=== PATIENT | female | born 1955 | race Caucasian/White ===

== ENCOUNTER 2023-03-18 08:19 | Outpatient (OUT) | payer MEDICARE, SELFPAY ==
--- NOTE | 2023-03-18 08:30 | MM_ITS ---
Patient: RIAZ HUMPHREY Exam Date: 03/18/2023 : 1955 Gender:F Ordering : DR Rubina Lombadri M.D. Admission #: [id number] Family : Non-Staff Physician Order #: [id number] CLICK HERE TO VIEW EXAM RADIOLOGY REPORT PROCEDURE: MM TOMOSYNTHESIS SCREENING BI COMPARISON: MG MAMM SCREEN 3D ALISHA CAD, 03/13/2022. MG MAMM SCREEN 3D ALISHA CAD, 03/02/2021. INDICATIONS: Screening mammogram Z12.31 Calculator Name NCI Breast Cancer Risk Assessment Tool 5 Year Breast Cancer Risk n/a% Lifetime Breast Cancer Risk n/a% Personal Breast Cancer Yes, Right intraductal breast cancer age 55 Personal Ovarian Cancer No Treatments Lumpectomy, Tamoxifen, Radiation Family Cancers None LOCATION: [facility] BREAST COMPOSITION: Heterogeneously dense,which may obscure small masses. FINDINGS: DIAGNOSTIC CATEGORY 2--BENIGN FINDING. NO CHANGE FROM COMPARISON. Bilateral linear scar markers. Scattered benign-appearing nodules are present. Scattered benign-appearing calcifications are present. Scattered benign-appearing lymph nodes are present. RIGHT BREAST: No significant suspicious finding. Micro clip marker upper inner quadrant, posterior breast. LEFT BREAST: No significant suspicious finding. Micro clip marker lower inner quadrant, posterior breast. RECOMMENDATIONS: ROUTINE MAMMOGRAM AND CLINICAL EVALUATION IN 12 MONTHS. PLEASE NOTE: A NORMAL MAMMOGRAM DOES NOT EXCLUDE THE POSSIBILITY OF BREAST CANCER. A CLINICALLY SUSPICIOUS PALPABLE LUMP SHOULD BE BIOPSIED. Dictated by: Julian Page MD on 03/18/2023 at 13:11 Approved by: Julian Page MD on 03/18/2023 at 13:13
== END 2023-03-18 08:20 | disposition home or self-care (01) ==
LOC: MAMMO 08:24
PROVIDERS: PCP Family Medicine
DX: Z12.31 Encounter for screening mammogram for malignant neoplasm of breast (principal)
CPT/HCPCS: 77063; 77067

== ENCOUNTER 2024-03-13 07:51 | Outpatient (OUT) | payer MEDICARE, SELFPAY ==
--- NOTE | 2024-03-13 | ECG_ITS ---
[facility] Test Date: 2024-03-13 Pat Name: Silvana Gómez Department: Room: - Gender: Female Project Eng: : 1955 Requested By: JAMIE RAMIREZ Order Number: [id number] Reading MD: NEAL ROTHMAN Measurements Intervals [place] Rate: 67 P: 51 DC: 130 QRS: 70 QRSD: 93 T: 53 QT: 398 QTc: 421 Interpretive Statements SINUS RHYTHM Compared to ECG 02/22/2020 02:06:32 No significant changes Electronically Signed On 03-15-2024 7:54:34 EDT by NEAL ROTHMAN
[2024-03-13 08:30] LABS: Basophils Percent Auto 0.7 % (0.2-2.0); Eosinophils Absolute Auto 0.5 10^3/uL (0.0-0.7); Eosinophils Percent Auto 8.9 % (0.9-7.0); Hematocrit 41.8 % (36.0-48.0); Hemoglobin 13.4 g/dL (12.0-16.0); Immature Granulocytes Abs Auto 0.01 10^3/uL (0.00-0.03); Immature Granulocytes Pct Auto 0.2 % (0.0-0.5); Lymphocytes Absolute Auto 1.4 10^3/uL (1.2-3.8); Lymphocytes Percent Auto 25.6 % (20.5-60.0); Mean Corpuscular HGB Conc 32.1 g/dL (29.9-35.2); Mean Corpuscular Hemoglobin 28.8 pg (26.7-34.0); Mean Corpuscular Volume 89.7 fL (81.0-99.0); Mean Platelet Volume 9.2 fL (9.5-13.5); Monocytes Absolute Auto 0.5 10^3/uL (0.3-0.8); Monocytes Percent Auto 8.5 % (1.7-12.0); Neutrophils Percent Auto 56.1 % (43.0-75.0); Platelet Count 235 10^3/uL (150-450); Red Blood Count 4.66 10^6/uL (4.20-5.40); Red Cell Distribution Width 13.6 % (11.0-15.0); White Blood Count 5.4 10^3/uL (4.0-11.0)
[2024-03-13 09:30] LABS: Free T4 0.82 ng/dL (0.76-1.46)
[2024-03-13 09:50] LABS: Alanine Aminotransferase 20 U/L (14-59); Albumin Globulin Ratio 1.1; Albumin Level 3.6 g/dL (3.4-5.0); Alkaline Phosphatase 66 U/L (46-116); Anion Gap 11.3; Aspartate Amino Transferase 12 U/L (15-37); BUN Creatinine Ratio 15.2; Bilirubin Total 0.3 mg/dL (0.2-1.0); Calcium 8.7 mg/dL (8.5-10.1); Carbon Dioxide 27.7 mmol/L (21.0-32.0); Chloride 106 mmol/L (98-107); Chol HDL Ratio 2.9; Cholesterol 200 mg/dL (<=200); Estimated GFR (African America >60 (>=60); Estimated GFR (Non-African Ame >60 (>=60); Globulin 3.4 g/dL; Glucose 105 mg/dL (74-106); HDL Cholesterol 68 mg/dL (40-60); Sodium 141 mmol/L (136-145); Thyroid Stimulating Hormone 3.626 uIU/mL (0.358-3.740); Triglycerides 129 mg/dL (<=150); VLDL CHOLESTEROL 25.8 mg/dL
[2024-03-15 12:07] LABS: PTH, Intact 64 pg/mL (15-65)
== END 2024-03-13 07:52 | disposition home or self-care (01) ==
LOC: LAB 07:51
PROVIDERS: PCP Family Medicine; Visit Provider Family Medicine
DX: R07.89 Other chest pain (principal); E03.9 Hypothyroidism, unspecified; E78.5 Hyperlipidemia, unspecified; E21.3 Hyperparathyroidism, unspecified
CPT/HCPCS: 36415; 80053; 80061; 83970; 84439; 84443; 85025; 93005

== ENCOUNTER 2024-05-04 08:52 | Outpatient (OUT) | payer MEDICARE, SELFPAY ==
--- NOTE | 2024-05-04 09:02 | XR_ITS ---
[address] [address] Patient Name: RIAZ HUMPHREY MRN: [id number] date: 1955 Sex: F Assigned Patient Location: [facility] Current Patient Location: Accession/Order Number: [id number] Exam Date: 05/04/2024 09:33 Report Date: 05/05/2024 06:40 At the request of: JAMIE RAMIREZ Procedure: XR DEXA axial skeleton EXAMINATION: XR DEXA axial skeleton HISTORY: Menopause Present Z78.0 COMPARISON: DEXA bone densitometry 06/23/2020 TECHNIQUE: Dual-energy X-ray absorptiometry (DXA) was performed. FINDINGS: SPINE ANALYSIS: Average bone mineral density is 1.087 g/cm2. T-score (standard deviation relative to young adult mean): -0.8 . -9.5% change since prior study. HIP ANALYSIS: Lowest bone mineral density is within the left femoral neck, 0.919 g/cm2. T-score (standard deviation relative to young adult mean): -0.9 . XR/XR DEXA axial skeleton IMPRESSION: World Health Organization Classification: Normal - Low Fracture Risk FRAX: Cannot calculate. Pharmacologic treatment recommendations * No uniform recommendation applies to all patients. Management plans must be individualized. * Consider initiating pharmacologic treatment in postmenopausal women and men >= 50 years of age who have the following: Primary fracture prevention: * T-score <= - 2.5 at the femoral neck, total hip, lumbar spine, 33% radius (some uncertainty with existing data) by DXA. * Low bone mass (osteopenia: T-score between - 1.0 and - 2.5) at the femoral neck or total hip by DXA with a 10-year hip fracture risk >= 3% or a 10-year major osteoporosis-related fracture risk >= 20% (i.e., clinical vertebral, hip, forearm, or proximal humerus) based on the [place]-adapted FRAXregistered model. Secondary fracture prevention: * Fracture of the hip or vertebra regardless of BMD [4, 5]. * Fracture of proximal humerus, pelvis, or distal forearm in persons with low bone mass (osteopenia: T-score between - 1.0 and - 2.5). The decision to treat should be individualized in persons with a fracture of the proximal humerus, pelvis, or distal forearm who do not have osteopenia or low BMD [12, 13]. Yesica MS, Sara SL, Stephany KL, Marizol EM, Myah KG, AJ, Alyson ES. The clinician's guide to prevention and treatment of osteoporosis. Osteoporos Int. 2021;33(10):5924-8772. doi: 10.1007/a77986-788-83820-x. Epub 2021Jan 18. Erratum in: Osteoporos Int. 2021Apr 19;: PMID: [id number]; PMCID: [id number]. Electronically authenticated by: OWEN AVENDANO Date: 05/05/2024 06:40
--- NOTE | 2024-05-04 09:02 | MM_ITS ---
Patient Name: RIAZ HUMPHREY MR#: [id number] : 1955 Exam Date: 05/04/2024 Ordering Doctor: DR Rubina Lombardi M.D. RADIOLOGY REPORT PROCEDURE: MM TOMOSYNTHESIS SCREENING BI COMPARISON: MM TOMOSYNTHESIS SCREENING BI, 03/18/2023. MG MAMM SCREEN 3D ALISHA CAD, 03/13/2022. INDICATIONS: Screening Calculator Name NCI Breast Cancer Risk Assessment Tool 5 Year Breast Cancer Risk n/a% Lifetime Breast Cancer Risk n/a% Personal Breast Cancer Yes, Right intraductal breast cancer age 55 Personal Ovarian Cancer No Treatments Lumpectomy, Tamoxifen, Radiation Family Cancers None LOCATION: [facility] BREAST COMPOSITION: The breasts are heterogeneously dense,which may obscure small masses. FINDINGS: DIAGNOSTIC CATEGORY 2--BENIGN FINDING. NO CHANGE FROM COMPARISON. Scattered benign-appearing nodules are present. Scattered benign-appearing calcifications are present. Scattered benign-appearing lymph nodes are present. Bilateral linear scar markers RIGHT BREAST: No significant suspicious finding. Micro clip marker upper inner quadrant, posterior breast, stable LEFT BREAST: No significant suspicious finding. RECOMMENDATIONS: ROUTINE MAMMOGRAM AND CLINICAL EVALUATION IN 12 MONTHS. PLEASE NOTE: A NORMAL MAMMOGRAM DOES NOT EXCLUDE THE POSSIBILITY OF BREAST CANCER. A CLINICALLY SUSPICIOUS PALPABLE LUMP SHOULD BE BIOPSIED. Dictated by: Julian Page MD on 05/04/2024 at 11:58 Approved by: Julian Page MD on 05/04/2024 at 12:00
--- OUTSIDE RECORDS SUMMARY | 2024-05-04 09:07 | XMS_ITS | CCD ---
Author Organization [facility] Care Team Providers Care Mandrel Cleaner Name Role Phone Rubina Ramirez MD Primary Care Provider DR RUBINA RAMIREZ Admitting Unavailable RAMIREZ, DR RUBINA Pena Attending Unavailable JAMES, DR RUBINA Pena Primary Care Unavailable JAMES, DR RUBINA Pena Consulting Unavailable HOWIE, CHANDLER Consulting Unavailable KAI CARPENTER Admitting Unavailable KAI CARPENTER Attending Unavailable JAMES, DR RUBINA Pena Primary Care Unavailable Linden, DR Jordan Consulting Unavailable FABIO KAI Consulting Unavailable JAMES, DR RUBINA Pnea Admitting Unavailable RAMIREZ, DR RUBINA Pena Attending Unavailable RAMIREZ, DR RUBINA Pena Primary Care Unavailable RAMIREZ, DR RUBINA Pena Consulting Unavailable ROHIT DUMONT JR Admitting Unavailable ROHIT DUMONT JR Attending Unavailable JAMES, DR RUBINA Pena Primary Care Unavailable Rubina Ramirez Unavailable Rubina Ramirez MD Primary Care Provider eLif Carias Unavailable SELF Referring Unavailable KAI CARPENTER Attending Unavailable RUBINA RAMIREZ Primary Care Unavailable SELF Referring Unavailable RUBINA RAMIREZ Primary Care Unavailable IZABELA PADILLA Attending Unavailable Allergies Allergy Classification Reported Allergen(s) Allergy Type Date of Onset Reaction(s) Facility (4 sources) Seasonal allergy; Translations: [SEASONAL ALLERGIES] Propensity to adverse reactions 0 [facility] (1 source) patient allergy list reviewed by nurse or physicia Propensity to adverse reactions 7 Comment:Done [facility] 401 Other (1 source) Allergies Reconciled Propensity to adverse reactions 1 Unknown [facility] Other Medications Current Medications Medication Drug Class(es) Dates Sig (Normalized) Sig (Original) ascorbic acid 226 mg / beta carotene 67760 unt / cuprous oxide 0.8 mg / dl-alpha tocopheryl acetate 200 unt / zinc oxide 34.8 mg oral capsule (3 sources) Vitamin C PreserVision ARE DS - as directed Orally Active Multi Complete - (3 sources) Multi Complete - as directed Orally Active omeprazole 10 mg delayed release oral capsule (5 sources) Proton Pump Inhibitor take 1 capsule by mouth once daily Omeprazole 10 MG 1 capsule 30 minutes before morning meal Orally Once a day Active OMEPRAZOLE MAGNE SIUM (PRILOSEC OTC ORAL) Take 1 tablet by mouth as needed. 0 Active Comment on above: Take 1 tablet by ruddy th as needed. rosuvastatin calcium 10 mg oral tablet (6 sources) HMG-CoA Reductase Inhibitor Start: 12-24-2019 take 1 tablet by mouth every twenty-four hours Crestor 10 MG 1 tablet Orally Once a day for 90 days Sep, Active Comment on above: Take 10 mg by mouth once daily. Completed/Discontinued Medications Medication Drug Class(es) Dates Sig (Normalized) Sig (Original) aspirin 81 mg delayed release oral tablet (1 source) Platelet Aggregation Inhibitor, Nonsteroidal Anti-inflammatory Drug End: 03-20-2022 aspirin, enteric coated (ADULT LOW DOSE ASPIRIN) 81 mg EC tablet Take 81 mg by mouth once daily. 0 03/20/2022 Discontinued (Discontinued by Patient) Comment on above: Take 81 mg by mouth once daily. cetirizine hydrochloride 10 mg chewable tablet (1 source) Histamine-1 Receptor Antagonist Start: 01-23-2023 cetirizine HCl (ZYRTEC) 10 mg chewable tablet Take 20 mg by mouth. 0 01/23/2023 Active Comment on above: Take 20 mg by mouth. cholecalciferol 0.025 mg oral capsule (2 sources) Vitamin D take 1 capsule by mouth once daily Cholecalciferol, Vitamin D3, 1,000 unit cap Take 1,000 Units by mouth once daily. 0 Active Comment on above: Take 1,000 Units by mouth once daily. [id number] 0.3 ml EPINEPHrine 1 mg/ml auto-injector (1 source) alpha-Adrenergic Agonist, beta-Adrenergic Agonist, Catecholamine Start: 01-23-2023 EPINEPHrine (EPIPEN 2-MORIS) 0.3 mg/0.3 mL auto-injector famotidine 20 mg oral tablet (1 source) Histamine-2 Receptor Antagonist Start: 04-18-2023 take 1 tablet by mouth every twelve hours famotidine (PEPCID) 20 mg tablet Take 1 tablet by mouth every 12 hours. 0 04/18/2023 Active Comment on above: Take 1 tablet by ruddy th every 12 hours. fluticasone propionate 0.05 mg/actuat metered dose nasal spray (2 sources) Corticosteroid take 1 spray(s) nasal route once daily fluticasone (FLONASE) 50 mcg/actuation nasal spray Use 1 [place] in each nostril once daily. 0 Active Comment on above: Use 1 [place] in each nostril once daily. hydrOXYzine hydrochloride 25 mg oral tablet (1 source) Antihistamine Start: 04-18-2023 take 1-2 tablets by mouth once daily at bedtime hydrOXYzine HCl (ATARAX) 25 mg tablet TAKE 1 - 2 TABLETS BY MOUTH EVERYDAY AT BEDTIME 0 04/18/2023 Active Comment on above: TAKE 1 - 2 TABLETS B Y MOUTH EVERYDAY AT BEDTIME KRILL OIL ORAL (1 source) End: 03-20-2022 KRILL OIL ORAL Take by mouth once daily. 0 03/20/2022 Discontinued (Discontinued by Patient) Comment on above: Take by mouth once d aily. levothyroxine sodium 0.075 mg oral tablet (6 sources) l-Thyroxine Start: 05-19-2018 take 1 tablet by mouth once daily SYNTHROID 75 mcg tablet Take 75 mcg by mouth once daily. 0 05/19/2018 Active Levothyroxine So dium 75 MCG TAKE 1 TABLET BY MOUTH EVERY DAY IN THE MORNING ON EMPTY STOMACH FOR 90 DAYS for 90 days Active Comment on above: Take 75 mcg by mouth once daily. montelukast 10 mg oral tablet (1 source) Leukotriene Receptor Antagonist Start: 023 take 1 tablet by mouth once montelukast (SINGULAIR) 10 mg tablet Take 1 tablet by mouth every afternoon. 0 04/18/2023 Active Comment on above: Take 1 tablet by ruddy th every afternoon. predniSONE 50 mg oral tablet (1 source) Start: 023 take 1 tablet by mouth once daily predniSONE (DELTASONE) 50 mg TAKE 1 TABLET BY MOUTH ONCE DAILY AT ONSET OF SWELLING OR HIVES 0 01/23/2023 Active Comment on above: TAKE 1 TABLET BY RUDDY TH ONCE DAILY AT ONSET OF SWELLING OR HIVES sulfamethoxazole 800 mg / trimethoprim 160 mg oral tablet (2 sources) Dihydrofolate Reductase Inhibitor Antibacterial, Sulfonamide Antimicrobial Start: 022 sulfamethoxazole-trim ethoprim (BACTRIM DS,SEPTRA DS) 800-160 mg per tablet triamcinolone acetonide 40 mg/ml injectable suspension (3 sources) Corticosteroid Start: 023 Kenalog-40 Dec, 60 mg VIT C/MAISHA AC/LUT/COPPER/ZNOX (PRESERVISION LUTEIN ORAL) (3 sources) VIT C/MAISHA AC/LUT/COPPER/ZNOX (PRESERVISION LUTEIN ORAL) Take by mouth. 0 Active Comment on above: Take by mouth. vitamin b12 1 mg oral tablet (2 sources) Vitamin B12 take 1 tablet by mouth once daily cyanocobalamin (VITAMIN B-12) 1,000 mcg tab Take 1,000 mcg by mouth once daily. 0 Active Comment on above: Take 1,000 mcg by mo [facility] once daily. Problems Active Problems Problem Classification Problem Date Documented Date Episodic/Chronic Allergic reactions (1 source) Urticaria, unspecified Episodic Cancer of breast (7 sources) Malignant neoplasm of lower-inner quadrant of female breast; Translations: [Malignant neoplasm of lower-inner quadrant of right female breast] Onset: 11-08-2009 Chronic Cardiac dysrhythmias (4 sources) Supraventricular tachycardia; Translations: [Supraventricular tachycardia] Onset: 04-26-2020 04-26-2020 Chronic Disorders of lipid metabolism (5 sources) Hyperlipidemia, unspecified; Translations: [Hyperlipidemia] Onset: 02-12-2019 Chronic Genitourinary symptoms and ill-defined conditions (5 sources) Dysuria; Translations: [Dysuria] Onset: 03-19-2022 Episodic Lymphadenitis (1 source) Lymphadenopathy; Translations: [Enlarged lymph nodes, unspecified] Episodic Menopausal disorders (1 source) Atrophic vaginitis; Translations: [Postmenopausal atrophic vaginitis] Onset: 07-25-2009 Chronic Nonspecific chest pain (1 source) Chest pain; Translations: [Chest pain, unspecified] Episodic Other endocrine disorders (1 source) Hyperparathyroidism; Translations: [Hyperparathyroidism, unspecified] Onset: 01-21-2017 Chronic Other injuries and conditions due to external causes (1 source) History of fall; Translations: [History of falling] Episodic Other non-traumatic joint disorders (1 source) Arthralgia of the ankle and/or foot; Translations: [Pain in right ankle and joints of right foot] Episodic Other screening for suspected conditions (not mental disorders or infectious disease) (6 sources) Patient encounter status; Translations: [Encounter for other screening for malignant neoplasm of breast] Onset: 03-13-2022 Episodic Other upper respiratory disease (3 sources) Seasonal allergic rhinitis; Translations: [Other seasonal allergic rhinitis] Chronic Other upper respiratory disease (1 source) Other seasonal allergic rhinitis Chronic Other upper respiratory disease (1 source) Allergic rhinitis; Translations: [Allergic rhinitis, unspecified] Chronic Residual codes; unclassified (1 source) Normal body mass index; Translations: [Body mass index (BMI) 22.0-22.9, adult] Episodic Thyroid disorders (2 sources) Hypothyroidism, unspecified; Translations: [Hypothyroidism] Onset: 05-29-2022 Chronic Past or Other Problems Problem Classification Problem Date Documented Da te Episodic/Chronic Cancer of breast (2 sources) Personal history of malignant neoplasm of breast; Translations: [Personal history of primary malignant neoplasm of breast] Onset: 03-24-2015 Episodic Mycoses (1 source) Onychomycosis due to dermatophyte ; Translations: [Dermatophytosis of nail] Onset: 09-07-2015 Episodic Other bone disease and musculoskeletal deformities (3 sources) Osteopenia; Translations: [Other specified disorders of bone density and structure, unspecified site] Onset: 06-25-2017 06-25-2017 Episodic Other non-traumatic joint disorders (1 source) Arthralgia of the lower leg; Translations: [Pain in right knee] Onset: 03-24-2015 Episodic Unclassified (1 source) Gynecological examination normal; Translations: [Routine gynecological examination] Onset: 04-02-2006 Results Test Name Value Interpretation Reference Range Facil shelly Stoddard 10-22-2023 SAADIA Telephone ([facility]) SILVANA HUMPHREY ([id number]) 1955 F Date Time Provider Department 10/22/23 STOMA THERAPY [facility] During your visit today, we recorded the following information about you: Portia Ghosh PCNA 10/22/2023 3:30 PM Signed Patient would like to speak to a stoma nurse, needs item#s to put in an order. Call back# [phone] Thank you, Portia Augie Coordinator II [facility] nursing Norah Morrow RN 10/22/2023 4:08 PM Signed Phone call was entered in error. Allergies As of Date: 10/22/2023 Noted Allergy Reaction SEASONAL ALLERGIES 10/18/2009 Date Reviewed: 05/21/2023 Reviewed by: Kai Carpenter MD - Fully Assessed Prescriptions as of 10/22/2023 - cetirizine HCl (ZYRTEC) 10 mg chewable tablet Take 20 mg by mouth. - EPINEPHrine (EPIPEN 2-MORIS) 0.3 mg/0.3 mL auto-injector - famotidine (PEPCID) 20 mg tablet Take 1 tablet by mouth every 12 hours. - hydrOXYzine HCl (ATARAX) 25 mg tablet TAKE 1 - 2 TABLETS BY MOUTH EVERYDAY AT BEDTIME - montelukast (SINGULAIR) 10 mg tablet Take 1 tablet by mouth every afternoon. - predniSONE (DELTASONE) 50 mg TAKE 1 TABLET BY MOUTH ONCE DAILY AT ONSET OF SWELLING OR HIVES - rosuvastatin (CRESTOR) 10 mg tablet Take 10 mg by mouth once daily. - SYNTHROID 75 mcg tablet Take 75 mcg by mouth once daily. - VIT C/MAISHA AC/LUT/COPPER/ZNOX (PRESERVISION LUTEIN ORAL) Take by mouth. Meds Comments as of 04/27/2013: Patient taking no meds Problem List As Of Date 10/22/2023 Noted Resolved Breast Cancer [C50.919] 11/08/2009 Malignant neoplasm of female breast (HCC) [C50.*11/27/2009 Osteopenia [M85.80] 06/25/2017 SVT (supraventricular tachycardia) (HCC) [I47.1*04/26/2020 Encounter Status:Closed by NORHA MORROW on 10/22/23 [facility] 05-22-2023 CNPN Telephone ([facility]) KAMSILVANA ([id number]) 1955 F Date Time Provider Department 05/22/23 KAI CARPENTER [facility] During your visit today, we recorded the following information about you: Jennifer Power 05/22/2023 9:07 AM Signed Patient states she should have a Mammogram ordered before her next appointment and you will typically order that for her. If in agreement, Can you please order Mammogram? Thanks! Kai Herzog MD 05/23/2023 8:42 AM Signed Order placed Jennifer Power 05/23/2023 10:55 AM Signed Faxed order to [facility]. Jennifer Power Allergies As of Date: 05/22/2023 Noted Allergy Reaction SEASONAL ALLERGIES 10/18/2009 Date Reviewed: 05/21/2023 Reviewed by: Kai Carpenter MD - Fully Assessed Reason for Visit: Orders [681] Primary Visit Diagnosis:Encounter for screening mammogram for malignant neoplasm of breast [Z12.31] Order(s):[facility] SCREENING W MARY LOU [[id number]] Order #: [id number] FUTURE Prescriptions as of 05/23/2023 - cetirizine HCl (ZYRTEC) 10 mg chewable tablet Take 20 mg by mouth. - EPINEPHrine (EPIPEN 2-MORIS) 0.3 mg/0.3 mL auto-injector - famotidine (PEPCID) 20 mg tablet Take 1 tablet by mouth every 12 hours. - hydrOXYzine HCl (ATARAX) 25 mg tablet TAKE 1 - 2 TABLETS BY MOUTH EVERYDAY AT BEDTIME - montelukast (SINGULAIR) 10 mg tablet Take 1 tablet by mouth every afternoon. - predniSONE (DELTASONE) 50 mg TAKE 1 TABLET BY MOUTH ONCE DAILY AT ONSET OF SWELLING OR HIVES - rosuvastatin (CRESTOR) 10 mg tablet Take 10 mg by mouth once daily. - SYNTHROID 75 mcg tablet Take 75 mcg by mouth once daily. - VIT C/MAISHA AC/LUT/COPPER/ZNOX (PRESERVISION LUTEIN ORAL) Take by mouth. Meds Comments as of 04/27/2013: Patient taking no meds Problem List As Of Date 05/22/2023 Noted Resolved Breast Cancer [C50.919] 11/08/2009 Malignant neoplasm of female breast (HCC) [C50.*11/27/2009 Osteopenia [M85.80] 06/25/2017 SVT (supraventricular tachycardia) (HCC) [I47.1]04/26/2020 Encounter Status:Closed by JENNIFER POWER on 05/23/23 Normal [facility] CBC W Auto Differential pane l (Bld)on 05-21-2023 Basophils (Bld) [#/Vol] 10*3/uL Normal <0.11 [facility] Comment on above: Order Comment: Speci men Type: BLOOD SPECIMEN Ordering Facility: [facility] Address: [address] [place] [address] Performed By: #### 5 7021-8 #### [facility] CLIA [id number] [address] [place] [address]229 Basophils/100 WBC (Bld) 0.1 % Normal [facility] Comment on above: Order Comment: Speci men Type: BLOOD SPECIMEN Ordering Facility: [facility] Address: [address] [place] [address] Performed By: #### 5 7021-8 #### [facility] CLIA [id number] [address] [place] [address] 79079 Differential cell count method Nom (Bld) Auto Normal [facility] Comment on above: Order Comment: Speci men Type: BLOOD SPECIMEN Ordering Facility: [facility] Address: [address] [place] [address] Performed By: #### 5 7021-8 #### [facility] CLIA [id number] [address] [place] [address] 52423 Eosinophils (Bld) [#/Vol] 0.40 10*3/uL Normal <0.46 [facility] Comment on above: Order Comment: Speci men Type: BLOOD SPECIMEN Ordering Facility: [facility] Address: [address] [address] Performed By: #### 5 7021-8 #### [facility] CLIA [id number] [address] [place] [address] 65565 Eosinophils/100 WBC (Bld) 5.7 % Normal [facility] Comment on above: Order Comment: Speci men Type: BLOOD SPECIMEN Ordering Facility: [facility] Address: [address] [address] Performed By: #### 5 7021-8 #### [facility] CLIA [id number] [address] [place] [address] 54952 Erythrocyte distribution width (RBC) [Ratio] 13.2 % Normal 11.5-15.0 [facility] Comment on above: Order Comment: Speci men Type: BLOOD SPECIMEN Ordering Facility: [facility] Address: [address] [address] Performed By: #### 5 7021-8 #### [facility] CLIA [id number] [address] [place] [address] 72807 Hematocrit (Bld) [Volume fraction] 41.9 % Normal 36.0-46.0 [facility] Comment on above: Order Comment: Speci men Type: BLOOD SPECIMEN Ordering Facility: [facility] Address: [address] [address] Performed By: #### 5 7021-8 #### [facility] CLIA [id number] [address] [place] [address] 61747 Hemoglobin (Bld) [Mass/Vol] 13.8 g/dL Normal 11.5-15.5 [facility] Comment on above: Order Comment: Speci men Type: BLOOD SPECIMEN Ordering Facility: [facility] Address: [address] [address] Performed By: #### 5 7021-8 #### [facility] CLIA [id number] [address] [place] [address] 25908 Immature granulocytes (Bld) [#/Vol] 10*3/uL Normal <0.10 [facility] Comment on above: Order Comment: Speci men Type: BLOOD SPECIMEN Ordering Facility: [facility] Address: [address] [address] Performed By: #### 5 7021-8 #### [facility] CLIA [id number] [address] [place] [address] 72326 Immature granulocytes/100 WBC (Bld) 0.3 % Normal [facility] Comment on above: Order Comment: Speci men Type: BLOOD SPECIMEN Ordering Facility: [facility] Address: [address] [place] [address] Performed By: #### 5 7021-8 #### [facility] CLIA [id number] [address] [place] [address] 95577 Lymphocytes (Bld) [#/Vol] 1.53 10*3/uL Normal 1.00-4.00 [facility] Comment on above: Order Comment: Speci men Type: BLOOD SPECIMEN Ordering Facility: [facility] Address: [address] [place] [address] Performed By: #### 5 7021-8 #### [facility] CLIA [id number] [address] [place] [address] 69526 Lymphocytes/100 WBC (Bld) 22.0 % Normal [facility] Comment on above: Order Comment: Speci men Type: BLOOD SPECIMEN Ordering Facility: [facility] Address: [address] [address] Performed By: #### 5 7021-8 #### [facility] CLIA [id number] [address] [place] [address] 14247 MCH (RBC) [Entitic mass] 29.2 pg Normal 26.0-34.0 [facility] Comment on above: Order Comment: Speci men Type: BLOOD SPECIMEN Ordering Facility: [facility] Address: [address] [address] Performed By: #### 5 7021-8 #### [facility] CLIA [id number] [address] [place] [address] 39566 MCHC (RBC) [Mass/Vol] 32.9 g/dL Normal 30.5-36.0 [facility] Comment on above: Order Comment: Speci men Type: BLOOD SPECIMEN Ordering Facility: [facility] Address: [address] [address] Performed By: #### 5 7021-8 #### [facility] CLIA [id number] [address] [place] [address] 67241 MCV (RBC) [Entitic vol] 88.6 fL Normal 80.0-100.0 [facility] Comment on above: Order Comment: Speci men Type: BLOOD SPECIMEN Ordering Facility: [facility] Address: [address] [address] Performed By: #### 5 7021-8 #### [facility] CLIA [id number] [address] [place] [address] 64373 Monocytes (Bld) [#/Vol] 0.52 10*3/uL Normal <0.87 [facility] Comment on above: Order Comment: Speci men Type: BLOOD SPECIMEN Ordering Facility: [facility] Address: [address] [address] Performed By: #### 5 7021-8 #### [facility] CLIA [id number] [address] [place] [address] 30199 Monocytes/100 WBC (Bld) 7.5 % Normal [facility] Comment on above: Order Comment: Speci men Type: BLOOD SPECIMEN Ordering Facility: [facility] Address: [address] [place] [address] Performed By: #### 5 7021-8 #### [facility] CLIA [id number] [address] [place] [address] 30525 Neutrophils (Bld) [#/Vol] 4.49 10*3/uL Normal 1.45-7.50 [facility] Comment on above: Order Comment: Speci men Type: BLOOD SPECIMEN Ordering Facility: [facility] Address: [address] [address] Performed By: #### 5 7021-8 #### [facility] CLIA [id number] [address] [place] [address] 25221 Neutrophils/100 WBC (Bld) 64.4 % Normal [facility] Comment on above: Order Comment: Speci men Type: BLOOD SPECIMEN Ordering Facility: [facility] Address: [address] [address] Performed By: #### 5 7021-8 #### [facility] CLIA [id number] [address] [place] [address] 51748 Nucleated RBC (Bld) [#/Vol] 10*3/uL Normal <0.01 [facility] Comment on above: Order Comment: Speci men Type: BLOOD SPECIMEN Ordering Facility: [facility] Address: [address] [address] Performed By: #### 5 7021-8 #### [facility] CLIA [id number] [address] [place] [address] 30583 Nucleated RBC/100 WBC (Bld) [Ratio] 0.0 /100 WBC Normal [facility] Comment on above: Order Comment: Speci men Type: BLOOD SPECIMEN Ordering Facility: [facility] Address: [address] [address] Performed By: #### 5 7021-8 #### [facility] CLIA [id number] [address] [place] [address] 27654 Platelet mean volume (Bld) [Entitic vol] 9.2 fL Normal 9.0-12.7 [facility] Comment on above: Order Comment: Speci men Type: BLOOD SPECIMEN Ordering Facility: [facility] Address: [address] [address] Performed By: #### 5 7021-8 #### [facility] CLIA [id number] [address] [place] [address] Platelets (Bld) [#/Vol] 198 10*3/uL Normal 150-400 [facility] Comment on above: Order Comment: Speci men Type: BLOOD SPECIMEN Ordering Facility: [facility] Address: [address] [place] [address] Performed By: #### 5 7021-8 #### [facility] CLIA [id number] [address] [place] [address] 56285 RBC (Bld) [#/Vol] 4.73 10*6/uL Normal 3.90-5.20 [facility] Comment on above: Order Comment: Speci men Type: BLOOD SPECIMEN Ordering Facility: [facility] Address: [address] [place] [address] Performed By: #### 5 7021-8 #### [facility] CLIA [id number] [address] [place] [address] 39350 WBC (Bld) [#/Vol] 6.97 10*3/uL Normal 3.70-11.00 [facility] Comment on above: Order Comment: Speci men Type: BLOOD SPECIMEN Ordering Facility: [facility] Address: [address] [place] [address] Performed By: #### 5 7021-8 #### [facility] CLIA [id number] [address] [place] [address] 38490 CNOVSPon 05-21-2023 CNOVSP Visit (SP) Office ([facility]) SILVANA HUMPHREY ([id number]) 1955 F Date Time Provider Department 05/21/23 3:00 PM KAI CARPENTER During your visit today, we recorded the following information about you: Temperature Pulse Respiration Blood pressure 97.6 degrees 74/minute 16/minute 134/70 Weight 63 kg Kai Carpenter MD 05/21/2023 3:38 PM Signed Patient: Silvana Humphrey Location: [facility] : 1955 Attending Physician: Dr.Kasra Carpenter Date: May 21, 2023 Note Type: Progress Note Chief Complaint: Breast cancer. HPI: Ms. Humphrey is a 68-year-old woman with a history of right breast cancer 07/2009 : abnormality seen on screening mammogram, biopsy recommended 08/2010 : completes biopsy, notes intraductal carcinoma- [facility] review notes invasive ductal carcinoma and DCIS 09/2009 : MRI breast completed and follow up with Dr. 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 Pineda and Dr. Ward : therapy held during evaluation 04/2013 : estradiol in post-menopausal range- started anastrazole 05/2014 : repeat estradiol level was 30, restarted tamoxifen 08/2014 : repeat testing notes post-menopausal levels of estradiol and starts aromasin 04/2018 : patient notes continued symptoms of dyspareunia, joint aches and worsening hot flashes, stops aromasin and declines further hormonal therapy 02/2021: Mammogram Dexa Scan 05/2021: Screening colonoscopy: negative Patient returns in follow up today. Previously followed by Dr. Lieberman. She feels well wxcept for Hives which she is seeing an electrician's helper and they feel that it may be an autoimmune disease Past Medical History: Breast cancer as above, benign breast lesions as above, and seasonal allergies. REVIEW OF SYSTEMS: CONSTITUTIONAL: Patient is currently in her baseline state health, no fevers chills or sweats, no current hot flashes CARDIOVASCULAR: No chest pain, dyspnea, palpitations, orthopnea, PND, ankle edema. PULM: No dyspnea, unexplained cough. Has not been wheezing recently GI: No dysphagia/odynophagia , problematic reflux, constipation, diarrhea, changes in stool habits, hematochezia, melena. Last colonoscopy 2009. :denies vaginal bleeding, denies pain with intercourse NEURO: Denies issues with neuropathy or focal muscle deficits MUSC-SKEL: Joint discomfort resolved INTEGUMENTARY: No bruising rash or jaundice END: No current hot flashes Breast: Denies changes on self breast examination Current Outpatient Medications Medication Sig Dispense Refill cetirizine HCl (ZYRTEC) 10 mg chewable tablet Take 20 mg by mouth. EPINEPHrine (EPIPEN 2-MORIS) 0.3 mg/0.3 mL auto-injector famotidine (PEPCID) 20 mg tablet Take 1 tablet by mouth every 12 hours. hydrOXYzine HCl (ATARAX) 25 mg tablet TAKE 1 - 2 TABLETS BY MOUTH EVERYDAY AT BEDTIME montelukast (SINGULAIR) 10 mg tablet Take 1 tablet by mouth every afternoon. predniSONE (DELTASONE) 50 mg TAKE 1 TABLET BY MOUTH ONCE DAILY AT ONSET OF SWELLING OR HIVES rosuvastatin (CRESTOR) 10 mg tablet Take 10 mg by mouth once daily. SYNTHROID 75 mcg tablet Take 75 mcg by mouth once daily. VIT C/MAISHA AC/LUT/COPPER/ZNOX (PRESERVISION LUTEIN ORAL) Take by mouth. sulfamethoxazole-trim ethoprim (BACTRIM DS,SEPTRA DS) 800-160 mg per tablet Cholecalciferol, Vitamin D3, 1,000 unit cap Take 1,000 Units by mouth once daily. fluticasone (FLONASE) 50 mcg/actuation nasal spray Use 1 [place] in each nostril once daily. cyanocobalamin (VITAMIN B-12) 1,000 mcg tab Take 1,000 mcg by mouth once daily. No current facility-administered medications for this visit. Allergies: No known drug allergies. Review Of Systems: BP 103/69 Pulse 76 Temp (Src) 98.2 (Oral) Resp 18 Ht 5' 5 (1.65m) Wt 137 lb 3.2 oz (62.2kg) SpO2 100% BMI 22.83 kg/(m2). PHYSICAL EXAMINATION General: Alert and oriented, no distress, pleasant and cooperative. Heart: Regular, normal S1 and S2, no murmurs, rubs, or gallops Lungs: Clear to auscultation bilaterally no crackles or wheezes Abdomen: NT, ND no organomegaly Extremities: Feet/ankles without edema, posterior tibial pulses full and symmetrical Breast: No palpable nodules or other worrisome findings in either breast Lymph: no cervical, supraclavicular or axillary adenopathy Skin: no sores or other lesions, no bruising Msk: no joint swelling or tender areas. Breast: no masses bilaterall and no axillary fulln (more content not included)... Normal [facility] Comprehensive metabolic 2000 panelon 05-21-2023 Albumin [Mass/Vol] 4.8 g/dL Normal 3.9-4.9 [facility] Comment on above: Order Comment: Speci men Type: BLOOD SPECIMEN Ordering Facility: [facility] Address: [address] [place] [address] Performed By: #### 2 4323-8 #### [facility] CLIA [id number] [address] [place] [address]142 ALP [Catalytic activity/Vol] 72 U/L Normal 34-123 [facility] Comment on above: Order Comment: Speci men Type: BLOOD SPECIMEN Ordering Facility: [facility] Address: [address] [place] [address] Performed By: #### 2 4323-8 #### [facility] CLIA [id number] [address] [place] [address] 65513 ALT [Catalytic activity/Vol] 13 U/L Normal 7-38 [facility] Comment on above: Order Comment: Speci men Type: BLOOD SPECIMEN Ordering Facility: [facility] Address: [address] [place] [address] Performed By: #### 2 4323-8 #### [facility] CLIA [id number] [address] [place] [address] 31266 Anion gap [Moles/Vol] 12 mmol/L Normal 9-18 [facility] Comment on above: Order Comment: Speci men Type: BLOOD SPECIMEN Ordering Facility: [facility] Address: [address] [address] Performed By: #### 2 4323-8 #### [facility] CLIA [id number] [address] [place] [address] 71384 AST [Catalytic activity/Vol] 16 U/L Normal 13-35 [facility] Comment on above: Order Comment: Speci men Type: BLOOD SPECIMEN Ordering Facility: [facility] Address: [address] [address] Performed By: #### 2 4323-8 #### [facility] CLIA [id number] [address] [place] [address] 29064 Bilirubin [Mass/Vol] 0.2 mg/dL Normal 0.2-1.3 [facility] Comment on above: Order Comment: Speci men Type: BLOOD SPECIMEN Ordering Facility: [facility] Address: [address] [address] Performed By: #### 2 4323-8 #### [facility] CLIA [id number] [address] [place] [address] 08324 Calcium [Mass/Vol] 9.6 mg/dL Normal 8.5-10.2 [facility] Comment on above: Order Comment: Speci men Type: BLOOD SPECIMEN Ordering Facility: [facility] Address: [address] [address] Performed By: #### 2 4323-8 #### [facility] CLIA [id number] [address] [place] [address] 14951 Chloride [Moles/Vol] 104 mmol/L Normal 97-105 [facility] Comment on above: Order Comment: Speci men Type: BLOOD SPECIMEN Ordering Facility: [facility] Address: [address] [address] Performed By: #### 2 4323-8 #### [facility] CLIA [id number] [address] [place] [address] 95960 CO2 [Moles/Vol] 24 mmol/L Normal 22-30 [facility] Comment on above: Order Comment: Speci men Type: BLOOD SPECIMEN Ordering Facility: [facility] Address: [address] [address] Performed By: #### 2 4323-8 #### [facility] CLIA [id number] [address] [place] [address] 39591 Creatinine [Mass/Vol] 0.92 mg/dL Normal 0.58-0.96 [facility] Comment on above: Order Comment: Speci men Type: BLOOD SPECIMEN Ordering Facility: [facility] Address: [address] [address] Performed By: #### 2 4323-8 #### [facility] CLIA [id number] [address] [place] [address] 69285 Creatinine and Glomerular filtration rate.predicted panel (S/P/Bld) 68 mL/min/1.73m??? Normal >=60 [facility] Comment on above: Order Comment: Speci men Type: BLOOD SPECIMEN Ordering Facility: [facility] Address: [address] [place] [address] Result Comment: Lupe mated Glomerular Filtration Rate (eGFR) is calculated using the 2020 CKD-EPI creatinine equation. This equation utilizes serum creatinine, sex, and age as parameters. The creatinine assay has traceable calibration to isotope dilution-mass spectrometry. Refer to KDIGO guidelines for clinical interpretation. In patients with unstable renal function, e.g. those with acute kidney injury, the eGFR may not accurately reflect actual GFR. Performed By: #### 2 4323-8 #### [facility] CLIA [id number] [address] [place] [address] 48242 Glucose [Mass/Vol] 110 mg/dL High 74-99 [facility] Comment on above: Order Comment: Speci anabel Type: BLOOD SPECIMEN Ordering Facility: [facility] Address: [address] [place] [address] Result Comment: The [place] Diabetes Association (ADA) provides guidance for cutoff values for fasting glucose and random glucose. The ADA defines fasting as no caloric intake for at least 8 hours. Fasting plasma glucose results between 100 to 125 mg/dL indicate increased risk for diabetes (prediabetes). Fasting plasma glucose results greater than or equal to 126 mg/dL meet the criteria for diagnosis of diabetes. In the absence of unequivocal hyperglycemia, results should be confirmed by repeat testing. In a patient with classic symptoms of hyperglycemia or hyperglycemic crisis, random plasma glucose results greater than or equal to 200 mg/dL meet the criteria for diagnosis of diabetes. Reference: Standards of Medical Care in Diabetes 2016, [place] [employer] Association. Diabetes Care. 2016.39(Suppl 1). Performed By: #### 2 4323-8 #### [facility] CLIA [id number] [address] [place] [address] Potassium [Moles/Vol] 3.7 mmol/L Normal 3.7-5.1 [facility] Comment on above: Order Comment: Speci anabel Type: BLOOD SPECIMEN Ordering Facility: [facility] Address: [address] [place] [address] Performed By: #### 2 4323-8 #### [facility] CLIA [id number] [address] [place] [address] 66297 Protein [Mass/Vol] 6.8 g/dL Normal 6.3-8.0 [facility] Comment on above: Order Comment: Sonia little Type: BLOOD SPECIMEN Ordering Facility: [facility] Address: [address] [place] [address] Performed By: #### 2 4323-8 #### [facility] CLIA [id number] [address] [place] [address] 34807 Sodium [Moles/Vol] 140 mmol/L Normal 136-144 [facility] Comment on above: Order Comment: Armandoi anabel Type: BLOOD SPECIMEN Ordering Facility: [facility] Address: [address] [address] Performed By: #### 2 4323-8 #### [facility] CLIA [id number] [address] [place] [address] Urea nitrogen [Mass/Vol] 16 mg/dL Normal 7-21 [facility] Comment on above: Order Comment: Speci men Type: BLOOD SPECIMEN Ordering Facility: [facility] Address: [address] [address] Performed By: #### 2 4323-8 #### [facility] CLIA [id number] [address] [place] [address] TSH SerPl-aCncon 05-21-2023 TSH Qn 2.560 m[IU]/L Normal 0.270-4.200 [facility] Comment on above: Order Comment: Speci men Type: BLOOD SPECIMEN Ordering Facility: [facility] Address: [address] [id number] Performed By: #### 3 016-3 #### [facility] CLIA [id number] [address] [facility] [id number] [place], [place] [id number] [facility] CNPNon 03-27-2023 CNPN Telephone (HEMTSA) SILVANA HUMPHREY ([id number]) 1955 F Date Time Provider Department 03/27/23 ROSELINE RED During your visit today, we recorded the following information about you: Roseline Red RN 03/27/2023 4:53 PM Signed Pt aware of negative mammogram results from [facility]. Roseline Red RN Allergies As of Date: 03/27/2023 Noted Allergy Reaction SEASONAL ALLERGIES 10/18/2009 Date Reviewed: 03/20/2022 Reviewed by: Kai Carpenter MD - Fully Assessed Reason for Visit: Results [95] Prescriptions as of 03/27/2023 - sulfamethoxazole-trim ethoprim (BACTRIM DS,SEPTRA DS) 800-160 mg per tablet - rosuvastatin (CRESTOR) 10 mg tablet Take 10 mg by mouth once daily. - SYNTHROID 75 mcg tablet Take 75 mcg by mouth once daily. - Cholecalciferol, Vitamin D3, 1,000 unit cap Take 1,000 Units by mouth once daily. - fluticasone (FLONASE) 50 mcg/actuation nasal spray Use 1 [place] in each nostril once daily. - OMEPRAZOLE MAGNESIUM (PRILOSEC OTC ORAL) Take 1 tablet by mouth as needed. - VIT C/MAISHA AC/LUT/COPPER/ZNOX (PRESERVISION LUTEIN ORAL) Take by mouth. - cyanocobalamin (VITAMIN B-12) 1,000 mcg tab Take 1,000 mcg by mouth once daily. Meds Comments as of 04/27/2013: Patient taking no meds Problem List As Of Date 03/27/2023 Noted Resolved Breast Cancer [C50.919] 11/08/2009 Malignant neoplasm of female breast (HCC) [C50.*11/27/2009 Osteopenia [M85.80] 06/25/2017 SVT (supraventricular tachycardia) (HCC) [I47.1]04/26/2020 Encounter Status:Closed by ROSELINE RED on 03/27/23 Normal [facility] XR ANKLE RT MIN 3 VIEWSon XR ANKLE RT MIN 3 VIEWS EXAM: XR ANKLE RT MIN 3 VIEWS 05/26/2022. FINDINGS: Frontal, oblique and lateral views for 3 views of the right ankle were obtained. HISTORY: Arthralgia of the ankle and/or foot. COMPARISON: None. IMPRESSION: 1. The osseous alignment is intact. No acute fracture or dislocation. 2. Plantar calcaneal enthesophyte is noted. 3. Joint spaces are relatively well-maintained. 4. There is no radiopaque foreign body. Electronically authenticated by: [facility] Date: 2022-05-27 17:00 Normal [facility] FREE T4on 05-26-2022 Free T4 [Mass/Vol] 0.91 ng/dL Normal 0.76-1.46 [facility] Comment on above: Performed By: #### F T4 #### [facility] [address] [place] [address] Dr. Magalys Byrnes LIPID PROFILEon 05-26-2022 CHOL-HDL RATIO NORM SEE BELOW Normal [facility] Comment on above: Result Comment: 3.3 - 4.4 LOW RISK 4.4 - 7.1 AVERAGE RISK 7.1 - 11.0 MODERATE RISK >11.0 HIGH RISK Performed By: #### L IPID, CMP, TSH #### [facility] [address] [address] [address] Magalys Byrnes Cholesterol [Mass/Vol] 219 mg/dL Critically high <=200 [facility] Comment on above: Performed By: #### L IPID, CMP, TSH #### [facility] [address] [address] [address] Magalys Byrnes Cholesterol in HDL [Mass/Vol] 71 mg/dL Critically high 40-60 [facility] Comment on above: Performed By: #### L IPID, CMP, TSH #### [facility] [address] [place] [address] Dr. Magalys Byrnes Cholesterol in LDL [Mass/Vol] 118.4 mg/dL Normal [facility] Comment on above: Performed By: #### L IPID, CMP, TSH #### [facility] [address] [place] [address] Dr. Magalys Byrnes Cholesterol.total/C holesterol in HDL [Mass ratio] 3.1 {ratio} Normal [facility] Comment on above: Performed By: #### L IPID, CMP, TSH #### [facility] [address] [place] [address] Dr. Magalys Byrnes HDL NORMAL > or = 60 mg/dl - LO W CARDIOVASCULAR RISK <40 mg/dl - HIGH CARDIOVASCULAR RISK Normal [facility] Comment on above: Performed By: #### L IPID, CMP, TSH #### [facility] [address] [place] [address] Dr. Magalys Byrnes LDL CALC NORMAL SEE BELOW Normal [facility] Comment on above: Result Comment: <100 mg/dl OPTIMAL 100 - 129 mg/dl NEAR OR ABOVE OPTIMAL 130 - 159 mg/dl BORDERLINE HIGH 160 - 189 mg/dl HIGH >190 mg/dl VERY HIGH Performed By: #### L IPID, CMP, TSH #### [facility] [address] [address] [address] Magalys Byrnes Triglyceride [Mass/Vol] 148 mg/dL Normal <=150 [facility] Comment on above: Performed By: #### L IPID, CMP, TSH #### [facility] [address] [address] [address] Magalys Byrnes VLDL CALC 29.6 mg/dL Normal [facility] Comment on above: Performed By: #### L IPID, CMP, TSH #### [facility] [address] [address] [address] Magalys Byrnes PROF 14(COMP METB)on 022 Albumin [Mass/Vol] 4.2 g/dL Normal 3.4-5.0 [facility] Comment on above: Performed By: #### L IPID, CMP, TSH #### [facility] [address] [place] [address] Dr. Magalys Byrnes Albumin/Globulin [Mass ratio] 1.3 {ratio} Normal [facility] Comment on above: Performed By: #### L IPID, CMP, TSH #### [facility] [address] [place] [address] Dr. Magalys Byrnes ALP [Catalytic activity/Vol] 72 U/L Normal 46-116 [facility] Comment on above: Performed By: #### L IPID, CMP, TSH #### [facility] [address] [place] [address] Dr. Magalys Byrnes ALT [Catalytic activity/Vol] 22 U/L Normal 14-59 [facility] Comment on above: Performed By: #### L IPID, CMP, TSH #### [facility] [address] [place] [address] Dr. Magalys Byrnes Anion gap [Moles/Vol] 10.7 mmol/L Normal [facility] Comment on above: Performed By: #### L IPID, CMP, TSH #### [facility] [address] [place] [address] Dr. Magalys Byrnes AST [Catalytic activity/Vol] 13 U/L Critically low 15-37 [facility] Comment on above: Performed By: #### L IPID, CMP, TSH #### [facility] [address] [address] [address] Magalys Byrnes Bilirubin [Mass/Vol] 0.4 mg/dL Normal 0.2-1.0 [facility] Comment on above: Performed By: #### L IPID, CMP, TSH #### [facility] [address] [address] [address] Magalys Byrnes Calcium [Mass/Vol] 9.2 mg/dL Normal 8.5-10.1 [facility] Comment on above: Performed By: #### L IPID, CMP, TSH #### [facility] [address] [address] [address] Magalys Byrnes Chloride [Moles/Vol] 105 mmol/L Normal 98-107 [facility] Comment on above: Performed By: #### L IPID, CMP, TSH #### [facility] [address] [place] [address] Dr. Magalys Byrnes CO2 [Moles/Vol] 30.2 mmol/L Normal 21.0-32.0 [facility] Comment on above: Performed By: #### L IPID, CMP, TSH #### [facility] [address] [place] [address] Dr. Magalys Byrnes Creatinine [Mass/Vol] 0.73 mg/dL Normal 0.55-1.02 [facility] Comment on above: Performed By: #### L IPID, CMP, TSH #### [facility] [address] [place] [address] Dr. Magalys Byrnes EGFR-AF HAITIAN >60 Normal >=60 [facility] Comment on above: Performed By: #### L IPID, CMP, TSH #### [facility] [address] [place] [address] Dr. Magalys Byrnes EGFR-NON AF HAITIAN >60 Normal >=60 [facility] Comment on above: Performed By: #### L IPID, CMP, TSH #### [facility] [address] [place] [address] Dr. Magalys Byrnes Globulin (S) [Mass/Vol] 3.3 g/dL Normal [facility] Comment on above: Performed By: #### L IPID, CMP, TSH #### [facility] [address] [place] [address] Dr. Magalys Byrnes Glucose [Mass/Vol] 103 mg/dL Normal 74-106 [facility] Comment on above: Performed By: #### L IPID, CMP, TSH #### [facility] [address] [place] [address] Dr. Magalys Byrnes Potassium [Moles/Vol] 3.9 mmol/L Normal 3.5-5.1 [facility] Comment on above: Performed By: #### L IPID, CMP, TSH #### [facility] [address] [place] [address] Dr. Magalys Byrnes Protein [Mass/Vol] 7.5 g/dL Normal 6.4-8.2 [facility] Comment on above: Performed By: #### L IPID, CMP, TSH #### [facility] [address] [place] [address] Dr. Magalys Byrnes Sodium [Moles/Vol] 142 mmol/L Normal 136-145 [facility] Comment on above: Performed By: #### L IPID, CMP, TSH #### [facility] [address] [place] [address] Dr. Magalys Byrnes Urea nitrogen [Mass/Vol] 12.0 mg/dL Normal 7.0-18.0 [facility] Comment on above: Performed By: #### L IPID, CMP, TSH #### [facility] [address] [place] [address] Dr. Magalys Byrnes Urea nitrogen/Creatinine [Mass ratio] 16.4 mg/mg Normal [facility] Comment on above: Performed By: #### L IPID, CMP, TSH #### [facility] [address] [place] [address] Dr. Magalys Byrnes TSHon 05-26-2022 TSH 1.007 uIU/mL Normal 0.358-3.740 [facility] Comment on above: Performed By: #### L IPID, CMP, TSH #### [facility] [address] [place] [address] Dr. Magalys Byrnes CULTURE URINEon 03-21-2022 CULTURE URINE Isolate 1 Escherichia coli >100,000 cfu/mL of ORGANISM 1 Escherichia coli ANTIBIOTIC M.I.C RX STATUS Ampicillin >=32 R F Ampicillin/Sulbactam 4 S F Piperacillin/Tazobact am <=4 S F Cefazolin <=4 S F Ceftazidime <=1 S F Ceftriaxone <=1 S F Ertapenem <=0.5 S F Imipenem <=0.25 S F Amikacin <=2 S F Gentamicin <=1 S F Tobramycin <=1 S F Ciprofloxacin <=0.25 S F Levofloxacin <=0.12 S F Nitrofurantoin <=16 S F Trimethoprim/Sulfamet hoxazole <=20 S F Normal [facility] Comment on above: Performed By: #### U RCX #### [facility] [address] [place] [address] Dr. Magalys Byrnes MG MAMM SCREEN 3D ALISHA CADon 03-13-2022 MG MAMM SCREEN 3D ALISHA CAD Patient: SILVANA HUMPHREY Exam Date: 03/13/2022 : 1955 Gender:F Ordering : KAI CARPENTER Admission #: [id number] Family : DR RUBINA RAMIREZ M.D. Order #: [id number] CLICK HERE TO VIEW EXAM RADIOLOGY REPORT PROCEDURE: MAMMOGRAM SCREENING 3D BILATERAL CAD COMPARISON: MG MAMM SCREEN ALISHA W CAD, 02/26/2020. MG MAMM SCREEN 3D ALISHA CAD, 03/02/2021. INDICATIONS: Screening mammography Calculator Name NCI Breast Cancer Risk Assessment Tool 5 Year Breast Cancer Risk n/a% Lifetime Breast Cancer Risk n/a% Personal Breast Cancer Yes, Right intraductal breast cancer age 55 Personal Ovarian Cancer No Treatments Lumpectomy, Tamoxifen, Radiation Family Cancers None LOCATION: [facility] BREAST COMPOSITION: Heterogeneously dense,which may obscure small masses. FINDINGS: DIAGNOSTIC CATEGORY 2--BENIGN FINDING. NO CHANGE FROM COMPARISON. Scattered benign-appearing nodules are present. Scattered benign-appearing calcifications are present. Scattered benign-appearing lymph nodes are present. RIGHT BREAST: No significant suspicious finding. Micro clip markers in the axillary tail. Linear scar marker LEFT BREAST: No significant suspicious finding. Linear scar markers RECOMMENDATIONS: ROUTINE MAMMOGRAM AND CLINICAL EVALUATION IN 12 MONTHS. PLEASE NOTE: A NORMAL MAMMOGRAM DOES NOT EXCLUDE THE POSSIBILITY OF BREAST CANCER. A CLINICALLY SUSPICIOUS PALPABLE LUMP SHOULD BE BIOPSIED. Dictated by: Rohit Page MD on 03/13/2022 at 13:40 Approved by: Rohit Page MD on 03/13/2022 at 13:44 Normal [facility] COVID-19 Antigenon 1 COVID-19 Antigen Healthcare Worker?: N Kaylah Reference Kaylah Reference Negative SARS-CoV+SARS-CoV-2 (COVID-19) Ag [Presence] in Respiratory specimen by Rapid immunoassay Negative for SARS Antigen by [facility] COVID19 Blank Space Kaylah Disclaimer Negative results, from patients with symptom Kaylah Disclaimer onset beyond five days, should be treated as Kaylah Disclaimer presumptive and confirmation with a molecular Kaylah Disclaimer assay, if necessary, for patient management, Kaylah Disclaimer may be performed. Negative results do not rule Kaylah Disclaimer out COVID-19 and should not be used as the sole Kaylah Disclaimer basis for treatment or patient management Kaylah Disclaimer decisions, including infection control decisions. Kaylah Disclaimer Negative results should be considered in the Kaylah Disclaimer context of a patient's recent exposures, history Kaylah Disclaimer and the presence of clinical signs and symptoms Kaylah Disclaimer consistent with COVID-19. COVID19 Blank Space Kaylah Disclaimer The Kaylah SARS Antigen [facility] does not differentiate Kaylah Disclaimer between SARS-CoV and SARS-CoV-2. COVID19 Blank Space Kaylah Disclaimer This test was developed and its performance Kaylah Disclaimer characteristic determined by [employer] and Kaylah Disclaimer validated at [facility]. This Kaylah Disclaimer test has not been FDA cleared or approved. This Kaylah Disclaimer test has been authorized by FDA under an Emergency Use Kaylah Disclaimer Authorization (EUA). This test has been validated Kaylah Disclaimer in accordance with the FDA's Guidance Document (Policy Kaylah Disclaimer for Diagnostics Testing in Laboratories Certified to Kaylah Disclaimer Perform High Complexity Testing under CLIA prior to Kaylah Disclaimer Emergency Use Authorization for Coronavirus Kaylah Disclaimer is during the Public Health Emergency) Kaylah Disclaimer issued on December 24, 2019. This test is only authorized Kaylah Disclaimer for the duration of time the declaration that Kaylah Disclaimer circumstances exist justifying the authorization of Kaylah Disclaimer the emergency use of in vitro diagnostic tests for Kaylah Disclaimer detection of SARS-CoV-2 virus and/or diagnosis of Kaylah Disclaimer COVID-19 infection under section 564(b)(1) of the [place] Disclaimer Act, 21 U.S.C. 360bbb-3(b)(1), unless the [place] Disclaimer authorization is terminated or revoked sooner. PERFORMED BY: [place] [address] PATHOLOGIST EXECUTIVE VICE PRESIDENT AND CHIEF OPERATING OFFICER TONO JONES M.D. Normal [facility] Comment on above: Performed By: #### C OVID-19 KAYLAH, SOFIANEG #### [facility] [address] [id number] [facility] [place] Ag Negativeon 05-26-20 21 [place] Ag Negative Negative Normal Negative [facility] Comment on above: Result Comment: This is a duplicate [place] SARS Antigen (GROVER) result to be used for statistical tracking purpose only. PERFORMED BY: [facility] [address] [place] [address] PATHOLOGIST EXECUTIVE VICE PRESIDENT AND CHIEF OPERATING OFFICER TONO JONES M.D. Performed By: #### C OVID-19 KAYLAH, SOFIANEG #### [facility] [address] Vital Signs Date Time Vital Sign Value Performing Clinician Facility 01-14-2023 10:30-0400 Body height 162.56 cm Rubina Ramirez Other [facility] Other 01-14-2023 10:30-0400 Body mass index (BMI) [Ratio] 23 kg/m2 Rubina Ramirez Other [facility] Other 01-14-2023 10:30-0400 Body weight 60.78 kg Rubina Ramirez Other [facility] Other 01-14-2023 10:30-0400 Diastolic blood pressure 68 mm[Hg] Rubina Ramirez Other [facility] Other 01-14-2023 10:30-0400 SaO2% (BldA) [Mass fraction] 98 % Rubina Ramirez Other [facility] Other 01-14-2023 10:30-0400 Systolic blood pressure 100 mm[Hg] Rubina Ramirez Other [facility] Other 03-20-2022 15:26-0400 Body height 165.1 cm Kai Carpenter MD Work Phone: [facility] 03-20-2022 15:26-0400 Body temperature 97.3 [degF] Kai Carpenter MD Work Phone: [facility] 03-20-2022 15:26-0400 Body weight 62.6 kg Kai Carpenter MD Work Phone: [facility] 03-20-2022 15:26-0400 Diastolic blood pressure 66 mm[Hg] Kai Carpenter MD Work Phone: [facility] 03-20-2022 15:26-0400 Heart rate 76 /min Kai Carpenter MD Work Phone: [facility] 03-20-2022 15:26-0400 Respiratory rate 16 /min Kai Carpetner MD Work Phone: [facility] 03-20-2022 15:26-0400 SaO2% (BldA) [Mass fraction] 98 % Kai Carpenter MD Work Phone: [facility] 03-20-2022 15:26-0400 Systolic blood pressure 117 mm[Hg] Kai Carpenter MD Work Phone: [facility] Encounters Encounter Date Encounter Type Care Provider Facility Start: 02-27-2024 End: 02-27-2024 ambulatory IZABELA PADILLA Not Available Start: 07-26-2023 End: 07-26-2023 ambulatory Leif Carias Other [facility] Other Start: 07-26-2023 Telephone encounter Leif Carias [facility] Start: 05-22-2023 Telephone encounter Kai avendano MD Work Phone: [facility] Comment on above: Orders Start: 05-21-2023 End: 05-21-2023 ambulatory SELF Facility:[facility] Start: 03-27-2023 Telephone encounter Roseline Valerio Hematology/Oncology Comment on above: Results Start: 01-18-2023 End: 01-18-2023 ambulatory Rubina Ramirez Other [facility] Other Start: 01-18-2023 Telephone encounter Rubina Ramirez [facility] Start: 01-14-2023 End: 01-14-2023 ambulatory Rubina Ramirez Other [facility] Other Start: 01-14-2023 Office outpatient vi sit 15 minutes Rubina Ramirez [facility] Start: 05-26-2022 End: 05-27-[address] RUBINA RAMIREZ Facility: Start: 05-25-2022 Gynecological examin ation normal Leif Carias Other [facility] Other Start: 03-20-2022 End: 03-20-2022 ambulatory Kai Carpenter MD Work Phone: Hematology/Oncology Comment on above: Malignant neoplasm o f lower-inner quadrant of right breast of female, estrogen receptor positive (HCC) (Primary Dx); Encounter for screening for malignant neoplasm of breast, unspecified screening modality Start: 03-20-2022 End: 03-20-2022 Patient encounter procedure Kai Carpenter MD Work Phone: [facility] Start: 03-19-2022 End: 03-19-[address] RUBINA RAMIREZ Facility:[facility] Start: 03-13-2022 End: 03-14-2022 ambulatory KAI CARPENTER Facility:[facility] Start: 05-31-2021 [facility] Procedures Date Procedure Procedure Detail Performing Clinician Start: 03-21-2021 Adult depression scr eening assessment Kai Carpenter MD Work Phone: Start: 01-21-2017 General examination of patient Leif Carias Other Start: 08-08-2009 Mammography Kai avendano MD Work Phone: Depression screening [place] Carias Other Plan of Treatment Date Care Activity Detail Author Start: 05-21-2026 DIABETES SCREEN DIABETES SCREEN [facility] Start: 03-22-2024 End: 06-21-2024 NORIS SCREENING W MARY LOU NORIS SCREENING W MARY [facility]OU Radiology Routine Encounter for screening mammogram for malignant neoplasm of breast Expected: 03/22/2024 (Approximate), Expires: 06/21/2024 [facility] Work Phone: Comment on above: Expected: 03/22/2024 (Approximate), Expires: 06/21/2024 Start: 05-24-2023 Influenza vaccination INFLUENZA (#1) [facility] Start: 03-23-2023 DIABETES SCREEN DIABETES SCREEN [facility] Start: 03-20-2023 End: 04-19-2023 NORIS SCREENING W MARY LOU NORIS SCREENING W MARY LOU Radiology Routine Encounter for screening for malignant neoplasm of breast, unspecified screening modality Expected: 03/20/2023, Expires: 04/19/2023 [facility] Work Phone: Comment on above: Expected: 03/20/2023 , Expires: 04/19/2023 Start: 09-23-2022 ADVANCE DIRECTIVE DISCUSSION ADVANCE DIRECTIVE DISCUSSION [facility] Start: 09-23-2022 DEPRESSION ASSESSMENT DEPRESSION ASS ESSMENT [facility] Start: 05-24-2022 Influenza vaccination INFLUENZ A (Season Ended) [facility] Start: 03-21-2022 Adult depression screening assessment DEPRESSION SCREENING [facility] Start: 09-23-2021 ADVANCE DIRECTIVE DISCUSSION ADVANCE DIRECTIVE DISCUSSION [facility] Start: 2019 BONE DENSITY BONE DENSITY [facility] Start: 2019 PNEUMOCOCCAL: 65+ (2 - PPSV23 if available, else PCV20) PNEUMOCOCCAL: 65+ (2 - PPSV23 if available, else PCV20) [facility] Start: 2019 PNEUMOCOCCAL: 65+ (2 - PPSV23 or PCV20) PNEUMOCOCCAL: 65+ (2 - PPSV23 or PCV20) [facility] Start: 11-02-2015 SHINGRIX VACCINE (2 of 3) SHINGRIX VACCINE (2 of 3) [facility] Start: 08-08-2010 Mammography MAMMOGRAM [facility] Start: 1999 COLOGUARD (FIT-DNA) COLOGUARD (FIT-D NA) [facility] Start: 1999 Colonoscopy COLONOSCOPY [facility] Start: 1999 COLORECTAL CANCER SCREENING COLORECTAL CANCER SCREENING [facility] Start: [address] COLONOGRAPHY [facility] Start: 1999 FECAL OCCULT BLOOD FECAL OCCULT BLOO D [facility] Start: 1999 LIPID SCREEN LIPID SCREEN [facility] Start: 1999 SIGMOIDOSCOPY SIGMOIDOSCOPY [facility] Start: 1973 Urine microalbumin profile DTAP,TDAP,TD (1 - Tdap) [facility] Start: 1972 HEPATITIS C SCREENING HEPATITIS C SC REENING [facility] Start: 1959 COVID-19 VACCINE (#1) COVID-19 VACCI NE (#1) [facility] Start: 1955 COVID-19 VACCINE (#1) COVID-19 VACCI NE (#1) [facility] Immunizations Immunization Date Immunization Notes Care Provider Rosaura scott 08-07-2018 influenza, injectabl e, quadrivalent, preservative free Kai Carpenter MD Work Phone: [facility] 09-07-2015 influenza virus vaccine, split virus (incl. purified surface antigen) Leif Carias Other [facility] Other 09-07-2015 influenza, seasonal, injectable, preservative free Kai Carpenter MD Work Phone: [facility] 09-07-2015 pneumococcal conjuga te vaccine, 13 valent Kai Carpenter MD Work Phone: [facility] 09-07-2015 zoster vaccine, live Kai vasquez MD Work Phone: [facility] Payers Date Payer Category Payer Medicare AETNA MEDICARE A ETNA MEDICARE PPO [id number] 2019-Present [phone] [address] [place] [address] PPO [id number] 2019 Medicare AETNA MEDICARE A ETNA MEDICARE PPO [id number] 2019-Present [phone] [address] [place] [address] PPO [id number] 1959 Medicare [id number] 1959 Medicare [id number] 1955 Unknown [id number] 1954 Unknown [id number] 1954 Unknown [id number] 1954 Unknown [id number] 1954 Unknown [id number] Social History Date Type Detail Facility Start: 04-27-2013 Tobacco smoking stat us GAIS Never smoked tobacco [facility] Start: 03-20-2022 Alcohol intake Current drinke r of alcohol (finding) [facility] Start: 03-20-2022 End: 05-21-2023 Alcohol intake [facility] Start: 1955 Sex Assigned At Not on file [facility] Start: 03-10-2022 End: 03-20-2022 Exposure to SARS-CoV-2 (event) Not sure [facility] Start: 03-20-2022 End: 05-21-2023 Sex Assigned At [facility] Start: 04-27-2013 Tobacco use and exposure Smoke less tobacco non-user [facility] Adult Depression Scr eening Assessment 0 [facility] Clinical Notes 03-20-2022 to 05-23-2023 Telephone Encounter - Jennifer Power - 05/23/2023 10:55 AM EDTTelephone Encounter - Kai Carpenter MD - 05/23/2023 8:42 AM EDTTelephone Encounter - Jennifer Power - 05/22/2023 9:07 AM EDT Note Date & Type Note Facility 05-23-2023 Miscellaneous Notes Faxed order to [facility]. Jennifer Power Order placed Patient states she should have a Mammogram ordered before her next appointment and you will typically order that for her. If in agreement, Can you please order Mammogram? Thanks! Jennifer Power documented in this encounter [facility] 05-21-2023 Note HNO ID: [id number] Author: Kai Carpenter MD Service: ? Author Type: Physician Type: Progress Notes Filed: 05/21/2023 3:38 PM Note Text: Patient: Silvana Humphrey Location: [facility] : 1955 Attending Physician: Dr.Kasra Carpenter Date: May 21, 2023 Note Type: Progress Note Chief Complaint: Breast cancer. HPI: Ms. Humphrey is a 68-year-old woman with a history of right breast cancer 07/2009 : abnormality seen on screening mammogram, biopsy recommended 08/2010 : completes biopsy, notes intraductal carcinoma- [facility] review notes invasive ductal carcinoma and DCIS 09/2009 : MRI breast completed and follow up with Dr. 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 Pineda and Dr. Ward : therapy held during evaluation 04/2013 : estradiol in post-menopausal range- started anastrazole 05/2014 : repeat estradiol level was 30, restarted tamoxifen 08/2014 : repeat testing notes post-menopausal levels of estradiol and starts aromasin 04/2018 : patient notes continued symptoms of dyspareunia, joint aches and worsening hot flashes, stops aromasin and declines further hormonal therapy 02/2021: Mammogram Dexa Scan 05/2021: Screening colonoscopy: negative Patient returns in follow up today. Previously followed by Dr. Lieberman. She feels well wxcept for Hives which she is seeing an electrician's helper and they feel that it may be an autoimmune disease Past Medical History: Breast cancer as above, benign breast lesions as above, and seasonal allergies. REVIEW OF SYSTEMS: CONSTITUTIONAL: Patient is currently in her baseline state health, no fevers chills or sweats, no current hot flashes CARDIOVASCULAR: No chest pain, dyspnea, palpitations, orthopnea, PND, ankle edema. PULM: No dyspnea, unexplained cough. Has not been wheezing recently GI: No dysphagia/odynophagia, problematic reflux, constipation, diarrhea, changes in stool habits, hematochezia, melena. Last colonoscopy 2009. :denies vaginal bleeding, denies pain with intercourse NEURO: Denies issues with neuropathy or focal muscle deficits MUSC-SKEL: Joint discomfort resolved INTEGUMENTARY: No bruising rash or jaundice END: No current hot flashes Breast: Denies changes on self breast examination Current Outpatient Medications Medication Sig Dispense Refill cetirizine HCl (ZYRTEC) 10 mg chewable tablet Take 20 mg by mouth. EPINEPHrine (EPIPEN 2-MORIS) 0.3 mg/0.3 mL auto-injector famotidine (PEPCID) 20 mg tablet Take 1 tablet by mouth every 12 hours. hydrOXYzine HCl (ATARAX) 25 mg tablet TAKE 1 - 2 TABLETS BY MOUTH EVERYDAY AT BEDTIME montelukast (SINGULAIR) 10 mg tablet Take 1 tablet by mouth every afternoon. predniSONE (DELTASONE) 50 mg TAKE 1 TABLET BY MOUTH ONCE DAILY AT ONSET OF SWELLING OR HIVES rosuvastatin (CRESTOR) 10 mg tablet Take 10 mg by mouth once daily. SYNTHROID 75 mcg tablet Take 75 mcg by mouth once daily. VIT C/MAISHA AC/LUT/COPPER/ZNOX (PRESERVISION LUTEIN ORAL) Take by mouth. sulfamethoxazole-trimethoprim (BACTRIM DS,SEPTRA DS) 800-160 mg per tablet Cholecalciferol, Vitamin D3, 1,000 unit cap Take 1,000 Units by mouth once daily. fluticasone (FLONASE) 50 mcg/actuation nasal spray Use 1 [place] in each nostril once daily. cyanocobalamin (VITAMIN B-12) 1,000 mcg tab Take 1,000 mcg by mouth once daily. No current facility-administered medications for this visit. Allergies: No known drug allergies. Review Of Systems: BP 103/69 Pulse 76 Temp (Src) 98.2 (Oral) Resp 18 Ht 5' 5 (1.65m) Wt 137 lb 3.2 oz (62.2kg) SpO2 100% BMI 22.83 kg/(m2). PHYSICAL EXAMINATION General: Alert and oriented, no distress, pleasant and cooperative. Heart: Regular, normal S1 and S2, no murmurs, rubs, or gallops Lungs: Clear to auscultation bilaterally no crackles or wheezes Abdomen: NT, ND no organomegaly Extremities: Feet/ankles without edema, posterior tibial pulses full and symmetrical Breast: No palpable nodules or other worrisome findings in either breast Lymph: no cervical, supraclavicular or axillary adenopathy Skin: no sores or other lesions, no bruising Msk: no joint swelling or tender areas. Breast: no masses bilaterall and no axillary fullness RADIOLOGY: 02/2023 Mammogram: 01/2017 DEXA PATHOLOGY [facility], [place]; [id number] (09/21/2009): Right breast, 4 o'clock, lumpectomy (1-7 and immunohistochemical stains with controls) - Invasive tubular carcinoma, Black-Damon grade I (see comment) (more content not included)... [facility] 03-27-2023 Miscellaneous Notes Pt aware of negative mammogram results from [facility]. Roseline Red RN documented in this encounter [facility] 01-18-2023 Evaluation note Encounter Date Diagnosis Assessment Notes Dec, Hives (ICD-10 - L50.9) [facility] Other 04-24-2023 Evaluation note* Encounter Date Diagnosis Assessment Notes Treatment Notes Treatment Clinical Notes Dec, Seasonal allergic rhinitis, unspecified trigger (ICD-10 - J30.2) Already taking Zyrtec and Benadryl. Suggested adding H2 chika. Patient agrees to Kenalog injection. Patient will call if problem continues for electrician's helper referral [facility] Other 06-28-2022 History of Present illness Narrative* Kai Carpenter MD - 03/20/2022 3:47 PM EDT Images from the original note were not included. Patient: Silvana Humphrey Location: [facility] : 1955 Attending Physician: Dr.Kasra Carpenter Date: 03/20/2022 Note Type: Progress Note Chief Complaint: Breast cancer. HPI: Ms. Humphrey is a 66-year-old woman with a history of right breast cancer 07/2009 : abnormality seen on screening mammogram, biopsy recommended 08/2010 : completes biopsy, notes intraductal carcinoma- [facility] review notes invasive ductal carcinomaand DCIS 09/2009 : MRI breast completed and follow up with Dr. 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 Pineda and Dr. Ward : therapy held during evaluation 04/2013 : estradiol in post-menopausal range- started anastrazole 05/2014 : repeat estradiol level was 30, restarted tamoxifen 08/2014 : repeat testing notes post-menopausal levels of estradiol and starts aromasin 04/2018 : patient notes continued symptoms of dyspareunia, joint aches and worsening hot flashes, stops aromasin and declines further hormonal therapy 02/2021: Mammogram Dexa Scan 05/2021: Screening colonoscopy: negative Patient returns in follow up today. Previously followed by Dr. Lieberman. Doing well, mammogram last week and on abx for UTI Past Medical History: Breast cancer as above, benign breast lesions as above, and seasonal allergies. REVIEW OF SYSTEMS: CONSTITUTIONAL: Patient is currently in her baseline state health, no fevers chills or sweats, no current hot flashes CARDIOVASCULAR: No chest pain, dyspnea, palpitations, orthopnea, PND, ankle edema. PULM: No dyspnea, unexplained cough. Has not been wheezing recently GI: No dysphagia/odynophagia, problematic reflux, constipation, diarrhea, changes in stool habits, hematochezia, melena. Last colonoscopy 2009. :denies vaginal bleeding, denies pain with intercourse NEURO: Denies issues with neuropathy or focal muscle deficits MUSC-SKEL: Joint discomfort resolved INTEGUMENTARY: No bruising rash or jaundice END: No current hot flashes Breast: Denies changes on self breast examination Current Outpatient Medications Medication Sig Dispense Refill sulfamethoxazole-trimethoprim (BACTRIM DS,SEPTRA DS) 800-160 mg per tablet rosuvastatin (CRESTOR) 10 mg tablet Take 10 mg by mouth once daily. SYNTHROID 75 mcg tablet Take 75 mcg by mouth once daily. Cholecalciferol, Vitamin D3, 1,000 unit cap Take 1,000 Units by mouth once daily. fluticasone (FLONASE) 50 mcg/actuation nasal spray Use 1 [place] in each nostril once daily. OMEPRAZOLE MAGNESIUM (PRILOSEC OTC ORAL) Take 1 tablet by mouth as needed. VIT C/MAISHA AC/LUT/COPPER/ZNOX (PRESERVISION LUTEIN ORAL) Take by mouth. cyanocobalamin (VITAMIN B-12) 1,000 mcg tab Take 1,000 mcg by mouth once daily. No current facility-administered medications for this visit. Allergies: No known drug allergies. Review Of Systems: BP 103/69 Pulse 76 Temp (Src) 98.2 (Oral) Resp 18 Ht 5' 5 (1.65m) Wt 137 lb 3.2 oz (62.2kg) SpO2 100% BMI 22.83 kg/(m^2). PHYSICAL EXAMINATION General: Alert and oriented, no distress, pleasant and cooperative. Heart: Regular, normal S1 and S2, no murmurs, rubs, or gallops Lungs: Clear to auscultation bilaterally no crackles or wheezes Abdomen: NT, ND no organomegaly Extremities: Feet/ankles without edema, posterior tibial pulses full and symmetrical Breast: No palpable nodules or other worrisome findings in either breast Lymph: no cervical, supraclavicular or axillary adenopathy Skin: no sores or other lesions, no bruising Msk: no joint swelling or tender areas. RADIOLOGY: 02/2021 Mammogram: 01/2017 DEXA PATHOLOGY [facility], [place]; [id number] (09/21/2009): Right breast, 4 o'clock, lumpectomy (1-7 and immunohistochemical stains with controls) - Invasive tubular carcinoma, Black-Damon grade I (see comment). - Ductal carcinoma in situ, intermediate grade, cribriform and micropapillary types with focal necrosis, microcalcifications, and involvement of lobules. - Microcalcifications also present within unremarkable breast lobules. EDK/sld 10/12/2009 Impression: This is a 66-year-old woman with a history of right breast cancer. Had stage 1 right breast cancer-ER/MO (+), HER2(-). Had 3 years of adjuvant tamoxifen, a year of arimidex interrupted by concern for return of pre-menopausal state, the completed almost four years of adjuvant aromasin concluding in06/2018. Given reported symptoms and overall duration of adjuvant treatment, patient deferred further adjuvant hormonal therapy after 04/2018 and QOL has dramatically improved. At that point patient was under Dr. Lieberman's care. Plan: History of right Breast Cancer-no clinical evidence of recurrence -continue observation -repeat mammogram February 2023, 2021 mammogram report -see back in 1 year. continue Vit D Kai Carpenter MD I spent a total of 25 minutes on the date of the service which included preparing to see the patient, [id number] patient care, completing clinical documentation, obtaining and/or reviewing separately obtained history, performing a medically appropriate examination, counseling and educating the pat ient/family/caregiver and ordering medications, tests, or procedures. CC: [facility] Diagnosis Malignant neoplasm of lower-inner quadrant of right breast of female, estrogen receptor positive (HCC)- Primary Encounter for screening for malignant neoplasm of breast, unspecified screening modality documented in this encounter [facility] note* Diagnosis Encounter for screening mammogram for malignant neoplasm of breast- Primary Other screening mammogram documented in this encounter [facility] noteNo [employer] Other History general Narrative - Reported* Type Description Date Surgical History Problem Title : No previous reji brennen, Problem Status : Active, Surgical History Problem Title : past surgical history reviewed, Problem Description : past surgical history reviewed, Problem Comment : reviewed - no changes required, Problem Status : Active, Surgical History Problem Title : surg ical procedures, hx of, Problem Description : surgical procedures, hx of, Problem Comment : Right Lumpectomy 2009 Parathyroidectomy 01/2015 Tonsillectomy , Problem Status : Active, Surgical History Problem Title : surg ical procedures, hx of, Problem Description : surgical procedures, hx of, Problem Comment : Right Lumpectomy 2009 Parathyroidectomy 01/2015, Problem Status : Active, Surgical History Problem Title : surg ical procedures, hx of, Problem Description : surgical procedures, hx of, Problem Comment : Right Lumpectomy 2008, Problem Status : Active, [facility] Other Reason for referral (narrative)* Diagnostic Procedure Only (Routine) - Pending Review Specialty Diagnoses / Procedures Referred By Shasha mclain Referred To Contact [facility] Diagnoses Encounter for screening for malignant neoplasm of breast, unspecified screening modality Procedures NORIS SCREENING W MARY LOU SCREENING DIGITAL BREAST TOMOSYNTHESIS BI SCREENING MAMMOGRAPHY BI 2-VIEW BREAST INC CAD Kai Carpenter MD [address] [place] [id number] [facility] [address] [place] [id number] Referral ID Status Reason Start Date Expiration Date Visits Requested Visits Authorized [id number] Pending Review Auto-Generat ed Referral 03/20/2023 04/19/2023 1 1 [facility] for referral (narrative)* Reason *FU 01/28 Last OV Diagnosis 1 Hives (L50.9) Referral Organization [facility] kaia Referring Provider First Name Rubina Referring Provider Last Name James Referring Provider Specialty Family [facility] Referred Organization [facility] Referred Provider Izabela Padilla Referred Address ,[place], [place],[address] Referred Provider Specialty Allergy/Immu nology Referral Priority Routine General Notes Dianelys Banda 08:33:21 AM >received today, attachments made, notes locked, referral faxed P2P [facility] Other Reason for referral (narrative)* Diagnostic Procedure Only (Routine) - Pending Review Specialty Diagnoses / Procedures Referred By Shasha t Referred To Contact [facility] Diagnoses Encounter for screening mammogram for malignant neoplasm of breast Procedures NORIS SCREENING W MARY LOU SCREENING DIGITAL BREAST TOMOSYNTHESIS BI SCREENING MAMMOGRAPHY BI 2-VIEW BREAST INC Kai Garrido MD [address] [place] [id number] [facility] [address] [place] [address] Referral ID Status Reason Start Date Expiration Date Visits Requested Visits Authorized [id number] Pending Review Auto-Generat ed Referral 03/22/2024 06/21/2024 1 1 [facility] Summary Purpose Family History No Family History Records FoundNo Family History Records FoundNo Family History Records FoundNo Family History Records Found Advance Directives No Advanced Directives Records FoundNo Advanced Directives Records FoundNo Advanced Directives Records FoundNo Advanced Directives Records Found Additional Source Comments INFORMATION SOURCE (unrecogn ized section and content) DATE CREATED AUTHOR 10/16/2021 [facility] DATE CREATED AUTHOR AUTHOR'S ORGANIZ ATION 05/29/2022 [facility] DATE CREATED AUTHOR AUTHOR'S ORGANIZ ATION 10/24/2023 [facility] DATE CREATED AUTHOR AUTHOR'S ORGANIZ ATION 02/28/2024 [facility] EPIC Source Comments (unrecognize d section and content) In the event this informatio n is protected by the Federal Confidentiality of Alcohol and Drug Abuse Patient Records regulations: The Federal rules restrict any use of the information to criminally investigate or prosecute any alcohol or drug abuse patient.[facility] the event this information is protected by the Federal Confidentiality of Alcohol and Drug Abuse Patient Records regulations: The Federal rules restrict any use of the information to criminally investigate or prosecute any alcohol or drug abuse patient.[facility] the event this information is protected by the Federal Confidentiality of Alcohol and Drug Abuse Patient Records regulations: The Federal rules restrict any use of the information to criminally investigate or prosecute any alcohol or drug abuse patient.[facility] Reason for Visit (unrecogniz ed section and content) Reason Comments Breast Cancer 1 year follow up Reason Comments Results Reason Comments Orders Care Teams (unrecognized sec tion and content) Mandrel Cleaner Relationship Specialty Start Date End Date Rubina Ramirez MD PCP - General Family Practice 02/03/18 Mandrel Cleaner Relationship Specialty Start Date End Date Rubina Ramirez MD PCP - General Family Medicine 02/03/18 Mandrel Cleaner Relationship Specialty Start Date End Date Rubina Ramirez MD PCP - General Family Medicine 02/03/18 FOR RECORDS PERTAINING TO PATIENTS WHO ARE OR HAVE BEEN ENROLLED IN A CHEMICAL DEPENDENCY/SUBSTANCEABUSE PROGRAM, SOME INFORMATION MAY BE OMITTED. This clinical summary was aggregated from multiple sources. Caution should be exercised in using it in the provision of clinical care. This summary normalizes information from multiple sources, and as a consequence, information in this document may materially change the coding, format and clinical context of patient data. In addition, data may be omitted in some cases. CLINICAL DECISIONS SHOULD BE BASED ON THE PRIMARY CLINICAL RECORDS. [facility], [facility]. provides no warranty or guarantee of the accuracy or completeness of information in this document.
== END 2024-05-04 08:53 | disposition home or self-care (01) ==
LOC: MAMMO 08:52
PROVIDERS: PCP Family Medicine; Visit Provider Family Medicine
DX: Z12.31 Encounter for screening mammogram for malignant neoplasm of breast (principal); Z78.0 Asymptomatic menopausal state; Z85.3 Personal history of malignant neoplasm of breast
CPT/HCPCS: 77063; 77067; 77080

== ENCOUNTER 2025-07-12 14:48 | Emergency (ER) | payer MEDICARE, SELFPAY ==
[2025-07-12 14:52] VITALS: BP 133/70; PULSE 75; TEMP 36.9; O2SAT 99; BMI 17.6
--- NOTE | 2025-07-12 15:27 | CT_ITS ---
The [address] [address] Patient Name: RIAZ HUMPHREY MRN: [facility]:[id number] date: 1955 Sex: F Assigned Patient Location: ED.MAIN Current Patient Location: ED.MAIN Accession/Order Number: [id number] Exam Date: 07/12/2025 15:22 Report Date: 07/12/2025 15:44 At the request of: BHARATHI ROSE Procedure: CT stroke head/brain wo con CT BRAIN WITHOUT CONTRAST - stroke alert: CLINICAL HISTORY: tremor COMPARISON: None TECHNIQUE: Contiguous axial unenhanced images were obtained through the brain. This CT exam was performed using one or more following dose reduction techniques: Automated exposure control, adjustment of the mA and/or kV according to patient size, or use of iterative reconstruction technique. FINDINGS: There is mild generalized atrophy. The ventricles are normal in size and position. There is minor white matter hypodensity which may be microvascular disease. There are no additional areas of abnormal attenuation. There is no hemorrhage, mass effect or extra-axial collections. There is some fluid within the visualized right maxillary sinus and potentially the left sphenoid. The remaining imaged paranasal sinuses and mastoid air cells are clear. Vertebral artery and carotid siphon plaque is visualized. CT/CT stroke head/brain wo con IMPRESSION: AGE-RELATED CHANGES. MILD SINUS DISEASE. NO DEFINITE ACUTE INTRACRANIAL ABNORMALITY. FOLLOW-UP IS RECOMMENDED, SYMPTOMS WARRANT.. Comment: Findings were discussed with Dr. Rose at 1543 hours Impression dictated by: Haley Medrano M.D. 07/12/2025 3:44 PM Dictation Location: [place] [address] Electronically authenticated by: [id number] Y Date: 07/12/2025 15:44
--- OUTSIDE RECORDS SUMMARY | 2025-07-12 15:34 | XMS_ITS | CCD ---
Author Organization [facility] Care Team Providers Care Bending Roll Operator Name Role Phone Jamie Ramirez MD Primary Care Provider DR JAMIE RAMIREZ Admitting Unavailable RAMIREZ, DR JAMIE Pena Attending Unavailable JAMES, DR JAMIE Pena Primary Care Unavailable JAMES, DR JAMIE Pena Consulting Unavailable HOWIE, CHANDLER Consulting Unavailable KARAMLOiQana, GIANA Admitting Unavailable FABIO GIANA Attending Unavailable JAMES, DR JAMIE Pena Primary Care Unavailable West, DR Jordan Consulting Unavailable KARABHILOU, GIANA Consulting Unavailable JAMES, DR JAMIE Pena Admitting Unavailable JAMES, DR JAMIE Pena Attending Unavailable JAMES, DR JAMIE Pena Primary Care Unavailable RAMIREZ, DR JAMIE Pena Consulting Unavailable ROHIT DUMONT JR Admitting Unavailable ROHIT DUMONT JR Attending Unavailable JAMES, DR JAMIE Pena Primary Care Unavailable Jamie Ramirez Unavailable Jamie Ramirez MD Primary Care Provider Leif Carias Unavailable Jamie Ramirez MD Primary Care Provider Jamie Ramirez MD Primary Care Provider [phone] IZABELA PADILLA Attending Unavailable IZABELA PADILLA Attending Unavailable Jamie Ramirez MD Primary Care Provider Madiha Valadez DOe Unavailable Marietta LOGAN, Scarlet Unavailable Marc REID, Lori Unavailable Unavailable Ben Medellin MD Unavailable [phone] Itzel Quiñonez Unavailable Unavailable JAMIE RAMIREZ Primary Care Unavailable KARUPPASAMY, KARUNAKARAVEL Attending Unava ilable KARHAWAPAFABIANA, KARUNAKARAVEL Admitting Unava ilable RAMIREZ, JAMIE E Primary Care Unavailable EARL CARDENAS Referring Unavailable RAMIREZ, JAMIE E Primary Care Unavailable EARL CARDENAS Referring Unavailable RAMIREZ, JAMIE E Primary Care Unavailable EARL CARDENAS Attending Unavailable RAMIREZ, JAMIE E Primary Care Unavailable SALUD FALCON Attending Unavailable KHORANA, BEN A Referring Unavailable RAMIREZ, JAMIE E Primary Care Unavailable KHORANA, BEN A Referring Unavailable RAMIREZ, JAMIE E Primary Care Unavailable BELGICA LANDRUM Attending Unavailable BELGICA LANDRUM Referring Unavailable RAMIREZ, JAMIE E Primary Care Unavailable KHORANA, BEN A Attending Unavailable RAMIREZ, JAMIE E Primary Care Unavailable KHORANA, BEN A Referring Unavailable RAMIREZ, JAMIE E Primary Care Unavailable NANCY HILLS Attending Unavailable EARL CARDENAS Referring Unavailable RAMIREZ, JAMIE E Primary Care Unavailable NANCY HILLS Referring Unavailable RAMIREZ, JAMIE E Primary Care Unavailable BELGICA LANDRUM Attending Unavailable DANIEL GRIJALVA Referring Unavailable RAMIREZ, JAMIE E Primary Care Unavailable EARL CARDENAS Referring Unavailable RAMIREZ, JAMIE E Primary Care Unavailable EARL CARDENAS Referring Unavailable RAMIREZ, JAMIE E Primary Care Unavailable SCARLET MCMANUS Attending Unavailable PHOENIX, DELMY Referring Unavailable RAMIREZ, JAMIE E Primary Care Unavailable EARL CARDENAS Admitting Unavailable EARL CARDENAS Attending Unavailable RAMIREZ, JAMIE E Primary Care Unavailable NAILA GEORGE Attending Unavailable SALUD FALCON Referring Unavailable RAMIREZ, JAMIE E Primary Care Unavailable KHORANA, BEN A Referring Unavailable RAMIREZ, JAMIE E Primary Care Unavailable DEMETRIUS GALLAGHER Attending Unavailable RAMIREZ, JAMIE E Primary Care Unavailable RAMIREZ, JAMIE E Primary Care Unavailable KHORANA, BEN A Referring Unavailable RAMIREZ, JAMIE E Primary Care Unavailable KHORANA, BEN A Referring Unavailable RAMIREZ, JAMIE E Primary Care Unavailable EARL CARDENAS Attending Unavailable PHOENIX, DELMY Referring Unavailable RAMIREZ, JAMIE E Primary Care Unavailable KHORANA, BEN A Attending Unavailable EARL CARDENAS Referring Unavailable RAMIREZ, JAMIE E Primary Care Unavailable THERESAJOE POSADAEL Referring Unavailable RAMIREZ, JAMIE E Primary Care Unavailable RAMIREZ, JAMIE E Primary Care Unavailable RAMIREZ, JAMIE E Primary Care Unavailable KHORANA, BEN A Referring Unavailable RAMIREZ, JAMEI E Primary Care Unavailable RAMIREZ, JAMIE E Primary Care Unavailable NANCY HILLS Attending Unavailable RAMIREZ, JAMIE E Primary Care Unavailable BELGICA LANDRUM Attending Unavailable BELGICA LANDRUM Referring Unavailable RAMIREZ, JAMIE E Primary Care Unavailable KHORANA, BEN A Referring Unavailable RAMIREZ, JAMIE E Primary Care Unavailable SALUD FALCON Attending Unavailable RAMIREZ, JAMIE E Primary Care Unavailable RAMIREZ, JAMIE E Primary Care Unavailable SALUD FALCON Attending Unavailable RAMIREZ, JAMIE E Primary Care Unavailable JOE CARDENASEL Referring Unavailable RAMIREZ, JMAIE E Primary Care Unavailable THERESA EARL Referring Unavailable RAMIREZ, JAMIE E Primary Care Unavailable BATOOL ADAME Attending Unavaila ble EARL CARDENAS Referring Unavailable RAMIREZ, JAMIE E Primary Care Unavailable EARL CARDENAS Attending Unavailable THERESA EARL Referring Unavailable RAMIREZ, JAMIE E Primary Care Unavailable KHORANA, BEN A Referring Unavailable RAMIREZ, JAMIE E Primary Care Unavailable RAMIREZ, JAMIE E Primary Care Unavailable BUNMICHAEL, NANCY Referring Unavailable RAMIREZ, JAMIE E Primary Care Unavailable Allergies Allergy Classification Reported Allergen(s) Allergy Type Date of Onset Reaction(s) Facility (20 sources) Seasonal allergy; Translations: [SEASONAL ALLERGIES] Propensity to adverse reactions 0 [facility] (1 source) patient allergy list reviewed by nurse or physicia Propensity to adverse reactions 7 Comment:Done [facility] Other (1 source) Allergies Reconciled Propensity to adverse reactions 1 Unknown [facility] Other Medications Current Medications Medication Drug Class(es) Dates Sig (Normalized) Sig (Original) amylase 71584 unt / lipase 46748 unt / protease 96552 unt oral tablet (20 sources) Start: 03-25-2025 take 1 tablet by mouth three times daily at mealtime efkjlj-luoejvmh-das lase (VIOKACE) 20,880-78,300- 78,300 unit tablet Take 1 tablet by mouth three times a day with meals. 540 tablet 04/05/2025 12:22 PM EDT 03/25/2025 Active ascorbic acid 226 mg / beta carotene 53347 unt / cuprous oxide 0.8 mg / dl-alpha tocopheryl acetate 200 unt / zinc oxide 34.8 mg oral capsule (3 sources) Vitamin C PreserVision ARE DS - as directed Orally Active bisacodyl 5 mg delayed release oral tablet (20 sources) Stimulant Laxative Start: 03-09-2025 End: 03-10-2025 Bisacodyl (DULCOLAX) 5 mg tab Use as directed for Miralax / Sports Drink Bowel Prep Kit 4 tablet 03/09/2025 03/10/2025 Active take 1 tablet by ruddy th once daily as needed for constipation bisacodyl EC (DULCOLAX, BISACODYL,) 5 mg EC tablet Take 5 mg by mouth once daily as needed for constipation. Active cetirizine hydrochloride 10 mg chewable tablet (20 sources) Histamine-1 Receptor Antagonist Start: 01-23-2023 cetirizine HCl (ZYRTEC) 10 mg chewable tablet Take 20 mg by mouth. 01/23/2023 Active Comment on above: Take 20 mg by mouth. 0.4 ml enoxaparin sodium 100 mg/ml prefilled syringe (9 sources) Low Molecular Weight Heparin Start: 03-25-2025 End: 04-24-2025 inject 0.4 mL by subcutaneous injection once daily in the evening enoxaparin (LOVENOX) 40 mg/0.4 mL Inject 0.4 mL subcutaneously once daily. 12 mL 03/25/2025 1:05 PM EDT 03/25/2025 04/24/2025 Active [id number] 0.3 ml EPINEPHrine 1 mg/ml auto-injector (5 sources) alpha-Adrenergic Agonist, beta-Adrenergic Agonist, Catecholamine Start: 01-23-2023 EpiPen 2-Moris 0.3 MG/0.3ML injection syringe as directed Injection outside of thigh prn for 1 year 01/23/2023 Active Start: 01-23-2023 End: 05-08-2024 EPINEPHrine (EPIPEN 2-MORIS) 0 .3 mg/0.3 mL auto-injector esomeprazole 20 mg delayed release oral capsule (3 sources) Proton Pump Inhibitor take 1 capsule by mouth before mealtime esomeprazole (NexIUM) [address] capsule Take 20 mg by mouth in the morning. Take before meals. Do not open capsule.. Active ferrous sulfate 325 mg oral tablet (11 sources) Start: End: take 1 tablet by mouth once daily ferrous sulfate 325 mg (65 mg iron) tablet Take 1 tablet by mouth once daily. With Vitamin C 30 tablet 03/09/2025 04/08/2025 Active glycerin 2000 mg rectal suppository (20 sources) Non-Standardized Chemical Allergen glycerin ADULT (FLEE T GLYCERIN, ADULT,) suppository 1 suppository by RECTAL route as needed for constipation. Active hydrOXYzine hydrochloride 25 mg oral tablet (5 sources) Antihistamine Start: 023 End: 024 take 1-2 tablets by mouth once daily at bedtime hydrOXYzine HCl (Atarax) 25 MG tablet Indications: Idiopathic urticaria TAKE 1 - 2 TABLETS BY MOUTH EVERYDAY AT BEDTIME 180 tablet 01/06/2024 Active Comment on above: TAKE 1 - 2 TABLETS B Y MOUTH EVERYDAY AT BEDTIME iv contrast (will be provided with radiology test) (5 sources) Start: 025 End: iv contrast (will be provided with radiology test) MRI Liver Inject, intravenously, once for 1 dose. No IV access, insert saline lock prior to the beginning of sedation, infusion, injection of imaging exam. Discontinue saline lock post exam. If Pt. has a central line or IVAD, may access for administration according to line specific nursing protocol. Once exam is complete flush line and de-access according to line specific nursing protocol in the MR contrast administration guidelines link. 1 each 02/26/2025 02/27/2025 Active Start: 02-25-2025 End: 02-26-2025 iv contrast (will be provide d with radiology test) CT Chest W -Inject, intravenously, once for 1 dose.No IV access, insert saline lock prior to the beginning of sedation, infusion, injection of imaging exam. Discontinue saline lock post exam. If Pt. has a central line or IVAD, may access for administration according to line specific nursing protocol. Once exam is complete flush line and de-access according to line specific nursing protocol in theCT contrast administration guidelines link. 1 each 02/25/2025 02/26/2025 Active Start: 02-25-2025 End: 02-26-2025 iv contrast (will be provide d with radiology test) CT ABD/PEL -Inject, intravenously, once for 1 dose.No IV access, insert saline lock prior to the beginning of sedation, infusion, injection of imaging exam. Discontinue saline lock post exam. If Pt. has a central line or IVAD, may access for administration according to line specific nursing protocol. Once exam is complete flush line and de-access according to line specific nursing protocol in the CT contrast administration guidelines link. 1 each 02/25/2025 02/26/2025 Active levothyroxine sodium 0.1 mg oral tablet (20 sources) l-Thyroxine Start: 06-01-2025 take 1 tablet by mouth once daily in the evening levothyroxine (SYNTHROID) 100 mcg tablet Take 1 tablet by mouth once daily. 30 tablet 06/01/2025 3:53 PM EDT 06/01/2025 Active Start: 05-19-2018 take 1 tablet by ruddy th once daily SYNTHROID 75 mcg tablet Take 75 mcg by mouth once daily. 05/19/2018 Active Levothyroxine So dium 75 MCG TAKE 1 TABLET BY MOUTH EVERY DAY IN THE MORNING ON EMPTY STOMACH FOR 90 DAYS for 90 days Active Comment on above: Take 75 mcg by mouth once daily. metoclopramide 10 mg oral tablet (20 sources) Dopamine-2 Receptor Antagonist Start: 04-09-20 take 1 tablet by mouth three times daily in the evening metoclopramide HCl (REGLAN) 10 mg tablet Take 1 tablet by mouth three times a day. 90 tablet 04/09/2025 2:21 PM EDT 04/09/2025 Active montelukast 10 mg oral tablet (5 sources) Leukotriene Receptor Antagonist Start: 04-18-20 End: 05-08-20 24 take 1 tablet by mouth once daily montelukast (Singulair) 10 MG tablet Indications: Idiopathic urticaria TAKE 1 TABLET BY MOUTH EVERY DAY FOR 90 DAYS 90 tablet 4 03/31/2024 Active Comment on above: Take 1 tablet by ruddy th every afternoon. Multi Complete - (3 sources) Multi Complete - as directed Orally Active nystatin 394910 unt/ml oral suspension (2 sources) Polyene Antifungal Start: 06-04-20 End: 06-14-20 25 take 5 mL by mouth four times daily nystatin (MYCOSTATIN) 100,000 unit/mL suspension Indications: Malignant neoplasm of rectum (HCC) , Thrush Take 5 mL by mouth four times daily for 10 days. Swish and retain for several minutes before swallowing. 200 mL 06/04/2025 06/14/2025 Active ondansetron 8 mg oral tablet (20 sources) Serotonin-3 Receptor Antagonist Start: 06-01-20 take 1 tablet by mouth every eight hours as needed for nausea ondansetron (ZOFRAN) 8 mg tablet Indications: Duodenal adenocarcinoma (HCC) Take 1 tablet by mouth every 8 hours as needed for nausea/vomiting. 30 tablet 06/01/2025 3:53 PM EDT 06/01/2025 Active Start: 04-09-2025 End: 05-10-2025 take 1 tablet by mouth every eight hours as needed for nausea ondansetron orally disintegrating (ZOFRAN ODT) 4 mg disintegrating tablet Indications: Duodenal adenocarcinoma (HCC) Place 1 tablet by mouth and let dissolve every 8 hours as needed for nausea/vomiting. 60 tablet 2 05/10/2025 Active Start: 03-05-2025 take 1 tablet by ruddy th every eight hours as needed for nausea and nausea ondansetron orally disintegrating (ZOFRAN ODT) 4 mg disintegrating tablet Indications: Nausea Take 1 tablet by mouth every 8 hours as needed for nausea/vomiting. 30 tablet 03/09/2025 1:36 PM EDT 03/05/2025 Suspended pantoprazole 40 mg delayed release oral tablet (20 sources) Proton Pump Inhibitor Start: 03-25-2025 End: 07-08-2025 take 1 tablet by mouth once daily pantoprazole DR (PROTONIX) 40 mg tablet Take 1 tablet by mouth once daily. 30 tablet 2 04/09/2025 07/08/2025 Active polyethylene glycol 3350 31008 mg powder for oral solution (16 sources) Osmotic Laxative Start: 03-09-2025 End: 03-10-2025 polyethylene glycol 3350 17 gram/dose powder Use as directed for Miralax / Sports Drink Bowel Prep Kit 238 g 03/09/2025 03/10/2025 Active Start: 03-05-2025 End: 04-04-2025 polyethylene glycol 3350 ([place] RALAX) 17 gram/dose powder Take 17 g by mouth once daily. Dissolve dose in 4 - 8 ounces of liquid and take as directed. 510 g 03/05/2025 04/04/2025 Active prochlorperazine 10 mg oral tablet (20 sources) Phenothiazine Start: 05-04-2025 take 1 tablet by mouth every six hours as needed prochlorperazine (COMPAZINE) 10 mg tablet Take 1 tablet by mouth every 6 hours as needed. 40 tablet 3 05/04/2025 4:20 PM EDT 05/04/2025 Active rosuvastatin calcium 10 mg oral tablet (20 sources) HMG-CoA Reductase Inhibitor Start: 12-24-2019 take 1 tablet by mouth once daily rosuvastatin (CRESTOR) 10 mg tablet Take 10 mg by mouth once daily. 12/24/2019 Active Comment on above: Take 10 mg by mouth once daily. sennosides, senior care 8.6 mg oral tablet (20 sources) Start: 03-05-2025 take 2 tablets by mouth once daily at bedtime Senna 8.6 mg tab Take 2 tablets by mouth daily at bedtime. 60 tablet 03/05/2025 Active sports drink (3 sources) Start: 03-09-2025 End: 03-10-2025 sports drink Use as directed for Miralax / Sports Drink Bowel Prep Kit 03/09/2025 03/10/2025 Active vitamin k1 5 mg oral tablet (3 sources) Warfarin Reversal Agent, Vitamin K Start: 03-09-2025 End: 03-14-2025 take 1 tablet by mouth once daily in the evening phytonadione, vitamin K1, (MEPHYTON) 5 mg tablet Take 1 tablet by mouth once daily for 5 days. Take for 5 days prior to surgery 5 tablet 03/09/2025 2:08 PM EDT 03/09/2025 03/14/2025 Active Completed/Discontinued Medications Medication Drug Class(es) Dates Sig (Normalized) Sig (Original) acetaminophen 325 mg oral tablet (1 source) Start: 03-15-2025 End: 03-15-2025 take 1 dose by mouth once, then take 4000 mg by mouth once daily 650 mg, ORAL, ONCE, 1 dose, On Sat03/15/25 at 1100, No more than 4000 mg of acetaminophen should be given per day (FROM ALL SOURCES) aspirin 81 mg delayed release oral tablet (1 source) Platelet Aggregation Inhibitor, Nonsteroidal Anti-inflammatory Drug End: 03-20-2022 aspirin, enteric coated (ADULT LOW DOSE ASPIRIN) 81 mg EC tablet Take 81 mg by mouth once daily. 0 03/20/2022 Discontinued (Discontinued by Patient) Comment on above: Take 81 mg by mouth once daily. atezolizumab 840 mg in NaCl 0.9% 124 mL (TECENTRIQ) (3 sources) Start: 06-01-2025 End: 06-01-2025 840 mg, INTRAVENOUS, Administer over 30 Minutes, ONCE, 1 dose, On Sat06/01/25 at 1230, EXP: Do Not Shake Start: 05-18-2025 End: 05-18-2025 840 mg, INTRAVENOUS, Adminis ter over 30 Minutes, ONCE, 1 dose, On Sat05/18/25 at 1130, EXP: Do Not Shake Start: 05-04-2025 End: 05-04-2025 840 mg, INTRAVENOUS, Adminis ter over 60 Minutes, ONCE, 1 dose, On Sat05/04/25 at 1200, EXP: Do Not Shake benoxinate hydrochloride 4 mg/ml / fluorescein sodium 3 mg/ml ophthalmic solution (5 sources) Diagnostic Dye Start: 06-07-2025 End: 06-07-2025 fluorescein-benoxinate 0.3-0.4 % 1 drop (FLURESS) Start: 06-07-2025 End: 06-07-2025 1 drop, BOTH EYES, DIRECT ED, Starting on Sat06/07/25 at 1000, Until Sat06/07/25 at 2159, Administer for applanation tonometry. In the event of a Fluress shortage, administer 1 drop of Ketty-Fluor into both eyes as directed for applanation tonometry., OPHT CLINIC MED ORDERS Start: 05-10-2025 End: 05-10-2025 fluorescein-benoxinate 0.3-0 .4 % 1 drop (FLURESS) Start: 05-10-2025 End: 05-10-2025 1 drop, BOTH EYES, DIRECT ED, Starting on Sat05/10/25 at 1030, Until Sat05/10/25 at 2229, Administer for applanation tonometry. In the event of a Fluress shortage, administer 1 drop of Taylors-Fluor into both eyes as directed for applanation tonometry., OPHT CLINIC MED ORDERS Start: 04-05-2025 End: 04-06-2025 fluorescein-benoxinate 0.3-0 .4 % 1 drop (FLURESS) 16 ml bevacizumab 25 mg/ml injection (6 sources) Vascular Endothelial Growth Factor Inhibitor Start: 06-07-2025 End: 06-07-2025 bevacizumab ophthalmic syringe 1.25 mg in 0.05 mL (AVASTIN) Start: 06-07-2025 End: 06-07-2025 1.25 mg, ONCE, 1 dose, Start ing on Sat06/07/25 at 1102, Until Sat06/07/25 at 1102 Start: 05-10-2025 End: 05-10-2025 bevacizumab ophthalmic syrin ge 1.25 mg in 0.05 mL (AVASTIN) Start: 05-10-2025 End: 05-10-2025 1.25 mg, ONCE, 1 dose, Start ing on Sat05/10/25 at 1103, Until Sat05/10/25 at 1103 Start: 04-05-2025 End: 04-05-2025 bevacizumab ophthalmic syrin ge 1.25 mg in 0.05 mL (AVASTIN) Start: 04-05-2025 End: 04-05-2025 1.25 mg, ONCE, 1 dose, Start ing on Sat04/05/25 at 1551, Until Sat04/05/25 at 1551 cholecalciferol 0.025 mg oral capsule (2 sources) Vitamin D take 1 capsule by mouth once daily Cholecalciferol, Vitamin D3, 1,000 unit cap Take 1,000 Units by mouth once daily. 0 Active Comment on above: Take 1,000 Units by mouth once daily. cholecalciferol, vitamin D3, (VITAMIN D3 ORAL) (20 sources) End: 06-01-20 cholecalciferol, vitamin D3, (VITAMIN D3 ORAL) Take by mouth. 06/01/2025 Discontinued cholecalciferol, vitamin D3, (VITAMIN D3 ORAL) Take by mouth. Suspended cholecalciferol, vitamin D3, (VITAMIN D3 ORAL) Take by mouth. Active 1 ml dexamethasone phosphate 4 mg/ml injection (3 sources) Corticosteroid Start: 06-01-2025 End: 06-01-2025 10 mg, INTRAVENOUS, ONCE, 1 dose, On Sat06/01/25 at 1200, Administer IV doses up to 10 mg over 5 minutes. Administer doses > 10 mg over 15 to 30 minutes. Start: 05-18-2025 End: 05-18-2025 10 mg, INTRAVENOUS, ONCE, 1 dose, On Sat05/18/25 at 1100, Administer IV doses up to 10 mg over 5 minutes. Administer doses > 10 mg over 15 to 30 minutes. Start: 05-04-2025 End: 05-04-2025 10 mg, INTRAVENOUS, ONCE, 1 dose, On Sat05/04/25 at 1130, Administer IV doses up to 10 mg over 5 minutes. Administer doses > 10 mg over 15 to 30 minutes. 2 ml famotidine 10 mg/ml injection (6 sources) Histamine-2 Receptor Antagonist Start: 03-15-2025 End: 03-15-2025 20 mg, INTRAVENOUS, ONCE, 1 dose, On Sat03/15/25 at 1100, REFRIGERATE Start: 04-01-2024 take 1 tablet by ruddy twice daily famotidine (Pepcid) 20 MG tablet Indications: Idiopathic urticaria TAKE 1 TABLET BY MOUTH TWICE A DAY FOR 90 DAYS 180 tablet 11 04/01/2024 Active Start: 04-18-2023 End: 05-08-2024 take 1 tablet by mouth every twelve hours famotidine (PEPCID) 20 mg tablet Take 1 tablet by mouth every 12 hours. 0 04/18/2023 05/08/2024 Discontinued Comment on above: Take 1 tablet by ruddy every 12 hours. fexofenadine hydrochloride 180 mg oral tablet (20 sources) Histamine-1 Receptor Antagonist Start: 03-10-2024 End: 05-19-2025 fexofenadine (ADEOLA) 180 mg tablet once daily. 03/10/2024 05/19/2025 Discontinued (Discontinued by Patient) fluorouracil 50 mg/ml injectable solution (3 sources) Nucleoside Metabolic Inhibitor Start: 06-01-2025 End: 06-01-2025 620 mg (400 mg/m2 1.55 m2 Treatment Plan BSA from Recorded weight), INTRAVENOUS, ONCE, 1 dose, On Sat06/01/25 at 1500, Push over 2-4 minutes start immediately after leucovorin infusion is complete. EXP: Hazardous Chemotherapy Drug: Use appropriate PPE. Start: 05-18-2025 End: 05-18-2025 620 mg (400 mg/m2 1.55 m2 Tr eatment Plan BSA from Recorded weight), INTRAVENOUS, ONCE, 1 dose, On Sat05/18/25 at 1400, Push over 2-4 minutes start immediately after leucovorin infusion is complete. EXP: Hazardous Chemotherapy Drug: Use appropriate PPE. Start: 05-04-2025 End: 05-04-2025 620 mg (400 mg/m2 1.55 m2 Tr eatment Plan BSA from Recorded weight), INTRAVENOUS, ONCE, 1 dose, On Sat05/04/25 at 1500, Push over 2-4 minutes start immediately after leucovorin infusion is complete. EXP: Hazardous Chemotherapy Drug: Use appropriate PPE. fluorouracil (ADRUCIL) 3,720 mg in NaCl 0.9% 102 mL in empty bag (3 sources) Start: 06-01-2025 End: 06-01-2025 3,720 mg (2,400 mg/m2 1.55 m 2 Treatment Plan BSA from Recorded weight), INTRAVENOUS, at 2.2 mL/hr, Administer over 46 Hours, ONCE, 1 dose, On Sat06/01/25 at 1500, EXP: Hazardous Chemotherapy Drug: Use appropriate PPE. Protect from Light. Start: 05-18-2025 End: 05-18-2025 3,720 mg (2,400 mg/m2 1.55 m 2 Treatment Plan BSA from Recorded weight), INTRAVENOUS, at 2.2 mL/hr, Administer over 46 Hours, ONCE, 1 dose, On Sat05/18/25 at 1400, EXP: Hazardous Chemotherapy Drug: Use appropriate PPE. Protect from Light. Start: 05-04-2025 End: 05-04-2025 3,720 mg (2,400 mg/m2 1.55 m 2 Treatment Plan BSA from Recorded weight), INTRAVENOUS, at 2.2 mL/hr, Administer over 46 Hours, ONCE, 1 dose, On Sat05/04/25 at 1500, EXP: Hazardous Chemotherapy Drug: Use appropriate PPE. Protect from Light. fluticasone propionate 0.05 mg/actuat metered dose nasal spray (2 sources) Corticosteroid take 1 spray(s) nasal route once daily fluticasone (FLONASE) 50 mcg/actuation nasal spray Use 1 Bacova in each nostril once daily. 0 Active Comment on above: Use 1 Bacova in each nostril once daily. iron dextran 25 mg in NaCl 0.9% 50 mL (1 source) Start: 03-15-20 End: 03-15-20 25 mg, INTRAVENOUS, at 100 mL/hr, Administer over 30 Minutes, ONCE, 1 dose, On Sat03/15/25 at 1130, The is the TEST dose of Iron Dextran. Run PRIOR to bolus dose. Approx Total Volume iron dextran 975 mg in NaCl 0.9% 250 mL (1 source) Start: 03-15-20 End: 03-15-20 975 mg, INTRAVENOUS, at 125 mL/hr, Administer over 2 Hours, ONCE, 1 dose, On Sat03/15/25 at 1330 KRILL OIL ORAL (1 source) End: 03-20-20 KRILL OIL ORAL Take by mouth once daily. 0 03/20/2022 Discontinued (Discontinued by Patient) Comment on above: Take by mouth once d aily. Leucovorin (3 sources) Folate Analog Start: 06-01-20 End: 06-01-20 620 mg (400 mg/m2 1.55 m2 Treatment Plan BSA from Recorded weight), INTRAVENOUS, Administer over 2.5 Hours, ONCE, 1 dose, On Sat06/01/25 at 1230, PROTECT FROM LIGHT ADMINISTER CONCURRENTLY WITH OXALIPLATIN. REFRIGERATE Start: 05-18-2025 End: 05-18-2025 620 mg (400 mg/m2 1.55 m2 Tr eatment Plan BSA from Recorded weight), INTRAVENOUS, Administer over 2.5 Hours, ONCE, 1 dose, On Sat05/18/25 at 1130, PROTECT FROM LIGHT ADMINISTER CONCURRENTLY WITH OXALIPLATIN. REFRIGERATE Start: 05-04-2025 End: 05-04-2025 620 mg (400 mg/m2 1.55 m2 Tr eatment Plan BSA from Recorded weight), INTRAVENOUS, Administer over 3 Hours, ONCE, 1 dose, On Sat05/04/25 at 1200, PROTECT FROM LIGHT EXP: ADMINISTER CONCURRENTLY WITH OXALIPLATIN. REFRIGERATE metroNIDAZOLE 500 mg oral tablet (8 sources) Nitroimidazole Antimicrobial Start: 03-09-2025 End: 03-09-2025 take 1 tablet by mouth in the evening metroNIDAZOLE (FLAGYL) 500 mg tablet Take 1 tablet by mouth at 7 pm and take 1 tablet by mouth at 9 pm the night before surgery. 2 tablet 03/09/2025 1:36 PM EDT 03/09/2025 Suspended neomycin sulfate 500 mg oral tablet (8 sources) Aminoglycoside Antibacterial Start: 03-09-2025 End: 03-09-2025 take 2 tablets by mouth in the evening neomycin 500 mg tablet Take 2 tablets by mouth at 7 pm and take 2 tablets by mouth at 9 pm the night before surgery. 4 tablet 03/09/2025 1:36 PM EDT 03/09/2025 Suspended omeprazole 20 mg delayed release oral capsule (20 sources) Proton Pump Inhibitor End: 06-01-2025 take 1 capsule by mouth once daily omeprazole (PRILOSEC) 20 mg capsule 1 capsule 1/2 to 1 hour before morning meal Orally Once a day 06/01/2025 Discontinued take 1 capsule by mo [facility] every twenty-four hours omeprazole (PRILOSEC) 10 mg capsule Take 10 mg by mouth every 24 hours. Suspended take 1 capsule by mouth once bhavya ly Omeprazole 10 MG 1 capsule 30 minutes before morning meal Orally Once a day Active OMEPRAZOLE MAGNE SIUM (PRILOSEC OTC ORAL) Take 1 tablet by mouth as needed. 0 Active Comment on above: Take 1 tablet by [facility] as needed. oxaliplatin (3 sources) [place] Start: 06-01-2025 End: 06-01-2025 131.75 mg (85 mg/m2 1.55 m2 Treatment Plan BSA from Recorded weight), INTRAVENOUS, Administer over 2 Hours, ONCE, 1 dose, On Sat06/01/25 at 1300, Administer concurrently with leucovorin. EXP: Hazardous Chemotherapy Drug: Use appropriate PPE. Antineoplastic Irritant with Vesicant Potential. Flush line with D5W before and after administration. Start: 05-18-2025 End: 05-18-2025 131.75 mg (85 mg/m2 1.55 m2 Treatment Plan BSA from Recorded weight), INTRAVENOUS, Administer over 2 Hours, ONCE, 1 dose, On Sat05/18/25 at 1200, Administer concurrently with leucovorin. EXP: Hazardous Chemotherapy Drug: Use appropriate PPE. Antineoplastic Irritant with Vesicant Potential. Flush line with D5W before and after administration. Start: 05-04-2025 End: 05-04-2025 131.75 mg (85 mg/m2 1.55 m2 Treatment Plan BSA from Recorded weight), INTRAVENOUS, Administer over 2 Hours, ONCE, 1 dose, On Sat05/04/25 at 1300, Administer concurrently with leucovorin. EXP: Hazardous Chemotherapy Drug: Use appropriate PPE. Antineoplastic Irritant with Vesicant Potential. Flush line with D5W before and after administration. 5 ml palonosetron 0.05 mg/ml injection (3 sources) Serotonin-3 Receptor Antagonist Start: 06-01-2025 End: 06-01-2025 0.25 mg, INTRAVENOUS, ONCE, 1 dose, On Sat06/01/25 at 1200, Flush IV line with NS prior to and following administration. Start: 05-18-2025 End: 05-18-2025 0.25 mg, INTRAVENOUS, ONCE, 1 dose, On Sat05/18/25 at 1100, Flush IV line with NS prior to and following administration. Start: 05-04-2025 End: 05-04-2025 0.25 mg, INTRAVENOUS, ONCE, 1 dose, On Sat05/04/25 at 1130, Flush IV line with NS prior to and following administration. phenylephrine hydrochloride 25 mg/ml ophthalmic solution (5 sources) alpha-1 Adrenergic Agonist Start: 06-07-2025 End: 06-07-2025 PHENYLephrine 2.5 % 1 drop (AK-DILATE, SHELDON-SYNEPHRINE) Start: 06-07-2025 End: 06-07-2025 1 drop, BOTH EYES, DIRECT ED, Starting on Sat06/07/25 at 1000, Until Sat06/07/25 at 2159, Administer for dilation PROTECT FROM LIGHT, OPHT CLINIC MED ORDERS Start: 05-10-2025 End: 05-10-2025 PHENYLephrine 2.5 % 1 drop ( AK-DILATE, SHELDON-SYNEPHRINE) Start: 05-10-2025 End: 05-10-2025 1 drop, BOTH EYES, DIRECT ED, Starting on Sat05/10/25 at 1030, Until Sat05/10/25 at 2229, Administer for dilation PROTECT FROM LIGHT, OPHT CLINIC MED ORDERS Start: 04-05-2025 End: 04-06-2025 PHENYLephrine 2.5 % 1 drop ( AK-DILATE, SHELDON-SYNEPHRINE) predniSONE 50 mg oral tablet (2 sources) Start: 01-23-2023 End: 05-08-2024 take 1 tablet by mouth once daily predniSONE (DELTASONE) 50 mg TAKE 1 TABLET BY MOUTH ONCE DAILY AT ONSET OF SWELLING OR HIVES 0 01/23/2023 05/08/2024 Discontinued Comment on above: TAKE 1 TABLET BY RUDDY TH ONCE DAILY AT ONSET OF SWELLING OR HIVES proparacaine hydrochloride 5 mg/ml ophthalmic solution (3 sources) Local Anesthetic Start: 06-07-2025 End: 06-07-2025 proparacaine 0.5 % 1 drop (ALCAINE) Start: 05-10-2025 End: 05-10-2025 proparacaine 0.5 % 1 drop (A LCAINE) Start: 04-05-2025 End: 04-06-2025 proparacaine 0.5 % 1 drop (A LCAINE) sulfamethoxazole 800 mg / trimethoprim 160 mg oral tablet (2 sources) Dihydrofolate Reductase Inhibitor Antibacterial, Sulfonamide Antimicrobial Start: 03-19-2022 sulfamethoxazole-trimethopri m (BACTRIM DS,SEPTRA DS) 800-160 mg per tablet triamcinolone acetonide 40 mg/ml injectable suspension (3 sources) Corticosteroid Start: 01-14-2023 Kenalog-40 Dec, 60 m g tropicamide 10 mg/ml ophthalmic solution (5 sources) Anticholinergic Start: 06-07-2025 End: 06-07-2025 tropicamide 1 % 1 drop (MYDRIACYL) Start: 06-07-2025 End: 06-07-2025 1 drop, BOTH EYES, DIRECT ED, Starting on Sat06/07/25 at 1000, Until Sat06/07/25 at 2159, Administer for dilation, OPHT CLINIC MED ORDERS Start: 05-10-2025 End: 05-10-2025 tropicamide 1 % 1 drop (MYDR IACYL) Start: 05-10-2025 End: 05-10-2025 1 drop, BOTH EYES, DIRECT ED, Starting on Sat05/10/25 at 1030, Until Sat05/10/25 at 2229, Administer for dilation, OPHT CLINIC MED ORDERS Start: 04-05-2025 End: 04-06-2025 tropicamide 1 % 1 drop (MYDR IACYL) VIT C/MAISHA AC/LUT/COPPER/ZNO X (PRESERVISION LUTEIN ORAL) (20 sources) End: 06-01-2025 VIT C/MAISHA AC/LUT/COPPER/ZNO X (PRESERVISION LUTEIN ORAL) Take by mouth. 06/01/2025 Discontinued VIT C/MAISHA AC/KATIE T/COPPER/ZNOX (PRESERVISION LUTEIN ORAL) Take by mouth. Suspended VIT C/MAISHA AC/KATIE T/COPPER/ZNOX (PRESERVISION LUTEIN ORAL) Take by mouth. Active VIT C/MAISHA AC/KATIE T/COPPER/ZNOX (PRESERVISION LUTEIN ORAL) Take by mouth. 0 Active Comment on above: Take by mouth. vitamin b12 1 mg oral tablet (2 sources) Vitamin B12 take 1 tablet by mouth once daily cyanocobalamin (VITAMIN B-12) 1,000 mcg tab Take 1,000 mcg by mouth once daily. 0 Active Comment on above: Take 1,000 mcg by [facility] once daily. 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 breast; Translations: [Malignant neoplasm of lower-inner quadrant of right female breast] Onset: 0 Chronic Cancer of other GI organs; peritoneum (20 sources) Malignant tumor of ampulla of Vater; Translations: [Malignant neoplasm of ampulla of Vater] Onset: 5 02-26-2025 Chronic Cancer of rectum and anus (1 source) Malignant tumor of rectum; Translations: [Malignant neoplasm of rectum] 06-04-2025 Chronic Cardiac dysrhythmias (20 sources) Supraventricular tachycardia; Translations: [Supraventricular tachycardia] Onset: 0 04-26-2020 Chronic Cataract (4 sources) Nuclear sclerosis; Translations: [Age-related nuclear cataract, bilateral] Onset: 5 04-05-2025 Chronic Deficiency and other anemia (20 sources) Iron deficiency anemia due to blood loss; Translations: [Iron deficiency anemia secondary to blood loss (chronic)] Onset: 5 03-09-2025 Chronic Deficiency and other anemia (20 sources) Anemia of chronic disease; Translations: [Anemia in other chronic diseases classified elsewhere] Onset: 5 03-20-2025 Chronic Deficiency and other anemia (1 source) Iron deficiency anemia secondary to blood loss (chronic); Translations: [Iron deficiency anemia due to chronic blood loss] Onset: 5 Chronic Disorders of lipid metabolism (20 sources) Hyperlipidemia, unspecified; Translations: [Hyperlipidemia] Onset: 9 Chronic Esophageal disorders (20 sources) Gastroesophageal reflux disease; Translations: [Gastro-esophageal reflux disease without esophagitis] Onset: 5 03-05-2025 Chronic Genitourinary symptoms and ill-defined conditions (5 sources) Dysuria; Translations: [Dysuria] Onset: 2 Episodic Lymphadenitis (1 source) Lymphadenopathy; Translations: [Enlarged lymph nodes, unspecified] Episodic Maintenance chemotherapy; radiotherapy (4 sources) Patient encounter status; Translations: [Encounter for antineoplastic chemotherapy] Onset: 5 06-01-2025 Chronic Malaise and fatigue (5 sources) Malaise and fatigue; Translations: [Other malaise] Onset: 5 05-18-2025 Episodic Menopausal disorders (1 source) Atrophic vaginitis; Translations: [Postmenopausal atrophic vaginitis] Onset: 9 Chronic Mycoses (2 sources) Onychomycosis due to dermatophyte ; Translations: [Dermatophytosis of nail] Onset: 5 06-04-2025 Episodic Nausea and vomiting (20 sources) Postoperative nausea and vomiting; Translations: [Nausea with vomiting, unspecified] Onset: 5 03-05-2025 Episodic Nonspecific chest pain (1 source) Chest pain; Translations: [Chest pain, unspecified] Episodic Nutritional deficiencies (20 sources) Deficiency of macronutrients; Translations: [Unspecified severe protein-calorie malnutrition] Onset: 5 03-19-2025 Chronic Other and unspecified benign neoplasm (1 source) Adenoma of ampulla of Vater; Translations: [Benign neoplasm of extrahepatic bile ducts] 03-18-2025 Episodic Other endocrine disorders (1 source) Hyperparathyroidism; Translations: [Hyperparathyroidism, unspecified] Onset: Chronic Other gastrointestinal disorders (3 sources) Finding of abdominopelvic segment of trunk; Translations: [Intra-abdominal and pelvic swelling, mass and lump, unspecified site] 02-26-2025 Episodic Other injuries and conditions due to external causes (1 source) History of fall; Translations: [History of falling] Episodic Other liver diseases (20 sources) Liver cyst; Translations: [Other specified diseases of liver] Onset: 5 03-05-2025 Chronic Other liver diseases (1 source) Other specified diseases of liver; Translations: [Liver cyst] Onset: 5 Chronic Other liver diseases (3 sources) Liver mass; Translations: [Hepatomegaly, not elsewhere classified] 02-26-2025 Episodic Other liver diseases (1 source) Enzyme level - finding; Translations: [Transaminitis] 05-19-2025 Episodic Other nervous system disorders (20 sources) Postoperative pain ; Translations: [Other acute postprocedural pain] Onset: 5 03-20-2025 Episodic Other non-traumatic joint disorders (1 source) Arthralgia of the ankle and/or foot; Translations: [Pain in right ankle and joints of right foot] Episodic Other nutritional; endocrine; and metabolic disorders (1 source) Abnormal weight loss; Translations: [Abnormal weight loss] 05-19-2025 Episodic Other nutritional; endocrine; and metabolic disorders (1 source) Abnormal weight loss; Translations: [Abnormal weight loss] Onset: 5 Episodic Other screening for suspected conditions (not mental disorders or infectious disease) (8 sources) Patient encounter status; Translations: [Encounter for other screening for malignant neoplasm of breast] Onset: 2 Episodic Other upper respiratory disease (3 sources) Seasonal allergic rhinitis; Translations: [Other seasonal allergic rhinitis] Chronic Other upper respiratory disease (1 source) Other seasonal allergic rhinitis Chronic Other upper respiratory disease (1 source) Allergic rhinitis; Translations: [Allergic rhinitis, unspecified] Chronic Residual codes; unclassified (1 source) Normal body mass index; Translations: [Body mass index (BMI) 22.0-22.9, adult] Episodic Residual codes; unclassified (1 source) At risk of malignancy; Translations: [Other specified personal risk factors, not elsewhere classified] 04-09-2025 Episodic Residual codes; unclassified (1 source) Other specified personal risk factors, not elsewhere classified; Translations: [Increased risk for hereditary cancer syndrome] Onset: 5 Episodic Residual codes; unclassified (1 source) Family history of malignant neoplasm, unspecified; Translations: [Increased risk for hereditary cancer syndrome] Onset: 5 Episodic Retinal detachments; defects; vascular occlusion; and retinopathy (10 sources) Degenerative disorder of macula ; Translations: [Unspecified macular degeneration] Onset: 5 03-24-2025 Chronic Thyroid disorders (20 sources) Hypothyroidism, unspecified; Translations: [Hypothyroidism] Onset: 2 03-05-2025 Chronic Unclassified (4 sources) Preprocedural examination done 02-26-2025 Unclassified (1 source) Pre-Op Exam Onset: 5 Past or Other Problems Problem Classification Problem Date Documented Da te Episodic/Chronic Cancer of breast (20 sources) Personal history of malignant neoplasm of breast; Translations: [Personal history of primary malignant neoplasm of breast] Onset: 03-24-2015 05-08-2024 Episodic Neoplasms of unspecified nature or uncertain behavior (20 sources) Neoplasm of ampulla of Vater; Translations: [Neoplasm of unspecified behavior of digestive system] Onset: 03-05-2025 03-05-2025 Episodic Other bone disease and musculoskeletal deformities (20 sources) Osteopenia; Translations: [Other specified disorders of bone density and structure, unspecified site] Onset: 06-25-2017 06-25-2017 Episodic Other gastrointestinal disorders (1 source) Intra-abdominal and pelvic swelling, mass and lump, unspecified site; Translations: [Intra-abdominal and pelvic swelling, mass and lump, unspecified site] Onset: 03-05-2025 Episodic Other liver diseases (1 source) Hepatomegaly, not elsewhere classified; Translations: [Liver mass] Onset: 03-07-2025 Episodic Other nervous system disorders (1 source) Other acute postprocedural pain; Translations: [Post-operative pain] Onset: 03-20-2025 Episodic Other non-traumatic joint disorders (1 source) Arthralgia of the lower leg; Translations: [Pain in right knee] Onset: 03-24-2015 Episodic Residual codes; unclassified (1 source) Other specified postprocedural states; Translations: [PONV (postoperative nausea and vomiting)] Onset: 03-05-2025 Episodic Unclassified (1 source) Gynecological examination normal; Translations: [Routine gynecological examination] Onset: 04-02-2006 Unclassified (6 sources) Finding of abdominopelvic segment of trunk 02-26-2025 Results Test Name Value Interpretation Reference Range Facility [facility] 07-05-2025 CNPN Normal [facility] CNOVSPon 06-30-2025 CNOVSP Normal [facility] CBC W Auto Differential pane l (Bld)on 06-29-2025 Basophils (Bld) [#/Vol] 10*3/uL Normal <0.11 [facility] Comment on above: Order Comment: Speci men Type: BLOOD SPECIMENOrdering Facility: [facility] Address: [address] [place] [address] Performed By: #### 5 7021-8 ####[facility] [id number] [place] [address] [place] Basophils/100 WBC (Bld) 0.0 % Normal [facility] Comment on above: Order Comment: Speci men Type: BLOOD SPECIMENOrdering Facility: [facility] Address: [address] [place] [address] Performed By: #### 5 7021-8 ####[facility] [id number] [place] [address] [place] Differential cell count method Nom (Bld) Auto Normal [facility] Comment on above: Order Comment: Speci men Type: BLOOD SPECIMENOrdering Facility: [facility] Address: [address] [place] [address] Performed By: #### 5 7021-8 ####[facility] [id number] [place] [address] [place] Eosinophils (Bld) [#/Vol] 0.04 10*3/uL Normal <0.46 [facility] Comment on above: Order Comment: Speci men Type: BLOOD SPECIMENOrdering Facility: [facility] Address: [address] [place] [address] Performed By: #### 5 7021-8 ####[facility] [id number] [place] [address] [place] Eosinophils/100 WBC (Bld) 0.6 % Normal [facility] Comment on above: Order Comment: Speci men Type: BLOOD SPECIMENOrdering Facility: [facility] Address: [address] [place] [address] Performed By: #### 5 7021-8 ####[facility] [id number] [place] [address] [place] Erythrocyte distribution width (RBC) [Ratio] 17.5 % High 11.5-15.0 [facility] Comment on above: Order Comment: Speci men Type: BLOOD SPECIMENOrdering Facility: [facility] Address: [address] [place] [address] Performed By: #### 5 7021-8 ####[facility] [id number] [place] [address] [place] Hematocrit (Bld) [Volume fraction] 36.6 % Normal 36.0-46.0 [facility] Comment on above: Order Comment: Speci men Type: BLOOD SPECIMENOrdering Facility: [facility] Address: [address] [place] [address] Performed By: #### 5 7021-8 ####[facility] [id number] [place] [address] [place] Hemoglobin (Bld) [Mass/Vol] 12.2 g/dL Normal 11.5-15.5 [facility] Comment on above: Order Comment: Speci men Type: BLOOD SPECIMENOrdering Facility: [facility] Address: [address] [place] [address] Performed By: #### 5 7021-8 ####[facility] [id number] [place] [address] [place] Immature granulocytes (Bld) [#/Vol] 0.12 10*3/uL High <0.10 [facility] Comment on above: Order Comment: Speci men Type: BLOOD SPECIMENOrdering Facility: [facility] Address: [address] [place] [address] Performed By: #### 5 7021-8 ####[facility] [id number] [place] [address] [place] Immature granulocytes/100 WBC (Bld) 1.8 % Normal [facility] Comment on above: Order Comment: Speci men Type: BLOOD SPECIMENOrdering Facility: [facility] Address: [address] [place] [address] Performed By: #### 5 7021-8 ####[facility] [id number] [place] [address] [place] Lymphocytes (Bld) [#/Vol] 0.85 10*3/uL Low 1.00-4.00 [facility] Comment on above: Order Comment: Speci men Type: BLOOD SPECIMENOrdering Facility: [facility] Address: [address] [place] [address] Performed By: #### 5 7021-8 ####[facility] [id number] [place] [address] [place] Lymphocytes/100 WBC (Bld) 12.8 % Normal [facility] Comment on above: Order Comment: Speci men Type: BLOOD SPECIMENOrdering Facility: [facility] Address: [address] [place] [address] Performed By: #### 5 7021-8 ####[facility] [id number] [place] [address] [place] MCH (RBC) [Entitic mass] 29.7 pg Normal 26.0-34.0 [facility] Comment on above: Order Comment: Speci men Type: BLOOD SPECIMENOrdering Facility: [facility] Address: [address] [place] [address] Performed By: #### 5 7021-8 ####[facility] [id number] [place] [address] [place] MCHC (RBC) [Mass/Vol] 33.3 g/dL Normal 30.5-36.0 [facility] Comment on above: Order Comment: Speci men Type: BLOOD SPECIMENOrdering Facility: [facility] Address: [address] [place] [address] Performed By: #### 5 7021-8 ####[facility] [id number] [place] [address] [place] MCV (RBC) [Entitic vol] 89.1 fL Normal 80.0-100.0 [facility] Comment on above: Order Comment: Speci men Type: BLOOD SPECIMENOrdering Facility: [facility] Address: [address] [place] [address] Performed By: #### 5 7021-8 ####[facility] [id number] [place] [address] [place] Monocytes (Bld) [#/Vol] 0.55 10*3/uL Normal <0.87 [facility] Comment on above: Order Comment: Speci men Type: BLOOD SPECIMENOrdering Facility: [facility] Address: [address] [place] [address] Performed By: #### 5 7021-8 ####[facility] [id number] [place] [address] [place] Monocytes/100 WBC (Bld) 8.3 % Normal [facility] Comment on above: Order Comment: Speci men Type: BLOOD SPECIMENOrdering Facility: [facility] Address: [address] [place] [address] Performed By: #### 5 7021-8 ####[facility] [id number] [place] [address] [place] Neutrophils (Bld) [#/Vol] 5.08 10*3/uL Normal 1.45-7.50 [facility] Comment on above: Order Comment: Speci men Type: BLOOD SPECIMENOrdering Facility: [facility] Address: [address] [place] [address] Performed By: #### 5 7021-8 ####[facility] [id number] [place] [address] [place] Neutrophils/100 WBC (Bld) 76.5 % Normal [facility] Comment on above: Order Comment: Speci men Type: BLOOD SPECIMENOrdering Facility: [facility] Address: [address] [place] [address] Performed By: #### 5 7021-8 ####[facility] [id number] [place] [address] [place] Nucleated RBC (Bld) [#/Vol] 10*3/uL Normal <0.01 [facility] Comment on above: Order Comment: Speci men Type: BLOOD SPECIMENOrdering Facility: [facility] Address: [address] [place] [address] Performed By: #### 5 7021-8 ####[facility] [id number] [place] [address] [place] Nucleated RBC/100 WBC (Bld) [Ratio] 0.0 /100 WBC Normal [facility] Comment on above: Order Comment: Speci men Type: BLOOD SPECIMENOrdering Facility: [facility] Address: [address] [place] [address] Performed By: #### 5 7021-8 ####[facility] [id number] [place] [address] [place] Platelet mean volume (Bld) [Entitic vol] 9.2 fL Normal 9.0-12.7 [facility] Comment on above: Order Comment: Speci men Type: BLOOD SPECIMENOrdering Facility: [facility] Address: [address] [place] [address] Performed By: #### 5 7021-8 ####[facility] [id number] [place] [address] [place] Platelets (Bld) [#/Vol] 149 10*3/uL Low 150-400 [facility] Comment on above: Order Comment: Speci men Type: BLOOD SPECIMENOrdering Facility: [facility] Address: [address] [place] [address] Performed By: #### 5 7021-8 ####[facility] [id number] [place] [address] [place] RBC (Bld) [#/Vol] 4.11 10*6/uL Normal 3.90-5.20 [facility] Comment on above: Order Comment: Speci men Type: BLOOD SPECIMENOrdering Facility: [facility] Address: [address] [place] [address] Performed By: #### 5 7021-8 ####[facility] [id number] [place] [address] [place] WBC (Bld) [#/Vol] 6.64 10*3/uL Normal 3.70-11.00 [facility] Comment on above: Order Comment: Speci men Type: BLOOD SPECIMENOrdering Facility: [facility] Address: [address] [place] [address] Performed By: #### 5 7021-8 ####[facility] [id number] [place] [address] [place] CEA SerPl-mCncon 06-29-2025 Carcinoembryonic Ag [Mass/Vol] 1.6 ng/mL Normal <=2.9 [facility] Comment on above: Order Comment: Speci men Type: BLOOD SPECIMENOrdering Facility: [facility] Address: [address] [place] [address] Result Comment: Carc inoembryonic antigen test is used as an aid in monitoring response to treatment or recurrence in patients with established colorectal, breast, lung, prostatic, pancreatic, and ovarian carcinomas. Clinical correlation is required.The Carcinoembryonic antigen test was performed using the NXT-IDel DXI paramagnetic particle chemiluminescent immunoassay method. Results obtained with different assay methods or kits cannot be used interchangeably. Performed By: #### 2 4108-3, 2039-02 ####[facility] [facility] [id number] [place] [address] [place] CNOVSPon 06-29-2025 CNOVSP Normal [facility] Cancer Ag19-9 SerPl-aCncon 1 Cancer Ag 19-9 Qn 73.0 [arb'U]/mL High <36.0 [facility] Comment on above: Order Comment: Speci men Type: BLOOD SPECIMENOrdering Facility: [facility] Address: [address] [place] [address] Result Comment: Canc er antigen 19-9 test is used as an aid in monitoring response to treatment or recurrence in patients with established pancreatic, hepatobiliary, or gastrointestinal malignancies. Clinical correlation is required.The CA 19-9 Antigen test was performed using the [employer] Unicel DXI paramagnetic particle chemiluminescent immunoassay method. Results obtained with different assay methods or kits cannot be used interchangeably. Performed By: #### 2 4108-3, 2039-02 ####[facility] [id number] [address] [address] [place] Comprehensive metabolic 2000 panelon 06-29-2025 Albumin [Mass/Vol] 4.2 g/dL Normal 3.9-4.9 [facility] Comment on above: Order Comment: Speci men Type: BLOOD SPECIMENOrdering Facility: [facility] Address: [address] [place] [address] Performed By: #### 2 4323-8, 43119-6 ####[facility] [id number] [place] [address] [place] ALP [Catalytic activity/Vol] 110 U/L Normal 34-123 [facility] Comment on above: Order Comment: Speci men Type: BLOOD SPECIMENOrdering Facility: [facility] Address: [address] [place] [address] Performed By: #### 2 4323-8, 99247-1 ####[facility] [id number] [place] [address] [place] ALT [Catalytic activity/Vol] 37 U/L Normal 7-38 [facility] Comment on above: Order Comment: Speci men Type: BLOOD SPECIMENOrdering Facility: [facility] Address: [address] [place] [address] Performed By: #### 2 4323-8, 99741-5 ####[facility] [id number] [place] [address] [place] Anion gap [Moles/Vol] 11 mmol/L Normal 8-15 [facility] Comment on above: Order Comment: Speci men Type: BLOOD SPECIMENOrdering Facility: [facility] Address: [address] [place] [address] Performed By: #### 2 4323-8, 34034-4 ####[facility] [id number] [place] [address] [place] AST [Catalytic activity/Vol] 44 U/L High 13-35 [facility] Comment on above: Order Comment: Speci men Type: BLOOD SPECIMENOrdering Facility: [facility] Address: [address] [place] [address] Performed By: #### 2 4323-8, 80792-7 ####[facility] [id number] [place] [address] [place] Bilirubin [Mass/Vol] 0.3 mg/dL Normal 0.2-1.3 [facility] Comment on above: Order Comment: Speci men Type: BLOOD SPECIMENOrdering Facility: [facility] Address: [address] [place] [address] Performed By: #### 2 4323-8, 49956-7 ####[facility] [place] [id number] [place] [address] [place] Calcium [Mass/Vol] 9.1 mg/dL Normal 8.5-10.2 [facility] Comment on above: Order Comment: Speci men Type: BLOOD SPECIMENOrdering Facility: [facility] Address: [address] [place] [address] Performed By: #### 2 4323-8, 56285-3 ####[facility] [place] [id number] [place] [address] [place] Chloride [Moles/Vol] 107 mmol/L Normal 98-107 [facility] Comment on above: Order Comment: Speci men Type: BLOOD SPECIMENOrdering Facility: [facility] Address: [address] [place] [address] Performed By: #### 2 4323-8, 61637-0 ####[facility] [id number] [place] [address] [place] CO2 [Moles/Vol] 24 mmol/L Normal 22-30 [facility] Comment on above: Order Comment: Speci men Type: BLOOD SPECIMENOrdering Facility: [facility] Address: [address] [place] [address] Performed By: #### 2 4323-8, 42311-9 ####[facility] [id number] [place] [address] [place] Creatinine [Mass/Vol] 0.50 mg/dL Low 0.58-0.96 [facility] Comment on above: Order Comment: Speci men Type: BLOOD SPECIMENOrdering Facility: [facility] Address: [address] [place] [address] Performed By: #### 2 4323-8, 10098-1 ####[facility] [id number] [place] [address] [place] eGFRcr SerPlBld CKD-EPI 2020 100 mL/min/1.73m??? Normal >=60 [facility] Comment on above: Order Comment: Speci men Type: BLOOD SPECIMENOrdering Facility: [facility] Address: [address] [place] [address] Result Comment: Lupe mated Glomerular Filtration Rate [...] reflect actual GFR. Performed By: #### 2 4323-8, 33705-7 ####[facility] [id number] [place] [address] [place] Glucose [Mass/Vol] 109 mg/dL High 74-99 [facility] Comment on above: Order Comment: Armandoi men Type: BLOOD SPECIMENOrdering Facility: [facility] Address: [address] [place] [address] Result Comment: The [place] [employer] (ADA) provides guidance for cutoff values for fasting glucose and random glucose. The ADA defines fasting as no caloric intake for at least 8 hours. Fasting plasma glucose results between 100 to 125 mg/dL indicate increased risk for diabetes (prediabetes).Fasting plasma glucose results greater than or equal to 126 mg/dL meet the criteria for diagnosis of diabetes. In the absence of unequivocal hyperglycemia, results should be confirmed by repeat testing. In a patient with classic symptoms of hyperglycemia or hyperglycemic crisis, random plasma glucose results greater than or equal to 200 mg/dL meet the criteria for diagnosis of diabetes.Reference: Standards of Medical Care in Diabetes 2016, [place] [employer]. Diabetes Care. 2016.39(Suppl 1). Performed By: #### 2 4323-8, 24861-9 ####[facility] [id number] [place] [address] [place] Potassium [Moles/Vol] 4.0 mmol/L Normal 3.7-5.1 [facility] Comment on above: Order Comment: Speci men Type: BLOOD SPECIMENOrdering Facility: [facility] Address: [address] [place] [address] Performed By: #### 2 4323-8, 59883-6 ####[facility] [id number] [place] [address] [place] Protein [Mass/Vol] 6.6 g/dL Normal 6.3-8.0 [facility] Comment on above: Order Comment: Speci men Type: BLOOD SPECIMENOrdering Facility: [facility] Address: [address] [place] [address] Performed By: #### 2 4323-8, 66112-3 ####[facility] [id number] [place] [address] [place] Sodium [Moles/Vol] 142 mmol/L Normal 136-144 [facility] Comment on above: Order Comment: Speci men Type: BLOOD SPECIMENOrdering Facility: [facility] Address: [address] [place] [address] Performed By: #### 2 4323-8, 11960-8 ####[facility] [id number] [place] [address] [place] Urea nitrogen [Mass/Vol] 9 mg/dL Normal 7-21 [facility] Comment on above: Order Comment: Speci men Type: BLOOD SPECIMENOrdering Facility: [facility] Address: [address] [place] [address] Performed By: #### 2 4323-8, 38983-7 ####[facility] [place] [id number] [place] [address] [place] Ferritin SerPl-mCncon 2024 Ferritin [Mass/Vol] 808.0 ng/mL High 14.7-205.1 [facility] Comment on above: Order Comment: Speci men Type: BLOOD SPECIMENOrdering Facility: [facility] Address: [address] [place] [address] Performed By: #### 2 276-4, 3016-3 ####[facility] [id number] [place] [address] [place] Iron and Iron binding capaci ty panelon 06-29-2025 Iron [Mass/Vol] 69 ug/dL Normal 41-186 [facility] Comment on above: Order Comment: Speci men Type: BLOOD SPECIMENOrdering Facility: [facility] Address: [address] [place] [address] Performed By: #### 2 4323-8, 05857-6 ####[facility] [id number] [place] [address] [place] Iron binding capacity [Mass/Vol] 253 ug/dL Normal 232-386 [facility] Comment on above: Order Comment: Speci men Type: BLOOD SPECIMENOrdering Facility: [facility] Address: [address] [place] [address] Performed By: #### 2 4323-8, 55941-5 ####[facility] [id number] [address] [place] Iron/TIBC [Molar ratio] 27.3 % Normal 15.0-57.0 [facility] Comment on above: Order Comment: Speci men Type: BLOOD SPECIMENOrdering Facility: [facility] Address: [address] [place] [address] Performed By: #### 2 4323-8, 54876-1 ####[facility] [id number] [place] [address] [place] TSH SerPl-aCncon 06-29-2025 TSH Qn 0.392 m[IU]/L Normal 0.270-4.20 0 [facility] Comment on above: Order Comment: Speci men Type: BLOOD SPECIMENOrdering Facility: [facility] Address: [address] [place] [address] Performed By: #### 2 276-4, 3016-3 ####[place] [id number] [place] [address] [place] CBC W Auto Differential pane l (Bld)on 06-15-2025 Basophils (Bld) [#/Vol] 10*3/uL Normal <0.11 [facility] Comment on above: Order Comment: Speci men Type: BLOOD SPECIMENOrdering Facility: [facility] Address: [address] [place] [address] Performed By: #### 5 7021-8 ####[facility] [id number] [place] [address] [place] Basophils/100 WBC (Bld) 0.4 % Normal [facility] Comment on above: Order Comment: Speci men Type: BLOOD SPECIMENOrdering Facility: [facility] Address: [address] [place] [address] Performed By: #### 5 7021-8 ####[facility] [id number] [place] [address] [place] Differential cell count method Nom (Bld) Auto Normal [facility] Comment on above: Order Comment: Speci men Type: BLOOD SPECIMENOrdering Facility: [facility] Address: [address] [place] [address] Performed By: #### 5 7021-8 ####[facility] [id number] [place] [address] [place] Eosinophils (Bld) [#/Vol] 0.06 10*3/uL Normal <0.46 [facility] Comment on above: Order Comment: Speci men Type: BLOOD SPECIMENOrdering Facility: [facility] Address: [address] [place] [address] Performed By: #### 5 7021-8 ####[facility] [id number] [place] [address] [place] Eosinophils/100 WBC (Bld) 2.1 % Normal [facility] Comment on above: Order Comment: Speci men Type: BLOOD SPECIMENOrdering Facility: [facility] Address: [address] [place] [address] Performed By: #### 5 7021-8 ####[facility] [id number] [place] [address] [place] Erythrocyte distribution width (RBC) [Ratio] 18.0 % High 11.5-15.0 [facility] Comment on above: Order Comment: Speci men Type: BLOOD SPECIMENOrdering Facility: [facility] Address: [address] [place] [address] Performed By: #### 5 7021-8 ####[facility] [place] [id number] [place] [address] [place] Hematocrit (Bld) [Volume fraction] 35.0 % Low 36.0-46.0 [facility] Comment on above: Order Comment: Speci men Type: BLOOD SPECIMENOrdering Facility: [facility] Address: [address] [place] [address] Performed By: #### 5 7021-8 ####[facility] [id number] [place] [address] [place] Hemoglobin (Bld) [Mass/Vol] 11.6 g/dL Normal 11.5-15.5 [facility] Comment on above: Order Comment: Speci men Type: BLOOD SPECIMENOrdering Facility: [facility] Address: [address] [place] [address] Performed By: #### 5 7021-8 ####[facility] [id number] [place] [address] [place] Immature granulocytes (Bld) [#/Vol] 10*3/uL Normal <0.10 [facility] Comment on above: Order Comment: Speci men Type: BLOOD SPECIMENOrdering Facility: [facility] Address: [address] [place] [address] Performed By: #### 5 7021-8 ####[facility] [id number] [place] [address] [place] Immature granulocytes/100 WBC (Bld) 0.4 % Normal [facility] Comment on above: Order Comment: Speci men Type: BLOOD SPECIMENOrdering Facility: [facility] Address: [address] [place] [address] Performed By: #### 5 7021-8 ####[facility] [id number] [place] [address] [place] Lymphocytes (Bld) [#/Vol] 0.75 10*3/uL Low 1.00-4.00 [facility] Comment on above: Order Comment: Speci men Type: BLOOD SPECIMENOrdering Facility: [facility] Address: [address] [place] [address] Performed By: #### 5 7021-8 ####[facility] [id number] [place] [address] [place] Lymphocytes/100 WBC (Bld) 26.4 % Normal [facility] Comment on above: Order Comment: Speci men Type: BLOOD SPECIMENOrdering Facility: [facility] Address: [address] [place] [address] Performed By: #### 5 7021-8 ####[facility] [id number] [place] [address] [place] MCH (RBC) [Entitic mass] 28.6 pg Normal 26.0-34.0 [facility] Comment on above: Order Comment: Speci men Type: BLOOD SPECIMENOrdering Facility: [facility] Address: [address] [place] [address] Performed By: #### 5 7021-8 ####[facility] [place] [id number] [place] [address] [place] MCHC (RBC) [Mass/Vol] 33.1 g/dL Normal 30.5-36.0 [facility] Comment on above: Order Comment: Speci men Type: BLOOD SPECIMENOrdering Facility: [facility] Address: [address] [place] [address] Performed By: #### 5 7021-8 ####[facility] [place] [id number] [place] [address] [place] MCV (RBC) [Entitic vol] 86.4 fL Normal 80.0-100.0 [facility] Comment on above: Order Comment: Speci men Type: BLOOD SPECIMENOrdering Facility: [facility] Address: [address] [place] [address] Performed By: #### 5 7021-8 ####[facility] [id number] [place] [address] [place] Monocytes (Bld) [#/Vol] 0.61 10*3/uL Normal <0.87 [facility] Comment on above: Order Comment: Speci men Type: BLOOD SPECIMENOrdering Facility: [facility] Address: [address] [place] [address] Performed By: #### 5 7021-8 ####[facility] [id number] [place] [address] [place] Monocytes/100 WBC (Bld) 21.5 % Normal [facility] Comment on above: Order Comment: Speci men Type: BLOOD SPECIMENOrdering Facility: [facility] Address: [address] [place] [address] Performed By: #### 5 7021-8 ####[facility] [id number] [place] [address] [place] Neutrophils (Bld) [#/Vol] 1.40 10*3/uL Low 1.45-7.50 [facility] Comment on above: Order Comment: Speci men Type: BLOOD SPECIMENOrdering Facility: [facility] Address: [address] [place] [address] Performed By: #### 5 7021-8 ####[facility] [place] [id number] [place] [address] [place] Neutrophils/100 WBC (Bld) 49.2 % Normal [facility] Comment on above: Order Comment: Speci men Type: BLOOD SPECIMENOrdering Facility: [facility] Address: [address] [place] [address] Performed By: #### 5 7021-8 ####[facility] [id number] [place] [address] [place] Nucleated RBC (Bld) [#/Vol] 10*3/uL Normal <0.01 [facility] Comment on above: Order Comment: Speci men Type: BLOOD SPECIMENOrdering Facility: [facility] Address: [address] [place] [address] Performed By: #### 5 7021-8 ####[facility] [id number] [place] [address] [place] Nucleated RBC/100 WBC (Bld) [Ratio] 0.0 /100 WBC Normal [facility] Comment on above: Order Comment: Speci men Type: BLOOD SPECIMENOrdering Facility: [facility] Address: [address] [place] [address] Performed By: #### 5 7021-8 ####[facility] [id number] [place] [address] [place] Platelet mean volume (Bld) [Entitic vol] 9.5 fL Normal 9.0-12.7 [facility] Comment on above: Order Comment: Speci men Type: BLOOD SPECIMENOrdering Facility: [facility] Address: [address] [place] [address] Performed By: #### 5 7021-8 ####[facility] [place] [id number] [place] [address] [place] Platelets (Bld) [#/Vol] 122 10*3/uL Low 150-400 [facility] Comment on above: Order Comment: Speci men Type: BLOOD SPECIMENOrdering Facility: [facility] Address: [address] [place] [address] Performed By: #### 5 7021-8 ####[facility] [place] [id number] [place] [address] [place] RBC (Bld) [#/Vol] 4.05 10*6/uL Normal 3.90-5.20 [facility] Comment on above: Order Comment: Speci men Type: BLOOD SPECIMENOrdering Facility: [facility] Address: [address] [place] [address] Performed By: #### 5 7021-8 ####[facility] [id number] [place] [address] [place] WBC (Bld) [#/Vol] 2.84 10*3/uL Low 3.70-11.00 [facility] Comment on above: Order Comment: Speci men Type: BLOOD SPECIMENOrdering Facility: [facility] Address: [address] [place] [address] Performed By: #### 5 7021-8 ####[facility] [place] [id number] [place] [address] [place] CEA SerPl-mCncon 06-15-2025 Carcinoembryonic Ag [Mass/Vol] 2.0 ng/mL Normal <=2.9 [facility] Comment on above: Order Comment: Speci men Type: BLOOD SPECIMENOrdering Facility: [facility] Address: [address] [place] [address] Result Comment: Carc inoembryonic antigen test is used as an aid in monitoring response to treatment or recurrence in patients with established colorectal, breast, lung, prostatic, pancreatic, and ovarian carcinomas. Clinical correlation is required.The Carcinoembryonic antigen test was performed using the [employer] DXI paramagnetic particle chemiluminescent immunoassay method. Results obtained with different assay methods or kits cannot be used interchangeably. Performed By: #### 2 039-6 ####[facility] [id number] [place] [address] [place] CNOVSPon 06-15-2025 CNOVSP Normal [facility] Comprehensive metabolic 2000 panelon 06-15-2025 Albumin [Mass/Vol] 4.0 g/dL Normal 3.9-4.9 [facility] Comment on above: Order Comment: Speci men Type: BLOOD SPECIMENOrdering Facility: [facility] Address: [address] [place] [address] Performed By: #### 2 4323-8 ####[facility] [id number] [place] [address] [place] ALP [Catalytic activity/Vol] 100 U/L Normal 34-123 [facility] Comment on above: Order Comment: Speci men Type: BLOOD SPECIMENOrdering Facility: [facility] Address: [address] [place] [address] Performed By: #### 2 4323-8 ####[facility] [id number] [place] [id number] [place] ALT [Catalytic activity/Vol] 26 U/L Normal 7-38 [facility] Comment on above: Order Comment: Speci men Type: BLOOD SPECIMENOrdering Facility: [facility] Address: [address] [place] [address] Performed By: #### 2 4323-8 ####[facility] [id number] [place] [address] [place] Anion gap [Moles/Vol] 13 mmol/L Normal 8-15 [facility] Comment on above: Order Comment: Speci men Type: BLOOD SPECIMENOrdering Facility: [facility] Address: [address] [place] [address] Performed By: #### 2 4323-8 ####[facility] [id number] [place] [address] [place] AST [Catalytic activity/Vol] 27 U/L Normal 13-35 [facility] Comment on above: Order Comment: Speci men Type: BLOOD SPECIMENOrdering Facility: [facility] Address: [address] [place] [address] Performed By: #### 2 4323-8 ####[facility] [id number] [place] [address] [place] Bilirubin [Mass/Vol] 0.4 mg/dL Normal 0.2-1.3 [facility] Comment on above: Order Comment: Speci men Type: BLOOD SPECIMENOrdering Facility: [facility] Address: [address] [place], [place] [address] Performed By: #### 2 4323-8 ####[facility] [id number] [place] [address] [place] Calcium [Mass/Vol] 9.1 mg/dL Normal 8.5-10.2 [facility] Comment on above: Order Comment: Speci men Type: BLOOD SPECIMENOrdering Facility: [facility] Address: [address] [place] [address] Performed By: #### 2 4323-8 ####[facility] [id number] [place] [address] [place] Chloride [Moles/Vol] 104 mmol/L Normal 98-107 [facility] Comment on above: Order Comment: Speci men Type: BLOOD SPECIMENOrdering Facility: [facility] Address: [address] [place] [address] Performed By: #### 2 4323-8 ####[facility] [id number] [place] [address] [place] CO2 [Moles/Vol] 23 mmol/L Normal 22-30 [facility] Comment on above: Order Comment: Speci men Type: BLOOD SPECIMENOrdering Facility: [facility] Address: [address] [place] [address] Performed By: #### 2 4323-8 ####[facility] [id number] [place] [address] [place] Creatinine [Mass/Vol] 0.53 mg/dL Low 0.58-0.96 [facility] Comment on above: Order Comment: Speci men Type: BLOOD SPECIMENOrdering Facility: [facility] Address: [address] [place] [address] Performed By: #### 2 4323-8 ####[facility] [id number] [place] [address] [place] eGFRcr SerPlBld CKD-EPI 2020 99 mL/min/1.73m??? Normal >=60 [facility] Comment on above: Order Comment: Speci men Type: BLOOD SPECIMENOrdering Facility: [facility] Address: [address] [place] [address] Result Comment: Lupe mated Glomerular Filtration Rate [...] actual GFR. Performed By: #### 2 4323-8 ####[facility] [id number] [place] [address] [place] Glucose [Mass/Vol] 107 mg/dL High 74-99 [facility] Comment on above: Order Comment: Sonia little Type: BLOOD SPECIMENOrdering Facility: [facility] Address: [address] [place] [address] Result Comment: The [place] Diabetes Association (ADA) provides guidance for cutoff values for fasting glucose and random glucose. The ADA defines fasting as no caloric intake for at least 8 hours. Fasting plasma glucose results between 100 to 125 mg/dL indicate increased risk for diabetes (prediabetes).Fasting plasma glucose results greater than or equal to 126 mg/dL meet the criteria for diagnosis of diabetes. In the absence of unequivocal hyperglycemia, results should be confirmed by repeat testing. In a patient with classic symptoms of hyperglycemia or hyperglycemic crisis, random plasma glucose results greater than or equal to 200 mg/dL meet the criteria for diagnosis of diabetes.Reference: Standards of Medical Care in Diabetes 2016, [place] [employer]. Diabetes Care. 2016.39(Suppl 1). Performed By: #### 2 4323-8 ####[facility] [id number] [place] [address] [place] Potassium [Moles/Vol] 3.2 mmol/L Low 3.7-5.1 [facility] Comment on above: Order Comment: Sonia little Type: BLOOD SPECIMENOrdering Facility: [facility] Address: [address] [id number] Performed By: #### 2 4323-8 ####[facility] [id number] [place] [address] [place] Protein [Mass/Vol] 6.3 g/dL Normal 6.3-8.0 [facility] Comment on above: Order Comment: Speci men Type: BLOOD SPECIMENOrdering Facility: [facility] Address: [address] [place] [address] Performed By: #### 2 4323-8 ####[facility] [id number] [place] [address] [place] Sodium [Moles/Vol] 140 mmol/L Normal 136-144 [facility] Comment on above: Order Comment: Speci men Type: BLOOD SPECIMENOrdering Facility: [facility] Address: [address] [place] [address] Performed By: #### 2 4323-8 ####[facility] [id number] [place] [address] [place] Urea nitrogen [Mass/Vol] 6 mg/dL Low 7-21 [facility] Comment on above: Order Comment: Speci men Type: BLOOD SPECIMENOrdering Facility: [facility] Address: [address] [place] [address] Performed By: #### 2 4323-8 ####[facility] [id number] [place] [address] [place] TSH SerPl-aCncon 06-15-2025 TSH Qn 10.300 m[IU]/L High 0.270-4.20 0 [facility] Comment on above: Order Comment: Speci men Type: BLOOD SPECIMENOrdering Facility: [facility] Address: [address] [place] [address] Performed By: #### 3 016-3 ####[facility] [id number] [place] [address] [place] AVASTIN (BEVACIZUMAB) 1.25MG INTRAVITREAL INJECTION OS (LEFT EYE)on 06-07-2025 [facility] OCT MACULA CIRRUS OU (BOTH E YES)on 06-07-2025 [facility] Radiology Study observation (narrative) [facility] CNPNon 06-04-2025 CNPN Normal [facility] CBC W Auto Differential pane l (Bld)on 06-01-2025 Basophils (Bld) [#/Vol] [facility] Basophils/100 WBC (Bld) 0.4 % [facility] Differential cell count method Nom (Bld) Auto [facility] Eosinophils (Bld) [#/Vol] 0.07 10*3/uL [facility] Eosinophils/100 WBC (Bld) 2.6 % [facility] Erythrocyte distribution width (RBC) [Ratio] 17.9 % High 11.5 - 15.0 % [facility] Hematocrit (Bld) [Volume fraction] 35.8 % Low 36.0 - 46.0 % [facility] Hemoglobin (Bld) [Mass/Vol] 11.7 g/dL 11.5 - 15.5 g/dL [facility] Immature granulocytes (Bld) [#/Vol] [facility] Immature granulocytes/100 WBC (Bld) 0.4 % [facility] Interpretation and review of laboratory results Abnormal [facility] Lymphocytes (Bld) [#/Vol] 0.83 10*3/uL Low [facility] Lymphocytes/100 WBC (Bld) 31.2 % [facility] MCH (RBC) [Entitic mass] 27.9 pg 26.0 - 34.0 pg [facility] MCHC (RBC) [Mass/Vol] 32.7 g/dL 30.5 - 36.0 g/dL [facility] MCV (RBC) [Entitic vol] 85.2 fL 80.0 - 100.0 fL [facility] Monocytes (Bld) [#/Vol] 0.35 10*3/uL [facility] Monocytes/100 WBC (Bld) 13.2 % [facility] Neutrophils (Bld) [#/Vol] 1.39 10*3/uL Low [facility] Neutrophils/100 WBC (Bld) 52.2 % [facility] Nucleated RBC (Bld) [#/Vol] [facility] Nucleated RBC/100 WBC (Bld) [Ratio] 0.0 % /100 WBC [facility] Platelet mean volume (Bld) [Entitic vol] 8.9 fL Low 9.0 - 12.7 fL [facility] Platelets (Bld) [#/Vol] 139 10*3/uL Low [facility] RBC (Bld) [#/Vol] 4.20 10*6/uL 3.90 - 5.20 m/uL [facility] WBC (Bld) [#/Vol] 2.66 10*3/uL Low [facility] Basophils (Bld) [#/Vol] 10*3/uL Normal <0.11 [facility] Comment on above: Order Comment: Speci men Type: BLOOD SPECIMENOrdering Facility: [facility] Address: [address] [place] [address] Performed By: #### 5 7021-8 ####[facility] [id number] [place] [address] [place] Basophils/100 WBC (Bld) 0.4 % Normal [facility] Comment on above: Order Comment: Speci men Type: BLOOD SPECIMENOrdering Facility: [facility] Address: [address] [place] [address] Performed By: #### 5 7021-8 ####[facility] [place] [id number] [place] [address] [place] Differential cell count method Nom (Bld) Auto Normal [facility] Comment on above: Order Comment: Speci men Type: BLOOD SPECIMENOrdering Facility: [facility] Address: [address] [place] [address] Performed By: #### 5 7021-8 ####[facility] [place] [id number] [place] [address] [place] Eosinophils (Bld) [#/Vol] 0.07 10*3/uL Normal <0.46 [facility] Comment on above: Order Comment: Speci men Type: BLOOD SPECIMENOrdering Facility: [facility] Address: [address] [place] [address] Performed By: #### 5 7021-8 ####[facility] [id number] [place] [address] [place] Eosinophils/100 WBC (Bld) 2.6 % Normal [facility] Comment on above: Order Comment: Speci men Type: BLOOD SPECIMENOrdering Facility: [facility] Address: [address] [place] [address] Performed By: #### 5 7021-8 ####[facility] [id number] [place] [address] [place] Erythrocyte distribution width (RBC) [Ratio] 17.9 % High 11.5-15.0 [facility] Comment on above: Order Comment: Speci men Type: BLOOD SPECIMENOrdering Facility: [facility] Address: [address] [place] [address] Performed By: #### 5 7021-8 ####[facility] [place] [id number] [place] [address] [place] Hematocrit (Bld) [Volume fraction] 35.8 % Low 36.0-46.0 [facility] Comment on above: Order Comment: Speci men Type: BLOOD SPECIMENOrdering Facility: [facility] Address: [address] [place] [address] Performed By: #### 5 7021-8 ####[facility] [place] [id number] [place] [address] [place] Hemoglobin (Bld) [Mass/Vol] 11.7 g/dL Normal 11.5-15.5 [facility] Comment on above: Order Comment: Speci men Type: BLOOD SPECIMENOrdering Facility: [facility] Address: [address] [place] [address] Performed By: #### 5 7021-8 ####[facility] [place] [id number] [place] [address] [place] Immature granulocytes (Bld) [#/Vol] 10*3/uL Normal <0.10 [facility] Comment on above: Order Comment: Speci men Type: BLOOD SPECIMENOrdering Facility: [facility] Address: [address] [place] [address] Performed By: #### 5 7021-8 ####[facility] [id number] [place] [address] [place] Immature granulocytes/100 WBC (Bld) 0.4 % Normal [facility] Comment on above: Order Comment: Speci men Type: BLOOD SPECIMENOrdering Facility: [facility] Address: [address] [place] [address] Performed By: #### 5 7021-8 ####[facility] [id number] [place] [address] [place] Lymphocytes (Bld) [#/Vol] 0.83 10*3/uL Low 1.00-4.00 [facility] Comment on above: Order Comment: Speci men Type: BLOOD SPECIMENOrdering Facility: [facility] Address: [address] [place] [address] Performed By: #### 5 7021-8 ####[facility] [id number] [place] [address] [place] Lymphocytes/100 WBC (Bld) 31.2 % Normal [facility] Comment on above: Order Comment: Speci men Type: BLOOD SPECIMENOrdering Facility: [facility] Address: [address] [place] [address] Performed By: #### 5 7021-8 ####[facility] [place] [id number] [place] [address] [place] MCH (RBC) [Entitic mass] 27.9 pg Normal 26.0-34.0 [facility] Comment on above: Order Comment: Speci men Type: BLOOD SPECIMENOrdering Facility: [facility] Address: [address] [place] [address] Performed By: #### 5 7021-8 ####[facility] [id number] [place] [address] [place] MCHC (RBC) [Mass/Vol] 32.7 g/dL Normal 30.5-36.0 [facility] Comment on above: Order Comment: Speci men Type: BLOOD SPECIMENOrdering Facility: [facility] Address: [address] [place] [address] Performed By: #### 5 7021-8 ####[facility] [id number] [place] [address] [place] MCV (RBC) [Entitic vol] 85.2 fL Normal 80.0-100.0 [facility] Comment on above: Order Comment: Speci men Type: BLOOD SPECIMENOrdering Facility: [facility] Address: [address] [place] [address] Performed By: #### 5 7021-8 ####[facility] [place] [id number] [place] [address] [place] Monocytes (Bld) [#/Vol] 0.35 10*3/uL Normal <0.87 [facility] Comment on above: Order Comment: Speci men Type: BLOOD SPECIMENOrdering Facility: [facility] Address: [address] [place] [address] Performed By: #### 5 7021-8 ####[facility] [place] [id number] [place] [address] [place] Monocytes/100 WBC (Bld) 13.2 % Normal [facility] Comment on above: Order Comment: Speci men Type: BLOOD SPECIMENOrdering Facility: [facility] Address: [address] [place] [address] Performed By: #### 5 7021-8 ####[facility] [id number] [place] [address] [place] Neutrophils (Bld) [#/Vol] 1.39 10*3/uL Low 1.45-7.50 [facility] Comment on above: Order Comment: Speci men Type: BLOOD SPECIMENOrdering Facility: [facility] Address: [address] [place] [address] Performed By: #### 5 7021-8 ####[facility] [id number] [place] [address] [place] Neutrophils/100 WBC (Bld) 52.2 % Normal [facility] Comment on above: Order Comment: Speci men Type: BLOOD SPECIMENOrdering Facility: [facility] Address: [address] [place] [address] Performed By: #### 5 7021-8 ####[facility] [id number] [place] [address] [place] Nucleated RBC (Bld) [#/Vol] 10*3/uL Normal <0.01 [facility] Comment on above: Order Comment: Speci men Type: BLOOD SPECIMENOrdering Facility: [facility] Address: [address] [place] [address] Performed By: #### 5 7021-8 ####[facility] [place] [id number] [place] [address] [place] Nucleated RBC/100 WBC (Bld) [Ratio] 0.0 /100 WBC Normal [facility] Comment on above: Order Comment: Speci men Type: BLOOD SPECIMENOrdering Facility: [facility] Address: [address] [place] [address] Performed By: #### 5 7021-8 ####[facility] [id number] [place] [address] [place] Platelet mean volume (Bld) [Entitic vol] 8.9 fL Low 9.0-12.7 [facility] Comment on above: Order Comment: Speci men Type: BLOOD SPECIMENOrdering Facility: [facility] Address: [address] [place] [address] Performed By: #### 5 7021-8 ####[facility] [id number] [address] [id number] [address] [place] Platelets (Bld) [#/Vol] 139 10*3/uL Low 150-400 [facility] Comment on above: Order Comment: Speci men Type: BLOOD SPECIMENOrdering Facility: [facility] Address: [address] [place] [address] Performed By: #### 5 7021-8 ####[facility] [id number] [place] [address] [place] RBC (Bld) [#/Vol] 4.20 10*6/uL Normal 3.90-5.20 [facility] Comment on above: Order Comment: Speci men Type: BLOOD SPECIMENOrdering Facility: [facility] Address: [address] [place] [address] Performed By: #### 5 7021-8 ####[facility] [id number] [place] [address] [place] WBC (Bld) [#/Vol] 2.66 10*3/uL Low 3.70-11.00 [facility] Comment on above: Order Comment: Speci men Type: BLOOD SPECIMENOrdering Facility: [facility] Address: [address] [place] [address] Performed By: #### 5 7021-8 ####[facility] [id number] [place] [address] [place] CEA SerPl-mCncon 06-01-2025 Carcinoembryonic Ag [Mass/Vol] 2.2 ng/mL Normal <=2.9 [facility] Comment on above: Order Comment: Speci men Type: BLOOD SPECIMENOrdering Facility: [facility] Address: [address] [place] [address] Result Comment: Carc inoembryonic antigen test is used as an aid in monitoring response to treatment or recurrence in patients with established colorectal, breast, lung, prostatic, pancreatic, and ovarian carcinomas. Clinical correlation is required.The Carcinoembryonic antigen test was performed using the APSX Unicel DXI paramagnetic particle chemiluminescent immunoassay method. Results obtained with different assay methods or kits cannot be used interchangeably. Performed By: #### 2 4108-3, 2039-02 ####[facility] [id number] [address] [place] CNOVSPon 06-01-2025 CNOVSP Normal [facility] Cancer Ag19-9 SerPl-aCncon 0 06-01-2025 Cancer Ag 19-9 Qn 75.0 [arb'U]/mL High <36.0 [facility] Comment on above: Order Comment: Speci men Type: BLOOD SPECIMENOrdering Facility: [facility] Address: [address] [place] [address] Result Comment: [facility] er antigen 19-9 test is used as an aid in monitoring response to treatment or recurrence in patients with established pancreatic, hepatobiliary, or gastrointestinal malignancies. Clinical correlation is required.The CA 19-9 Antigen test was performed using the APSX Unicel DXI paramagnetic particle chemiluminescent immunoassay method. Results obtained with different assay methods or kits cannot be used interchangeably. Performed By: #### 2 4108-3, 2039-02 ####[facility] [id number] [address] [place] Comprehensive metabolic 2000 panelon 06-01-2025 Albumin [Mass/Vol] 4.1 g/dL 3.9 - 4.9 g/dL [facility] ALP [Catalytic activity/Vol] 108 U/L 34 - 123 U/L [facility] ALT [Catalytic activity/Vol] 43 U/L High 7 - 38 U/L [facility] Anion gap [Moles/Vol] 12 mmol/L 8 - 15 mmol/L [facility] AST [Catalytic activity/Vol] 54 U/L High 13 - 35 U/L [facility] Bilirubin [Mass/Vol] 0.4 mg/dL 0.2 - 1 .3 mg/dL [facility] Calcium [Mass/Vol] 9.1 mg/dL 8.5 - 10. 2 mg/dL [facility] Chloride [Moles/Vol] 105 mmol/L 98 - 10 7 mmol/L [facility] CO2 [Moles/Vol] 24 mmol/L 22 - 30 mmol/L [facility] Creatinine [Mass/Vol] 0.54 mg/dL Low 0.58 - 0.96 mg/dL [facility] GFR/1.73 sq M.predicted among non-blacks MDRD (S/P/Bld) [Vol rate/Area] 99 mL/min/{1.73_m2} - PINF [facility] Comment on above: Estimated Glomerular Filtration Rate (eGFR) is calculated using the 2020 CKD-EPI creatinine equation. This equation utilizes serum creatinine, sex, and age as parameters. The creatinine assay has traceable calibration to isotope dilution-mass spectrometry. Refer to KDIGO guidelines for clinical interpretation. In patients with unstable renal function, e.g. those with acute kidney injury, the eGFR may not accurately reflect actual GFR. Glucose [Mass/Vol] 135 mg/dL High 74 - 99 mg/dL [facility] Comment on above: The [place] [employer] (ADA) provides guidance for cutoff values [...] Standards of Medical Care in Diabetes 2016, [place] [employer]. Diabetes Care. 2016.39(Suppl 1). Interpretation and review of laboratory results Abnormal [facility] Potassium [Moles/Vol] 4.0 mmol/L 3.7 - 5.1 mmol/L [facility] Protein [Mass/Vol] 6.4 g/dL 6.3 - 8.0 g/dL [facility] Sodium [Moles/Vol] 141 mmol/L 136 - 144 mmol/L [facility] Urea nitrogen [Mass/Vol] 6 mg/dL Low 7 - 21 mg/dL [facility] Albumin [Mass/Vol] 4.1 g/dL Normal 3.9-4.9 [facility] Comment on above: Order Comment: Speci men Type: BLOOD SPECIMENOrdering Facility: [facility] Address: [address] [place] [address] Performed By: #### 2 4323-8, 51528-2 ####[facility] [id number] [place] [address] [place] ALP [Catalytic activity/Vol] 108 U/L Normal 34-123 [facility] Comment on above: Order Comment: Speci men Type: BLOOD SPECIMENOrdering Facility: [facility] Address: [address] [place] [address] Performed By: #### 2 4323-8, 56938-9 ####[facility] [id number] [place] [address] [place] ALT [Catalytic activity/Vol] 43 U/L High 7-38 [facility] Comment on above: Order Comment: Speci men Type: BLOOD SPECIMENOrdering Facility: [facility] Address: [address] [place] [address] Performed By: #### 2 4323-8, 00745-8 ####[facility] [id number] [place] [address] [place] Anion gap [Moles/Vol] 12 mmol/L Normal 8-15 [facility] Comment on above: Order Comment: Speci men Type: BLOOD SPECIMENOrdering Facility: [facility] Address: [address] [place] [address] Performed By: #### 2 4323-8, 20332-3 ####[facility] [id number] [place] [address] [place] AST [Catalytic activity/Vol] 54 U/L High 13-35 [facility] Comment on above: Order Comment: Speci men Type: BLOOD SPECIMENOrdering Facility: [facility] Address: [address] [place] [address] Performed By: #### 2 4323-8, 83832-5 ####[facility] [id number] [place] [address] [place] Bilirubin [Mass/Vol] 0.4 mg/dL Normal 0.2-1.3 [facility] Comment on above: Order Comment: Speci men Type: BLOOD SPECIMENOrdering Facility: [facility] Address: [address] [place] [address] Performed By: #### 2 4323-8, 32552-7 ####[facility] [place] [id number] [place] [address] [place] Calcium [Mass/Vol] 9.1 mg/dL Normal 8.5-10.2 [facility] Comment on above: Order Comment: Speci men Type: BLOOD SPECIMENOrdering Facility: [facility] Address: [address] [place] [address] Performed By: #### 2 4323-8, 04530-5 ####[facility] [place] [id number] [place] [address] [place] Chloride [Moles/Vol] 105 mmol/L Normal 98-107 [facility] Comment on above: Order Comment: Speci men Type: BLOOD SPECIMENOrdering Facility: [facility] Address: [address] [place] [address] Performed By: #### 2 4323-8, 99002-6 ####[facility] [id number] [place] [address] [place] CO2 [Moles/Vol] 24 mmol/L Normal 22-30 [facility] Comment on above: Order Comment: Speci men Type: BLOOD SPECIMENOrdering Facility: [facility] Address: [address] [place] [address] Performed By: #### 2 4323-8, 73185-2 ####[facility] [id number] [place] [address] [place] Creatinine [Mass/Vol] 0.54 mg/dL Low 0.58-0.96 [facility] Comment on above: Order Comment: Sonia little Type: BLOOD SPECIMENOrdering Facility: [facility] Address: [address] [place] [address] Performed By: #### 2 4323-8, 79078-6 ####[facility] [id number] [place] [address] [place] eGFRcr SerPlBld CKD-EPI 202 99 mL/min/1.73m??? Normal >=60 [facility] Comment on above: Order Comment: Sonia little Type: BLOOD SPECIMENOrdering Facility: [facility] Address: [address] [place] [address] Result Comment: Lupe mated Glomerular Filtration Rate [...] reflect actual GFR. Performed By: #### 2 4323-8, 79573-9 ####[facility] [id number] [place] [address] [place] Glucose [Mass/Vol] 135 mg/dL High 74-99 [facility] Comment on above: Order Comment: Sonia little Type: BLOOD SPECIMENOrdering Facility: [facility] Address: [address] [place] [address] Result Comment: The [place] [employer] (ADA) provides guidance for cutoff values for fasting glucose and random glucose. The ADA defines fasting as no caloric intake for at least 8 hours. Fasting plasma glucose results between 100 to 125 mg/dL indicate increased risk for diabetes (prediabetes).Fasting plasma glucose results greater than or equal to 126 mg/dL meet the criteria for diagnosis of diabetes. In the absence of unequivocal hyperglycemia, results should be confirmed by repeat testing. In a patient with classic symptoms of hyperglycemia or hyperglycemic crisis, random plasma glucose results greater than or equal to 200 mg/dL meet the criteria for diagnosis of diabetes.Reference: Standards of Medical Care in Diabetes 2016, [place] [employer]. Diabetes Care. 2016.39(Suppl 1). Performed By: #### 2 4323-8, 65818-7 ####[facility] [id number] [place] [address] [place] Potassium [Moles/Vol] 4.0 mmol/L Normal 3.7-5.1 [facility] Comment on above: Order Comment: Speci men Type: BLOOD SPECIMENOrdering Facility: [facility] Address: [address] [place] [address] Performed By: #### 2 4323-8, 78893-7 ####[facility] [id number] [place] [address] [place] Protein [Mass/Vol] 6.4 g/dL Normal 6.3-8.0 [facility] Comment on above: Order Comment: Speci men Type: BLOOD SPECIMENOrdering Facility: [facility] Address: [address] [place] [address] Performed By: #### 2 4323-8, 28184-5 ####[facility] [id number] [place] [address] [place] Sodium [Moles/Vol] 141 mmol/L Normal 136-144 [facility] Comment on above: Order Comment: Speci men Type: BLOOD SPECIMENOrdering Facility: [facility] Address: [address] [place] [address] Performed By: #### 2 4323-8, 91181-1 ####[facility] [id number] [place] [address] [place] Urea nitrogen [Mass/Vol] 6 mg/dL Low 7-21 [facility] Comment on above: Order Comment: Speci men Type: BLOOD SPECIMENOrdering Facility: [facility] Address: [address] [place] [address] Performed By: #### 2 4323-8, 44200-8 ####[facility] [id number] [place] [address] [place] FERRITINon 06-01-2025 Ferritin [Mass/Vol] 726.0 ng/mL High 14.7 - 205.1 ng/mL [facility] Ferritin SerPl-mCncon 2024 Ferritin [Mass/Vol] 726.0 ng/mL High 14.7-205.1 [facility] Comment on above: Order Comment: Speci men Type: BLOOD SPECIMENOrdering Facility: [facility] Address: [address] [place] [address] Performed By: #### 2 276-4, 3016-3 ####[facility] [id number] [place] [address] [place] Iron and Iron binding capaci ty panelon 06-01-2025 Interpretation and review of laboratory results Normal [facility] Iron [Mass/Vol] 77 ug/dL 41 - 186 ug/dL [facility] Iron binding capacity [Mass/Vol] 263 ug/dL 232 - 386 ug/dL [facility] Iron/TIBC [Molar ratio] 29.3 % 15.0 - 57.0 % [facility] Iron [Mass/Vol] 77 ug/dL Normal 41-186 [facility] Comment on above: Order Comment: Speci men Type: BLOOD SPECIMENOrdering Facility: [facility] Address: [address] [place] [address] Performed By: #### 2 4323-8, 41326-8 ####[facility] [id number] [place] [address] [place] Iron binding capacity [Mass/Vol] 263 ug/dL Normal 232-386 [facility] Comment on above: Order Comment: Speci men Type: BLOOD SPECIMENOrdering Facility: [facility] Address: [address] [place] [address] Performed By: #### 2 4323-8, 61945-5 ####[facility] [id number] [place] [address] [place] Iron/TIBC [Molar ratio] 29.3 % Normal 15.0-57.0 [facility] Comment on above: Order Comment: Speci men Type: BLOOD SPECIMENOrdering Facility: [facility] Address: [address] [place] [address] Performed By: #### 2 4323-8, 97606-4 ####[facility] [id number] [place] [address] [place] No Panel Informationon 06-01 Interpretation and review of laboratory results Abnormal [facility] THYROID STIMULATING HORMONEo n 06-01-2025 TSH Qn 14.400 m[IU]/L High [facility] TSH SerPl-aCncon 06-01-2025 TSH Qn 14.400 m[IU]/L High 0.270-4.20 0 [facility] Comment on above: Order Comment: Speci men Type: BLOOD SPECIMENOrdering Facility: [facility] Address: [address] [place] [address] Performed By: #### 2 276-4, 3016-3 ####[facility] [id number] [place] [address] [place] CNPNon 05-26-2025 CNPN Normal [facility] CNPNon 05-25-2025 CNPN Normal [facility] CBC W Auto Differential pane l (Bld)on 05-18-2025 Basophils (Bld) [#/Vol] [facility] Basophils/100 WBC (Bld) 0.5 % [facility] Differential cell count method Nom (Bld) Auto [facility] Eosinophils (Bld) [#/Vol] 0.10 10*3/uL [facility] Eosinophils/100 WBC (Bld) 2.6 % [facility] Erythrocyte distribution width (RBC) [Ratio] 17.5 % High 11.5 - 15.0 % [facility] Hematocrit (Bld) [Volume fraction] 36.5 % 36.0 - 46.0 % [facility] Hemoglobin (Bld) [Mass/Vol] 12.5 g/dL 11.5 - 15.5 g/dL [facility] Immature granulocytes (Bld) [#/Vol] 0.06 10*3/uL [facility] Immature granulocytes/100 WBC (Bld) 1.5 % [facility] Interpretation and review of laboratory results Abnormal [facility] Lymphocytes (Bld) [#/Vol] 0.81 10*3/uL Low [facility] Lymphocytes/100 WBC (Bld) 20.8 % [facility] MCH (RBC) [Entitic mass] 28.2 pg 26.0 - 34.0 pg [facility] MCHC (RBC) [Mass/Vol] 34.2 g/dL 30.5 - 36.0 g/dL [facility] MCV (RBC) [Entitic vol] 82.2 fL 80.0 - 100.0 fL [facility] Monocytes (Bld) [#/Vol] 0.49 10*3/uL [facility] Monocytes/100 WBC (Bld) 12.6 % [facility] Neutrophils (Bld) [#/Vol] 2.41 10*3/uL [facility] Neutrophils/100 WBC (Bld) 62.0 % [facility] Nucleated RBC (Bld) [#/Vol] [facility] Nucleated RBC/100 WBC (Bld) [Ratio] 0.0 % /100 WBC [facility] Platelet mean volume (Bld) [Entitic vol] 9.2 fL 9.0 - 12.7 fL [facility] Platelets (Bld) [#/Vol] 155 10*3/uL [facility] RBC (Bld) [#/Vol] 4.44 10*6/uL 3.90 - 5.20 m/uL [facility] WBC (Bld) [#/Vol] 3.89 10*3/uL [facility] Basophils (Bld) [#/Vol] 10*3/uL Normal <0.11 [facility] Comment on above: Order Comment: Speci men Type: BLOOD SPECIMENOrdering Facility: [facility] Address: [address] [place] [address] Performed By: #### 5 7021-8 ####[facility] [id number] [place] [address] [place] Basophils/100 WBC (Bld) 0.5 % Normal [facility] Comment on above: Order Comment: Speci men Type: BLOOD SPECIMENOrdering Facility: [facility] Address: [address] [place] [address] Performed By: #### 5 7021-8 ####[facility] [id number] [place] [address] [place] Differential cell count method Nom (Bld) Auto Normal [facility] Comment on above: Order Comment: Speci men Type: BLOOD SPECIMENOrdering Facility: [facility] Address: [address] [place] [address] Performed By: #### 5 7021-8 ####[facility] [id number] [place] [address] [place] Eosinophils (Bld) [#/Vol] 0.10 10*3/uL Normal <0.46 [facility] Comment on above: Order Comment: Speci men Type: BLOOD SPECIMENOrdering Facility: [facility] Address: [address] [place] [address] Performed By: #### 5 7021-8 ####[facility] [id number] [place] [address] [place] Eosinophils/100 WBC (Bld) 2.6 % Normal [facility] Comment on above: Order Comment: Speci men Type: BLOOD SPECIMENOrdering Facility: [facility] Address: [address] [place] [address] Performed By: #### 5 7021-8 ####[facility] [id number] [place] [address] [place] Erythrocyte distribution width (RBC) [Ratio] 17.5 % High 11.5-15.0 [facility] Comment on above: Order Comment: Speci men Type: BLOOD SPECIMENOrdering Facility: [facility] Address: [address] [place] [address] Performed By: #### 5 7021-8 ####[facility] [id number] [place] [address] [place] Hematocrit (Bld) [Volume fraction] 36.5 % Normal 36.0-46.0 [facility] Comment on above: Order Comment: Speci men Type: BLOOD SPECIMENOrdering Facility: [facility] Address: [address] [place] [address] Performed By: #### 5 7021-8 ####[facility] [id number] [place] [address] [place] Hemoglobin (Bld) [Mass/Vol] 12.5 g/dL Normal 11.5-15.5 [facility] Comment on above: Order Comment: Speci men Type: BLOOD SPECIMENOrdering Facility: [facility] Address: [address] [place] [address] Performed By: #### 5 7021-8 ####[facility] [id number] [place] [address] [place] Immature granulocytes (Bld) [#/Vol] 0.06 10*3/uL Normal <0.10 [facility] Comment on above: Order Comment: Speci men Type: BLOOD SPECIMENOrdering Facility: [facility] Address: [address] [place] [address] Performed By: #### 5 7021-8 ####[facility] [id number] [place] [address] [place] Immature granulocytes/100 WBC (Bld) 1.5 % Normal [facility] Comment on above: Order Comment: Speci men Type: BLOOD SPECIMENOrdering Facility: [facility] Address: [address] [place] [address] Performed By: #### 5 7021-8 ####[facility] [id number] [place] [address] [place] Lymphocytes (Bld) [#/Vol] 0.81 10*3/uL Low 1.00-4.00 [facility] Comment on above: Order Comment: Speci men Type: BLOOD SPECIMENOrdering Facility: [facility] Address: [address] [place] [address] Performed By: #### 5 7021-8 ####[facility] [id number] [place] [address] [place] Lymphocytes/100 WBC (Bld) 20.8 % Normal [facility] Comment on above: Order Comment: Speci men Type: BLOOD SPECIMENOrdering Facility: [facility] Address: [address] [place] [address] Performed By: #### 5 7021-8 ####[facility] [id number] [place] [address] [place] MCH (RBC) [Entitic mass] 28.2 pg Normal 26.0-34.0 [facility] Comment on above: Order Comment: Speci men Type: BLOOD SPECIMENOrdering Facility: [facility] Address: [address] [place] [address] Performed By: #### 5 7021-8 ####[facility] [id number] [address] [place] MCHC (RBC) [Mass/Vol] 34.2 g/dL Normal 30.5-36.0 [facility] Comment on above: Order Comment: Speci men Type: BLOOD SPECIMENOrdering Facility: [facility] Address: [address] [place] [address] Performed By: #### 5 7021-8 ####[facility] [id number] [place] [address] [place] MCV (RBC) [Entitic vol] 82.2 fL Normal 80.0-100.0 [facility] Comment on above: Order Comment: Speci men Type: BLOOD SPECIMENOrdering Facility: [facility] Address: [address] [place] [address] Performed By: #### 5 7021-8 ####[facility] [id number] [place] [address] [place] Monocytes (Bld) [#/Vol] 0.49 10*3/uL Normal <0.87 [facility] Comment on above: Order Comment: Speci men Type: BLOOD SPECIMENOrdering Facility: [facility] Address: [address] [place] [address] Performed By: #### 5 7021-8 ####[facility] [id number] [place] [address] [place] Monocytes/100 WBC (Bld) 12.6 % Normal [facility] Comment on above: Order Comment: Speci men Type: BLOOD SPECIMENOrdering Facility: [facility] Address: [address] [place] [address] Performed By: #### 5 7021-8 ####[facility] [id number] [place] [address] [place] Neutrophils (Bld) [#/Vol] 2.41 10*3/uL Normal 1.45-7.50 [facility] Comment on above: Order Comment: Speci men Type: BLOOD SPECIMENOrdering Facility: [facility] Address: [address] [place] [address] Performed By: #### 5 7021-8 ####[facility] [id number] [place] [address] [place] Neutrophils/100 WBC (Bld) 62.0 % Normal [facility] Comment on above: Order Comment: Speci men Type: BLOOD SPECIMENOrdering Facility: [facility] Address: [address] [place] [address] Performed By: #### 5 7021-8 ####[facility] [id number] [place] [address] [place] Nucleated RBC (Bld) [#/Vol] 10*3/uL Normal <0.01 [facility] Comment on above: Order Comment: Speci men Type: BLOOD SPECIMENOrdering Facility: [facility] Address: [address] [place] [address] Performed By: #### 5 7021-8 ####[facility] [id number] [place] [address] [place] Nucleated RBC/100 WBC (Bld) [Ratio] 0.0 /100 WBC Normal [facility] Comment on above: Order Comment: Speci men Type: BLOOD SPECIMENOrdering Facility: [facility] Address: [address] [place] [address] Performed By: #### 5 7021-8 ####[facility] [id number] [place] [address] [place] Platelet mean volume (Bld) [Entitic vol] 9.2 fL Normal 9.0-12.7 [facility] Comment on above: Order Comment: Speci men Type: BLOOD SPECIMENOrdering Facility: [facility] Address: [address] [place] [address] Performed By: #### 5 7021-8 ####[facility] [place] [place] [id number] [place] [address] [place] Platelets (Bld) [#/Vol] 155 10*3/uL Normal 150-400 [facility] Comment on above: Order Comment: Speci men Type: BLOOD SPECIMENOrdering Facility: [facility] Address: [address] [place] [address] Performed By: #### 5 7021-8 ####[facility] [id number] [place] [address] [place] RBC (Bld) [#/Vol] 4.44 10*6/uL Normal 3.90-5.20 [facility] Comment on above: Order Comment: Speci men Type: BLOOD SPECIMENOrdering Facility: [facility] Address: [address] [place] [address] Performed By: #### 5 7021-8 ####[facility] [id number] [place] [address] [place] WBC (Bld) [#/Vol] 3.89 10*3/uL Normal 3.70-11.00 [facility] Comment on above: Order Comment: Speci men Type: BLOOD SPECIMENOrdering Facility: [facility] Address: [address] [place] [address] Performed By: #### 5 7021-8 ####[facility] [id number] [place] [address] [place] CEA SerPl-mCncon 05-18-2025 Carcinoembryonic Ag [Mass/Vol] 2.1 ng/mL Normal <=2.9 [facility] Comment on above: Order Comment: Speci men Type: BLOOD SPECIMENOrdering Facility: [facility] Address: [address] [place] [address] Result Comment: Carc inoembryonic antigen test is used as an aid in monitoring response to treatment or recurrence in patients with established colorectal, breast, lung, prostatic, pancreatic, and ovarian carcinomas. Clinical correlation is required.The Carcinoembryonic antigen test was performed using the Radha Shawn [employer] DXI paramagnetic particle chemiluminescent immunoassay method. Results obtained with different assay methods or kits cannot be used interchangeably. Performed By: #### 2 039-6, 53170-8 ####[facility] [id number] [place] [address] [place] CNOVSPon 05-18-2025 CNOVSP Normal [facility] Cancer Ag19-9 SerPl-aCncon 0 05-18-2025 Cancer Ag 19-9 Qn 23.0 [arb'U]/mL Normal <36.0 [facility] Comment on above: Order Comment: Speci men Type: BLOOD SPECIMENOrdering Facility: [facility] Address: [address] [place] [address] Result Comment: [facility] er antigen 19-9 test is used as an aid in monitoring response to treatment or recurrence in patients with established pancreatic, hepatobiliary, or gastrointestinal malignancies. Clinical correlation is required.The CA 19-9 Antigen test was performed using the Radha [place] [employer] DXI paramagnetic particle chemiluminescent immunoassay method. Results obtained with different assay methods or kits cannot be used interchangeably. Performed By: #### 2 039-6, 35470-8 ####[facility] LABCLIA [id number] [place] [address] [place] Comprehensive metabolic 2000 panelon 05-18-2025 Albumin [Mass/Vol] 4.1 g/dL 3.9 - 4.9 g/dL [facility] ALP [Catalytic activity/Vol] 109 U/L 34 - 123 U/L [facility] ALT [Catalytic activity/Vol] 45 U/L High 7 - 38 U/L [facility] Anion gap [Moles/Vol] 12 mmol/L 8 - 15 mmol/L [facility] AST [Catalytic activity/Vol] 55 U/L High 13 - 35 U/L [facility] Bilirubin [Mass/Vol] 0.3 mg/dL 0.2 - 1 .3 mg/dL [facility] Calcium [Mass/Vol] 9.3 mg/dL 8.5 - 10. 2 mg/dL [facility] Chloride [Moles/Vol] 104 mmol/L 98 - 10 7 mmol/L [facility] CO2 [Moles/Vol] 24 mmol/L 22 - 30 mmol/L [facility] Creatinine [Mass/Vol] 0.48 mg/dL Low 0.58 - 0.96 mg/dL [facility] GFR/1.73 sq M.predicted among non-blacks MDRD (S/P/Bld) [Vol rate/Area] 101 mL/min/{1.73_m2} - PINF [facility] Comment on above: Estimated Glomerular Filtration Rate (eGFR) is calculated using the 2020 CKD-EPI creatinine equation. This equation utilizes serum creatinine, sex, and age as parameters. The creatinine assay has traceable calibration to isotope dilution-mass spectrometry. Refer to KDIGO guidelines for clinical interpretation. In patients with unstable renal function, e.g. those with acute kidney injury, the eGFR may not accurately reflect actual GFR. Glucose [Mass/Vol] 101 mg/dL High 74 - 99 mg/dL [facility] Comment on above: The [place] [employer] (ADA) provides guidance for cutoff values [...] Standards of Medical Care in Diabetes 2016, [place] [employer]. Diabetes Care. 2016.39(Suppl 1). Interpretation and review of laboratory results Abnormal [facility] Potassium [Moles/Vol] 3.5 mmol/L Low 3.7 - 5.1 mmol/L [facility] Protein [Mass/Vol] 6.5 g/dL 6.3 - 8.0 g/dL [facility] Sodium [Moles/Vol] 140 mmol/L 136 - 144 mmol/L [facility] Urea nitrogen [Mass/Vol] 6 mg/dL Low 7 - 21 mg/dL [facility] Albumin [Mass/Vol] 4.1 g/dL Normal 3.9-4.9 [facility] Comment on above: Order Comment: Speci men Type: BLOOD SPECIMENOrdering Facility: [facility] Address: [address] [place] [address] Performed By: #### 2 4323-8 ####[facility] [id number] [place] [address] [place] ALP [Catalytic activity/Vol] 109 U/L Normal 34-123 [facility] Comment on above: Order Comment: Speci men Type: BLOOD SPECIMENOrdering Facility: [facility] Address: [address] [place] [address] Performed By: #### 2 4323-8 ####[facility] [id number] [place] [address] [place] ALT [Catalytic activity/Vol] 45 U/L High 7-38 [facility] Comment on above: Order Comment: Speci men Type: BLOOD SPECIMENOrdering Facility: [facility] Address: [address] [place] [address] Performed By: #### 2 4323-8 ####[facility] [id number] [place] [address] [place] Anion gap [Moles/Vol] 12 mmol/L Normal 8-15 [facility] Comment on above: Order Comment: Speci men Type: BLOOD SPECIMENOrdering Facility: [facility] Address: [address] [place] [address] Performed By: #### 2 4323-8 ####[facility] [id number] [place] [address] [place] AST [Catalytic activity/Vol] 55 U/L High 13-35 [facility] Comment on above: Order Comment: Speci men Type: BLOOD SPECIMENOrdering Facility: [facility] Address: [address] [place] [address] Performed By: #### 2 4323-8 ####[facility] [id number] [place] [address] [place] Bilirubin [Mass/Vol] 0.3 mg/dL Normal 0.2-1.3 [facility] Comment on above: Order Comment: Speci men Type: BLOOD SPECIMENOrdering Facility: [facility] Address: [address] [place] [address] Performed By: #### 2 4323-8 ####[facility] [id number] [place] [address] [place] Calcium [Mass/Vol] 9.3 mg/dL Normal 8.5-10.2 [facility] Comment on above: Order Comment: Speci men Type: BLOOD SPECIMENOrdering Facility: [facility] Address: [address] [place] [address] Performed By: #### 2 4323-8 ####[facility] [id number] [place] [address] [place] Chloride [Moles/Vol] 104 mmol/L Normal 98-107 [facility] Comment on above: Order Comment: Speci men Type: BLOOD SPECIMENOrdering Facility: [facility] Address: [address] [place] [address] Performed By: #### 2 4323-8 ####[facility] [id number] [place] [address] [place] CO2 [Moles/Vol] 24 mmol/L Normal 22-30 [facility] Comment on above: Order Comment: Speci men Type: BLOOD SPECIMENOrdering Facility: [facility] Address: [address] [place] [address] Performed By: #### 2 4323-8 ####[facility] [id number] [place] [address] [place] Creatinine [Mass/Vol] 0.48 mg/dL Low 0.58-0.96 [facility] Comment on above: Order Comment: Speci men Type: BLOOD SPECIMENOrdering Facility: [facility] Address: [address] [place] [address] Performed By: #### 2 4323-8 ####[facility] [id number] [place] [address] [place] eGFRcr SerPlBld CKD-EPI 2020 101 mL/min/1.73m??? Normal >=60 [facility] Comment on above: Order Comment: Speci men Type: BLOOD SPECIMENOrdering Facility: [facility] Address: [address] [place] [address] Result Comment: Lupe mated Glomerular Filtration Rate [...] actual GFR. Performed By: #### 2 4323-8 ####[facility] [id number] [place] [address] [place] Glucose [Mass/Vol] 101 mg/dL High 74-99 [facility] Comment on above: Order Comment: Sonia little Type: BLOOD SPECIMENOrdering Facility: [facility] Address: [address] [place] [address] Result Comment: The [place] Diabetes Association (ADA) provides guidance for cutoff values for fasting glucose and random glucose. The ADA defines fasting as no caloric intake for at least 8 hours. Fasting plasma glucose results between 100 to 125 mg/dL indicate increased risk for diabetes (prediabetes).Fasting plasma glucose results greater than or equal to 126 mg/dL meet the criteria for diagnosis of diabetes. In the absence of unequivocal hyperglycemia, results should be confirmed by repeat testing. In a patient with classic symptoms of hyperglycemia or hyperglycemic crisis, random plasma glucose results greater than or equal to 200 mg/dL meet the criteria for diagnosis of diabetes.Reference: Standards of Medical Care in Diabetes 2016, [place] [employer]. Diabetes Care. 2016.39(Suppl 1). Performed By: #### 2 4323-8 ####[facility] [id number] [place] [address] [place] Potassium [Moles/Vol] 3.5 mmol/L Low 3.7-5.1 [facility] Comment on above: Order Comment: Sonia little Type: BLOOD SPECIMENOrdering Facility: [facility] Address: [address] [place] [id number] Performed By: #### 2 4323-8 ####[facility] [id number] [place] [address] [place] Protein [Mass/Vol] 6.5 g/dL Normal 6.3-8.0 [facility] Comment on above: Order Comment: Speci men Type: BLOOD SPECIMENOrdering Facility: [facility] Address: [address] [place] [address] Performed By: #### 2 4323-8 ####[facility] [id number] [place] [address] [place] Sodium [Moles/Vol] 140 mmol/L Normal 136-144 [facility] Comment on above: Order Comment: Speci men Type: BLOOD SPECIMENOrdering Facility: [facility] Address: [address] [place] [address] Performed By: #### 2 4323-8 ####[facility] [id number] [place] [address] [place] Urea nitrogen [Mass/Vol] 6 mg/dL Low 7-21 [facility] Comment on above: Order Comment: Speci men Type: BLOOD SPECIMENOrdering Facility: [facility] Address: [address] [place] [address] Performed By: #### 2 4323-8 ####[facility] [id number] [place] [address] [place] Laboratory - Chemistry and C hemistry - challengeon 05-18-2025 TSH Qn 3.160 m[IU]/L [facility] TSH Qnon 05-18-2025 Interpretation and review of laboratory results Normal [facility] TSH SerPl-aCncon 05-18-2025 TSH Qn 3.160 m[IU]/L Normal 0.270-4.20 0 [facility] Comment on above: Order Comment: Speci men Type: BLOOD SPECIMENOrdering Facility: [facility] Address: [address] [place] [address] Performed By: #### 3 016-3 ####[facility] [id number] [place] [address] [place] AVASTIN (BEVACIZUMAB) 1.25MG INTRAVITREAL INJECTION OS (LEFT EYE)on 05-10-2025 [facility] OCT MACULA CIRRUS OU (BOTH E YES)on 05-10-2025 [facility] Radiology Study observation (narrative) [facility] CNOVSPon 05-07-2025 CNOVSP Normal [facility] CBC W Auto Differential pane l (Bld)on 05-04-2025 Basophils (Bld) [#/Vol] [facility] Basophils/100 WBC (Bld) 0.3 % [facility] Differential cell count method Nom (Bld) Auto [facility] Eosinophils (Bld) [#/Vol] 0.15 10*3/uL [facility] Eosinophils/100 WBC (Bld) 2.6 % [facility] Erythrocyte distribution width (RBC) [Ratio] 17.9 % High 11.5 - 15.0 % [facility] Hematocrit (Bld) [Volume fraction] 40.1 % 36.0 - 46.0 % [facility] Hemoglobin (Bld) [Mass/Vol] 12.9 g/dL 11.5 - 15.5 g/dL [facility] Immature granulocytes (Bld) [#/Vol] [facility] Immature granulocytes/100 WBC (Bld) 0.3 % [facility] Interpretation and review of laboratory results Abnormal [facility] Lymphocytes (Bld) [#/Vol] 0.99 10*3/uL Low [facility] Lymphocytes/100 WBC (Bld) 17.1 % [facility] MCH (RBC) [Entitic mass] 27.8 pg 26.0 - 34.0 pg [facility] MCHC (RBC) [Mass/Vol] 32.2 g/dL 30.5 - 36.0 g/dL [facility] MCV (RBC) [Entitic vol] 86.4 fL 80.0 - 100.0 fL [facility] Monocytes (Bld) [#/Vol] 0.43 10*3/uL [facility] Monocytes/100 WBC (Bld) 7.4 % [facility] Neutrophils (Bld) [#/Vol] 4.17 10*3/uL [facility] Neutrophils/100 WBC (Bld) 72.3 % [facility] Nucleated RBC (Bld) [#/Vol] [facility] Nucleated RBC/100 WBC (Bld) [Ratio] 0.0 % /100 WBC [facility] Platelet mean volume (Bld) [Entitic vol] 9.8 fL 9.0 - 12.7 fL [facility] Platelets (Bld) [#/Vol] 161 10*3/uL [facility] RBC (Bld) [#/Vol] 4.64 10*6/uL 3.90 - 5.20 m/uL [facility] WBC (Bld) [#/Vol] 5.78 10*3/uL [facility] Basophils (Bld) [#/Vol] 10*3/uL Normal <0.11 [facility] Comment on above: Order Comment: Speci men Type: BLOOD SPECIMENOrdering Facility: [facility] Address: [address] [place] [address] Performed By: #### 5 7021-8 ####[facility] [id number] [place] [address] [place] Basophils/100 WBC (Bld) 0.3 % Normal [facility] Comment on above: Order Comment: Speci men Type: BLOOD SPECIMENOrdering Facility: [facility] Address: [address] [place] [address] Performed By: #### 5 7021-8 ####[facility] [id number] [place] [address] [place] Differential cell count method Nom (Bld) Auto Normal [facility] Comment on above: Order Comment: Speci men Type: BLOOD SPECIMENOrdering Facility: [facility] Address: [address] [place] [address] Performed By: #### 5 7021-8 ####[facility] [id number] [place] [address] [place] Eosinophils (Bld) [#/Vol] 0.15 10*3/uL Normal <0.46 [facility] Comment on above: Order Comment: Speci men Type: BLOOD SPECIMENOrdering Facility: [facility] Address: [address] [place] [address] Performed By: #### 5 7021-8 ####[facility] [id number] [place] [address] [place] Eosinophils/100 WBC (Bld) 2.6 % Normal [facility] Comment on above: Order Comment: Speci men Type: BLOOD SPECIMENOrdering Facility: [facility] Address: [address] [place] [address] Performed By: #### 5 7021-8 ####[facility] [id number] [place] [address] [place] Erythrocyte distribution width (RBC) [Ratio] 17.9 % High 11.5-15.0 [facility] Comment on above: Order Comment: Speci men Type: BLOOD SPECIMENOrdering Facility: [facility] Address: [address] [place] [address] Performed By: #### 5 7021-8 ####[facility] [id number] [place] [address] [place] Hematocrit (Bld) [Volume fraction] 40.1 % Normal 36.0-46.0 [facility] Comment on above: Order Comment: Speci men Type: BLOOD SPECIMENOrdering Facility: [facility] Address: [address] [place] [address] Performed By: #### 5 7021-8 ####[facility] [id number] [place] [address] [place] Hemoglobin (Bld) [Mass/Vol] 12.9 g/dL Normal 11.5-15.5 [facility] Comment on above: Order Comment: Speci men Type: BLOOD SPECIMENOrdering Facility: [facility] Address: [address] [place] [address] Performed By: #### 5 7021-8 ####[facility] [id number] [place] [address] [place] Immature granulocytes (Bld) [#/Vol] 10*3/uL Normal <0.10 [facility] Comment on above: Order Comment: Speci men Type: BLOOD SPECIMENOrdering Facility: [facility] Address: [address] [place] [address] Performed By: #### 5 7021-8 ####[facility] [id number] [place] [address] [place] Immature granulocytes/100 WBC (Bld) 0.3 % Normal [facility] Comment on above: Order Comment: Speci men Type: BLOOD SPECIMENOrdering Facility: [facility] Address: [address] [place] [address] Performed By: #### 5 7021-8 ####[facility] [id number] [place] [address] [place] Lymphocytes (Bld) [#/Vol] 0.99 10*3/uL Low 1.00-4.00 [facility] Comment on above: Order Comment: Speci men Type: BLOOD SPECIMENOrdering Facility: [facility] Address: [address] [place] [address] Performed By: #### 5 7021-8 ####[facility] [id number] [place] [address] [place] Lymphocytes/100 WBC (Bld) 17.1 % Normal [facility] Comment on above: Order Comment: Speci men Type: BLOOD SPECIMENOrdering Facility: [facility] Address: [address] [place] [address] Performed By: #### 5 7021-8 ####[facility] [id number] [place] [address] [place] MCH (RBC) [Entitic mass] 27.8 pg Normal 26.0-34.0 [facility] Comment on above: Order Comment: Speci men Type: BLOOD SPECIMENOrdering Facility: [facility] Address: [address] [place] [address] Performed By: #### 5 7021-8 ####[facility] [id number] [place] [address] [place] MCHC (RBC) [Mass/Vol] 32.2 g/dL Normal 30.5-36.0 [facility] Comment on above: Order Comment: Speci men Type: BLOOD SPECIMENOrdering Facility: [facility] Address: [address] [place] [address] Performed By: #### 5 7021-8 ####[facility] [id number] [place] [address] [place] MCV (RBC) [Entitic vol] 86.4 fL Normal 80.0-100.0 [facility] Comment on above: Order Comment: Speci men Type: BLOOD SPECIMENOrdering Facility: [facility] Address: [address] [place] [address] Performed By: #### 5 7021-8 ####[facility] [id number] [place] [address] [place] Monocytes (Bld) [#/Vol] 0.43 10*3/uL Normal <0.87 [facility] Comment on above: Order Comment: Speci men Type: BLOOD SPECIMENOrdering Facility: [facility] Address: [address] [place] [address] Performed By: #### 5 7021-8 ####[facility] [id number] [place] [address] [place] Monocytes/100 WBC (Bld) 7.4 % Normal [facility] Comment on above: Order Comment: Speci men Type: BLOOD SPECIMENOrdering Facility: [facility] Address: [address] [place] [address] Performed By: #### 5 7021-8 ####[facility] [id number] [place] [address] [place] Neutrophils (Bld) [#/Vol] 4.17 10*3/uL Normal 1.45-7.50 [facility] Comment on above: Order Comment: Speci men Type: BLOOD SPECIMENOrdering Facility: [facility] Address: [address] [place] [address] Performed By: #### 5 7021-8 ####[facility] [id number] [place] [address] [place] Neutrophils/100 WBC (Bld) 72.3 % Normal [facility] Comment on above: Order Comment: Speci men Type: BLOOD SPECIMENOrdering Facility: [facility] Address: [address] [place] [address] Performed By: #### 5 7021-8 ####[facility] [id number] [place] [address] [place] Nucleated RBC (Bld) [#/Vol] 10*3/uL Normal <0.01 [facility] Comment on above: Order Comment: Speci men Type: BLOOD SPECIMENOrdering Facility: [facility] Address: [address] [place] [address] Performed By: #### 5 7021-8 ####[facility] [id number] [place] [address] [place] Nucleated RBC/100 WBC (Bld) [Ratio] 0.0 /100 WBC Normal [facility] Comment on above: Order Comment: Speci men Type: BLOOD SPECIMENOrdering Facility: [facility] Address: [address] [place] [address] Performed By: #### 5 7021-8 ####[facility] [id number] [place] [address] [place] Platelet mean volume (Bld) [Entitic vol] 9.8 fL Normal 9.0-12.7 [facility] Comment on above: Order Comment: Speci men Type: BLOOD SPECIMENOrdering Facility: [facility] Address: [address] [place] [address] Performed By: #### 5 7021-8 ####[facility] [id number] [place] [address] [place] Platelets (Bld) [#/Vol] 161 10*3/uL Normal 150-400 [facility] Comment on above: Order Comment: Speci men Type: BLOOD SPECIMENOrdering Facility: [facility] Address: [address] [place] [address] Performed By: #### 5 7021-8 ####[facility] [id number] [place] [address] [place] RBC (Bld) [#/Vol] 4.64 10*6/uL Normal 3.90-5.20 [facility] Comment on above: Order Comment: Speci men Type: BLOOD SPECIMENOrdering Facility: [facility] Address: [address] [place] [address] Performed By: #### 5 7021-8 ####[facility] [id number] [place] [address] [place] WBC (Bld) [#/Vol] 5.78 10*3/uL Normal 3.70-11.00 [facility] Comment on above: Order Comment: Speci men Type: BLOOD SPECIMENOrdering Facility: [facility] Address: [address] [place] [address] Performed By: #### 5 7021-8 ####[facility] [id number] [place] [address] [place] CEA SerPl-mCncon 05-04-2025 Carcinoembryonic Ag [Mass/Vol] 0.9 ng/mL Normal <=2.9 [facility] Comment on above: Order Comment: Speci men Type: BLOOD SPECIMENOrdering Facility: [facility] Address: [address] [place] [address] Result Comment: Carc inoembryonic antigen test is used as an aid in monitoring response to treatment or recurrence in patients with established colorectal, breast, lung, prostatic, pancreatic, and ovarian carcinomas. Clinical correlation is required.The Carcinoembryonic antigen test was performed using the [employer] [place] [employer] DXI paramagnetic particle chemiluminescent immunoassay method. Results obtained with different assay methods or kits cannot be used interchangeably. Performed By: #### 2 4108-3, 2039-02 ####[facility] [id number] [address] OF [facility] CNCNPATEDon 05-04-2025 CNCNPATED Normal [facility] CNOVSPon 05-04-2025 CNOVSP Normal [facility] Cancer Ag19-9 SerPl-aCncon 0 05-04-2025 Cancer Ag 19-9 Qn 29.0 [arb'U]/mL Normal <36.0 [facility] Comment on above: Order Comment: Speci men Type: BLOOD SPECIMENOrdering Facility: [facility] Address: [address] [place] [address] Result Comment: [facility] er antigen 19-9 test is used as an aid in monitoring response to treatment or recurrence in patients with established pancreatic, hepatobiliary, or gastrointestinal malignancies. Clinical correlation is required.The CA 19-9 Antigen test was performed using the [employer] [place] [employer] DXI paramagnetic particle chemiluminescent immunoassay method. Results obtained with different assay methods or kits cannot be used interchangeably. Performed By: #### 2 4108-3, 2039-02 ####[facility] [id number] [address] [place] Comprehensive metabolic 2000 panelon 05-04-2025 Albumin [Mass/Vol] 4.4 g/dL 3.9 - 4.9 g/dL [facility] ALP [Catalytic activity/Vol] 129 U/L High 34 - 123 U/L [facility] ALT [Catalytic activity/Vol] 77 U/L High 7 - 38 U/L [facility] Anion gap [Moles/Vol] 11 mmol/L 8 - 15 mmol/L [facility] AST [Catalytic activity/Vol] 62 U/L High 13 - 35 U/L [facility] Bilirubin [Mass/Vol] 0.2 mg/dL 0.2 - 1 .3 mg/dL [facility] Calcium [Mass/Vol] 9.1 mg/dL 8.5 - 10. 2 mg/dL [facility] Chloride [Moles/Vol] 107 mmol/L 98 - 10 7 mmol/L [facility] CO2 [Moles/Vol] 23 mmol/L 22 - 30 mmol/L [facility] Creatinine [Mass/Vol] 0.51 mg/dL Low 0.58 - 0.96 mg/dL [facility] GFR/1.73 sq M.predicted among non-blacks MDRD (S/P/Bld) [Vol rate/Area] 100 mL/min/{1.73_m2} - PINF [facility] Comment on above: Estimated Glomerular Filtration Rate (eGFR) is calculated using the 2020 CKD-EPI creatinine equation. This equation utilizes serum creatinine, sex, and age as parameters. The creatinine assay has traceable calibration to isotope dilution-mass spectrometry. Refer to KDIGO guidelines for clinical interpretation. In patients with unstable renal function, e.g. those with acute kidney injury, the eGFR may not accurately reflect actual GFR. Glucose [Mass/Vol] 109 mg/dL High 74 - 99 mg/dL [facility] Comment on above: The [place] [employer] (ADA) provides guidance for cutoff values [...] Standards of Medical Care in Diabetes 2016, [place] [employer]. Diabetes Care. 2016.39(Suppl 1). Interpretation and review of laboratory results Abnormal [facility] Potassium [Moles/Vol] 4.0 mmol/L 3.7 - 5.1 mmol/L [facility] Protein [Mass/Vol] 6.7 g/dL 6.3 - 8.0 g/dL [facility] Sodium [Moles/Vol] 141 mmol/L 136 - 144 mmol/L [facility] Urea nitrogen [Mass/Vol] 9 mg/dL 7 - 21 mg/dL [facility] Albumin [Mass/Vol] 4.4 g/dL Normal 3.9-4.9 [facility] Comment on above: Order Comment: Speci men Type: BLOOD SPECIMENOrdering Facility: [facility] Address: [address] [place] [address] Performed By: #### 2 4323-8 ####[facility] [id number] [place] [address] [place] ALP [Catalytic activity/Vol] 129 U/L High 34-123 [facility] Comment on above: Order Comment: Speci men Type: BLOOD SPECIMENOrdering Facility: [facility] Address: [address] [place] [address] Performed By: #### 2 4323-8 ####[facility] [id number] [place] [address] [place] ALT [Catalytic activity/Vol] 77 U/L High 7-38 [facility] Comment on above: Order Comment: Speci men Type: BLOOD SPECIMENOrdering Facility: [facility] Address: [address] [place] [address] Performed By: #### 2 4323-8 ####[facility] [id number] [place] [address] [place] Anion gap [Moles/Vol] 11 mmol/L Normal 8-15 [facility] Comment on above: Order Comment: Speci men Type: BLOOD SPECIMENOrdering Facility: [facility] Address: [address] [place] [address] Performed By: #### 2 4323-8 ####[facility] [id number] [place] [address] [place] AST [Catalytic activity/Vol] 62 U/L High 13-35 [facility] Comment on above: Order Comment: Speci men Type: BLOOD SPECIMENOrdering Facility: [facility] Address: [address] [place] [address] Performed By: #### 2 4323-8 ####[facility] [id number] [place] [address] [place] Bilirubin [Mass/Vol] 0.2 mg/dL Normal 0.2-1.3 [facility] Comment on above: Order Comment: Speci men Type: BLOOD SPECIMENOrdering Facility: [facility] Address: [address] [place] [address] Performed By: #### 2 4323-8 ####[facility] [id number] [place] [address] [place] Calcium [Mass/Vol] 9.1 mg/dL Normal 8.5-10.2 [facility] Comment on above: Order Comment: Speci men Type: BLOOD SPECIMENOrdering Facility: [facility] Address: [address] [place] [address] Performed By: #### 2 4323-8 ####[facility] [id number] [place] [address] [place] Chloride [Moles/Vol] 107 mmol/L Normal 98-107 [facility] Comment on above: Order Comment: Speci men Type: BLOOD SPECIMENOrdering Facility: [facility] Address: [address] [place] [address] Performed By: #### 2 4323-8 ####[facility] [id number] [place] [address] [place] CO2 [Moles/Vol] 23 mmol/L Normal 22-30 [facility] Comment on above: Order Comment: Speci men Type: BLOOD SPECIMENOrdering Facility: [facility] Address: [address] [place] [address] Performed By: #### 2 4323-8 ####[facility] [id number] [place] [address] [place] Creatinine [Mass/Vol] 0.51 mg/dL Low 0.58-0.96 [facility] Comment on above: Order Comment: Sonia little Type: BLOOD SPECIMENOrdering Facility: [facility] Address: [address] [place] [address] Performed By: #### 2 4323-8 ####[facility] [id number] [place] [address] [place] eGFRcr SerPlBld CKD-EPI 2020 100 mL/min/1.73m??? Normal >=60 [facility] Comment on above: Order Comment: Sonia little Type: BLOOD SPECIMENOrdering Facility: [facility] Address: [address] [place] [address] Result Comment: Lupe mated Glomerular Filtration Rate [...] actual GFR. Performed By: #### 2 4323-8 ####[facility] [id number] [place] [address] [place] Glucose [Mass/Vol] 109 mg/dL High 74-99 [facility] Comment on above: Order Comment: Sonia little Type: BLOOD SPECIMENOrdering Facility: [facility] Address: [address] [place] [address] Result Comment: The [place] [employer] (ADA) provides guidance for cutoff values for fasting glucose and random glucose. The ADA defines fasting as no caloric intake for at least 8 hours. Fasting plasma glucose results between 100 to 125 mg/dL indicate increased risk for diabetes (prediabetes).Fasting plasma glucose results greater than or equal to 126 mg/dL meet the criteria for diagnosis of diabetes. In the absence of unequivocal hyperglycemia, results should be confirmed by repeat testing. In a patient with classic symptoms of hyperglycemia or hyperglycemic crisis, random plasma glucose results greater than or equal to 200 mg/dL meet the criteria for diagnosis of diabetes.Reference: Standards of Medical Care in Diabetes 2016, [place] [employer]. Diabetes Care. 2016.39(Suppl 1). Performed By: #### 2 4323-8 ####[facility] [id number] [place] [address] [place] Potassium [Moles/Vol] 4.0 mmol/L Normal 3.7-5.1 [facility] Comment on above: Order Comment: Speci men Type: BLOOD SPECIMENOrdering Facility: [facility] Address: [address] [place] [address] Performed By: #### 2 4323-8 ####[facility] [id number] [place] [address] [place] Protein [Mass/Vol] 6.7 g/dL Normal 6.3-8.0 [facility] Comment on above: Order Comment: Speci men Type: BLOOD SPECIMENOrdering Facility: [facility] Address: [address] [place] [address] Performed By: #### 2 4323-8 ####[facility] [id number] [place] [address] [place] Sodium [Moles/Vol] 141 mmol/L Normal 136-144 [facility] Comment on above: Order Comment: Speci men Type: BLOOD SPECIMENOrdering Facility: [facility] Address: [address] [place] [address] Performed By: #### 2 4323-8 ####[facility] [id number] [place] [address] [place] Urea nitrogen [Mass/Vol] 9 mg/dL Normal 7-21 [facility] Comment on above: Order Comment: Speci men Type: BLOOD SPECIMENOrdering Facility: [facility] Address: [address] [place] [address] Performed By: #### 2 4323-8 ####[facility] [id number] [address] [address] [place] [facility] C[facility] Normal [facility] HISTORY PHYSICALon HISTORY PHYSICAL HNO ID: [id number] Author: SHAHANA FUCHS MD Service: Radiology Author Type: Physician Type: H&P Filed: 04/16/2025 13:22 Note Text: UPDATED PROCEDURAL SEDATION HISTORY AND PHYSICAL EXAMINATION SERVICE DATE: 04/16/2025 SERVICE TIME: 1:22 PM PHYSICAL EXAM MUST BE COMPLETED ON ADMISSION PROCEDURE: Port-a-cath placement Procedure Indications: Access for chemotherapy The History and Physical (completed in the past 30 days) has been reviewed and the patient has been examined. The contents accurately reflect the patient's condition with the following additions or revisions since the HANDP was completed. ASA Class: ASA Class: Patient with mild systemic disease Examination indicates no changes. AIRWAY: Mouth opening greater than 3 fingerbreadths: Yes Neck Full Range of Motion: Yes LUNGS: Lungs clear to auscultation CARDIAC: Regular rhythm,Regular rate Provisional Diagnosis/Treatment Plan: Port-a-cath placement Sedation Goal: Moderate This HANDP can be found in the Electronic Medical Record dated 04/09/2025. 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 s/p surgery. Now, needs port-a-cath for systemic chemotherapy. H/o remote right breast cancer; completed treatment for that. CONSENT: Risks, benefits, treatment options, potential complications and personnel to be involved were discussed (including the risks of radiation exposure, contrast and anesthesia administration, and any equipment needed for the procedure to ensure best possible outcome) with the patient and all questions were answered and consent was obtained prior to procedure. MEDICATION RECONCILIATION: The patient's medications and allergies were reviewed in the electronic medical record and reconciled to the proposed procedure/treatment. VAZQUEZ-PROCEDURE DISCUSSION: The appropriate elements of the pre-procedure discussion, safety check list and sign-out were performed. TIME OUT: A time out was performed immediately prior to procedure start with the nursing, and interventional team, correctly identifying the name, date of , procedure, anatomy (including marking of site and side if applicable), patient position, procedure consent form, relevant diagnostic and radiology test results, antibiotic administration if applicable, safety precautions, and procedure-specific equipment needs. Start of procedure: 1358 End of procedure: 1420 Patient position: Supine Anesthesia: After establishing pulse oximetry, BP and EKG monitoring by the Radiology nurse, moderate sedation with Versed and Fentanyl was administered. Intra-service time (monitoring for moderate sedation): 37 minutes Patient monitoring: I personally supervised and directed an independent trained observer who assisted in monitoring the patient?s level of consciousness and physiological status throughout the procedure. Local anesthesia: 2 % lidocaine ANTIBIOTICS: Ancef Antibiotic infusion start time: 1314 CONTRAST DOSE: None IMAGE GUIDANCE: Fluoroscopic and sonographic guidance was used. Ultrasound demonstrated patency of the target vein without filling defects. Access was obtained under direct sonographic visualization. A sonographic image of the vessel was obtained and placed into the permanent archive for documentation. FLUOROSCOPIC RADIATION SUMMARY: Plane A, Air Kerma: 1.1 mGy Dose Area Product (DAP): Fluoro Time: 0:24 min:sec Radiation dose exceed 5 Gy: No If radiation dose exceeded 5 Gy, was counseling and instructional brochure provided: N/A TECHNIQUE: The patient was prepped and draped using all elements of maximal sterile barrier technique (cap, mask, sterile gown, sterile gloves, a large sterile sheet, hand hygiene and cutaneous antisepsis), sterile ultrasound gel and sterile ultrasound probe covers. Sponge counts were made. After local anesthesia, access was obtained into the vein using a 21 G needle micropuncture set. Needle was exchanged over guide wire for a peel away sheath. Small incision and pocket was made for the reservoir. Hemostasis was obtained using gauze. The catheter was tunneled to the venous access site from the pocket. The catheter was trimmed to appropriate length and placed through the peel away sheath under fluoroscopic guidance. The catheter was connected to the reservoir. The reservoir was placed into the pocket and secured with absorbable sutures. The port was accessed and demonstrated good blood draw and flush. The port was flushed with saline without heparin. The pocket incision was closed with interrupted absorbable sutures and absorbable subcuticular suture. Tissue adhesive was used to close the skin and dressing was applied. Sponge count was verified and all sponge were accounted. The [facility] Central Line Insertion checklist, attached to the Central Line-Associated Bloodstream Infection Prevention Policy, was utilized during this procedure. RESULT: Ultrasound demonstrated patency of the chosen vein. Tip of the catheter terminated in the distal superior vena cava-right atrial junction. ACCESS: Right internal jugular vein INDWELLING DEVICE: 8F POWER INJECTABLE VACCESS PORT The patient tolerated the procedure well. There were no significant complications and no other complications during the procedure. CONCLUSION: The patient was comfortable and was transferred to the recovery room in stable condition. Estimated Blood Loss: Minimal Number and Type of Removed Specimens: None ATTENDING RADIOLOGIST: Shahana Fuchs M.D. MIGRATION SPECIALIST: None The procedure was performed by the: attending radiologist, without an environmental assistant. The attending radiologist performed the following procedural activities: Entire procedure IMPRESSION: SUCCESSFUL PLACEMENT OF PORTED ANILA (more content not included)... 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 s/p surgery. Now, needs port-a-cath for systemic chemotherapy. H/o remote right breast cancer; completed treatment for that. CONSENT: Risks, benefits, treatment options, potential complications and personnel to be involved were discussed (including the risks of radiation exposure, contrast and anesthesia administration, and any equipment needed for the procedure to ensure best possible outcome) with the patient and all questions were answered and consent was obtained prior to procedure. MEDICATION RECONCILIATION: The patient's medications and allergies were reviewed in the electronic medical record and reconciled to the proposed procedure/treatment. VAZQUEZ-PROCEDURE DISCUSSION: The appropriate elements of the pre-procedure discussion, safety check list and sign-out were performed. TIME OUT: A time out was performed immediately prior to procedure start with the nursing, and interventional team, correctly identifying the name, date of , procedure, anatomy (including marking of site and side if applicable), patient position, procedure consent form, relevant diagnostic and radiology test results, antibiotic administration if applicable, safety precautions, and procedure-specific equipment needs. Start of procedure: 1358 End of procedure: 1420 Patient position: Supine Anesthesia: After establishing pulse oximetry, BP and EKG monitoring by the Radiology nurse, moderate sedation with Versed and Fentanyl was administered. Intra-service time (monitoring for moderate sedation): 37 minutes Patient monitoring: I personally supervised and directed an independent trained observer who assisted in monitoring the patient?s level of consciousness and physiological status throughout the procedure. Local anesthesia: 2 % lidocaine ANTIBIOTICS: Ancef Antibiotic infusion start time: 1314 CONTRAST DOSE: None IMAGE GUIDANCE: Fluoroscopic and sonographic guidance was used. Ultrasound demonstrated patency of the target vein without filling defects. Access was obtained under direct sonographic visualization. A sonographic image of the vessel was obtained and placed into the permanent archive for documentation. FLUOROSCOPIC RADIATION SUMMARY: Plane A, Air Kerma: 1.1 mGy Dose Area Product (DAP): Fluoro Time: 0:24 min:sec Radiation dose exceed 5 Gy: No If radiation dose exceeded 5 Gy, was counseling and instructional brochure provided: N/A TECHNIQUE: The patient was prepped and draped using all elements of maximal sterile barrier technique (cap, mask, sterile gown, sterile gloves, a large sterile sheet, hand hygiene and cutaneous antisepsis), sterile ultrasound gel and sterile ultrasound probe covers. Sponge counts were made. After local anesthesia, access was obtained into the vein using a 21 G needle micropuncture set. Needle was exchanged over guide wire for a peel away sheath. Small incision and pocket was made for the reservoir. Hemostasis was obtained using gauze. The catheter was tunneled to the venous access site from the pocket. The catheter was trimmed to appropriate length and placed through the peel away sheath under fluoroscopic guidance. The catheter was connected to the reservoir. The reservoir was placed into the pocket and secured with absorbable sutures. The port was accessed and demonstrated good blood draw and flush. The port was flushed with saline without heparin. The pocket incision was closed with interrupted absorbable sutures and absorbable subcuticular suture. Tissue adhesive was used to close the skin and dressing was applied. Sponge count was verified and all sponge were accounted. The [facility] Central Line Insertion checklist, attached to the Central Line-Associated Bloodstream Infection Prevention Policy, was utilized during this procedure. RESULT: Ultrasound demonstrated patency of the chosen vein. Tip of the catheter terminated in the distal superior vena cava-right atrial junction. ACCESS: Right internal jugular vein INDWELLING DEVICE: 8F POWER INJECTABLE VACCESS PORT The patient tolerated the procedure well. There were no significant complications and no other complications during the procedure. CONCLUSION: The patient was comfortable and was transferred to the recovery room in stable condition. Estimated Blood Loss: Minimal Number and Type of Removed Specimens: None ATTENDING RADIOLOGIST: Shahana Fuchs M.D. MIGRATION SPECIALIST: None The procedure was performed by the: attending radiologist, without an environmental assistant. The attending radiologist performed the following procedural activities: Entire procedure IMPRESSION: SUCCESSFUL PLACEMENT OF PORTED CATHET (more content not included)... 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 s/p surgery. Now, needs port-a-cath for systemic chemotherapy. H/o remote right breast cancer; completed treatment for that. CONSENT: Risks, benefits, treatment options, potential complications and personnel to be involved were discussed (including the risks of radiation exposure, contrast and anesthesia administration, and any equipment needed for the procedure to ensure best possible outcome) with the patient and all questions were answered and consent was obtained prior to procedure. MEDICATION RECONCILIATION: The patient's medications and allergies were reviewed in the electronic medical record and reconciled to the proposed procedure/treatment. VAZQUEZ-PROCEDURE DISCUSSION: The appropriate elements of the pre-procedure discussion, safety check list and sign-out were performed. TIME OUT: A time out was performed immediately prior to procedure start with the nursing, and interventional team, correctly identifying the name, date of , procedure, anatomy (including marking of site and side if applicable), patient position, procedure consent form, relevant diagnostic and radiology test results, antibiotic administration if applicable, safety precautions, and procedure-specific equipment needs. Start of procedure: 1358 End of procedure: 1420 Patient position: Supine Anesthesia: After establishing pulse oximetry, BP and EKG monitoring by the Radiology nurse, moderate sedation with Versed and Fentanyl was administered. Intra-service time (monitoring for moderate sedation): 37 minutes Patient monitoring: I personally supervised and directed an independent trained observer who assisted in monitoring the patient?s level of consciousness and physiological status throughout the procedure. Local anesthesia: 2 % lidocaine ANTIBIOTICS: Ancef Antibiotic infusion start time: 1314 CONTRAST DOSE: None IMAGE GUIDANCE: Fluoroscopic and sonographic guidance was used. Ultrasound demonstrated patency of the target vein without filling defects. Access was obtained under direct sonographic visualization. A sonographic image of the vessel was obtained and placed into the permanent archive for documentation. FLUOROSCOPIC RADIATION SUMMARY: Plane A, Air Kerma: 1.1 mGy Dose Area Product (DAP): Fluoro Time: 0:24 min:sec Radiation dose exceed 5 Gy: No If radiation dose exceeded 5 Gy, was counseling and instructional brochure provided: N/A TECHNIQUE: The patient was prepped and draped using all elements of maximal sterile barrier technique (cap, mask, sterile gown, sterile gloves, a large sterile sheet, hand hygiene and cutaneous antisepsis), sterile ultrasound gel and sterile ultrasound probe covers. Sponge counts were made. After local anesthesia, access was obtained into the vein using a 21 G needle micropuncture set. Needle was exchanged over guide wire for a peel away sheath. Small incision and pocket was made for the reservoir. Hemostasis was obtained using gauze. The catheter was tunneled to the venous access site from the pocket. The catheter was trimmed to appropriate length and placed through the peel away sheath under fluoroscopic guidance. The catheter was connected to the reservoir. The reservoir was placed into the pocket and secured with absorbable sutures. The port was accessed and demonstrated good blood draw and flush. The port was flushed with saline without heparin. The pocket incision was closed with interrupted absorbable sutures and absorbable subcuticular suture. Tissue adhesive was used to close the skin and dressing was applied. Sponge count was verified and all sponge were accounted. The [facility] Central Line Insertion checklist, attached to the Central Line-Associated Bloodstream Infection Prevention Policy, was utilized during this procedure. RESULT: Ultrasound demonstrated patency of the chosen vein. Tip of the catheter terminated in the distal superior vena cava-right atrial junction. ACCESS: Right internal jugular vein INDWELLING DEVICE: 8F POWER INJECTABLE VACCESS PORT The patient tolerated the procedure well. There were no significant complications and no other complications during the procedure. CONCLUSION: The patient was comfortable and was transferred to the recovery room in stable condition. Estimated Blood Loss: Minimal Number and Type of Removed Specimens: None ATTENDING RADIOLOGIST: Shahana Fuchs M.D. MIGRATION SPECIALIST: None The procedure was performed by the: attending radiologist, without an environmental assistant. The attending radiologist performed the following procedural activities: Entire procedure IMPRESSION: SUCCESSFUL PLACEMENT OF PORTED C (more content not included)... [facility] NURSING PROGon 04-16-2025 NURSING PROG HNO ID: [id number] Author: LOUIE ERAZO RN Service: Nursing Author Type: Registered Nurse Type: Nursing Progress Note Filed: 04/19/2025 11:12 Note Text: Attempted post procedure phone call. Left VM for patient to return call to [phone] with any questions/concerns. [facility] NURSING PROG HNO ID: [id number] Author: RENETTA ASHTON RN Service: Nursing Author Type: Registered Nurse Type: Nursing Progress Note Filed: 04/16/2025 12:15 Note Text: PATIENT EDUCATION TOPIC: PROCEDURE / SURGERY: Procedure/Surgery: mediport PATIENT NAME: Silvana Gómez PATIENT LOCATION: AV Rad Proc/AV Rad Proc READINESS TO LEARN COGNITIVE ABILITY: Alert and oriented MOTIVATION TO LEARN: Eager Interested FAMILY SUPPORT: High - Very involved in pt care INSTRUCTION PROVIDED TO: Patient PATIENT LEARNS BEST BY: Individual Instruction Written Instruction - Hand-outs Verbal Instruction FACTORS AFFECTING LEARNING: None PHYSICAL LIMITATIONS AFFECTING LEARNING: None LEARNING RESPONSE DIAGNOSIS: ADULT: Chemotherapy PATIENT/FAMILY RESPONSE: Verbalizes understanding of: POST-PROCEDURE INSTRUCTIONS-Correct actions to take to reduce post procedure complications PRE-PROCEDURE INSTRUCTIONS-Correct action to take to follow pre-procedure instructions METHOD OF INSTRUCTION: Individual instruction Written instruction/Handouts Verbal instruction FOLLOW-UP PLAN: Patient instructed to call with any further issues Follow-up with Primary Care INSTRUCTIONAL AIDS USED: NA SUPPLEMENTAL MATERIAL PROVIDED TO PATIENT: Post port placement instructions given to patient REFERRAL (RECOMMENDATION): None Electronically Signed [facility]: [facility] Auto Differential pane l (Bld)on 04-09-2025 Basophils (Bld) [#/Vol] 0.03 10*3/uL Normal <0.11 [facility] Comment on above: Order Comment: Speci men Type: BLOOD SPECIMENOrdering Facility: [facility] Address: [address] [place] [address] Performed By: #### 5 7021-8 ####[facility] [id number] [place] [address] [place] Basophils/100 WBC (Bld) 0.6 % Normal [facility] Comment on above: Order Comment: Speci men Type: BLOOD SPECIMENOrdering Facility: [facility] Address: [address] [place] [address] Performed By: #### 5 7021-8 ####[facility] [id number] [place] [address] [place] Differential cell count method Nom (Bld) Auto Normal [facility] Comment on above: Order Comment: Speci men Type: BLOOD SPECIMENOrdering Facility: [facility] Address: [address] [place] [address] Performed By: #### 5 7021-8 ####[facility] [id number] [place] [address] [place] Eosinophils (Bld) [#/Vol] 0.17 10*3/uL Normal <0.46 [facility] Comment on above: Order Comment: Speci men Type: BLOOD SPECIMENOrdering Facility: [facility] Address: [address] [place] [address] Performed By: #### 5 7021-8 ####[facility] [id number] [place] [address] [place] Eosinophils/100 WBC (Bld) 3.2 % Normal [facility] Comment on above: Order Comment: Speci men Type: BLOOD SPECIMENOrdering Facility: [facility] Address: [address] [place] [address] Performed By: #### 5 7021-8 ####[facility] [id number] [place] [address] [place] Erythrocyte distribution width (RBC) [Ratio] 20.0 % High 11.5-15.0 [facility] Comment on above: Order Comment: Speci men Type: BLOOD SPECIMENOrdering Facility: [facility] Address: [address] [place] [address] Performed By: #### 5 7021-8 ####[facility] [id number] [place] [address] [place] Hematocrit (Bld) [Volume fraction] 38.3 % Normal 36.0-46.0 [facility] Comment on above: Order Comment: Speci men Type: BLOOD SPECIMENOrdering Facility: [facility] Address: [address] [place] [address] Performed By: #### 5 7021-8 ####[facility] [id number] [place] [address] [place] Hemoglobin (Bld) [Mass/Vol] 11.9 g/dL Normal 11.5-15.5 [facility] Comment on above: Order Comment: Speci men Type: BLOOD SPECIMENOrdering Facility: [facility] Address: [address] [place] [address] Performed By: #### 5 7021-8 ####[facility] [id number] [place] [address] [place] Immature granulocytes (Bld) [#/Vol] 10*3/uL Normal <0.10 [facility] Comment on above: Order Comment: Speci men Type: BLOOD SPECIMENOrdering Facility: [facility] Address: [address] [place] [address] Performed By: #### 5 7021-8 ####[facility] [id number] [place] [address] [place] Immature granulocytes/100 WBC (Bld) 0.4 % Normal [facility] Comment on above: Order Comment: Speci men Type: BLOOD SPECIMENOrdering Facility: [facility] Address: [address] [place] [address] Performed By: #### 5 7021-8 ####[facility] [id number] [place] [address] [place] Lymphocytes (Bld) [#/Vol] 0.98 10*3/uL Low 1.00-4.00 [facility] Comment on above: Order Comment: Speci men Type: BLOOD SPECIMENOrdering Facility: [facility] Address: [address] [place] [address] Performed By: #### 5 7021-8 ####[facility] [id number] [place] [address] [place] [facility] [place] [facility] Lymphocytes/100 WBC (Bld) 18.5 % Normal [facility] Comment on above: Order Comment: Speci men Type: BLOOD SPECIMENOrdering Facility: [facility] Address: [address] [place] [address] Performed By: #### 5 7021-8 ####[facility] [id number] [place] [address] [place] MCH (RBC) [Entitic mass] 27.0 pg Normal 26.0-34.0 [facility] Comment on above: Order Comment: Speci men Type: BLOOD SPECIMENOrdering Facility: [facility] Address: [address] [place] [address] Performed By: #### 5 7021-8 ####[facility] [id number] [place] [address] [place] MCHC (RBC) [Mass/Vol] 31.1 g/dL Normal 30.5-36.0 [facility] Comment on above: Order Comment: Speci men Type: BLOOD SPECIMENOrdering Facility: [facility] Address: [address] [place] [address] Performed By: #### 5 7021-8 ####[facility] [id number] [place] [address] [place] MCV (RBC) [Entitic vol] 86.8 fL Normal 80.0-100.0 [facility] Comment on above: Order Comment: Speci men Type: BLOOD SPECIMENOrdering Facility: [facility] Address: [address] [place] [address] Performed By: #### 5 7021-8 ####[facility] [id number] [place] [address] [place] Monocytes (Bld) [#/Vol] 0.38 10*3/uL Normal <0.87 [facility] Comment on above: Order Comment: Speci men Type: BLOOD SPECIMENOrdering Facility: [facility] Address: [address] [place] [address] Performed By: #### 5 7021-8 ####[facility] [id number] [place] [address] [place] Monocytes/100 WBC (Bld) 7.2 % Normal [facility] Comment on above: Order Comment: Speci men Type: BLOOD SPECIMENOrdering Facility: [facility] Address: [address] [place] [address] Performed By: #### 5 7021-8 ####[facility] [id number] [place] [address] [place] Neutrophils (Bld) [#/Vol] 3.73 10*3/uL Normal 1.45-7.50 [facility] Comment on above: Order Comment: Speci men Type: BLOOD SPECIMENOrdering Facility: [facility] Address: [address] [place] [address] Performed By: #### 5 7021-8 ####[facility] [id number] [place] [address] [place] Neutrophils/100 WBC (Bld) 70.1 % Normal [facility] Comment on above: Order Comment: Speci men Type: BLOOD SPECIMENOrdering Facility: [facility] Address: [address] [place] [address] Performed By: #### 5 7021-8 ####[facility] [id number] [place] [address] [place] Nucleated RBC (Bld) [#/Vol] 10*3/uL Normal <0.01 [facility] Comment on above: Order Comment: Speci men Type: BLOOD SPECIMENOrdering Facility: [facility] Address: [address] [place] [address] Performed By: #### 5 7021-8 ####[facility] [id number] [place] [address] [place] Nucleated RBC/100 WBC (Bld) [Ratio] 0.0 /100 WBC Normal [facility] Comment on above: Order Comment: Speci men Type: BLOOD SPECIMENOrdering Facility: [facility] Address: [address] [place] [address] Performed By: #### 5 7021-8 ####[facility] [id number] [place] [address] [place] Platelet mean volume (Bld) [Entitic vol] 9.8 fL Normal 9.0-12.7 [facility] Comment on above: Order Comment: Speci men Type: BLOOD SPECIMENOrdering Facility: [facility] Address: [address] [place] [address] Performed By: #### 5 7021-8 ####[facility] [id number] [place] [address] [place] Platelets (Bld) [#/Vol] 236 10*3/uL Normal 150-400 [facility] Comment on above: Order Comment: Speci men Type: BLOOD SPECIMENOrdering Facility: [facility] Address: [address] [place] [address] Performed By: #### 5 7021-8 ####[facility] [id number] [place] [address] [place] RBC (Bld) [#/Vol] 4.41 10*6/uL Normal 3.90-5.20 [facility] Comment on above: Order Comment: Speci men Type: BLOOD SPECIMENOrdering Facility: [facility] Address: [address] [place] [address] Performed By: #### 5 7021-8 ####[facility] [id number] [place] [address] [place] WBC (Bld) [#/Vol] 5.31 10*3/uL Normal 3.70-11.00 [facility] Comment on above: Order Comment: Speci men Type: BLOOD SPECIMENOrdering Facility: [facility] Address: [address] [place] [address] Performed By: #### 5 7021-8 ####[facility] [id number] [place] [address] [place] CEA SerPl-ncon 04-09-2025 Carcinoembryonic Ag [Mass/Vol] 1.0 ng/mL Normal <=2.9 [facility] Comment on above: Order Comment: Speci men Type: BLOOD SPECIMENOrdering Facility: [facility] Address: [address] [place] [address] Result Comment: Carc inoembryonic antigen test is used as an aid in monitoring response to treatment or recurrence in patients with established colorectal, breast, lung, prostatic, pancreatic, and ovarian carcinomas. Clinical correlation is required.The Carcinoembryonic antigen test was performed using the [employer] Unicel DXI paramagnetic particle chemiluminescent immunoassay method. Results obtained with different assay methods or kits cannot be used interchangeably. Performed By: #### 2 039-6, 82070-1 ####[facility] [id number] [place] [address] [place] CNCNPATEDon 04-09-2025 CNCNPATED Normal [facility] CNOVon 04-09-2025 CNOV Normal [facility] CNOVSPon 04-09-2025 CNOVSP Normal [facility] CNPNon 04-09-2025 CNPN Telephone (AVXRPR) SILVANA GÓMEZ ([id number]) 1955 F Date Time Provider Department 04/09/25 JACQUE PONCE During your visit today, we recorded the following information about you: Jacque Ponce, JEANETTE 04/09/2025 1:56 PM Signed RADIOLOGY PROCEDURE INSTRUCTIONS: You are scheduled for a Mediport insertion, on Wednesday April 16, 2025 You are to arrive at 1200 pm and check in at [facility]: Radiology Outpatient Desk [id number]. You can expect to be here for 3-5 hours. Address: [place] [address] Diet: Do not eat any solid food after midnight the night before your procedure. You may drink clear liquids until 1000 am the day of your procedure, which means black coffee, apple juice, tea, jello, Gatorade, or water only. If applicable, hold tube feed starting at 4 am the day of your procedure. Medications: Please take prescribed medications such as heart, blood pressure, anti-seizure, and chronic pain medications with a sip of clear liquids. Bring your current medication list. Radiology recommends these medication restrictions: If you are taking any medication that is a blood thinner, hypoglycemic, weight loss agent, etc., Call [phone] you may need to hold this medication prior to procedure. Not stopping the medication correctly may result in your procedure being canceled. If ok with your prescribing provider: Hold Lovenox (Enoxaparin) for 1 dose(s) prior to this procedure. If you are diabetic please contact your physician regarding diet restrictions and managing insulin/diabetes medications pre-procedure: Stop oral hypoglycemic the day of this procedure Hold short acting insulin the day of procedure Long acting insulin, take ? dose If on mixed insulin - if BG> than 200 take half the dose If BG less < 200- don't take If you are currently taking injectable or oral medication for diabetes or weight loss: Please call [phone] Allergies: Allergies reviewed: Yes Do you have a contrast dye allergy? No. Labs: Lab work needs to be drawn? No. Prep Person/Transportation: How will you be arriving for your procedure? Private car. If you will be arriving via ambulance or public transportation, please call to discuss. You will need a responsible adult to accompany you to and from the procedure. We will verify your ride home upon arrival. Minors/visitors requiring supervision cannot accompany you unless there is another responsible adult with them. Child and/or dependent care arrangements need to be made. ___ If you need to cancel or reschedule your procedure, please call our fishing gear mechanic: Natalia Diana and Cara [phone]; 8am - 4pm M-F If you have any additional questions please call: [facility] nurses desk at [phone] 8am - 4pm M-F. Allergies As of Date: 04/09/2025 Noted Allergy Reaction SEASONAL ALLERGIES 10/18/2009 Date Reviewed: 04/09/2025 Reviewed by: Scarlet Mcmanus RD - Fully Assessed Prescriptions as of 04/09/2025 - metoclopramide HCl (REGLAN) 10 mg tablet Take 1 tablet by mouth three times a day. - ondansetron orally disintegrating (ZOFRAN ODT) [address] 1 tablet by mouth and let dissolve every 8 hours as needed for nausea/vomiting. - pantoprazole DR (PROTONIX) 40 mg tablet Take 1 tablet by mouth once daily. - pmaxlb-yfmbuppn-zedycnd (VIOKACE) 20,880-78,300- 78,300 unit tablet Take 1 tablet by mouth three times a day with meals. - enoxaparin (LOVENOX) 40 mg/0.4 mL Inject 0.4 mL subcutaneously once daily. - pantoprazole DR (PROTONIX) 40 mg tablet Take 1 tablet by mouth once daily. - cholecalciferol, vitamin D3, (VITAMIN D3 ORAL) Take by mouth. - Senna 8.6 mg tab Take 2 tablets by mouth daily at bedtime. - fexofenadine (ADEOLA) 180 mg tablet once daily. - cetirizine HCl (ZYRTEC) 10 mg chewable tablet Take 20 mg by mouth. - rosuvastatin (CRESTOR) 10 mg tablet Take 10 mg by mouth once daily. - SYNTHROID 75 mcg tablet Take 75 mcg by mouth once daily. - VIT C/MAISHA AC/LUT/COPPER/ZNOX (PRESERVISION LUTEIN ORAL) Take by mouth. Meds Comments as of 04/27/2013: Patient taking no meds Problem List As Of Date 04/09/2025 Noted Resolved Breast Cancer [C50.919] 11/08/2009 Malignant neoplasm of female breast (HCC) [C50.*11/27/2009 Osteopenia [M85.80] 06/25/2017 SVT (supraventricular tachycardia) (HCC) [I47.1*04/26/2020 Hyperlipidemia [E78.5] 02/12/2019 Liver cyst [K76.89] 03/05/2025 Hypothyroidism [E03.9] 05/29/2022 Personal history of malignant neoplasm of breas*03/24/2015 GERD (gastroesophageal reflux disease) [K21.9] 03/05/2025 PONV (postoperative nausea and vomiting) [R11.2*03/05/2025 Iron deficiency anemia due to chronic blood los*03/09/2025 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 Normal [facility] Cancer Ag19-9 SerPl-aCncon 0 04-09-2025 Cancer Ag 19-9 Qn 34.0 [arb'U]/mL Normal <36.0 [facility] Comment on above: Order Comment: Speci anabel Type: BLOOD SPECIMENOrdering Facility: [facility] Address: [address] [place] [address] Result Comment: [facility] er antigen 19-9 test is used as an aid in monitoring response to treatment or recurrence in patients with established pancreatic, hepatobiliary, or gastrointestinal malignancies. Clinical correlation is required.The CA 19-9 Antigen test was performed using the [employer]ha [employer] DXI paramagnetic particle chemiluminescent immunoassay method. Results obtained with different assay methods or kits cannot be used interchangeably. Performed By: #### 2 039-6, 03783-1 ####[facility] [id number] [place] [address] [place] Comprehensive metabolic 2000 panelon 04-09-2025 Albumin [Mass/Vol] 4.2 g/dL 3.9 - 4.9 g/dL [facility] ALP [Catalytic activity/Vol] 151 U/L High 34 - 123 U/L [facility] ALT [Catalytic activity/Vol] 15 U/L 7 - 38 U/L [facility] Anion gap [Moles/Vol] 13 mmol/L 8 - 15 mmol/L [facility] AST [Catalytic activity/Vol] 19 U/L 13 - 35 U/L [facility] Bilirubin [Mass/Vol] 0.2 mg/dL 0.2 - 1 .3 mg/dL [facility] Calcium [Mass/Vol] 9.3 mg/dL 8.5 - 10. 2 mg/dL [facility] Chloride [Moles/Vol] 103 mmol/L 98 - 10 7 mmol/L [facility] CO2 [Moles/Vol] 24 mmol/L 22 - 30 mmol/L [facility] Creatinine [Mass/Vol] 0.55 mg/dL Low 0.58 - 0.96 mg/dL [facility] GFR/1.73 sq M.predicted among non-blacks MDRD (S/P/Bld) [Vol rate/Area] 99 mL/min/{1.73_m2} - PINF [facility] Comment on above: Estimated Glomerular Filtration Rate (eGFR) is calculated using the 2020 CKD-EPI creatinine equation. This equation utilizes serum creatinine, sex, and age as parameters. The creatinine assay has traceable calibration to isotope dilution-mass spectrometry. Refer to KDIGO guidelines for clinical interpretation. In patients with unstable renal function, e.g. those with acute kidney injury, the eGFR may not accurately reflect actual GFR. Glucose [Mass/Vol] 135 mg/dL High 74 - 99 mg/dL [facility] Comment on above: The [place] Diab[employer] s Association (ADA) provides guidance for cutoff values [...] Standards of Medical Care in Diabetes 2016, [place] [employer]. Diabetes Care. 2016.39(Suppl 1). Interpretation and review of laboratory results Abnormal [facility] Potassium [Moles/Vol] 3.7 mmol/L 3.7 - 5.1 mmol/L [facility] Protein [Mass/Vol] 6.9 g/dL 6.3 - 8.0 g/dL [facility] Sodium [Moles/Vol] 140 mmol/L 136 - 144 mmol/L [facility] Urea nitrogen [Mass/Vol] 10 mg/dL 7 - 21 mg/dL [facility] Albumin [Mass/Vol] 4.2 g/dL Normal 3.9-4.9 [facility] Comment on above: Order Comment: Sonia little Type: BLOOD SPECIMENOrdering Facility: [facility] Address: [address] [place] [address] Performed By: #### 2 4323-8, 00571-3 ####[facility] [id number] [place] [address] [place] ALP [Catalytic activity/Vol] 151 U/L High 34-123 [facility] Comment on above: Order Comment: Sonia little Type: BLOOD SPECIMENOrdering Facility: [facility] Address: [address] [place] [address] Performed By: #### 2 4323-8, 45460-8 ####[facility] [id number] [place] [address] [place] ALT [Catalytic activity/Vol] 15 U/L Normal 7-38 [facility] Comment on above: Order Comment: Speci men Type: BLOOD SPECIMENOrdering Facility: [facility] Address: [address] [place] [address] Performed By: #### 2 4323-8, 44033-7 ####[facility] [id number] [place] [address] [place] Anion gap [Moles/Vol] 13 mmol/L Normal 8-15 [facility] Comment on above: Order Comment: Speci men Type: BLOOD SPECIMENOrdering Facility: [facility] Address: [address] [place] [address] Performed By: #### 2 4323-8, 73027-0 ####[facility] [id number] [place] [address] [place] AST [Catalytic activity/Vol] 19 U/L Normal 13-35 [facility] Comment on above: Order Comment: Speci men Type: BLOOD SPECIMENOrdering Facility: [facility] Address: [address] [place] [address] Performed By: #### 2 4323-8, 40008-1 ####[facility] [id number] [place] [address] [place] Bilirubin [Mass/Vol] 0.2 mg/dL Normal 0.2-1.3 [facility] Comment on above: Order Comment: Speci men Type: BLOOD SPECIMENOrdering Facility: [facility] Address: [address] [place] [address] Performed By: #### 2 4323-8, 90612-1 ####[facility] [id number] [address] [address] [id number] [address] [place] Calcium [Mass/Vol] 9.3 mg/dL Normal 8.5-10.2 [facility] Comment on above: Order Comment: Speci men Type: BLOOD SPECIMENOrdering Facility: [facility] Address: [address] [place] [address] Performed By: #### 2 4323-8, 96818-3 ####[facility] [id number] [place] [address] [place] Chloride [Moles/Vol] 103 mmol/L Normal 98-107 [facility] Comment on above: Order Comment: Speci men Type: BLOOD SPECIMENOrdering Facility: [facility] Address: [address] [place] [address] Performed By: #### 2 4323-8, 09746-1 ####[facility] [id number] [place] [address] [place] CO2 [Moles/Vol] 24 mmol/L Normal 22-30 [facility] Comment on above: Order Comment: Speci men Type: BLOOD SPECIMENOrdering Facility: [facility] Address: [address] [place] [address] Performed By: #### 2 4323-8, 66786-1 ####[facility] [id number] [place] [address] [place] Creatinine [Mass/Vol] 0.55 mg/dL Low 0.58-0.96 [facility] Comment on above: Order Comment: Speci men Type: BLOOD SPECIMENOrdering Facility: [facility] Address: [address] [place] [address] Performed By: #### 2 4323-8, 56000-5 ####[facility] [id number] [place] [address] [place] eGFRcr SerPlBld CKD-EPI 2020 99 mL/min/1.73m??? Normal >=60 [facility] Comment on above: Order Comment: Speci men Type: BLOOD SPECIMENOrdering Facility: [facility] Address: [address] [place] [address] Result Comment: Lupe mated Glomerular Filtration Rate [...] reflect actual GFR. Performed By: #### 2 4323-8, 80396-9 ####[facility] [id number] [place] [address] [place] Glucose [Mass/Vol] 135 mg/dL High 74-99 [facility] Comment on above: Order Comment: Sonia little Type: BLOOD SPECIMENOrdering Facility: [facility] Address: [address] [place] [address] Result Comment: The [place] Diabetes Association (ADA) provides guidance for cutoff values for fasting glucose and random glucose. The ADA defines fasting as no caloric intake for at least 8 hours. Fasting plasma glucose results between 100 to 125 mg/dL indicate increased risk for diabetes (prediabetes).Fasting plasma glucose results greater than or equal to 126 mg/dL meet the criteria for diagnosis of diabetes. In the absence of unequivocal hyperglycemia, results should be confirmed by repeat testing. In a patient with classic symptoms of hyperglycemia or hyperglycemic crisis, random plasma glucose results greater than or equal to 200 mg/dL meet the criteria for diagnosis of diabetes.Reference: Standards of Medical Care in Diabetes 2016, [place] [employer]. Diabetes Care. 2016.39(Suppl 1). Performed By: #### 2 4323-8, 85632-2 ####[facility] [id number] [place] [address] [place] Potassium [Moles/Vol] 3.7 mmol/L Normal 3.7-5.1 [facility] Comment on above: Order Comment: Sonia little Type: BLOOD SPECIMENOrdering Facility: [facility] Address: [address] [place] [address] Performed By: #### 2 4323-8, 45054-2 ####[facility] [id number] [place] [address] [place] Protein [Mass/Vol] 6.9 g/dL Normal 6.3-8.0 [facility] Comment on above: Order Comment: Speci men Type: BLOOD SPECIMENOrdering Facility: [facility] Address: [address] [place] [address] Performed By: #### 2 4323-8, 71127-0 ####[facility] [id number] [place] [address] [place] Sodium [Moles/Vol] 140 mmol/L Normal 136-144 [facility] Comment on above: Order Comment: Speci men Type: BLOOD SPECIMENOrdering Facility: [facility] Address: [address] [place] [address] Performed By: #### 2 4323-8, 85254-9 ####[facility] [id number] [place] [address] [place] Urea nitrogen [Mass/Vol] 10 mg/dL Normal 7-21 [facility] Comment on above: Order Comment: Speci men Type: BLOOD SPECIMENOrdering Facility: [facility] Address: [address] [place] [address] Performed By: #### 2 4323-8, 74775-2 ####[facility] [id number] [place] [address] [place] DPYD/UGT1A1 GENOTYPING PANEL on 04-09-2025 DPYD/UGT1A1 GENOTYPING PANEL RESULT Normal [facility] Comment on above: Order Comment: Speci men Type: BLOOD SPECIMENOrdering Facility: [facility] Address: [address] [place] [address] Result Comment: [facility] RotaryView (PGx) DPYD and UGT1A1 GenotypingLaboratory Accession Number: [id number] Genotype: *1/*1DPYD Activity Score: 2DPYD Predicted Phenotype: DPYD Normal HhdqnfavdcqUHG4C1 Genotype: *1/*5NYB7X7 Predicted Phenotype: UGT1A1 Normal MetabolizerInterpretation:Two normal function alleles were observed in the DPYD gene (seevariant details below) resulting in an activity score of 2. Thisactivity score is associated with a DPYD normal metabolizer phenotype.DPYD normal metabolizers are not expected to require (based onpharmacogenomic results alone) selective adjustment of the dose ofmedications metabolized by DPD. Please consult a clinical pharmacistfor more information regarding drug therapy. Questions regardingmolecular testing details should be directed .Two normal function UGT1A1 alleles or one normal function alleleand one increased function UGT1A1 allele or two increased function UTG1A1 alleles were observed in this sample (see variant detailsbelow). This is associated with a UGT1A1 normal metabolizer phenotype.UGT1A1 normal metabolizers are not expected to require (based onpharmacogenomic results alone) selective adjustment of the dose ofmedications metabolized by UGT. Please consult a clinical pharmacistfor more information regarding drug therapy. Questions regardingmolecular testing details should be directed .The DPYD gene encodes dihydropyrimidine dehydrogenase (DPD). Thisenzyme is involved in the metabolism of fluoropyrimidines. The THL4N1lxdz encodes UDP-glucuronosyltransferase (UGT). UGT is involved in themetabolism of certain medications including ones used in oncology. Forclinical correlation, drug-specific guidelines are available toprovide phenotype assignment and therapeutic recommendations based onphenotype. Patients who carry genetic variants associated with alteredmetabolism may be at risk for an adverse or poor response to drugsthat are predominantly metabolized by the associated enzyme (DPD orUGT). For patients with altered DPD and/or UGT activity, alternativepharmacological agents or dosing adjustments may be needed formedications metabolized by this enzyme to avoid an unexpected oradverse response.Please note that this DPYD genotyping test includes variants that maynot have been assayed in a previous test performed elsewhere. If thereis discordance of phenotype results between laboratories, it is likelya function of the different variants assayed in each test. Themethodology section of the report (see below) lists the variantsinterrogated by this test.DPYD Additional Information:In addition to increased risk of 5-fluorouracil toxicity, variants inthe DPYD gene may be associated with DPD deficiency, an autosomalrecessive inborn error of metabolism (OMIM: 593601). DPD deficiencyexhibits a wide range of phenotypic variability, from no symptoms to travis rare severe neurological disorder with onset in infancy orchildhood (prevalence unknown). For the vast majority of affectedindividuals, the first and only symptom is sensitivity to5-fluorouracil and capecitabine. It is possible that individuals withDPD deficiency may be identified by the presence of two no-function DPYD variants (activity score = 0). However, this test is designed asa pharmacogenomic test and is not intended as a diagnostic or carriertest for DPD deficiency. A formal genetics consultation is recommendedfor those with concerns regarding DPD deficiency.Limitations:DNA studies do not provide a definitive genetic or pharmacogenomicrisk in all individuals. This test is designed to detect a specificset of variants (see list below) in the DPYD gene (OMIM 134492) pnlGLT6H2 gene (OMIM 048223). This test does not detect all sequencevariants in either gene. Uncommon variants or single nucleotidepolymorphisms may affect binding of primers and probes and may resultin false negative, false positive, or indeterminate results. Theabsence of abnormal variants as analyzed in this test is interpretedas the presence of *1/*1 (wild type/normal) genotype. The phenotypeprovided in the interpretation may be impacted by undetected geneticand/or non-genetic factors such as drug-drug interactions.Methodology:Purified genomic DNA was subjected to polymerase chain reaction-basedamplification. The DPYD (NM_000110.3) and UGT1A1 (NM_000463.3) geneswere interrogated for known, clinically relevant variants. Primerextension products were analyzed using matrix-assisted laserdesorption/ionization massspectrometry, and specific genotypesassigned were then translated to the appropriate star (*) allele (DPYDand UGT1A1) and activity score (DPYD), see lists below. The referencegenome used is GRCh38/hg38.UGT1A1 star alleles: *1, *6, *27, *28, *36, *37, *80, *80+*28,*80+*36, and *80+*37. These alleles are detected using the presence orabsence of the following variants, RefSNP ID: [id number], [id number] (TA repeats), and [id number].DPYD star alleles and targeted variants:RefSNP ID Legacy Total Allele Highest Allele Name Frequency Frequency General Population (Population)No variantdetected *[id number] *2A 0.6% 2.4% (Eur F)[id number] *8 0.01% 0.03% (S )[id number] *10 n/[id number] *12 0.0008% 0.003% (S )hc51608041 *13 0.03% 0.06% (Eur F)[id number] Y186C 0.2% 2.15% ()[id number] c.2846A>T 0.3% 0.5% (Eur NF)mf22225972 HapB3 1.4% 2.1 % (Eur NF)[id number] HapB3(c.1236G>A) 1.4% 2.1% (Eur NF)Population frequencies are from gnomAD and may be different inspecific ethnic groups. The allele frequency shown is the total allelefrequency in all populations. The highest allele frequency for asingle population is also noted (Eur F = South [place], Eur NF = non-South Korean, S = South ). Note: [id number] (HapB3)and [id number] (c.1236G>A) are in linkage disequilibrium thus aretypically seen together.References:1) Clinical Pharmacogenetics Implementation Consortium (CPIC):www.CPICpgx.org2) Pharmacogene Variation Consortium (PharmVar): www.PharmVar.org3) Genome Aggregation Database V2.1.1 (gnomAD), accessed September2021, https://gnomad.broadinstitute.org4) Deepak M, Dontrell REESE, Shailesh JM, et al. PharmacogenomicsKnowledge for Personalized Medicine Clinical Pharmacology andTherapeutics (2012) 92(4): 414-417.5) Noah U, Rishi BARBOZA, Jerome SM, et al. Clinical PharmacogeneticsImplementation Consortium (CPIC) Guideline for DihydropyrimidineDehydrogenase Genotype and Fluoropyrimidine Dosin Update. ClinPharmacol Ther. 2018;103(2):210-216.6) [employer], [employer] Library of Medicine 2020. Dihydropyrimidinedehydrogenase deficiency, accessed 11 April 2021,https://medlineplus.gov/genetics/condition/dihydropyrimidine -dehydrogenase-deficiency/#resources7) Henry N, Carl GONZALEZ, Debra RODM, jocelin Davis ABP. Purine andPyrimidine Metabolism: Pyrimidine Metabolism: DihydropyrimidineDehydrogenase. Bharathi and Nahid's Principles and Practice of MedicalGenetics and Genomics: Metabolic Disorders, Seventh Edition. Edited byDanielle Davis al, Elsevier. 2020. Sections 6.3.4 - 6.3.4.4https://wij-uusoxfuzfpx-seh.ccmain.[facility].org/#!/content/ book/3-s2.0-P8709615438268618047?scrollTo=%39ue03997884) Paloma RS, Chaparrita MH, Claire CE, et al. Clinical PharmacogeneticsImplementation Consortium (CPIC) Guideline for UGT1A1 and AtazanavirPrescribing. Clinical Pharmacology and Therapeutics (2016) Apr;99(4):363-9.9) Lauryn Smith. Overview of Glibert's syndrome. Drug TherBull. 2019 Oct 57(2):27-30.10) [facility] 2020, Gilbert Syndrome, accessed 11 April 2021,https://[email or web address] [email or web address]-syndromeDisclaimer:This test was developed and its performance characteristics determinedby [facility]'s Pathology and Laboratory Medicine Department. Ithas not been cleared or approved by the FDA. [facility] is regulated under CLIAas certified to perform high-complexity testing. This test is used forclinical purposes. It should not be regarded as investigational or forresearch.Test performed at [facility], [address] [place] [address], [id number]. CLIA Number: [id number] performed by Leia Chino, PhD, [facility] Performed By: #### D UPNL1 ####[facility] [id number] [place] [address] [place] Ferritin SerPl-mCncon 2024 Ferritin [Mass/Vol] 1193.0 ng/mL High 14.7-205.1 [facility] Comment on above: Order Comment: Speci men Type: BLOOD SPECIMENOrdering Facility: [facility] Address: [address] [place] [address] Performed By: #### 2 276-4 ####[facility] [id number] [place] [address] [place] Iron and Iron binding capaci ty panelon 04-09-2025 Iron [Mass/Vol] 61 ug/dL Normal 41-186 [facility] Comment on above: Order Comment: Speci men Type: BLOOD SPECIMENOrdering Facility: [facility] Address: [address] [place] [address] Performed By: #### 2 4323-8, 49329-0 ####[facility] [id number] [place] [address] [place] Iron binding capacity [Mass/Vol] 267 ug/dL Normal 232-386 [facility] Comment on above: Order Comment: Speci men Type: BLOOD SPECIMENOrdering Facility: [facility] Address: [address] [place] [address] Performed By: #### 2 4323-8, 69051-4 ####[facility] [id number] [place] [address] [place] Iron/TIBC [Molar ratio] 22.8 % Normal 15.0-57.0 [facility] Comment on above: Order Comment: Speci men Type: BLOOD SPECIMENOrdering Facility: [facility] Address: [address] [place] [address] Performed By: #### 2 4323-8, 04044-6 ####[facility] [id number] [place] [address] [place] AVASTIN (BEVACIZUMAB) 1.25MG INTRAVITREAL INJECTION OS (LEFT EYE)on 04-05-2025 [facility] OCT ANGIOGRAPHY OU (BOTH EYE S)on 04-05-2025 [facility] Radiology Study observation (narrative) [facility] OCT MACULA CIRRUS OU (BOTH E YES)on 04-05-2025 [facility] Radiology Study observation (narrative) [facility] CNPNon 03-29-2025 CNPN Normal [facility] Basic metabolic 2000 panelon 03-25-2025 Anion gap [Moles/Vol] 10 mmol/L Normal 8-15 [facility] Comment on above: Order Comment: Speci men Type: BLOOD SPECIMENOrdering Facility: [facility] Address: [address] [place] [address] Performed By: #### 2 432-2, , 2776-09 ####[facility] [id number] [place] [address] [place] Calcium [Mass/Vol] 8.4 mg/dL Low 8.5-10.2 [facility] Comment on above: Order Comment: Speci men Type: BLOOD SPECIMENOrdering Facility: [facility] Address: [address] [place] [address] Performed By: #### 2 4321-2, , 2776-09 ####[facility] [id number] [place] [id number] [place] Chloride [Moles/Vol] 104 mmol/L Normal 98-107 [facility] Comment on above: Order Comment: Speci men Type: BLOOD SPECIMENOrdering Facility: [facility] Address: [address] [place] [address] Performed By: #### 2 4321-2, , 2776- ####[facility] [id number] [place] [address] [place] CO2 [Moles/Vol] 24 mmol/L Normal 22-30 [facility] Comment on above: Order Comment: Speci men Type: BLOOD SPECIMENOrdering Facility: [facility] Address: [address] [place] [address] Performed By: #### 2 4321-2, , 2776-09 ####[facility] LABCLIA [id number] [place] [address] [place] Creatinine [Mass/Vol] 0.59 mg/dL Normal 0.58-0.96 [facility] Comment on above: Order Comment: Speci men Type: BLOOD SPECIMENOrdering Facility: [facility] Address: [address] [place] [address] Performed By: #### 2 4321-2, , 2776-09 ####[facility] [id number] [place] [address] [place] Creatinine and Glomerular filtration rate.predicted panel (S/P/Bld) 97 mL/min/1.73m??? Normal >=60 [facility] Comment on above: Order Comment: Speci men Type: BLOOD SPECIMENOrdering Facility: [facility] Address: [address] [place] [address] Result Comment: Lupe mated Glomerular Filtration Rate [...] reflect actual GFR. Performed By: #### 2 4321-2, , 2776-09 ####[facility] LABCL[facility] [id number] [place] [address] [place] Glucose [Mass/Vol] 104 mg/dL High 74-99 [facility] Comment on above: Order Comment: Speci men Type: BLOOD SPECIMENOrdering Facility: [facility] Address: [address] [place], [place] [address] Result Comment: The [place] Diabetes Association (ADA) provides guidance for cutoff values for fasting glucose and random glucose. The ADA defines fasting as no caloric intake for at least 8 hours. Fasting plasma glucose results between 100 to 125 mg/dL indicate increased risk for diabetes (prediabetes).Fasting plasma glucose results greater than or equal to 126 mg/dL meet the criteria for diagnosis of diabetes. In the absence of unequivocal hyperglycemia, results should be confirmed by repeat testing. In a patient with classic symptoms of hyperglycemia or hyperglycemic crisis, random plasma glucose results greater than or equal to 200 mg/dL meet the criteria for diagnosis of diabetes.Reference: Standards of Medical Care in Diabetes 2016, [place] [employer] Association. Diabetes Care. 2016.39(Suppl 1). Performed By: #### 2 4321-2, , 2776-09 ####[facility] LABCLIA [id number] [place] [id number] [place] Potassium [Moles/Vol] 3.9 mmol/L Normal 3.7-5.1 [facility] Comment on above: Order Comment: Speci men Type: BLOOD SPECIMENOrdering Facility: [facility] Address: [address] [place] [address] Performed By: #### 2 4321-2, , 2776-09 ####[facility] LABCLIA [id number] [address] [address] [place] Sodium [Moles/Vol] 138 mmol/L Normal 136-144 [facility] Comment on above: Order Comment: Speci men Type: BLOOD SPECIMENOrdering Facility: [facility] Address: [address] [place] [address] Performed By: #### 2 4321-2, , 2776-09 ####[facility] LABCLIA [id number] [address] [address] [place] Urea nitrogen [Mass/Vol] 4 mg/dL Low 7-21 [facility] Comment on above: Order Comment: Speci men Type: BLOOD SPECIMENOrdering Facility: [facility] Address: [address] [place] [address] Performed By: #### 2 4321-2, 32985-0, 2777-1 ####[facility] LABCLIA [id number] [facility] [address] [place] [address] [place] CASE MANAGEMon 03-25-2025 CASE MANAGEM Normal [facility] CBC panel Auto (Bld)on 03-25 Erythrocyte distribution width (RBC) [Ratio] 19.4 % High 11.5-15.0 [facility] Comment on above: Order Comment: Speci men Type: BLOOD SPECIMENOrdering Facility: [facility] Address: [address] [place] [address] Performed By: #### 5 8410-2 ####[facility] LABCLIA [id number] [address], [place] [address] [place] Hematocrit (Bld) [Volume fraction] 35.9 % Low 36.0-46.0 [facility] Comment on above: Order Comment: Speci men Type: BLOOD SPECIMENOrdering Facility: [facility] Address: [address] [place] [address] Performed By: #### 5 8410-2 ####[facility] LABCLIA [id number] [facility] [address], [facility] [place] Hemoglobin (Bld) [Mass/Vol] 10.9 g/dL Low 11.5-15.5 [facility] Comment on above: Order Comment: Speci men Type: BLOOD SPECIMENOrdering Facility: [facility] Address: [address] [place] [address] Performed By: #### 5 8410-2 ####[facility] LABCLIA [id number] [facility] [address] [place] [address] [place] MCH (RBC) [Entitic mass] 26.3 pg Normal 26.0-34.0 [facility] Comment on above: Order Comment: Speci men Type: BLOOD SPECIMENOrdering Facility: [facility] Address: [address] [place] [address] Performed By: #### 5 8410-2 ####[facility] [id number] [place] [address] [place] MCHC (RBC) [Mass/Vol] 30.4 g/dL Low 30.5-36.0 [facility] Comment on above: Order Comment: Speci men Type: BLOOD SPECIMENOrdering Facility: [facility] Address: [address] [place] [address] Performed By: #### 5 8410-2 ####[facility] [id number] [place] [address] [place] MCV (RBC) [Entitic vol] 86.7 fL Normal 80.0-100.0 [facility] Comment on above: Order Comment: Speci men Type: BLOOD SPECIMENOrdering Facility: [facility] Address: [address] [place] [address] Performed By: #### 5 8410-2 ####[facility] [id number] [place] [address] [place] Nucleated RBC (Bld) [#/Vol] 10*3/uL Normal <0.01 [facility] Comment on above: Order Comment: Speci men Type: BLOOD SPECIMENOrdering Facility: [facility] Address: [address] [place] [address] Performed By: #### 5 8410-2 ####[facility] [id number] [place] [address] [place] Platelet mean volume (Bld) [Entitic vol] 9.2 fL Normal 9.0-12.7 [facility] Comment on above: Order Comment: Speci men Type: BLOOD SPECIMENOrdering Facility: [facility] Address: [address] [place] [address] Performed By: #### 5 8410-2 ####[facility] [id number] [address] [address] [place] Platelets (Bld) [#/Vol] 451 10*3/uL High 150-400 [facility] Comment on above: Order Comment: Speci men Type: BLOOD SPECIMENOrdering Facility: [facility] Address: [address] [place] [address] Performed By: #### 5 8410-2 ####[facility] [id number] [place] [address] [place] RBC (Bld) [#/Vol] 4.14 10*6/uL Normal 3.90-5.20 [facility] Comment on above: Order Comment: Speci men Type: BLOOD SPECIMENOrdering Facility: [facility] Address: [address] [place] [address] Performed By: #### 5 8410-2 ####[facility] [id number] [place] [address] [place] WBC (Bld) [#/Vol] 6.36 10*3/uL Normal 3.70-11.00 [facility] Comment on above: Order Comment: Speci men Type: BLOOD SPECIMENOrdering Facility: [facility] Address: [address] [place] [address] Performed By: #### 5 8410-2 ####[facility] [id number] [place] [address] [place] CNDSon 03-25-2025 CNDS Normal [facility] Magnesium SerPl-mCncon 03-25 Magnesium [Mass/Vol] 2.2 mg/dL Normal 1.7-2.3 [facility] Comment on above: Order Comment: Speci men Type: BLOOD SPECIMENOrdering Facility: [facility] Address: [address] [place] [address] Performed By: #### 2 4321-2, 95233-2, 2776- ####[facility] LABCLIA [id number] [address] [address] [place] Phosphate SerPl-mCncon 03-25 Phosphate [Mass/Vol] 3.3 mg/dL Normal 2.7-4.8 [facility] Comment on above: Order Comment: Speci men Type: BLOOD SPECIMENOrdering Facility: [facility] Address: [address] [place] [address] Performed By: #### 2 4321-2, 65265-1, 277- ####[facility] [id number] [place] [address] [place] Basic metabolic 2000 panelon 03-24-2025 Anion gap [Moles/Vol] 11 mmol/L Normal 8-15 [facility] Comment on above: Order Comment: Speci men Type: BLOOD SPECIMENOrdering Facility: [facility] Address: [address] [place] [address] Performed By: #### 1 9123-9, 40737-7, 2777- ####[facility] [id number] [place] [address] [place] Calcium [Mass/Vol] 8.7 mg/dL Normal 8.5-10.2 [facility] Comment on above: Order Comment: Speci men Type: BLOOD SPECIMENOrdering Facility: [facility] Address: [address] [place] [address] Performed By: #### 1 9123-9, 18520-9, 2777- ####[facility] [id number] [place] [id number] [place] Chloride [Moles/Vol] 105 mmol/L Normal 98-107 [facility] Comment on above: Order Comment: Speci men Type: BLOOD SPECIMENOrdering Facility: [facility] Address: [address] [place] [address] Performed By: #### 1 9123-9, 30535-6, 2776-09 ####[facility] [id number] [place] [address] [place] CO2 [Moles/Vol] 22 mmol/L Normal 22-30 [facility] Comment on above: Order Comment: Speci men Type: BLOOD SPECIMENOrdering Facility: [facility] Address: [address] [place] [address] Performed By: #### 1 9123-9, 60135-1, 2776-09 ####[facility] LABIA [id number] [place] [address] [place] Creatinine [Mass/Vol] 0.55 mg/dL Low 0.58-0.96 [facility] Comment on above: Order Comment: Speci men Type: BLOOD SPECIMENOrdering Facility: [facility] Address: [address] [place] [address] Performed By: #### 1 91239, 26415-2, 2776-09 ####[facility] LABIA [id number] [place] [address] [place] Creatinine and Glomerular filtration rate.predicted panel (S/P/Bld) 99 mL/min/1.73m??? Normal >=60 [facility] Comment on above: Order Comment: Speci men Type: BLOOD SPECIMENOrdering Facility: [facility] Address: [address] [place] [address] Result Comment: Lupe mated Glomerular Filtration Rate [...] accurately reflect actual GFR. Performed By: #### 1 9123-9, 48930-3, 2776- ####[facility] LABIA [id number] [place] [id number] [place] Glucose [Mass/Vol] 100 mg/dL High 74-99 [facility] Comment on above: Order Comment: Speci men Type: BLOOD SPECIMENOrdering Facility: [facility] Address: [address] [place] [address] Result Comment: The [place] [employer] (ADA) provides guidance for cutoff values for fasting glucose and random glucose. The ADA defines fasting as no caloric intake for at least 8 hours. Fasting plasma glucose results between 100 to 125 mg/dL indicate increased risk for diabetes (prediabetes).Fasting plasma glucose results greater than or equal to 126 mg/dL meet the criteria for diagnosis of diabetes. In the absence of unequivocal hyperglycemia, results should be confirmed by repeat testing. In a patient with classic symptoms of hyperglycemia or hyperglycemic crisis, random plasma glucose results greater than or equal to 200 mg/dL meet the criteria for diagnosis of diabetes.Reference: Standards of Medical Care in Diabetes 2016, [employer]. Diabetes Care. 2016.39(Suppl 1). Performed By: #### 1 9123-9, 70895-3, 277- ####[facility] LABCLIA [id number] [place] [address] [place] Potassium [Moles/Vol] 3.9 mmol/L Normal 3.7-5.1 [facility] Comment on above: Order Comment: Speci men Type: BLOOD SPECIMENOrdering Facility: [facility] Address: [address] [place] [address] Performed By: #### 1 9123-9, 72689-3, 277- ####[facility] LABCLIA [id number] [place] [id number] [place] Sodium [Moles/Vol] 138 mmol/L Normal 136-144 [facility] Comment on above: Order Comment: Speci men Type: BLOOD SPECIMENOrdering Facility: [facility] Address: [address] [place] [address] Performed By: #### 1 9123-9, 50606-3, 277- ####[facility] LABCLIA [id number] [place] [id number] [place] Urea nitrogen [Mass/Vol] 3 mg/dL Low 7-21 [facility] Comment on above: Order Comment: Speci men Type: BLOOD SPECIMENOrdering Facility: [facility] Address: [address] [place] [address] Performed By: #### 1 9123-9, 09253-8, 2777-1 ####[facility] LABIA [id number] [place] [id number] [place] CASE MANAGEMon 03-24-2025 CASE MANAGEM Normal [facility] CBC panel Auto (Bld)on 03-24 Erythrocyte distribution width (RBC) [Ratio] 19.2 % High 11.5-15.0 [facility] Comment on above: Order Comment: Speci men Type: BLOOD SPECIMENOrdering Facility: [facility] Address: [address] [place] [address] Performed By: #### 5 8410-2 ####[facility] LABIA [id number] [place] [address] [place] Hematocrit (Bld) [Volume fraction] 38.2 % Normal 36.0-46.0 [facility] Comment on above: Order Comment: Speci men Type: BLOOD SPECIMENOrdering Facility: [facility] Address: [address] [place] [address] Performed By: #### 5 8410-2 ####[facility] LABIA [id number] [place] [id number] [place] Hemoglobin (Bld) [Mass/Vol] 11.3 g/dL Low 11.5-15.5 [facility] Comment on above: Order Comment: Speci men Type: BLOOD SPECIMENOrdering Facility: [facility] Address: [address] [place] [address] Performed By: #### 5 8410-2 ####[facility] LABCLIA [id number] [address] [place] MCH (RBC) [Entitic mass] 26.0 pg Normal 26.0-34.0 [facility] Comment on above: Order Comment: Speci men Type: BLOOD SPECIMENOrdering Facility: [facility] Address: [address] [place] [address] Performed By: #### 5 8410-2 ####[facility] LABIA [id number] [place] [address] [place] MCHC (RBC) [Mass/Vol] 29.6 g/dL Low 30.5-36.0 [facility] Comment on above: Order Comment: Speci men Type: BLOOD SPECIMENOrdering Facility: [facility] Address: [address] [place] [address] Performed By: #### 5 8410-2 ####[facility] LABIA [id number] [place] [address] [place] MCV (RBC) [Entitic vol] 87.8 fL Normal 80.0-100.0 [facility] Comment on above: Order Comment: Speci men Type: BLOOD SPECIMENOrdering Facility: [facility] Address: [address] [place] [address] Performed By: #### 5 8410-2 ####[facility] LABIA [id number] [place] [address] [place] Nucleated RBC (Bld) [#/Vol] 10*3/uL Normal <0.01 [facility] Comment on above: Order Comment: Speci men Type: BLOOD SPECIMENOrdering Facility: [facility] Address: [address] [place] [address] Performed By: #### 5 8410-2 ####[facility] LABCLIA [id number] [place] [address] [place] Platelet mean volume (Bld) [Entitic vol] 8.9 fL Low 9.0-12.7 [facility] Comment on above: Order Comment: Speci men Type: BLOOD SPECIMENOrdering Facility: [facility] Address: [address] [place] [address] Performed By: #### 5 8410-2 ####[facility] LABCLIA [id number] [place] [id number] [place] Platelets (Bld) [#/Vol] 463 10*3/uL High 150-400 [facility] Comment on above: Order Comment: Speci men Type: BLOOD SPECIMENOrdering Facility: [facility] Address: [address] [place] [address] Performed By: #### 5 8410-2 ####[facility] LABIA [id number] [place] [address] [place] RBC (Bld) [#/Vol] 4.35 10*6/uL Normal 3.90-5.20 [facility] Comment on above: Order Comment: Speci men Type: BLOOD SPECIMENOrdering Facility: [facility] Address: [address] [place] [address] Performed By: #### 5 8410-2 ####[facility] LABIA [id number] [place] [address] [place] WBC (Bld) [#/Vol] 7.13 10*3/uL Normal 3.70-11.00 [facility] Comment on above: Order Comment: Speci men Type: BLOOD SPECIMENOrdering Facility: [facility] Address: [address] [place] [address] Performed By: #### 5 8410-2 ####[facility] LABIA [id number] [place] [id number] [place] Magnesium SerPl-mCncon 03-24 Magnesium [Mass/Vol] 2.1 mg/dL Normal 1.7-2.3 [facility] Comment on above: Order Comment: Speci men Type: BLOOD SPECIMENOrdering Facility: [facility] Address: [address] [place], [place] [address] Performed By: #### 1 9123-9, 43769-0, 2776- ####[facility] LABCLIA [id number] [facility] [address] [place] [address] [place] NUTRITIONon 03-24-2025 NUTRITION Normal [facility] PT EDon 03-24-2025 PT ED Normal [facility] Phosphate SerPl-mCncon 03-24 Phosphate [Mass/Vol] 3.5 mg/dL Normal 2.7-4.8 [facility] Comment on above: Order Comment: Speci men Type: BLOOD SPECIMENOrdering Facility: [facility] Address: [address] [place] [address] Performed By: #### 1 9123-9, 89301-7, 2776- ####[facility] LABCLIA [id number] [facility] [address] [place] [address] [place] Basic metabolic 2000 panelon 03-23-2025 Anion gap [Moles/Vol] 11 mmol/L Normal 8-15 [facility] Comment on above: Order Comment: Speci men Type: BLOOD SPECIMENOrdering Facility: [facility] Address: [address] [place], [place] [address] Performed By: #### 2 4321-2, , 2776-09 ####[facility] LABCLIA [id number] [facility] [address] [place] [address] [place] Calcium [Mass/Vol] 8.5 mg/dL Normal 8.5-10.2 [facility] Comment on above: Order Comment: Speci men Type: BLOOD SPECIMENOrdering Facility: [facility] Address: [address] [place] [address] Performed By: #### 2 4321-2, 62948-6, 2776- ####[facility] LABCLIA [id number] [facility] [address] [place] [address] [place] Chloride [Moles/Vol] 103 mmol/L Normal 98-107 [facility] Comment on above: Order Comment: Speci men Type: BLOOD SPECIMENOrdering Facility: [facility] Address: [address] [place] [address] Performed By: #### 2 4321-2, , 2776-09 ####[facility] LABCLIA [id number] [place] [address] [place] CO2 [Moles/Vol] 23 mmol/L Normal 22-30 [facility] Comment on above: Order Comment: Speci men Type: BLOOD SPECIMENOrdering Facility: [facility] Address: [address] [place] [address] Performed By: #### 2 4321-2, , 2776-09 ####[facility] LABCLIA [id number] [place] [address] [place] Creatinine [Mass/Vol] 0.53 mg/dL Low 0.58-0.96 [facility] Comment on above: Order Comment: Speci men Type: BLOOD SPECIMENOrdering Facility: [facility] Address: [address] [place] [address] Performed By: #### 2 4321-2, , 2776-09 ####[facility] LABIA [id number] [place] [address] [place] Creatinine and Glomerular filtration rate.predicted panel (S/P/Bld) 100 mL/min/1.73m??? Normal >=60 [facility] Comment on above: Order Comment: Speci men Type: BLOOD SPECIMENOrdering Facility: [facility] Address: [address] [place] [address] Result Comment: Lupe mated Glomerular Filtration Rate [...] reflect actual GFR. Performed By: #### 2 4321-2, , 2776-09 ####[facility] LABCLIA [id number] [facility] [address] [address] [place] Glucose [Mass/Vol] 111 mg/dL High 74-99 [facility] Comment on above: Order Comment: Speci men Type: BLOOD SPECIMENOrdering Facility: [facility] Address: [address] [place] [address] Result Comment: The [place] [employer] (ADA) provides guidance for cutoff values for fasting glucose and random glucose. The ADA defines fasting as no caloric intake for at least 8 hours. Fasting plasma glucose results between 100 to 125 mg/dL indicate increased risk for diabetes (prediabetes).Fasting plasma glucose results greater than or equal to 126 mg/dL meet the criteria for diagnosis of diabetes. In the absence of unequivocal hyperglycemia, results should be confirmed by repeat testing. In a patient with classic symptoms of hyperglycemia or hyperglycemic crisis, random plasma glucose results greater than or equal to 200 mg/dL meet the criteria for diagnosis of diabetes.Reference: Standards of Medical Care in Diabetes 2016, [place] [employer]. Diabetes Care. 2016.39(Suppl 1). Performed By: #### 2 4321-2, , 2776-09 ####[facility] LABCLIA [id number] [facility] [address] [address] [place] Potassium [Moles/Vol] 3.7 mmol/L Normal 3.7-5.1 [facility] Comment on above: Order Comment: Speci men Type: BLOOD SPECIMENOrdering Facility: [facility] Address: [address] [place] [address] Performed By: #### 2 432-2, , 2776-09 ####[facility] LABIA [id number] [facility] [id number] [place] [address] [place] Sodium [Moles/Vol] 137 mmol/L Normal 136-144 [facility] Comment on above: Order Comment: Speci men Type: BLOOD SPECIMENOrdering Facility: [facility] Address: [address] [place] [address] Performed By: #### 2 4321-2, 63379-1, 27771 ####[facility] LABCLIA [id number] [place] [address] [place] Urea nitrogen [Mass/Vol] 3 mg/dL Low 7-21 [facility] Comment on above: Order Comment: Speci men Type: BLOOD SPECIMENOrdering Facility: [facility] Address: [address] [place] [address] Performed By: #### 2 4321-2, , 27703-23 ####[facility] LABIA [id number] [place] [address] [place] C diff Tox gens Stl Ql DIANA+p robeon 03-23-2025 C. difficile toxin genes DIANA+probe Ql (Stl) Negative Normal Negative for C. difficile toxin by PCR [facility] Comment on above: Order Comment: Speci men Type: STOOL SPECIMENOrdering Facility: [facility] Address: [address] [place] [address] Performed By: #### 5 4067-4 ####[facility] LABIA [id number] [place] [address] [place] CBC panel Auto (Bld)on 03-23 Erythrocyte distribution width (RBC) [Ratio] 19.0 % High 11.5-15.0 [facility] Comment on above: Order Comment: Speci men Type: BLOOD SPECIMENOrdering Facility: [facility] Address: [address] [place] [address] Performed By: #### 5 8410-2 ####[facility] LABIA [id number] [place] [address] [place] Hematocrit (Bld) [Volume fraction] 40.4 % Normal 36.0-46.0 [facility] Comment on above: Order Comment: Speci men Type: BLOOD SPECIMENOrdering Facility: [facility] Address: [address] [place] [address] Performed By: #### 5 8410-2 ####[facility] [id number] [place] [address] [place] Hemoglobin (Bld) [Mass/Vol] 11.8 g/dL Normal 11.5-15.5 [facility] Comment on above: Order Comment: Speci men Type: BLOOD SPECIMENOrdering Facility: [facility] Address: [address] [place] [address] Performed By: #### 5 8410-2 ####[facility] [id number] [place] [address] [place] MCH (RBC) [Entitic mass] 25.9 pg Low 26.0-34.0 [facility] Comment on above: Order Comment: Speci men Type: BLOOD SPECIMENOrdering Facility: [facility] Address: [address] [place] [address] Performed By: #### 5 8410-2 ####[facility] [id number] [place] [address] [place] MCHC (RBC) [Mass/Vol] 29.2 g/dL Low 30.5-36.0 [facility] Comment on above: Order Comment: Speci men Type: BLOOD SPECIMENOrdering Facility: [facility] Address: [address] [place] [address] Performed By: #### 5 8410-2 ####[facility] [id number] [place] [address] [place] MCV (RBC) [Entitic vol] 88.6 fL Normal 80.0-100.0 [facility] Comment on above: Order Comment: Speci men Type: BLOOD SPECIMENOrdering Facility: [facility] Address: [address] [place] [address] Performed By: #### 5 8410-2 ####[facility] LABCLIA [id number] [address] [place] [address] [place] Nucleated RBC (Bld) [#/Vol] 10*3/uL Normal <0.01 [facility] Comment on above: Order Comment: Speci men Type: BLOOD SPECIMENOrdering Facility: [facility] Address: [address] [place] [address] Performed By: #### 5 8410-2 ####[facility] LABIA [id number] [address], [place] [address] [place] Platelet mean volume (Bld) [Entitic vol] 9.3 fL Normal 9.0-12.7 [facility] Comment on above: Order Comment: Speci men Type: BLOOD SPECIMENOrdering Facility: [facility] Address: [address] [place] [address] Performed By: #### 5 8410-2 ####[facility] LABIA [id number] [place] [address] [place] Platelets (Bld) [#/Vol] 571 10*3/uL High 150-400 [facility] Comment on above: Order Comment: Speci men Type: BLOOD SPECIMENOrdering Facility: [facility] Address: [address] [place] [address] Performed By: #### 5 8410-2 ####[facility] LABIA [id number] [address], [place] [address] [place] RBC (Bld) [#/Vol] 4.56 10*6/uL Normal 3.90-5.20 [facility] Comment on above: Order Comment: Speci men Type: BLOOD SPECIMENOrdering Facility: [facility] Address: [address] [place] [address] Performed By: #### 5 8410-2 ####[facility] LABIA [id number] [address], [facility] [place] WBC (Bld) [#/Vol] 10.69 10*3/uL Normal 3.70-11.00 [facility] Comment on above: Order Comment: Speci men Type: BLOOD SPECIMENOrdering Facility: [facility] Address: [address] [place] [address] Performed By: #### 5 8410-2 ####[facility] LABCLIA [id number] [place] [address] [place] Magnesium [facility] Magnesium [Mass/Vol] 2.1 mg/dL Normal 1.7-2.3 [facility] Comment on above: Order Comment: Speci men Type: BLOOD SPECIMENOrdering Facility: [facility] Address: [address] [place] [address] Performed By: #### 2 4321-2, , 2777- ####[facility] LABCLIA [id number] [place] [address] [place] Phosphate SerPl-mCncon 03-23 Phosphate [Mass/Vol] 3.0 mg/dL Normal 2.7-4.8 [facility] Comment on above: Order Comment: Speci men Type: BLOOD SPECIMENOrdering Facility: [facility] Address: [address] [place] [address] Performed By: #### 2 4321-2, , 277- ####[facility] LABCLIA [id number] [place] [id number] [place] Basic metabolic 2000 panelon 03-22-2025 Anion gap [Moles/Vol] 9 mmol/L Normal 8-15 [facility] Comment on above: Order Comment: Speci men Type: BLOOD SPECIMENOrdering Facility: [facility] Address: [address] [place] [address] Performed By: #### 2 4321-2, 16650-0, 2777- ####[facility] LABCLIA [id number] [address] [place] [address] [place] Calcium [Mass/Vol] 8.6 mg/dL Normal 8.5-10.2 [facility] Comment on above: Order Comment: Speci men Type: BLOOD SPECIMENOrdering Facility: [facility] Address: [address] [place], [place] [address] Performed By: #### 2 4321-2, , 2776-09 ####[facility] LABCLIA [id number] [address] [place] [address] [place] Chloride [Moles/Vol] 106 mmol/L Normal 98-107 [facility] Comment on above: Order Comment: Speci men Type: BLOOD SPECIMENOrdering Facility: [facility] Address: [address] [place] [address] Performed By: #### 2 4321-2, , 2776-09 ####[facility] LABCLIA [id number] [address], [facility]95 [place] CO2 [Moles/Vol] 23 mmol/L Normal 22-30 [facility] Comment on above: Order Comment: Speci men Type: BLOOD SPECIMENOrdering Facility: [facility] Address: [address] [place], [place] [address] Performed By: #### 2 432-2, , 2776-09 ####[facility] LABCLIA [id number] [address] [place] [address] [place] Creatinine [Mass/Vol] 0.48 mg/dL Low 0.58-0.96 [facility] Comment on above: Order Comment: Speci men Type: BLOOD SPECIMENOrdering Facility: [facility] Address: [address] [place], [place] [address] Performed By: #### 2 4321-2, , 2776-09 ####[facility] LABCLIA [id number] [address] [place] [address] [place] Creatinine and Glomerular filtration rate.predicted panel (S/P/Bld) 102 mL/min/1.73m??? Normal >=60 [facility] Comment on above: Order Comment: Sonia little Type: BLOOD SPECIMENOrdering Facility: [facility] Address: [address] [place] [address] Result Comment: Lupe mated Glomerular Filtration Rate [...] reflect actual GFR. Performed By: #### 2 4321-2, , 2776-09 ####[facility] LABCLIA [id number] [place] [id number] [place] Glucose [Mass/Vol] 132 mg/dL High 74-99 [facility] Comment on above: Order Comment: Sonia little Type: BLOOD SPECIMENOrdering Facility: [facility] Address: [address] [place] [address] Result Comment: The [place] [employer] (ADA) provides guidance for cutoff values for fasting glucose and random glucose. The ADA defines fasting as no caloric intake for at least 8 hours. Fasting plasma glucose results between 100 to 125 mg/dL indicate increased risk for diabetes (prediabetes).Fasting plasma glucose results greater than or equal to 126 mg/dL meet the criteria for diagnosis of diabetes. In the absence of unequivocal hyperglycemia, results should be confirmed by repeat testing. In a patient with classic symptoms of hyperglycemia or hyperglycemic crisis, random plasma glucose results greater than or equal to 200 mg/dL meet the criteria for diagnosis of diabetes.Reference: Standards of Medical Care in Diabetes 2016, [place] [employer]. Diabetes Care. 2016.39(Suppl 1). Performed By: #### 2 4321-2, , 2776-09 ####[facility] LABIA [id number] [address] [address] [place] Potassium [Moles/Vol] 3.9 mmol/L Normal 3.7-5.1 [facility] Comment on above: Order Comment: Speci men Type: BLOOD SPECIMENOrdering Facility: [facility] Address: [address] [place] [address] Performed By: #### 2 4321-2, , 2776-09 ####[facility] LABCLIA [id number] [place] [address] [place] Sodium [Moles/Vol] 138 mmol/L Normal 136-144 [facility] Comment on above: Order Comment: Speci men Type: BLOOD SPECIMENOrdering Facility: [facility] Address: [address] [place] [address] Performed By: #### 2 4321-2, , 2776-09 ####[facility] LABCLIA [id number] [place] [address] [place] Urea nitrogen [Mass/Vol] 3 mg/dL Low 7-21 [facility] Comment on above: Order Comment: Speci men Type: BLOOD SPECIMENOrdering Facility: [facility] Address: [address] [place] [address] Performed By: #### 2 4321-2, , 2776-09 ####[facility] LABCLIA [id number] [place] [id number] [place] CASE MGT INIT ASSESon 2024 CASE MGT INIT ASSES Normal [facility] CBC panel Auto (Bld)on 03-22 Erythrocyte distribution width (RBC) [Ratio] 18.6 % High 11.5-15.0 [facility] Comment on above: Order Comment: Speci men Type: BLOOD SPECIMENOrdering Facility: [facility] Address: [address] [place] [address] Performed By: #### 5 8410-2 ####[facility] LABCLIA [id number] [place] [id number] [place] Hematocrit (Bld) [Volume fraction] 36.0 % Normal 36.0-46.0 [facility] Comment on above: Order Comment: Speci men Type: BLOOD SPECIMENOrdering Facility: [facility] Address: [address] [place] [address] Performed By: #### 5 8410-2 ####[facility] LABCLIA [id number] [place] [address] [place] Hemoglobin (Bld) [Mass/Vol] 11.1 g/dL Low 11.5-15.5 [facility] Comment on above: Order Comment: Speci men Type: BLOOD SPECIMENOrdering Facility: [facility] Address: [address] [place] [address] Performed By: #### 5 8410-2 ####[facility] LABIA [id number] [place] [address] [place] MCH (RBC) [Entitic mass] 26.2 pg Normal 26.0-34.0 [facility] Comment on above: Order Comment: Speci men Type: BLOOD SPECIMENOrdering Facility: [facility] Address: [address] [place] [address] Performed By: #### 5 8410-2 ####[facility] LABIA [id number] [place] [address] [place] MCHC (RBC) [Mass/Vol] 30.8 g/dL Normal 30.5-36.0 [facility] Comment on above: Order Comment: Speci men Type: BLOOD SPECIMENOrdering Facility: [facility] Address: [address] [place] [address] Performed By: #### 5 8410-2 ####[facility] LABIA [id number] [place] [address] [place] MCV (RBC) [Entitic vol] 84.9 fL Normal 80.0-100.0 [facility] Comment on above: Order Comment: Speci men Type: BLOOD SPECIMENOrdering Facility: [facility] Address: [address] [place] [address] Performed By: #### 5 8410-2 ####[facility] LABIA [id number] [place] [address] [place] Nucleated RBC (Bld) [#/Vol] 10*3/uL Normal <0.01 [facility] Comment on above: Order Comment: Speci men Type: BLOOD SPECIMENOrdering Facility: [facility] Address: [address] [place] [address] Performed By: #### 5 8410-2 ####[facility] LABIA [id number] [address], [place] [address] [place] Platelet mean volume (Bld) [Entitic vol] 9.2 fL Normal 9.0-12.7 [facility] Comment on above: Order Comment: Speci men Type: BLOOD SPECIMENOrdering Facility: [facility] Address: [address] [place] [address] Performed By: #### 5 8410-2 ####[facility] LABIA [id number] [place] [address] [place] Platelets (Bld) [#/Vol] 464 10*3/uL High 150-400 [facility] Comment on above: Order Comment: Speci men Type: BLOOD SPECIMENOrdering Facility: [facility] Address: [address] [place] [address] Performed By: #### 5 8410-2 ####[facility] LABIA [id number] [place] [id number] [place] RBC (Bld) [#/Vol] 4.24 10*6/uL Normal 3.90-5.20 [facility] Comment on above: Order Comment: Speci men Type: BLOOD SPECIMENOrdering Facility: [facility] Address: [address] [place] [address] Performed By: #### 5 8410-2 ####[facility] LABCLIA [id number] [place] [address] [place] WBC (Bld) [#/Vol] 9.54 10*3/uL Normal 3.70-11.00 [facility] Comment on above: Order Comment: Speci men Type: BLOOD SPECIMENOrdering Facility: [facility] Address: [address] [place] [address] Performed By: #### 5 8410-2 ####[facility] LABIA [id number] [place] [address] [place] Magnesium SerPl-mCncon 03-22 Magnesium [Mass/Vol] 2.2 mg/dL Normal 1.7-2.3 [facility] Comment on above: Order Comment: Speci men Type: BLOOD SPECIMENOrdering Facility: [facility] Address: [address] [place] [address] Performed By: #### 2 4321-2, 32054-9, 2777-1 ####[facility] [id number] [place] [address] [place] Phosphate SerPl-mCncon 03-22 Phosphate [Mass/Vol] 2.8 mg/dL Normal 2.7-4.8 [facility] Comment on above: Order Comment: Speci men Type: BLOOD SPECIMENOrdering Facility: [facility] Address: [address] [place] [address] Performed By: #### 2 4321-2, 63262-0, 2777-1 ####[facility] LABWH[facility] [id number] [place] [id number] [place] Amylase (Body fld) [Catalyti c activity/Vol]on 03-21-2025 Fluid Nom (Body fld) Abdomen Normal [facility] Comment on above: Order Comment: Speci men Type: FLUID SPECIMENOrdering Facility: [facility] Address: [address] [place] [address] Result Comment: left radha Performed By: #### 1 795-4 ####[facility] LABCLIA [id number] [place] [address] [place] Fluid Nom (Body fld) Abdomen Normal [facility] Comment on above: Order Comment: Speci men Type: FLUID SPECIMENOrdering Facility: [facility] Address: [address] [place] [address] Result Comment: left radha Performed By: #### 1 795-4 ####[facility] LABCLIA [id number] [address] [facility] 5 Amylase (Body fld) [Catalytic activity/Vol] 157 U/L Normal See Comment [facility] Comment on above: Order Comment: Speci men Type: FLUID SPECIMENOrdering Facility: [facility] Address: [address] [place] [address] Result Comment: PLEU RAL FLUIDS:Amylase measurement in pleural fluid is considered a useful test for detecting amylase-rich pleural effusions, which may be caused by exudative conditions associated with pancreatitis, esophageal rupture, malignancy, pneumonia, and liver cirrhosis. A ratio of pleural fluid amylase to a concurrent serum amylase >1 is defined asan amylase-rich pleural effusion.PERITONEAL FLUIDS AND DRAINAGE FLUIDS:Pancreatic damage causes extravasation of amylase from the exocrine cells into the peritoneal space. In cases of pancreatitis, fluid amylase should be at least several-fold times higher in fluid of pancreatic origin compared to concurrent serum amylase values.PANCREATIC CYST FLUID:Pancreatic cyst fluid amylase may aid in characterizing tumors and should be interpreted along with other clinical and laboratory information.References:1. Rachana RAMIREZ, Sanjay Manzano. Body fluid analysis: clinical utility and applicability of published studies to guide interpretation of todays laboratory testing in serous fluids. Crit Rev Clin Lab Sci, 2013;50(4-5):107-124.2. CLSI. Analysis of Body Fluids in Clinical Chemistry; Approved Guideline. CLSI document C49-A. ABIGAIL Zhu: Clinical Laboratory Standards [place]; 2007.3. Jerman CHURCHILL, Adalgisa Roberts. Use of cyst fluid CEA, CA19-9, and amylase for evaluation of pancreatic lesions. Clinical Biochemistry. 2009;42:8961-4894. Performed By: #### 1 795-4 ####[facility] LABCLIA [id number] [place] [address] [place] Amylase (Body fld) [Catalytic activity/Vol] 413 U/L Normal See Comment [facility] Comment on above: Order Comment: Speci men Type: FLUID SPECIMENOrdering Facility: [facility] Address: [address] [place] [address] Result Comment: PLEU RAL FLUIDS:Amylase measurement in pleural fluid is considered a useful test for detecting amylase-rich pleural effusions, which may be caused by exudative conditions associated with pancreatitis, esophageal rupture, malignancy, pneumonia, and liver cirrhosis. A ratio of pleural fluid amylase to a concurrent serum amylase >1 is defined asan amylase-rich pleural effusion.PERITONEAL FLUIDS AND DRAINAGE FLUIDS:Pancreatic damage causes extravasation of amylase from the exocrine cells into the peritoneal space. In cases of pancreatitis, fluid amylase should be at least several-fold times higher in fluid of pancreatic origin compared to concurrent serum amylase values.PANCREATIC CYST FLUID:Pancreatic cyst fluid amylase may aid in characterizing tumors and should be interpreted along with other clinical and laboratory information.References:1. Rachana RAMIREZ, Sanjay Manzano. Body fluid analysis: clinical utility and applicability of published studies to guide interpretation of todays laboratory testing in serous fluids. Crit Rev Clin Lab Sci, 2013;50(4-5):107-124.2. CLSI. Analysis of Body Fluids in Clinical Chemistry; Approved Guideline. CLSI document C49-A. ABIGAIL Zhu: Clinical Laboratory Standards [place]; 2007.3. Jerman CHURCHILL, Adalgisa Roberts. Use of cyst fluid CEA, CA19-9, and amylase for evaluation of pancreatic lesions. Clinical Biochemistry. 2009;42:3085-5977. Performed By: #### 1 795-4 ####[facility] LABCLIA [id number] [place] [id number] [place] CBC panel Auto (Bld)on 03-21 Erythrocyte distribution width (RBC) [Ratio] 17.9 % High 11.5-15.0 [facility] Comment on above: Order Comment: Speci men Type: BLOOD SPECIMENOrdering Facility: [facility] Address: [address] [place] [address] Performed By: #### 5 8410-2 ####[facility] LABIA [id number] [place] [address] [place] Hematocrit (Bld) [Volume fraction] 31.9 % Low 36.0-46.0 [facility] Comment on above: Order Comment: Speci men Type: BLOOD SPECIMENOrdering Facility: [facility] Address: [address] [place] [address] Performed By: #### 5 8410-2 ####[facility] LABIA [id number] [place] [address] [place] Hemoglobin (Bld) [Mass/Vol] 9.7 g/dL Low 11.5-15.5 [facility] Comment on above: Order Comment: Speci men Type: BLOOD SPECIMENOrdering Facility: [facility] Address: [address] [place] [address] Performed By: #### 5 8410-2 ####[facility] LABIA [id number] [place] [address] [place] MCH (RBC) [Entitic mass] 25.6 pg Low 26.0-34.0 [facility] Comment on above: Order Comment: Speci men Type: BLOOD SPECIMENOrdering Facility: [facility] Address: [address] [place] [address] Performed By: #### 5 8410-2 ####[facility] LABIA [id number] [place] [address] [place] MCHC (RBC) [Mass/Vol] 30.4 g/dL Low 30.5-36.0 [facility] Comment on above: Order Comment: Speci men Type: BLOOD SPECIMENOrdering Facility: [facility] Address: [address] [place] [address] Performed By: #### 5 8410-2 ####[facility] LABCLIA [id number] [place] [address] [place] MCV (RBC) [Entitic vol] 84.2 fL Normal 80.0-100.0 [facility] Comment on above: Order Comment: Speci men Type: BLOOD SPECIMENOrdering Facility: [facility] Address: [address] [place] [address] Performed By: #### 5 8410-2 ####[facility] LABIA [id number] [place] [address] [place] Nucleated RBC (Bld) [#/Vol] 10*3/uL Normal <0.01 [facility] Comment on above: Order Comment: Speci men Type: BLOOD SPECIMENOrdering Facility: [facility] Address: [address] [place] [address] Performed By: #### 5 8410-2 ####[facility] LABIA [id number] [place] [address] [place] Platelet mean volume (Bld) [Entitic vol] 9.5 fL Normal 9.0-12.7 [facility] Comment on above: Order Comment: Speci men Type: BLOOD SPECIMENOrdering Facility: [facility] Address: [address] [place] [address] Performed By: #### 5 8410-2 ####[facility] LABCLIA [id number] [place] [id number] [place] Platelets (Bld) [#/Vol] 389 10*3/uL Normal 150-400 [facility] Comment on above: Order Comment: Speci men Type: BLOOD SPECIMENOrdering Facility: [facility] Address: [address] [place] [address] Performed By: #### 5 8410-2 ####[facility] LABCLIA [id number] [address] [address] [place] RBC (Bld) [#/Vol] 3.79 10*6/uL Low 3.90-5.20 [facility] Comment on above: Order Comment: Speci men Type: BLOOD SPECIMENOrdering Facility: [facility] Address: [address] [place] [address] Performed By: #### 5 8410-2 ####[facility] LABCLIA [id number] [place] [address] [place] WBC (Bld) [#/Vol] 9.45 10*3/uL Normal 3.70-11.00 [facility] Comment on above: Order Comment: Speci men Type: BLOOD SPECIMENOrdering Facility: [facility] Address: [address] [place] [address] Performed By: #### 5 8410-2 ####[facility] [id number] [place] [address] [place] Comprehensive metabolic 2000 panelon 03-21-2025 Albumin [Mass/Vol] 2.6 g/dL Low 3.9-4.9 [facility] Comment on above: Order Comment: Speci men Type: BLOOD SPECIMENOrdering Facility: [facility] Address: [address] [place] [address] Performed By: #### 2 4323-8, , 7- ####[facility] LABIA [id number] [place] [address] [place] ALP [Catalytic activity/Vol] 381 U/L High 34-123 [facility] Comment on above: Order Comment: Speci men Type: BLOOD SPECIMENOrdering Facility: [facility] Address: [address] [place] [address] Performed By: #### 2 4323-8, 98223-6, 2777-1 ####[facility] LABCLIA [id number] [place] [id number] [place] ALT [Catalytic activity/Vol] 39 U/L High 7-38 [facility] Comment on above: Order Comment: Speci men Type: BLOOD SPECIMENOrdering Facility: [facility] Address: [address] [place] [address] Performed By: #### 2 4323-8, 12057-9, 2776-09 ####[facility] LABCLIA [id number] [place] [address] [place] Anion gap [Moles/Vol] 9 mmol/L Normal 8-15 [facility] Comment on above: Order Comment: Speci men Type: BLOOD SPECIMENOrdering Facility: [facility] Address: [address] [place] [address] Performed By: #### 2 4323-8, , 2776-09 ####[facility] LABCLIA [id number] [place] [address] [place] AST [Catalytic activity/Vol] 20 U/L Normal 13-35 [facility] Comment on above: Order Comment: Speci men Type: BLOOD SPECIMENOrdering Facility: [facility] Address: [address] [place] [address] Performed By: #### 2 4323-8, , 2776-09 ####[facility] LABCLIA [id number] [place] [id number] [place] Bilirubin [Mass/Vol] 0.2 mg/dL Normal 0.2-1.3 [facility] Comment on above: Order Comment: Speci men Type: BLOOD SPECIMENOrdering Facility: [facility] Address: [address] [place] [address] Performed By: #### 2 4323-8, , 2776- ####[facility] LABCLIA [id number] [place] [id number] [place] Calcium [Mass/Vol] 7.9 mg/dL Low 8.5-10.2 [facility] Comment on above: Order Comment: Speci men Type: BLOOD SPECIMENOrdering Facility: [facility] Address: [address] [place], [place] [address] Performed By: #### 2 4323-8, , 2776-09 ####[facility] LABCLIA [id number] [address] [address] [place] Chloride [Moles/Vol] 107 mmol/L Normal 98-107 [facility] Comment on above: Order Comment: Speci men Type: BLOOD SPECIMENOrdering Facility: [facility] Address: [address] [place], [place] [address] Performed By: #### 2 4323-8, , 2776-09 ####[facility] LABCLIA [id number] [place] [id number] [place] CO2 [Moles/Vol] 23 mmol/L Normal 22-30 [facility] Comment on above: Order Comment: Speci men Type: BLOOD SPECIMENOrdering Facility: [facility] Address: [address] [place] [address] Performed By: #### 2 4323-8, , 2776-09 ####[facility] LABCLIA [id number] [address] [address] [place] Creatinine [Mass/Vol] 0.45 mg/dL Low 0.58-0.96 [facility] Comment on above: Order Comment: Speci men Type: BLOOD SPECIMENOrdering Facility: [facility] Address: [address] [place] [address] Performed By: #### 2 4323-8, , 2776-09 ####[facility] LABCLIA [id number] [facility] [address] [address] [place] Creatinine and Glomerular filtration rate.predicted panel (S/P/Bld) 104 mL/min/1.73m??? Normal >=60 [facility] Comment on above: Order Comment: Sonia little Type: BLOOD SPECIMENOrdering Facility: [facility] Address: [address] [place] [address] Result Comment: Lupe mated Glomerular Filtration Rate [...] reflect actual GFR. Performed By: #### 2 4323-8, 20703-5, 2776-09 ####[facility] LABIA [id number] [place] [address] [place] Glucose [Mass/Vol] 136 mg/dL High 74-99 [facility] Comment on above: Order Comment: Sonia little Type: BLOOD SPECIMENOrdering Facility: [facility] Address: [address] [place] [address] Result Comment: The [place] [employer] (ADA) provides guidance for cutoff values for fasting glucose and random glucose. The ADA defines fasting as no caloric intake for at least 8 hours. Fasting plasma glucose results between 100 to 125 mg/dL indicate increased risk for diabetes (prediabetes).Fasting plasma glucose results greater than or equal to 126 mg/dL meet the criteria for diagnosis of diabetes. In the absence of unequivocal hyperglycemia, results should be confirmed by repeat testing. In a patient with classic symptoms of hyperglycemia or hyperglycemic crisis, random plasma glucose results greater than or equal to 200 mg/dL meet the criteria for diagnosis of diabetes.Reference: Standards of Medical Care in Diabetes 2016, [place] [employer]. Diabetes Care. 2016.39(Suppl 1). Performed By: #### 2 4323-8, 46926-8, 2776-09 ####[facility] LABIA [id number] [place] [id number] [place] Potassium [Moles/Vol] 3.7 mmol/L Normal 3.7-5.1 [facility] Comment on above: Order Comment: Speci men Type: BLOOD SPECIMENOrdering Facility: [facility] Address: [address] [place], [place] [address] Performed By: #### 2 4323-8, , 2776-09 ####[facility] LABCLIA [id number] [address] [address] [place] Protein [Mass/Vol] 5.0 g/dL Low 6.3-8.0 [facility] Comment on above: Order Comment: Speci men Type: BLOOD SPECIMENOrdering Facility: [facility] Address: [address] [place] [address] Performed By: #### 2 4323-8, , 2776-09 ####[facility] LABCLIA [id number] [place] [id number] [place] Sodium [Moles/Vol] 139 mmol/L Normal 136-144 [facility] Comment on above: Order Comment: Speci men Type: BLOOD SPECIMENOrdering Facility: [facility] Address: [address] [place], [place] [address] Performed By: #### 2 4323-8, , 2776-09 ####[facility] LABIA [id number] [place] [address] [place] Urea nitrogen [Mass/Vol] 5 mg/dL Low 7-21 [facility] Comment on above: Order Comment: Speci men Type: BLOOD SPECIMENOrdering Facility: [facility] Address: [address] [place], [place] [address] Performed By: #### 2 4323-8, , 2776-09 ####[facility] LABIA [id number] [address] [address] [place] Magnesium SerPl-mCncon 03-21 Magnesium [Mass/Vol] 2.3 mg/dL Normal 1.7-2.3 [facility] Comment on above: Order Comment: Speci men Type: BLOOD SPECIMENOrdering Facility: [facility] Address: [address] [place] [address] Performed By: #### 2 4323-8, 61040-6, 2777-1 ####[facility] LABCLIA [id number] [place] [id number] [place] Phosphate SerPl-mCncon 03-21 Phosphate [Mass/Vol] 2.7 mg/dL Normal 2.7-4.8 [facility] Comment on above: Order Comment: Speci men Type: BLOOD SPECIMENOrdering Facility: [facility] Address: [address] [place] [address] Performed By: #### 2 4323-8, 30718-4, 2777-1 ####[facility] LABIA [id number] [place] [address] [place] Amylase (Body fld) [Catalyti c activity/Vol]on 03-20-2025 Fluid Nom (Body fld) Abdomen Normal [facility] Comment on above: Order Comment: Speci men Type: FLUID SPECIMENOrdering Facility: [facility] Address: [address] [place] [address] Result Comment: steve mclain radha Performed By: #### 1 795-4 ####[facility] LABIA [id number] [address] [place] Result Comment: left radha Fluid Nom (Body fld) Abdomen Normal [facility] Comment on above: Order Comment: Speci men Type: FLUID SPECIMENOrdering Facility: [facility] Address: [address] [place] [address] Result Comment: left RADHA drain Performed By: #### 1 795-4 ####[facility] LABIA [id number] [place] [address] [place] Amylase Fld-cCncon Amylase (Body fld) [Catalytic activity/Vol] 58 U/L Normal See Comment [facility] Comment on above: Order Comment: Sonia little Type: FLUID SPECIMENOrdering Facility: [facility] Address: [address] [place] [address] Result Comment: PLEU RAL FLUIDS:Amylase measurement in pleural fluid is considered a useful test for detecting amylase-rich pleural effusions, which may be caused by exudative conditions associated with pancreatitis, esophageal rupture, malignancy, pneumonia, and liver cirrhosis. A ratio of pleural fluid amylase to a concurrent serum amylase >1 is defined asan amylase-rich pleural effusion.PERITONEAL FLUIDS AND DRAINAGE FLUIDS:Pancreatic damage causes extravasation of amylase from the exocrine cells into the peritoneal space. In cases of pancreatitis, fluid amylase should be at least several-fold times higher in fluid of pancreatic origin compared to concurrent serum amylase values.PANCREATIC CYST FLUID:Pancreatic cyst fluid amylase may aid in characterizing tumors and should be interpreted along with other clinical and laboratory information.References:1. Rachana RAMIREZ, Sanjay Manzano. Body fluid analysis: clinical utility and applicability of published studies to guide interpretation of todays laboratory testing in serous fluids. Crit Rev Clin Lab Sci, 2013;50(4-5):107-124.2. CLSI. Analysis of Body Fluids in Clinical Chemistry; Approved Guideline. CLSI document C49-A. Marko PA: Clinical Laboratory Standards [place]; 2007.3. Jerman YOOH, Fartun ROD, Adalgisa DJ. Use of cyst fluid CEA, CA19-9, and amylase for evaluation of pancreatic lesions. Clinical Biochemistry. 2009;42:0561-6945. Performed By: #### 1 795-4 ####[facility] LABCLIA [id number] [place] [address] [place] Amylase (Body fld) [Catalytic activity/Vol] 809 U/L Normal See Comment [facility] Comment on above: Order Comment: Sonia little Type: FLUID SPECIMENOrdering Facility: [facility] Address: [address] [place] [address] Result Comment: PLEU RAL FLUIDS:Amylase measurement in pleural fluid is considered a useful test for detecting amylase-rich pleural effusions, which may be caused by exudative conditions associated with pancreatitis, esophageal rupture, malignancy, pneumonia, and liver cirrhosis. A ratio of pleural fluid amylase to a concurrent serum amylase >1 is defined asan amylase-rich pleural effusion.PERITONEAL FLUIDS AND DRAINAGE FLUIDS:Pancreatic damage causes extravasation of amylase from the exocrine cells into the peritoneal space. In cases of pancreatitis, fluid amylase should be at least several-fold times higher in fluid of pancreatic origin compared to concurrent serum amylase values.PANCREATIC CYST FLUID:Pancreatic cyst fluid amylase may aid in characterizing tumors and should be interpreted along with other clinical and laboratory information.References:1. Rachana RAMIREZ, Sanjay Manzano. Body fluid analysis: clinical utility and applicability of published studies to guide interpretation of todays laboratory testing in serous fluids. Crit Rev Clin Lab Sci, 2013;50(4-5):107-124.2. CLSI. Analysis of Body Fluids in Clinical Chemistry; Approved Guideline. CLSI document C49-A. ABIGAIL Zhu: Clinical Laboratory Standards [place]; 2007.3. Jerman CHURCHILL, Fartun RC, Adalgisa DJ. Use of cyst fluid CEA, CA19-9, and amylase for evaluation of pancreatic lesions. Clinical Biochemistry. 2009;42:1855-2965. Performed By: #### 1 795-4 ####[facility] LABCLIA [id number] [place] [address] [place] Amylase (Body fld) [Catalytic activity/Vol] 3056 U/L Normal See Comment [facility] Comment on above: Order Comment: Speci men Type: FLUID SPECIMENOrdering Facility: [facility] Address: [address] [place] [address] Result Comment: PLEU RAL FLUIDS:Amylase measurement in pleural fluid is considered a useful test for detecting amylase-rich pleural effusions, which may be caused by exudative conditions associated with pancreatitis, esophageal rupture, malignancy, pneumonia, and liver cirrhosis. A ratio of pleural fluid amylase to a concurrent serum amylase >1 is defined asan amylase-rich pleural effusion.PERITONEAL FLUIDS AND DRAINAGE FLUIDS:Pancreatic damage causes extravasation of amylase from the exocrine cells into the peritoneal space. In cases of pancreatitis, fluid amylase should be at least several-fold times higher in fluid of pancreatic origin compared to concurrent serum amylase values.PANCREATIC CYST FLUID:Pancreatic cyst fluid amylase may aid in characterizing tumors and should be interpreted along with other clinical and laboratory information.References:1. Rachana RAMIREZ, Sanjay Manzano. Body fluid analysis: clinical utility and applicability of published studies to guide interpretation of todays laboratory testing in serous fluids. Crit Rev Clin Lab Sci, 2013;50(4-5):107-124.2. CLSI. Analysis of Body Fluids in Clinical Chemistry; Approved Guideline. CLSI document C49-A. ABIGAIL Zhu: Clinical Laboratory Standards [place]; 2006.3. Jerman YOOH, Fartun ROD, Adalgisa DJ. Use of cyst fluid CEA, CA19-9, and amylase for evaluation of pancreatic lesions. Clinical Biochemistry. 2009;42:2843-7524. Performed By: #### 1 795-4 ####[facility] LABCLIA [id number] [place] [address] [place] CBC panel Auto (Bld)on 03-20 Erythrocyte distribution width (RBC) [Ratio] 17.7 % High 11.5-15.0 [facility] Comment on above: Order Comment: Speci men Type: BLOOD SPECIMENOrdering Facility: [facility] Address: [address] [place] [address] Performed By: #### 5 8410-2 ####[facility] LABIA [id number] [place] [address] [place] Hematocrit (Bld) [Volume fraction] 34.1 % Low 36.0-46.0 [facility] Comment on above: Order Comment: Speci men Type: BLOOD SPECIMENOrdering Facility: [facility] Address: [address] [place] [address] Performed By: #### 5 8410-2 ####[facility] LABIA [id number] [place] [address] [place] Hemoglobin (Bld) [Mass/Vol] 10.3 g/dL Low 11.5-15.5 [facility] Comment on above: Order Comment: Speci men Type: BLOOD SPECIMENOrdering Facility: [facility] Address: [address] [place] [address] Performed By: #### 5 8410-2 ####[facility] LABIA [id number] [place] [address] [place] MCH (RBC) [Entitic mass] 25.9 pg Low 26.0-34.0 [facility] Comment on above: Order Comment: Speci men Type: BLOOD SPECIMENOrdering Facility: [facility] Address: [address] [place] [address] Performed By: #### 5 8410-2 ####[facility] LABIA [id number] [place] [address] [place] MCHC (RBC) [Mass/Vol] 30.2 g/dL Low 30.5-36.0 [facility] Comment on above: Order Comment: Speci men Type: BLOOD SPECIMENOrdering Facility: [facility] Address: [address] [place] [address] Performed By: #### 5 8410-2 ####[facility] LABIA [id number] [place] [address] [place] MCV (RBC) [Entitic vol] 85.7 fL Normal 80.0-100.0 [facility] Comment on above: Order Comment: Speci men Type: BLOOD SPECIMENOrdering Facility: [facility] Address: [address] [place] [address] Performed By: #### 5 8410-2 ####[facility] LABIA [id number] [place] [address] [place] Nucleated RBC (Bld) [#/Vol] 10*3/uL Normal <0.01 [facility] Comment on above: Order Comment: Speci men Type: BLOOD SPECIMENOrdering Facility: [facility] Address: [address] [place] [address] Performed By: #### 5 8410-2 ####[facility] LABIA [id number] [place] [address] [place] Platelet mean volume (Bld) [Entitic vol] 9.8 fL Normal 9.0-12.7 [facility] Comment on above: Order Comment: Speci men Type: BLOOD SPECIMENOrdering Facility: [facility] Address: [address] [place] [address] Performed By: #### 5 8410-2 ####[facility] LABCLIA [id number] [place] [address] [place] Platelets (Bld) [#/Vol] 404 10*3/uL High 150-400 [facility] Comment on above: Order Comment: Speci men Type: BLOOD SPECIMENOrdering Facility: [facility] Address: [address] [place] [address] Performed By: #### 5 8410-2 ####[facility] LABCLIA [id number] [place] [address] [place] RBC (Bld) [#/Vol] 3.98 10*6/uL Normal 3.90-5.20 [facility] Comment on above: Order Comment: Speci men Type: BLOOD SPECIMENOrdering Facility: [facility] Address: [address] [place] [address] Performed By: #### 5 8410-2 ####[facility] LABIA [id number] [place] [address] [place] WBC (Bld) [#/Vol] 12.46 10*3/uL High 3.70-11.00 [facility] Comment on above: Order Comment: Speci men Type: BLOOD SPECIMENOrdering Facility: [facility] Address: [address] [place] [address] Performed By: #### 5 8410-2 ####[facility] LABCLIA [id number] [place] [id number] [place] Comprehensive metabolic 2000 panelon 03-20-2025 Albumin [Mass/Vol] 2.6 g/dL Low 3.9-4.9 [facility] Comment on above: Order Comment: Speci men Type: BLOOD SPECIMENOrdering Facility: [facility] Address: [address] [place] [address] Performed By: #### 2 4323-8, , 2776-09 ####[facility] LABCLIA [id number] [place] [id number] [place] ALP [Catalytic activity/Vol] 352 U/L High 34-123 [facility] Comment on above: Order Comment: Speci men Type: BLOOD SPECIMENOrdering Facility: [facility] Address: [address] [place] [address] Performed By: #### 2 4323-8, , 2776-09 ####[facility] LABCLIA [id number] [place] [address] [place] ALT [Catalytic activity/Vol] 49 U/L High 7-38 [facility] Comment on above: Order Comment: Speci men Type: BLOOD SPECIMENOrdering Facility: [facility] Address: [address] [place] [address] Performed By: #### 2 4323-8, , 2776-09 ####[facility] LABCLIA [id number] [place] [id number] [place] Anion gap [Moles/Vol] 11 mmol/L Normal 8-15 [facility] Comment on above: Order Comment: Speci men Type: BLOOD SPECIMENOrdering Facility: [facility] Address: [address] [place] [address] Performed By: #### 2 4323-8, , 2776-09 ####[facility] LABCLIA [id number] [place] [id number] [place] AST [Catalytic activity/Vol] 25 U/L Normal 13-35 [facility] Comment on above: Order Comment: Speci men Type: BLOOD SPECIMENOrdering Facility: [facility] Address: [address] [place], [place] [address] Performed By: #### 2 4323-8, , 2776-09 ####[facility] LABCLIA [id number] [address] [address] [place] Bilirubin [Mass/Vol] 0.4 mg/dL Normal 0.2-1.3 [facility] Comment on above: Order Comment: Speci men Type: BLOOD SPECIMENOrdering Facility: [facility] Address: [address] [place], [place] [address] Performed By: #### 2 4323-8, , 2776-09 ####[facility] LABCLIA [id number] [place] [id number] [place] Calcium [Mass/Vol] 7.9 mg/dL Low 8.5-10.2 [facility] Comment on above: Order Comment: Speci men Type: BLOOD SPECIMENOrdering Facility: [facility] Address: [address] [place], [place] [address] Performed By: #### 2 4323-8, , 2776-09 ####[facility] LABCLIA [id number] [place] [id number] [place] Chloride [Moles/Vol] 105 mmol/L Normal 98-107 [facility] Comment on above: Order Comment: Speci men Type: BLOOD SPECIMENOrdering Facility: [facility] Address: [address] [place] [address] Performed By: #### 2 4323-8, , 2776-09 ####[facility] LABIA [id number] [address] [address] [place] CO2 [Moles/Vol] 22 mmol/L Normal 22-30 [facility] Comment on above: Order Comment: Speci men Type: BLOOD SPECIMENOrdering Facility: [facility] Address: [address] [place] [address] Performed By: #### 2 4323-8, 39296-2, 2776-09 ####[facility] LABIA [id number] [place] [id number] [place] Creatinine [Mass/Vol] 0.50 mg/dL Low 0.58-0.96 [facility] Comment on above: Order Comment: Speci men Type: BLOOD SPECIMENOrdering Facility: [facility] Address: [address] [place] [address] Performed By: #### 2 4323-8, , 2776-09 ####[facility] [id number] [place] [address] [place] Creatinine and Glomerular filtration rate.predicted panel (S/P/Bld) 101 mL/min/1.73m??? Normal >=60 [facility] Comment on above: Order Comment: Sonia little Type: BLOOD SPECIMENOrdering Facility: [facility] Address: [address] [place] [address] Result Comment: Lupe mated Glomerular Filtration Rate [...] reflect actual GFR. Performed By: #### 2 4323-8, , 2776-09 ####[facility] LABIA [id number] [address] [address] [place] Glucose [Mass/Vol] 117 mg/dL High 74-99 [facility] Comment on above: Order Comment: Armandoi men Type: BLOOD SPECIMENOrdering Facility: [facility] Address: [address] [place] [address] Result Comment: The [place] [employer] (ADA) provides guidance for cutoff values for fasting glucose and random glucose. The ADA defines fasting as no caloric intake for at least 8 hours. Fasting plasma glucose results between 100 to 125 mg/dL indicate increased risk for diabetes (prediabetes).Fasting plasma glucose results greater than or equal to 126 mg/dL meet the criteria for diagnosis of diabetes. In the absence of unequivocal hyperglycemia, results should be confirmed by repeat testing. In a patient with classic symptoms of hyperglycemia or hyperglycemic crisis, random plasma glucose results greater than or equal to 200 mg/dL meet the criteria for diagnosis of diabetes.Reference: Standards of Medical Care in Diabetes 2016, [place] [employer]. Diabetes Care. 2016.39(Suppl 1). Performed By: #### 2 4323-8, , 2776-09 ####[facility] LABIA [id number] [place] [address] [place] Potassium [Moles/Vol] 3.5 mmol/L Low 3.7-5.1 [facility] Comment on above: Order Comment: Speci men Type: BLOOD SPECIMENOrdering Facility: [facility] Address: [address] [place] [address] Performed By: #### 2 432-8, , 2776-09 ####[facility] LABIA [id number] [place] [address] [place] Protein [Mass/Vol] 4.9 g/dL Low 6.3-8.0 [facility] Comment on above: Order Comment: Speci men Type: BLOOD SPECIMENOrdering Facility: [facility] Address: [address] [place] [address] Performed By: #### 2 432-8, , 2776-09 ####[facility] LABIA [id number] [place] [id number] [place] Sodium [Moles/Vol] 138 mmol/L Normal 136-144 [facility] Comment on above: Order Comment: Speci men Type: BLOOD SPECIMENOrdering Facility: [facility] Address: [address] [place] [address] Performed By: #### 2 432-8, , 2776-09 ####[facility] LABCLIA [id number] [address] [address] [place] Urea nitrogen [Mass/Vol] 6 mg/dL Low 7-21 [facility] Comment on above: Order Comment: Speci men Type: BLOOD SPECIMENOrdering Facility: [facility] Address: [address] [place] [address] Performed By: #### 2 4323-8, 14851-5, 2776- ####[facility] LABCLIA [id number] [address] [address] [place] Magnesium SerPl-ncon 03-20 Magnesium [Mass/Vol] 2.1 mg/dL Normal 1.7-2.3 [facility] Comment on above: Order Comment: Speci men Type: BLOOD SPECIMENOrdering Facility: [facility] Address: [address] [place] [address] Performed By: #### 2 4323-8, , 2776-09 ####[facility] LABIA [id number] [place] [id number] [place] NURSING PROGon 03-20-2025 NURSING PROG Normal [facility] Phosphate SerPl-mCncon 03-20 Phosphate [Mass/Vol] 2.3 mg/dL Low 2.7-4.8 [facility] Comment on above: Order Comment: Speci men Type: BLOOD SPECIMENOrdering Facility: [facility] Address: [address] [place], [place] [address] Performed By: #### 2 4323-8, 21084-4, 27703-23 ####[facility] LABIA [id number] [place] [id number] [place] Amylase (Body fld) [Catalyti c activity/Vol]on 03-19-2025 Fluid Nom (Body fld) Abdomen Normal [facility] Comment on above: Order Comment: Speci men Type: FLUID SPECIMENOrdering Facility: [facility] Address: [address] [place] [address] Result Comment: righ t side drain Performed By: #### 1 795-4 ####[facility] LABCLIA [id number] [address] Fluid Nom (Body fld) Abdomen Normal [facility] Comment on above: Order Comment: Speci men Type: FLUID SPECIMENOrdering Facility: [facility] Address: [address] [place] [address] Result Comment: Righ t Performed By: #### 1 795-4 ####[facility] LABCLIA [id number] [address] Result Comment: [facility] Amylase (Body fld) [Catalytic activity/Vol] 253 U/L Normal See Comment [facility] Comment on above: Order Comment: Speci men Type: FLUID SPECIMENOrdering Facility: [facility] Address: [address] [place] [address] Result Comment: PLEU RAL FLUIDS:Amylase measurement in pleural fluid is considered a useful test for detecting amylase-rich pleural effusions, which may be caused by exudative conditions associated with pancreatitis, esophageal rupture, malignancy, pneumonia, and liver cirrhosis. A ratio of pleural fluid amylase to a concurrent serum amylase >1 is defined asan amylase-rich pleural effusion.PERITONEAL FLUIDS AND DRAINAGE FLUIDS:Pancreatic damage causes extravasation of amylase from the exocrine cells into the peritoneal space. In cases of pancreatitis, fluid amylase should be at least several-fold times higher in fluid of pancreatic origin compared to concurrent serum amylase values.PANCREATIC CYST FLUID:Pancreatic cyst fluid amylase may aid in characterizing tumors and should be interpreted along with other clinical and laboratory information.References:1. Rachana RAMIREZ, Sanjay Manzano. Body fluid analysis: clinical utility and applicability of published studies to guide interpretation of todays laboratory testing in serous fluids. Crit Rev Clin Lab Sci, 2013;50(4-5):107-124.2. CLSI. Analysis of Body Fluids in Clinical Chemistry; Approved Guideline. CLSI document C49-A. ABIGAIL Zhu: Clinical Laboratory Standards [place]; 2007.3. Fartnu Mata OKane DJ. Use of cyst fluid CEA, CA19-9, and amylase for evaluation of pancreatic lesions. Clinical Biochemistry. 2009;42:6120-1727. Performed By: #### 1 795-4 ####[facility] LABCLIA [id number] [place] [address] [place] Amylase (Body fld) [Catalytic activity/Vol] 397 U/L Normal See Comment [facility] Comment on above: Order Comment: Speci men Type: FLUID SPECIMENOrdering Facility: [facility] Address: [address] [place] [address] Result Comment: PLEU RAL FLUIDS:Amylase measurement in pleural fluid is considered a useful test for detecting amylase-rich pleural effusions, which may be caused by exudative conditions associated with pancreatitis, esophageal rupture, malignancy, pneumonia, and liver cirrhosis. A ratio of pleural fluid amylase to a concurrent serum amylase >1 is defined asan amylase-rich pleural effusion.PERITONEAL FLUIDS AND DRAINAGE FLUIDS:Pancreatic damage causes extravasation of amylase from the exocrine cells into the peritoneal space. In cases of pancreatitis, fluid amylase should be at least several-fold times higher in fluid of pancreatic origin compared to concurrent serum amylase values.PANCREATIC CYST FLUID:Pancreatic cyst fluid amylase may aid in characterizing tumors and should be interpreted along with other clinical and laboratory information.References:1. Rachana RAMIREZ, Sanjay Manzano. Body fluid analysis: clinical utility and applicability of published studies to guide interpretation of todays laboratory testing in serous fluids. Crit Rev Clin Lab Sci, 2013;50(4-5):107-124.2. CLSI. Analysis of Body Fluids in Clinical Chemistry; Approved Guideline. CLSI document C49-A. ABIGAIL Zhu: Clinical Laboratory Standards [place]; 2007.3. Fartun Mata OKane DJ. Use of cyst fluid CEA, CA19-9, and amylase for evaluation of pancreatic lesions. Clinical Biochemistry. 2009;42:0510-2622. Performed By: #### 1 795-4 ####[facility] LABCLIA [id number] [place] [address] [place] Amylase (Body fld) [Catalytic activity/Vol] 1638 U/L Normal See Comment [facility] Comment on above: Order Comment: Speci men Type: FLUID SPECIMENOrdering Facility: [facility] Address: [address] [place] [address] Result Comment: PLEU RAL FLUIDS:Amylase measurement in pleural fluid is considered a useful test for detecting amylase-rich pleural effusions, which may be caused by exudative conditions associated with pancreatitis, esophageal rupture, malignancy, pneumonia, and liver cirrhosis. A ratio of pleural fluid amylase to a concurrent serum amylase >1 is defined asan amylase-rich pleural effusion.PERITONEAL FLUIDS AND DRAINAGE FLUIDS:Pancreatic damage causes extravasation of amylase from the exocrine cells into the peritoneal space. In cases of pancreatitis, fluid amylase should be at least several-fold times higher in fluid of pancreatic origin compared to concurrent serum amylase values.PANCREATIC CYST FLUID:Pancreatic cyst fluid amylase may aid in characterizing tumors and should be interpreted along with other clinical and laboratory information.References:1. Rachana RAMIREZ, Sanjay Manzano. Body fluid analysis: clinical utility and applicability of published studies to guide interpretation of todays laboratory testing in serous fluids. Crit Rev Clin Lab Sci, 2013;50(4-5):107-124.2. CLSI. Analysis of Body Fluids in Clinical Chemistry; Approved Guideline. CLSI document C49-A. ABIGAIL Zhu: Clinical Laboratory Standards [place]; 2007.3. Jerman YOOH, Fartun RC, Adalgisa DJ. Use of cyst fluid CEA, CA19-9, and amylase for evaluation of pancreatic lesions. Clinical Biochemistry. 2009;42:3898-7079. Performed By: #### 1 795-4 ####[facility] LABCLIA [id number] [place] [address] [place] CBC panel Auto (Bld)on 03-19 Erythrocyte distribution width (RBC) [Ratio] 16.9 % High 11.5-15.0 [facility] Comment on above: Order Comment: Speci men Type: BLOOD SPECIMENOrdering Facility: [facility] Address: [address] [place] [address] Performed By: #### 5 8410-2 ####[facility] LABIA [id number] [place] [address] [place] Hematocrit (Bld) [Volume fraction] 29.0 % Low 36.0-46.0 [facility] Comment on above: Order Comment: Speci men Type: BLOOD SPECIMENOrdering Facility: [facility] Address: [address] [place] [address] Performed By: #### 5 8410-2 ####[facility] LABIA [id number] [place] [address] [place] Hemoglobin (Bld) [Mass/Vol] 9.0 g/dL Low 11.5-15.5 [facility] Comment on above: Order Comment: Speci men Type: BLOOD SPECIMENOrdering Facility: [facility] Address: [address] [place] [address] Performed By: #### 5 8410-2 ####[facility] LABIA [id number] [place] [address] [place] MCH (RBC) [Entitic mass] 25.7 pg Low 26.0-34.0 [facility] Comment on above: Order Comment: Speci men Type: BLOOD SPECIMENOrdering Facility: [facility] Address: [address] [place] [address] Performed By: #### 5 8410-2 ####[facility] LABIA [id number] [place] [address] [place] MCHC (RBC) [Mass/Vol] 31.0 g/dL Normal 30.5-36.0 [facility] Comment on above: Order Comment: Speci men Type: BLOOD SPECIMENOrdering Facility: [facility] Address: [address] [place] [address] Performed By: #### 5 8410-2 ####[facility] LABIA [id number] [place] [id number] [place] MCV (RBC) [Entitic vol] 82.9 fL Normal 80.0-100.0 [facility] Comment on above: Order Comment: Speci men Type: BLOOD SPECIMENOrdering Facility: [facility] Address: [address] [place] [address] Performed By: #### 5 8410-2 ####[facility] LABCLIA [id number] [place] [address] [place] Nucleated RBC (Bld) [#/Vol] 10*3/uL Normal <0.01 [facility] Comment on above: Order Comment: Speci men Type: BLOOD SPECIMENOrdering Facility: [facility] Address: [address] [place] [address] Performed By: #### 5 8410-2 ####[facility] LABIA [id number] [place] [address] [place] [place] Platelet mean volume (Bld) [Entitic vol] 9.7 fL Normal 9.0-12.7 [facility] Comment on above: Order Comment: Speci men Type: BLOOD SPECIMENOrdering Facility: [facility] Address: [address] [place] [address] Performed By: #### 5 8410-2 ####[facility] LABIA [id number] [place] [address] [place] Platelets (Bld) [#/Vol] 357 10*3/uL Normal 150-400 [facility] Comment on above: Order Comment: Speci men Type: BLOOD SPECIMENOrdering Facility: [facility] Address: [address] [place] [address] Performed By: #### 5 8410-2 ####[facility] LABCLIA [id number] [place] [address] [place] RBC (Bld) [#/Vol] 3.50 10*6/uL Low 3.90-5.20 [facility] Comment on above: Order Comment: Speci men Type: BLOOD SPECIMENOrdering Facility: [facility] Address: [address] [place], [place] [address] Performed By: #### 5 8410-2 ####[facility] LABCLIA [id number] [address] [address] [place] WBC (Bld) [#/Vol] 15.28 10*3/uL High 3.70-11.00 [facility] Comment on above: Order Comment: Speci men Type: BLOOD SPECIMENOrdering Facility: [facility] Address: [address] [place] [address] Performed By: #### 5 8410-2 ####[facility] LABCLIA [id number] [address] [address] [place] Comprehensive metabolic 2000 panelon 03-19-2025 Albumin [Mass/Vol] 2.4 g/dL Low 3.9-4.9 [facility] Comment on above: Order Comment: Speci men Type: BLOOD SPECIMENOrdering Facility: [facility] Address: [address] [place], [place] [address] Performed By: #### 2 4323-8, 60826-5, 2777-1 ####[facility] LABCLIA [id number] [place] [address] [place] ALP [Catalytic activity/Vol] 343 U/L High 34-123 [facility] Comment on above: Order Comment: Speci men Type: BLOOD SPECIMENOrdering Facility: [facility] Address: [address] [place], [place] [address] Performed By: #### 2 4323-8, 26006-5, 2777-1 ####[facility] LABCLIA [id number] [address] [address] [place] ALT [Catalytic activity/Vol] 68 U/L High 7-38 [facility] Comment on above: Order Comment: Speci men Type: BLOOD SPECIMENOrdering Facility: [facility] Address: [address] [place] [address] Performed By: #### 2 4323-8, 72186-8, 2776-09 ####[facility] LABCLIA [id number] [place] [address] [place] Anion gap [Moles/Vol] 13 mmol/L Normal 8-15 [facility] Comment on above: Order Comment: Speci men Type: BLOOD SPECIMENOrdering Facility: [facility] Address: [address] [place] [address] Performed By: #### 2 4323-8, , 2776-09 ####[facility] LABIA [id number] [place] [address] [place] AST [Catalytic activity/Vol] 42 U/L High 13-35 [facility] Comment on above: Order Comment: Speci men Type: BLOOD SPECIMENOrdering Facility: [facility] Address: [address] [place], [place] [address] Performed By: #### 2 4323-8, , 2776-09 ####[facility] LABIA [id number] [place] [address] [place] Bilirubin [Mass/Vol] 0.5 mg/dL Normal 0.2-1.3 [facility] Comment on above: Order Comment: Speci men Type: BLOOD SPECIMENOrdering Facility: [facility] Address: [address] [place], [place] [address] Performed By: #### 2 4323-8, , 2776-09 ####[facility] LABIA [id number] [place] [address] [place] Calcium [Mass/Vol] 8.0 mg/dL Low 8.5-10.2 [facility] Comment on above: Order Comment: Speci men Type: BLOOD SPECIMENOrdering Facility: [facility] Address: [address] [place], [place] [address] Performed By: #### 2 4323-8, , 2776-09 ####[facility] LABCLIA [id number] [address] [address] [place] Chloride [Moles/Vol] 102 mmol/L Normal 98-107 [facility] Comment on above: Order Comment: Speci men Type: BLOOD SPECIMENOrdering Facility: [facility] Address: [address] [place] [address] Performed By: #### 2 4323-8, , 2776-09 ####[facility] LABIA [id number] [place] [address] [place] CO2 [Moles/Vol] 21 mmol/L Low 22-30 [facility] Comment on above: Order Comment: Speci men Type: BLOOD SPECIMENOrdering Facility: [facility] Address: [address] [place] [address] Performed By: #### 2 4323-8, , 2776-09 ####[facility] LABIA [id number] [place] [address] [place] Creatinine [Mass/Vol] 0.44 mg/dL Low 0.58-0.96 [facility] Comment on above: Order Comment: Speci men Type: BLOOD SPECIMENOrdering Facility: [facility] Address: [address] [place] [address] Performed By: #### 2 4323-8, , 2776-09 ####[facility] LABIA [id number] [address] [address] [place] Creatinine and Glomerular filtration rate.predicted panel (S/P/Bld) 104 mL/min/1.73m??? Normal >=60 [facility] Comment on above: Order Comment: Speci men Type: BLOOD SPECIMENOrdering Facility: [facility] Address: [address] [place] [address] Result Comment: Lupe mated Glomerular Filtration Rate [...] reflect actual GFR. Performed By: #### 2 4323-8, , 2776-09 ####[facility] LABCLIA [id number] [address] [address] [place] Glucose [Mass/Vol] 118 mg/dL High 74-99 [facility] Comment on above: Order Comment: Speci men Type: BLOOD SPECIMENOrdering Facility: [facility] Address: [address] [place] [address] Result Comment: The [place] [employer] (ADA) provides guidance for cutoff values for fasting glucose and random glucose. The ADA defines fasting as no caloric intake for at least 8 hours. Fasting plasma glucose results between 100 to 125 mg/dL indicate increased risk for diabetes (prediabetes).Fasting plasma glucose results greater than or equal to 126 mg/dL meet the criteria for diagnosis of diabetes. In the absence of unequivocal hyperglycemia, results should be confirmed by repeat testing. In a patient with classic symptoms of hyperglycemia or hyperglycemic crisis, random plasma glucose results greater than or equal to 200 mg/dL meet the criteria for diagnosis of diabetes.Reference: Standards of Medical Care in Diabetes 2016, [place] [employer]. Diabetes Care. 2016.39(Suppl 1). Performed By: #### 2 4323-8, , 2776-09 ####[facility] LABIA [id number] [address] [address] [place] Potassium [Moles/Vol] 3.3 mmol/L Low 3.7-5.1 [facility] Comment on above: Order Comment: Sonia little Type: BLOOD SPECIMENOrdering Facility: [facility] Address: [address] [place] [address] Performed By: #### 2 4323-8, , 2776-09 ####[facility] LABCLIA [id number] [address] [address] [place] Protein [Mass/Vol] 4.8 g/dL Low 6.3-8.0 [facility] Comment on above: Order Comment: Speci men Type: BLOOD SPECIMENOrdering Facility: [facility] Address: [address] [place] [address] Performed By: #### 2 4323-8, 18228-3, 277-1 ####[facility] LABCLIA [id number] [place] [address] [place] Sodium [Moles/Vol] 136 mmol/L Normal 136-144 [facility] Comment on above: Order Comment: Speci men Type: BLOOD SPECIMENOrdering Facility: [facility] Address: [address] [place] [address] Performed By: #### 2 4323-8, , 277- ####[facility] LABCLIA [id number] [place] [address] [place] Urea nitrogen [Mass/Vol] 5 mg/dL Low 7-21 [facility] Comment on above: Order Comment: Speci men Type: BLOOD SPECIMENOrdering Facility: [facility] Address: [address] [place] [address] Performed By: #### 2 4323-8, 34229-6, 2776- ####[facility] LABCLIA [id number] [place] [address] [place] Magnesium SerPl-mCncon 03-19 Magnesium [Mass/Vol] 1.8 mg/dL Normal 1.7-2.3 [facility] Comment on above: Order Comment: Speci men Type: BLOOD SPECIMENOrdering Facility: [facility] Address: [address] [place] [address] Performed By: #### 2 4323-8, 59815-2, 2777-1 ####[facility] LABCLIA [id number] [place] [address] [place] NUTRITIONon 03-19-2025 NUTRITION Normal [facility] Phosphate SerPl-mCncon 03-19 Phosphate [Mass/Vol] 2.1 mg/dL Low 2.7-4.8 [facility] Comment on above: Order Comment: Speci men Type: BLOOD SPECIMENOrdering Facility: [facility] Address: [address] [place] [address] Performed By: #### 2 4323-8, 58783-7, 2777-1 ####[facility] LABCLIA [id number] [place] [address] [place] Amylase (Body fld) [Catalyti c activity/Vol]on 03-18-2025 Fluid Nom (Body fld) Abdomen Normal [facility] Comment on above: Order Comment: Speci men Type: FLUID SPECIMENOrdering Facility: [facility] Address: [address] [place] [address] Result Comment: Steve mclain RADHA Drain Performed By: #### 1 795-4 ####[facility] LABCLIA [id number] [place] [address] [place] Amylase Fld-cCncon Amylase (Body fld) [Catalytic activity/Vol] 622 U/L Normal See Comment [facility] Comment on above: Order Comment: Speci men Type: FLUID SPECIMENOrdering Facility: [facility] Address: [address] [place] [address] Result Comment: PLEU RAL FLUIDS:Amylase measurement in pleural fluid is considered a useful test for detecting amylase-rich pleural effusions, which may be caused by exudative conditions associated with pancreatitis, esophageal rupture, malignancy, pneumonia, and liver cirrhosis. A ratio of pleural fluid amylase to a concurrent serum amylase >1 is defined asan amylase-rich pleural effusion.PERITONEAL FLUIDS AND DRAINAGE FLUIDS:Pancreatic damage causes extravasation of amylase from the exocrine cells into the peritoneal space. In cases of pancreatitis, fluid amylase should be at least several-fold times higher in fluid of pancreatic origin compared to concurrent serum amylase values.PANCREATIC CYST FLUID:Pancreatic cyst fluid amylase may aid in characterizing tumors and should be interpreted along with other clinical and laboratory information.References:1. Rachana RAMIREZ, Sanjay Manzano. Body fluid analysis: clinical utility and applicability of published studies to guide interpretation of todays laboratory testing in serous fluids. Crit Rev Clin Lab Sci, 2013;50(4-5):107-124.2. CLSI. Analysis of Body Fluids in Clinical Chemistry; Approved Guideline. CLSI document C49-A. ABIGAIL Zhu: Clinical Laboratory Standards [place]; 2007.3. Jerman CHURCHILL, Fartun ROD, Adalgisa DJ. Use of cyst fluid CEA, CA19-9, and amylase for evaluation of pancreatic lesions. Clinical Biochemistry. 2009;42:2738-0764. Performed By: #### 1 795-4 ####[facility] LABCLIA [id number] [place] [address] [place] OUTSIDE SURG PATH SLIDE REVI EWon 03-18-2025 AP DISCLAIMER Normal [facility] Comment on above: Order Comment: Speci men Type: FORMALIN-FIXED PARAFFIN-EMBEDDED TISSUE SPECIMENOrdering Facility: AP Outside Review Address: , , Result Comment: Sav Medley Test (LDT) Disclaimer:Performance characteristics of immunohistochemical, immunofluorescent, and chromogenic in-situ hybridization tests have been determined by the performing laboratory within [facility]ology and Laboratory Medicine Department ([facility], [facility], [facility], [facility], [facility], [facility], or [facility]) in a manner consistent with CLIA requirements. One or more of these tests may not have been cleared or approved by the FDA. [facility] is regulated under CLIA as qualified to perform high-complexity testing. These tests are used for clinical purposes. These should not be regarded as investigational or for research. Positive and negative controls stain appropriately. Performed By: #### L [id number] ####[facility] LABCLIA [id number] [place] [id number] [place] CASE REPORT Normal [facility] Comment on above: Order Comment: Speci men Type: FORMALIN-FIXED PARAFFIN-EMBEDDED TISSUE SPECIMENOrdering Facility: AP Outside Review Address: , , Result Comment: [facility] Pathology Report Case: [id number] Provider: Earl Cardenas MD Collected: 03/18/2025 03:17 PMOrdering Location: [facility] Received: 03/18/2025 03:15 PM [facility] LaboratoryPathologist: Maddison Barrios MD, PhDSpecimen: Slide(s), 1 SLIDE [id number] Performed By: #### L [id number] ####[facility] LABCLIA [id number] [id number] [place] [address] FINAL DIAGNOSIS Normal [facility] Comment on above: Order Comment: Speci men Type: FORMALIN-FIXED PARAFFIN-EMBEDDED TISSUE SPECIMENOrdering Facility: AP Outside Review Address: , , Result Comment: Joce wilkes ([facility]), [place], [place] ([id number], 03/01/2025)Duodenum, second portion, mass, biopsy (1):- Adenocarcinoma. at 1758 EDT Performed By: #### L [id number] ####[facility] LABCLIA [id number] [address] FINAL PERFORMING LAB Normal [facility] Comment on above: Order Comment: Speci men Type: FORMALIN-FIXED PARAFFIN-EMBEDDED TISSUE SPECIMENOrdering Facility: AP Outside Review Address: , , Result Comment: Diag nostic interpretation performed at: [facility], [address] [place] [address] CLIA# [id number] Director: Anish Blackwell MD Performed By: #### L [id number] ####[facility] LABCLIA [id number] [address] [address] [facility] [place] REFERRAL FOR ADDITIONAL BIOM ARKER AND MOLECULAR TESTINGon 03-18-2025 REFERRAL FOR ADDITIONAL BIOMARKER AND MOLECULAR TESTING Normal [facility] Comment on above: Order Comment: Speci men Type: TISSUE SPECIMENOrdering Facility: [facility] Address: [address] [place] [address] Result Comment: Requ est has been received for evaluation and the results will be issued separately. Performed By: #### A PMOL ####[facility] LABCLIA [id number] [place] [address] [place] ANES POSTPROC EVALon 025 ANES POSTPROC EVAL Normal [facility] ANES PRE-OPon 03-17-2025 ANES PRE-OP Normal [facility] ARTERIAL BLOOD GASES WITH IO NIZED MAGNESIUMon 03-17-2025 Base deficit (BldA) [Moles/Vol] -2 mmol/L Normal -2-0 [facility] Comment on above: Order Comment: Speci men Type: ARTERIAL BLOOD SPECIMENOrdering Facility: [facility] Address: [address] [place] [address] Performed By: #### A LLMG ####[facility] LABIA [id number] [place] [address] [place] Calcium.ionized (Bld) [Mass/Vol] 1.14 mmol/L Normal 1.08-1.30 [facility] Comment on above: Order Comment: Speci men Type: ARTERIAL BLOOD SPECIMENOrdering Facility: [facility] Address: [address] [place] [address] Performed By: #### A LLMG ####[facility] LABIA [id number] [place] [address] [place] Calcium.ionized adjusted to pH 7.4 (BldA) [Moles/Vol] 1.16 mmol/L Normal 1.08-1.30 [facility] Comment on above: Order Comment: Speci men Type: ARTERIAL BLOOD SPECIMENOrdering Facility: [facility] Address: [address] [place] [address] Performed By: #### A LLMG ####[facility] LABIA [id number] [place] [address] [place] Carboxyhemoglobin (BldA) [Mass fraction] 2.3 % High 0.0-2.0 [facility] Comment on above: Order Comment: Speci men Type: ARTERIAL BLOOD SPECIMENOrdering Facility: [facility] Address: [address] [place] [address] Result Comment: Carb oxyhemoglobin Reference Range for Smokers: 2.0-8.0% Performed By: #### A LLMG ####[facility] LABCLIA [id number] [place] [address] [place] CO2 (Bld) [Partial pressure] 34 mm Hg Low 36-46 [facility] Comment on above: Order Comment: Speci men Type: ARTERIAL BLOOD SPECIMENOrdering Facility: [facility] Address: [address] [place] [address] Performed By: #### A LLMG ####[facility] LABCLIA [id number] [address] [place] CO2 adjusted to patient's actual temperature (Bld) [Partial pressure] 34 mmHg Low 36-46 [facility] Comment on above: Order Comment: Speci men Type: ARTERIAL BLOOD SPECIMENOrdering Facility: [facility] Address: [address] [place] [address] Performed By: #### A LLMG ####[facility] LABCLIA [id number] [place] [address] [place] Glucose [Mass/Vol] 183 mg/dL High 60-105 [facility] Comment on above: Order Comment: Speci men Type: ARTERIAL BLOOD SPECIMENOrdering Facility: [facility] Address: [address] [place] [address] Performed By: #### A LLMG ####[facility] LABCLIA [id number] [place] [id number] [place] HCO3 (Bld) [Moles/Vol] 22 mmol/L Normal 22-26 [facility] Comment on above: Order Comment: Speci men Type: ARTERIAL BLOOD SPECIMENOrdering Facility: [facility] Address: [address] [place] [address] Performed By: #### A LLMG ####[facility] LABIA [id number] [place] [address] [place] Hematocrit (Bld) [Volume fraction] 25.9 % Low 36.0-46.0 [facility] Comment on above: Order Comment: Speci men Type: ARTERIAL BLOOD SPECIMENOrdering Facility: [facility] Address: [address] [place] [address] Performed By: #### A LLMG ####[facility] LABIA [id number] [place] [address] [place] Hemoglobin (Bld) [Mass/Vol] 8.3 g/dL Low 11.5-15.5 [facility] Comment on above: Order Comment: Speci men Type: ARTERIAL BLOOD SPECIMENOrdering Facility: [facility] Address: [address] [place] [address] Performed By: #### A LLMG ####[facility] LABIA [id number] [place] [address] [place] Lactate [Moles/Vol] 1.1 mmol/L Normal 0.5-2.2 [facility] Comment on above: Order Comment: Speci men Type: ARTERIAL BLOOD SPECIMENOrdering Facility: [facility] Address: [address] [place] [address] Performed By: #### A LLMG ####[facility] LABIA [id number] [place] [address] [place] Magnesium [Moles/Vol] 0.82 mmol/L High 0.45-0.60 [facility] Comment on above: Order Comment: Speci men Type: ARTERIAL BLOOD SPECIMENOrdering Facility: [facility] Address: [address] [place] [address] Performed By: #### A LLMG ####[facility] LABCLIA [id number] [address] [address] [place] Methemoglobin (Bld) [Mass fraction] 1.4 % Normal 0.0-1.5 [facility] Comment on above: Order Comment: Speci men Type: ARTERIAL BLOOD SPECIMENOrdering Facility: [facility] Address: [address] [place] [address] Performed By: #### A LLMG ####[facility] LABCLIA [id number] [address] [address] [place] Oxygen (Bld) [Partial pressure] 196 mm Hg High 85-95 [facility] Comment on above: Order Comment: Speci men Type: ARTERIAL BLOOD SPECIMENOrdering Facility: [facility] Address: [address] [place] [address] Performed By: #### A LLMG ####[facility] LABCLIA [id number] [place] [id number] [place] Oxygen adjusted to patient's actual temperature (Bld) [Partial pressure] 196 mmHg High 85-95 [facility] Comment on above: Order Comment: Speci men Type: ARTERIAL BLOOD SPECIMENOrdering Facility: [facility] Address: [address] [place] [address] Performed By: #### A LLMG ####[facility] LABCLIA [id number] [place] [id number] [place] Oxyhemoglobin (BldA) [Mass fraction] 96 % Normal 95-98 [facility] Comment on above: Order Comment: Speci men Type: ARTERIAL BLOOD SPECIMENOrdering Facility: [facility] Address: [address] [place] [address] Performed By: #### A LLMG ####[facility] LABCLIA [id number] [address] [address] [place] pH (Bld) 7.42 [pH] Normal 7.35-7.45 [facility] Comment on above: Order Comment: Speci men Type: ARTERIAL BLOOD SPECIMENOrdering Facility: [facility] Address: [address] [place] [address] Performed By: #### A LLMG ####[facility] LABCLIA [id number] [address] [address] [place] pH adjusted to patient's actual temperature (Bld) 7.42 Normal 7.35-7.45 [facility] Comment on above: Order Comment: Speci men Type: ARTERIAL BLOOD SPECIMENOrdering Facility: [facility] Address: [address] [place] [address] Performed By: #### A LLMG ####[facility] LABCLIA [id number] [place] [id number] [place] Potassium [Moles/Vol] 3.6 mmol/L Normal 3.5-5.0 [facility] Comment on above: Order Comment: Speci men Type: ARTERIAL BLOOD SPECIMENOrdering Facility: [facility] Address: [address] [place], [place] [address] Performed By: #### A LLMG ####[facility] LABCLIA [id number] [place] [id number] [place] Sodium [Moles/Vol] 140 mmol/L Normal 136-144 [facility] Comment on above: Order Comment: Speci men Type: ARTERIAL BLOOD SPECIMENOrdering Facility: [facility] Address: [address] [place], [place] [address] Performed By: #### A LLMG ####[facility] LABCLIA [id number] [address] [address] [place] Base deficit (BldA) [Moles/Vol] -2 mmol/L Normal -2-0 [facility] Comment on above: Order Comment: Speci men Type: ARTERIAL BLOOD SPECIMENOrdering Facility: [facility] Address: [address] [place], [place] [address] Performed By: #### A LLMG ####[facility] LABCLIA [id number] [place] [address] [place] Calcium.ionized (Bld) [Mass/Vol] 1.05 mmol/L Low 1.08-1.30 [facility] Comment on above: Order Comment: Speci men Type: ARTERIAL BLOOD SPECIMENOrdering Facility: [facility] Address: [address] [place] [address] Performed By: #### A LLMG ####[facility] LABIA [id number] [place] [address] [place] Calcium.ionized adjusted to pH 7.4 (BldA) [Moles/Vol] 1.06 mmol/L Low 1.08-1.30 [facility] Comment on above: Order Comment: Speci men Type: ARTERIAL BLOOD SPECIMENOrdering Facility: [facility] Address: [address] [place] [address] Performed By: #### A LLMG ####[facility] [id number] [place] [address] [place] Carboxyhemoglobin (BldA) [Mass fraction] 2.1 % High 0.0-2.0 [facility] Comment on above: Order Comment: Speci men Type: ARTERIAL BLOOD SPECIMENOrdering Facility: [facility] Address: [address] [place] [address] Result Comment: Carb oxyhemoglobin Reference Range for Smokers: 2.0-8.0% Performed By: #### A LLMG ####[facility] LABIA [id number] [place] [address] [place] CO2 (Bld) [Partial pressure] 34 mm Hg Low 36-46 [facility] Comment on above: Order Comment: Speci men Type: ARTERIAL BLOOD SPECIMENOrdering Facility: [facility] Address: [address] [place] [address] Performed By: #### A LLMG ####[facility] LABIA [id number] [place] [address] [place] CO2 adjusted to patient's actual temperature (Bld) [Partial pressure] 34 mmHg Low 36-46 [facility] Comment on above: Order Comment: Speci men Type: ARTERIAL BLOOD SPECIMENOrdering Facility: [facility] Address: [address] [place] [address] Performed By: #### A LLMG ####[facility] LABCLIA [id number] [place] [address] [place] Glucose [Mass/Vol] 187 mg/dL High 60-105 [facility] Comment on above: Order Comment: Speci men Type: ARTERIAL BLOOD SPECIMENOrdering Facility: [facility] Address: [address] [place] [address] Performed By: #### A LLMG ####[facility] LABCLIA [id number] [place] [address] [place] HCO3 (Bld) [Moles/Vol] 22 mmol/L Normal 22-26 [facility] Comment on above: Order Comment: Speci men Type: ARTERIAL BLOOD SPECIMENOrdering Facility: [facility] Address: [address] [place] [address] Performed By: #### A LLMG ####[facility] LABCLIA [id number] [place] [id number] [place] Hematocrit (Bld) [Volume fraction] 26.1 % Low 36.0-46.0 [facility] Comment on above: Order Comment: Speci men Type: ARTERIAL BLOOD SPECIMENOrdering Facility: [facility] Address: [address] [place] [address] Performed By: #### A LLMG ####[facility] LABCLIA [id number] [place] [id number] [place] Hemoglobin (Bld) [Mass/Vol] 8.4 g/dL Low 11.5-15.5 [facility] Comment on above: Order Comment: Speci men Type: ARTERIAL BLOOD SPECIMENOrdering Facility: [facility] Address: [address] [place] [address] Performed By: #### A LLMG ####[facility] LABIA [id number] [place] [address] [place] Lactate [Moles/Vol] 1.2 mmol/L Normal 0.5-2.2 [facility] Comment on above: Order Comment: Speci men Type: ARTERIAL BLOOD SPECIMENOrdering Facility: [facility] Address: [address] [place] [address] Performed By: #### A LLMG ####[facility] LABIA [id number] [place] [address] [place] Magnesium [Moles/Vol] 0.85 mmol/L High 0.45-0.60 [facility] Comment on above: Order Comment: Speci men Type: ARTERIAL BLOOD SPECIMENOrdering Facility: [facility] Address: [address] [place] [address] Performed By: #### A LLMG ####[facility] LABIA [id number] [place] [address] [place] Methemoglobin (Bld) [Mass fraction] 1.2 % Normal 0.0-1.5 [facility] Comment on above: Order Comment: Speci men Type: ARTERIAL BLOOD SPECIMENOrdering Facility: [facility] Address: [address] [place] [address] Performed By: #### A LLMG ####[facility] LABIA [id number] [place] [id number] [place] Oxygen (Bld) [Partial pressure] 195 mm Hg High 85-95 [facility] Comment on above: Order Comment: Speci men Type: ARTERIAL BLOOD SPECIMENOrdering Facility: [facility] Address: [address] [place] [address] Performed By: #### A LLMG ####[facility] LABCLIA [id number] [address] [place] [address] [place] Oxygen adjusted to patient's actual temperature (Bld) [Partial pressure] 195 mmHg High 85-95 [facility] Comment on above: Order Comment: Speci men Type: ARTERIAL BLOOD SPECIMENOrdering Facility: [facility] Address: [address] [place] [address] Performed By: #### A LLMG ####[facility] LABCLIA [id number] [place] [id number] [place] Oxyhemoglobin (BldA) [Mass fraction] 97 % Normal 95-98 [facility] Comment on above: Order Comment: Speci men Type: ARTERIAL BLOOD SPECIMENOrdering Facility: [facility] Address: [address] [place] [address] Performed By: #### A LLMG ####[facility] LABCLIA [id number] [place] [id number] [place] pH (Bld) 7.42 [pH] Normal 7.35-7.45 [facility] Comment on above: Order Comment: Speci men Type: ARTERIAL BLOOD SPECIMENOrdering Facility: [facility] Address: [address] [place] [address] Performed By: #### A LLMG ####[facility] LABCLIA [id number] [place] [id number] [place] pH adjusted to patient's actual temperature (Bld) 7.42 Normal 7.35-7.45 [facility] Comment on above: Order Comment: Speci men Type: ARTERIAL BLOOD SPECIMENOrdering Facility: [facility] Address: [address] [place] [address] Performed By: #### A LLMG ####[facility] LABCLIA [id number] [address] [address] [place] Potassium [Moles/Vol] 3.6 mmol/L Normal 3.5-5.0 [facility] Comment on above: Order Comment: Speci men Type: ARTERIAL BLOOD SPECIMENOrdering Facility: [facility] Address: [address] [place] [address] Performed By: #### A LLMG ####[facility] LABIA [id number] [place] [address] [place] Sodium [Moles/Vol] 138 mmol/L Normal 136-144 [facility] Comment on above: Order Comment: Speci men Type: ARTERIAL BLOOD SPECIMENOrdering Facility: [facility] Address: [address] [place] [address] Performed By: #### A LLMG ####[facility] LABIA [id number] [place] [address] [place] Base deficit (BldA) [Moles/Vol] -2 mmol/L Normal -2-0 [facility] Comment on above: Order Comment: Speci men Type: ARTERIAL BLOOD SPECIMENOrdering Facility: [facility] Address: [address] [place] [address] Performed By: #### A LLMG ####[facility] LABIA [id number] [place] [address] [place] Calcium.ionized (Bld) [Mass/Vol] 1.08 mmol/L Normal 1.08-1.30 [facility] Comment on above: Order Comment: Speci men Type: ARTERIAL BLOOD SPECIMENOrdering Facility: [facility] Address: [address] [place] [address] Performed By: #### A LLMG ####[facility] LABIA [id number] [place] [address] [place] Calcium.ionized adjusted to pH 7.4 (BldA) [Moles/Vol] 1.08 mmol/L Normal 1.08-1.30 [facility] Comment on above: Order Comment: Speci men Type: ARTERIAL BLOOD SPECIMENOrdering Facility: [facility] Address: [address] [place] [address] Performed By: #### A LLMG ####[facility] LABCLIA [id number] [place] [address] [place] Carboxyhemoglobin (BldA) [Mass fraction] 1.9 % Normal 0.0-2.0 [facility] Comment on above: Order Comment: Speci men Type: ARTERIAL BLOOD SPECIMENOrdering Facility: [facility] Address: [address] [place] [address] Result Comment: Carb oxyhemoglobin Reference Range for Smokers: 2.0-8.0% Performed By: #### A LLMG ####[facility] LABCLIA [id number] [place] [address] [place] CO2 (Bld) [Partial pressure] 36 mm Hg Normal 36-46 [facility] Comment on above: Order Comment: Speci men Type: ARTERIAL BLOOD SPECIMENOrdering Facility: [facility] Address: [address] [place] [address] Performed By: #### A LLMG ####[facility] LABCLIA [id number] [place] [address] [place] CO2 adjusted to patient's actual temperature (Bld) [Partial pressure] 36 mmHg Normal 36-46 [facility] Comment on above: Order Comment: Speci men Type: ARTERIAL BLOOD SPECIMENOrdering Facility: [facility] Address: [address] [place] [address] Performed By: #### A LLMG ####[facility] LABCLIA [id number] [place] [address] [place] Glucose [Mass/Vol] 178 mg/dL High 60-105 [facility] Comment on above: Order Comment: Speci men Type: ARTERIAL BLOOD SPECIMENOrdering Facility: [facility] Address: [address] [place] [address] Performed By: #### A LLMG ####[facility] LABCLIA [id number] [place] [address] [place] HCO3 (Bld) [Moles/Vol] 22 mmol/L Normal 22-26 [facility] Comment on above: Order Comment: Speci men Type: ARTERIAL BLOOD SPECIMENOrdering Facility: [facility] Address: [address] [place] [address] Performed By: #### A LLMG ####[facility] LABCLIA [id number] [place] [address] [place] Hematocrit (Bld) [Volume fraction] 27.1 % Low 36.0-46.0 [facility] Comment on above: Order Comment: Speci men Type: ARTERIAL BLOOD SPECIMENOrdering Facility: [facility] Address: [address] [place] [address] Performed By: #### A LLMG ####[facility] LABIA [id number] [place] [address] [place] Hemoglobin (Bld) [Mass/Vol] 8.7 g/dL Low 11.5-15.5 [facility] Comment on above: Order Comment: Speci men Type: ARTERIAL BLOOD SPECIMENOrdering Facility: [facility] Address: [address] [place] [address] Performed By: #### A LLMG ####[facility] LABIA [id number] [place] [address] [place] Lactate [Moles/Vol] 1.0 mmol/L Normal 0.5-2.2 [facility] Comment on above: Order Comment: Speci men Type: ARTERIAL BLOOD SPECIMENOrdering Facility: [facility] Address: [address] [place] [address] Performed By: #### A LLMG ####[facility] LABIA [id number] [place] [address] [place] Magnesium [Moles/Vol] 0.85 mmol/L High 0.45-0.60 [facility] Comment on above: Order Comment: Speci men Type: ARTERIAL BLOOD SPECIMENOrdering Facility: [facility] Address: [address] [place] [address] Performed By: #### A LLMG ####[facility] LABCLIA [id number] [address] [address] [place] Methemoglobin (Bld) [Mass fraction] 1.1 % Normal 0.0-1.5 [facility] Comment on above: Order Comment: Speci men Type: ARTERIAL BLOOD SPECIMENOrdering Facility: [facility] Address: [address] [place] [address] Performed By: #### A LLMG ####[facility] LABCLIA [id number] [address] [place] [address] [place] Oxygen (Bld) [Partial pressure] 191 mm Hg High 85-95 [facility] Comment on above: Order Comment: Speci men Type: ARTERIAL BLOOD SPECIMENOrdering Facility: [facility] Address: [address] [place] [address] Performed By: #### A LLMG ####[facility] LABCLIA [id number] [address] [place] [address] [place] Oxygen adjusted to patient's actual temperature (Bld) [Partial pressure] 191 mmHg High 85-95 [facility] Comment on above: Order Comment: Speci men Type: ARTERIAL BLOOD SPECIMENOrdering Facility: [facility] Address: [address] [place] [address] Performed By: #### A LLMG ####[facility] LABCLIA [id number] [address] [address] [place] Oxyhemoglobin (BldA) [Mass fraction] 97 % Normal 95-98 [facility] Comment on above: Order Comment: Speci men Type: ARTERIAL BLOOD SPECIMENOrdering Facility: [facility] Address: [address] [place], [place] [address] Performed By: #### A LLMG ####[facility] LABCLIA [id number] [address] [address] [place] pH (Bld) 7.40 [pH] Normal 7.35-7.45 [facility] Comment on above: Order Comment: Speci men Type: ARTERIAL BLOOD SPECIMENOrdering Facility: [facility] Address: [address] [place] [address] Performed By: #### A LLMG ####[facility] LABIA [id number] [place] [address] [place] pH adjusted to patient's actual temperature (Bld) 7.40 Normal 7.35-7.45 [facility] Comment on above: Order Comment: Speci men Type: ARTERIAL BLOOD SPECIMENOrdering Facility: [facility] Address: [address] [place] [address] Performed By: #### A LLMG ####[facility] LABIA [id number] [place] [address] [place] Potassium [Moles/Vol] 3.7 mmol/L Normal 3.5-5.0 [facility] Comment on above: Order Comment: Speci men Type: ARTERIAL BLOOD SPECIMENOrdering Facility: [facility] Address: [address] [place] [address] Performed By: #### A LLMG ####[facility] LABIA [id number] [place] [address] [place] Sodium [Moles/Vol] 138 mmol/L Normal 136-144 [facility] Comment on above: Order Comment: Speci men Type: ARTERIAL BLOOD SPECIMENOrdering Facility: [facility] Address: [address] [place] [address] Performed By: #### A LLMG ####[facility] LABIA [id number] [place] [id number] [place] Base deficit (BldA) [Moles/Vol] -3 mmol/L Low -2-0 [facility] Comment on above: Order Comment: Speci men Type: ARTERIAL BLOOD SPECIMENOrdering Facility: [facility] Address: [address] [place], [place] [address] Performed By: #### A LLMG ####[facility] [id number] [place] [address] [place] Calcium.ionized (Bld) [Mass/Vol] 1.13 mmol/L Normal 1.08-1.30 [facility] Comment on above: Order Comment: Speci men Type: ARTERIAL BLOOD SPECIMENOrdering Facility: [facility] Address: [address] [place] [address] Performed By: #### A LLMG ####[facility] [id number] [place] [address] [place] Calcium.ionized adjusted to pH 7.4 (BldA) [Moles/Vol] 1.13 mmol/L Normal 1.08-1.30 [facility] Comment on above: Order Comment: Speci men Type: ARTERIAL BLOOD SPECIMENOrdering Facility: [facility] Address: [address] [place] [address] Performed By: #### A LLMG ####[facility] [id number] [place] [address] [place] Carboxyhemoglobin (BldA) [Mass fraction] 1.7 % Normal 0.0-2.0 [facility] Comment on above: Order Comment: Speci men Type: ARTERIAL BLOOD SPECIMENOrdering Facility: [facility] Address: [address] [place] [address] Result Comment: Carb oxyhemoglobin Reference Range for Smokers: 2.0-8.0% Performed By: #### A LLMG ####[facility] [id number] [place] [address] [place] CO2 (Bld) [Partial pressure] 35 mm Hg Low 36-46 [facility] Comment on above: Order Comment: Speci men Type: ARTERIAL BLOOD SPECIMENOrdering Facility: [facility] Address: [address] [place] [address] Performed By: #### A LLMG ####[facility] LABCLIA [id number] [address] [address] [place] CO2 adjusted to patient's actual temperature (Bld) [Partial pressure] 35 mmHg Low 36-46 [facility] Comment on above: Order Comment: Speci men Type: ARTERIAL BLOOD SPECIMENOrdering Facility: [facility] Address: [address] [place] [address] Performed By: #### A LLMG ####[facility] LABCLIA [id number] [place] [id number] [place] Glucose [Mass/Vol] 161 mg/dL High 60-105 [facility] Comment on above: Order Comment: Speci men Type: ARTERIAL BLOOD SPECIMENOrdering Facility: [facility] Address: [address] [place] [address] Performed By: #### A LLMG ####[facility] LABCLIA [id number] [place] [id number] [place] HCO3 (Bld) [Moles/Vol] 21 mmol/L Low 22-26 [facility] Comment on above: Order Comment: Speci men Type: ARTERIAL BLOOD SPECIMENOrdering Facility: [facility] Address: [address] [place] [address] Performed By: #### A LLMG ####[facility] LABCLIA [id number] [place] [id number] [place] Hematocrit (Bld) [Volume fraction] 27.2 % Low 36.0-46.0 [facility] Comment on above: Order Comment: Speci men Type: ARTERIAL BLOOD SPECIMENOrdering Facility: [facility] Address: [address] [place] [address] Performed By: #### A LLMG ####[facility] LABCLIA [id number] [place] [id number] [place] Hemoglobin (Bld) [Mass/Vol] 8.8 g/dL Low 11.5-15.5 [facility] Comment on above: Order Comment: Speci men Type: ARTERIAL BLOOD SPECIMENOrdering Facility: [facility] Address: [address] [place] [address] Performed By: #### A LLMG ####[facility] LABIA [id number] [place] [id number] [place] Lactate [Moles/Vol] 0.9 mmol/L Normal 0.5-2.2 [facility] Comment on above: Order Comment: Speci men Type: ARTERIAL BLOOD SPECIMENOrdering Facility: [facility] Address: [address] [place] [address] Performed By: #### A LLMG ####[facility] LABIA [id number] [place] [address] [place] Magnesium [Moles/Vol] 0.76 mmol/L High 0.45-0.60 [facility] Comment on above: Order Comment: Speci men Type: ARTERIAL BLOOD SPECIMENOrdering Facility: [facility] Address: [address] [place] [address] Performed By: #### A LLMG ####[facility] LABIA [id number] [place] [address] [place] Methemoglobin (Bld) [Mass fraction] 1.5 % Normal 0.0-1.5 [facility] Comment on above: Order Comment: Speci men Type: ARTERIAL BLOOD SPECIMENOrdering Facility: [facility] Address: [address] [place] [address] Performed By: #### A LLMG ####[facility] LABIA [id number] [place] [id number] [place] Oxygen (Bld) [Partial pressure] 202 mm Hg High 85-95 [facility] Comment on above: Order Comment: Speci men Type: ARTERIAL BLOOD SPECIMENOrdering Facility: [facility] Address: [address] [place] [address] Performed By: #### A LLMG ####[facility] LABCLIA [id number] [address] [address] [place] Oxygen adjusted to patient's actual temperature (Bld) [Partial pressure] 202 mmHg High 85-95 [facility] Comment on above: Order Comment: Speci men Type: ARTERIAL BLOOD SPECIMENOrdering Facility: [facility] Address: [address] [place] [address] Performed By: #### A LLMG ####[facility] LABCLIA [id number] [place] [id number] [place] Oxyhemoglobin (BldA) [Mass fraction] 97 % Normal 95-98 [facility] Comment on above: Order Comment: Speci men Type: ARTERIAL BLOOD SPECIMENOrdering Facility: [facility] Address: [address] [place] [address] Performed By: #### A LLMG ####[facility] LABIA [id number] [place] [id number] [place] pH (Bld) 7.40 [pH] Normal 7.35-7.45 [facility] Comment on above: Order Comment: Speci men Type: ARTERIAL BLOOD SPECIMENOrdering Facility: [facility] Address: [address] [place] [address] Performed By: #### A LLMG ####[facility] LABIA [id number] [place] [id number] [place] pH adjusted to patient's actual temperature (Bld) 7.40 Normal 7.35-7.45 [facility] Comment on above: Order Comment: Speci men Type: ARTERIAL BLOOD SPECIMENOrdering Facility: [facility] Address: [address] [place] [address] Performed By: #### A LLMG ####[facility] LABIA [id number] [address] [address] [place] Potassium [Moles/Vol] 3.9 mmol/L Normal 3.5-5.0 [facility] Comment on above: Order Comment: Speci men Type: ARTERIAL BLOOD SPECIMENOrdering Facility: [facility] Address: [address] [place] [address] Performed By: #### A LLMG ####[facility] LABIA [id number] [place] [address] [place] Sodium [Moles/Vol] 139 mmol/L Normal 136-144 [facility] Comment on above: Order Comment: Speci men Type: ARTERIAL BLOOD SPECIMENOrdering Facility: [facility] Address: [address] [place] [address] Performed By: #### A LLMG ####[facility] [id number] [place] [address] [place] Base deficit (BldA) [Moles/Vol] -1 mmol/L Normal -2-0 [facility] Comment on above: Order Comment: Speci men Type: ARTERIAL BLOOD SPECIMENOrdering Facility: [facility] Address: [address] [place] [address] Performed By: #### A LLMG ####[facility] [id number] [place] [address] [place] Calcium.ionized (Bld) [Mass/Vol] 1.13 mmol/L Normal 1.08-1.30 [facility] Comment on above: Order Comment: Speci men Type: ARTERIAL BLOOD SPECIMENOrdering Facility: [facility] Address: [address] [place] [address] Performed By: #### A LLMG ####[facility] [id number] [place] [address] [place] Calcium.ionized adjusted to pH 7.4 (BldA) [Moles/Vol] 1.13 mmol/L Normal 1.08-1.30 [facility] Comment on above: Order Comment: Speci men Type: ARTERIAL BLOOD SPECIMENOrdering Facility: [facility] Address: [address] [place] [address] Performed By: #### A LLMG ####[facility] LABCLIA [id number] [place] [address] [place] Carboxyhemoglobin (BldA) [Mass fraction] 2.0 % Normal 0.0-2.0 [facility] Comment on above: Order Comment: Speci men Type: ARTERIAL BLOOD SPECIMENOrdering Facility: [facility] Address: [address] [place] [address] Result Comment: Carb oxyhemoglobin Reference Range for Smokers: 2.0-8.0% Performed By: #### A LLMG ####[facility] LABCLIA [id number] [place] [address] [place] CO2 (Bld) [Partial pressure] 37 mm Hg Normal 36-46 [facility] Comment on above: Order Comment: Speci men Type: ARTERIAL BLOOD SPECIMENOrdering Facility: [facility] Address: [address] [place] [address] Performed By: #### A LLMG ####[facility] LABCLIA [id number] [place] [address] [place] CO2 adjusted to patient's actual temperature (Bld) [Partial pressure] 37 mmHg Normal 36-46 [facility] Comment on above: Order Comment: Speci men Type: ARTERIAL BLOOD SPECIMENOrdering Facility: [facility] Address: [address] [place] [address] Performed By: #### A LLMG ####[facility] LABCLIA [id number] [place] [id number] [place] Glucose [Mass/Vol] 116 mg/dL High 60-105 [facility] Comment on above: Order Comment: Speci men Type: ARTERIAL BLOOD SPECIMENOrdering Facility: [facility] Address: [address] [place] [address] Performed By: #### A LLMG ####[facility] LABCLIA [id number] [place] [id number] [place] HCO3 (Bld) [Moles/Vol] 23 mmol/L Normal 22-26 [facility] Comment on above: Order Comment: Speci men Type: ARTERIAL BLOOD SPECIMENOrdering Facility: [facility] Address: [address] [place] [address] Performed By: #### A LLMG ####[facility] LABCLIA [id number] [place] [address] [place] Hematocrit (Bld) [Volume fraction] 20.4 % Low 36.0-46.0 [facility] Comment on above: Order Comment: Speci men Type: ARTERIAL BLOOD SPECIMENOrdering Facility: [facility] Address: [address] [place] [address] Performed By: #### A LLMG ####[facility] LABCLIA [id number] [place] [address] [place] Hemoglobin (Bld) [Mass/Vol] 6.5 g/dL Low 11.5-15.5 [facility] Comment on above: Order Comment: Speci men Type: ARTERIAL BLOOD SPECIMENOrdering Facility: [facility] Address: [address] [place] [address] Performed By: #### A LLMG ####[facility] LABCLIA [id number] [place] [address] [place] Lactate [Moles/Vol] 0.9 mmol/L Normal 0.5-2.2 [facility] Comment on above: Order Comment: Speci men Type: ARTERIAL BLOOD SPECIMENOrdering Facility: [facility] Address: [address] [place] [address] Performed By: #### A LLMG ####[facility] LABCLIA [id number] [place] [id number] [place] Magnesium [Moles/Vol] 0.77 mmol/L High 0.45-0.60 [facility] Comment on above: Order Comment: Speci men Type: ARTERIAL BLOOD SPECIMENOrdering Facility: [facility] Address: [address] [place] [address] Performed By: #### A LLMG ####[facility] LABCLIA [id number] [address] [address] [place] Methemoglobin (Bld) [Mass fraction] 1.8 % High 0.0-1.5 [facility] Comment on above: Order Comment: Speci men Type: ARTERIAL BLOOD SPECIMENOrdering Facility: [facility] Address: [address] [place] [id number] Performed By: #### A LLMG ####[facility] LABCLIA [id number] [address] [address] [place] Oxygen (Bld) [Partial pressure] 207 mm Hg High 85-95 [facility] Comment on above: Order Comment: Speci men Type: ARTERIAL BLOOD SPECIMENOrdering Facility: [facility] Address: [address] [place] [address] Performed By: #### A LLMG ####[facility] LABCLIA [id number] [place] [id number] [place] Oxygen adjusted to patient's actual temperature (Bld) [Partial pressure] 207 mmHg High 85-95 [facility] Comment on above: Order Comment: Speci men Type: ARTERIAL BLOOD SPECIMENOrdering Facility: [facility] Address: [address] [place] [id number] Performed By: #### A LLMG ####[facility] LABCLIA [id number] [address] [place] [address] [place] Oxyhemoglobin (BldA) [Mass fraction] 96 % Normal 95-98 [facility] Comment on above: Order Comment: Speci men Type: ARTERIAL BLOOD SPECIMENOrdering Facility: [facility] Address: [address] [place] [phone] Performed By: #### A LLMG ####[facility] LABCLIA [id number] [place] [id number] [place] pH (Bld) 7.41 [pH] Normal 7.35-7.45 [facility] Comment on above: Order Comment: Speci men Type: ARTERIAL BLOOD SPECIMENOrdering Facility: [facility] Address: [address] [place] [address] Performed By: #### A LLMG ####[facility] LABIA [id number] [place] [address] [place] pH adjusted to patient's actual temperature (Bld) 7.41 Normal 7.35-7.45 [facility] Comment on above: Order Comment: Speci men Type: ARTERIAL BLOOD SPECIMENOrdering Facility: [facility] Address: [address] [place] [address] Performed By: #### A LLMG ####[facility] LABIA [id number] [place] [address] [place] Potassium [Moles/Vol] 3.3 mmol/L Low 3.5-5.0 [facility] Comment on above: Order Comment: Speci men Type: ARTERIAL BLOOD SPECIMENOrdering Facility: [facility] Address: [address] [place] [address] Performed By: #### A LLMG ####[facility] LABIA [id number] [place] [address] [place] Sodium [Moles/Vol] 140 mmol/L Normal 136-144 [facility] Comment on above: Order Comment: Speci men Type: ARTERIAL BLOOD SPECIMENOrdering Facility: [facility] Address: [address] [place] [address] Performed By: #### A LLMG ####[facility] LABIA [id number] [place] [id number] [place] Amylase (Body fld) [Catalyti c activity/Vol]on 03-17-2025 Fluid Nom (Body fld) Drainage (Specify s ite in comment) Normal [facility] Comment on above: Order Comment: Speci men Type: FLUID SPECIMENOrdering Facility: [facility] Address: [address] [place] [address] Result Comment: STEVE Mclain Performed By: #### 1 795-4 ####[facility] LABCLIA [id number] [address] [place] Result Comment: LEFT Amylase Fld-cCncon 5 Amylase (Body fld) [Catalytic activity/Vol] 572 U/L Normal See Comment [facility] Comment on above: Order Comment: Speci men Type: FLUID SPECIMENOrdering Facility: [facility] Address: [address] [place] [address] Result Comment: PLEU RAL FLUIDS:Amylase measurement in pleural fluid is considered a useful test for detecting amylase-rich pleural effusions, which may be caused by exudative conditions associated with pancreatitis, esophageal rupture, malignancy, pneumonia, and liver cirrhosis. A ratio of pleural fluid amylase to a concurrent serum amylase >1 is defined asan amylase-rich pleural effusion.PERITONEAL FLUIDS AND DRAINAGE FLUIDS:Pancreatic damage causes extravasation of amylase from the exocrine cells into the peritoneal space. In cases of pancreatitis, fluid amylase should be at least several-fold times higher in fluid of pancreatic origin compared to concurrent serum amylase values.PANCREATIC CYST FLUID:Pancreatic cyst fluid amylase may aid in characterizing tumors and should be interpreted along with other clinical and laboratory information.References:1. Rachana RAMIREZ, Sanjay Manzano. Body fluid analysis: clinical utility and applicability of published studies to guide interpretation of todays laboratory testing in serous fluids. Crit Rev Clin Lab Sci, 2013;50(4-5):107-124.2. CLSI. Analysis of Body Fluids in Clinical Chemistry; Approved Guideline. CLSI document C49-A. MarkoABIGAIL: Clinical Laboratory Standards [place]; 2007.3. Jerman CHURCHILL, Fartun ROD, Adalgisa HUA. Use of cyst fluid CEA, CA19-9, and amylase for evaluation of pancreatic lesions. Clinical Biochemistry. 2009;42:2447-5632. Performed By: #### 1 795-4 ####[facility] LABCLIA [id number] [place] [address] [place] Amylase (Body fld) [Catalytic activity/Vol] 4626 U/L Normal See Comment [facility] Comment on above: Order Comment: Speci men Type: FLUID SPECIMENOrdering Facility: [facility] Address: [address] [place] [address] Result Comment: PLEU RAL FLUIDS:Amylase measurement in pleural fluid is considered a useful test for detecting amylase-rich pleural effusions, which may be caused by exudative conditions associated with pancreatitis, esophageal rupture, malignancy, pneumonia, and liver cirrhosis. A ratio of pleural fluid amylase to a concurrent serum amylase >1 is defined asan amylase-rich pleural effusion.PERITONEAL FLUIDS AND DRAINAGE FLUIDS:Pancreatic damage causes extravasation of amylase from the exocrine cells into the peritoneal space. In cases of pancreatitis, fluid amylase should be at least several-fold times higher in fluid of pancreatic origin compared to concurrent serum amylase values.PANCREATIC CYST FLUID:Pancreatic cyst fluid amylase may aid in characterizing tumors and should be interpreted along with other clinical and laboratory information.References:1. Rachana RAMIREZ, Sanjay Manzano. Body fluid analysis: clinical utility and applicability of published studies to guide interpretation of todays laboratory testing in serous fluids. Crit Rev Clin Lab Sci, 2013;50(4-5):107-124.2. CLSI. Analysis of Body Fluids in Clinical Chemistry; Approved Guideline. CLSI document C49-A. ABIGAIL Zhu: Clinical Laboratory Standards [place]; 2007.3. Jerman CLH, Fartun RC, Adalgisa DJ. Use of cyst fluid CEA, CA19-9, and amylase for evaluation of pancreatic lesions. Clinical Biochemistry. 2009;42:8671-1765. Performed By: #### 1 795-4 ####[facility] LABCLIA [id number] [place] [address] [place] Amylase SerPl-cCncon 03-17- 025 Amylase [Catalytic activity/Vol] 651 U/L High 30-104 [facility] Comment on above: Order Comment: Speci men Type: BLOOD SPECIMENOrdering Facility: [facility] Address: [address] [place] [address] Performed By: #### 2 4321-2, 1797-8, 72570-5, 2776-1 ####[facility] LABCLIA [id number] [facility] [id number] [address] [place] BRIEF OP NOTon 03-17-2025 BRIEF OP NOT Normal [facility] Bacteria Spec Anaerobe Culto n 03-17-2025 Bacteria identified Anaer cx Nom (Unsp spec) Negative Normal [facility] Comment on above: Performed By: #### 6 35-3, 19761-8, 6462-6 ####[facility] LABCLIA [id number] [facility] [id number] [address] [place] Bacteria Wnd Culton 03-17-20 Bacteria identified Cx Nom (Wound) Abnormal [facility] Comment on above: Performed By: #### 6 35-3, 76495-9, 6462-6 ####[facility] LABCLIA [id number] [facility] [address] [place] [address] [place] Basic metabolic 2000 panelon 03-17-2025 Anion gap [Moles/Vol] 11 mmol/L Normal 8-15 [facility] Comment on above: Order Comment: Speci men Type: BLOOD SPECIMENOrdering Facility: [facility] Address: [address] [place] [address] Performed By: #### 2 4321-2, 8, , 2776- ####[facility] LABCLIA [id number] [facility] [address] [place] [address] [place] Calcium [Mass/Vol] 8.4 mg/dL Low 8.5-10.2 [facility] Comment on above: Order Comment: Speci men Type: BLOOD SPECIMENOrdering Facility: [facility] Address: [address] [place] [address] Performed By: #### 2 4321-2, 1797-8, 97743-8, 2776-1 ####[facility] LABCLIA [id number] [place] [id number] [place] Chloride [Moles/Vol] 105 mmol/L Normal 98-107 [facility] Comment on above: Order Comment: Speci men Type: BLOOD SPECIMENOrdering Facility: [facility] Address: [address] [place] [address] Performed By: #### 2 4321-2, 1797-8, 86184-7, 7-1 ####[facility] LABIA [id number] [place] [id number] [place] CO2 [Moles/Vol] 24 mmol/L Normal 22-30 [facility] Comment on above: Order Comment: Speci men Type: BLOOD SPECIMENOrdering Facility: [facility] Address: [address] [place] [address] Performed By: #### 2 4321-2, 8, 87906-4, 2776-1 ####[facility] LABIA [id number] [place] [address] [place] Creatinine [Mass/Vol] 0.55 mg/dL Low 0.58-0.96 [facility] Comment on above: Order Comment: Speci men Type: BLOOD SPECIMENOrdering Facility: [facility] Address: [address] [place] [address] Performed By: #### 2 4321-2, 8, , 2777-1 ####[facility] LABIA [id number] [place] [id number] [place] Creatinine and Glomerular filtration rate.predicted panel (S/P/Bld) 99 mL/min/1.73m??? Normal >=60 [facility] Comment on above: Order Comment: Speci men Type: BLOOD SPECIMENOrdering Facility: [facility] Address: [address] [place] [address] Result Comment: Lupe mated Glomerular Filtration Rate [...] reflect actual GFR. Performed By: #### 2 4321-2, 1798-04, , 2776-09 ####[facility] LABCLIA [id number] [address] [address] [place] Glucose [Mass/Vol] 161 mg/dL High 74-99 [facility] Comment on above: Order Comment: Sonia little Type: BLOOD SPECIMENOrdering Facility: [facility] Address: [address] [place] [address] Result Comment: The [place] [employer] (ADA) provides guidance for cutoff values for fasting glucose and random glucose. The ADA defines fasting as no caloric intake for at least 8 hours. Fasting plasma glucose results between 100 to 125 mg/dL indicate increased risk for diabetes (prediabetes).Fasting plasma glucose results greater than or equal to 126 mg/dL meet the criteria for diagnosis of diabetes. In the absence of unequivocal hyperglycemia, results should be confirmed by repeat testing. In a patient with classic symptoms of hyperglycemia or hyperglycemic crisis, random plasma glucose results greater than or equal to 200 mg/dL meet the criteria for diagnosis of diabetes.Reference: Standards of Medical Care in Diabetes 2016, [place] [employer]. Diabetes Care. 2016.39(Suppl 1). Performed By: #### 2 4321-2, 1798-04, , 2776-09 ####[facility] LABCLIA [id number] [address] [address] [place] Potassium [Moles/Vol] 3.8 mmol/L Normal 3.7-5.1 [facility] Comment on above: Order Comment: Sonia little Type: BLOOD SPECIMENOrdering Facility: [facility] Address: [address] [place] [address] Performed By: #### 2 4321-2, 1798-04, , 2776-09 ####[facility] LABCLIA [id number] [place] [id number] [place] Sodium [Moles/Vol] 140 mmol/L Normal 136-144 [facility] Comment on above: Order Comment: Speci men Type: BLOOD SPECIMENOrdering Facility: [facility] Address: [address] [place] [address] Performed By: #### 2 4321-2, 1797-8, 78474-1, 2777-1 ####[facility] LABIA [id number] [place] [address] [place] Urea nitrogen [Mass/Vol] 5 mg/dL Low 7-21 [facility] Comment on above: Order Comment: Speci men Type: BLOOD SPECIMENOrdering Facility: [facility] Address: [address] [place] [address] Performed By: #### 2 4321-2, 1797-8, 62387-5, 2777-1 ####[facility] LABIA [id number] [place] [address] [place] CBC W Auto Differential pane l (Bld)on 03-17-2025 Basophils (Bld) [#/Vol] 0.03 10*3/uL Normal <0.11 [facility] Comment on above: Order Comment: Speci men Type: BLOOD SPECIMENOrdering Facility: [facility] Address: [address] [place] [address] Performed By: #### 5 7021-8 ####[facility] LABIA [id number] [place] [address] [place] Basophils/100 WBC (Bld) 0.2 % Normal [facility] Comment on above: Order Comment: Speci men Type: BLOOD SPECIMENOrdering Facility: [facility] Address: [address] [place] [address] Performed By: #### 5 7021-8 ####[facility] LABIA [id number] [place] [id number] [place] Differential cell count method Nom (Bld) Auto Normal [facility] Comment on above: Order Comment: Speci men Type: BLOOD SPECIMENOrdering Facility: [facility] Address: [address] [place] [address] Performed By: #### 5 7021-8 ####[facility] LABCLIA [id number] [place] [address] [place] Eosinophils (Bld) [#/Vol] 10*3/uL Normal <0.46 [facility] Comment on above: Order Comment: Speci men Type: BLOOD SPECIMENOrdering Facility: [facility] Address: [address] [place] [address] Performed By: #### 5 7021-8 ####[facility] LABCLIA [id number] [place] [address] [place] Eosinophils/100 WBC (Bld) 0.0 % Normal [facility] Comment on above: Order Comment: Speci men Type: BLOOD SPECIMENOrdering Facility: [facility] Address: [address] [place] [address] Performed By: #### 5 7021-8 ####[facility] LABCLIA [id number] [place] [address] [place] Erythrocyte distribution width (RBC) [Ratio] 15.5 % High 11.5-15.0 [facility] Comment on above: Order Comment: Speci men Type: BLOOD SPECIMENOrdering Facility: [facility] Address: [address] [place] [address] Performed By: #### 5 7021-8 ####[facility] LABCLIA [id number] [place] [address] [place] Hematocrit (Bld) [Volume fraction] 29.8 % Low 36.0-46.0 [facility] Comment on above: Order Comment: Speci men Type: BLOOD SPECIMENOrdering Facility: [facility] Address: [address] [place] [address] Performed By: #### 5 7021-8 ####[facility] LABCLIA [id number] [place] [address] [place] Hemoglobin (Bld) [Mass/Vol] 9.4 g/dL Low 11.5-15.5 [facility] Comment on above: Order Comment: Speci men Type: BLOOD SPECIMENOrdering Facility: [facility] Address: [address] [place] [address] Performed By: #### 5 7021-8 ####[facility] LABCLIA [id number] [place] [address] [place] Immature granulocytes (Bld) [#/Vol] 0.07 10*3/uL Normal <0.10 [facility] Comment on above: Order Comment: Speci men Type: BLOOD SPECIMENOrdering Facility: [facility] Address: [address] [place] [address] Performed By: #### 5 7021-8 ####[facility] LABIA [id number] [place] [address] [place] Immature granulocytes/100 WBC (Bld) 0.5 % Normal [facility] Comment on above: Order Comment: Speci men Type: BLOOD SPECIMENOrdering Facility: [facility] Address: [address] [place] [address] Performed By: #### 5 7021-8 ####[facility] LABCLIA [id number] [place] [address] [place] Lymphocytes (Bld) [#/Vol] 0.62 10*3/uL Low 1.00-4.00 [facility] Comment on above: Order Comment: Speci men Type: BLOOD SPECIMENOrdering Facility: [facility] Address: [address] [place] [address] Performed By: #### 5 7021-8 ####[facility] LABCLIA [id number] [place] [address] [place] Lymphocytes/100 WBC (Bld) 4.5 % Normal [facility] Comment on above: Order Comment: Speci men Type: BLOOD SPECIMENOrdering Facility: [facility] Address: [address] [place] [address] Performed By: #### 5 7021-8 ####[facility] LABIA [id number] [place] [address] [place] MCH (RBC) [Entitic mass] 25.5 pg Low 26.0-34.0 [facility] Comment on above: Order Comment: Speci men Type: BLOOD SPECIMENOrdering Facility: [facility] Address: [address] [place] [address] Performed By: #### 5 7021-8 ####[facility] LABIA [id number] [place] [address] [place] MCHC (RBC) [Mass/Vol] 31.5 g/dL Normal 30.5-36.0 [facility] Comment on above: Order Comment: Speci men Type: BLOOD SPECIMENOrdering Facility: [facility] Address: [address] [place] [address] Performed By: #### 5 7021-8 ####[facility] LABIA [id number] [place] [address] [place] MCV (RBC) [Entitic vol] 81.0 fL Normal 80.0-100.0 [facility] Comment on above: Order Comment: Speci men Type: BLOOD SPECIMENOrdering Facility: [facility] Address: [address] [place] [address] Performed By: #### 5 7021-8 ####[facility] LABIA [id number] [place] [address] [place] Monocytes (Bld) [#/Vol] 0.92 10*3/uL High <0.87 [facility] Comment on above: Order Comment: Speci men Type: BLOOD SPECIMENOrdering Facility: [facility] Address: [address] [place] [address] Performed By: #### 5 7021-8 ####[facility] LABCLIA [id number] [address], [place] [address] [place] Monocytes/100 WBC (Bld) 6.6 % Normal [facility] Comment on above: Order Comment: Speci men Type: BLOOD SPECIMENOrdering Facility: [facility] Address: [address] [place] [address] Performed By: #### 5 7021-8 ####[facility] LABCLIA [id number] [place] [address] [place] Neutrophils (Bld) [#/Vol] 12.27 10*3/uL High 1.45-7.50 [facility] Comment on above: Order Comment: Speci men Type: BLOOD SPECIMENOrdering Facility: [facility] Address: [address] [place] [address] Performed By: #### 5 7021-8 ####[facility] LABIA [id number] [address], [place] [address] [place] Neutrophils/100 WBC (Bld) 88.2 % Normal [facility] Comment on above: Order Comment: Speci men Type: BLOOD SPECIMENOrdering Facility: [facility] Address: [address] [place] [address] Performed By: #### 5 7021-8 ####[facility] LABCLIA [id number] [place] [id number] [place] Nucleated RBC (Bld) [#/Vol] 10*3/uL Normal <0.01 [facility] Comment on above: Order Comment: Speci men Type: BLOOD SPECIMENOrdering Facility: [facility] Address: [address] [place] [address] Performed By: #### 5 7021-8 ####[facility] LABCLIA [id number] [place] [id number] [place] Nucleated RBC/100 WBC (Bld) [Ratio] 0.0 /100 WBC Normal [facility] Comment on above: Order Comment: Speci men Type: BLOOD SPECIMENOrdering Facility: [facility] Address: [address] [place] [address] Performed By: #### 5 7021-8 ####[facility] LABCLIA [id number] [place] [address] [place] Platelet mean volume (Bld) [Entitic vol] 9.7 fL Normal 9.0-12.7 [facility] Comment on above: Order Comment: Speci men Type: BLOOD SPECIMENOrdering Facility: [facility] Address: [address] [place] [address] Performed By: #### 5 7021-8 ####[facility] LABCLIA [id number] [place] [address] [place] Platelets (Bld) [#/Vol] 337 10*3/uL Normal 150-400 [facility] Comment on above: Order Comment: Speci men Type: BLOOD SPECIMENOrdering Facility: [facility] Address: [address] [place] [address] Performed By: #### 5 7021-8 ####[facility] LABIA [id number] [place] [address] [place] RBC (Bld) [#/Vol] 3.68 10*6/uL Low 3.90-5.20 [facility] Comment on above: Order Comment: Speci men Type: BLOOD SPECIMENOrdering Facility: [facility] Address: [address] [place] [address] Performed By: #### 5 7021-8 ####[facility] LABCLIA [id number] [place] [id number] [place] WBC (Bld) [#/Vol] 13.91 10*3/uL High 3.70-11.00 [facility] Comment on above: Order Comment: Speci men Type: BLOOD SPECIMENOrdering Facility: [facility] Address: [address] [place] [address] Performed By: #### 5 7021-8 ####[facility] LABCLIA [id number] [place] [id number] [place] MISMATCH REPAIR PROTEINS BY IHCon 03-17-2025 AP BIOMARKER DISCLAIMER Normal [facility] Comment on above: Order Comment: Speci men Type: TISSUE SPECIMENOrdering Facility: [facility] Address: [address] [place] [address] Result Comment: Sav anthony Developed Test (LDT) Disclaimer:Performance characteristics of immunohistochemical, immunofluorescent, and chromogenic in-situ hybridization tests have been determined by the performing laboratory within [facility] Pathology and Laboratory Medicine Department ([facility], [facility], [facility], [facility], [facility], [facility], or [facility]) in a manner consistent with CLIA requirements. One or more of these tests may not have been cleared or approved by the FDA. RT-PLM is regulated under CLIA as qualified to perform high-complexity testing. These tests are used for clinical purposes. These should not be regarded as investigational or for research. Positive and negative controls stain appropriately. Performed By: #### L [id number] ####[facility] LABCLIA [id number] [place] [address] [place] AP BLOCK ID [id number] Normal [facility] Comment on above: Order Comment: Speci men Type: TISSUE SPECIMENOrdering Facility: [facility] Address: [address] [place] [address] Performed By: #### L [id number] ####[facility] LABCLIA [id number] [place] [id number] [place] BIOMARKER INTERPRETATION COMMENT AND REFERENCE RANGE Normal [facility] Comment on above: Order Comment: Speci men Type: TISSUE SPECIMENOrdering Facility: [facility] Address: [address] [place] [address] Result Comment: Immu nohistochemical stains for mismatch repair proteins were performed and show loss of expression of MLH1 and PMS2 in carcinoma nuclei with retained expression of MSH2 and MSH6. Controls were appropriately positive for each immunohistochemical stain. Loss of protein expression for any of the mismatch repair genes helps to identify the causative gene for the MSI-H phenotype and makes further mutation testing more efficient if indicated following genetic counseling. Immunohistochemical results are not definitive evidence of germline versus a tumor-acquired alteration with many tumors previously considered to be highly suggestive of Portillo syndrome based on molecular and/or immunohistochemical analyses, arise due to tumor-acquired mutations rather than germline mutations.In a phase 2 study of patients with metastatic carcinoma, Nelda et al ([facility] 2015;372:6179-73) reported that clinical benefit of pembrolizumab, an anti-programmed 1 (PD-1) immune checkpoint inhibitor, was predicted by the tumor's mismatch repair status; mismatch repair deficient (dMMR) tumors are more responsive to PD-1 blockade than mismatch repair proficient tumors.Pembrolizumab is FDA-approved for the treatment of adult and pediatric patients with unresectable or metastatic solid tumors that display microsatellite instability-high (MSI-H) by PCR assay or dMMR by immunohistochemistry (IHC). The FDA does not distinguish between PCR and IHC-based assays, as these are considered equivalent and complimentary tests.As clinically indicated, and in the appropriate setting of genetic counseling with informed patient consent, further genetic testing may be helpful. For more information or questions about this result, please call the [facility] at [phone]. Performed By: #### L [id number] ####[facility] LABCLIA [id number] [place] [address] [place] BIOMARKER METHOD Normal [facility] Comment on above: Order Comment: Speci men Type: TISSUE SPECIMENOrdering Facility: [facility] Address: [address] [place] [address] Performed By: #### L [id number] ####[facility] LABCLIA [id number] [place] [id number] [place] [facility] CASE NUMBER MMR [id number] Normal [facility] Comment on above: Order Comment: Speci men Type: TISSUE SPECIMENOrdering Facility: [facility] Address: [address] [place] [address] Performed By: #### L [id number] ####[facility] LABCLIA [id number] [address] [address] [place] FINAL PERFORMING LAB Normal [facility] Comment on above: Order Comment: Speci men Type: TISSUE SPECIMENOrdering Facility: [facility] Address: [address] [place] [address] Result Comment: Diag nostic interpretation performed at: [facility], [address] [place] [address] CLIA# [id number] Director: Anish Blackwell MDElectronically signed out by: Keo Muñiz MD Performed By: #### L [id number] ####[facility] LABCLIA [id number] [place] [id number] [place] FIXATIVE Formalin, 10% Neutral Buffered Normal [facility] Comment on above: Order Comment: Speci men Type: TISSUE SPECIMENOrdering Facility: [facility] Address: [address] [place] [address] Performed By: #### L [id number] ####[facility] LABCLIA [id number] [place] [id number] [place] MLH1 IMMUNOHISTOCHEMICAL RESULTS Loss of Nuclear Expression Abnormal [facility] Comment on above: Order Comment: Speci men Type: TISSUE SPECIMENOrdering Facility: [facility] Address: [address] [place] [address] Performed By: #### L [id number] ####[facility] LABCLIA [id number] [place] [id number] [place] MLH1 PROMOTER METHYLATION ASSAY Yes, Reported Separately Normal [facility] Comment on above: Order Comment: Speci men Type: TISSUE SPECIMENOrdering Facility: [facility] Address: [address] [place] [address] Performed By: #### L [id number] ####[facility] LABCLIA [id number] [place] [address] [place] MMR INTERPRETATION Deficient Mismatch R epair (dMMR) Abnormal [facility] Comment on above: Order Comment: Speci men Type: TISSUE SPECIMENOrdering Facility: [facility] Address: [address] [place] [address] Performed By: #### L [id number] ####[facility] LABCLIA [id number] [place] [address] [place] MSH2 IMMUNOHISTOCHEMICAL RESULTS Normal/Intact Nuclear Expression Normal [facility] Comment on above: Order Comment: Speci men Type: TISSUE SPECIMENOrdering Facility: [facility] Address: [address] [place], [place] [address] Performed By: #### L [id number] ####[facility] LABCLIA [id number] [place] [address] [place] MSH6 IMMUNOHISTOCHEMICAL RESULTS Normal/Intact Nuclear Expression Normal [facility] Comment on above: Order Comment: Speci men Type: TISSUE SPECIMENOrdering Facility: [facility] Address: [address] [place] [address] Performed By: #### L [id number] ####[facility] LABCLIA [id number] [place] [address] [place] PMS2 IMMUNOHISTOCHEMICAL RESULTS Loss of Nuclear Expression Abnormal [facility] Comment on above: Order Comment: Speci men Type: TISSUE SPECIMENOrdering Facility: [facility] Address: [address] [place], [place] [address] Performed By: #### L [id number] ####[facility] LABCLIA [id number] [place] [id number] [place] TUMOR TYPE MMR Other (See Comment) Normal [facility] Comment on above: Order Comment: Speci men Type: TISSUE SPECIMENOrdering Facility: [facility] Address: [address] [place] [address] Result Comment: 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 Performed By: #### L [id number] ####[facility] LABCLIA [id number] [place] [address] [place] MLH1 PROMOTER HYPERMETHYLATI ONon 03-17-2025 MLH1 PROMOTER HYPERMETHYLATION Normal [facility] Comment on above: Order Comment: Speci men Type: TISSUE SPECIMENOrdering Facility: [facility] Address: [address] [place] [address] Result Comment: MLH1 Promoter HypermethylationLaboratory Accession Number: [id number] #: [id number] #: J13% Tumor: 40MLH1 Promoter Hypermethylation: PresentTissue Analyzed:PancreaticoduodenectomyReference Range:Methylation Absent means that MLH1 promoter region methylation isobserved to be less than or equal to 9%.Methylation Present means that MLH1 promoter region methylation isobserved to be greater than or equal to 10%.Interpretation:Presence of MLH1 hypermethylation suggests a sporadic, rather thanhereditary, etiology of colorectal and endometrial tumors that havehigh microsatellite instability (MSI-H) and/or loss of MLH1 proteinexpression. Patients with this tumor phenotype have a low likelihoodof a germline mutation in a DNA mismatch repair gene. However, a smallpercentage of Portillo syndrome patients may also have MLH1 promoterhypermethylation, and as such, the presence of hypermethylation of theMLH1 promoter cannot definitively rule out Portillo syndrome.Portillo syndrome is a hereditary cancer predisposition caused bygermline mutations in one of the DNA mismatch repair genes. High-frequency microsatellite instability (MSI-H) occurs in most [place] endometrial adenocarcinomas arising from Portillo syndrome. However,most colorectal and endometrial cancers with MSI-H and loss of AQS7qbsupic expression can be attributed to somatic promoterhypermethylation of the MLH1 gene and subsequent suppression of IVU1fyatllc production rather than Portillo syndrome. Testing for methylationof the MLH1 promoter in tumor tissue helps differentiate sporadic fromhereditary tumors and guide further evaluation.Methodology:Formalin-fixed, paraffin-embedded tumor tissue was microdissected toenrich for tumor cells. Genomic DNA was purified and treated withsodium bisulfite to convert unmethylated cytosine residues to uracil.PCR amplification of a targeted region of the MLH1 promoter wasperformed and methylation of four CpG sites in the region encompassing-209bp to -181bp from the business operations consultant start site was analyzed bypyrosequencing of the amplicons (Meijob Q48 AutoprepInstrument).References:1) Trinh , et al. Utility of MLH1 methylation analysis in theclinical evaluation of Portillo Syndrome in women with endometrialcancer. Curr Pharm Kyle. 2014;20(11):1655-63.2) Farhat Simpson, et al. Methylation of CpG in a small region of the hBDI6canigmiy invariably correlates with the absence of gene expression.Cancer Res. 199 January 21;59(9):2029-33.3) Natalia Redd, et al. MLH1 promoter hypermethylation in the analyticalalgorithm of Portillo syndrome: a cost-effectiveness study. Eur J HumGenet. 2012 Mar;20(7):762-8.4) Carlos DEVI, et al. Incidence and functional consequences of lHGA4zhbybewp hypermethylation in colorectal carcinoma. Proc Natl Acad SciU S A. 1998 Mar 01;95(12):6870-5.5) Remigio Garcia, et al. Tumour MLH1 promoter region methylation testing isan effective prescreen for Portillo Syndrome (HNPCC). J Med Vicky. 2014Dec;51(12):789-96.6) Emerald Rome, et al. Methylation analysis of MLH1 improves theselection of patients for genetic testing in Portillo syndrome. J MolecDiagn. 2010 Mar;12(4495-504.Disclaimer:This test was developed and its performance characteristics determinedby [facility]'s Pathology and Laboratory Medicine Department. Ithas not been cleared or approved by the FDA. [facility] is regulated under CLIAas certified to perform high-complexity testing. This test is used forclinical purposes. It should not be regarded as investigational or forresearch.Test performed at [facility], [address] [place] [address], [place]. CLIA Number: [id number] performed by Johana Iyer MD, PhD Performed By: #### M [facility] ####[facility] [id number] [place] [address] [place] Magnesium SerPl-mCncon 03-17 Magnesium [Mass/Vol] 1.8 mg/dL Normal 1.7-2.3 [facility] Comment on above: Order Comment: Speci men Type: BLOOD SPECIMENOrdering Facility: [facility] Address: [address] [place] [address] Performed By: #### 2 4321-2, 1798-8, 77368-7, 2777-1 ####[facility] LABCLIA [id number] [place] [address] [place] Microorganism Spec Culton Microorganism identified Cx Nom (Unsp spec) CULTURE, FUNGAL: No Fungus isolated after 28 days FUNGAL SMEAR: No fungus seen Normal [facility] Comment on above: Performed By: #### 6 35-3, 14424-1, 6462-6 ####[facility] LABCLIA [id number] [place] [address] [place] OPERATIVE NOon 03-17-2025 OPERATIVE NO Normal [facility] Pathology biopsy report Tyron (Tiss)on 03-17-2025 AP DISCLAIMER Normal [facility] Comment on above: Order Comment: Speci men Type: TISSUE SPECIMENOrdering Facility: [facility] Address: [address] [place] [address] Result Comment: Sav anthony Developed Test (LDT) Disclaimer:Performance characteristics of immunohistochemical, immunofluorescent, and chromogenic in-situ hybridization tests have been determined by the performing laboratory within [facility]'s Dominic Yousuf [facility] Pathology and Laboratory Medicine Department ([facility], [facility], [facility], [facility], [facility], [facility], or [facility]) in a manner consistent with CLIA requirements. One or more of these tests may not have been cleared or approved by the FDA. RT-PLM is regulated under CLIA as qualified to perform high-complexity testing. These tests are used for clinical purposes. These should not be regarded as investigational or for research. Positive and negative controls stain appropriately. Performed By: #### 6 6121-5 ####[facility] LABCLIA [id number] [address] [place] [address] [place] BLOCK FOR ADDITIONAL BIOMARKERS/MOLECULAR STUDIES J8 Normal [facility] Comment on above: Order Comment: Speci men Type: TISSUE SPECIMENOrdering Facility: [facility] Address: [address] [place] [address] Performed By: #### 6 6121-5 ####[facility] LABIA [id number] [address] [place] [address] [place] CASE REPORT Normal [facility] Comment on above: Order Comment: Speci men Type: TISSUE SPECIMENOrdering Facility: [facility] Address: [address] [place] [address] Result Comment: [facility] Pathology Report Case: [id number] Provider: Earl Cardenas MD Collected: 03/17/2025 09:14 AMOrdering Location: Admitting Received: 03/17/2025 09:38 AMPathologist: Hardeep Bone MDIntraop: Raj Villegas MDSpecimens: A) - Adipose Tissue B) - Liver, Biopsy, liver bx #1 C) - Liver, Biopsy, #2 D) - Appendix, Appendectomy E) - Lymph Node (Specify Site in Comments), hepatic artery lymph node F) - Gallbladder G) - Omentum, Resection H) - Bile Duct, Biopsy, bile duct margin I) - Pancreas, Biopsy, pancreatic neck margin biopsy J) - Pancreaticoduodenectomy (Whipple Procedure), portal vein margin - blue, uncinate - yellow Performed By: #### 6 6121-5 ####[facility] LABIA [id number] [address] [place] [address] [place] CLINICAL HISTORY Normal [facility] Comment on above: Order Comment: Speci men Type: TISSUE SPECIMENOrdering Facility: [facility] Address: [address] [place] [address] Result Comment: Pre- op diagnosis:Preoperative examination [Z01.818]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 Immunohistochemic al stains for MMR proteins have been ordered and will be resulted separately. Normal [facility] Comment on above: Order Comment: Speci men Type: TISSUE SPECIMENOrdering Facility: [facility] Address: [address] [place] [address] Performed By: #### 6 6121-5 ####[facility] LABIA [id number] [address] STATES OF [facility] FINAL DIAGNOSIS Normal [facility] Comment on above: Order Comment: Speci men Type: TISSUE SPECIMENOrdering Facility: [facility] Address: [address] [place] [address] Result Comment: A. Adipose tissue , excision:- Fibroadipose tissue with no significant histopathologic findings, negative for tumor.B. Liver, biopsy #1:- Benign hyalinized/calcified nodule.C. Liver, biopsy #2:- Bile duct hamartoma.D. Appendix, appendectomy:- Appendix with no significant histopathologic findings.E. Hepatic artery lymph node, excision:- One lymph node, negative for tumor (0/1).F. Gallbladder, cholecystectomy:- Chronic cholecystitis.G. Omentum, resection:- Fibroadipose tissue with no significant histopathologic findings, negative for tumor.H. Bile duct margin, excision:- Portion of bile duct, negative for dysplasia and tumor.I. Pancreatic neck margin, excision:- Portion of pancreas with no significant histopathologic findings, negative for dysplasia and tumor.J. 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 at 1224 EDT Performed By: #### 6 6121-5 ####[facility] LABCLIA [id number] [address] OF [facility] FINAL PERFORMING LAB Normal [facility] Comment on above: Order Comment: Speci men Type: TISSUE SPECIMENOrdering Facility: [facility] Address: [address] [place] [address] Result Comment: Diag nostic interpretation performed at: [facility], [address] [place] [address] CLIA# [id number] Director: Anish Blackwell MD Performed By: #### 6 6121-5 ####[facility] LABCLIA [id number] [address] GROSS DESCRIPTION Normal [facility] Comment on above: Order Comment: Speci men Type: TISSUE SPECIMENOrdering Facility: [facility] Address: [address] [place] [address] Result Comment: A. A dipose TissueReceived in formalin labeled adipose tissue is a 15.0 x 4.2 x 1.0 cm segment of lobulated adipose tissue, focally surfaced by jay-pink, smooth membranous tissue. Sectioning reveals lobulated, unremarkable cut surfaces. No potential lymph nodes are identified. A membership sales representative section is submitted in cassette A1.Gross examination performed at [place], [place] [address]JXM 03/17/25 1:05 PMB. Liver, BiopsyReceived fresh for intraoperative consultation labeled liver biopsy #1 is 1 fragment of jay-brown tissue measuring 0.6 x 0.6 x 0.3 cm, which is completely submitted for frozen as FS B1.Gross examination performed at [address] [place] [id number] 03/17/25 10:19 AMC. Liver, BiopsyReceived fresh for intraoperative consultation labeled liver biopsy #2 is 1 fragment of jay-brown tissue measuring 0.3 x 0.2 x 0.2 cm which is completely submitted for frozen as FS C1.Gross examination performed at [address] [id number] 03/17/25 10:19 AMD. Appendix, AppendectomyReceived in formalin labeled appendix, appendectomy is a 6.5 cm in length, 0.6 cm in diameter appendix with a 5.9 x 1.7 x 0.4 cm segment of attached mesoappendix. The serosa is jay-pink, smooth, and intact. The proximal margin is inked black. Sectioning reveals a minimally dilated lumen containing fecal material. The mucosa is jay-pink and unremarkable. The wall thickness measures up to 0.1 cm. Fountain Operator sections, including the proximal margin, mesoappendiceal margin, cross-sections, and entire bisected distal tip, are submitted in cassette D1.Gross examination performed at [address] [id number] 03/17/25 1:09 PME. Lymph Node (Specify Site in Comments)Received fresh for intraoperative consultation labeled hepatic artery lymph node is 1 fragment of jay-red tissue measuring 2.5 x 1.5 x 0.5 cm, which is bisected and completely submitted for frozen is as FSE1 and FSE2.Gross examination performed at [address] [id number] 03/17/25 10:50 AMF. GallbladderReceived in formalin labeled gallbladder is a 10.2 x 4.3 x 2.0 cm gallbladder with a patent cystic duct. A cystic duct lymph node is not identified. The serosa is jay-pink, smooth, and intact. Opening reveals green, viscous bile and no calculi. The cystic duct does not contain calculi. The mucosa is jay-pink and velvety without polyps or lesions. Sectioning reveals an average wall thickness of 0.2 cm. Fountain Operator sections, including the cystic duct margin, are submitted in cassette F1.G. Omentum, ResectionReceived in formalin labeled omentum, resection is a 23.4 x 9.5 x 0.9 cm segment of omentum. Sectioning reveals lobulated, unremarkable cut surfaces. No nodules or omental caking are grossly identified. Fountain Operator sections are submitted in cassette G1. Gross examination performed at [address] [id number] 03/17/25 1:16 PMH. Bile Duct, BiopsyReceived fresh for intraoperative consultation labeled bile duct margin is 1 fragment of jay-red tissue measuring 1 x 0.6 x 0.3 cm, which is completely submitted for frozen as FS H1.Gross examination performed at [address] [id number] 03/17/25 12:02 PMI. Pancreas, BiopsyReceived fresh for intraoperative fixation labeled) cardiac neck margin biopsy is 1 fragment of jay soft tissue measuring 1.2 x 0.6 x 0.3 cm, which is completely submitted for frozen as FS I1.Gross examination performed at [address] [address]KOD 03/17/25 12:02 PMJ. Pancreaticoduodenectomy (Whipple Procedure)Received in formalin, labeled ???pancreaticoduodenectomy??? is a Whipple specimen consisting of a segment of pylorus (3.2 cm in length by 6.5 cm in internal circumference), a segment of duodenum (18.5 cm in length by 5.0-8.2 cm range in circumference), a 3.5 cm in length common bile duct without attached gallbladder, and a 4.6 x 3.4 x 1.8 cm segment of proximal pancreas and peripancreatic fat. Per the requisition, blue ink merino the vascular groove surface and yellow ink merino the uncinate margin. No portal vein is present.The pancreatic neck margin is inked orange, the outer surface of the bile duct is inked green, and the remaining outer surface of the pancreas is inked black. The main pancreatic duct measures 0.3 cm in diameter at the margin and is probe patent. The main pancreatic duct appears to be inserting into the minor duodenal papilla. The common bile duct measures 0.5 cm in diameter at the margin and is probe patent. No stents are present. There is no accessory duct identified. A photograph is taken.The specimen is bivalved to reveal a 10.2 x 8.0 x 2.2 cm irregularly shaped, duodenal mass at the ampulla. A gross photograph is taken. The lesion is well-defined, jay-pink and soft with heaped up borders. The mass grossly extends through the muscularis with possible extension into the peripancreatic fat and posterior pancreas. The lesion does not appear to involve the main pancreatic duct grossly, and appears to stenose the most distal common bile duct. The lesion is located 3.4 cm of the false pancreatic neck margin 7.4 cm of the false common bile duct margin, 1.5 cm of the posterior retroperitoneal surface, 2.1 cm of the uncinate margin, 3.4 cm of the vascular groove surface, and 0.9 cm of the anterior pancreatic surface.The remaining pancreatic parenchyma is jay, firm, and normally lobulated with no additional lesions identified. The portions of stomach and duodenum are unremarkable. A complete lymph node dissection is performed. There are five lymph node candidates within the gastric adipose tissue, ranging from 0.2-0.4 cm in greatest dimension. Within the peripancreatic soft tissue are fourteen lymph node candidates, ranging from 0.3-2.5 cm in greatest dimension.Fountain Operator sections are submitted as follows:J1-J2: Uncinate margin, perpendicularJ3: Vascular groove surface, perpendicularJ4: Proximal gastric margin, perpendicularJ5: Distal duodenal margin, perpendicularJ6: Mass at major duodenal papilla with common bile ductJ7: Mass at minor duodenal papilla with main pancreatic ductJ8-J9: Duodenal mass extending into the muscularis with possible extension into the posterior ayqydodbK07: Mass to anterior free ypxyfrwH67: Mass to posterior retroperitoneal free hyizliqI80: Full cross-section of duodenal dbxgA13-G91: Mass to uninvolved ttciyiokY98: Five intact gastric lymph node elzvcjcutmC89: Six intact pancreatic lymph node vhylmmpzsrP54: Three intact pancreatic lymph node qzsljspmulA39-F42: One pancreatic lymph node candidate serially sectioned in each jpmldykbQ05-W43: Largest pancreatic lymph node candidate serially gyqeawgazO61: One pancreatic lymph node candidate, qdviwvikZ69: One pancreatic lymph node candidate, bisectedHMZ 03/18/25 4:42 PMGross examination performed at [facility], [facility] [id number] Performed By: #### 6 6121-5 ####[facility] LABIA [id number] [place] [address] [place] INTRAOPERATIVE DIAGNOSIS Normal [facility] Comment on above: Order Comment: Speci men Type: TISSUE SPECIMENOrdering Facility: [facility] Address: [address] [place] [address] Result Comment: B. L iver, BiopsyFSB 1-benign calcified nodule (Dr. Villegas).Intraoperative diagnosis performed at [facility], [facility] [place] [address] CLIA# [id number]. Liver, BiopsyFSC1-bile duct hamartoma (Dr. Villegas and Dr. Bone).Intraoperative diagnosis performed at [facility], [facility] [address] CLIA# [id number]. Lymph Node (Specify Site in Comments)FSE1 and FSE2-lymph node, negative for tumor (Dr. Melvin).Intraoperative diagnosis performed at [facility], [facility] [place] [address] CLIA# [id number]. Bile Duct, BiopsyFSH 1-negative for tumor (Dr. Melvin).Intraoperative diagnosis performed at [facility], [address] [place] [address] CLIA# [id number]. Pancreas, BiopsyFSI1-negative for tumor (Dr. Melvin).Intraoperative diagnosis performed at [facility], [facility] [place] [address] CLIA# [id number] Performed By: #### 6 6121-5 ####[facility] LABIA [id number] [address] [place] SYNOPTIC REPORT SMALL INTESTINE Normal [facility] Comment on above: Order Comment: Speci men Type: TISSUE SPECIMENOrdering Facility: [facility] Address: [address] [place] [address] Result Comment: SMAL L INTESTINE: RESECTION - All Ilkqrsmff3mr Edition - Protocol posted: 03/22/2021PECIMEN Procedure: Pancreaticoduodenectomy (Whipple resection)TUMOR Tumor Site: Duodenum 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 (20%) Histologic Grade: G3, poorly differentiated Tumor Size: Greatest Dimension (Centimeters): 10.2 cm Tumor Extent: Directly invades other organ(s) or structure(s) : Pancreas Macroscopic Tumor Perforation: Not identified Lymphovascular Invasion: PresentMARGINS Margin Status for Invasive Carcinoma: All margins negative for invasive carcinoma Closest Margin(s) to Invasive Carcinoma: Uncinate (retroperitoneal / superior mesenteric artery) Distance from Invasive Carcinoma to Closest Margin: 2.1 cm Margin Status for Dysplasia: All margins negative for carcinoma in situ (high-grade dysplasia) / adenomaREGIONAL LYMPH NODES Regional Lymph Node Status: : Tumor present in regional lymph node(s) Number of Lymph Nodes with Tumor: 1 Number of Lymph Nodes Examined: 22PATHOLOGIC STAGE CLASSIFICATION (pTNM, AJCC 8th Edition) Reporting of pT, pN, and (when applicable) pM categories is based on information available to the pathologist at the time the report is issued. As per the AJCC (Chapter 1, 8th Ed.) it is the managing physician???s responsibility to establish the final pathologic stage based upon all pertinent information, including but potentially not limited to this pathology report. pT Category: pT4 pN Category: [id number] FINDINGS Additional Findings: Adenoma(s) Performed By: #### 6 6121-5 ####[facility] [id number] [place] [address] [place] Phosphate SerPl-mCncon 03-17 Phosphate [Mass/Vol] 3.8 mg/dL Normal 2.7-4.8 [facility] Comment on above: Order Comment: Speci men Type: BLOOD SPECIMENOrdering Facility: [facility] Address: [address] [place] [address] Performed By: #### 2 4321-2, 1798-8, 19989-3, 2777-1 ####[facility] LABCLIA [id number] [place] [address] [place] CBC W Ordered Manual Differe ntial panel (Bld)on 03-09-2025 Basophils (Bld) [#/Vol] 0.03 10*3/uL NINF [facility] Basophils/100 WBC (Bld) 0.4 % [facility] Differential cell count method Nom (Bld) Auto [facility] Eosinophils (Bld) [#/Vol] 0.21 10*3/uL [facility] Eosinophils/100 WBC (Bld) 2.7 % [facility] Erythrocyte distribution width (RBC) [Ratio] 15.5 % High 11.5 - 15.0 % [facility] Hematocrit (Bld) [Volume fraction] 26.4 % Low 36.0 - 46.0 % [facility] Hemoglobin (Bld) [Mass/Vol] 8.1 g/dL Low 11.5 - 15.5 g/dL [facility] Immature granulocytes (Bld) [#/Vol] 0.03 10*3/uL [facility] Immature granulocytes/100 WBC (Bld) 0.4 % [facility] Interpretation and review of laboratory results Abnormal [facility] Lymphocytes (Bld) [#/Vol] 1.08 10*3/uL [facility] Lymphocytes/100 WBC (Bld) 13.7 % [facility] MCH (RBC) [Entitic mass] 24.3 pg Low 26.0 - 34.0 pg [facility] MCHC (RBC) [Mass/Vol] 30.7 g/dL 30.5 - 36.0 g/dL [facility] MCV (RBC) [Entitic vol] 79.3 fL Low 80.0 - 100.0 fL [facility] Monocytes (Bld) [#/Vol] 0.76 10*3/uL [facility] Monocytes/100 WBC (Bld) 9.6 % [facility] Neutrophils (Bld) [#/Vol] 5.78 10*3/uL [facility] Neutrophils/100 WBC (Bld) 73.2 % [facility] Nucleated RBC (Bld) [#/Vol] [facility] Nucleated RBC/100 WBC (Bld) [Ratio] 0 % /100 WBC [facility] Platelet mean volume (Bld) [Entitic vol] 9.7 fL 9.0 - 12.7 fL [facility] Platelets (Bld) [#/Vol] 318 10*3/uL [facility] RBC (Bld) [#/Vol] 3.33 10*6/uL Low 3.90 - 5.20 m/uL [facility] WBC (Bld) [#/Vol] 7.89 10*3/uL [facility] This is an appended report. These results have been appended to a previously verified report. [facility] Basophils (Bld) [#/Vol] 0.03 10*3/uL Normal <0.11 [facility] Comment on above: Order Comment: Speci men Type: BLOOD SPECIMENOrdering Facility: [facility] Address: [address] [place] [address] Performed By: #### 1 4196-0, 86219-9, STFREV ####[facility] [id number] [place] [address] [place] Basophils/100 WBC (Bld) 0.4 % Normal [facility] Comment on above: Order Comment: Speci men Type: BLOOD SPECIMENOrdering Facility: [facility] Address: [address] [place] [address] Performed By: #### 1 4196-0, 13720-7, STFREV ####[facility] [id number] [place] [address] [place] Differential cell count method Nom (Bld) Auto Normal [facility] Comment on above: Order Comment: Speci men Type: BLOOD SPECIMENOrdering Facility: [facility] Address: [address] [place] [address] Performed By: #### 1 4196-0, 93572-3, STFREV ####[facility] [id number] [place] [address] [place] Eosinophils (Bld) [#/Vol] 0.21 10*3/uL Normal <0.46 [facility] Comment on above: Order Comment: Speci men Type: BLOOD SPECIMENOrdering Facility: [facility] Address: [address] [place] [address] Performed By: #### 1 4196-0, 40268-6, STFREV ####[facility] [id number] [place] [address] [place] Eosinophils/100 WBC (Bld) 2.7 % Normal [facility] Comment on above: Order Comment: Speci men Type: BLOOD SPECIMENOrdering Facility: [facility] Address: [address] [place] [address] Performed By: #### 1 4196-0, 81048-5, STFREV ####[facility] [id number] [place] [address] [place] Erythrocyte distribution width (RBC) [Ratio] 15.5 % High 11.5-15.0 [facility] Comment on above: Order Comment: Speci men Type: BLOOD SPECIMENOrdering Facility: [facility] Address: [address] [place] [address] Performed By: #### 1 4196-0, 68689-9, STFREV ####[facility] [id number] [place] [address] [place] Hematocrit (Bld) [Volume fraction] 26.4 % Low 36.0-46.0 [facility] Comment on above: Order Comment: Speci men Type: BLOOD SPECIMENOrdering Facility: [facility] Address: [address] [place] [address] Performed By: #### 1 4196-0, 99869-6, STFREV ####[facility] [id number] [place] [address] [place] Hemoglobin (Bld) [Mass/Vol] 8.1 g/dL Low 11.5-15.5 [facility] Comment on above: Order Comment: Speci men Type: BLOOD SPECIMENOrdering Facility: [facility] Address: [address] [place] [address] Performed By: #### 1 4196-0, 98450-1, STFREV ####[facility] [id number] [place] [address] [place] Immature granulocytes (Bld) [#/Vol] 0.03 10*3/uL Normal <0.10 [facility] Comment on above: Order Comment: Speci men Type: BLOOD SPECIMENOrdering Facility: [facility] Address: [address] [place] [address] Performed By: #### 1 4196-0, 36479-0, STFREV ####[facility] [id number] [place] [address] [place] Immature granulocytes/100 WBC (Bld) 0.4 % Normal [facility] Comment on above: Order Comment: Speci men Type: BLOOD SPECIMENOrdering Facility: [facility] Address: [address] [place] [address] Performed By: #### 1 4196-0, 55455-4, STFREV ####[facility] [id number] [place] [address] [place] Lymphocytes (Bld) [#/Vol] 1.08 10*3/uL Normal 1.00-4.00 [facility] Comment on above: Order Comment: Speci men Type: BLOOD SPECIMENOrdering Facility: [facility] Address: [address] [place] [address] Performed By: #### 1 4196-0, 69292-2, STFREV ####[facility] [id number] [place] [address] [place] Lymphocytes/100 WBC (Bld) 13.7 % Normal [facility] Comment on above: Order Comment: Speci men Type: BLOOD SPECIMENOrdering Facility: [facility] Address: [address] [place] [address] Performed By: #### 1 4196-0, 53180-7, STFREV ####[facility] [id number] [place] [id number] MCH (RBC) [Entitic mass] 24.3 pg Low 26.0-34.0 [facility] Comment on above: Order Comment: Speci men Type: BLOOD SPECIMENOrdering Facility: [facility] Address: [address] [place] [address] Performed By: #### 1 4196-0, 50993-9, STFREV ####[facility] [id number] [place] [address] [place] MCHC (RBC) [Mass/Vol] 30.7 g/dL Normal 30.5-36.0 [facility] Comment on above: Order Comment: Speci men Type: BLOOD SPECIMENOrdering Facility: [facility] Address: [address] [place] [address] Performed By: #### 1 4196-0, 92493-1, STFREV ####[facility] [id number] [place] [address] [place] MCV (RBC) [Entitic vol] 79.3 fL Low 80.0-100.0 [facility] Comment on above: Order Comment: Speci men Type: BLOOD SPECIMENOrdering Facility: [facility] Address: [address] [place] [address] Performed By: #### 1 4196-0, 07221-4, STFREV ####[facility] [id number] [place] [address] [place] Monocytes (Bld) [#/Vol] 0.76 10*3/uL Normal <0.87 [facility] Comment on above: Order Comment: Speci men Type: BLOOD SPECIMENOrdering Facility: [facility] Address: [address] [place] [address] Performed By: #### 1 4196-0, 19674-3, STFREV ####[facility] [id number] [address] [id number] [address] [place] Monocytes/100 WBC (Bld) 9.6 % Normal [facility] Comment on above: Order Comment: Speci men Type: BLOOD SPECIMENOrdering Facility: [facility] Address: [address] [place] [address] Performed By: #### 1 4196-0, 92796-6, STFREV ####[facility] [id number] [place] [address] [place] Neutrophils (Bld) [#/Vol] 5.78 10*3/uL Normal 1.45-7.50 [facility] Comment on above: Order Comment: Speci men Type: BLOOD SPECIMENOrdering Facility: [facility] Address: [address] [place] [address] Performed By: #### 1 4196-0, 01423-4, STFREV ####[facility] [id number] [place] [address] [place] Neutrophils/100 WBC (Bld) 73.2 % Normal [facility] Comment on above: Order Comment: Speci men Type: BLOOD SPECIMENOrdering Facility: [facility] Address: [address] [place] [address] Performed By: #### 1 4196-0, 16490-8, STFREV ####[facility] [id number] [place] [address] [place] Nucleated RBC (Bld) [#/Vol] 10*3/uL Normal <0.01 [facility] Comment on above: Order Comment: Speci men Type: BLOOD SPECIMENOrdering Facility: [facility] Address: [address] [place] [address] Performed By: #### 1 4196-0, 15089-6, STFREV ####[facility] [id number] [place] [address] [place] Nucleated RBC/100 WBC (Bld) [Ratio] 0.0 /100 WBC Normal [facility] Comment on above: Order Comment: Speci men Type: BLOOD SPECIMENOrdering Facility: [facility] Address: [address] [place] [address] Performed By: #### 1 4196-0, 25948-3, STFREV ####[facility] [id number] [place] [address] [place] Platelet mean volume (Bld) [Entitic vol] 9.7 fL Normal 9.0-12.7 [facility] Comment on above: Order Comment: Speci men Type: BLOOD SPECIMENOrdering Facility: [facility] Address: [address] [place] [address] Performed By: #### 1 4196-0, 58971-5, STFREV ####[facility] [id number] [place] [address] [place] Platelets (Bld) [#/Vol] 318 10*3/uL Normal 150-400 [facility] Comment on above: Order Comment: Speci men Type: BLOOD SPECIMENOrdering Facility: [facility] Address: [address] [place] [address] Performed By: #### 1 4196-0, 60574-6, STFREV ####[facility] [id number] [place] [address] [place] RBC (Bld) [#/Vol] 3.33 10*6/uL Low 3.90-5.20 [facility] Comment on above: Order Comment: Speci men Type: BLOOD SPECIMENOrdering Facility: [facility] Address: [address] [place] [address] Performed By: #### 1 4196-0, 27148-2, STFREV ####[facility] [id number] [place] [address] [place] WBC (Bld) [#/Vol] 7.89 10*3/uL Normal 3.70-11.00 [facility] Comment on above: Order Comment: Speci men Type: BLOOD SPECIMENOrdering Facility: [facility] Address: [address] [place] [address] Performed By: #### 1 4196-0, 63200-3, TAMIKO ####[facility] [id number] [place] [address] [place] CNOVon 03-09-2025 CNOV Normal [facility] CNOVSPon 03-09-2025 CNOVSP Normal [facility] Cobalamin (Vitamin B12) [Mas s/Vol]on 03-09-2025 Interpretation and review of laboratory results Abnormal [facility] FOLATE, SERUMon 03-09-2025 Folate [Mass/Vol] 16.5 ng/mL 4.7 - PINF ng/mL [facility] Folate SerPl-ncon 03-09-20 Folate [Mass/Vol] 16.5 ng/mL Normal >4.7 [facility] Comment on above: Order Comment: Speci men Type: BLOOD SPECIMENOrdering Facility: [facility] Address: [address] [place] [address] Performed By: #### 4 542-7, 2132-05, 2284-04 ####[facility] LABCLIA [id number] [place] [address] [place] Folate [Mass/Vol]on 03-09-20 Interpretation and review of laboratory results Normal [facility] HAPTOGLOBINon 03-09-2025 Haptoglobin [Mass/Vol] 263 mg/dL High 31 - 238 mg/dL [facility] Haptoglob SerPl-mCncon 03-09 Haptoglobin [Mass/Vol] 263 mg/dL High 31-238 [facility] Comment on above: Order Comment: Speci men Type: BLOOD SPECIMENOrdering Facility: [facility] Address: [address] [place] [address] Performed By: #### 4 542-7, 21319, 8 ####[facility] LABCLIA [id number] [place] [address] [place] Haptoglobin [Mass/Vol]on Interpretation and review of laboratory results Abnormal [facility] LACTATE DEHYDROGENASEon 02-21 LDH [Catalytic activity/Vol] 219 U/L High 135 - 214 U/L [facility] LDH SerPl-cCncon 03-09-2025 LDH [Catalytic activity/Vol] 219 U/L High 135-214 [facility] Comment on above: Order Comment: Speci men Type: BLOOD SPECIMENOrdering Facility: [facility] Address: [address] [place] [address] Performed By: #### 2 532-0 ####[facility] [id number] [place] [address] [place] LDH [Catalytic activity/Vol] on 03-09-2025 Interpretation and review of laboratory results Abnormal [facility] No Panel Informationon 03-09 [facility] PATHOLOGIST INTERPRETATION C BC/DIFFon 03-09-2025 V Belt Inspector review Tyron (Unsp spec) [Interp] No review performed. Normal [facility] Comment on above: Order Comment: Speci men Type: BLOOD SPECIMENOrdering Facility: [facility] Address: [address] [place] [address] Performed By: #### 1 4196-0, 55680-1, STFREV ####[facility] [id number] [place] [address] [place] STAFF REVIEW, CBCDIF Normal [facility] Comment on above: Order Comment: Speci men Type: BLOOD SPECIMENOrdering Facility: [facility] Address: [address] [place] [address] Performed By: #### 1 4196-0, 48549-2, STFREV ####[facility] [id number] [place] [address] [place] RETICULOCYTE COUNTon 025 Reticulocytes (Bld) [#/Vol] 0.071 10*3/uL [facility] Retics #on 03-09-2025 Reticulocytes (Bld) [#/Vol] 0.15316 10*3/uL Normal 0.018-0.10 0 [facility] Comment on above: Order Comment: Speci men Type: BLOOD SPECIMENOrdering Facility: [facility] Address: [address] [place] [address] Performed By: #### 1 4196-0, 14479-2, TAMIKO ####[facility] [id number] [place] [address] [place] Reticulocytes (Bld) [#/Vol]o n 03-09-2025 Interpretation and review of laboratory results Abnormal [facility] Reticulocytes/100 RBC (Bld) 2.1 % High 0.4 - 2.0 % [facility] Reticulocytes/100 RBC (Bld) 2.1 % High 0.4-2.0 [facility] Comment on above: Order Comment: Speci men Type: BLOOD SPECIMENOrdering Facility: [facility] Address: [address] [place] [address] Performed By: #### 1 4196-0, 82021-9, TAMIKO ####[facility] [id number] [place] [address] [place] VITAMIN B12on 03-09-2025 Cobalamin (Vitamin B12) [Mass/Vol] 1494 pg/mL High 232 - 1245 pg/mL [facility] Vit B12 SerPl-mCncon 025 Cobalamin (Vitamin B12) [Mass/Vol] 1494 pg/mL High 232-1245 [facility] Comment on above: Order Comment: Speci men Type: BLOOD SPECIMENOrdering Facility: [facility] Address: [address] [place] [address] Performed By: #### 4 542-7, 2132-9, 2284-8 ####[facility] [id number] [place] [address] [place] CASE MANAGEMon 03-07-2025 CASE MANAGEM Normal [facility] MRI LIVER WO/W IVCONon 03-07 MRI LIVER WO/W IVCON Normal [facility] CBC W Auto Differential pane l (Bld)on 03-05-2025 Basophils (Bld) [#/Vol] 0.04 10*3/uL Normal <0.11 [facility] Comment on above: Order Comment: Speci men Type: BLOOD SPECIMENOrdering Facility: [facility] Address: [address] [place] [address] Performed By: #### 5 7021-8 ####[facility] LABCLIA [id number] [place] [address] [place] Basophils/100 WBC (Bld) 0.6 % Normal [facility] Comment on above: Order Comment: Speci men Type: BLOOD SPECIMENOrdering Facility: [facility] Address: [address] [place] [address] Performed By: #### 5 7021-8 ####[facility] LABCLIA [id number] [place] [address] [place] Differential cell count method Nom (Bld) Auto Normal [facility] Comment on above: Order Comment: Speci men Type: BLOOD SPECIMENOrdering Facility: [facility] Address: [address] [place] [address] Performed By: #### 5 7021-8 ####[facility] LABCLIA [id number] [place] [address] [place] Eosinophils (Bld) [#/Vol] 0.39 10*3/uL Normal <0.46 [facility] Comment on above: Order Comment: Speci men Type: BLOOD SPECIMENOrdering Facility: [facility] Address: [address] [place] [address] Performed By: #### 5 7021-8 ####[facility] LABCLIA [id number] [address] [place] [address] [place] Eosinophils/100 WBC (Bld) 5.6 % Normal [facility] Comment on above: Order Comment: Speci men Type: BLOOD SPECIMENOrdering Facility: [facility] Address: [address] [place] [address] Performed By: #### 5 7021-8 ####[facility] LABCLIA [id number] [address], [place] [address] [place] Erythrocyte distribution width (RBC) [Ratio] 15.6 % High 11.5-15.0 [facility] Comment on above: Order Comment: Speci men Type: BLOOD SPECIMENOrdering Facility: [facility] Address: [address] [place] [address] Performed By: #### 5 7021-8 ####[facility] LABCLIA [id number] [address], [place] [address] [place] Hematocrit (Bld) [Volume fraction] 26.9 % Low 36.0-46.0 [facility] Comment on above: Order Comment: Speci men Type: BLOOD SPECIMENOrdering Facility: [facility] Address: [address] [place] [address] Performed By: #### 5 7021-8 ####[facility] LABCLIA [id number] [address], [facility]95 [place] Hemoglobin (Bld) [Mass/Vol] 8.1 g/dL Low 11.5-15.5 [facility] Comment on above: Order Comment: Speci men Type: BLOOD SPECIMENOrdering Facility: [facility] Address: [address] [place] [address] Performed By: #### 5 7021-8 ####[facility] LABCLIA [id number] [address], [facility]95 [place] Immature granulocytes (Bld) [#/Vol] 10*3/uL Normal <0.10 [facility] Comment on above: Order Comment: Speci men Type: BLOOD SPECIMENOrdering Facility: [facility] Address: [address] [place] [address] Performed By: #### 5 7021-8 ####[facility] LABCLIA [id number] [place] [address] [place] Immature granulocytes/100 WBC (Bld) 0.3 % Normal [facility] Comment on above: Order Comment: Speci men Type: BLOOD SPECIMENOrdering Facility: [facility] Address: [address] [place] [address] Performed By: #### 5 7021-8 ####[facility] LABCLIA [id number] [place] [address] [place] Lymphocytes (Bld) [#/Vol] 1.28 10*3/uL Normal 1.00-4.00 [facility] Comment on above: Order Comment: Speci men Type: BLOOD SPECIMENOrdering Facility: [facility] Address: [address] [place] [address] Performed By: #### 5 7021-8 ####[facility] LABCLIA [id number] [place] [address] [place] Lymphocytes/100 WBC (Bld) 18.5 % Normal [facility] Comment on above: Order Comment: Speci men Type: BLOOD SPECIMENOrdering Facility: [facility] Address: [address] [place] [address] Performed By: #### 5 7021-8 ####[facility] LABCLIA [id number] [place] [id number] [place] MCH (RBC) [Entitic mass] 24.7 pg Low 26.0-34.0 [facility] Comment on above: Order Comment: Speci men Type: BLOOD SPECIMENOrdering Facility: [facility] Address: [address] [place] [address] Performed By: #### 5 7021-8 ####[facility] LABCLIA [id number] [place] [address] [place] MCHC (RBC) [Mass/Vol] 30.1 g/dL Low 30.5-36.0 [facility] Comment on above: Order Comment: Speci men Type: BLOOD SPECIMENOrdering Facility: [facility] Address: [address] [place] [address] Performed By: #### 5 7021-8 ####[facility] LABIA [id number] [place] [address] [place] MCV (RBC) [Entitic vol] 82.0 fL Normal 80.0-100.0 [facility] Comment on above: Order Comment: Speci men Type: BLOOD SPECIMENOrdering Facility: [facility] Address: [address] [place] [address] Performed By: #### 5 7021-8 ####[facility] LABIA [id number] [place] [address] [place] Monocytes (Bld) [#/Vol] 0.60 10*3/uL Normal <0.87 [facility] Comment on above: Order Comment: Speci men Type: BLOOD SPECIMENOrdering Facility: [facility] Address: [address] [place] [address] Performed By: #### 5 7021-8 ####[facility] LABIA [id number] [place] [address] [place] Monocytes/100 WBC (Bld) 8.7 % Normal [facility] Comment on above: Order Comment: Speci men Type: BLOOD SPECIMENOrdering Facility: [facility] Address: [address] [place] [address] Performed By: #### 5 7021-8 ####[facility] LABCLIA [id number] [place] [address] [place] Neutrophils (Bld) [#/Vol] 4.59 10*3/uL Normal 1.45-7.50 [facility] Comment on above: Order Comment: Speci men Type: BLOOD SPECIMENOrdering Facility: [facility] Address: [address] [place] [address] Performed By: #### 5 7021-8 ####[facility] LABCLIA [id number] [place] [address] [place] Neutrophils/100 WBC (Bld) 66.3 % Normal [facility] Comment on above: Order Comment: Speci men Type: BLOOD SPECIMENOrdering Facility: [facility] Address: [address] [place] [address] Performed By: #### 5 7021-8 ####[facility] LABCLIA [id number] [place] [address] [place] Nucleated RBC (Bld) [#/Vol] 10*3/uL Normal <0.01 [facility] Comment on above: Order Comment: Speci men Type: BLOOD SPECIMENOrdering Facility: [facility] Address: [address] [place] [address] Performed By: #### 5 7021-8 ####[facility] LABCLIA [id number] [place] [address] [place] Nucleated RBC/100 WBC (Bld) [Ratio] 0.0 /100 WBC Normal [facility] Comment on above: Order Comment: Speci men Type: BLOOD SPECIMENOrdering Facility: [facility] Address: [address] [place] [address] Performed By: #### 5 7021-8 ####[facility] LABCLIA [id number] [place] [id number] [place] Platelet mean volume (Bld) [Entitic vol] 10.2 fL Normal 9.0-12.7 [facility] Comment on above: Order Comment: Speci men Type: BLOOD SPECIMENOrdering Facility: [facility] Address: [address] [place] [address] Performed By: #### 5 7021-8 ####[facility] LABCLIA [id number] [place] [address] [place] Platelets (Bld) [#/Vol] 346 10*3/uL Normal 150-400 [facility] Comment on above: Order Comment: Speci men Type: BLOOD SPECIMENOrdering Facility: [facility] Address: [address] [place] [address] Performed By: #### 5 7021-8 ####[facility] [id number] [place] [address] [place] RBC (Bld) [#/Vol] 3.28 10*6/uL Low 3.90-5.20 [facility] Comment on above: Order Comment: Speci men Type: BLOOD SPECIMENOrdering Facility: [facility] Address: [address] [place] [address] Performed By: #### 5 7021-8 ####[facility] [id number] [place] [address] [place] WBC (Bld) [#/Vol] 6.92 10*3/uL Normal 3.70-11.00 [facility] Comment on above: Order Comment: Speci men Type: BLOOD SPECIMENOrdering Facility: [facility] Address: [address] [place] [address] Performed By: #### 5 7021-8 ####[facility] [id number] [place] [address] [place] CEA SerPl-ncon 03-05-2025 Carcinoembryonic Ag [Mass/Vol] 1.5 ng/mL Normal <=2.9 [facility] Comment on above: Order Comment: Speci men Type: BLOOD SPECIMENOrdering Facility: [facility] Address: [address] [place] [address] Result Comment: Carc inoembryonic antigen test is used as an aid in monitoring response to treatment or recurrence in patients with established colorectal, breast, lung, prostatic, pancreatic, and ovarian carcinomas. Clinical correlation is required.The Carcinoembryonic antigen test was performed using the [employer] [place] [employer] DXI paramagnetic particle chemiluminescent immunoassay method. Results obtained with different assay methods or kits cannot be used interchangeably. Performed By: #### 2 4108-3, 2039-02 ####[facility] LABCLIA [id number] [place] [address] [place] CNOVon 03-05-2025 CNOV Normal [facility] CREATININE, BLOOD (POC)on Creatinine [Mass/Vol] 0.6 mg/dL Abnormal 0.7 - 1.4 mg/dL [facility] eGFR (POCT) mL/min/1.7 3 m2 [facility] Interpretation and review of laboratory results Abnormal [facility] Location:Radiology [facility], [address] [place] [address], [facility] Adults (18+): eGFR is calculated using the 2020 CKD-EPI Creatinine Equation. Pediatric patients (<18): eGFR should be clinically calculated using the 2020 Ramirez Equation. The National [employer] provides online calculators. [facility] POINT OF CARE [facility] CRP SerPl-mCncon 03-05-2025 CRP [Mass/Vol] 2.4 mg/dL High <0.9 [facility] Comment on above: Order Comment: Speci men Type: BLOOD SPECIMENOrdering Facility: [facility] Address: [address] [place] [address] Performed By: #### 5 0190-8, 2276-4, 30599-5, 1988-01 ####[facility] LABCLIA [id number] [place] [id number] [place] CT ABD/PEL W IVCONon 03-05- 025 CT ABD/PEL W IVCON Normal [facility] CT Abdomen and Pelvis W cont rast Chandni 03-05-2025 Radiology Study observation (narrative) [facility] IMPRESSION: No interval change from 02/19/2025. Stable 4 cm segment of D2/D3 duodenum with circumferential wall thickening suspicious for primary neoplasm. No upstream bowel obstruction. Stable biliary dilation. Hazy soft tissue stranding along hepatic hilum and surrounding the common hepatic artery/celiac. Stable enlarged, likely metastatic and centrally necrotic peripancreatic lymph node. Indeterminate above fluid attenuation hepatic lesions can be further characterized on upcoming liver MR (scheduled for 03/07/2025). Regulatory Affairs Director: DEMETRIUS Transcribe Date/Time: Mar 05 2025 11:37A Dictated by : SUPA AGUSTIN MD This examination was interpreted and the report reviewed and electronically signed by: SUPA AGUSTIN MD on Mar 05 2025 11:59AM [facility] DIVISION OF RADIOLOGY * * *Final Report* * * DATE OF EXAM: Mar 05 2025 11:34AM [facility] 0530 - CT ABD/PEL W IVCON / PROCEDURE REASON: Intra-abdominal and pelvic swelling, mass and lump, unspecified site * * * * Physician Interpretation * * * * EXAMINATION: CT ABDOMEN AND PELVIS WITH IV CONTRAST CLINICAL HISTORY: Duodenal thickening identified on CT scan in January at outside hospital suspicious for neoplasm. Endoscopy has not yet been performed. TECHNIQUE: CT of the abdomen and pelvis was performed using standard technique, scanning from just above the dome of the diaphragm to the symphysis pubis. MQ: CTAP_3 Contrast: IV: 100 ml of Omnipaque 350 CT Radiation dose: Integrated Dose-length product (DLP) for this visit = 285 mGy*cm. CT Dose Reduction Employed: mAs-kVp adjusted based on patient size-age COMPARISON: None. RESULT: Liver: -5-10 fluid attenuation lesions compatible with hepatic cysts, unchanged. Largest in the inferior right lobe measures 8.3 cm. -A few above water attenuation lesions are indeterminant but stable from recent prior, for example 0.9 cm hepatic dome (2:11), 1.6 cm left lateral segment (2:28), 1.1 cm left lateral segment (2:21) left lateral segment 2:25) and ill-defined segment V (2:52). -Subcentimeter low-attenuation lesions are too small to characterize. Biliary: -Moderate intrahepatic biliary duct dilation unchanged -Common bile duct measures 1.1 cm at the hilum with mild tapering towards the ampulla, unchanged. - Gallbladder is unremarkable. Spleen: No mass. No splenomegaly. Pancreas: Main pancreatic duct is top normal caliber measuring 3 mm and can be traced to the ampulla no intrapancreatic mass. Adrenals: No mass. Kidneys: No mass, calculus or hydronephrosis. GI tract: - Similar appearance of the duodenum again with 4 cm segment of circumferential wall thickening extending from D2 to proximal D 3 (3:36). No upstream dilation. -Small bowel loops otherwise normal caliber with no wall thickening. -Normal caliber colon with stool the level of the cecum. -Normal appendix. Lymph nodes: Stable peripherally enhancing centrally low-attenuation peripancreatic lesion approximately 1.5 x 1.0 cm, likely a centrally necrotic lymph node (2:70). Mesentery/Peritoneum / Retroperitoneum: -Hazy soft tissue stranding surrounds the celiac axis and common hepatic artery with extension along the hepatic hilum (2:40). -No ascites Vasculature: - Abdominal aorta and iliac arteries: Atherosclerotic calcifications without aneurysm. - Celiac and SMA: Coarse calcification at the origin of the celiac with narrowing. Origin of the SMA is unremarkable. - Portal venous system (SMV, splenic vein, portal vein and branches): Patent. - Hepatic veins: Patent. Pelvis: Uterus and adnexa unremarkable. Bladder is unremarkable. No pelvic ascites. Bones/Soft Tissues: No significant finding. Lower thorax: A chest CT performed will be reported separately. Localizer images: Unremarkable. DIVISION OF RADIOLOGY Provider, [facility] - 03/05/2025 * * *Final Report* * * DATE OF EXAM: Mar 05 2025 11:34AM [facility] 0530 - CT ABD/PEL W IVCON / PROCEDURE REASON: Intra-abdominal and pelvic swelling, mass and lump, unspecified site * * * * Physician Interpretation * * * * EXAMINATION: CT ABDOMEN AND PELVIS WITH IV CONTRAST CLINICAL HISTORY: Duodenal thickening identified on CT scan in January at outside hospital suspicious for neoplasm. Endoscopy has not yet been performed. TECHNIQUE: CT of the abdomen and pelvis was performed using standard technique, scanning from just above the dome of the diaphragm to the symphysis pubis. MQ: CTAP_3 Contrast: IV: 100 ml of Omnipaque 350 CT Radiation dose: Integrated Dose-length product (DLP) for this visit = 285 mGy*cm. CT Dose Reduction Employed: mAs-kVp adjusted based on patient size-age COMPARISON: None. RESULT: Liver: -5-10 fluid attenuation lesions compatible with hepatic cysts, unchanged. Largest in the inferior right lobe measures 8.3 cm. -A few above water attenuation lesions are indeterminant but stable from recent prior, for example 0.9 cm hepatic dome (2:11), 1.6 cm left lateral segment (2:28), 1.1 cm left lateral segment (2:21) left lateral segment 2:25) and ill-defined segment V (2:52). -Subcentimeter low-attenuation lesions are too small to characterize. Biliary: -Moderate intrahepatic biliary duct dilation unchanged -Common bile duct measures 1.1 cm at the hilum with mild tapering towards the ampulla, unchanged. - Gallbladder is unremarkable. Spleen: No mass. No splenomegaly. Pancreas: Main pancreatic duct is top normal caliber measuring 3 mm and can be traced to the ampulla no intrapancreatic mass. Adrenals: No mass. Kidneys: No mass, calculus or hydronephrosis. GI tract: - Similar appearance of the duodenum again with 4 cm segment of circumferential wall thickening extending from D2 to proximal D 3 (3:36). No upstream dilation. -Small bowel loops otherwise normal caliber with no wall thickening. -Normal caliber colon with stool the level of the cecum. -Normal appendix. Lymph nodes: Stable peripherally enhancing centrally low-attenuation peripancreatic lesion approximately 1.5 x 1.0 cm, likely a centrally necrotic lymph node (2:70). Mesentery/Peritoneum / Retroperitoneum: -Hazy soft tissue stranding surrounds the celiac axis and common hepatic artery with extension along the hepatic hilum (2:40). -No ascites Vasculature: - Abdominal aorta and iliac arteries: Atherosclerotic calcifications without aneurysm. - Celiac and SMA: Coarse calcification at the origin of the celiac with narrowing. Origin of the SMA is unremarkable. - Portal venous system (SMV, splenic vein, portal vein and branches): Patent. - Hepatic veins: Patent. Pelvis: Uterus and adnexa unremarkable. Bladder is unremarkable. No pelvic ascites. Bones/Soft Tissues: No significant finding. Lower thorax: A chest CT performed will be reported separately. Localizer images: Unremarkable. IMPRESSION IMPRESSION: No interval change from 02/19/2025. Stable 4 cm segment of D2/D3 duodenum with circumferential wall thickening suspicious for primary neoplasm. No upstream bowel obstruction. Stable biliary dilation. Hazy soft tissue stranding along hepatic hilum and surrounding the common hepatic artery/celiac. Stable enlarged, likely metastatic and centrally necrotic peripancreatic lymph node. Indeterminate above fluid attenuation hepatic lesions can be further characterized on upcoming liver MR (scheduled for 03/07/2025). Regulatory Affairs Director: [facility] Transcribe Date/Time: Mar 05 2025 11:37A Dictated by : SUPA AGUSTIN MD This examination was interpreted and the report reviewed and electronically signed by: SUPA AGUSTIN MD on Mar 05 2025 11:59AM EST [facility] CT CHEST W IVCONon CT CHEST W IVCON Normal [facility] [facility] CT Chest W contrast Chandni IMPRESSION: No suspicious lung nodules. No thoracic lymph node enlargement. 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 MQ: CTCW_6 Contrast: 100 mL Omnipaque [address] Radiation dose: Integrated Dose-length product (DLP) for this visit = 285 mGy*cm CT Dose Reduction Employed: mAs-kVp adjusted based on patient size-age Comparison: No prior chest CT available. RESULT: Limitations: None. Lines, tubes, and devices: None. Lung parenchyma and airways: Patent central airways. Scattered calcified granulomas. Upper subpleural tiny nodular opacities, likely postinflammatory scarring. Few nonspecific micronodules (e.g., SHAMIR image 90). No suspicious nodules. Pleural space: No pleural effusion or nodular thickening. Lower neck, lymph nodes, and mediastinum: No thoracic lymph nodes enlargement Heart, pericardium, and thoracic vessels: Mild left atrial enlargement. Mild coronary calcification. No central PE. No pericardial effusion. Bones and soft tissues: No destructive bone lesion. Upper abdomen: Reported separately. Localizer images: No additional findings. 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 MQ: CTCW_6 Contrast: 100 mL Omnipaque [address] Radiation dose: Integrated Dose-length product (DLP) for this visit = 285 mGy*cm CT Dose Reduction Employed: mAs-kVp adjusted based on patient size-age Comparison: No prior chest CT available. RESULT: Limitations: None. Lines, tubes, and devices: None. Lung parenchyma and airways: Patent central airways. Scattered calcified granulomas. Upper subpleural tiny nodular opacities, likely postinflammatory scarring. Few nonspecific micronodules (e.g., SHAMIR image 90). No suspicious nodules. Pleural space: No pleural effusion or nodular thickening. Lower neck, lymph nodes, and mediastinum: No thoracic lymph nodes enlargement Heart, pericardium, and thoracic vessels: Mild left atrial enlargement. Mild coronary calcification. No central PE. No pericardial effusion. Bones and soft tissues: No destructive bone lesion. Upper abdomen: Reported separately. Localizer images: No additional findings. IMPRESSION IMPRESSION: No suspicious lung nodules. No thoracic lymph node enlargement. Regulatory Affairs Director: PSCB Transcribe Date/Time: Mar 05 2025 2:00P Dictated by : JASON NEGRON MD This examination was interpreted and the report reviewed and electronically signed by: JASON NEGRON MD on Mar 05 2025 2:44PM EST [facility] Radiology Study observation (narrative) [facility] CT Chest W contrast IVOrdere d By: Ccf Provider on 03-05-2025 [facility] Cancer Ag19-9 SerPl-aCncon 0 6-13-2025 Cancer Ag 19-9 Qn 68.0 [arb'U]/mL High <36.0 [facility] Comment on above: Order Comment: Speci men Type: BLOOD SPECIMENOrdering Facility: [facility] Address: [address] [place] [address] Result Comment: [facility] er antigen 19-9 test is used as an aid in monitoring response to treatment or recurrence in patients with established pancreatic, hepatobiliary, or gastrointestinal malignancies. Clinical correlation is required.The CA 19-9 Antigen test was performed using the NXT-IDel DXI paramagnetic particle chemiluminescent immunoassay method. Results obtained with different assay methods or kits cannot be used interchangeably. Performed By: #### 2 4108-3, 9-6 ####[facility] LABCLIA [id number] [place] [address] [place] Comprehensive metabolic 2000 panelon 03-05-2025 Albumin [Mass/Vol] 3.9 g/dL Normal 3.9-4.9 [facility] Comment on above: Order Comment: Speci men Type: BLOOD SPECIMENOrdering Facility: [facility] Address: [address] [place] [address] Performed By: #### 2 4323-8 ####[facility] LABCLIA [id number] [place] [address] [place] ALP [Catalytic activity/Vol] 1365 U/L High 34-123 [facility] Comment on above: Order Comment: Speci men Type: BLOOD SPECIMENOrdering Facility: [facility] Address: [address] [place] [address] Performed By: #### 2 4323-8 ####[facility] LABCLIA [id number] [place] [address] [place] ALT [Catalytic activity/Vol] 172 U/L High 7-38 [facility] Comment on above: Order Comment: Speci men Type: BLOOD SPECIMENOrdering Facility: [facility] Address: [address] [place] [address] Performed By: #### 2 4323-8 ####[facility] LABCLIA [id number] [address] [place] [address] [place] Anion gap [Moles/Vol] 13 mmol/L Normal 8-15 [facility] Comment on above: Order Comment: Speci men Type: BLOOD SPECIMENOrdering Facility: [facility] Address: [address] [place] [address] Performed By: #### 2 4323-8 ####[facility] LABCLIA [id number] [place] [id number] [place] AST [Catalytic activity/Vol] 168 U/L High 13-35 [facility] Comment on above: Order Comment: Speci men Type: BLOOD SPECIMENOrdering Facility: [facility] Address: [address] [place] [address] Performed By: #### 2 4323-8 ####[facility] LABCLIA [id number] [place] [address] [place] Bilirubin [Mass/Vol] 0.5 mg/dL Normal 0.2-1.3 [facility] Comment on above: Order Comment: Speci men Type: BLOOD SPECIMENOrdering Facility: [facility] Address: [address] [place] [address] Performed By: #### 2 4323-8 ####[facility] LABCLIA [id number] [place] [address] [place] Calcium [Mass/Vol] 9.7 mg/dL Normal 8.5-10.2 [facility] Comment on above: Order Comment: Speci men Type: BLOOD SPECIMENOrdering Facility: [facility] Address: [address] [place] [address] Performed By: #### 2 4323-8 ####[facility] LABCLIA [id number] [address] [address] [place] Chloride [Moles/Vol] 108 mmol/L High 98-107 [facility] Comment on above: Order Comment: Speci men Type: BLOOD SPECIMENOrdering Facility: [facility] Address: [address] [place] [address] Performed By: #### 2 4323-8 ####[facility] LABCLIA [id number] [place] [address] [place] CO2 [Moles/Vol] 22 mmol/L Normal 22-30 [facility] Comment on above: Order Comment: Speci men Type: BLOOD SPECIMENOrdering Facility: [facility] Address: [address] [place] [address] Performed By: #### 2 4323-8 ####[facility] LABIA [id number] [address] STATES OF [facility] Creatinine [Mass/Vol] 0.60 mg/dL Normal 0.58-0.96 [facility] Comment on above: Order Comment: Speci men Type: BLOOD SPECIMENOrdering Facility: [facility] Address: [address] [place] [address] Performed By: #### 2 4323-8 ####[facility] LABIA [id number] [address] Creatinine and Glomerular filtration rate.predicted panel (S/P/Bld) 97 mL/min/1.73m??? Normal >=60 [facility] Comment on above: Order Comment: Speci men Type: BLOOD SPECIMENOrdering Facility: [facility] Address: [address] [place] [address] Result Comment: Lpue mated Glomerular Filtration Rate (eGFR) is calculated [...] actual GFR. Performed By: #### 2 4323-8 ####[facility] LABCLIA [id number] [place] [address] [place] Glucose [Mass/Vol] 132 mg/dL High 74-99 [facility] Comment on above: Order Comment: Speci men Type: BLOOD SPECIMENOrdering Facility: [facility] Address: [address] [place] [address] Result Comment: The [place] Diabetes Association (ADA) provides guidance for cutoff values for fasting glucose and random glucose. The ADA defines fasting as no caloric intake for at least 8 hours. Fasting plasma glucose results between 100 to 125 mg/dL indicate increased risk for diabetes (prediabetes).Fasting plasma glucose results greater than or equal to 126 mg/dL meet the criteria for diagnosis of diabetes. In the absence of unequivocal hyperglycemia, results should be confirmed by repeat testing. In a patient with classic symptoms of hyperglycemia or hyperglycemic crisis, random plasma glucose results greater than or equal to 200 mg/dL meet the criteria for diagnosis of diabetes.Reference: Standards of Medical Care in Diabetes 2016, [place] Diabetes Association. Diabetes Care. 2016.39(Suppl 1). Performed By: #### 2 4323-8 ####[facility] LABCLIA [id number] [place] [address] [place] Potassium [Moles/Vol] 4.3 mmol/L Normal 3.7-5.1 [facility] Comment on above: Order Comment: Speci men Type: BLOOD SPECIMENOrdering Facility: [facility] Address: [address] [place] [address] Performed By: #### 2 4323-8 ####[facility] LABCLIA [id number] [place] [address] [place] Protein [Mass/Vol] 6.9 g/dL Normal 6.3-8.0 [facility] Comment on above: Order Comment: Speci men Type: BLOOD SPECIMENOrdering Facility: [facility] Address: [address] [place], [place] [address] Performed By: #### 2 4323-8 ####[facility] LABCLIA [id number] [place] [address] [place] Sodium [Moles/Vol] 143 mmol/L Normal 136-144 [facility] Comment on above: Order Comment: Speci men Type: BLOOD SPECIMENOrdering Facility: [facility] Address: [address] [place] [address] Performed By: #### 2 4323-8 ####[facility] LABCLIA [id number] [place] [address] [place] Urea nitrogen [Mass/Vol] 9 mg/dL Normal 7-21 [facility] Comment on above: Order Comment: Speci men Type: BLOOD SPECIMENOrdering Facility: [facility] Address: [address] [place] [address] Performed By: #### 2 4323-8 ####[facility] LABIA [id number] [place] [address] [place] Creatinine + eGFR Pnl SerPlB ldon 03-05-2025 Creatinine and Glomerular filtration rate.predicted panel (S/P/Bld) 98 mL/min/1.73m??? Normal >=60 [facility] Comment on above: Order Comment: Speci men Type: BLOOD SPECIMENOrdering Facility: [facility] Address: [address] [place] [address] Result Comment: Lupe mated Glomerular Filtration Rate [...] accurately reflect actual GFR. Performed By: #### 5 0190-8, 2276-4, 80371-4, 1988-01 ####[facility] LABCLIA [id number] [place] [address] [place] Creatinine and Glomerular fi ltration rate.predicted panel (S/P/Bld)on 03-05-2025 Creatinine [Mass/Vol] 0.56 mg/dL Low 0.58-0.96 [facility] Comment on above: Order Comment: Speci men Type: BLOOD SPECIMENOrdering Facility: [facility] Address: [facility] [place] [address] Performed By: #### 5 0190-8, 2276-4, 69774-5, 1989 ####[facility] LABCLIA [id number] [address] DPYD/UGT1A1 GENOTYPING PANEL on 03-05-2025 DPYD/UGT1A1 GENOTYPING PANEL RESULT Normal [facility] Comment on above: Order Comment: Speci men Type: BLOOD SPECIMENOrdering Facility: [facility] Address: [place] [address] Result Comment: [employer] (PGx) DPYD and UGT1A1 GenotypingLaboratory Accession Number: [id number] Genotype: *1/*1DPYD Activity Score: 2DPYD Predicted Phenotype: DPYD Normal YunifannkkjQAF4G3 Genotype: *1/*5HFH1I9 Predicted Phenotype: UGT1A1 Normal MetabolizerInterpretation:Two normal function alleles were observed in the DPYD gene (seevariant details below) resulting in an activity score of 2. Thisactivity score is associated with a DPYD normal metabolizer phenotype.DPYD normal metabolizers are not expected to require (based onpharmacogenomic results alone) selective adjustment of the dose ofmedications metabolized by DPD. Please consult a clinical pharmacistfor more information regarding drug therapy. Questions regardingmolecular testing details should be directed .Two normal function UGT1A1 alleles or one normal function alleleand one increased function UGT1A1 allele or two increased function UTG1A1 alleles were observed in this sample (see variant detailsbelow). This is associated with a UGT1A1 normal metabolizer phenotype.UGT1A1 normal metabolizers are not expected to require (based onpharmacogenomic results alone) selective adjustment of the dose ofmedications metabolized by UGT. Please consult a clinical pharmacistfor more information regarding drug therapy. Questions regardingmolecular testing details should be directed .The DPYD gene encodes dihydropyrimidine dehydrogenase (DPD). Thisenzyme is involved in the metabolism of fluoropyrimidines. The AWU9M7avvu encodes UDP-glucuronosyltransferase (UGT). UGT is involved in themetabolism of certain medications including ones used in oncology. Forclinical correlation, drug-specific guidelines are available toprovide phenotype assignment and therapeutic recommendations based onphenotype. Patients who carry genetic variants associated with alteredmetabolism may be at risk for an adverse or poor response to drugsthat are predominantly metabolized by the associated enzyme (DPD orUGT). For patients with altered DPD and/or UGT activity, alternativepharmacological agents or dosing adjustments may be needed formedications metabolized by this enzyme to avoid an unexpected oradverse response.Please note that this DPYD genotyping test includes variants that maynot have been assayed in a previous test performed elsewhere. If thereis discordance of phenotype results between laboratories, it is likelya function of the different variants assayed in each test. Themethodology section of the report (see below) lists the variantsinterrogated by this test.DPYD Additional Information:In addition to increased risk of 5-fluorouracil toxicity, variants inthe DPYD gene may be associated with DPD deficiency, an autosomalrecessive inborn error of metabolism (OMIM: 243180). DPD deficiencyexhibits a wide range of phenotypic variability, from no symptoms to travis rare severe neurological disorder with onset in infancy orchildhood (prevalence unknown). For the vast majority of affectedindividuals, the first and only symptom is sensitivity to5-fluorouracil and capecitabine. It is possible that individuals withDPD deficiency may be identified by the presence of two no-function DPYD variants (activity score = 0). However, this test is designed asa pharmacogenomic test and is not intended as a diagnostic or carriertest for DPD deficiency. A formal genetics consultation is recommendedfor those with concerns regarding DPD deficiency.Limitations:DNA studies do not provide a definitive genetic or pharmacogenomicrisk in all individuals. This test is designed to detect a specificset of variants (see list below) in the DPYD gene (OMIM 609852) lefWTA4H3 gene (OMIM 625898). This test does not detect all sequencevariants in either gene. Uncommon variants or single nucleotidepolymorphisms may affect binding of primers and probes and may resultin false negative, false positive, or indeterminate results. Theabsence of abnormal variants as analyzed in this test is interpretedas the presence of *1/*1 (wild type/normal) genotype. The phenotypeprovided in the interpretation may be impacted by undetected geneticand/or non-genetic factors such as drug-drug interactions.Methodology:Purified genomic DNA was subjected to polymerase chain reaction-basedamplification. The DPYD (NM_000110.3) and UGT1A1 (NM_000463.3) geneswere interrogated for known, clinically relevant variants. Primerextension products were analyzed using matrix-assisted laserdesorption/ionization massspectrometry, and specific genotypesassigned were then translated to the appropriate star (*) allele (DPYDand UGT1A1) and activity score (DPYD), see lists below. The referencegenome used is GRCh38/hg38.UGT1A1 star alleles: *1, *6, *27, *28, *36, *37, *80, *80+*28,*80+*36, and *80+*37. These alleles are detected using the presence orabsence of the following variants, RefSNP ID: [id number], [id number] (TA repeats), and [id number].DPYD star alleles and targeted variants:RefSNP ID Legacy Total Allele Highest Allele Name Frequency Frequency General Population (Population)No variantdetected *[id number] *2A 0.6% 2.4% (Eur F)[id number] *8 0.01% 0.03% (S )[id number] *10 n/[id number] *12 0.0008% 0.003% (S )[id number] *13 0.03% 0.06% (Eur F)[id number] Y186C 0.2% 2.15% ()[id number] c.2846A>T 0.3% 0.5% (Eur NF)[id number] HapB3 1.4% 2.1 % (Eur NF)[id number] HapB3(c.1236G>A) 1.4% 2.1% (Eur NF)Population frequencies are from Signicast[employer] and may be different inspecific ethnic groups. The allele frequency shown is the total allelefrequency in all populations. The highest allele frequency for asingle population is also noted (Eur F = South [place], Eur NF = non-South Korean, S = South ). Note: [id number] (HapB3)and [id number] (c.1236G>A) are in linkage disequilibrium thus aretypically seen together.References:1) Clinical Pharmacogenetics Implementation Consortium (CPIC):www.CPICpgx.org2) Pharmacogene Variation Consortium (PharmVar): www.PharmVar.org3) Genome Aggregation Database V2.1.1 (gnomAD), accessed September2021, https://gnomad.ScreenHitstitLeonardo [employer].org4) Deepak M, Dontrell EM, Cash JM, et al. PharmacogenomicsKnowledge for Personalized Medicine Clinical Pharmacology andTherapeutics (2012) 92(4): 414-417.5) Noah U, Rishi LM, Jerome SM, et al. Clinical PharmacogeneticsImplementation Consortium (CPIC) Guideline for DihydropyrimidineDehydrogenase Genotype and Fluoropyrimidine Dosin Update. ClinPharmacol Ther. 2018;103(2):210-216.6) Medlineplus, [employer] Library of Medicine 2020. Dihydropyrimidinedehydrogenase deficiency, accessed 11 April 2021,https://medlineplus.gov/genetics/condition/dihydropyrimidine -dehydrogenase-deficiency/#resources7) Henry N, Carl GONZALEZ, Debra RODM, jocelin Davis ABP. Purine andPyrimidine Metabolism: Pyrimidine Metabolism: DihydropyrimidineDehydrogenase. Chidi's Principles and Practice of MedicalGenetics and Genomics: Metabolic Disorders, Seventh Edition. Edited byDanielle Davis al, Elsevier. 2020. Sections 6.3.4 - 6.3.4.4https://jkj-osdvkqgrcba-pjd.ccmain.californianet.org/#!/content/ book/3-s2.0-J1565131742363060529?scrollTo=%18je93165190) Paloma RS, Chaparrita MH, Claire CE, et al. Clinical PharmacogeneticsImplementation Consortium (CPIC) Guideline for UGT1A1 and AtazanavirPrescribing. Clinical Pharmacology and Therapeutics (2016) Apr;99(4):363-9.9) Lauryn Smith. Overview of Glibert's syndrome. Drug TherBull. 2019 Oct 57(2):27-30.10) [facility] 2020, Gilbert Syndrome, accessed 11 April 2021,[email or web address]/[email or web address]-kbpxbjv s-syndromeDisclaimer:This test was developed and its performance characteristics determinedby [facility]'s Pathology and Laboratory Medicine Department. Ithas not been cleared or approved by the FDA. [facility] is regulated under CLIAas certified to perform high-complexity testing. This test is used forclinical purposes. It should not be regarded as investigational or forresearch.Test performed at [facility], [address] [place] [address]. CLIA Number: [id number] performed by Ruben Osman, PhD, FACMG Performed By: #### D UPNL1 ####[facility] LIMSCLIA [id number] [place] [address] [place] ECG COMPLETEon 03-05-2025 ECG COMPLETE Normal [facility] Ferritin SerPl-mCncon 2024 Ferritin [Mass/Vol] 17.8 ng/mL Normal 14.7-205.1 [facility] Comment on above: Order Comment: Speci men Type: BLOOD SPECIMENOrdering Facility: [facility] Address: [address] [place] [address] Performed By: #### 5 0190-8, 2276-4, 89252-6, 1987- ####[facility] LABCLIA [id number] [place] [id number] [place] HISTORY PHYSICALon HISTORY PHYSICAL Normal [facility] HbA1c (Bld)on 03-05-2025 Average glucose Estimated from glycated hemoglobin (Bld) [Mass/Vol] 103 mg/dL Normal [facility] Comment on above: Order Comment: Speci men Type: BLOOD SPECIMENOrdering Facility: [facility] Address: [address] [place] [id number] Result Comment: eAG: (Estimated average glucose) is a calculated value from HgbA1c and is membership sales representative of the average blood glucose level in the last 2-3 month period. Performed By: #### 5 5454-3 ####[facility] LABIA [id number] [address] [address] [place] HbA1c (Bld) [Mass fraction] 5.2 % Normal 4.3-5.6 [facility] Comment on above: Order Comment: Speci men Type: BLOOD SPECIMENOrdering Facility: [facility] Address: [address] [place] [address] Result Comment: Amer [place] Diabetes Association guidelines indicate that patients with HgbA1c in the range 5.7-6.4% are at increased risk for development of diabetes, and intervention by lifestyle modification may be beneficial. HgbA1c greater or equal to 6.5% is considered diagnostic of diabetes. Performed By: #### 5 5454-3 ####[facility] LABIA [id number] [address] [address] [place] Iron and Iron binding capaci ty panelon 03-05-2025 Iron [Mass/Vol] 17 ug/dL Low 41-186 [facility] Comment on above: Order Comment: Speci men Type: BLOOD SPECIMENOrdering Facility: [facility] Address: [address] [place] [address] Performed By: #### 5 0190-8, 2276-4, 86188-4, 1988-01 ####[facility] LABIA [id number] [address] [address] [place] Iron binding capacity [Mass/Vol] 423 ug/dL High 232-386 [facility] Comment on above: Order Comment: Speci men Type: BLOOD SPECIMENOrdering Facility: [facility] Address: [address] [place] [address] Performed By: #### 5 0190-8, 2276-4, 13360-0, 1988-01 ####[facility] LABCLIA [id number] [place] [address] [place] Iron/TIBC [Molar ratio] 4.0 % Low 15.0-57.0 [facility] Comment on above: Order Comment: Speci men Type: BLOOD SPECIMENOrdering Facility: [facility] Address: [address] [place] [address] Performed By: #### 5 0190-8, 2276-4, 22506-9, 1987- ####[facility] LABCLIA [id number] [place] [address] [place] PT panel Coag (PPP)on 2024 INR Coag (PPP) [Relative time] 1.0 {INR} Normal 0.9-1.3 [facility] Comment on above: Order Comment: Speci men Type: BLOOD SPECIMENOrdering Facility: [facility] Address: [address] [place] [address] Result Comment: Wendie min K Antagonist (VKA) Therapeutic Range: INR 2 to 3 (Target INR of 2.5)Note: For patients treated with VKA drugs, such as warfarin, the [place] [employer] 2012 Guideline recommends a therapeutic INR range of 2 to 3 (target INR of 2.5). This recommendation includes high-risk patients with antiphospholipid syndrome with previous arterial or venous thromboembolism, current-generation mechanical or bioprosthetic aortic heart valve replacement.Note: Patients with mechanical aortic valve replacement and additional risk factors for thromboembolic events (atrial fibrillation, previous thromboembolism, LV dysfunction, hypercoagulable conditions) or an older generation mechanical AVR (i.e., ball in-Cage) or any mechanical MVR should have a INR therapeutic range of 2.5 to 3.5 (target INR of 3).Marbin GH, et al. Chest 2012, 141:7S-47SNishimura RA, et al. [facility] 2017, 70: 252-289 Performed By: #### 3 4528-0 ####[facility] LABCLIA [id number] [place] [id number] [place] PT Coag (PPP) [Time] 10.9 s Normal 9.7-13.0 [facility] Comment on above: Order Comment: Speci men Type: BLOOD SPECIMENOrdering Facility: [facility] Address: [address] [place] [address] Performed By: #### 3 4528-0 ####[facility] LABCLIA [id number] [address] [place] Prealb SerPl-mCncon 03-05-20 25 Prealbumin [Mass/Vol] 13 mg/dL Low 17-36 [facility] Comment on above: Order Comment: Speci men Type: BLOOD SPECIMENOrdering Facility: [facility] Address: [address] [place] [address] Performed By: #### 1 4338-8 ####[facility] LABCLIA [id number] [address] [place] TYPE AND SCREEN,30 DAYon ABO B Normal [facility] Comment on above: Order Comment: Speci men Type: BLOOD SPECIMENOrdering Facility: [facility] Address: [address] [place] [address] Performed By: #### T SCR30 ####[facility] B[facility] BANKCLIA [id number] [place] [address] [place] Rh Nom (Bld) Positive Normal [facility] Comment on above: Order Comment: Speci men Type: BLOOD SPECIMENOrdering Facility: [facility] Address: [address] [place] [address] Performed By: #### T SCR30 ####[facility] BLOOD [employer]ANKCLIA [id number] [place] [address] [place]-CT LIVER (ABD c and s) - OVERREADon 02-26-2025 IMPRESSION: Periampullary masslike thickening involving the D2/D3 duodenum, highly concerning for malignancy. Mild biliary duct dilation and mild pancreatic duct dilation in the setting of divisum morphology. Necrotic lymph node adjacent to the periampullary mass, likely metastatic. Four hepatic lesions are not definitely characterized by CT technique, and could represent metastases or benign etiology (such as typical/atypical hemangiomas). Comparison outside imaging (if available) would be of benefit to assess stability and/or a contrast-enhanced liver MRI can be obtained for further characterization. Regulatory Affairs Director: DEMETRIUS Transcribe Date/Time: Feb 26 2025 12:54P Dictated by : ROHIT HUMPHREYS MD This examination was interpreted and the report reviewed and electronically signed by: ROHIT HUMPHREYS MD on Feb 26 2025 1:43PM [facility] DIVISION OF RADIOLOGY * * *Final Report* * * DATE OF EXAM: Feb 19 2025 12:00AM OUT 0002 - CT OUTSIDE CD DICOM IMPORT -NBNR / PROCEDURE REASON: Tumor Board Discussion * * * * Physician Interpretation * * * * EXAMINATION: OUTSIDE IMAGING INTERPRETATION Indication for the Request / Reason for Overread: Tumor Board Discussion Service Requesting Consult: Hepatobiliary Surgery Any specific Issue(s) to be discussed: Tumor Board discussion. Images Reviewed: CT without and with contrast of the Abdomen performed on 02/19/2025 12:00 AM Overread Date: 02/26/2025 12:54 PM CLINICAL HISTORY: Duodenal mass. COMPARISON: None. RESULT: Liver: Normal morphology. Four hepatic lesions with indeterminate imaging features: * 1.3 x 1.2 cm right hepatic dome/segment VII hypoattenuating lesion with peripheral irregular enhancement and perilesional arterial phase hyperenhancement (4:13, 5:14). * 1.8 x 1.1 cm segment II/III hypoattenuating lesion with progressive internal enhancement on dynamic postcontrast imaging (4:40, 6:40). * 1.2 x 1.0 cm segment V hypoattenuating lesion with progressive internal enhancement on dynamic postcontrast imaging (4:62, 6:62) * 1.3 x 1.1 cm segment Fuentes hypoattenuating lesion with peripheral nodular enhancement that progressively increases on dynamic postcontrast imaging (4:30, 6:30) Multiple bilobar hepatic cysts, the largest up to 8.8 cm in segment V/ (4:61). Additional subcentimeter low-attenuation lesions too small to definitively characterize, although favored to represent additional cysts. Biliary: Mild intrahepatic and extrahepatic biliary duct dilation. The CBD measures up to 1.3 cm (4:60) with some mild tapering towards the ampulla. Gallbladder is unremarkable. Spleen: No mass. No splenomegaly. Pancreas: Pancreatic divisum with prominent main pancreatic duct up to 0.5 cm in caliber (4:70). No mass. Adrenals: No mass. Kidneys: No mass, calculus or hydronephrosis. GI tract: Irregular masslike thickening involving the periampullary duodenal second/third segments (603:40, 4:84). The mass abuts the anterior aspect of the right kidney midpole without visualized invasion. No bowel dilation. Lymph nodes: 1.9 x 1.1 cm necrotic lymph node interposed between the periampullary mass and pancreatic uncinate process (4:84, 603:36). Mesentery/Peritoneum: No ascites or mass. Retroperitoneum: No mass. Vasculature: - Abdominal aorta: Mild atherosclerotic calcifications without aneurysm. - Celiac and SMA: Patent without stenosis. - Portal venous system (SMV, splenic vein, portal vein and branches): - Hepatic veins: Patent. Bones/Soft Tissues: No suspicious osseous lesion. Lower thorax: Right lower lung calcified granuloma. No acute finding. Localizer images: No additional findings. DIVISION OF RADIOLOGY Provider, [facility] - 02/26/2025 * * *Final Report* * * DATE OF EXAM: Feb 19 2025 12:00AM OUT 0002 - CT OUTSIDE CD DICOM IMPORT -NBNR / PROCEDURE REASON: Tumor Board Discussion * * * * Physician Interpretation * * * * EXAMINATION: OUTSIDE IMAGING INTERPRETATION Indication for the Request / Reason for Overread: Tumor Board Discussion Service Requesting Consult: Hepatobiliary Surgery Any specific Issue(s) to be discussed: Tumor Board discussion. Images Reviewed: CT without and with contrast of the Abdomen performed on 02/19/2025 12:00 AM Overread Date: 02/26/2025 12:54 PM CLINICAL HISTORY: Duodenal mass. COMPARISON: None. RESULT: Liver: Normal morphology. Four hepatic lesions with indeterminate imaging features: * 1.3 x 1.2 cm right hepatic dome/segment VII hypoattenuating lesion with peripheral irregular enhancement and perilesional arterial phase hyperenhancement (4:13, 5:14). * 1.8 x 1.1 cm segment II/III hypoattenuating lesion with progressive internal enhancement on dynamic postcontrast imaging (4:40, 6:40). * 1.2 x 1.0 cm segment V hypoattenuating lesion with progressive internal enhancement on dynamic postcontrast imaging (4:62, 6:62) * 1.3 x 1.1 cm segment Fuentes hypoattenuating lesion with peripheral nodular enhancement that progressively increases on dynamic postcontrast imaging (4:30, 6:30) Multiple bilobar hepatic cysts, the largest up to 8.8 cm in segment V/ (4:61). Additional subcentimeter low-attenuation lesions too small to definitively characterize, although favored to represent additional cysts. Biliary: Mild intrahepatic and extrahepatic biliary duct dilation. The CBD measures up to 1.3 cm (4:60) with some mild tapering towards the ampulla. Gallbladder is unremarkable. Spleen: No mass. No splenomegaly. Pancreas: Pancreatic divisum with prominent main pancreatic duct up to 0.5 cm in caliber (4:70). No mass. Adrenals: No mass. Kidneys: No mass, calculus or hydronephrosis. GI tract: Irregular masslike thickening involving the periampullary duodenal second/third segments (603:40, 4:84). The mass abuts the anterior aspect of the right kidney midpole without visualized invasion. No bowel dilation. Lymph nodes: 1.9 x 1.1 cm necrotic lymph node interposed between the periampullary mass and pancreatic uncinate process (4:84, 603:36). Mesentery/Peritoneum: No ascites or mass. Retroperitoneum: No mass. Vasculature: - Abdominal aorta: Mild atherosclerotic calcifications without aneurysm. - Celiac and SMA: Patent without stenosis. - Portal venous system (SMV, splenic vein, portal vein and branches): - Hepatic veins: Patent. Bones/Soft Tissues: No suspicious osseous lesion. Lower thorax: Right lower lung calcified granuloma. No acute finding. Localizer images: No additional findings. IMPRESSION IMPRESSION: Periampullary masslike thickening involving the D2/D3 duodenum, highly concerning for malignancy. Mild biliary duct dilation and mild pancreatic duct dilation in the setting of divisum morphology. Necrotic lymph node adjacent to the periampullary mass, likely metastatic. Four hepatic lesions are not definitely characterized by CT technique, and could represent metastases or benign etiology (such as typical/atypical hemangiomas). Comparison outside imaging (if available) would be of benefit to assess stability and/or a contrast-enhanced liver MRI can be obtained for further characterization. Regulatory Affairs Director: DEMETRIUS Transcribe Date/Time: Feb 26 2025 12:54P Dictated by : ROHIT HUMPHREYS MD This examination was interpreted and the report reviewed and electronically signed by: ROHIT HUMPHREYS MD on Feb 26 2025 1:43PM EST [facility] CT-CT LIVER (ABD c and s) - OVERREADOrdered By: [facility] Provider on 02-26-2025 [facility] CT-CT LIVER (ABD c and s) - OVERREADon 02-25-2025 Radiology Study observation (narrative) [facility] 02-24-2025 [facility] Normal [facility] XR ANKLE RT MIN 3 VIEWSon XR [...] no radiopaque foreign body. Electronically authenticated by: CHANDLER HOWIE Date: 2022-05-27 17:00 Normal [facility] FREE T4on 05-26-2022 Free T4 [Mass/Vol] 0.91 ng/dL Normal 0.76-1.46 [facility] Comment on above: Performed By: #### F T4 #### [facility] [address] [place] [address] Dr. Magalys Byrnes LIPID PROFILEon 05-26-2022 CHOL-HDL RATIO NORM SEE BELOW Normal [facility] Comment on above: Result Comment: 3.3 - 4.4 LOW RISK 4.4 - 7.1 AVERAGE RISK 7.1 - 11.0 MODERATE RISK >11.0 HIGH RISK Performed By: #### L IPID, CMP, TSH #### [facility] [address] [address] [address] Magalys Byrnes Cholesterol [Mass/Vol] 219 mg/dL Critically high <=200 [facility] Comment on above: Performed By: #### L IPID, CMP, TSH #### [facility] [address] [address] [address] Magalys Byrnes Cholesterol in HDL [Mass/Vol] 71 mg/dL Critically high 40-60 [facility] Comment on above: Performed By: #### L IPID, CMP, TSH #### [facility] [address] [address] [address] Magalys Byrnes Cholesterol in LDL [Mass/Vol] 118.4 mg/dL Normal [facility] Comment on above: Performed By: #### L IPID, CMP, TSH #### [facility] [address] [address] [address] Magalys Byrnes Cholesterol.total/Ch olesterol in HDL [Mass ratio] 3.1 {ratio} Normal [facility] Comment on above: Performed By: #### L IPID, CMP, TSH #### [facility] [address] [address] [address] Magalys Byrnes HDL NORMAL > or = 60 mg/dl - LO W CARDIOVASCULAR RISK <40 mg/dl - HIGH CARDIOVASCULAR RISK Normal [facility] Comment on above: Performed By: #### L IPID, CMP, TSH #### [facility] [address] [address] [address] Magalys Byrnes LDL CALC NORMAL SEE BELOW Normal [facility] Comment on above: Result Comment: <100 mg/dl OPTIMAL 100 - 129 mg/dl NEAR OR ABOVE OPTIMAL 130 - 159 mg/dl BORDERLINE HIGH 160 - 189 mg/dl HIGH >190 mg/dl VERY HIGH Performed By: #### L IPID, CMP, TSH #### [facility] [address] [address] [address] Magalys Byrnes Triglyceride [Mass/Vol] 148 mg/dL Normal <=150 [facility] Comment on above: Performed By: #### L IPID, CMP, TSH #### [facility] [address] [address] [address] Magalys Byrnes VLDL CALC 29.6 mg/dL Normal [facility] Comment on above: Performed By: #### L IPID, CMP, TSH #### [facility] [address] [address] [address] Magalys Byrnes PROF 14(COMP METB)on 022 Albumin [Mass/Vol] 4.2 g/dL Normal 3.4-5.0 [facility] Comment on above: Performed By: #### L IPID, CMP, TSH #### [facility] [address] [address] [address] Magalys Byrnes Albumin/Globulin [Mass ratio] 1.3 {ratio} Normal [facility] Comment on above: Performed By: #### L IPID, CMP, TSH #### [facility] [address] [place] [address] Dr. Magalys Byrnes ALP [Catalytic activity/Vol] 72 U/L Normal 46-116 [facility] Comment on above: Performed By: #### L IPID, CMP, TSH #### [facility] [address] [address] [address] Magalys Byrnes ALT [Catalytic activity/Vol] 22 U/L Normal 14-59 [facility] Comment on above: Performed By: #### L IPID, CMP, TSH #### [facility] [address] [address] [address] Magalys Byrnes Anion gap [Moles/Vol] 10.7 mmol/L Normal [facility] Comment on above: Performed By: #### L IPID, CMP, TSH #### [facility] [address] [address] [address] Magalys Byrnes AST [Catalytic activity/Vol] 13 U/L Critically low 15-37 [facility] Comment on above: Performed By: #### L IPID, CMP, TSH #### [facility] [address] [address] [address] Magalys Byrnes Bilirubin [Mass/Vol] 0.4 mg/dL Normal 0.2-1.0 [facility] Comment on above: Performed By: #### L IPID, CMP, TSH #### [facility] [address] [address] [address] Magalys Byrnes Calcium [Mass/Vol] 9.2 mg/dL Normal 8.5-10.1 [facility] Comment on above: Performed By: #### L IPID, CMP, TSH #### [facility] [address] [address] [address] Magalys Byrnes Chloride [Moles/Vol] 105 mmol/L Normal 98-107 [facility] Comment on above: Performed By: #### L IPID, CMP, TSH #### [facility] [address] [address] [address] Magalys Byrnes CO2 [Moles/Vol] 30.2 mmol/L Normal 21.0-32.0 [facility] Comment on above: Performed By: #### L IPID, CMP, TSH #### [facility] [address] [place] [address] Dr. Magalys Byrnes Creatinine [Mass/Vol] 0.73 mg/dL Normal 0.55-1.02 [facility] Comment on above: Performed By: #### L IPID, CMP, TSH #### [facility] [address] [place] [address] Dr. Magalys Byrnes EGFR-AF TAIWANESE >60 Normal >=60 [facility] Comment on above: Performed By: #### L IPID, CMP, TSH #### [facility] [address] [place] [address] Dr. Magalys Byrnes EGFR-NON AF TAIWANESE >60 Normal >=60 [facility] Comment on above: Performed By: #### L IPID, CMP, TSH #### [facility] [address] [address] [address] Magalys Byrnes Globulin (S) [Mass/Vol] 3.3 g/dL Normal [facility] Comment on above: Performed By: #### L IPID, CMP, TSH #### [facility] [address] [place] [address] Dr. Magalys Byrnes Glucose [Mass/Vol] 103 mg/dL Normal 74-106 [facility] Comment on above: Performed By: #### L IPID CMP, TSH #### [facility] [address] [place] [address] Dr. Magalys Byrnes Potassium [Moles/Vol] 3.9 mmol/L Normal 3.5-5.1 [facility] Comment on above: Performed By: #### L IPID CMP, TSH #### [facility] [address] [place] [address] Dr. Magalys Byrnes Protein [Mass/Vol] 7.5 g/dL Normal 6.4-8.2 [facility] Comment on above: Performed By: #### L IPID CMP, TSH #### [facility] [address] [place] [address] Dr. Magalys Byrnes Sodium [Moles/Vol] 142 mmol/L Normal 136-145 [facility] Comment on above: Performed By: #### L IPID CMP, TSH #### [facility] [address] [place] [address] Dr. Magalys Byrnes Urea nitrogen [Mass/Vol] 12.0 mg/dL Normal 7.0-18.0 [facility] Comment on above: Performed By: #### L IPID CMP, TSH #### [facility] [address] [place] [address] Dr. Magalys Byrnes Urea nitrogen/Creatinine [Mass ratio] 16.4 mg/mg Normal [facility] Comment on above: Performed By: #### L IPID, CMP, TSH #### [facility] [address] [place] [address] Dr. Magalys Byrnes TSHon 05-26-2022 TSH 1.007 uIU/mL Normal 0.358-3.74 0 [facility] Comment on above: Performed By: #### L IPID, CMP, TSH #### [facility] [address] [place] [address] Dr. Magalys Byrnes CULTURE URINEon 03-21-2022 CULTURE URINE Isolate 1 Escherichia coli >100,000 cfu/mL of ORGANISM 1 Escherichia coli ANTIBIOTIC M.I.C RX STATUS Ampicillin >=32 R F Ampicillin/Sulbactam 4 S F Piperacillin/Tazobactam <=4 S F Cefazolin <=4 S F Ceftazidime <=1 S F Ceftriaxone <=1 S F Ertapenem <=0.5 S F Imipenem <=0.25 S F Amikacin <=2 S F Gentamicin <=1 S F Tobramycin <=1 S F Ciprofloxacin <=0.25 S F Levofloxacin <=0.12 S F Nitrofurantoin <=16 S F Trimethoprim/Sulfamethoxazole <=20 S F Normal [facility] Comment on above: Performed By: #### U RCX #### [facility] [address] [place] [address] Dr. Magalys Byrnes MG MAMM SCREEN 3D ALISHA CADon 03-13-2022 MG MAMM SCREEN 3D ALISHA CAD Patient: SILVANA GÓMEZ Exam Date: 03/13/2022 : 1955 Gender:F Ordering : GIANA CARPENTER Admission #: [id number] Family : DR JAMIE RAMIREZ M.D. Order #: [id number] CLICK HERE TO VIEW EXAM RADIOLOGY REPORT PROCEDURE: MAMMOGRAM SCREENING 3D BILATERAL CAD COMPARISON: MG MAMM SCREEN ALISHA W CAD, 02/26/2020. MG MAMM SCREEN 3D ALSIHA CAD, 03/02/2021. INDICATIONS: Screening mammography Calculator Name NCI Breast Cancer Risk Assessment Tool 5 Year Breast Cancer Risk n/a% Lifetime Breast Cancer Risk n/a% Personal Breast Cancer Yes, Right intraductal breast cancer age 55 Personal Ovarian Cancer No Treatments Lumpectomy, Tamoxifen, Radiation Family Cancers None LOCATION: [facility] BREAST COMPOSITION: Heterogeneously dense,which may obscure small [...] Page MD on 03/13/2022 at 13:44 Normal [facility] COVID-19 Antigenon 1 COVID-19 Antigen Healthcare Worker?: [...] its performance Kaylah Disclaimer characteristic determined by [employer] and Kaylah Disclaimer validated at [facility]. This Kaylah Disclaimer test has not been [...] Emergency Use Authorization for Coronavirus Kaylah Disclaimer iseas during the Public Health Emergency) Kaylah Disclaimer [...] is terminated or revoked sooner. PERFORMED BY: [place] [id number] PATHOLOGIST [employer]ER [employer] MACHINE SET UP OPERATOR TONO JONES M.D. Normal [facility] Comment on above: Performed By: #### C OVID-19 KAYLAH, SOFIANEG #### [address] [address] [facility] Kaylah Ag Negativeon 05-26-20 21 Kaylah Ag Negative Negative Normal Negative [facility] Comment on above: Result Comment: This is a duplicate Kaylah SARS Antigen (GROVER) result to be used for statistical tracking purpose only. PERFORMED BY: [place] [id number] PATHOLOGIST P[employer]ER GOODS MACHINE SET UP OPERATOR TONO JONES M.D. Performed By: #### C OVID-19 KAYLAH, SOFIANEG #### [address] [address] [facility] Vital Signs Date Time Vital Sign Value Performing Clinician Facility 06-03-2025 13:50-0400 Body temperature 98.4 [degF] Chair Ubaldo Work Phone: [facility] 06-03-2025 13:50-0400 Diastolic blood pressure 69 mm[Hg] Chair Ubaldo Work Phone: [facility] 06-03-2025 13:50-0400 Heart rate 72 /min Chair Ubaldo Work Phone: [facility] 06-03-2025 13:50-0400 Respiratory rate 16 /min Chair Ubaldo Work Phone: [facility] 06-03-2025 13:50-0400 SaO2% (BldA) [Mass fraction] 99 % Chair Ubaldo Work Phone: [facility] 06-03-2025 13:50-0400 Systolic blood pressure 106 mm[Hg] Chair Ubaldo Work Phone: [facility] 06-01-2025 11:26-0400 Body mass index (BMI) [Ratio] 18.76 kg/m2 Chair 3 Work Phone: [facility] 06-01-2025 11:26-0400 Body weight 50.2 kg Chair 3 Work Phone: [facility] 06-01-2025 11:24-0400 Body temperature 97.7 [degF] Chair 3 Work Phone: [facility] 06-01-2025 11:24-0400 Diastolic blood pressure 69 mm[Hg] Chair 3 Work Phone: [facility] 06-01-2025 11:24-0400 Heart rate 63 /min Chair 3 Work Phone: [facility] 06-01-2025 11:24-0400 Respiratory rate 18 /min Chair 3 Work Phone: [facility] 06-01-2025 11:24-0400 SaO2% (BldA) [Mass fraction] 100 % Chair 3 Work Phone: [facility] 06-01-2025 11:24-0400 Systolic blood pressure 118 mm[Hg] Chair 3 Work Phone: [facility] 05-20-2025 13:21-0400 Body temperature 97.9 [degF] Chair 3 Work Phone: [facility] 05-20-2025 13:21-0400 Diastolic blood pressure 65 mm[Hg] Chair 3 Work Phone: [facility] 05-20-2025 13:21-0400 Heart rate 67 /min Chair 3 Work Phone: [facility] 05-20-2025 13:21-0400 Respiratory rate 18 /min Chair 3 Work Phone: [facility] 05-20-2025 13:21-0400 SaO2% (BldA) [Mass fraction] 100 % Chair 3 Work Phone: [facility] 05-20-2025 13:21-0400 Systolic blood pressure 118 mm[Hg] Chair 3 Work Phone: [facility] 05-18-2025 09:40-0400 Body mass index (BMI) [Ratio] 18.83 kg/m2 Demetrius Pinkava PA-C Work Phone: [facility] 05-18-2025 09:40-0400 Body temperature 97.7 [degF] Demetrius Pinkava PA-C Work Phone: [facility] 05-18-2025 09:40-0400 Body weight 50.4 kg Demetrius Pinkava PA-C Work Phone: [facility] 05-18-2025 09:40-0400 Diastolic blood pressure 64 mm[Hg] Demetrius Pinkava PA-C Work Phone: [facility] 05-18-2025 09:40-0400 Heart rate 62 /min Demetrius Pinkava PA-C Work Phone: [facility] 05-18-2025 09:40-0400 Respiratory rate 16 /min Demetrius Pinkava PA-C Work Phone: [facility] 05-18-2025 09:40-0400 SaO2% (BldA) [Mass fraction] 100 % Demetrius Danielava PA-C Work Phone: [facility] 05-18-2025 09:40-0400 Systolic blood pressure 97 mm[Hg] Demetrius Sanchezava PA-C Work Phone: [facility] 05-07-2025 12:00-0400 Body mass index (BMI) [Ratio] 19.47 kg/m2 Nancy Crowell DYE REEL OPERATOR HELPER.DRAMA CRITIC Work Phone: [facility] 05-07-2025 12:00-0400 Body temperature 97.2 [degF] Nancy Crowell DYE REEL OPERATOR HELPER.DRAMA CRITIC Work Phone: [facility] 05-07-2025 12:00-0400 Body weight 52.1 kg Nancy Hills DYE REEL OPERATOR HELPER.DRAMA CRITIC Work Phone: [facility] 05-07-2025 12:00-0400 Diastolic blood pressure 60 mm[Hg] Nancy Crowell DYE REEL OPERATOR HELPER.DRAMA CRITIC Work Phone: [facility] 05-07-2025 12:00-0400 Heart rate 72 /min Nancy Crowell DYE REEL OPERATOR HELPER.DRAMA CRITIC Work Phone: [facility] 05-07-2025 12:00-0400 Respiratory rate 20 /min Nancy Crowell DYE REEL OPERATOR HELPER.DRAMA CRITIC Work Phone: [facility] 05-07-2025 12:00-0400 SaO2% (BldA) [Mass fraction] 98 % Nancy Crowell DYE REEL OPERATOR HELPER.DRAMA CRITIC Work Phone: [facility] 05-07-2025 12:00-0400 Systolic blood pressure 110 mm[Hg] Nancy Crowell DYE REEL OPERATOR HELPER.DRAMA CRITIC Work Phone: [facility] 05-06-2025 15:00-0400 Body temperature 97.9 [degF] Chair 3 Work Phone: [facility] 05-06-2025 15:00-0400 Diastolic blood pressure 57 mm[Hg] Chair 3 Work Phone: [facility] 05-06-2025 15:00-0400 Heart rate 69 /min Chair 3 Work Phone: [facility] 05-06-2025 15:00-0400 Respiratory rate 18 /min Chair 3 Work Phone: [facility] 05-06-2025 15:00-0400 SaO2% (BldA) [Mass fraction] 100 % Chair 3 Work Phone: [facility] 05-06-2025 15:00-0400 Systolic blood pressure 105 mm[Hg] Chair 3 Work Phone: [facility] 05-04-2025 11:26-0400 Body height 163.6 cm Chair 3 Work Phone: [facility] 05-04-2025 11:26-0400 Body mass index (BMI) [Ratio] 19.65 kg/m2 Chair 3 Work Phone: [facility] [facility] 05-04-2025 11:26-0400 Body weight 52.6 kg Chair 3 Work Phone: [facility] 05-04-2025 09:56-0400 Body mass index (BMI) [Ratio] 19.21 kg/m2 Ben Medellin MD Work Phone: [facility] 05-04-2025 09:56-0400 Body temperature 97.5 [degF] Ben Medellin MD Work Phone: [facility] 05-04-2025 09:56-0400 Body weight 52.3 kg Ben Medellin MD Work Phone: [facility] 05-04-2025 09:56-0400 Diastolic blood pressure 61 mm[Hg] Ben Medellin MD Work Phone: [facility] 05-04-2025 09:56-0400 Heart rate 70 /min Ben Medellin MD Work Phone: [facility] 05-04-2025 09:56-0400 Respiratory rate 16 /min Ben Medellin MD Work Phone: [facility] 05-04-2025 09:56-0400 SaO2% (BldA) [Mass fraction] 100 % Ben Medellin MD Work Phone: [facility] 05-04-2025 09:56-0400 Systolic blood pressure 103 mm[Hg] Ben Medellin MD Work Phone: [facility] 04-09-2025 08:52-0400 Body height 165 cm Earl Cardenas MD Work Phone: [facility] 04-09-2025 08:52-0400 Body mass index (BMI) [Ratio] 19.36 kg/m2 Earl Cardenas MD Work Phone: [facility] 04-09-2025 08:52-0400 Body temperature 97.5 [degF] Earl Cardenas MD Work Phone: [facility] 04-09-2025 08:52-0400 Body weight 52.7 kg Earl Cardenas MD Work Phone: [facility] 04-09-2025 08:52-0400 Diastolic blood pressure 62 mm[Hg] Earl Cardenas MD Work Phone: [facility] 04-09-2025 08:52-0400 Heart rate 76 /min Earl Cardenas MD Work Phone: [facility] 04-09-2025 08:52-0400 Respiratory rate 16 /min Earl Cardenas MD Work Phone: [facility] 04-09-2025 08:52-0400 SaO2% (BldA) [Mass fraction] 99 % Earl Cardenas MD Work Phone: [facility] 04-09-2025 08:52-0400 Systolic blood pressure 111 mm[Hg] Earl Cardenas MD Work Phone: [facility] 03-17-2025 13:20-0400 SaO2% (BldA) [Mass fraction] 100 % JAMIE RAMIREZ [facility] Comment on above: Order Comment: Specimen Type: ARTERIAL B LOOD SPECIMENOrdering Facility: [facility] Address: [address] [place] [address] Performed By: #### A LLMG ####[facility] LABCLIA [id number] [place] [id number] [facility] 03-17-2025 12:08-0400 SaO2% (BldA) [Mass fraction] 100 % JAMIE RAMIREZ [facility] Comment on above: Order Comment: Specimen Type: ARTERIAL B LOOD SPECIMENOrdering Facility: [facility] Address: [address] [place] [address] Performed By: #### A LLMG ####[facility] LABIA [id number] [place] [id number] [place] 03-17-2025 10:59-0400 SaO2% (BldA) [Mass fraction] 100 % JAMIE RAMIREZ [facility] Comment on above: Order Comment: Specimen Type: ARTERIAL B LOOD SPECIMENOrdering Facility: [facility] Address: [address] [place] [address] Performed By: #### A LLMG ####[facility] LABIA [id number] [place] [id number] [facility] [place] 03-17-2025 09:54-0400 SaO2% (BldA) [Mass fraction] 100 % JAMIE RAMIREZ [facility] Comment on above: Order Comment: Specimen Type: ARTERIAL B LOOD SPECIMENOrdering Facility: [facility] Address: [address] [place], [place] [address] Performed By: #### A LLMG ####[facility] LABIA [id number] [place] [id number] [place] 03-17-2025 08:42-0400 SaO2% (BldA) [Mass fraction] 100 % JAMIE RAMIREZ [facility] Comment on above: Order Comment: Specimen Type: ARTERIAL B LOOD SPECIMENOrdering Facility: [facility] Address: [facility] [place] [address] Performed By: #### A LLMG ####[facility] LABCLIA [id number] [place] [address] [place] 03-15-2025 10:49-0400 Body temperature 98.8 [degF] Chair 4 Work Phone: [facility] 03-15-2025 10:49-0400 Diastolic blood pressure 67 mm[Hg] Chair 4 Work Phone: [facility] 03-15-2025 10:49-0400 Heart rate 97 /min Chair 4 Work Phone: [facility] 03-15-2025 10:49-0400 Respiratory rate 18 /min Chair 4 Work Phone: [facility] 03-15-2025 10:49-0400 SaO2% (BldA) [Mass fraction] 98 % Chair 4 Work Phone: [facility] 03-15-2025 10:49-0400 Systolic blood pressure 125 mm[Hg] Chair 4 Work Phone: [facility] 03-09-2025 08:49-0400 Body mass index (BMI) [Ratio] 20.87 kg/m2 Earl Cardenas MD Work Phone: [facility] 03-09-2025 08:49-0400 Body temperature 97.9 [degF] Earl Cardenas MD Work Phone: [facility] 03-09-2025 08:49-0400 Body weight 56.9 kg Earl Cardenas MD Work Phone: [facility] 03-09-2025 08:49-0400 Diastolic blood pressure 67 mm[Hg] Earl Cardenas MD Work Phone: [facility] 03-09-2025 08:49-0400 Heart rate 88 /min Earl Cardenas MD Work Phone: [facility] 03-09-2025 08:49-0400 Respiratory rate 16 /min Earl Cardenas MD Work Phone: [facility] 03-09-2025 08:49-0400 SaO2% (BldA) [Mass fraction] 100 % Earl Cardenas MD Work Phone: [facility] 03-09-2025 08:49-0400 Systolic blood pressure 115 mm[Hg] Earl Cardenas MD Work Phone: [facility] 03-05-2025 15:01-0400 Body height 165.1 cm Earl Cardenas MD Work Phone: [facility] 03-05-2025 15:01-0400 Body mass index (BMI) [Ratio] 21.3 kg/m2 Earl Cardenas MD Work Phone: [facility] 03-05-2025 15:01-0400 Body temperature 97.5 [degF] Earl Cardenas MD Work Phone: [facility] 03-05-2025 15:01-0400 Body weight 58.06 kg Earl Cardenas MD Work Phone: [facility] 03-05-2025 15:01-0400 Diastolic blood pressure 56 mm[Hg] Earl Cardenas MD Work Phone: [facility] 03-05-2025 15:01-0400 Heart rate 72 /min Earl Cardenas MD Work Phone: [facility] 03-05-2025 15:01-0400 Systolic blood pressure 114 mm[Hg] Earl Cardenas MD Work Phone: [facility] 03-05-2025 13:33-0400 Body height 165.1 cm Pac 2 Work Phone: [facility] 03-05-2025 13:33-0400 Body mass index (BMI) [Ratio] 21.39 kg/m2 Pac 2 Work Phone: [facility] 03-05-2025 13:33-0400 Body temperature 97.5 [degF] Pacc 2 Work Phone: [facility] 03-05-2025 13:33-0400 Body weight 58.3 kg Pacc 2 Work Phone: [facility] 03-05-2025 13:33-0400 Diastolic blood pressure 56 mm[Hg] Pacc 2 Work Phone: [facility] 03-05-2025 13:33-0400 Heart rate 72 /min Pacc 2 Work Phone: [facility] 03-05-2025 13:33-0400 SaO2% (BldA) [Mass fraction] 100 % Pacc 2 Work Phone: [facility] 03-05-2025 13:33-0400 Systolic blood pressure 114 mm[Hg] Pacc 2 Work Phone: [facility] 07-08-2024 09:51-0400 Body mass index (BMI) [Ratio] 22.96 kg/m2 Izabela Padilla MD Work Phone: [facility] 07-08-2024 09:51-0400 Body weight 62.6 kg Izabela Padilla MD Work Phone: [facility] 05-08-2024 11:09-0400 Body height 165.1 cm Giana Carpenter MD Work Phone: [facility] 05-08-2024 11:09-0400 Body mass index (BMI) [Ratio] 22.78 kg/m2 Giana Carpenter MD Work Phone: [facility] 05-08-2024 11:09-0400 Body temperature 97.11 [degF] Giana Carpenter MD Work Phone: [facility] 05-08-2024 11:09-0400 Body weight 62.1 kg Giana Carpenter MD Work Phone: [facility] 05-08-2024 11:09-0400 Diastolic blood pressure 79 mm[Hg] Giana Carpenter MD Work Phone: [facility] 05-08-2024 11:09-0400 Heart rate 66 /min Giana Carpenter MD Work Phone: [facility] 05-08-2024 11:09-0400 Respiratory rate 16 /min Giana Carpenter MD Work Phone: [facility] 05-08-2024 11:09-0400 SaO2% (BldA) [Mass fraction] 100 % Giana Carpenter MD Work Phone: [facility] 05-08-2024 11:09-0400 Systolic blood pressure 133 mm[Hg] Giana Mendoza Work Phone: [facility] 01-14-2023 10:30-0400 Body height 162.56 cm Jamie Ramirez Other [facility] Other 01-14-2023 10:30-0400 Body mass index (BMI) [Ratio] 23 kg/m2 Jamie Ramirez Other [facility] Other 01-14-2023 10:30-0400 Body weight 60.78 kg Jamie Ramirez Other [facility] Other 01-14-2023 10:30-0400 Diastolic blood pressure 68 mm[Hg] Jamie Ramirez Other [employer] Other 01-14-2023 10:30-0400 SaO2% (BldA) [Mass fraction] 98 % Jamie Ramirez Other [facility] Other 01-14-2023 10:30-0400 Systolic blood pressure 100 mm[Hg] Jamie Ramirez Other [employer] Other 03-20-2022 15:26-0400 Body height 165.1 cm Giana Carpenter MD Work Phone: [facility] 03-20-2022 15:26-0400 Body temperature 97.3 [degF] Giana Carpenter MD Work Phone: [facility] 03-20-2022 15:26-0400 Body weight 62.6 kg Giana Carpenter MD Work Phone: [facility] 03-20-2022 15:26-0400 Diastolic blood pressure 66 mm[Hg] Giana Carpenter MD Work Phone: [facility] 03-20-2022 15:26-0400 Heart rate 76 /min Ginaa Carpenter MD Work Phone: [facility] 03-20-2022 15:26-0400 Respiratory rate 16 /min Giana Carpenter MD Work Phone: [facility] 03-20-2022 15:26-0400 SaO2% (BldA) [Mass fraction] 98 % Giana Carpenter MD Work Phone: [facility] 03-20-2022 15:26-0400 Systolic blood pressure 117 mm[Hg] Giana Mendoza Work Phone: [facility] Encounters Encounter Date Encounter Type Care Provider Facility Start: 07-01-2025 End: 07-01-2025 ambulatory BEN A KHORANA Facility:[facility] Start: 06-30-2025 End: 06-30-2025 ambulatory NAILA GEORGE Facility:[facility] Start: 06-29-2025 End: 06-29-2025 ambulatory BEN A KHORANA Facility:[facility] Start: 06-29-2025 End: 06-29-2025 ambulatory JAMIE RAMIREZ Facility:[facility] Start: 06-15-2025 End: 06-15-2025 ambulatory JAMIE RAMIREZ Facility:[facility] Start: 06-07-2025 End: 06-07-2025 Patient encounter procedure Belgica Landrum MD Work Phone: Ophthalmology Comment on above: CNVM (choroidal neov ascular membrane), left (Primary Dx); Central serous chorioretinopathy, left eye; Nuclear sclerosis of both eyes Start: 06-07-2025 End: 06-07-2025 ambulatory BELGICA LANDRUM Facility:[facility] Start: 06-04-2025 End: 06-04-2025 Telephone encounter Ben Medellin MD Work Phone: Hematology/Oncology Comment on above: Care Coordination; S ymptom Management Start: 06-03-2025 End: 06-03-2025 ambulatory Chair 20 Ubaldo Work Phone: Hematology/Oncology Comment on above: 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) Start: 06-01-2025 End: 06-04-2025 Follow-up encounter Nancy Hills APRN.CNP Work Phone: Hematology/Oncology Start: 06-01-2025 End: 06-01-2025 ambulatory Salud Falcon PA-C Work Phone: Hematology/Oncology Comment on above: 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); Duodenal adenocarcinoma (HCC) Start: 06-01-2025 End: 06-01-2025 Patient encounter procedure Salud Falcon PA-C Work Phone: Hematology/Oncology Start: 06-01-2025 End: 06-02-2025 ambulatory Chair 13 [facility] 3 Work Phone: Hematology/Oncology Comment on above: Encounter for antine oplastic chemotherapy (Primary Dx); Malignant neoplasm of duodenum (HCC) Start: 06-01-2025 End: 06-01-2025 ambulatory [facility] [place] [facility] Work Phone: Hematology/Oncology Comment on above: Duodenal cancer (HCC ); Iron deficiency anemia due to chronic blood loss; Duodenal adenocarcinoma (HCC); Malaise and fatigue Start: 05-26-2025 End: 05-26-2025 Telephone encounter Ben Medellin MD Work Phone: Hematology/Oncology Comment on above: 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 Specialist - O ther (Symptom update) Start: 05-25-2025 End: 05-25-2025 Telephone encounter Ben Medellin MD Work Phone: Hematology/Oncology Comment on above: Diarrhea Start: 05-20-2025 End: 05-21-2025 ambulatory Chair 9 [facility] [place] 3 Work Phone: Hematology/Oncology Comment on above: 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) Start: 05-20-2025 End: 05-21-2025 ambulatory JAMIE RAMIREZ Facility:[facility] Start: 05-18-2025 End: 05-19-2025 ambulatory Chair 10 [place] 3 Work Phone: Hematology/Oncology Comment on above: 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); Duodenal cancer (HCC); Duodenal adenocarcinoma (HCC); Malaise and fatigue Start: 05-18-2025 End: 05-18-2025 Patient encounter procedure Demetrius Gallagher PA-C Work Phone: Hematology/Oncology Start: 05-18-2025 End: 05-18-2025 ambulatory [facility] [place] [facility] Work Phone: Hematology/Oncology Comment on above: Duodenal cancer (HCC ); Duodenal adenocarcinoma (HCC) Duodenal adenocarcin onur (HCC) (Primary Dx); Malaise and fatigue; Abnormal weight loss; Transaminitis Start: 05-10-2025 End: 05-10-2025 Patient encounter procedure Belgica Landrum MD Work Phone: Ophthalmology Comment on above: CNVM (choroidal neov ascular membrane), left (Primary Dx); Central serous chorioretinopathy, left eye; Nuclear sclerosis of both eyes Chemotherapy Follow- up (C1D1) Start: 05-10-2025 End: 05-10-2025 ambulatory BELGICA LANDRUM Facility:[facility] Start: 05-07-2025 End: 05-07-2025 Patient encounter procedure Nancy Hills APRN.DRAMA CRITIC Work Phone: Hematology/Oncology Start: 05-07-2025 End: 05-07-2025 ambulatory Nancy Hills APRN.DRAMA CRITIC Work Phone: Hematology/Oncology Comment on above: Iron deficiency anem ia due to chronic blood loss (Primary Dx) Start: 05-06-2025 End: 05-07-2025 ambulatory Chair 8 [place] 3 Work Phone: Hematology/Oncology Comment on above: 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) Start: 05-04-2025 End: 05-07-2025 Chart abstracting Jaswinder Siegel Work Phone: Hematology/Oncology Comment on above: Research (CASE [id number]) Start: 05-04-2025 End: 05-04-2025 ambulatory Chair 6 [place] 3 Work Phone: Hematology/Oncology Comment on above: 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) Start: 05-04-2025 End: 05-04-2025 Patient encounter procedure Ben Medellin MD Work Phone: Hematology/Oncology Start: 05-04-2025 End: 05-05-2025 ambulatory Ben Medellin MD Work Phone: Hematology/Oncology Comment on above: Duodenal cancer (HCC ) (Primary Dx); Nausea; Abnormal LFTs First Time Treatment Education (Folfox/Atezo) Duodenal cancer (HCC ) Start: 05-04-2025 End: 05-04-2025 ambulatory JAMIE RAMIREZ Facility:[facility] Start: 05-03-2025 End: 05-03-2025 Telephone encounter Lori Tran RN Hematology/Oncology Comment on above: Care Coordination (P re treatment call) Start: 04-16-2025 End: 04-16-2025 ambulatory JAMIE RAMIREZ Facility:[facility] Start: 04-15-2025 End: 04-15-2025 E-mail encounter from caregiver Earl Cardenas MD Work Phone: General Surgery Start: 04-15-2025 End: 04-15-2025 Follow-up encounter Earl Cardenas MD Work Phone: General Surgery Comment on above: 3 month follow up Start: 04-12-2025 End: 04-12-2025 Orders Only Michelle Jain [facility] Hematology/Oncology Comment on above: 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) Start: 04-09-2025 End: 04-09-2025 E-mail encounter from caregiver [facility] Provider Nutrition Therapy Start: 04-09-2025 End: 04-09-2025 Telephone encounter Jacque Ponce RN [facility] Radiol ogy Procedure Start: 04-09-2025 End: 04-09-2025 ambulatory BEN MEDELLIN Facility:[facility] Start: 04-09-2025 End: 04-09-2025 ambulatory Ben Medellin MD Work Phone: Hematology/Oncology Comment on above: Duodenal cancer (HCC ) (Primary Dx); Increased risk for hereditary cancer syndrome Start: 04-09-2025 End: 04-09-2025 Patient encounter procedure Ben Medellin MD Work Phone: Hematology/Oncology Start: 04-09-2025 End: 04-09-2025 Nutrition therapy Scarlet Mcmanus RD Work Phone: Nutrition Therapy Comment on above: Nutrition Assessment Nutrition Summary Start: 04-09-2025 End: 04-09-[address] Work Phone: Nutrition Therapy Start: 04-09-2025 End: 04-09-2025 Postop follow up visit related to original px Earl Cardenas MD Work Phone: General Surgery Comment on above: Duodenal adenocarcin onur (HCC) (Primary Dx) Start: 04-09-2025 End: 04-09-2025 ambulatory EARL CARDENAS Facility:[facility] Start: 04-05-2025 End: 04-05-2025 Patient encounter procedure Belgica Landrum MD Work Phone: Ophthalmology Comment on above: Central serous chori oretinopathy, left eye (Primary Dx); CNVM (choroidal neovascular membrane), left; Nuclear sclerosis of both eyes Start: 04-05-2025 End: 04-05-2025 ambulatory BELGICA LANDRUM Facility:[facility] Start: 03-29-2025 End: 04-02-2025 Telephone encounter Earl Cardenas MD Work Phone: General Surgery Comment on above: Medication Problem Start: 03-24-2025 End: 03-24-2025 Orders Only Daniel Grijalva PA-C Work Phone: General Surgery Comment on above: Macular degeneration , unspecified laterality, unspecified type (Primary Dx) Start: 03-23-2025 End: 03-23-2025 Orders Only Earl Cardenas MD Work Phone: General Surgery Comment on above: Duodenal adenocarcin onur (HCC) (Primary Dx) Start: 03-18-2025 End: 03-18-2025 Orders Only Earl Cardenas MD Work Phone: General Surgery Comment on above: Ampullary adenoma (P rimary Dx); Primary adenocarcinoma of ampulla of Vater (HCC) Start: 03-17-2025 Encounter for other preprocedural examination EARL CARDENAS [facility] Start: 03-17-2025 End: 03-25-2025 Evaluation and management of inpatient EARL CARDENAS Facility:[facility] Start: 03-15-2025 End: 03-16-2025 ambulatory Chair 7 [place] [address] Work Phone: Hematology/Oncology Comment on above: Iron deficiency anem ia due to chronic blood loss (Primary Dx) Start: 03-09-2025 End: 03-09-2025 Admission to same day surgery center Earl Cardenas MD Work Phone: General Surgery Comment on above: bowel prep instructi ons for March 16 Start: 03-09-2025 End: 03-09-2025 E-mail encounter from caregiver Earl Cardenas MD Work Phone: General Surgery Start: 03-09-2025 End: 03-09-2025 Follow-up encounter Nancy Hills APRN.CNP Work Phone: Hematology/Oncology Start: 03-09-2025 End: 03-09-2025 ambulatory NANCY HILLS Facility:[facility] Start: 03-09-2025 End: 03-09-2025 ambulatory Nancy Mirker DYE REEL OPERATOR HELPER.DRAMA CRITIC Work Phone: Hematology/Oncology Comment on above: Iron deficiency anem ia due to chronic blood loss Start: 03-09-2025 End: 03-09-2025 Patient encounter procedure Nancy Mirmichael RAMOS.DRAMA CRITIC Work Phone: Hematology/Oncology Start: 03-09-2025 End: 03-09-2025 Office outpatient visit 40 minutes Earl Cardenas MD Work Phone: General Surgery Comment on above: Neoplasm of ampulla of Vater (Primary Dx); Iron deficiency anemia due to chronic blood loss; Duodenal adenocarcinoma (HCC) Start: 03-07-2025 ambulatory EARL CARDENAS Facility:[facility] Start: 03-07-2025 End: 03-07-2025 Subsequent hospital visit by physician Mri 6 [facility] Main Q (I-Stat/1.5t/3t) Work Phone: MRI Q Comment on above: Liver mass [R16.0] Start: 03-05-2025 End: 03-05-2025 ambulatory EARL CARDENAS Facility:[facility] Start: 03-05-2025 End: 03-05-2025 Patient encounter procedure Batool Velarde PhD Work Phone: General Surgery Comment on above: Neoplasm of ampulla of Vater (Primary Dx) Start: 03-05-2025 End: 03-10-2025 Office outpatient new 45 minutes Earl Cardenas MD Work Phone: General Surgery Comment on above: Nausea (Primary Dx); Duodenal adenocarcinoma (HCC); Iron deficiency anemia due to chronic blood loss Start: 03-05-2025 End: 03-05-2025 ambulatory EARL CARDENAS Facility:[facility] Start: 03-05-2025 End: 03-05-2025 Admission to establishment [facility] 2 Work Phone: Pre Anesthesia Start: 03-05-2025 End: 03-05-2025 Anesthesia consultation [facility] 2 Work Phone: Pre Anesthesia Comment on above: Personal history of malignant neoplasm of breast; Hypothyroidism, unspecified type; Hyperlipidemia, unspecified hyperlipidemia type; Liver cyst; Gastroesophageal reflux disease, unspecified whether esophagitis present; PONV (postoperative nausea and vomiting) Start: 03-05-2025 End: 03-05-2025 ambulatory JAMIE RAMIREZ Facility:[facility] Start: 03-05-2025 End: 03-05-2025 ambulatory EARL CARDENAS Facility:[facility] Start: 03-05-2025 ambulatory EARL CARDENAS Facility:[facility] Start: 03-05-2025 End: 03-05-2025 Subsequent hospital visit by physician Ct Prep Qb Radiology Comment on above: 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 Cardenas; 03/17/2025 DX.RONNA/ GLORIA/THERESA Start: 02-26-2025 End: 02-26-2025 ambulatory Rhonda Guajardo RN Work Phone: General Surgery Start: 02-26-2025 End: 02-26-2025 Preprocedural examination done Rhonda Guajardo RN Work Phone: [facility] Work Phone: Start: 02-25-2025 End: 02-26-2025 Telephone encounter Earl Cardenas MD Work Phone: General Surgery Comment on above: Patient Update (Conc yasmin for duodenal malignancy) Start: 02-24-2025 End: 02-25-2025 Telephone encounter Earl Cardenas MD Work Phone: General Surgery Comment on above: Patient Question; Ap pointment Start: 07-08-2024 End: 07-08-2024 Cirilo Padilla MD Work Phone: [facility] Start: 07-08-2024 End: 07-08-2024 Cirilo Padilla MD Work Phone: [facility] Start: 07-08-2024 End: 07-08-2024 ambulatory IZABELA PADILLA Not Available Start: 07-08-2024 End: 07-08-2024 Office outpatient visit 15 minutes Izabela Padilla MD Work Phone: [facility] Comment on above: Chronic idiopathic u rticaria (Primary Dx) Start: 05-08-2024 End: 05-08-2024 ambulatory Giana Carpenter MD Work Phone: Hematology/Oncology Comment on above: History of breast ca ncer (Primary Dx) Start: 05-08-2024 End: 05-08-2024 Patient encounter procedure Giana Carpenter MD Work Phone: Hematology/Oncology Start: 02-27-2024 End: 02-27-2024 ambulatory IZABELA PADILLA Not Available Start: 07-26-2023 End: 07-26-2023 ambulatory Leif Carias Other [facility] Other Start: 07-26-2023 Telephone encounter Leif Carias [facility] Start: 05-22-2023 Telephone encounter Giana avendano MD Work Phone: Cancer Appts Comment on above: Orders Start: 03-27-2023 Telephone encounter Roseline Valerio Hematology/Oncology Comment on above: Results Start: 01-18-2023 End: 01-18-2023 ambulatory Jamie Ramirez Other [facility] Other Start: 01-18-2023 Telephone encounter Jamie Ramirez [facility] Start: 01-14-2023 End: 01-14-2023 ambulatory Jamie Ramirez Other [facility] Other Start: 01-14-2023 Office outpatient vi sit 15 minutes Jamie Ramirez [facility] Start: 05-26-2022 End: 05-27-[address] JAMIE RAMIREZ Facility: Start: 05-25-2022 Gynecological examin ation normal Leif Carias Other 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, estrogen receptor positive (HCC) (Primary Dx); Encounter for screening for malignant neoplasm of breast, unspecified screening modality Start: 03-20-2022 End: 03-20-2022 Patient encounter procedure Giana Carpenter MD Work Phone: [facility] Start: 03-19-2022 End: 03-19-[address] JAMIE RAMIREZ Facility:H1 Start: 03-13-2022 End: 03-14-2022 ambulatory GIANA CARPENTER Facility:H1 Start: 05-31-2021 ambulatory ROHIT DUMONT JR [facility] ty:H1 Procedures Date Procedure Procedure Detail Performing Clinician Start: 06-07-2025 Intravitreal njx pharmacologic agt spx Belgica Landrum MD Work Phone: Start: 06-07-2025 Computerized ophthal elie imaging retina Belgica Landrum MD Work Phone: Start: 06-01-2025 Blood count complete auto&auto difrntl wbc Nikolai Giles MD Work Phone: Start: 05-18-2025 Assay of thyroid sti mulating hormone tsh Demetrius Gallagher PA-C Work Phone: Start: 05-18-2025 Blood count complete auto&auto difrntl wbc Nikolai Giles MD Work Phone: Start: 05-10-2025 Intravitreal njx pharmacologic agt spx Belgica Landrum MD Work Phone: Start: 05-10-2025 Computerized ophthal elie imaging retina Belgica Landrum MD Work Phone: Start: 05-04-2025 Blood count complete auto&auto difrntl wbc Nikolai Giles MD Work Phone: Start: 04-05-2025 Intravitreal njx pharmacologic agt spx Belgica Landrum MD Work Phone: Start: 04-05-2025 OCT ANGIOGRAPHY OU ( BOTH EYES) Belgica Landrum MD Work Phone: Start: 04-05-2025 Computerized ophthal elie imaging retina Belgica Landrum MD Work Phone: Start: 03-05-2025 Antibody screen JAMIE JAMES Comment on above: Order Comment: Speci men Type: BLOOD SPECIMENOrdering Facility: [facility] Address: [address] [place] [address] Performed By: #### T [id number] ####CC MAIN BLOOD BANKCLIA [id number] [address] STATES OF [facility] Start: 03-05-2025 Ct abdomen & pelvis w/contrast material Earl Cardenas MD Work Phone: Start: 03-05-2025 Ct thorax w/contrast material Earl Cardenas MD Work Phone: Start: 03-05-2025 Creatinine [Mass/vol ume] in Serum or Plasma [facility] Provider Start: 02-19-2025 CT OUTSIDE CD DICOM IMPORT Earl Cardenas MD Work Phone: Start: 03-21-2021 Adult depression scr eening assessment Giana Carpenter MD Work Phone: Start: 02-23-2020 Mammography Izabela carreon MD Work Phone: Start: 01-21-2017 General examination of patient Leif Carias Other Start: 08-08-2009 Mammography Giana avendano MD Work Phone: Depression screening [place] Carias Other Plan of Treatment Date Care Activity Detail Author Start: 2029 RSV Vaccine (1 - 1-dose 75+ series) RSV Vaccine (1 - 1-dose 75+ series) [facility] Start: 06-01-2028 Diabetes Screening Diabetes Screening [facility] Start: 05-18-2028 Diabetes Screening Diabetes Screening [facility] Start: 05-04-2028 Diabetes Screening Diabetes Screening [facility] Start: 04-09-2028 Diabetes Screening Diabetes Screening [facility] Start: 03-25-2028 Diabetes Screening Diabetes Screening [facility] Start: 03-24-2028 Diabetes Screening Diabetes Screening [facility] Start: 03-23-2028 Diabetes Screening Diabetes Screening [facility] Start: 03-17-2028 Diabetes Screening Diabetes Screening [facility] Start: 03-05-2028 Diabetes Screening Diabetes Screening [facility] Start: 05-08-2027 Diabetes Screening Diabetes Screening [facility] Start: 06-22-2026 End: 11-29-2026 OCT MACULA CIRRUS OU (BOTH EYES) OCT MACULA CIRRUS OU (BOTH EYES) [facility] Imaging Routine Central serous chorioretinopathy, left eye CNVM (choroidal neovascular membrane), left Expected: 06/22/2026, Expires: 11/29/2026 [facility] Work Phone: Comment on above: Expected: 06/22/2026, Expires: Start: 05-21-2026 DIABETES SCREEN DIABETES SCREEN [facility] Start: 07-01-2025 End: 07-01-2025 ambulatory Hematology/Oncology Comment on above: PUMP D/C PUMP DC Start: 06-29-2025 End: 06-29-2025 ambulatory 06/29/2025 2:15 PM [facility] Hematology/Oncology [address] [place] [address] C49.4 Hematology/Oncology Comment on above: C49.4 Start: 06-29-2025 End: 06-29-2025 ambulatory Hematology/Oncology Comment on above: [place] LABS C49.4 FLFX C+ ATEZOLIZUMAB Start: 06-17-2025 End: 06-17-2025 ambulatory Hematology/Oncology Comment on above: PUMP D/C PUMP DC Start: 06-15-2025 End: 06-15-2025 ambulatory Hematology/Oncology Comment on above: C49.4 FLFX C+ ATEZOLIZUMAB Start: 06-15-2025 End: 06-15-2025 ambulatory Hematology/Oncology Comment on above: TX LABS C49.4 Start: 06-07-2025 End: 06-07-2025 Patient encounter procedure 06/07/2025 10:00 AM EDT Office Visit [facility] Ophthalmology [address] [address] Belgica Landrum MD [address] Mail Code [address] [place] [address] [facility] [address] [address] *4-6 W, DFE/OCT, AVASTIN OS Ophthalmology Comment on above: *4-6 W, DFE/OCT, AVASTIN OS Start: 06-03-2025 End: 06-03-2025 ambulatory Hematology/Oncology Comment on above: PUMP DC Start: 06-01-2025 End: 06-01-2025 ambulatory 06/01/2025 12:30 PM EDT Visit (SP) Office Hematology/Oncology [address] [place] [address] Salud Falcon PA-C [address] [place] [address] [C17.0] Hematology/Oncology Comment on above: [C17.0] Start: 06-01-2025 End: 06-01-2025 ambulatory 06/01/2025 11:15 AM EDT Infusion Center Hematology/Oncology [address] [place] [address] FLFX C+ ATEZOLIZUMAB Hematology/Oncology Comment on above: FLFX C+ ATEZOLIZUMAB Start: 06-01-2025 End: 06-01-2025 ambulatory Hematology/Oncology Comment on above: DRAW LABS [C17.0] Start: 05-24-2025 Influenza vaccination [facility] Start: 05-20-2025 End: 05-20-2025 ambulatory 05/20/2025 3:15 PM EDT Infusion Center Hematology/Oncology [address] [place] [address] PUMP DC Hematology/Oncology Comment on above: PUMP DC Start: 05-18-2025 End: 05-18-2025 ambulatory 05/18/2025 10:45 AM EDT Infusion Center Hematology/Oncology [address] [place] [address] FLFX C+ ATEZOLIZUMAB Hematology/Oncology Comment on above: FLFX C+ ATEZOLIZUMAB Start: 05-18-2025 End: 05-18-2025 ambulatory Hematology/Oncology Comment on above: DRAW LABS [C17.0] Start: 05-10-2025 End: 05-10-2025 Patient encounter procedure 05/10/2025 10:15 AM EDT Office Visit [facility] Ophthalmology [address] [address] Belgica Landrum MD [address] Mail Code [address] [address] [facility] [address] [address] *4-6 W, DFE/OCT, AVASTIN OS Ophthalmology Comment on above: *4-6 W, DFE/OCT, AVASTIN OS Start: 05-07-2025 End: 05-07-2025 Follow-up encounter Hematology/Oncology Comment on above: Follow up per wq Start: 05-06-2025 End: 05-06-2025 ambulatory 05/06/2025 3:15 PM EDT Infusion Center Hematology/Oncology [address] [place] [address] PUMP DC Hematology/Oncology Comment on above: PUMP DC Start: 05-04-2025 End: 05-04-2025 ambulatory 05/04/2025 11:45 AM EDT Infusion Center Hematology/Oncology [address] [place] [address] FLFX C+ ATEZOLIZUMAB Hematology/Oncology Comment on above: FLFX C+ ATEZOLIZUMAB Start: 05-04-2025 End: 05-04-2025 ambulatory Hematology/Oncology Comment on above: DRAW LABS [C17.0] Start: 04-27-2025 End: 07-27-2025 CBC W Auto Differential panel - Blood COMPLETE BLOOD COUNT AND DIFFERENTIAL Lab Routine Iron deficiency anemia due to chronic blood loss Expected: 04/27/2025, Expires: 07/27/2025 [facility] Work Phone: Comment on above: Expected: 04/27/2025, Expires: Start: 04-27-2025 End: 07-27-2025 Ferritin [Mass/volume] in Serum or Plasma FERRITIN Lab Routine Iron deficiency anemia due to chronic blood loss Expected: 04/27/2025, Expires: 07/27/2025 [facility] Comment on above: Expected: 04/27/2025, Expires: Start: 04-27-2025 End: 07-27-2025 Iron and Iron binding capacity panel - Serum or Plasma IRON AND TIBC Lab Routine Iron deficiency anemia due to chronic blood loss Expected: 04/27/2025, Expires: 07/27/2025 [facility] Comment on above: Expected: 04/27/2025, Expires: Start: 04-16-2025 End: 04-16-2025 Admission to same day surgery center 04/16/2025 1:00 PM EDT - 04/16/2025 2:30 PM EDT Surgery [facility] Procedure [id number] [place] [address] Shahana Fuchs MD [address] [place] [address] INSERTION PORT VENOUS ACCESS ADULT [facility] Procedure Comment on above: INSERTION PORT VENOUS ACCESS ADULT Start: 04-16-2025 End: 04-16-2025 Insj tunneled ctr vad w/subq port age 4 yr/> INSERTION PORT VENOUS ACCESS ADULT Duodenal cancer (HCC) 04/16/2025 1:00 PM EDT AV IR Start: 04-16-2025 Subsequent hospital visit by physician 04/16/2025 1:00 PM EDT Hospital Encounter [facility] Procedure [id number] [place] [address] Shahana Fuchs MD [address] [place] [address] Duodenal cancer (HCC) [C17.0] [facility] Procedure Comment on above: Duodenal cancer (HCC) [C17.0] Start: 04-09-2025 End: 07-09-2025 DPYD/UGT1A1 GENOTYPING PANEL [facility] Comment on above: Expected: 04/09/2025, Expires: Start: 04-09-2025 End: 07-09-2025 NVTA INVITAE HEREDITARY DIAGNOSTIC CANCER PANEL [facility] Work Phone: Comment on above: Expected: 04/09/2025, Expires: Start: 04-09-2025 End: 04-09-2025 ambulatory 04/09/2025 11:20 AM EDT Visit (SP) Office Hematology/Oncology [address] [place] [id number] [place] [address] [place] [address] duodenal cancer Hematology/Oncology Comment on above: duodenal cancer Start: 04-09-2025 End: 04-09-2025 Patient encounter procedure General Surgery Comment on above: hospital discharge follow up DR CARDENAS REFERRAL* * Start: 04-05-2025 End: 04-05-2025 Patient encounter procedure 04/05/2025 12:45 PM EDT Office Visit [facility] Ophthalmology [address] [address] Belgica Landrum MD [address] [facility] Mail [address] [place] [address] [facility] [address] [address] *NEW, AMD EVAL, DFE/OCT Ophthalmology Comment on above: *NEW, AMD EVAL, DFE/OCT Start: 03-17-2025 End: 03-17-2025 Admission to same day surgery center 03/17/2025 8:30 AM EDT - 03/17/2025 3:15 PM EDT Surgery Admitting [address] [place] [address] Earl Cardenas MD 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) Intra-abdominal and pelvic swelling, mass and lump, unspecified site 03/17/2025 8:30 AM EDT [facility] Start: 03-17-2025 Subsequent hospital visit by physician Admitting Comment on above: Preoperative examination [Z01.818], Daly gnant neoplasm of ampulla of Vater (HCC) [C24.1], 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) Intra-abdominal and pelvic swelling, mass and lump, unspecified site Expected: 02/26/2025 (Approximate), Expires: 05/28/2025 [facility] Comment on above: Expected: 02/26/2025 (Approximate), Expi res: 05/28/2025 Start: 02-26-2025 End: 05-28-2025 Comprehensive metabolic 2000 panel - Serum or Plasma COMPREHENSIVE METABOLIC PANEL Lab Routine Preoperative examination 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) Intra-abdominal and pelvic swelling, mass and lump, unspecified site Expected: 02/26/2025 (Approximate), Expires: 05/28/2025 [facility] Comment on above: Expected: 02/26/2025 (Approximate), Expi res: 05/28/2025 Start: 02-26-2025 End: 05-28-2025 CONFIRM BLOOD TYPE CONFIRM BLOOD TYPE Blood Bank Routine Preoperative examination 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) Intra-abdominal and pelvic swelling, mass and lump, unspecified site Expected: 02/26/2025, Expires: 05/28/2025 [facility] Comment on above: Expected: 02/26/2025, Expires: Start: 02-26-2025 End: 05-28-2025 TYPE AND SCREEN,30 DAY TYPE AND SCREEN,30 DAY Blood Bank Routine Preoperative examination 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) Intra-abdominal and pelvic swelling, mass and lump, unspecified site Expected: 02/26/2025, Expires: 05/28/2025 [facility] Comment on above: Expected: 02/26/2025, Expires: Start: 02-25-2025 End: 05-27-2025 C reactive protein [Mass/volume] in Serum or Plasma C-REACTIVE PROTEIN Lab Routine 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) Intra-abdominal and pelvic swelling, mass and lump, unspecified site 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) Expected: 02/25/2025, Expires: 05/27/2025 [facility] Comment on above: Expected: 02/25/2025, Expires: Start: 02-25-2025 End: 05-27-2025 Cancer Ag 19-9 [Units/volume] in Serum or Plasma CA 19-9 Lab Routine 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) Intra-abdominal and pelvic swelling, mass and lump, unspecified site 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) Expected: 02/25/2025, Expires: 05/27/2025 [facility] Comment on above: Expected: 02/25/2025, Expires: Start: 02-25-2025 End: 05-27-2025 Carcinoembryonic Ag [Mass/volume] in Serum or Plasma CARCINOEMBRYONIC ANTIGEN Lab Routine 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) Intra-abdominal and pelvic swelling, mass and lump, unspecified site 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) Expected: 02/25/2025, Expires: 05/27/2025 [facility] Comment on above: Expected: 02/25/2025, Expires: Start: 02-25-2025 End: 05-27-2025 CBC W Auto Differential panel - Blood COMPLETE BLOOD COUNT AND DIFFERENTIAL Lab Routine 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) Intra-abdominal and pelvic swelling, mass and lump, unspecified site 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) Expected: 02/25/2025, Expires: 05/27/2025 [facility] Comment on above: Expected: 02/25/2025, Expires: Start: 02-25-2025 End: 05-27-2025 Comprehensive metabolic 2000 panel - Serum or Plasma COMPREHENSIVE METABOLIC PANEL Lab Routine 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) Intra-abdominal and pelvic swelling, mass and lump, unspecified site 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) Expected: 02/25/2025, Expires: 05/27/2025 [facility] Comment on above: Expected: 02/25/2025, Expires: Start: 02-25-2025 End: 05-27-2025 CONFIRM BLOOD TYPE CONFIRM BLOOD TYPE Blood Bank Routine 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) Intra-abdominal and pelvic swelling, mass and lump, unspecified site 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) Expected: 02/25/2025, Expires: 05/27/2025 [facility] Comment on above: Expected: 02/25/2025, Expires: Start: 02-25-2025 End: 05-27-2025 Creatinine and Glomerular filtration rate.predicted panel - Serum, Plasma or Blood CREATININE BLD Lab Routine 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) Intra-abdominal and pelvic swelling, mass and lump, unspecified site 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) Expected: 02/25/2025, Expires: 05/27/2025 [facility] Comment on above: Expected: 02/25/2025, Expires: Start: 02-25-2025 End: 05-27-2025 DPYD/UGT1A1 GENOTYPING PANEL DPYD/UGT1A1 GENOTYPING PANEL Lab Routine 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) Intra-abdominal and pelvic swelling, mass and lump, unspecified site 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) Expected: 02/25/2025, Expires: 05/27/2025 [facility] Comment on above: Expected: 02/25/2025, Expires: Start: 02-25-2025 End: 05-27-2025 Ferritin [Mass/volume] in Serum or Plasma FERRITIN Lab Routine 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) Intra-abdominal and pelvic swelling, mass and lump, unspecified site 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) Expected: 02/25/2025, Expires: 05/27/2025 [facility] Comment on above: Expected: 02/25/2025, Expires: Start: 02-25-2025 End: 05-27-2025 Hemoglobin A1c in Blood HEMOGLOBIN A1C Lab Routine 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) Intra-abdominal and pelvic swelling, mass and lump, unspecified site 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) Expected: 02/25/2025, Expires: 05/27/2025 [facility] Comment on above: Expected: 02/25/2025, Expires: Start: 02-25-2025 End: 05-27-2025 Iron and Iron binding capacity panel - Serum or Plasma IRON AND TIBC Lab Routine 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) Intra-abdominal and pelvic swelling, mass and lump, unspecified site 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) Expected: 02/25/2025, Expires: 05/27/2025 [facility] Comment on above: Expected: 02/25/2025, Expires: Start: 02-25-2025 End: 05-27-2025 Prealbumin [Mass/volume] in Serum or Plasma PREALBUMIN Lab Routine 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) Intra-abdominal and pelvic swelling, mass and lump, unspecified site 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) Expected: 02/25/2025, Expires: 05/27/2025 [facility] Comment on above: Expected: 02/25/2025, Expires: Start: 02-25-2025 End: 05-27-2025 PT panel - Platelet poor plasma by Coagulation assay PROTHROMBIN TIME Lab Routine 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) Expected: 02/25/2025, Expires: 05/27/2025 [facility] Comment on above: Expected: 02/25/2025, Expires: Start: 02-25-2025 End: 05-27-2025 TYPE AND SCREEN,30 DAY TYPE AND SCREEN,30 DAY Blood Bank Routine 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) Intra-abdominal and pelvic swelling, mass and lump, unspecified site 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) Expected: 02/25/2025, Expires: 05/27/2025 [facility] Comment on above: Expected: 02/25/2025, Expires: Start: 02-18-2025 Covid-19 Vaccine () Covid-19 Vaccine () [facility] Start: 09-23-2024 Advance Directive Discussion Advance Directive Discussion [facility] Start: 09-23-2024 Medicare Advantage Annual Wellness Visit Medicare Advantage Annual Wellness Visit [facility] Start: 05-24-2024 Covid-19 Vaccine () Covid-19 Vaccine () [facility] Start: 05-24-2024 Influenza vaccination Influenza Vaccine (#1) [facility] Start: 03-22-2024 End: 06-21-2024 NORIS SCREENING W MARY LOU NORIS SCREENING W MARY LOU Radiology Routine Encounter for screening mammogram for malignant neoplasm of breast Expected: 03/22/2024 (Approximate), Expires: 06/21/2024 [facility] Work Phone: Comment on above: Expected: 03/22/2024 (Approximate), Expi res: 06/21/2024 Start: 12-11-2023 Covid-19 Vaccine () Covid-19 Vaccine () [facility] Start: 09-23-2023 Advance Directive Discussion Advance Directive Discussion [facility] Start: 05-24-2023 Influenza vaccination INFLUENZA (#1) [facility] Start: 07-01-2023 DIABETES SCREEN DIABETES SCREEN [facility] Start: 03-20-2023 End: 04-19-2023 NORIS SCREENING W MARY LOU NORIS SCREENING W MARY LOU Radiology Routine Encounter for screening for malignant neoplasm of breast, unspecified screening modality Expected: 03/20/2023, Expires: 04/19/2023 [facility] Work Phone: Comment on above: Expected: 03/20/2023, Expires: 3 Start: 09-23-2022 ADVANCE DIRECTIVE DISCUSSION ADVANCE DIRECTIVE DISCUSSION [facility] Start: 09-23-2022 DEPRESSION ASSESSMENT DEPRESSION ASSESSMENT [facility] Start: 05-24-2022 Influenza vaccination INFLUENZA (Season Ended) [facility] Start: 03-21-2022 Adult depression screening assessment DEPRESSION SCREENING [facility] Start: 10-24-2021 Pneumococcal Vaccine: 50+ (3 of 3 - PCV20 or PCV21) Pneumococcal Vaccine: 50+ (3 of 3 - PCV20 or PCV21) [facility] Start: 10-24-2021 Pneumococcal Vaccine: 50+ (3 of 3 - PPSV23, PCV20 or PCV21) Pneumococcal Vaccine: 50+ (3 of 3 - PPSV23, PCV20 or PCV21) [facility] Start: 09-23-2021 ADVANCE DIRECTIVE DISCUSSION ADVANCE DIRECTIVE DISCUSSION [facility] Start: 02-22-2021 Screening for malignant neoplasm of breast [facility] Start: 09-07-2020 Pneumococcal Vaccine: 65+ Years (3 of 3 - PPSV23 or PCV20) Pneumococcal Vaccine: 65+ Years (3 of 3 - PPSV23 or PCV20) [facility] Start: 2019 BONE DENSITY BONE DENSITY [facility] Start: 2019 Pneumococcal Vaccine: 65+ (2 of 2 - PPSV23 or PCV20) Pneumococcal Vaccine: 65+ (2 of 2 - PPSV23 or PCV20) [facility] Start: 2019 PNEUMOCOCCAL: 65+ (2 - PPSV23 if available, else PCV20) PNEUMOCOCCAL: 65+ (2 - PPSV23 if available, else PCV20) [facility] Start: 2019 PNEUMOCOCCAL: 65+ (2 - PPSV23 or PCV20) PNEUMOCOCCAL: 65+ (2 - PPSV23 or PCV20) [facility] Start: 2019 Screening for osteoporosis Bone Density Screening [facility] Start: 09-07-2016 Pneumococcal Vaccine: 50+ (2 of 2 - PPSV23) Pneumococcal Vaccine: 50+ (2 of 2 - PPSV23) [facility] Start: 11-02-2015 Shingrix Vaccine (1 of 2) Shingrix Vaccine (1 of 2) [facility] Start: 11-02-2015 SHINGRIX VACCINE (2 of 3) SHINGRIX VACCINE (2 of 3) [facility] Start: 2014 RSV Vaccine (1 - 1-dose 60+ series) RSV Vaccine (1 - 1-dose 60+ series) [facility] Start: 2014 RSV Vaccine (1 - Risk 60-74 years 1-dose series) RSV Vaccine (1 - Risk 60-74 years 1-dose series) [facility] Start: 08-08-2010 Mammography MAMMOGRAM [facility] Start: 1999 COLOGUARD (FIT-DNA) COLOGUARD (FIT-DNA) [facility] Start: 1999 Colonoscopy COLONOSCOPY [facility] Start: 1999 COLORECTAL CANCER SCREENING COLORECTAL CANCER SCREENING [facility] Start: [address] COLONOGRAPHY [facility] Start: 1999 FECAL OCCULT BLOOD FECAL OCCULT BLOOD [facility] Start: 1999 Lipid panel Lipid Screening [facility] Start: 1999 LIPID SCREEN LIPID SCREEN [facility] Start: 1999 Screening for malignant neoplasm of colon [facility] Start: 1999 SIGMOIDOSCOPY SIGMOIDOSCOPY [facility] Start: 1973 Urine microalbumin profile [facility] Start: 1972 Annual PCP Team Chronic Disease Visit Annual PCP Team Chronic Disease Visit [facility] Start: 1972 Anxiety Screening Anxiety Screening [facility] Start: 1972 Depression Screening Depression Screening [facility] Start: 1972 HEPATITIS C SCREENING HEPATITIS C SCREENING [facility] Start: 1972 Hepatitis C screening Hepatitis C Screening [facility] Start: 1965 Screening for malignant neoplasm of cervix Cervical Cancer Screening [facility] Start: 1959 COVID-19 VACCINE (#1) COVID-19 VACCINE (#1) [facility] Start: 1954 COVID-19 VACCINE (#1) COVID-19 VACCINE (#1) [facility] Start: 1954 Screening for malignant neoplasm of colon [facility] End: 04-09-2026 Cancer Ag 19-9 [Units/volume] in Serum or Plasma CA 19-9 Lab Routine Duodenal cancer (HCC) Every other week for 12 Occurrences starting 04/09/2025 until 04/09/2026 [facility] Comment on above: Every other week for 12 Occurrences star maria antonia 04/09/2025 until 04/09/2026 Cancer Ag 19-9 [Units/volume] in Serum or Plasma CA 19-9 Lab Routine Duodenal cancer (HCC) 04/09/2025 2:18 PM EDT [facility] Cancer Ag 19-9 [Units/volume] in Serum or Plasma CA 19-9 Lab Routine Duodenal cancer (HCC) 05/04/2025 9:40 AM EDT [facility] Cancer Ag 19-9 [Units/volume] in Serum or Plasma CA 19-9 Lab Routine Duodenal cancer (HCC) 05/18/2025 9:22 AM EDT [facility] Cancer Ag 19-9 [Units/volume] in Serum or Plasma CA 19-9 Lab Routine Duodenal cancer (HCC) 06/01/2025 10:50 AM T [facility] End: 04-09-2026 Carcinoembryonic Ag [Mass/volume] in Serum or Plasma CARCINOEMBRYONIC ANTIGEN Lab Routine Duodenal cancer (HCC) Every other week for 12 Occurrences starting 04/09/2025 until 04/09/2026 [facility] Comment on above: Every other week for 12 Occurrences star maria antonia 04/09/2025 until 04/09/2026 Carcinoembryonic Ag [Mass/volume] in Serum or Plasma CARCINOEMBRYONIC ANTIGEN Lab Routine Duodenal cancer (HCC) 04/09/2025 2:18 PM EDT [facility] Carcinoembryonic Ag [Mass/volume] in Serum or Plasma CARCINOEMBRYONIC ANTIGEN Lab Routine Duodenal cancer (HCC) 05/04/2025 9:[address] [facility] Work Phone: Carcinoembryonic Ag [Mass/volume] in Serum or Plasma CARCINOEMBRYONIC ANTIGEN Lab Routine Duodenal cancer (HCC) 05/18/2025 9:[address] [facility] Work Phone: Carcinoembryonic Ag [Mass/volume] in Serum or Plasma CARCINOEMBRYONIC ANTIGEN Lab Routine Duodenal cancer (HCC) 06/01/2025 10:50 AM EDT [facility] Work Phone: End: 04-09-2026 CBC W Auto Differential panel - Blood COMPLETE BLOOD COUNT AND DIFFERENTIAL Lab Routine Duodenal cancer (HCC) Every other week for 24 Occurrences starting 04/09/2025 until 04/09/2026 [facility] Comment on above: Every other week for 24 Occurrences star maria antonia 04/09/2025 until 04/09/2026 End: 05-19-2026 CBC W Auto Differential panel - Blood COMPLETE BLOOD COUNT AND DIFFERENTIAL Lab Routine Duodenal adenocarcinoma (HCC) Every other week for 3 Occurrences starting 05/19/2025 until 05/19/2026 [facility] Work Phone: Comment on above: Every other week for 3 Occurrences start ing 05/19/2025 until 05/19/2026 End: 04-09-2026 Comprehensive metabolic 2000 panel - Serum or Plasma COMPREHENSIVE METABOLIC PANEL Lab Routine Duodenal cancer (HCC) Every other week for 24 Occurrences starting 04/09/2025 until 04/09/2026, 1 completed [facility] Comment on above: Every other week for 24 Occurrences meagan em 04/09/2025 until 04/09/2026, 1 completed End: 05-19-2026 Comprehensive metabolic 2000 panel - Serum or Plasma COMPREHENSIVE METABOLIC PANEL Lab Routine Duodenal adenocarcinoma (HCC) Every other week for 3 Occurrences starting 05/19/2025 until 05/19/2026 [facility] Comment on above: Every other week for 3 Occurrences start ing 05/19/2025 until 05/19/2026 End: 03-27-2026 CT Abdomen and Pelvis W contrast IV CT ABD/PEL W IVCON Radiology Routine Intra-abdominal and pelvic swelling, mass and lump, unspecified site 1 Occurrences starting 02/25/2025 until 03/27/2026 [facility] Comment on above: 1 Occurrences starting 02/25/2025 until 03/27/2026 End: 03-27-2026 CT Chest W contrast IV CT CHEST W IVCON Radiology Routine 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) 1 Occurrences starting 02/25/2025 until 03/27/2026 [facility] Work Phone: Comment on above: 1 Occurrences starting 02/25/2025 until 03/27/2026 End: 02-26-2026 ECG COMPLETE ECG COMPLETE ECG Routine Preoperative examination 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) Intra-abdominal and pelvic swelling, mass and lump, unspecified site 1 Occurrences starting 02/26/2025 until 02/26/2026 [facility] Comment on above: 1 Occurrences starting 02/26/2025 until 02/26/2026 End: 05-07-2026 Ferritin [Mass/volume] in Serum or Plasma FERRITIN Lab Routine Iron deficiency anemia due to chronic blood loss Every 6 weeks for 2 Occurrences starting 05/07/2025 until 05/07/2026 [facility] Comment on above: Every 6 weeks for 2 Occurrences starting 05/07/2025 until 05/07/2026 End: 05-07-2026 Iron and Iron binding capacity panel - Serum or Plasma IRON AND TIBC Lab Routine Iron deficiency anemia due to chronic blood loss Every 6 weeks for 2 Occurrences starting 05/07/2025 until 05/07/2026 [facility] Work Phone: Comment on above: Every 6 weeks for 2 Occurrences starting 05/07/2025 until 05/07/2026 Laps abd prtm&omentu m dx w/wo spec br/wa spx LAPAROSCOPY DIAGNOSTIC Preoperative examination 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) Intra-abdominal and pelvic swelling, mass and lump, unspecified site [facility] End: 03-28-2026 MR Liver WO and W contrast IV MRI LIVER WO/W IVCON Radiology Routine Liver mass 1 Occurrences starting 02/26/2025 until 03/28/2026 [facility] Comment on above: 1 Occurrences starting 02/26/2025 until 03/28/2026 MR Liver WO and W contrast IV MRI LIVER WO/W IVCON Radiology Routine Liver mass 03/07/2025 11:33 AM EDT [facility] Work Phone: End: 09-27-2026 OCT MACULA CIRRUS OU (BOTH EYES) OCT MACULA CIRRUS OU (BOTH EYES) OPHT Imaging Routine Central serous chorioretinopathy, left eye CNVM (choroidal neovascular membrane), left Nuclear sclerosis of both eyes 1 Occurrences starting 04/05/2025 until 09/27/2026 [facility] Work Phone: Comment on above: 1 Occurrences starting 04/05/2025 until 09/27/2026 End: 11-01-2026 OCT MACULA CIRRUS OU (BOTH EYES) OCT MACULA CIRRUS OU (BOTH EYES) OPHT Imaging Routine Central serous chorioretinopathy, left eye CNVM (choroidal neovascular membrane), left Nuclear sclerosis of both eyes 1 Occurrences starting 05/10/2025 until 11/01/2026 [facility] Work Phone: Comment on above: 1 Occurrences starting 05/10/2025 until 11/01/2026 Pncrtect prox stot w/pancreatojejunostomy WHIPPLE PROCEDURE, WITH PANCREATOJEJUNOST Preoperative examination 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) Intra-abdominal and pelvic swelling, mass and lump, unspecified site [facility] REFER FOR ADMIT INTERVIEW REFER FOR ADMIT INTERVIEW Procedures Routine Preoperative examination 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) Intra-abdominal and pelvic swelling, mass and lump, unspecified site Ordered: 02/26/2025 [facility] Work Phone: Comment on above: Ordered: 02/26/2025 REFERRAL FOR ADDITIO NAL BIOMARKER AND MOLECULAR TESTING REFERRAL FOR ADDITIONAL BIOMARKER AND MOLECULAR TESTING Lab Routine Primary adenocarcinoma of ampulla of Vater (HCC) 03/18/2025 8:30 PM EDT [facility] Work Phone: Stroke after atrial fibrillation 5 year risk [#] Robert 2002 IR PORTOCATH PLACEMENT Radiology Routine Duodenal cancer (HCC) Ordered: 04/09/2025 [facility] Comment on above: Ordered: 04/09/2025 End: 05-19-2026 Thyrotropin [Units/volume] in Serum or Plasma THYROID STIMULATING HORMONE Lab Routine Duodenal adenocarcinoma (HCC) Malaise and fatigue Every other week for 3 Occurrences starting 05/19/2025 until 05/19/2026 [facility] Comment on above: Every other week for 3 Occurrences start ing 05/19/2025 until 05/19/2026 [facility] Immunizations Immunization Date Immunization Notes Care Provider Rosaura scott 08-21-2024 influenza virus vaccine, unspecified formulation Belgica Landrum MD Work Phone: [facility] 08-12-2023 influenza (aIIV4) vaccine, age 65+ yr, quadrivalent, PF (FLUAD QUAD) Giana Carpenter MD Work Phone: [facility] 08-12-2023 influenza virus vaccine, unspecified formulation Giana Carpenter MD Work Phone: [facility] 10-26-2020 COVID-19 original vaccine, full dose, monovalent (MODERNA) Giana Carpenter MD Work Phone: [facility] 09-28-2020 COVID-19 original vaccine, full dose, monovalent (MODERNA) Giana Carpenter MD Work Phone: [facility] 08-07-2018 influenza, injectabl e, quadrivalent, preservative free Giana Carpenter MD Work Phone: [facility] 09-07-2015 influenza virus vaccine, split virus (incl. purified surface antigen) Leif Carias Other [employer] Other 09-07-2015 influenza virus vaccine, unspecified formulation Giana Carpenter MD Work Phone: [facility] 09-07-2015 influenza, seasonal, injectable, preservative free Giana Carpenter MD Work Phone: [facility] 09-07-2015 pneumococcal conjuga te vaccine, 13 valent Giana Carpenter MD Work Phone: [facility] 09-07-2015 zoster vaccine, live Giana vasquez MD Work Phone: [facility] Payers Date Payer Category Payer Medicaid AETNA MEDICARE A DVANTAGE [id number] 2019 Medicare AETNA MEDICARE A ETNA MEDICARE PPO [id number] 2019-Present [phone] [address] [place] [address] PPO [id number] 2019 Medicare [id number] 2019 Medicare (Managed Care) [id number] 1959 Medicare [id number] 1959 Medicare [id number] 1954 Unknown [id number] 1954 Unknown [id number] 1954 Unknown [id number] 1954 Unknown [id number] 1954 Unknown [id number] 1954 Unknown [id number] Social History Date Type Detail Facility Start: 04-27-2013 End: 03-05-2025 Tobacco smoking status NHIS Never smoked tobacco [facility] Start: 03-20-2022 End: 06-07-2025 Alcohol intake Current drinker of alcohol (finding) [facility] Start: 03-20-2022 End: 03-05-2025 Alcohol intake [facility] Start: 1955 Sex Assigned At Not on file C [facility] Start: 03-10-2022 End: 03-20-2022 Exposure to SARS-CoV-2 (event) Not sure [facility] Start: 03-20-2022 End: 03-05-2025 Sex Assigned At [facility] Start: 04-27-2013 End: 03-05-2025 Tobacco use and exposure Smokeless tobacco non-user [facility] Start: 08-24-2012 Adult Depression Screening Assessment 0 [facility] Start: 03-14-2023 Alcohol Comment Caffeine intake: non e [employer] Has the [employer], or water Schmoo[employer] threatened to shut off services in your home in past 12Mo No [facility] (I/We) worried wheth er (my/our) food would run out before (I/we) got money to buy more. Never true [facility] NEGATED: Highlighted rowStart: NINF History of tobacco use Passive smoker [facility] Medical Equipment Procedure Code Equipment Code Equipment Origin al Text Equipment Identifier Dates Power Injectable Vaccess Ct Plastic 8f Chronoflex Catheter With Kit - [id number] Start: 04-16-2025 Functional Status Date Assessment Result Facility 03-25-2025 Are you deaf, or do you have serious difficulty hearing No 03/25/2025 10:18 AM EDT Jovana Briones RN No [facility] 03-25-2025 Are you blind, or do you have serious difficulty seeing, even when wearing glasses No 03/25/2025 10:18 AM EDJovana Neal RN No [facility] 03-25-2025 Do you have serious difficulty walking or climbing stairs No 03/25/2025 10:18 AM EDT Jovana Briones RN No [facility] 03-25-2025 Do you have difficul ty dressing or bathing No 03/25/2025 10:18 AM KENT Jovana Briones RN No [facility] 03-25-2025 Because of a physica l, mental, or emotional condition, do you have difficulty doing errands alone such as visiting a physician's office or shopping No 03/25/2025 10:18 AM EDT Jovana Briones RN No [facility] 01-11-2015 Are you deaf, or do you have serious difficulty hearing No 01/11/2015 1:18 PM Amber Schmidt LPN No [facility] 01-11-2015 Are you blind, or do you have serious difficulty seeing, even when wearing glasses No 01/11/2015 1:18 PM Amber Schmidt LPN No [facility] 01-11-2015 Do you have serious difficulty walking or climbing stairs No 01/11/2015 1:18 PM KENT Amber Pleitez LPN No [facility] 01-11-2015 Do you have difficul ty dressing or bathing No 01/11/2015 1:18 PM Amber Schmidt LPN No [facility] 01-11-2015 Because of a physica l, mental, or emotional condition, do you have difficulty doing errands alone such as visiting a physician's office or shopping No 01/11/2015 1:18 PM Amber Schmidt LPN No [facility] Mental Status Date Assessment Result Facility 03-25-2025 Because of a physica l, mental, or emotional condition, do you have serious difficulty concentrating, remembering, or making decisions No 03/25/2025 10:18 AM Jovana Rowan RN No [facility] 01-11-2015 Because of a physica l, mental, or emotional condition, do you have serious difficulty concentrating, remembering, or making decisions No 01/11/2015 1:18 PM Amber Schmidt LPN No [facility] Clinical Notes 03-20-2022 to 06-30-2025 Belgica Landrum MD - 06/07/2025 11:03 AM Belgica Vega MD - 06/07/2025 11:02 AM EDTPatient InstructionsTaItzel velasquez LISW - 06/04/2025 5:02 PM EDTPatient Instructions Note Date & Type Note Facility 06-30-2025 Note [facility] 06-30-2025 Note [facility] 06-29-2025 Note [facility] 06-29-2025 Note [facility] 06-15-2025 Note [facility] 06-15-2025 Note [facility] 06-07-2025 Note [facility] 06-07-2025 History of Present illness Narrative Assessment/Plan: Last dilated 06/07/2025 69 year old female presents for evaluation of wavy lines in the left eye. She lives in [place] and travel to [facility] every 4 weeks with her for appointments. She had a Whipple procedure at the end of January 2025. Subjectively her metamorphopsia has resolved. She needs records sent to to [place] [facility] if she is to continue injections past the end of May. 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 - Signs and symptoms of endophthalmitis reviewed with pt. - Patient wishes to proceed with Avastin # Family history of AMD Mother with wet AMD Brother with history of eye injection, diagnosis unknown # Duodenal cancer # sp Whipple procedure 03/17/2025 No chemotherapy treatments Follow-up 6 to 7 weeks in [place] I have confirmed and edited as necessary the relevant ophthalmic history, ROS, and the neuro exam findings as obtained by others. I have discussed the case and the management of this patient's care with the Resident/Fellow, if applicable. I also have reviewed and agree with the assessment and plan as stated above and agree with all of its relevant components. Belgica Landrum MD 69 year old female presents for evaluation of wavy lines in the left eye. She lives in [place] and travel to [facility] every 4 weeks with her for appointments. She had a Whipple procedure at the end of January 2025. Subjectively her metamorphopsia remains resolved. She needs records sent to to [place] [facility] if she is to continue injections past the end of May (returns to [facility] end of 06/2025). 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 - Signs and symptoms of endophthalmitis reviewed with pt. 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 I have discussed the case and the management of this patient's care with the Resident/Fellow, if applicable. I also have reviewed and agree with the assessment and plan as stated above and agree with all of its relevant components. Belgica Landrum MD documented in this encounter [facility] 06-07-2025 Note [facility] 06-07-2025 Note Date of Procedure 06/07/2025. OCT Macula Interpretation Right Eye Normal foveal contour. Findings include Negative for Intraretinal fluid. Left Eye Normal foveal contour. Findings include Negative for Intraretinal fluid. Interval Change Right Eye Stable. Left Eye Stable. [facility] 06-07-2025 Note Date of Procedure 06/07/2025 [place] Protocol Safety Checklist A moment of CARE was completed Sign In Sign in communication not applicable due to emergent procedure. Personnel directly involved with the procedure wore the appropriate PEE. Special Equipment: N/A. Patient/surrogate stated/verified patient name, date of , relevant allergies, intended procedure. Provider Confirms: Relevant labs, photos, and/or imaging studies have been reviewed. Intended patient and procedure match the source document(s) (e.g. consent, associated studies [imaging, pathology]). Consent obtained and matches the intended procedure. Correct side/site marked and visible. Medications required for procedure verified. Fire risk assessed and interventions discussed: N/A. Correct implant(s) confirmed including size and side: N/A. Sign Out All specimens are correctly labeled and sent: N/A. All instruments, equipment, possible retained foreign bodies accounted for. Post-procedure POC communicated to patient or surrogate. Post-procedure POC communicated to patient's multidisciplinary team: N/A. Anesthesia 2-4 drops Tetracaine 0.5%, Topical 4% Lidocaine on cotton swabs. Prep 5% Betadine. Injection Administration Medication: 1.25 mg bevacizumab ophthalmic 1.25 mg/0.05 mL Route: INTRAVITREAL, Site: Left Balance Wasted Residual medication less than 1 unit was discarded. Anterior Chamber Paracentesis No. Post Injection Evaluation Patient has at least hand motion vision. Post Procedure Medications None. Home Going Prescription None. [facility] 06-07-2025 Instructions Nanda Laguna RN - 06/07/2025 10:06 AM EDT Post Injection Patient Information You had eye injection(s) today. These are your after injection instructions. Today: Preservative free artificial tears 1 drop every hour while awake as needed Tomorrow: Preservative free artificial tears 1 drop every 2 hours while awake as needed Care instructions after eye injections: Do not rub or touch your eye other than dabbing lightly with a tissue An [id number]-[id number] pain reliever (i.e. Tylenol) can be used for mild soreness Use artificial tears/lubricating drops once an hour as needed for comfort (chill the tears in the refrigerator for more comfort). If you are using the tears more than 4 times a day they need to be the preservative free kind Warm or cool compresses are okay It is okay to shower and wash your face. No swimming pools or saunas for 24 hours COMMON symptoms after successful eye injections: Mild to moderate pain or irritation beginning the day of the injection. This should begin to improve the following day. Eyelash in the eye or vick/gritty sensation Tearing Mild floaters or bubbles in your vision - usually resolves after 1-2 days Bloody tears for 1-2 days after treatment Eye Redness Also known as subconjunctival hemorrhage This bruise can cover the entire white part of the eye and may last a few weeks CONCERNING symptoms after eye injections: Severe, constant pain Worsening pain after the first day Decreased vision Severe, constant floaters Curtain or veil in your vision New eye redness that was not there after the injection and covers the whole eye Please call the office immediately for any of the above listed concerning symptoms or with any other questions. If it is after hours please call [phone] which will give instructions on how to reach the eye doctor employee relations director documented in this encounter [facility] 06-04-2025 Note [facility] 06-04-2025 History of Present illness Narrative SOCIAL WORK FOLLOW UP NOTE: CANCER CENTER Date of service: June 01, 2025 Silvana Gómez is being seen for a follow up social work visit. Today's visit includes: spouse and patient TOPICS ADDRESSED: I met with Silvana and her during her treatment. Both are coping well. Today we discussed that we were able to have her pump removed in [place], [place]. She and her are most pleased as it is only twenty minutes from their home. They deny any other social work needs. They anticipate returning to [place] at some point then returning to [place] in the spring, 2025. PLAN: To continue to assess emotional well being and assist with concrete needs. F/U APPOINTMENT: 2 weeks Assigned SW listed in Care Team tab: Yes SHAYNA Caceres-S Pager #[phone] documented in this encounter [facility] 06-04-2025 Telephone encounter Note Care Coordination Triage Note [facility] Situation: Patient reports Mouth pain/Mucositis Background: Pt with dx of duodenal cancer, currently on treatment with Folfox/Atezo with last treatment on 06/01/25 Assessment: Returned call to pt. She states that yesterday she noticed white coating on her tongue and this happened after last cycle as well. She has been doing salt rinses (doesn't have baking soda at home currently) as well as using an OTC product (cannot remember the name). Denies any sores elsewhere, not interfering with her ability to eat/drink. Would benefit from Nystatin to treat presumed thrush, will request care team send in RX to pt's [facility] on file. Recommendations: Per RNCC, patient directed to: Manage at home. Instructions provided. Lori Tran RN [facility] 06-04-2025 Miscellaneous Notes Care Coordination Triage Note [facility] [place] Situation: Patient reports Mouth pain/Mucositis Background: Pt with dx of duodenal cancer, currently on treatment with Folfox/Atezo with last treatment on 06/01/25 Assessment: Returned call to pt. She states that yesterday she noticed white coating on her tongue and this happened after last cycle as well. She has been doing salt rinses (doesn't have baking soda at home currently) as well as using an OTC product (cannot remember the name). Denies any sores elsewhere, not interfering with her ability to eat/drink. Would benefit from Nystatin to treat presumed thrush, will request care team send in RX to pt's [facility] on file. Recommendations: Per RNCC, patient directed to: Manage at home. Instructions provided. Lori Tran RN Silvana Gómez is calling Ben Medellin MD today regarding 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 Specialist - Other (symptoms) Patient called to inform that her tongue is white and it has been getting worse over the past couple of days. Would like a call back to discuss next steps. Patient has been identified by name and birthdate. Requesting response back: [phone] (home) [phone] (cell) Claudine Brooks June 04, 2025 documented in this encounter [facility] 06-04-2025 Telephone encounter Note Silvana Gómez is calling Ben Medellin MD today regarding 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 Specialist - Other (symptoms) Patient called to inform that her tongue is white and it has been getting worse over the past couple of days. Would like a call back to discuss next steps. Patient has been identified by name and birthdate. Requesting response back: [phone] (home) [phone] (cell) Claudine Brooks June 04, 2025 [facility] 06-01-2025 History of Present illness Narrative Images from the original note were not included. ATTENDING PHYSICIAN: Dr. Ben Medellin DATE OF SERVICE: 06/01/2025 DIAGNOSIS: [id number] duodenal adenocarcinoma BIOMARKERS: Mismatch Repair: Deficient, loss of MLH1 and PMS2 MSI: High DPYD Normal UGT Normal PRIOR TREATMENT: 03/17/25: Exploratory laparotomy with an appendectomy, excisional biopsy of 2 liver masses, as well as an open classic pancreatic duodenectomy with pancreatico jejunostomy hepaticojejunostomy and gastrojejunostomy. HISTORY OF PRESENT ILLNESS: 70-year-old female patient with a past medical history of GERD, hyperlipidemia, hypothyroidism, SVT, breast ductal carcinoma status post lumpectomy with reexcision for margins followed by radiation (completed tamoxifen 9 years ago) She had unexplained fevers in September and increasing epigastric fullness with right upper quadrant and back pressure. Right upper quadrant ultrasound at that point showed liver cysts, biliary sludge and CBD dilation. Given atypical symptoms, she had a CT of her abdomen hat showed a duodenal mass with intrahepatic ductal dilation and common bile duct dilation with irregular circumferential ampullary thickening. She had an EGD on 03/01/2025 that showed a mass in D2 extending for 3 cm semicircumferential 30 more than 50% of the lumen. She saw Dr. Cardeans on 03/[address] abdomen showing a stable 4 cm D2/D3 duodenal mass with circumferential wall thickening, stable biliary dilation, hazy soft tissue stranding along the hepatic hilum surrounding common hepatic hepatic artery and celiac. Stable enlarged likely metastatic and centrally necrotic peripancreatic lymph nodes with indeterminate hepatic lesions. CT chest with no metastatic disease. MRI of the liver on 03/07/2025 showed an irregular masslike thickening 5 cm involving the duodenum with peripancreatic regional lymphadenopathy. Hepatic lesions turned out to be simple cystic masses. She had an exploratory laparotomy with an appendectomy, excisional biopsy of 2 liver masses, as well as an open classic pancreatic duodenectomy with pancreatico jejunostomy hepaticojejunostomy and gastrojejunostomy. Liver biopsies came back as benign calcified nodules, and bile duct hamartomas. 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 Negative margins. Grade 3. pT4 N1 disease. 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 CURRENT THERAPY: May 04, 2025 - present -- Adjuvant FOLFOX/atezolizumab INTERVAL HISTORY: Patient returns for cycle 3 of FOLFOX/Atezo. She admits anorexia. She had more nausea and took Zofran 4 mg as needed. Admits fatigue. She anticipates travelling back to [place] in June. REVIEW OF SYSTEMS: Review of at least 10 systems is negative or per HPI PHYSICAL EXAM: ECOG 1 LMP 09/23/2012 GENERAL: Elderly female in no acute distress, ambulatory. Accompanied by her . EYES: Non-icteric; no lid-lag or proptosis. HENT: Normocephalic. Atraumatic. NECK: Trachea midline. RESPIRATORY: Normal respiratory effort. EXTREMITIES: Without edema. SKIN: Warm and dry. Without erythema, rash, callus, or blister. No pallor or jaundice. MSK: Normal gait. PSYCH: Conversational with normal affect. Alert and oriented to person, place and time. LABS: Latest Ref Rng & Units 06/01/2025 CBC WBC 3.70 - 11.00 k/uL 2.66 RBC 3.90 - 5.20 m/uL 4.20 Hemoglobin 11.5 - 15.5 g/dL 11.7 Hematocrit 36.0 - 46.0 % 35.8 MCV 80.0 - 100.0 fL 85.2 MCH 26.0 - 34.0 pg 27.9 MCHC 30.5 - 36.0 g/dL 32.7 RDW-CV 11.5 - 15.0 % 17.9 Platelet Count 150 - 400 k/uL 139 MPV 9.0 - 12.7 fL 8.9 Baso% % 0.4 Abs Neut (ANC) 1.45 - 7.50 k/uL 1.39 Abs Lymph 1.00 - 4.00 k/uL 0.83 Abs [place] <0.87 k/uL 0.35 Abs Eosin <0.46 k/uL 0.07 Abs Baso <0.11 k/uL <0.03 NRBC /100 WBC 0.0 Latest Ref Rng & Units 06/01/2025 CMP Sodium 136 - 144 mmol/L 141 Potassium 3.7 - 5.1 mmol/L 4.0 Chloride 98 - 107 mmol/L 105 CO2 22 - 30 mmol/L 24 Glucose 74 - 99 mg/dL 135 BUN 7 - 21 mg/dL 6 Creatinine 0.58 - 0.96 mg/dL 0.54 EGFR >=60 mL/min/1.73m 99 Protein, Total 6.3 - 8.0 g/dL 6.4 Albumin 3.9 - 4.9 g/dL 4.1 Calcium 8.5 - 10.2 mg/dL 9.1 Bilirubin, Total 0.2 - 1.3 mg/dL 0.4 AST 13 - 35 U/L 54 ALT 7 - 38 U/L 43 Alkaline Phosphatase 34 - 123 U/L 108 IMPRESSION: Ms. 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 We discussed adjuvant chemotherapy with 6 months of FOLFOX to decrease risk of recurrence in high risk stage III disease. We also discussed the recent findings from the ATOMIC trial for MSI-H colon cancer where addition of Atezolizumab to FOLFOX had a 3 year DFS of 86.4% vs 76.6% in the chemotherapy alone arm. We discussed that given the rarity of duodenal cancer as compared to colon cancer, the results from colon cancer trials are usually extrapolated to small bowel cancers. Initiated adjuvant FOLFOX/atezolizumab on 05/04/25. PLAN: 1. GI ONCOLOGY: - Mrs. Gómez returns for Cycle 3 of FOLFOX/atezolizumab. - Patient had manageable toxicity overall. Primary concern is appetite/weight loss. Increased Zofran to 8 mg. - CBC is adequate for therapy. - CMP is notable for improvement in ALT/AST. - TSH is 14.4 Will increase levothyroxine from 75 mcg to 100 mcg. - No dose-limiting toxicities. - Proceed with C3as planned, without changes. - Return in two weeks. - She plans to shift her care to [place] (Dr. Walker) in June. - Mrs. Gómez will call with any problems or concerns. All documentation from previous visit of Demetrius Gallagher 05/18/25 was copied and pasted, documentation has been reviewed and edited as necessary for today's visit. Salud Falcon PA-C documented in this encounter [facility] 06-01-2025 Note [facility] 05-26-2025 Telephone encounter Note Returned call and spoke to pt. Care Coordination Triage Note [facility] [place] Situation: Patient reports Other update in condition Background: Cancr of the duodenum. Last tretment on 05/18 of Atezolizumab, 5 fU, and Oxailpltin per Dr Medellin. Assessment: Pt called with update following yesterdays conversation regarding diarrhea. She reported she slept through the night and has had only 3 episodes of diarrhea today and continues to take the Imodium as needed. Overall,feeling much better. She hs not increased the Zofran,continues to take 4 mg with relief. tated concern with feeling the flutter from the SVT diagnosis. No changes in medication, will continue to monitor. Recommendations: Per nursing judgement, patient directed to: Manage at home. Instructions provided. Alem Rodriguez RN May 26, 2025 4:00 PM [facility] Work Phone: 05-26-2025 Miscellaneous Notes Returned call and spoke to pt. Care Coordination Triage Note [facility] Situation: Patient reports Other update in condition Background: Cancr of the duodenum. Last tretment on 05/18 of Atezolizumab, 5 fU, and Oxailpltin per Dr Medellin. Assessment: Pt called with update following yesterdays conversation regarding diarrhea. She reported she slept through the night and has had only 3 episodes of diarrhea today and continues to take the Imodium as needed. Overall,feeling much better. She hs not increased the Zofran,continues to take 4 mg with relief. tated concern with feeling the flutter from the SVT diagnosis. No changes in medication, will continue to monitor. Recommendations: Per nursing judgement, patient directed to: Manage at home. Instructions provided. Alem Rodriguez RN May 26, 2025 4:00 PM Silvana Gómez is calling Ben Medellin MD today regarding 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 Specialist - Other (Symptom update) Patient called to update Alem on how she is feeling today. States she feels better than yesterday, she still has diarrhea but it is more controlled. States she has SVT and it is beginning to bother her - thinks it may be related to treatment. Would like a call back. Patient has been identified by name and birthdate. Requesting response back: [phone] (home) [phone] (cell) Claudine Brooks May 26, 2025 documented in this encounter [facility] 05-26-2025 Telephone encounter Note Silvana Gómez is calling Ben Medellin MD today regarding 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 Specialist - Other (Symptom update) Patient called to update Alem on how she is feeling today. States she feels better than yesterday, she still has diarrhea but it is more controlled. States she has SVT and it is beginning to bother her - thinks it may be related to treatment. Would like a call back. Patient has been identified by name and birthdate. Requesting response back: [phone] (home) [phone] (cell) Claudine Brooks May 26, 2025 [facility] 05-25-2025 Telephone encounter Note Care Coordination Triage Note [facility] [place] Situation: Patient reports Bowel symptoms, diarrhea Background: Neoplasm of duodenum. Last treatment on 05/18 with 5FU and Oxaliplatin per Dr Medellin. Assessment: Returned call and spoke to pt. Pt reported having diarrhea for 3 days, yesterday started taking Imodium, took 5. Up every other hour during the night with more diarrhea. Nausea is constant. Eating small amounts of food, not much of an appetite. Discussed Imodium usage, up to 8 per day as needed for diarrhea. Took 2 Imodium at 7:30 this morning, no diarrhea episodes since. Ate breakfast. May take 8 mg Zofran every 8 hours, checking with pharmacy regarding the Reglan. Discussed diet, enc foods known to bind stool together. Discussed taking the Zofran every 8 hours or the Compazine every 6 hours. Pt stated she has bot noticed a change in the nausea with the Reglan. Recommendations: Per nursing judgement, patient directed to: Manage at home. Instructions provided. Verbal understanding received. Alem Rodriguez RN May 25, 2025 10:34 AM [facility] Work Phone: 05-25-2025 Miscellaneous Notes Care Coordination Triage Note [facility] [place] Situation: Patient reports Bowel symptoms, diarrhea Background: Neoplasm of duodenum. Last treatment on 05/18 with 5FU and Oxaliplatin per Dr Medellin. Assessment: Returned call and spoke to pt. Pt reported having diarrhea for 3 days, yesterday started taking Imodium, took 5. Up every other hour during the night with more diarrhea. Nausea is constant. Eating small amounts of food, not much of an appetite. Discussed Imodium usage, up to 8 per day as needed for diarrhea. Took 2 Imodium at 7:30 this morning, no diarrhea episodes since. Ate breakfast. May take 8 mg Zofran every 8 hours, checking with pharmacy regarding the Reglan. Discussed diet, enc foods known to bind stool together. Discussed taking the Zofran every 8 hours or the Compazine every 6 hours. Pt stated she has bot noticed a change in the nausea with the Reglan. Recommendations: Per nursing judgement, patient directed to: Manage at home. Instructions provided. Verbal understanding received. Alem Rodriguez RN May 25, 2025 10:34 AM Silvana Gómez('s) is calling Ben Medellin MD today regarding Diarrhea Patient has been identified by name and birthdate. Patient called stated she has had diarrhea for several days would like a call back. Requesting response back: [phone] (home) [phone] (cell) Iza Ford May 25, 2025 documented in this encounter [facility] 05-25-2025 Telephone encounter Note Silvana Gómez('s) is calling Ben Medellin MD today regarding Diarrhea Patient has been identified by name and birthdate. Patient called stated she has had diarrhea for several days would like a call back. Requesting response back: [phone] (home) [phone] (cell) Iza Ford May 25, 2025 [facility] 05-21-2025 Note [facility] 05-21-2025 History of Present illness Narrative SOCIAL WORK FOLLOW UP NOTE: CANCER CENTER Date of service: May 20, 2025 Silvana Gómez is being seen for a follow up social work visit. Today's visit includes: patient and spouse TOPICS ADDRESSED: I met with Bravo and her during her treatment. She is coping well and remains well supported. We discussed her concerns with regard to weight loss-she has not met with an out-patient cableman. I strongly encouraged that meeting. We also discussed that it would be a great benefit if she oculd get her pump disconnected at [place]. We agreed that I would staff message Dr. Medellin and Lori Tran, RN, BSN. PLAN: To continue to assess emotional well being and assist with concrete needs. F/U APPOINTMENT: 2 weeks Assigned SW listed in Care Team tab: Yes SHAYNA Caceres-S Pager #[phone] documented in this encounter [facility] 05-18-2025 Note [facility] 05-18-2025 History of Present illness Narrative ATTENDING PHYSICIAN: Dr. Ben Medellin DATE OF SERVICE: May 18, 2025 DIAGNOSIS: [id number] duodenal adenocarcinoma BIOMARKERS: Mismatch Repair: Deficient, loss of MLH1 and PMS2 MSI: High DPYD Normal UGT Normal PRIOR TREATMENT: 03/17/25: Exploratory laparotomy with an appendectomy, excisional biopsy of 2 liver masses, as well as an open classic pancreatic duodenectomy with pancreatico jejunostomy hepaticojejunostomy and gastrojejunostomy. HISTORY OF PRESENT ILLNESS: 70-year-old female patient with a past medical history of GERD, hyperlipidemia, hypothyroidism, SVT, breast ductal carcinoma status post lumpectomy with reexcision for margins followed by radiation (completed tamoxifen 9 years ago) She had unexplained fevers in September and increasing epigastric fullness with right upper quadrant and back pressure. Right upper quadrant ultrasound at that point showed liver cysts, biliary sludge and CBD dilation. Given atypical symptoms, she had a CT of her abdomen hat showed a duodenal mass with intrahepatic ductal dilation and common bile duct dilation with irregular circumferential ampullary thickening. She had an EGD on 03/01/2025 that showed a mass in D2 extending for 3 cm semicircumferential 30 more than 50% of the lumen. She saw Dr. Cardenas on 03/[address] abdomen showing a stable 4 cm D2/D3 duodenal mass with circumferential wall thickening, stable biliary dilation, hazy soft tissue stranding along the hepatic hilum surrounding common hepatic hepatic artery and celiac. Stable enlarged likely metastatic and centrally necrotic peripancreatic lymph nodes with indeterminate hepatic lesions. CT chest with no metastatic disease. MRI of the liver on 03/07/2025 showed an irregular masslike thickening 5 cm involving the duodenum with peripancreatic regional lymphadenopathy. Hepatic lesions turned out to be simple cystic masses. She had an exploratory laparotomy with an appendectomy, excisional biopsy of 2 liver masses, as well as an open classic pancreatic duodenectomy with pancreatico jejunostomy hepaticojejunostomy and gastrojejunostomy. Liver biopsies came back as benign calcified nodules, and bile duct hamartomas. 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 Negative margins. Grade 3. pT4 N1 disease. 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 CURRENT THERAPY: May 04, 2025 - present -- Adjuvant FOLFOX/atezolizumab INTERVAL HISTORY: Mrs. Gómez returns in anticipation of Cycle 2 of adjuvant FOLFOX/atezo. She comments that she received word from her insurance regarding her atezolizumab approval. Energy level: Some fatigue with treatment, but trying to stay active. Had a good day yesterday and comments that she walked two miles. Appetite: Decreased. PO intake fairly good. Drinking nutritional supplements. Weight is down three pounds. Reports some missed doses of Viokace, intermittent fatty stools. Nausea/vomiting: Persistent issues with mild nausea throughout cycle. Maintains on metoclopramide since surgery. Typically uses ondansetron daily (and prochlorperazine on the days after treatment where she can't dose ondansetron). Mucositis: None BMs: Had about three days of diarrhea following therapy, which was controlled with prn loperamide. Had a random episode of diarrhea this morning. Pain: None Denies fevers, chills, SOB, chest pain, cough, rash, and swelling. Neuropathy: Cold sensitivity lasted about one week with eating/drinking. Didn't really notice in the hands/feet. Denies non cold-related neuropathy. REVIEW OF SYSTEMS: Review of at least 10 systems is negative or per HPI PHYSICAL EXAM: ECOG 1 BP 97/64 Pulse 62 Temp 36.5 C (97.7 F) (Temporal) Resp 16 Wt 50.4 kg (111 lb 1.8 oz) LMP 09/23/2012 SpO2 100% BMI 18.83 kg/m GENERAL: Elderly female in no acute distress, ambulatory. Accompanied by her . EYES: Non-icteric; no lid-lag or proptosis. HENT: Normocephalic. Atraumatic. NECK: Trachea midline. RESPIRATORY: Normal respiratory effort. EXTREMITIES: Without edema. SKIN: Warm and dry. Without erythema, rash, callus, or blister. No pallor or jaundice. MSK: Normal gait. PSYCH: Conversational with normal affect. Alert and oriented to person, place and time. LABS: Hemoglobin (g/dL) Date Value 05/18/2025 12.5 01/11/2015 14.9 Hematocrit (%) Date Value 05/18/2025 36.5 01/11/2015 43.7 WBC (k/uL) Date Value 05/18/2025 3.89 01/11/2015 5.30 Platelet Count (k/uL) Date Value 05/18/2025 155 01/11/2015 229 Latest Ref Rng 05/18/2025 WBC 3.70 - 11.00 k/uL 3.89 RBC 3.90 - 5.20 m/uL 4.44 Hemoglobin 11.5 - 15.5 g/dL 12.5 Hematocrit 36.0 - 46.0 % 36.5 MCV 80.0 - 100.0 fL 82.2 MCH 26.0 - 34.0 pg 28.2 MCHC 30.5 - 36.0 g/dL 34.2 RDW-CV 11.5 - 15.0 % 17.5 (H) Platelet Count 150 - 400 k/uL 155 MPV 9.0 - 12.7 fL 9.2 Neut% % 62.0 Abs Neut (ANC) 1.45 - 7.50 k/uL 2.41 Lymph% % 20.8 Abs Lymph 1.00 - 4.00 k/uL 0.81 (L) [place]% % 12.6 Abs [place] <0.87 k/uL 0.49 Eosin% % 2.6 Abs Eosin <0.46 k/uL 0.10 Baso% % 0.5 Abs Baso <0.11 k/uL <0.03 Immature Gran % % 1.5 IMMATURE GRANS (ABS) <0.10 k/uL 0.06 NRBC /100 WBC 0.0 Absolute nRBC <0.01 k/uL <0.01 DTYPE Auto Protein, Total 6.3 - 8.0 g/dL 6.5 Albumin 3.9 - 4.9 g/dL 4.1 Calcium 8.5 - 10.2 mg/dL 9.3 Bilirubin, Total 0.2 - 1.3 mg/dL 0.3 Alkaline Phosphatase 34 - 123 U/L 109 AST 13 - 35 U/L 55 (H) ALT 7 - 38 U/L 45 (H) Glucose 74 - 99 mg/dL 101 (H) BUN 7 - 21 mg/dL 6 (L) Creatinine 0.58 - 0.96 mg/dL 0.48 (L) Sodium 136 - 144 mmol/L 140 Potassium 3.7 - 5.1 mmol/L 3.5 (L) Chloride 98 - 107 mmol/L 104 CO2 22 - 30 mmol/L 24 Anion Gap 8 - 15 mmol/L 12 eGFR >=60 mL/min/1.73m 101 IMPRESSION: Ms. 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 We discussed adjuvant chemotherapy with 6 months of FOLFOX to decrease risk of recurrence in high risk stage III disease. We also discussed the recent findings from the ATOMIC trial for MSI-H colon cancer where addition of Atezolizumab to FOLFOX had a 3 year DFS of 86.4% vs 76.6% in the chemotherapy alone arm. We discussed that given the rarity of duodenal cancer as compared to colon cancer, the results from colon cancer trials are usually extrapolated to small bowel cancers. Initiated adjuvant FOLFOX/atezolizumab on 05/04/25. PLAN: 1. GI ONCOLOGY: - Mrs. Gómez returns for Cycle 2 of FOLFOX/atezolizumab. - Patient had manageable toxicity overall. Primary concern is appetite/weight loss. Could consider olanzapine for appetite/nausea, however would need to shift away from her current metoclopramide and prochlorperazine to do so. Am hesitant to make change to her antiemetic regimen right now, but would more strongly consider if the weight loss continues. Reviewed diet/caloric intake. Also discussed her Viokase dosing, including the rationale for strict dosing, especially in the setting of weight loss. She'll focus on caloric intake and Viokase dosing. Possible olanzapine in future if weight loss continues. - CBC is adequate for therapy. - CMP is notable for improvement in ALT/AST. Has marginal hypokalemia that can be replaced via diet; dietary sources reviewed. - TSH had not been drawn. Was drawn in the treatment area and is wnl. - No dose-limiting toxicities. - Proceed with C2 as planned, without changes. - Return in two weeks. - Smartset placed for May/Jun. She plans to shift her care to [facility] (Dr. Walker) in June. Will check with Dr. Medellin if this process has been started and help coordinate, if not. - Mrs. Gómez will call with any problems or concerns. I spent a total of 40 minutes on the date of the service which included preparing to see the patient, [id number] patient care, completing clinical documentation, obtaining and/or reviewing separately obtained history, counseling and educating the patient/family/caregiver, ordering medications, tests, or procedures, communicating results to the patient/family/caregiver, and care coordination (not separately reported). Elements of this note, including HPI, ROS, Physical Exam, Assessment and Plan were copied and pasted from 05/04/[address] Medellin. Updates have been made where noted and reflect current exam and medical decision making from May 18, 2025 Demetrius Gallagher PA-C Additional intake questions: Has the patient had fever, nausea, vomiting, diarrhea, constipation, fatigue for > 1 week? Yes, fatigue, nausea, and Provider Notified Does the patient have a decreased appetite? Yes Does patient want to see a Caregivers Non Medical? No (yes to any of above refer patient to schedulers for dietitian appointment) ) Does patient have any new or increased numbness or tingling of extremities? No Is patient interested in fertility information? No Does patient need any prescription refills? No Does patient have an advanced directive in place? Yes, copies are in [employer] documented in this encounter [facility] 05-18-2025 Note [facility] 05-10-2025 Telephone encounter Note CYCLE 1/DAY 1 POST TREATMENT CALL Today's date: May 10, 2025 Treatment Regimen: [CUSTOM] AMB MODIFIED FOLFOX 6 + ATEZOLIZUMAB - ATEZOLIZUMAB 840 OXALIPLATIN 85 5FU 400 IVP D1 5FU 2400 CADD OVER 46 HRS - Q14D C1D1 Date: 05/04/2025 Called patient to follow-up on symptom management. Spoke with patient SYMPTOM ASSESSMENT Neuro: Cold sensitivity -has decreased over the past few days. CV/Resp: None GI/: Nausea -managing with current regimen- requesting refill of Zofran be sent to [facility] on file. Integument: None Activity: Patient reported decreased energy level Pain: No=0 (pain 0 on a scale of 0-10). Fever: No Chills: No Any new referrals needed? No Reinforced CURRENT treatment education based on current and anticipated symptoms. Discussed port/line care and patient verbalizes understanding: Yes Patient instructed to contact office or after hours Hematology/Oncology fellow for: temperature >= 100.4; questions or concerns. Patient verbalized understanding of when to seek medical attention and after hours number protocol. Germaine Godinez RN [facility] 05-10-2025 Miscellaneous Notes CYCLE 1/DAY 1 POST TREATMENT CALL Today's date: May 10, 2025 Treatment Regimen: [CUSTOM] AMB MODIFIED FOLFOX 6 + ATEZOLIZUMAB - ATEZOLIZUMAB 840 OXALIPLATIN 85 5FU 400 IVP D1 5FU 2400 CADD OVER 46 HRS - Q14D C1D1 Date: 05/04/2025 Called patient to follow-up on symptom management. Spoke with patient SYMPTOM ASSESSMENT Neuro: Cold sensitivity -has decreased over the past few days. CV/Resp: None GI/: Nausea -managing with current regimen- requesting refill of [facility]fr[facility] to [facility]. Integument: None Activity: Patient reported decreased energy level Pain: No=0 (pain 0 on a scale of 0-10). Fever: No Chills: No Any new referrals needed? No Reinforced CURRENT treatment education based on current and anticipated symptoms. Discussed port/line care and patient verbalizes understanding: Yes Patient instructed to contact office or after hours Hematology/Oncology fellow for: temperature >= 100.4; questions or concerns. Patient verbalized understanding of when to seek medical attention and after hours number protocol. Germaine Godinez RN documented in this encounter [facility] 05-10-2025 Note Date of Procedure 05/10/2025 [place] Protocol Safety Checklist A moment of CARE was completed Sign In Sign in communication not applicable due to emergent procedure. Personnel directly involved with the procedure wore the appropriate PEE. Special Equipment: N/A. Patient/surrogate stated/verified patient name, date of , relevant allergies, intended procedure. Provider Confirms: Relevant labs, photos, and/or imaging studies have been reviewed. Intended patient and procedure match the source document(s) (e.g. consent, associated studies [imaging, pathology]). Consent obtained and matches the intended procedure. Correct side/site marked and visible. Medications required for procedure verified. Fire risk assessed and interventions discussed: N/A. Correct implant(s) confirmed including size and side: N/A. Sign Out All specimens are correctly labeled and sent: N/A. All instruments, equipment, possible retained foreign bodies accounted for. Post-procedure POC communicated to patient or surrogate. Post-procedure POC communicated to patient's multidisciplinary team: N/A. Anesthesia 2-4 drops Tetracaine 0.5%, Topical 4% Lidocaine on cotton swabs. Prep 5% Betadine. Injection Administration Medication: 1.25 mg bevacizumab ophthalmic 1.25 mg/0.05 mL Route: INTRAVITREAL, Site: Left Balance Wasted Residual medication less than 1 unit was discarded. Anterior Chamber Paracentesis No. Post Injection Evaluation Patient has at least hand motion vision. Post Procedure Medications None. Home Going Prescription None. [facility] 05-10-2025 Instructions Belgica Landrum MD - 05/10/2025 11:02 AM EDT 69 year old female presents for evaluation of wavy lines in the left eye. She lives in [place] and travel to [facility] every 4 weeks with her for appointments. She had a Whipple procedure at the end of January 2025. Subjectively her metamorphopsia has resolved. She needs records sent to to [place] [facility] if she is to continue injections past the end of May. 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 - Signs and symptoms of endophthalmitis reviewed with pt. - Patient wishes to proceed with Avastin # Family history of AMD Mother with wet AMD Brother with history of eye injection, diagnosis unknown # Duodenal cancer # sp Whipple procedure 03/17/2025 No chemotherapy treatments Follow-up 4 to 6 weeks for exam, OCT and FUENTES OS Patient lives in [place], will need follow-up care better Post Injection Patient Information You had eye injection(s) today. These are your after injection instructions. Today: Preservative free artificial tears 1 drop every hour while awake as needed Tomorrow: Preservative free artificial tears 1 drop every 2 hours while awake as needed Care instructions after eye injections: Do not rub or touch your eye other than dabbing lightly with a tissue An [id number] pain reliever (i.e. Tylenol) can be used for mild soreness Use artificial tears/lubricating drops once an hour as needed for comfort (chill the tears in the refrigerator for more comfort). If you are using the tears more than 4 times a day they need to be the preservative free kind Warm or cool compresses are okay It is okay to shower and wash your face. No swimming pools or saunas for 24 hours COMMON symptoms after successful eye injections: Mild to moderate pain or irritation beginning the day of the injection. This should begin to improve the following day. Eyelash in the eye or vick/gritty sensation Tearing Mild floaters or bubbles in your vision - usually resolves after 1-2 days Bloody tears for 1-2 days after treatment Eye Redness Also known as subconjunctival hemorrhage This bruise can cover the entire white part of the eye and may last a few weeks CONCERNING symptoms after eye injections: Severe, constant pain Worsening pain after the first day Decreased vision Severe, constant floaters Curtain or veil in your vision New eye redness that was not there after the injection and covers the whole eye Please call the office immediately for any of the above listed concerning symptoms or with any other questions. If it is after hours please call [phone] which will give instructions on how to reach the eye doctor employee relations director documented in this encounter [facility] 05-10-2025 Note Date of Procedure 05/10/2025. OCT Macula Interpretation Right Eye Normal foveal contour. Findings include Negative for Subretinal fluid. Left Eye Abnormal foveal contour. Findings include Negative for Subretinal fluid. Interval Change Right Eye Stable. Left Eye Better. [facility] 05-10-2025 Note [facility] 05-10-2025 History of Present illness Narrative 69 year old female presents for evaluation of wavy lines in the left eye. She lives in [place] and travel to [facility] every 4 weeks with her for appointments. She had a Whipple procedure at the end of January 2025. Subjectively her metamorphopsia has resolved. She needs records sent to to [place] [facility] if she is to continue injections past the end of May. 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 - Signs and symptoms of endophthalmitis reviewed with pt. 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 I have discussed the case and the management of this patient's care with the Resident/Fellow, if applicable. I also have reviewed and agree with the assessment and plan as stated above and agree with all of its relevant components. Belgica Landrum MD documented in this encounter [facility] 05-07-2025 Note [facility] 05-07-2025 History of Present illness Narrative .PSYCHOSOCIAL SCREENING ASSESSMENT Date of Service: May 07, 2025 Silvana Gómez is a 70 year old female being seen for initial social work assessment. Diagnosis: Doudenal cancer New Primary Oncologist: Ben Medellin MD Radiation Oncologist: SUHAIL Goals of Care: Curative intent Today's visit includes: self/patient and spouse Family History of Cancer: None SUPPORT NETWORK: Social Connections: Not on file Marital status: Parent(s): Mother is and Father is Child/Children: Yes. How many? Two biological children and two step-children veterinarian laboratory animal care arrangements needed: No Siblings: 1 sister(s) Grandchild(katy): > 5 Home Health Provider: No Community Services: No Lisa Identified: Yes Mormon/Spirituality: Hinduism-Raised Caodaism but now practices Hinduism Are these practices or beliefs that may affect or influence treatment? 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 No Financial Distress: No [place]: No FOOD INSECURITY Within the past year, have you worried about how you would buy or obtain food? No LIVING ARRANGEMENTS: Type: House- independent Resides with: Spouse Transportation Needs: No Transportation Needs (03/22/2025) PRAPARE - Transportation Lack of Transportation (Medical): No Lack of Transportation (Non-Medical): No FUNCTIONAL STATUS: Cognitive limitations: none Physical limitations: none Language barrier: No Hearing Impaired: No Speech Impaired: No Visual Impairments: No Special considerations/accommodations needed: No HEALTH LITERACY: Do you have difficulty understanding medical instructions or other written materials you receive from you doctor or pharmacy? No Do have difficulty filling out medical forms by yourself? No The following interventions were put into place: NA MEDICATION ADHERENCE: Within the past 2 weeks, have you had difficulty remembering to take your medicine? No Within the past 2 weeks, did you ever miss taking your medications for reasons other than forgetting? No The following interventions were put into place: NA MENTAL HEALTH HISTORY: No History of combat/trauma: No Intimate Partner Violence: Not At Risk (04/16/2025) Safe at Home? Fear of Current or Ex-Partner: Not on file Emotionally Abused: Not on file Physically Abused: Not on file Sexually Abused: Not on file Safe at Home?: Yes Substance Use and Treatment History: denied History of Abuse: No Issues with: Sleep:No Eating:No Exercising: No Stress Management: No ADVANCE DIRECTIVES/LEGAL DOCUMENTS: Advance Care Planning Goals of Care Date of Discussion: 05/04/2025 DIscussion Participants: Patient and Spouse Clinical: Screen Printer Helper In this encounter: Bravo has completed the Power of Manager Agency for Health Care-she has nominated a guardian. Bravo has not completed Living Will SIGNATURE: SHAYNA Caceres PATIENT NAME: Silvana Gómez DATE: May 04, 2025 TIME: 5:03 PM PAGER/CONTACT #: Stress: Not on file Coping Strengths: supportive relationships with immediate family, with friends, and with extended family spirituality successful managing past crises hopefulness self advocate strong problem-solving skills ability to plan able to follow direction consistently over time able to communicate effectively meditates uses physical exercise future oriented and able to identify goals meaningful leisure-time pursuits being with family Current affect/mood: appropriate and hopeful History of Loss: Yes, first , parents deaths Adjustment to diagnosis: reflecting understanding, responding appropriately, and accepting help BARRIERS/CARE CHALLENGES: None Are barriers/care challenges identified likely to have an impact on the patient's quality of life during treatment? No INTERVENTIONS/REFERRALS TO BE PROVIDED: Monitor patient response to treatment Communicate pertinent medical/psychosocial information to Cancer Center team Provide emotional support to patient/family Provided supportive counseling to the patient's Professor Of Biochemistry Referral to community resource Education Relaxation Techniques Resources and Referrals: Internal: Music Therapy and Reflections External: [facility] CLINICAL IMPRESSION: Bravo is aa very vibrant and youthful 70 year old whois diagnosed with duodenal cancer. She is very well supported by her , children and family., She has returned to [place] for care as she moved to [place] upon residential but now is returning. She identifies lisa, supportive relationships, seeking information and exercise as coping strategies. Bravo did extremely well with previous diagnosis of breast cancer. She denies any financial strain. Psychosocial Risk Criteria If positive for one or more of the following risk criteria, follow up every 30 days Age: >70 Mental Health: NA Practical Needs: N/A PLAN: To continue to assess emotional well being and assist with concrete needs. Follow up appointment with SW in: 2 weeks Assigned SW listed in Care Team tab: Yes SHAYNA Caceres-S Pager #[phone] documented in this encounter [facility] 05-07-2025 Note [facility] 05-07-2025 History of Present illness Narrative Additional intake questions: Has the patient had fever, nausea, vomiting, diarrhea, constipation, fatigue for > 1 week? Yes, nausea and constipation (day of last BM today ) Does the patient have a decreased appetite? No Does patient want to see a Caregivers Non Medical? No (yes to any of above refer patient to schedulers for dietitian appointment) ) Does patient have any new or increased numbness or tingling of extremities? No Is patient interested in fertility information? No Does patient need any prescription refills? No Does patient have an advanced directive in place? Yes, copies are in [employer] [facility] Hematology Oncology & Blood Disorders Established Patient Visit Note (Elements copied from my note dated 03/09/2025, have been reviewed and updated where appropriate, and all reflect current assessment and medical decision making during today's encounter, 05/07/2025.) PATIENT NAME: Silvana Gómez DATE OF SERVICE: May 07, 2025 REASON FOR VISIT: Iron Deficiency Anemia Follow Up HISTORY OF THE PRESENT ILLNESS: Silvana Gómez is a 70 year old female who presents for follow up of iron deficiency anemia.She has a past medical history includes but is not limited too PMH of GERD, HLD, hypothyroidism, ductal carcinoma s/p lumpectomy s/p re-excision for margins followed by radiation (completed Tamoxifen for 9 years), SVT - Recent new diagnosis of anemia. - Recent labs showed Hgb 8.1 g/dL. - Reports fatigue, lightheadedness, and brain fog. - Denies hematochezia, hematuria, epistaxis, or gum bleeding. - Denies dyspnea or chest pain. - No history of blood transfusions or iron infusions. - Family history of anemia in mother, who required a blood transfusion and iron supplements in her 80s. - Recent colonoscopy and EGD were clear; no bleeding noted. - Denies vegan or vegetarian diet; consumes gluten-free diet due to 's dietary needs. - Decreased appetite and nausea, leading to a 10 lb weight loss over the past few months. - Reports weekly night sweats, but not severe enough to require changing clothes. - Denies paresthesia in hands or feet. - Previously took iron supplements but discontinued due to constipation; recently took two low-dose iron pills a week apart. - Denies recent alcohol consumption; occasionally drinks protein shakes. - Takes PreserVision for macular degeneration and vitamin D3 supplements. - Reports longstanding GERD. - Denies chemotherapy for breast cancer; treated with radiation, tamoxifen, and surgery. -Scheduled for surgery on March [address] Cardenas for duodenal mass Interval History: Bravo presents for follow up. Since last visit, she received IV Iron Dextran on March 15, 2025, underwent surgery for duodenal mass and subsequently diagnosed with duodenal carcinoma. She received an additional 4 doses of ferric gluconate 125 mg while hospitalized. 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 She is unable to tolerate oral iron supplements due to constipation.Stopped prior to surgery. Denies active s/s of bleeding, chest pain, shortness of breath, lightheadedness, dizziness. Describes being foggy since starting chemo treatment. Appetite remains okay. 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 PONV (postoperative nausea and vomiting) 03/05/2025 PAST SURGICAL HISTORY: PAST SURGICAL HISTORY Procedure Laterality Date DILATION & CURETTAGE DX&/THER NONOBSTETRIC ~1982 Dilation & curettage EXC BREAST LES PREOP PLMT RAD MARKER OPEN 1 LES 2005 & 2006 left breast core Bx & then NL Exc Bx: benign EXC BREAST LES PREOP PLMT RAD MARKER OPEN 1 LES 2008 right breast stereotactic Bx & then had NL PM EXTRACTION, ERUPTED TOOTH OR EXPOSED ROOT (ELEVATION AND/OR FORCEPS REMOVAL) ~1975 wisdom teeth extraction MASTECTOMY, PARTIAL 11/10/2009 right re-excision partial mastectomy and sentinel node biopsy TONSILLECTOMY PRIMARY/SECONDARY <AGE 12 ~195 Tonsillectomy CURRENT MEDICATIONS: prochlorperazine (COMPAZINE) 10 mg tablet Take 1 tablet by mouth every 6 hours as needed. glycerin ADULT (FLEET GLYCERIN, ADULT,) suppository 1 suppository by RECTAL route as needed for constipation. bisacodyl EC (DULCOLAX, BISACODYL,) 5 mg EC tablet Take 5 mg by mouth once daily as needed for constipation. metoclopramide HCl (REGLAN) 10 mg tablet Take 1 tablet by mouth three times a day. ondansetron orally disintegrating (ZOFRAN ODT) [address] 1 tablet by mouth and let dissolve every 8 hours as needed for nausea/vomiting. pantoprazole DR (PROTONIX) 40 mg tablet Take 1 tablet by mouth once daily. vlbvcz-ujkmlrbm-afzsjpi (VIOKACE) 20,880-78,300- 78,300 unit tablet Take 1 tablet by mouth three times a day with meals. pantoprazole DR (PROTONIX) 40 mg tablet Take 1 tablet by mouth once daily. cholecalciferol, vitamin D3, (VITAMIN D3 ORAL) Take by mouth. Senna 8.6 mg tab Take 2 tablets by mouth daily at bedtime. fexofenadine (ADEOLA) 180 mg tablet once daily. cetirizine HCl (ZYRTEC) 10 mg chewable tablet Take 20 mg by mouth. rosuvastatin (CRESTOR) 10 mg tablet Take 10 mg by mouth once daily. SYNTHROID 75 mcg tablet Take 75 mcg by mouth once daily. VIT C/MAISHA AC/LUT/COPPER/ZNOX (PRESERVISION LUTEIN ORAL) Take by mouth. ALLERGIES: ALLERGIES Allergen Reactions Seasonal Allergies FAMILY HISTORY: FAMILY HISTORY Problem Relation Age of Onset Heart Attack Father 60 had cabg x4 Macular Degen Mother Macular Degen Brother Heart Brother 50 a-fib had 2 ablations other (Other Cancers) Other no known family hx of breast, ovarian, uterine, prostate, brain, colon, lung, pancreatic, thyroid, leukemia, melanoma, or sarcoma SOCIAL HISTORY: SOCIAL HISTORY[1] REVIEW OF SYSTEMS Ten systems reviewed and negative except for those recorded in the HPI. PHYSICAL EXAMINATION: LMP 09/23/2012 BP: 110/60 Temp: 36.2 C (97.2 F) Temp src: Temporal Pulse: 72 Resp: 20 SpO2: 98 % Gen: 70 year female in no acute distress who is alert and cooperative throughout the interview HEENT: normocephalic, atraumatic, PERRL, EOMI, pharynx clear with pink mucosa and no lesions Nodes: cervical, supraclavicular, axillary and inguinal nodes non-palpable Lungs: Lungs clear to auscultation. No wheezing, rhonci, rales Heart: RRR without murmurs, gallops or rubs Abdomen: soft, non-tender without masses. No palpable HSM, BS normal Musculoskeletal: no significant joint deformities Skin: no rashes, bruising or petechiae Extremities: non-cyanotic; no edema Neuro: Gait normal. No focal weakness Psych: mood and affect normal Laboratory:I have personally reviewed the patients labs and reviewed them with the patient Latest Ref Rng 03/24/2025 03/25/2025 04/09/2025 05/04/2025 WBC 3.70 - 11.00 k/uL 7.13 6.36 5.31 5.78 RBC 3.90 - 5.20 m/uL 4.35 4.14 4.41 4.64 Hemoglobin 11.5 - 15.5 g/dL 11.3 (L) 10.9 (L) 11.9 12.9 Hematocrit 36.0 - 46.0 % 38.2 35.9 (L) 38.3 40.1 MCV 80.0 - 100.0 fL 87.8 86.7 86.8 86.4 MCH 26.0 - 34.0 pg 26.0 26.3 27.0 27.8 MCHC 30.5 - 36.0 g/dL 29.6 (L) 30.4 (L) 31.1 32.2 RDW-CV 11.5 - 15.0 % 19.2 (H) 19.4 (H) 20.0 (H) 17.9 (H) Platelet Count 150 - 400 k/uL 463 (H) 451 (H) 236 161 MPV 9.0 - 12.7 fL 8.9 (L) 9.2 9.8 9.8 Neut% % 70.1 72.3 Abs Neut (ANC) 1.45 - 7.50 k/uL 3.73 4.17 Lymph% % 18.5 17.1 Abs Lymph 1.00 - 4.00 k/uL 0.98 (L) 0.99 (L) [place]% % 7.2 7.4 Abs [place] <0.87 k/uL 0.38 0.43 Eosin% % 3.2 2.6 Abs Eosin <0.46 k/uL 0.17 0.15 Baso% % 0.6 0.3 Abs Baso <0.11 k/uL 0.03 <0.03 Immature Gran % % 0.4 0.3 IMMATURE GRANS (ABS) <0.10 k/uL <0.03 <0.03 NRBC /100 WBC 0.0 0.0 Absolute nRBC <0.01 k/uL <0.01 <0.01 <0.01 <0.01 DTYPE Auto Auto Iron 41 - 186 ug/dL 61 TIBC 232 - 386 ug/dL 267 Transferrin Saturation 15.0 - 57.0 % 22.8 Ferritin 14.7 - 205.1 ng/mL 1,193.0 (H) Assessment and Plan: Silvana Gómez is a 69 year old female who presents for evaluation of anemia. She has a past medical history includes but is not limited too PMH of GERD, HLD, hypothyroidism, ductal carcinoma s/p lumpectomy s/p re-excision for margins followed by radiation (completed Tamoxifen for 9 years), SVT. At time of initial consult, Hemoglobin level at 8.1 g/dL prior to surgery for duodenal mass. Received iron dextran and Underwent whipple procedure with Dr. Cardenas. 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 1. Iron deficiency anemia due to chronic blood loss - ICD9: 280.0, ICD10: D50.0 -s/p IV Iron Dextran and ferric gluconate x 4 -Unable to tolerate oral iron due to constipation -Lab results show resolved anemia and normalization of iron studies. Ferritin likely elevated in the setting of recent surgery and iron infusions -Continue iron rich foods in diet -Repeat iron studies at next blood draw -Monitor CBC and iron studies every 6 weeks #RTC: 3 months (or patient may establish with oncologist in [place] who can monitor iron levels) Nancy Hills APRN.CNP The patient's questions were answered to satisfaction. Total time of this visit, including time spent [id number] with the patient and/or via video/audio, and also in preparing for today's visit for medical decision making, documentation, and discussion with providers involved with the care of the patient was 30 minutes. Greater than 50% of total time was spent in counseling and/or coordination of care. Nancy Hills APRN.CNP Department of Benign Hematology 05/07/2025 [1] Social History Tobacco Use Smoking status: Never Passive exposure: Never Smokeless tobacco: Never Vaping Use Vaping status: Never Used Substance Use Topics Alcohol use: Yes Alcohol/week: 2.0 standard drinks of alcohol Types: 1 Glasses of Wine (5oz), 1 Cans of Beer (12oz) per week Comment: occas 2 drinks Drug use: No documented in this encounter [facility] 05-07-2025 Note [facility] 05-04-2025 Note [facility] 05-04-2025 History of Present illness Narrative ONCOLOGY PATIENT EDUCATION NOTE TOPIC: Chemotherapy Immunotherapy, Medications: Folfox (Oxaliplatin, Fluorouracil) and Atezolizumab patient and spouse here today for education for treatment of Colon / Rectal Cancer Anticipated/Scheduled start date: 05/04/25 READINESS TO LEARN: COGNITIVE ABILITY: Alert and oriented MOTIVATION TO LEARN: Eager Interested FAMILY SUPPORT: High - Very involved in pt care INSTRUCTION PROVIDED TO: Patient and Spouse INSTRUCTION PROVIDED BY: Nurse Coordinator PATIENT LEARNS BEST BY: Individual Instruction Written Instruction - Hand-outs Verbal Instruction Multiple Methods FACTORS AFFECTING LEARNING: None PHYSICAL LIMITATIONS AFFECTING LEARNING: None LEARNING RESPONSE METHOD OF INSTRUCTION: Teach Back Individual instruction Written instruction/Handouts Verbal instruction PATIENT/FAMILY RESPONSE: Verbalizes understanding of: CHEMOTHERAPY-Regimen, toxicity and side effects FOLLOW UP PLAN: Patient instructed to call with any further issues Follow up phone call. Contact information given. SUPPLEMENTAL MATERIAL: Written material was provided at this visit with the following information: My Journey Binder and Bag that includes: Printed sheets of chemotherapy agents and common side effects. Printed sheet with highlighted care team and important phone numbers specifically for Dr. Medellin's office/after hours/weekends/and holidays with instructions to ask for the oncology fellow employee relations director. Printed sheets for home management of nausea/vomiting, diarrhea/constipation, mouth sores, fatigue, peripheral neuropathy and neutropenic fever. Discussed the importance of adequate hydration focusing on 2 quarts of non caffeine fluid per day, well balanced diet with small frequent meals throughout the day, and the benefits of daily exercise. Thermometer with instructions to call with any temperature of 100.4 or higher or symptoms of a neutropenic fever such as shaking and shivering. Time Spent: 30 minutes REFERRAL (RECOMMENDATION): N/A Lori Tran RN documented in this encounter [facility] 05-04-2025 Note [facility] 05-04-2025 History of Present illness Narrative DIAGNOSIS: [id number] duodenal adenocarcinoma BIOMARKERS: Mismatch Repair: Deficient, loss of MLH1 and PMS2 MSI: High DPYD Normal UGT Normal PRIOR TREATMENT: 03/17/25: Exploratory laparotomy with an appendectomy, excisional biopsy of 2 liver masses, as well as an open classic pancreatic duodenectomy with pancreatico jejunostomy hepaticojejunostomy and gastrojejunostomy. PERFORMANCE STATUS: ECOG = 1- Restricted in physically strenuous activity. Carries out light duty. HISTORY OF PRESENT ILLNESS: 69-year-old female patient with a past medical history of GERD, hyperlipidemia, hypothyroidism, SVT, breast ductal carcinoma status postlumpectomy with reexcision for margins followed by radiation (completed tamoxifen 9 years ago) She had unexplained fevers in September and increasing epigastric fullness with right upper quadrant and back pressure. Right upper quadrant ultrasound at that point showed liver cysts, biliary sludge and CBD dilation. Given atypical symptoms, she had a CT of her abdomen hat showed a duodenal mass with intrahepatic ductal dilation and common bile duct dilation with irregular circumferential ampullary thickening. She had an EGD on 03/01/2025 that showed a mass in D2 extending for 3 cm semicircumferential 30 more than 50% of the lumen. She saw Dr. Cardenas on 03/[address] abdomen showing a stable 4 cm D2/D3 duodenal mass with circumferential wall thickening, stable biliary dilation, hazy soft tissue stranding along the hepatic hilum surrounding common hepatic hepatic artery and celiac. Stable enlarged likely metastatic and centrally necrotic peripancreatic lymph nodes with indeterminate hepatic lesions. CT chest with no metastatic disease. MRI of the liver on 03/07/2025 showed an irregular masslike thickening 5 cm involving the duodenum with peripancreatic regional lymphadenopathy. Hepatic lesions turned out to be simple cystic masses. She had an exploratory laparotomy with an appendectomy, excisional biopsy of 2 liver masses, as well as an open classic pancreatic duodenectomy with pancreatico jejunostomy hepaticojejunostomy and gastrojejunostomy. Liver biopsies came back as benign calcified nodules, and bile duct hamartomas. 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 Negative margins. Grade 3. pT4 N1 disease. 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 INTERVAL HISTORY: Pt is here to initiate adjuvant therapy. She is improving from surgery and has no new symptoms. Her PS is 1. No family history of cancer. Non smoker Occasional alcohol No substance use. REVIEW OF SYSTEMS 14 point system reviewed and negative other than HPI. 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 PONV (postoperative nausea and vomiting) 03/05/2025 PAST SURGICAL HISTORY Procedure Laterality Date DILATION & CURETTAGE DX&/THER NONOBSTETRIC ~1982 Dilation & curettage EXC BREAST LES PREOP PLMT RAD MARKER OPEN 1 LES 2005 & 2006 left breast core Bx & then NL Exc Bx: benign EXC BREAST LES PREOP PLMT RAD MARKER OPEN 1 LES 2008 right breast stereotactic Bx & then had NL PM EXTRACTION, ERUPTED TOOTH OR EXPOSED ROOT (ELEVATION AND/OR FORCEPS REMOVAL) ~1975 wisdom teeth extraction MASTECTOMY, PARTIAL 11/10/2009 right re-excision partial mastectomy and sentinel node biopsy TONSILLECTOMY PRIMARY/SECONDARY <AGE 12 ~1959 Tonsillectomy ALLERGIES: Seasonal Allergies FAMILY HISTORY Problem Relation Age of Onset Heart Attack Father 60 had cabg x4 Macular Degen Mother Macular Degen Brother Heart Brother 50 a-fib had 2 ablations other (Other Cancers) Other no known family hx of breast, ovarian, uterine, prostate, brain, colon, lung, pancreatic, thyroid, leukemia, melanoma, or sarcoma SOCIAL HISTORY Social History Tobacco Use Smoking status: Never Passive exposure: Never Smokeless tobacco: Never Vaping Use Vaping status: Never Used Substance Use Topics Alcohol use: Yes Alcohol/week: 2.0 standard drinks of alcohol Types: 1 Glasses of Wine (5oz), 1 Cans of Beer (12oz) per week Comment: occas 2 drinks Drug use: No PHYSICAL EXAM: BP 103/61 Pulse 70 Temp 36.4 C (97.5 F) (Temporal) Resp 16 Wt 52.3 kg (115 lb 4.8 oz) LMP 09/23/2012 SpO2 100% BMI 19.21 kg/m BSA = Body surface area is 1.55 meters squared. CONSTITUTIONAL: Conversant, well developed female in NAD. EYES: Anicteric sclerae; no lid-lag or proptosis. RESPIRATORY: Normal respiratory effort. CARDIOVASCULAR: No peripheral edema. SKIN: No rash, lesions or ulcers. MUSCULOSKELETAL No digital cyanosis. Normal gait and station. NEURO: Cranial nerves II--XII grossly intact. PSYCH: Intact judgment and insight. A&OX3 with a cordial affect. LABS: Glucose (mg/dL) Date Value 04/09/2025 135 03/23/2020 107 Potassium (mmol/L) Date Value 04/09/2025 3.7 03/23/2020 4.2 Sodium (mmol/L) Date Value 04/09/2025 140 03/23/2020 142 Chloride (mmol/L) Date Value 04/09/2025 103 03/23/2020 106 CO2 (mmol/L) Date Value 04/09/2025 24 03/23/2020 26 Creatinine (mg/dL) Date Value 04/09/2025 0.55 03/23/2020 0.71 Creatinine (POCT) (mg/dL) Date Value 03/05/2025 0.60 BUN (mg/dL) Date Value 04/09/2025 10 03/23/2020 14 Anion Gap (mmol/L) Date Value 04/09/2025 13 03/23/2020 10 Calcium (mg/dL) Date Value 03/23/2020 9.4 Calcium, Total (mg/dL) Date Value 04/09/2025 9.3 Protein, Total (g/dL) Date Value 04/09/2025 6.9 01/16/2016 6.8 Albumin (g/dL) Date Value 04/09/2025 4.2 01/16/2016 4.6 Bilirubin, Total (mg/dL) Date Value 04/09/2025 0.2 01/16/2016 0.3 Alkaline Phosphatase (U/L) Date Value 04/09/2025 151 01/16/2016 47 AST (U/L) Date Value 04/09/2025 19 01/16/2016 18 ALT (U/L) Date Value 04/09/2025 15 01/16/2016 14 ASSESSMENT/PLAN: 69-year-old female patient with a past medical history of GERD, hyperlipidemia, hypothyroidism, SVT, breast ductal carcinoma status postlumpectomy with reexcision for margins followed by radiation (completed tamoxifen 9 years ago) who is 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 Plan Duodenal cancer. Pt has recovered well from surgery. OK to initiate systemic therapy with FOLFOX/atezolizumab. Toxicities of treatment reviewed with pt and . Nausea. Reviewed antiemetic use, added compazine for PRN relief. Genetic testing. Negative, but reminded pt to ensure her children get colonoscopy starting at age 40 (daughter has polyps at age 44). 4. Abnormal LFTs. Unclear etiology, monitor for now. Ben Medellin MD Additional intake questions: Has the patient had fever, nausea, vomiting, diarrhea, constipation, fatigue for > 1 week? Yes, nausea, constipation (day of last BM 05/03), and fatigue Does the patient have a decreased appetite? No Does patient want to see a Caregivers Non Medical? No (yes to any of above refer patient to schedulers for dietitian appointment) ) Does patient have any new or increased numbness or tingling of extremities? No Is patient interested in fertility information? No Does patient need any prescription refills? No Does patient have an advanced directive in place? Yes, copies are in [facility] Electronically Signed By: Zachary Rabago LPN documented in this encounter [facility] 05-04-2025 Note [facility] 05-03-2025 Telephone encounter Note 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 Specialist Pre Chemo Patient identified by name and date of . YES Confirmed date and time for chemotherapy ? YES Other appointments (labs, imaging) discussed? YES Discussed where to park (district leader), charge for parking YES Discussed where to report (building/floor) YES Any pre-medications ordered? NO Described the infusion room and what to expect. (What to wear, what to bring [iPad, books] amount of time treatment can take, meals and CC options for food) YES Discussed whether the patient can eat prior to labs and treatment. YES Who is driving you to and from treatment? Spouse Discussed why it is important to bring someone with you. Yes Resources discussed (music therapy, Art therapy, pet therapy, etc.) NO - will discuss during C1 D1 education Education on chemotherapy (drug, side effects) discussed and that the patient will be receiving a C1D1 call within 7 days of treatment. NO - - will discuss during C1 D1 education Lori Tran RN [facility] 05-03-2025 Miscellaneous Notes 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 Specialist Pre Chemo Patient identified by name and date of . YES Confirmed date and time for chemotherapy ? YES Other appointments (labs, imaging) discussed? YES Discussed where to park (district leader), charge for parking YES Discussed where to report (building/floor) YES Any pre-medications ordered? NO Described the infusion room and what to expect. (What to wear, what to bring [iPad, books] amount of time treatment can take, meals and CC options for food) YES Discussed whether the patient can eat prior to labs and treatment. YES Who is driving you to and from treatment? Spouse Discussed why it is important to bring someone with you. Yes Resources discussed (music therapy, Art therapy, pet therapy, etc.) NO - will discuss during C1 D1 education Education on chemotherapy (drug, side effects) discussed and that the patient will be receiving a C1D1 call within 7 days of treatment. NO - - will discuss during C1 D1 education Lori Tran RN documented in this encounter [facility] 04-09-2025 Telephone encounter Note RADIOLOGY PROCEDURE INSTRUCTIONS: You are scheduled for a Mediport insertion, on Wednesday April 16, 2025 You are to arrive at 1200 pm and check in at [facility]: Radiology Outpatient Desk [id number]. You can expect to be here for 3-5 hours. Address: [address] [address] Diet: Do not eat any solid food after midnight the night before your procedure. You may drink clear liquids until 1000 am the day of your procedure, which means black coffee, apple juice, tea, jello, Gatorade, or water only. If applicable, hold tube feed starting at 4 am the day of your procedure. Medications: Please take prescribed medications such as heart, blood pressure, anti-seizure, and chronic pain medications with a sip of clear liquids. Bring your current medication list. Radiology recommends these medication restrictions: If you are taking any medication that is a blood thinner, hypoglycemic, weight loss agent, etc., Call [phone] you may need to hold this medication prior to procedure. Not stopping the medication correctly may result in your procedure being canceled. If ok with your prescribing provider: Hold Lovenox (Enoxaparin) for 1 dose(s) prior to this procedure. If you are diabetic please contact your physician regarding diet restrictions and managing insulin/diabetes medications pre-procedure: Stop oral hypoglycemic the day of this procedure Hold short acting insulin the day of procedure Long acting insulin, take dose If on mixed insulin - if BG> than 200 take half the dose If BG less < 200- don't take If you are currently taking injectable or oral medication for diabetes or weight loss: Please call [phone] Allergies: Allergies reviewed: Yes Do you have a contrast dye allergy? No. Labs: Lab work needs to be drawn? No. Prep Person/Transportation: How will you be arriving for your procedure? Private car. If you will be arriving via ambulance or public transportation, please call to discuss. You will need a responsible adult to accompany you to and from the procedure. We will verify your ride home upon arrival. Minors/visitors requiring supervision cannot accompany you unless there is another responsible adult with them. Child and/or dependent care arrangements need to be made. If you need to cancel or reschedule your procedure, please call our fishing gear mechanic: Carmen Diana [phone]; 8am - 4pm M-F If you have any additional questions please call: [facility] nurses desk at [phone] 8am - 4pm M-F. [facility] 04-09-2025 Miscellaneous Notes RADIOLOGY PROCEDURE INSTRUCTIONS: You are scheduled for a Mediport insertion, on Wednesday April 16, 2025 You are to arrive at 1200 pm and check in at [facility]: Radiology Outpatient Desk [id number]. You can expect to be here for 3-5 hours. Address: [place] [address] Diet: Do not eat any solid food after midnight the night before your procedure. You may drink clear liquids until 1000 am the day of your procedure, which means black coffee, apple juice, tea, jello, Gatorade, or water only. If applicable, hold tube feed starting at 4 am the day of your procedure. Medications: Please take prescribed medications such as heart, blood pressure, anti-seizure, and chronic pain medications with a sip of clear liquids. Bring your current medication list. Radiology recommends these medication restrictions: If you are taking any medication that is a blood thinner, hypoglycemic, weight loss agent, etc., Call [phone] you may need to hold this medication prior to procedure. Not stopping the medication correctly may result in your procedure being canceled. If ok with your prescribing provider: Hold Lovenox (Enoxaparin) for 1 dose(s) prior to this procedure. If you are diabetic please contact your physician regarding diet restrictions and managing insulin/diabetes medications pre-procedure: Stop oral hypoglycemic the day of this procedure Hold short acting insulin the day of procedure Long acting insulin, take dose If on mixed insulin - if BG> than 200 take half the dose If BG less < 200- don't take If you are currently taking injectable or oral medication for diabetes or weight loss: Please call [phone] Allergies: Allergies reviewed: Yes Do you have a contrast dye allergy? No. Labs: Lab work needs to be drawn? No. Prep Person/Transportation: How will you be arriving for your procedure? Private car. If you will be arriving via ambulance or public transportation, please call to discuss. You will need a responsible adult to accompany you to and from the procedure. We will verify your ride home upon arrival. Minors/visitors requiring supervision cannot accompany you unless there is another responsible adult with them. Child and/or dependent care arrangements need to be made. If you need to cancel or reschedule your procedure, please call our fishing gear mechanic: Carmen Diana [phone]; 8am - 4pm M-F If you have any additional questions please call: [facility] nurses desk at [phone] 8am - 4pm M-F. documented in this encounter [facility] 04-09-2025 History of Present illness Narrative Images from the original note were not included. [facility] Oncology Clinical Note PATIENT NAME: Silvana Gómez [facility] NO.: [id number] DATE OF SERVICE: April 08, 2025 REFERRING PHYSICIAN: Dr. Cardenas PRIMARY CARE PHYSICIAN: Jamie Ramirez MD CONSULTATION REGARDING: duodenal adenocarcinoma . Final recommendations will be communicated through shared medical records or US mail. DIAGNOSIS: [id number] duodenal adenocarcinoma BIOMARKERS: Mismatch Repair: Deficient, loss of MLH1 and PMS2 MSI: High PRIOR TREATMENT: 03/17/25: Exploratory laparotomy with an appendectomy, excisional biopsy of 2 liver masses, as well as an open classic pancreatic duodenectomy with pancreatico jejunostomy hepaticojejunostomy and gastrojejunostomy. PERFORMANCE STATUS: ECOG = 1- Restricted in physically strenuous activity. Carries out light duty. HISTORY OF PRESENT ILLNESS: 69-year-old female patient with a past medical history of GERD, hyperlipidemia, hypothyroidism, SVT, breast ductal carcinoma status postlumpectomy with reexcision for margins followed by radiation (completed tamoxifen 9 years ago) She had unexplained fevers in September and increasing epigastric fullness with right upper quadrant and back pressure. Right upper quadrant ultrasound at that point showed liver cysts, biliary sludge and CBD dilation. Given atypical symptoms, she had a CT of her abdomen hat showed a duodenal mass with intrahepatic ductal dilation and common bile duct dilation with irregular circumferential ampullary thickening. She had an EGD on 03/01/2025 that showed a mass in D2 extending for 3 cm semicircumferential 30 more than 50% of the lumen. She saw Dr. Cardenas on 03/[address] abdomen showing a stable 4 cm D2/D3 duodenal mass with circumferential wall thickening, stable biliary dilation, hazy soft tissue stranding along the hepatic hilum surrounding common hepatic hepatic artery and celiac. Stable enlarged likely metastatic and centrally necrotic peripancreatic lymph nodes with indeterminate hepatic lesions. CT chest with no metastatic disease. MRI of the liver on 03/07/2025 showed an irregular masslike thickening 5 cm involving the duodenum with peripancreatic regional lymphadenopathy. Hepatic lesions turned out to be simple cystic masses. She was discussed at the tumor board with plans for surgical exploration. He had an exploratory laparotomy with an appendectomy, excisional biopsy of 2 liver masses, as well as an open classic pancreatic duodenectomy with pancreatico jejunostomy hepaticojejunostomy and gastrojejunostomy. Liver biopsies came back as benign calcified nodules, and bile duct hamartomas. 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 Negative margins. Grade 3. pT4 N1 disease. 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 She was discussed in tumor board, planning chemotherapy and considering adding immune checkpoint inhibitor. CEA 1.5 CA 19.9 68 She lives in [place]. No family history of cancer. Non smoker Occasional alcohol No substance use. REVIEW OF SYSTEMS 14 point system reviewed and negative other than HPI. 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 PONV (postoperative nausea and vomiting) 03/05/2025 PAST SURGICAL HISTORY Procedure Laterality Date DILATION & CURETTAGE DX&/THER NONOBSTETRIC ~1982 Dilation & curettage EXC BREAST LES PREOP PLMT RAD MARKER OPEN 1 LES 2005 & 2006 left breast core Bx & then NL Exc Bx: benign EXC BREAST LES PREOP PLMT RAD MARKER OPEN 1 LES 2008 right breast stereotactic Bx & then had NL PM EXTRACTION, ERUPTED TOOTH OR EXPOSED ROOT (ELEVATION AND/OR FORCEPS REMOVAL) ~1975 wisdom teeth extraction MASTECTOMY, PARTIAL 11/10/2009 right re-excision partial mastectomy and sentinel node biopsy TONSILLECTOMY PRIMARY/SECONDARY <AGE 12 ~1959 Tonsillectomy ALLERGIES: Seasonal Allergies FAMILY HISTORY Problem Relation Age of Onset Heart Attack Father 60 had cabg x4 Macular Degen Mother Macular Degen Brother Heart Brother 50 a-fib had 2 ablations other (Other Cancers) Other no known family hx of breast, ovarian, uterine, prostate, brain, colon, lung, pancreatic, thyroid, leukemia, melanoma, or sarcoma SOCIAL HISTORY Social History Tobacco Use Smoking status: Never Passive exposure: Never Smokeless tobacco: Never Vaping Use Vaping status: Never Used Substance Use Topics Alcohol use: Yes Alcohol/week: 2.0 standard drinks of alcohol Types: 1 Glasses of Wine (5oz), 1 Cans of Beer (12oz) per week Comment: occas 2 drinks Drug use: No PHYSICAL EXAM: LMP 09/23/2012 BSA = There is no height or weight on file to calculate BSA. Constitutional: AAOx3, thin Respiratory: lungs are clear bilaterally Cardiovascular: regular heart rate, regular rhythm Gastrointestinal: Soft Musculoskeletal: normal gait. Extremities: No edema in the lower extremities Psychological: appropriate mood and behavior LABS: CBC with diff: WBC 6.36 03/25/2025 RBC 4.14 03/25/2025 Hemoglobin 10.9 03/25/2025 Hematocrit 35.9 03/25/2025 MCV 86.7 03/25/2025 MCH 26.3 03/25/2025 MCHC 30.4 03/25/2025 RDW-CV 19.4 03/25/2025 Platelet Count 451 03/25/2025 MPV 9.2 03/25/2025 Neut% 88.2 03/17/2025 Lymph% 4.5 03/17/2025 [place]% 6.6 03/17/2025 Eosin% 0.0 03/17/2025 Baso% 0.2 03/17/2025 Abs Neut (ANC) 12.27 03/17/2025 Abs [place] 0.92 03/17/2025 Abs Eosin <0.03 03/17/2025 Abs Baso 0.03 03/17/2025 Glucose (mg/dL) Date Value 03/25/2025 104 03/23/2020 107 Potassium (mmol/L) Date Value 03/25/2025 3.9 03/23/2020 4.2 Sodium (mmol/L) Date Value 03/25/2025 138 03/23/2020 142 Chloride (mmol/L) Date Value 03/25/2025 104 03/23/2020 106 CO2 (mmol/L) Date Value 03/25/2025 24 03/23/2020 26 Creatinine (mg/dL) Date Value 03/25/2025 0.59 03/23/2020 0.71 Creatinine (POCT) (mg/dL) Date Value 03/05/2025 0.60 BUN (mg/dL) Date Value 03/25/2025 4 03/23/2020 14 Anion Gap (mmol/L) Date Value 03/25/2025 10 03/23/2020 10 Calcium (mg/dL) Date Value 03/23/2020 9.4 Calcium, Total (mg/dL) Date Value 03/25/2025 8.4 Protein, Total (g/dL) Date Value 03/21/2025 5.0 01/16/2016 6.8 Albumin (g/dL) Date Value 03/21/2025 2.6 01/16/2016 4.6 Bilirubin, Total (mg/dL) Date Value 03/21/2025 0.2 01/16/2016 0.3 Alkaline Phosphatase (U/L) Date Value 03/21/2025 381 01/16/2016 47 AST (U/L) Date Value 03/21/2025 20 01/16/2016 18 ALT (U/L) Date Value 03/21/2025 39 01/16/2016 14 PATHOLOGY REPORTS: Component Ref Range & Units MMR Interpretation Deficient Mismatch Repair (dMMR) Abnormal MLH1 Immunohistochemical Results Loss of Nuclear Expression Abnormal PMS2 Immunohistochemical Results Loss of Nuclear Expression Abnormal MSH2 Immunohistochemical Results Normal/Intact Nuclear Expression MSH6 Immunohistochemical Results Normal/Intact Nuclear Expression MLH1 Promoter Methylation Assay Yes, Reported Separately Tumor Type Other (See Comment) Comment: Invasive poorly differentiated adenocarcinoma with mucinous features of the duodenum FINAL DIAGNOSIS A. Adipose tissue , excision: - Fibroadipose tissue with no significant histopathologic findings, negative for tumor. B. Liver, biopsy #1: - Benign hyalinized/calcified nodule. C. Liver, biopsy #2: - Bile duct hamartoma. D. Appendix, appendectomy: - Appendix with no significant histopathologic findings. E. Hepatic artery lymph node, excision: - One lymph node, negative for tumor (0/1). F. Gallbladder, cholecystectomy: - Chronic cholecystitis. G. Omentum, resection: - Fibroadipose tissue with no significant histopathologic findings, negative for tumor. H. Bile duct margin, excision: - Portion of bile duct, negative for dysplasia and tumor. I. Pancreatic neck margin, excision: - Portion of pancreas with no significant histopathologic findings, negative for dysplasia and tumor. J. Portion of pylorus, duodenum, common bile duct, and head of pancreas, partial pancreaticoduodenectomy (Whipple procedure): - Invasive poorly differentiated adenocarcinoma with mucinous features of the duodenum arising from a tubulovillous adenoma with high-grade dysplasia; see comment and synoptic report. - Tumor invades pancreas. - Metastatic adenocarcinoma involving one of twenty-one lymph nodes (10/13). - All margins are negative for dysplasia and tumor. - Background pancreas, duodenum, bile duct, and pylorus with no significant histopathologic findings. at 1224 EDT LATEST IMAGING: MRI liver IMPRESSION: Irregular masslike thickening involving an approximately 5 cm length segment of the second portion of the duodenum with resultant biliary dilation. Suspected peripancreatic regional lymphadenopathy. Hepatic lesions are benign-appearing, predominantly simple cystic masses. CT Abdomen Pelvis with IV contrast IMPRESSION: Irregular masslike thickening involving an approximately 5 cm length segment of the second portion of the duodenum with resultant biliary dilation. Suspected peripancreatic regional lymphadenopathy. Hepatic lesions are benign-appearing, predominantly simple cystic masses. ASSESSMENT/PLAN: 69-year-old female patient with a past medical history of GERD, hyperlipidemia, hypothyroidism, SVT, breast ductal carcinoma status postlumpectomy with reexcision for margins followed by radiation (completed tamoxifen 9 years ago) who is presenting for duodenal carcinoma. Staging scans without metastatic disease. MRI of the liver with simple cystic masses. She had a whipple on 03/17 and pathology came back as poorly differentiated pT4N1. 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 We discussed adjuvant chemotherapy with 6 months of FOLFOX to decrease risk of recurrence in high risk stage III disease. We also discussed the recent findings from the ATOMIC trial for MSI-H colon cancer where addition of Atezolizumab to FOLFOX had a 3 year DFS of 86.4% vs 76.6% in the chemotherapy alone arm. We discussed that given the rarity of duodenal cancer as compared to colon cancer, the results from colon cancer trials are usually extrapolated to small bowel cancers. We discussed genetic testing for Portillo syndrome. The patient viewed a genetic testing educational video which describes rationale for germline genetic testing, potential results, and possible personal and familial implications. The patient chose to pursue and provided informed consent for germline testing. Test results will be disclosed by a genetic counselor. Plan - Discussed genetic testing for Portillo syndrome, watched informational video and ordered blood test - Discussed chemotherapy with FOLFOX +/- Atezolizumab - Will need to schedule port placement - since she is slowly recovering, and since she is planning to go to [place], will plan to start treatment on May 04. - DPYD testing Thank you for the courtesy of this consultation. Nikolai Giles MD Hematology and Oncology Fellow [facility] cc: MD Earl Blanco [address] [facility] [id number] [facility] [place] PH[facility]IC[facility] NOTE OF PERSONAL INVOLVEMENT IN CARE I have reviewed the history and physical examination obtained and documented by the fellow and I personally participated in the abad components. I have discussed the case and management of the patient's care. The following comments revise or confirm relevant abad components of the note. IMPRESSION: This is a 69 year old with resection of dMMR duodenal cancer s/p resection. She is slowly recovering from surgery but still losing weight so anticipate another 2 wks before adjuvant therapy can be attempted. Discussed benefits of adjuvant FOLFOX, based on extrapolation from colon cancer data. Discussed benefits of adjuvant atezolizumab, also based on extrapolation from recently published ATOMIC trial results. Pt agreeable to plan. RTC after port placement to initiate treatment. Ben Medellin MD Reviewed and confirmed with patient that there were no changes in the the nursing assessment and vitals that were completed on 04/09/2025 during previous provider appointment. documented in this encounter [facility] 04-09-2025 Note [facility] 04-09-2025 Instructions Nikolai Giles MD - 04/09/2025 10:49 AM EDT Please schedule as a first time treatment visit type. documented in this encounter [facility] 04-09-2025 History of Present illness Narrative Oncology Nutrition Therapy RECOMMENDED MALNUTRITION DIAGNOSIS: MODERATE PROTEIN-CALORIE MALNUTRITION In the context of Chronic Illness or Injury based on: Unintentional Weight Loss: >5% in 1 month Insufficient Energy Intake: Less than or equal to 75% energy intake compared to estimated needs for greater than or equal to 1 month Muscle Loss Moderate Loss Nutriscore: No Data Recorded Nutrition Diagnosis: Inadequate protein-energy intake, related to cancer dx/surgery, as evidenced by weight hx/patient report Nutrition Intervention: - Meal pattern and types of foods consumed: -Calorie goal: 3244-2452 kcals/day -Protein goal: 65-75 grams/day -Consume smaller, more frequent meals -Add sauces/condiments/gravies/oil/butter for extra calories -Continue to consume oral nutrition supplements daily -Can consume 2-3x/day if needed -Boost/Ensure, Premier Protein, Fairlife Nutrition Plan/Core Power, etc -For side-effect management: refer to Creative Eating During Illness and Recovery booklet - Hydration: -Goal for at least 64 oz of decaffeinated fluids per day -Consume liquids between meals rather than with meals - Medications: -Continue viokace as prescribed Nutrition Monitoring & Evaluation: weight status, bowel regulation, hydration status, tolerance to nutrition support (ONS/EN), biochemical markers, management of nutrition impact symptoms HPI: This is a 69 y/o patient with duodenal adenocarcinoma s/p ex lap, appendectomy, open classic whipple on 03/17/25. PMH: GERD, HLD, hypothyroidism, ductal carcinoma s/p lumpectomy followed by RT (completed tamoxifen x 9 years). Current treatment: plans to start chemo 05/04/25 Subjective: Patient presents for initial consult regarding nutrition counseling for duodenal cancer. Patient reports a terrible appetite, primarily due to early satiety. Was on a GI soft diet, however was cleared for a regular diet today. Patient states that today is the first day without nausea and that food is starting to taste like food again. Has issues with constipation - takes miralax daily and senna PRN, effective. Started viokace on Saturday. Patient's Symptoms are: GI: constipation and nausea Behavioral: altered appetite and early satiety Weight Concerns: weight loss Diet recall: B: scrambled egg OR yogurt, protein shake L: broccoli cheddar soup, crackers today D: short ribs, mashed potatoes yesterday Sn: not lately Fluids: mostly water, juice Dietary supplements: Premier Protein 1x/d Nutritional intake: </=75% of estimated needs Provided supportive education regarding the importance of adequate nutrient intakes and maintenance of LBM throughout treatment. Discussed above intervention. All questions/concerns voiced by patient were addressed this visit. Readiness to Learn: Cognitive ability: Alert and oriented Motivation to learn: Interested Family support: High - Very involved in pt care Instruction provided to: Patient and Spouse Patient learns best by: Multiple Methods Factors affecting learning: None Physical limitations affecting learning: None Educational materials provided: Creative Eating During Illness and Recovery and Creative Eating: Recipes for Soups, Smoothies, and Supplements Anthropometrics: Height: Last 1 Encounter Ht Readings: Date: Ht: 03/05/2025 165.1 cm (5' 5 ) Current weight: Last 1 Encounter Wt Readings: Date: Wt: 04/09/2025 52.7 kg (116 lb 2.9 oz)] Estimated body mass index is 19.36 kg/m as calculated from the following: Height as of an earlier encounter on 04/09/25: 165 cm (5' 4.96 ). Weight as of an earlier encounter on 04/09/25: 52.7 kg (116 lb 2.9 oz). Resting Metabolic Rate: 1094 UBW: 135 lbs Weight change: down 9 lbs (7.2%) x 1 month - clinically significant Date: Wt: 04/09/2025 52.7 kg (116 lb 2.9 oz) 03/09/2025 56.9 kg (125 lb 7.1 oz) Dosing Weight: 52.7 kg Estimated kilocalorie needs: 4885-1289 kilocalories determined by 30-35 kcal/kg Estimated protein needs: 63-79 grams determined by 1.2-1.5 g/kg Dosing weight Estimated fluid needs: 2923-4678 milliliters based on 1 mL per kcal Nutrition Focused Physical Exam: Unable to perform exam due to inability to access exam locations (abdominal binders, wound dressings, restraints, etc), will re-attempt during reassessment. NFPE per inpatient RD 03/19/25: Subcutaneous fat loss: No Subcutaneous Fat Loss Muscle loss: Muscle Loss Assessed Temporalis: Slight depression (Mild) Clavicle: More prominent bone, less prominent muscle (Mod) Acromion: Acromion process slightly protrudes (Mod) Interosseous (Hand): Slight depression of muscle (Mild) Quadricep: Mild depression on inner thigh, kneecap more prominent (Mod) Gastrocnemius: Not well-developed muscle (Mild) Potential Signs of Inflammation: hyperglycemia and chronic condition Food Insecurity: No Food Insecurity (03/22/2025) Hunger Vital Sign Worried About Running Out of Food in the Last Year: Never true Ran Out of Food in the Last Year: Never true Allergies: Seasonal Allergies Medications: Current Outpatient Medications Medication Sig Dispense Refill metoclopramide HCl (REGLAN) 10 mg tablet Take 1 tablet by mouth three times a day. 90 tablet 0 ondansetron orally disintegrating (ZOFRAN ODT) [address] 1 tablet by mouth and let dissolve every 8 hours as needed for nausea/vomiting. [address] (PROTONIX) 40 mg tablet Take 1 tablet by mouth once daily. 30 tablet 2 smxppy-fzsmojxv-znhdrle (VIOKACE) 20,880-78,300- 78,300 unit tablet Take 1 tablet by mouth three times a day with meals. 540 tablet 0 enoxaparin (LOVENOX) 40 mg/0.4 mL Inject 0.4 mL subcutaneously once daily. [address] (PROTONIX) 40 mg tablet Take 1 tablet by mouth once daily. 30 tablet 2 cholecalciferol, vitamin D3, (VITAMIN D3 ORAL) Take by mouth. Senna 8.6 mg tab Take 2 tablets by mouth daily at bedtime. 60 tablet 0 fexofenadine (ADEOLA) 180 mg tablet once daily. cetirizine HCl (ZYRTEC) 10 mg chewable tablet Take 20 mg by mouth. rosuvastatin (CRESTOR) 10 mg tablet Take 10 mg by mouth once daily. SYNTHROID 75 mcg tablet Take 75 mcg by mouth once daily. VIT C/MAISHA AC/LUT/COPPER/ZNOX (PRESERVISION LUTEIN ORAL) Take by mouth. No current facility-administered medications for this visit. Need for Follow up: PRN Referred by: [facility] Billing Type: Initial Assess 1 unit Total Time (mins): 19 Signed by: Scarlet MCMANUS RD, LD documented in this encounter [facility] 04-09-2025 Note [facility] 04-09-2025 Note [facility] 04-09-2025 Note [facility] 04-09-2025 History of Present illness Narrative [facility] Note Surgery: classic whipple procedure (03/17/25) Postop Visit #: 1 PMD: Jamie Ramirez MD Interval Hx: Doing well postoperatively. Having issues with PO intake, she's constantly nauseous without vomiting. Does have some burping occasionally. She has lost 8lbs since discharge. Post-op Pathology: [id number], dMMR, MLH1/PMS2 deficient. [MLH1 promoter methylation = present] FINAL DIAGNOSIS A. Adipose tissue , excision: - Fibroadipose tissue with no significant histopathologic findings, negative for tumor. B. Liver, biopsy #1: - Benign hyalinized/calcified nodule. C. Liver, biopsy #2: - Bile duct hamartoma. D. Appendix, appendectomy: - Appendix with no significant histopathologic findings. E. Hepatic artery lymph node, excision: - One lymph node, negative for tumor (0/1). F. Gallbladder, cholecystectomy: - Chronic cholecystitis. G. Omentum, resection: - Fibroadipose tissue with no significant histopathologic findings, negative for tumor. H. Bile duct margin, excision: - Portion of bile duct, negative for dysplasia and tumor. I. Pancreatic neck margin, excision: - Portion of pancreas with no significant histopathologic findings, negative for dysplasia and tumor. J. Portion of pylorus, duodenum, common bile duct, and head of pancreas, partial pancreaticoduodenectomy (Whipple procedure): - Invasive poorly differentiated adenocarcinoma with mucinous features of the duodenum arising from a tubulovillous adenoma with high-grade dysplasia; see comment and synoptic report. - Tumor invades pancreas. - Metastatic adenocarcinoma involving one of twenty-one lymph nodes (1). - All margins are negative for dysplasia and tumor. - Background pancreas, duodenum, bile duct, and pylorus with no significant histopathologic findings. Electronically signed by Hardeep Bone MD on 02/23 Objective: Physical Exam BP 111/62 (BP Site: Left Arm, BP Position: Sitting, BP Cuff Size: Regular Adult) Pulse 76 Temp 36.4 C (97.5 F) (Temporal) Resp 16 Ht 165 cm (5' 4.96 ) Wt 52.7 kg (116 lb 2.9 oz) LMP 09/23/2012 SpO2 99% BMI 19.36 kg/m CONSTITUTIONAL: well developed, well nourished. CARDIOVASCULAR: heart sounds normal with no murmurs; no extremity edema RESPIRATORY: breathing comfortably; breath sounds clear and equal bilaterally without wheezing GASTROINTESTINAL: abdomen soft, nontender, nondistended; midline incision c/d/I, no hernias palpated, steri-strips still in place SKIN: no rashes or ulcers; no areas of induration MUSCULOSKELETAL: no kyphosis; normal gait; grossly normal muscle strength and tone PSYCHIATRIC: oriented to time, place and person, normal affect Assessment: Silvana Gómez is a 69yoF s/p classic whipple, doing overall well. Ongoing issues include weight loss, persistent nausea. Plan: - okay to start adjuvant chemo per Heme/Onc schedul - patient might be considered for ICI therapy given dMMR, MLH1/PMS2 deficient - will update Rx for Zofran/PPI, prescribe Reglan, recommend senna OTC for constipation - will have video visit with her in 3mos with a CT scan Louie Lyons MD PGY4, General Surgery Attending Note I evaluated the patient and personally participated in the abad components. I agree with the resident's findings and plan as documented and have discussed the case and management of the patient's care with the resident. Signature: Earl Cardenas MD documented in this encounter [facility] 04-05-2025 Note Date of Procedure 04/05/2025 [place] Protocol Safety Checklist A moment of CARE was completed Sign In Sign in communication not applicable due to emergent procedure. Personnel directly involved with the procedure wore the appropriate PEE. Special Equipment: N/A. Patient/surrogate stated/verified patient name, date of , relevant allergies, intended procedure. Provider Confirms: Relevant labs, photos, and/or imaging studies have been reviewed. Intended patient and procedure match the source document(s) (e.g. consent, associated studies [imaging, pathology]). Consent obtained and matches the intended procedure. Correct side/site marked and visible. Medications required for procedure verified. Fire risk assessed and interventions discussed: N/A. Correct implant(s) confirmed including size and side: N/A. Sign Out All specimens are correctly labeled and sent: N/A. All instruments, equipment, possible retained foreign bodies accounted for. Post-procedure POC communicated to patient or surrogate. Post-procedure POC communicated to patient's multidisciplinary team: N/A. Anesthesia 2-4 drops Tetracaine 0.5%, Topical 4% Lidocaine on cotton swabs. Prep 5% Betadine. Injection Administration Medication: 1.25 mg bevacizumab ophthalmic 1.25 mg/0.05 mL Route: INTRAVITREAL, Site: Left Balance Wasted Residual medication less than 1 unit was discarded. Anterior Chamber Paracentesis No. Post Injection Evaluation Patient has at least hand motion vision. Post Procedure Medications None. Home Going Prescription None. [facility] 04-05-2025 Instructions Belgica Landrum MD - 04/05/2025 3:50 PM EDT Post Injection Patient Information You had eye injection(s) today. These are your after injection instructions. Today: Preservative free artificial tears 1 drop every hour while awake as needed Tomorrow: Preservative free artificial tears 1 drop every 2 hours while awake as needed Care instructions after eye injections: Do not rub or touch your eye other than dabbing lightly with a tissue An keuc-ncu-rlhfsto pain reliever (i.e. Tylenol) can be used for mild soreness Use artificial tears/lubricating drops once an hour as needed for comfort (chill the tears in the refrigerator for more comfort). If you are using the tears more than 4 times a day they need to be the preservative free kind Warm or cool compresses are okay It is okay to shower and wash your face. No swimming pools or saunas for 24 hours COMMON symptoms after successful eye injections: Mild to moderate pain or irritation beginning the day of the injection. This should begin to improve the following day. Eyelash in the eye or vick/gritty sensation Tearing Mild floaters or bubbles in your vision - usually resolves after 1-2 days Bloody tears for 1-2 days after treatment Eye Redness Also known as subconjunctival hemorrhage This bruise can cover the entire white part of the eye and may last a few weeks CONCERNING symptoms after eye injections: Severe, constant pain Worsening pain after the first day Decreased vision Severe, constant floaters Curtain or veil in your vision New eye redness that was not there after the injection and covers the whole eye Please call the office immediately for any of the above listed concerning symptoms or with any other questions. If it is after hours please call [phone] which will give instructions on how to reach the eye doctor employee relations director documented in this encounter [facility] 04-05-2025 Note Date of Procedure 04/05/2025. Underwriting Account Representative Information Ton Cylinder Inspector: Jennifer Chambers. Start time: 1:09 PM. Stop time: 1:09 PM. OCT Macula Interpretation Right Eye Findings include Negative for Intraretinal fluid, Subretinal fluid, Drusen. Left Eye Findings include Subretinal fluid; Negative for Intraretinal fluid, Drusen. Interval Change Right Eye Initial. Left Eye Initial. [facility] 04-05-2025 Note Date of Procedure 04/05/2025. Underwriting Account Representative Information Ton Cylinder Inspector: JOSÉ MIGUEL. Quality Right Eye Good. Left Eye Good. Interpretation Right Eye Findings include Negative for CNV. Left Eye Findings include CNV. Notes CNV [facility] 04-05-2025 Note [facility] 04-05-2025 History of Present illness Narrative 69 year old female presents for evaluation of wavy lines in the left eye. She lives in [place] and travel to [facility] every 4 weeks with her for appointments. 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 - Signs and symptoms of endophthalmitis reviewed with pt. - Patient wishes to proceed with Avastin # Family history of AMD Mother with wet AMD Brother with history of eye injection, diagnosis unknown # Duodenal cancer # sp Whipple procedure 03/17/2025 No chemotherapy treatments Follow-up 4 to 6 weeks for exam, OCT and FUENTES OS I have confirmed and edited as necessary the relevant ophthalmic history, ROS, and the neuro exam findings as obtained by others. I have discussed the case and the management of this patient's care with the Resident/Fellow, if applicable. I also have reviewed and agree with the assessment and plan as stated above and agree with all of its relevant components. Belgica Landrum MD FA/ICG to evaluate for CNV, polyps, CSCR documented in this encounter [facility] 04-02-2025 Telephone encounter Note Returned call to patient to inform her that she would need take the medication and that there is a financial assistance program for patients that I would email her the information. I also asked that she call me back on my cell. [facility] Work Phone: 04-02-2025 Miscellaneous Notes Returned call to patient to inform her that she would need take the medication and that there is a financial assistance program for patients that I would email her the information. I also asked that she call me back on my cell. Pt is calling because she wants to know if she need to take the Ppdjtu-zigqgvnk-qsepqrj medication because the medication is very high godfrey goel and she was told she my not need medication, Please give her a call documented in this encounter [facility] 03-30-2025 Note [facility] 03-29-2025 Telephone encounter Note Pt is calling because she wants to know if she need to take the Wdtdiq-wsxienon-vcwdmhr medication because the medication is very high godfrey goel and she was told she my not need medication, Please give her a call [facility] 03-25-2025 Note [facility] 03-25-2025 Note [facility] 03-25-2025 Note [facility] 03-25-2025 Note [facility] 03-24-2025 Note [facility] 03-23-2025 Note [facility] 03-22-2025 Note [facility] 03-21-2025 Note [facility] 03-20-2025 Note [facility] 03-19-2025 Note [facility] 03-19-2025 Note [facility] 03-18-2025 Note [facility] 03-18-2025 Note [facility] 03-17-2025 Note [facility] 03-17-2025 Note [facility] 03-17-2025 Note [facility] 03-17-2025 Note [facility] 03-10-2025 Note [facility] 03-10-2025 History of Present illness Narrative Surgical Oncology Patient returns to follow up on MRI liver No changes since I saw her last Blood pressure 115/67, pulse 88, temperature 36.6 C (97.9 F), temperature source Temporal, resp. rate 16, weight 56.9 kg (125 lb 7.1 oz), last menstrual period 09/23/2012, SpO2 100%. Heart Reg Breathing comfortably on RA Sclera anicteric MRI liver directly reviewed - no evidence of liver metastasis Prealb 13 CRP 2.4 HbA1c 5.2% Dx: duodenal/ampullary adenocarcinoma, iron deficiency anemia Plan: Proceed with pancreatoduodenectomy Iron infusions arranged Discussed GI soft diet and additional ensures/boosts Consent obtained Medical Decision Making: Problems: High: Illness/injury w/ threat to life/body function Data: Unique test result(s) reviewed: 3+ Risk: High: Decision on elective major surgery w/ risk factors Medical Decision Making Level: 5 - High Earl Cardenas MD documented in this encounter [facility] 03-09-2025 Telephone encounter Note Contacted [facility] to review results: Hgb 8.1. No evidence of hemolysis Vitamin B12 and folate are stable All questions were answered. Nancy Hills APRN.CNP [facility] 03-09-2025 Miscellaneous Notes Contacted [facility] to review results: Hgb 8.1. No evidence of hemolysis Vitamin B12 and folate are stable All questions were answered. Nancy Hills APRN.BRIANNA documented in this encounter [facility] 03-09-2025 Note [facility] 03-09-2025 Instructions Nancy Hills APRN.CNP - 03/09/2025 10:14 AM EDT Images from the original note were not included. It was a pleasure meeting you today! Iron Dextran infusion on Saturday at 10:45 Start oral iron daily with Vitamin C separate from dairy products and other medications documented in this encounter [facility] 03-09-2025 Note [facility] 03-09-2025 History of Present illness Narrative Reviewed and confirmed with patient that there were no changes in the the nursing assessment and vitals that were completed on March 09, 2025 during previous provider appointment. Gabriela Simons RN [facility] CLINICAL CONSULTATION NOTE Hematologic Oncology and Blood Disorders PATIENT NAME: Silvana Gómez DATE OF SERVICE: March 09, 2025 The patient is referred by Earl Cardenas for further evaluation of iron deficiency anemia. CHIEF COMPLAINT: Iron Deficiency Anemia HISTORY OF THE PRESENT ILLNESS: Silvana Gómez is a 69 year old female who presents for evaluation of anemia. 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 - Recent labs showed Hgb 8.1 g/dL. - Reports fatigue, lightheadedness, and brain fog. - Denies hematochezia, hematuria, epistaxis, or gum bleeding. - Denies dyspnea or chest pain. - No history of blood transfusions or iron infusions. - Family history of anemia in mother, who required a blood transfusion and iron supplements in her 80s. - Recent colonoscopy and EGD were clear; no bleeding noted. - Denies vegan or vegetarian diet; consumes gluten-free diet due to 's dietary needs. - Decreased appetite and nausea, leading to a 10 lb weight loss over the past few months. - Reports weekly night sweats, but not severe enough to require changing clothes. - Denies paresthesia in hands or feet. - Previously took iron supplements but discontinued due to constipation; recently took two low-dose iron pills a week apart. - Denies recent alcohol consumption; occasionally drinks protein shakes. - Takes PreserVision for macular degeneration and vitamin D3 supplements. - Reports longstanding GERD. - Denies chemotherapy for breast cancer; treated with radiation, tamoxifen, and surgery. -Scheduled for surgery on March [address] Cardenas for duodenal mass 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 PONV (postoperative nausea and vomiting) 03/05/2025 PAST SURGICAL HISTORY: PAST SURGICAL HISTORY Procedure Laterality Date DILATION & CURETTAGE DX&/THER NONOBSTETRIC ~1982 Dilation & curettage EXC BREAST LES PREOP PLMT RAD MARKER OPEN 1 LES 2005 & 2006 left breast core Bx & then NL Exc Bx: benign EXC BREAST LES PREOP PLMT RAD MARKER OPEN 1 LES 2008 right breast stereotactic Bx & then had NL PM EXTRACTION, ERUPTED TOOTH OR EXPOSED ROOT (ELEVATION AND/OR FORCEPS REMOVAL) ~1975 wisdom teeth extraction MASTECTOMY, PARTIAL 11/10/2009 right re-excision partial mastectomy and sentinel node biopsy TONSILLECTOMY PRIMARY/SECONDARY <AGE 12 ~1959 Tonsillectomy CURRENT MEDICATIONS: cholecalciferol, vitamin D3, (VITAMIN D3 ORAL) Take by mouth. ondansetron orally disintegrating (ZOFRAN ODT) 4 mg disintegrating tablet Take 1 tablet by mouth every 8 hours as needed for nausea/vomiting. Senna 8.6 mg tab Take 2 tablets by mouth daily at bedtime. polyethylene glycol 3350 (MIRALAX) 17 gram/dose powder Take 17 g by mouth once daily. Dissolve dose in 4 - 8 ounces of liquid and take as directed. fexofenadine (ADEOLA) 180 mg tablet once daily. omeprazole (PRILOSEC) 10 mg capsule Take 10 mg by mouth every 24 hours. cetirizine HCl (ZYRTEC) 10 mg chewable tablet Take 20 mg by mouth. rosuvastatin (CRESTOR) 10 mg tablet Take 10 mg by mouth once daily. SYNTHROID 75 mcg tablet Take 75 mcg by mouth once daily. VIT C/MAISHA AC/LUT/COPPER/ZNOX (PRESERVISION LUTEIN ORAL) Take by mouth. ALLERGIES: ALLERGIES Allergen Reactions Seasonal Allergies FAMILY HISTORY: FAMILY HISTORY Problem Relation Age of Onset other (Other Cancers) Other no known family hx of breast, ovarian, uterine, prostate, brain, colon, lung, pancreatic, thyroid, leukemia, melanoma, or sarcoma Heart Attack Father 60 had cabg x4 Heart Brother 50 a-fib had 2 ablations SOCIAL HISTORY: Social History Tobacco Use Smoking status: Never Passive exposure: Never Smokeless tobacco: Never Vaping Use Vaping status: Never Used Substance Use Topics Alcohol use: Yes Alcohol/week: 2.0 standard drinks of alcohol Types: 1 Glasses of Wine (5oz), 1 Cans of Beer (12oz) per week Comment: occas 2 drinks Drug use: No REVIEW OF SYSTEMS: Ten systems reviewed and negative except for those recorded in the HPI. PHYSICAL EXAMINATION: [facility] 09/23/2012 Gen: 69 year old female in no acute distress who is alert and cooperative throughout the interview HEENT: normocephalic, atraumatic, PERRL, EOMI, pharynx clear with pink mucosa and no lesions Nodes: cervical, supraclavicular, axillary and inguinal nodes non-palpable Lungs: Lungs clear to auscultation. No wheezing, rhonci, rales Heart: RRR without murmurs, gallops or rubs Abdomen: soft, non-tender without masses. No palpable HSM, BS normal Musculoskeletal: no significant joint deformities Skin: no rashes, bruising or petechiae Extremities: non-cyanotic; no edema Neuro: Gait normal. No focal weakness Psych: mood and affect normal Laboratory: I have personally reviewed the patients labs and reviewed them with the patient Latest Ref Rng 05/08/2024 03/05/2025 WBC 3.70 - 11.00 k/uL 5.21 6.92 RBC 3.90 - 5.20 m/uL 4.62 3.28 (L) Hemoglobin 11.5 - 15.5 g/dL 13.6 8.1 (L) Hematocrit 36.0 - 46.0 % 40.9 26.9 (L) MCV 80.0 - 100.0 fL 88.5 82.0 MCH 26.0 - 34.0 pg 29.4 24.7 (L) MCHC 30.5 - 36.0 g/dL 33.3 30.1 (L) RDW-CV 11.5 - 15.0 % 13.8 15.6 (H) Platelet Count 150 - 400 k/uL 201 346 MPV 9.0 - 12.7 fL 9.1 10.2 Neut% % 57.3 66.3 Abs Neut (ANC) 1.45 - 7.50 k/uL 2.99 4.59 Lymph% % 23.6 18.5 Abs Lymph 1.00 - 4.00 k/uL 1.23 1.28 Richmond% % 10.6 8.7 Abs [place] <0.87 k/uL 0.55 0.60 Eosin% % 7.7 5.6 Abs Eosin <0.46 k/uL 0.40 0.39 Baso% % 0.6 0.6 Abs Baso <0.11 k/uL 0.03 0.04 Immature Gran % % 0.2 0.3 IMMATURE GRANS (ABS) <0.10 k/uL <0.03 <0.03 NRBC /100 WBC 0.0 0.0 Absolute nRBC <0.01 k/uL <0.01 <0.01 DTYPE Auto Auto Iron 41 - 186 ug/dL 17 (L) TIBC 232 - 386 ug/dL 423 (H) Transferrin Saturation 15.0 - 57.0 % 4.0 (L) CRP <0.9 mg/dL 2.4 (H) Ferritin 14.7 - 205.1 ng/mL 17.8 03/05/2025 CT ABD/PEL W/ IVCON: Impression IMPRESSION: No interval change from 02/19/2025. Stable 4 cm segment of D2/D3 duodenum with circumferential wall thickening suspicious for primary neoplasm. No upstream bowel obstruction. Stable biliary dilation. Hazy soft tissue stranding along hepatic hilum and surrounding the common hepatic artery/celiac. Stable enlarged, likely metastatic and centrally necrotic peripancreatic lymph node. Indeterminate above fluid attenuation hepatic lesions can be further characterized on upcoming liver MR (scheduled for 03/07/2025). Assessment and Plan: Silvana Gómez is a 69 year old female who presents for evaluation of anemia. 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 Iron deficiency anemia due to chronic blood loss (D50.0) Hemoglobin level at 8.1 g/dL, which is below the normal range for women (11.5-12 g/dL). Iron studies indicate low ferritin levels. WBC and platelet count are normal. Inflammatory markers are elevated. Recent colonoscopy and EGD did not reveal any active bleeding per patient, mass was identified in colon. Patient experiences fatigue, dizziness, brain fog, and decreased appetite. Family history of anemia in the mother, who required iron supplements. No history of blood transfusions or iron infusions. Upcoming surgery scheduled for March 17. With plans for upcoming surgery to remove mass, discussed r/b/se of IV Iron and she is agreeable to proceed. - Ordered IV iron dextran infusion x 1 - Prescribed oral iron supplement to be taken daily with vitamin C, separate from thyroid medication by at least 1-2 hours until the iron infusion - Continue taking Senna to manage constipation. - Provided a list of iron-rich foods to incorporate into the diet. - Ordered additional blood work: LDH, haptoglobin, reticulocyte count, vitamin B12, and folate levels. - Scheduled follow-up appointment 6 weeks after surgery to monitor hemoglobin levels and assess the need for further IV Iron Treatment Patient is agreeable to above plan. The patient's questions were answered to satisfaction. The patient is aware to call the office sooner if symptoms worsen or questions arise prior to office follow up. Total time of this visit, including time spent fxge-nf-idak with the patient and/or via video/audio, and also in preparing for today's visit for medical decision making, documentation, and discussion with providers involved with the care of the patient was 60 minutes. Greater than 50% of total time was spent in counseling and/or coordination of care. Nancy Hills APRN.CNP Department of Benign Hematology 03/09/2025 CC: Earl Leungyce [address] [facility] [id number] documented in this encounter [facility] 03-09-2025 Note [facility] 03-07-2025 History of Present illness Narrative Radiology Service Progress Note DATE OF SERVICE: March 07, 2025 TIME: 10:35 AM PATIENT WEIGHT: 128 LBS PATIENT IDENTITY VERIFICATION COMPLETED USING TWO (2) STANDARD IDENTIFIERS: Name and Date of confirmed by patient verbally and Name and Date of confirmed by identification band. FALL SCREENING: Has the patient had 2 falls in the last year or 1 fall with injury or currently using an Ambulatory Assistive Device (Walker, Cane, Wheelchair, Crutches, etc.)? No PATIENT GENDER DATA: Assigned female at . status: : No status: NO. ALLERGIES: Reviewed and unchanged CONTRAST ALLERGY: No EXAM: MRI - CONTRAST TYPE: GROUP II IV SITE: Ambulatory: A peripheral IV was started in the Left antecubital site with a Angio cath: 22 gauge. and A Saline lock was inserted per protocol IV SITE APPEARANCE: Clean,Dry and Intact SIGNATURE: Janine Mercer RN PATIENT NAME: Silvana Gómez DATE: March 07, 2025 TIME: 10:35 AM Radiology Service Progress Note PATIENT NAME: Silvana Gómez DATE OF SERVICE: March 07, 2025 TIME: 11:09 AM PATIENT IDENTITY VERIFICATION COMPLETED USING TWO (2) IDENTIFIERS: Name and Date of confirmed by patient verbally and Name and Date of confirmed by identification band. FALL SCREENING: Has the patient had 2 falls in the last year or 1 fall with injury or currently using an Ambulatory Assistive Device (Walker, Cane, Wheelchair, Crutches, etc.)? No PATIENT GENDER DATA: Assigned female at . status: : No status: NO. PATIENT RELEVANT IMPLANT DATA REVIEWED: Not Applicable PATIENT PRESENTS WITH AN IMPLANTABLE OR ATTACHED WATCH ELECTRICIAN: No RADIOLOGY DEPARTMENT: MR; Exam(s) Completed: Body: Liver (routine). Lavender Administered: No PERIPHERAL IV DATA: Not applicable SIGNED BY: RT Chyna(R) March 07, 2025 11:09 AM documented in this encounter [facility] 03-07-2025 Note [facility] 03-07-2025 Note [facility] 03-05-2025 Note [facility] 03-05-2025 History of Present illness Narrative Behavioral [facility] [place] Name: Silvana Gómez MR#: [id number] Date: 03/05/2025 Time: hour Referred by: Dr. Cardenas Reason for Referral: address psychological factors as they can affect post-operative recovery. Information relayed back to referral source via electronic medical record Her chart was reviewed and she gave her own history- she says she attributed her non-specific symptoms to stress initially but once she sought care she came up to [facility] to be seen by Dr. Cardenas for her surgery. She is very active and describes herself as high strung. She was seen with her . The basic underlying psychological and physiological mechanisms behind the brain body connection were explained. She was introduced to the concepts and techniques that she can employ to help with pain and healing after surgery. She was given the link to the Behavioral Medicine Program website, instructed on the use of the relaxation recordings, and told of the informational content. She was given the opportunity to ask questions and informed that she could be seen again. Batool Galvin, Ph.D. documented in this encounter [facility] 03-05-2025 Note [facility] 03-05-2025 History of Present illness Narrative Images from the original note were not included. 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 CT A/P also demonstrated large liver cysts and other lesions too small to characterize. - MRI liver to further characterize and assess liver lesions - Discuss at tumor board - Possible Whipple 03/17/25 - Discussed deferring diagnostic lap, as she would still benefit from palliative GJ and HJ if found to have metastatic disease burden intraoperatively. 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 She had 3 bouts of unexplained fevers started in September as well as increasing feelings of epigastric fullness, such that she felt her bras were starting to fit too tightly. She then started developing pressure and discomfort that extended to the RUQ and back. A RUQ ultrasound performed to assess for GB symptoms showed multiple liver cysts, biliary sludge and CBD dilation. Given normal LFTs and atypical symptoms for primary GB pathology, a local general surgeon recommended a CT scan which showed a duodenal mass with intrahepatic ductal dilatation and CBD dilation with irregular circumferential ampullary thickening. It also redemonstrated liver cysts with other subcentimeter lesions too small to characterize. She still reports epigastric pressure radiating around her back. She also reports frequent nausea and 10 lbs weight loss. She has not vomited and continues to tolerate meals, but has poor appetite. Eating does worsen her symptoms. She underwent a EGD with biopsy 03/01/2025 showed a mass in D2 extending for 3 cm semi-circumferentially (>50 of the lumen). She is not currently aware of pathology results. Previous Abdominal Surgeries: None Cardiopulmonary Disease: SVT Last Colonoscopy/EGD: 02/28/2025 Anticoagulation/Antiplatelet: None 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 PONV (postoperative nausea and vomiting) 03/05/2025 PAST SURGICAL HISTORY: PAST SURGICAL HISTORY Procedure Laterality Date DILATION & CURETTAGE DX&/THER NONOBSTETRIC ~1982 Dilation & curettage EXC BREAST LES PREOP PLMT RAD MARKER OPEN 1 LES 2005 & 2006 left breast core Bx & then NL Exc Bx: benign EXC BREAST LES PREOP PLMT RAD MARKER OPEN 1 LES 2008 right breast stereotactic Bx & then had NL PM EXTRACTION, ERUPTED TOOTH OR EXPOSED ROOT (ELEVATION AND/OR FORCEPS REMOVAL) ~1975 wisdom teeth extraction MASTECTOMY, PARTIAL 11/10/2009 right re-excision partial mastectomy and sentinel node biopsy TONSILLECTOMY PRIMARY/SECONDARY <AGE 12 ~1959 Tonsillectomy FAMILY HISTORY: FAMILY HISTORY Problem Relation Age of Onset other (Other Cancers) Other no known family hx of breast, ovarian, uterine, prostate, brain, colon, lung, pancreatic, thyroid, leukemia, melanoma, or sarcoma Heart Attack Father 60 had cabg x4 Heart Brother 50 a-fib had 2 ablations SOCIAL HISTORY: Social History Tobacco Use Smoking status: Never Passive exposure: Never Smokeless tobacco: Never Vaping Use Vaping status: Never Used Substance Use Topics Alcohol use: Yes Alcohol/week: 2.0 standard drinks of alcohol Types: 1 Glasses of Wine (5oz), 1 Cans of Beer (12oz) per week Comment: occas 2 drinks Drug use: No MEDICATIONS: Prior to Admission Medications: cholecalciferol, vitamin D3, (VITAMIN D3 ORAL) Take by mouth. fexofenadine (ADEOLA) 180 mg tablet once daily. omeprazole (PRILOSEC) 10 mg capsule Take 10 mg by mouth every 24 hours. cetirizine HCl (ZYRTEC) 10 mg chewable tablet Take 20 mg by mouth. rosuvastatin (CRESTOR) 10 mg tablet Take 10 mg by mouth once daily. SYNTHROID 75 mcg tablet Take 75 mcg by mouth once daily. VIT C/MAISHA AC/LUT/COPPER/ZNOX (PRESERVISION LUTEIN ORAL) Take by mouth. No current facility-administered medications for this visit. ALLERGIES: ALLERGIES Allergen Reactions Seasonal Allergies COMPLETE REVIEW OF SYSTEMS: GENERAL: Positive history of weight loss and fevers RESPIRATORY: Negative for cough, wheezing or shortness of breath. CARDIOVASCULAR: Negative for chest pain, leg swelling or palpitations. GI: Positive for abdominal discomfort, nausea MUSCULOSKELETAL: Negative for joint pain or swelling, back pain or muscle pain. SKIN: Negative for lesions, rash, and itching. NEURO: No history of headaches, syncope, paralysis, seizures or tremors PHYSICAL EXAM: BP 114/56 Pulse 72 Temp 36.4 C (97.5 F) (Temporal) Ht 165.1 cm (5' 5 ) Wt 58.1 kg (128 lb) LMP 09/23/2012 BMI 21.30 kg/m General: Well developed and well nourished appearance. No acute distress. Skin: No rash on chest, arms or legs. Warm, dry. Head/Eyes: Sclera clear, normal conjunctiva. Lungs: Normal respiratory effort on room air Heart: Regular rate Abdomen: Soft abdomen, nontender, nondistended without mass. Musculoskeletal: No kyphoscoliosis. No joint deformities. Extremities: No clubbing or cyanosis. No edema. Warm digits. Neurologic/Psychiatric: Oriented to person, place, time. Normal affect. No gross focal neurologic deficits. DATA: Laboratory: Recent Labs 03/05/25 1106 CREAT 0.60* SIGNATURE: Macey Red MD DATE of SERVICE: 03/05/2025 TIME of SERVICE: 3:43 PM [facility] [place], OPER[facility] BY [facility] ST[facility]FF PHYSICIAN NOTE OF PERSONAL INVOLVEMENT IN CARE I have reviewed the consult note obtained and documented by the resident and I personally participated in the abad components. I have discussed the case and management of the patient's care. The following comments revise or confirm relevant abad components of the note. 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 There may be regional jay metastasis but no clear distant mets (CT-CAP reviewed, MRI pending Saturday) CA19-9 68 ALP increased but bili normal at this time 1. Nausea (R11.0) - Prescribed Zofran to be taken every 8 hours as needed. - Discussed potential side effect of constipation. - Patient advised to take Zofran 30 minutes before larger meals to help manage nausea. 2. 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 - Colonoscopy performed concurrently was normal. - CT scan showed circumferential thickening in the proximal duodenum, CBD dilation, and intrahepatic ductal dilation. - MRI scheduled for Saturday to assess for liver metastases. - Discussed potential surgical intervention, including Whipple procedure if no metastases are found. - If metastases are present, discussed palliative procedures such as biliary bypass. - Patient to follow up on Saturday at 9:00 AM in [facility] for further discussion and to sign a permission form for surgery if indicated. - Scheduled for a tentative surgery date on the . 3. Iron deficiency anemia due to chronic blood loss (D50.0) - Hemoglobin 10.4 g/dL, hematocrit 33.8% on 01/07/2025. - Additional labs ordered to assess nutritional markers; patient instructed to return to the lab to complete blood draws. Medical Decision Making: Problems: High: Illness/injury w/ threat to life/body function Data: Unique test result(s) reviewed: 3+ Medical Decision Making Level: 4 - Moderate Earl Cardenas MD Intake information documented in the prior visit with Dr. Kamar hathaway. documented in this encounter [facility] 03-05-2025 Note HNO ID: [id number] Author: BARRON LEE MA Service: ? Author Type: Sterile Process Coordinator Type: Progress Notes Filed: 03/10/2025 14:22 Note Text: Intake information documented in the prior visit with Dr. Kamar hathaway. [facility] 03-05-2025 Instructions Ro Pereira APRN.[facility] - 03/05/2025 2:25 PM EDT Images from the original note were not included. [facility] PATIENT PREOPERATIVE INSTRUCTIONS No ref. provider found has scheduled you for your procedure at this surgery center: Main [facility] OR Scheduling Office: [phone] --[address] [place] [address]. Please read below carefully for your personalized instructions. Dietary Restrictions: - No solid food after midnight. - You may have 12 ounces of clear liquids (water, clear juices such as apple juice or gatorade, carbonated beverages, clear tea, black coffee, jello) until 2 hours before scheduled arrival at facility. Medications: Unless instructed differently below, stay on all of your medications until your surgery. If you start any new medications after today's visit, please contact your surgeon. Pre-Surgery Med Instructions Medication Instructions cholecalciferol, vitamin D3, (VITAMIN D3 ORAL) Do not take the day of surgery omeprazole (PRILOSEC) 10 mg capsule If you normally take this medication in the morning, take the morning of surgery. cetirizine HCl (ZYRTEC) 10 mg chewable tablet Okay to take the night before surgery rosuvastatin (CRESTOR) 10 mg tablet If you normally take this medication in the morning, take the morning of surgery. SYNTHROID 75 mcg tablet If you normally take this medication in the morning, take the morning of surgery. VIT C/MAISHA AC/LUT/COPPER/ZNOX (PRESERVISION LUTEIN ORAL) Do not take the day of surgery If you start any new medications after today's visit, please contact the surgeon's office. If you are currently using a tryt-muc-pumo injectable or oral medication for diabetes or weight loss such as Dulaglutide (Trulicity), Exenatide (Byetta, Bydureon), Liraglutide (Victoza, Saxenda), Semaglutide (Ozempic, Wegovy, Rybelsus), or Tirzepatide (Mounjaro), the medicine should be stopped at least 7 days before surgery. These medicines can cause food to remain in your stomach for a very long time and increase the risks from surgery and anesthesia. Not stopping the medication for a long enough time may result in your surgery being rescheduled. Blood Thinning Medications: - Stop NSAIDS (Ibuprofen, Advil, Aleve, Motrin, Celebrex, Mobic, etc.) 7 days before surgery, as directed by your surgeon. - Stop Aspirin 7 days before surgery, as directed by your surgeon. - Stop ALL herbal and dietary supplements 14 days before surgery. - You may take Tylenol (Acetaminophen) or any of your pain medications that do not contain aspirin or NSAIDS as needed. Important Reminders: - Candy, mints, and tobacco products are NOT permitted the morning of surgery. - Hearing aids, dentures and glasses may be worn the morning of surgery. - NO jewelry, body piercings, makeup, hairpins or contacts are to be worn the day of surgery. If you develop symptoms such as a fever, cold, or flu, or have other changes to your health within TWO DAYS of scheduled surgery or the morning of surgery, please contact the surgery center above. Personal Belongings: -Please have photo ID and insurance cards. -If you do not have a copy of advance directives on file with us, please bring a copy with you on the day of surgery. - Leave ALL valuables and money at home or with family members. - Please bring high-quality footwear, such as sneakers, to the hospital for ambulating post-surgery. Arrival Time for Surgery: - To obtain your arrival time for surgery, call your physician's office the day before your surgery. - If you have received different instructions about finding out your arrival time from your surgeon, please follow those instructions. - If your surgery is scheduled for Saturday, call the Saturday before. Your surgeon s fishing gear mechanic will tell you what time to call the office. - If you have not reached the departmental fishing gear mechanic by 5 P.M., call [phone] after 5 P.M. the day before your surgery. Please be aware that emergency situations arise, which may delay or change your surgical time. If this happens, we will notify you as soon as possible and regret any inconvenience. If you already have an Advance Directive, please fax a copy to [phone] or email to for it to be added to your chart. If you do not have an Advance Directive, you can find the appropriate form and more information at [email or web address]. We recommend that you complete the Advance Directive form found on the website and bring it with you the day of your surgery. It can be witnessed and scanned into your chart that day. Ro Pereira APRN.[facility]ANNA documented in this encounter [facility] 03-05-2025 History and physical note Images from the original note were not included. [facility] HISTORY AND PHYSICAL EXAMINATION SERVICE DATE: 03/05/2025 SERVICE TIME: 2:00 PM PRIMARY CARE PHYSICIAN: Jamie Ramirez MD Assessment Patient has the following medical conditions which may affect vazquez-operative course: Personal history of malignant neoplasm of breast History right breast cancer 10/2009 completed resection 11/2009 repeat excision completed Received radiation Hypothyroidism Managed with Levothyroxine (SYNTHROID) Followed by PCP Hyperlipidemia Managed with rosuvastatin (CRESTOR) Liver cyst 03/05/25 CT showed -5-10 fluid attenuation lesions compatible with hepatic cysts, unchanged. Largest in the inferior right lobe measures 8.3 cm. Followed by Gen surgery GERD (gastroesophageal reflux disease) Managed with omeprazole (PRILOSEC) PONV (postoperative nausea and vomiting) Patient reported ANESTHESIA FINDINGS: Intubation History: No history of difficult intubation. No abnormal airway history Significant Anesthesia Considerations: potential postop nausea/vomiting Airway History: No history of difficult airway No abnormal airway history Noel Activity Status Index: METS: Walk indoors, such as around the house (1.75 METs) Do light work around the house, such as dusting or washing dishes (2.70 METs) Take care of self; that is eating, dressing, bathing, using the toilet (2.75 METs) Walk a block or two on level ground (2.75 METs) Do moderate work around the house, such as vacuuming, sweeping floors, or carrying in groceries (3.50 METs) Do yardwork, such as raking leaves, weeding, or pushing a power mower (4.50 METs) Climb a flight of stairs or walk up a hill (5.50 METs) Participate in moderate recreational activites, such as golf, bowling, dancing, doubles tennis, or throwing a baseball or football (6.00 METs) Participate in strenuous sport, such as swimming, singles tennis, football, basketball, or skiing (7.50 METs) Do heavy work around the house, such as scrubbing floors, lifting or moving heavy furniture (8.00 METs) DASI Score: 44.95 Patient denies any chest pain or undue shortness of breath with the above physical activity. Clinical Frailty Scale: 3. Well, with treated comorbid disease STOP-Bang Score: Patient over 50 years old Denies snoring loudly Denies feeling tired, fatigued, or sleepy during the daytime Has not been observed to stop breathing or choking/gasping during sleep Denies having high blood pressure BMI less than or equal to 35 kg/m^2 Does not have a large neck Non-male patient STOP-Bang Score: 1 [id number] Score: Age: 65-74 Sex: female CHF history: No Hypertension history: No Stroke/TIA/thromboembolism history: No Vascular disease history: No Diabetes history: No [id number] Score: 2 ARISCAT Score: Age: 51-80 Preoperative SpO2: >=96% Respiratory infection in the last month: No Preoperative anemia: Yes Duration of surgery: >3 hrs Emergency procedure: No ARISCAT Score: I - PHYSICAL EVALUATION AIRWAY Patient intubated: No. Tracheostomy tube not present Mallampati: II. TM distance: >3 FB. Neck ROM: full ROM without neurological symptoms. Mouth opening: adequate. Short neck: no. Thick neck: no Dominique present: no Lip Bite Test: I Microretrognathia/Micronagthia/Reces sed Chin: No DENTAL Dental findings: teeth intact. Additional comments: Crowns upper and lower. II - ANESTHESIA PLAN Anesthetic Plan: other Anesthetic plan additional comments: *PACC/TCI - anesthesia choice. Beta Chika Monitoring Plan Post Procedure Analgesic Plan Prepared for Surgery: optimally prepared for surgery, pending [see comment]. Type and Screen, CONABO, CBC, CMP, Iron+TIBC, Ferritin, EKG (ordered by surgery) and DOS exam CONSULTS: Patient does not require consults for optimization at this time Planned Anesthetic: other anesthesia choice The Following Tests/Procedures Have Been Initiated: Orders Placed This Encounter cholecalciferol, vitamin D3, (VITAMIN D3 ORAL) Sig: Take by mouth. REASON FOR VISIT: Silvana Gómez is a 69 year old female who is scheduled for Procedure(s): LAPAROSCOPY DIAGNOSTIC (N/A) WHIPPLE PROCEDURE, WITH PANCREATOJEJUNOST (N/A) at the request of Earl Douglas MD for consultation. My final recommendation will be communicated back to the requesting physician by way of shared medical record or letter. Subjective The patient has the following: COVID-19 Immunization Status Current Care Gaps Covid-19 Vaccine () Overdue since 05/24/2024 08/12/2023 Imm Admin: COVID-19 vaccine, age 12+ yr, season (Cinetraffic) 10/26/2020 Imm Admin: COVID-19 original vaccine, full dose, monovalent (MODERNA) 09/28/2020 Imm Admin: COVID-19 original vaccine, full dose, monovalent (MODERNA) Only the first 3 history entries have been loaded, but more history exists. 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 She endorses having a CT scan performed which revealed a duodenal mass. A CT scan performed today which showed table 4 cm segment of D2/D3 duodenum with circumferential wall thickening suspicious for primary neoplasm. Scheduled for LAPAROSCOPY DIAGNOSTIC WHIPPLE PROCEDURE, WITH PANCREATOJEJUNOS on 03/17/25. Denies any fever, chills, vomiting, SOB, dizziness, lightheadedness, palpitations, syncope, chest pain or abdominal pain. She has elected to proceed with the surgical procedure. REVIEW OF SYSTEMS: General: She reports having fevers on and off, denies at this time. No weight loss, malaise or fevers. Negative for: malaise and fever. Neurological: No history of TIA's, stroke, TELECOMMUNICATOR tumor, impaired sensorium, hemiplegia, paraplegia or quadraplegia. No neurological symptoms or problems. Negative for: impaired sensorium, seizures, TIA and strokes. Respiratory: No history of current cough or dyspnea, or pneumonia in the past 6 weeks. No history of respiratory/pulmonary symptoms or problems. Negative for: asthma, bronchitis, COPD, current cough, dyspnea, home oxygen, orthopnea, pneumonia within 6 weeks, tobacco use, URI < 2 weeks and obstructive sleep apnea. Cardiovascular: Positive for: hyperlipidemia Negative for: abdominal aortic aneurysm, AICD/PPM, angina, anticoagulation therapy, atrial fibrillation, CAD, CHF, congenital heart defect, DVT/PE, hypertension, recent [place] and murmur/valvular heart disease.Arrhythmia: SVT. GI: See HPI. Positive for: liver disease (Liver cyst) and nausea Negative for: abdominal pain, dysphagia, diverticulitis, GERD, GI bleed <30 days, heartburn, hepatitis, irritable bowel syndrome, inflammatory bowel disease, pancreatitis, vomiting and ETOH >2 drinks/day (4 drinks per week). : No history of dysuria, frequency or incontinence, stones or chronic kidney disease. No difficulty urinating, nocturia > 1 time per night or hematuria. Negative for: on dialysis, dysuria, flank pain, frequent urination, hematuria, nephrolithiasis and urgency. 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 Negative for: vaginal bleeding and vaginal discharge. Endocrine: Positive for: hypothyroidism. Negative for: diabetes mellitus, hyperthyroidism and hyperparathyroidism. Hematology: No history of bleeding or clotting disorder. Patient is not taking anti-coagulation or platelet medications. No history of hematological symptoms or problems. Negative for: anemia. Oncology: + Right breast cancer. No history of CA metastasis, chemo within 30 days, or radiotherapy within 90 days. No history of oncological symptoms or problems. Psych: No history of psychiatric symptoms or problems. Negative for: ADHD, anxiety, bipolar disorder, depression, drug dependency and Marijuana Use. Musculoskeletal: Negative for joint pain or swelling, back pain or muscle pain. Negative for: back pain, joint pain, swelling and rheumatoid arthritis. Skin: Negative for: lesions, itching and rash. 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 PONV (postoperative nausea and vomiting) 03/05/2025 PAST SURGICAL HISTORY Procedure Laterality Date DILATION & CURETTAGE DX&/THER NONOBSTETRIC ~1982 Dilation & curettage EXC BREAST LES PREOP PLMT RAD MARKER OPEN 1 LES 2005 & 2006 left breast core Bx & then NL Exc Bx: benign EXC BREAST LES PREOP PLMT RAD MARKER OPEN 1 LES 2008 right breast stereotactic Bx & then had NL PM EXTRACTION, ERUPTED TOOTH OR EXPOSED ROOT (ELEVATION AND/OR FORCEPS REMOVAL) ~1975 wisdom teeth extraction MASTECTOMY, PARTIAL 11/10/2009 right re-excision partial mastectomy and sentinel node biopsy TONSILLECTOMY PRIMARY/SECONDARY Tonsillectomy FAMILY HISTORY Problem Relation Age of Onset other (Other Cancers) Other no known family hx of breast, ovarian, uterine, prostate, brain, colon, lung, pancreatic, thyroid, leukemia, melanoma, or sarcoma Heart Attack Father 60 had cabg x4 Heart Brother 50 a-fib had 2 ablations Social History Tobacco Use Smoking status: Never Passive exposure: Never Smokeless tobacco: Never Vaping Use Vaping status: Never Used Substance Use Topics Alcohol use: Yes Alcohol/week: 2.0 standard drinks of alcohol Types: 1 Glasses of Wine (5oz), 1 Cans of Beer (12oz) per week Comment: occas 2 drinks Drug use: No Prior to Admission medications as of 03/05/25 1419 Medication Sig Last Dose Taking cholecalciferol, vitamin D3, (VITAMIN D3 ORAL) Take by mouth. Yes omeprazole (PRILOSEC) 10 mg capsule Take 10 mg by mouth every 24 hours. Yes cetirizine HCl (ZYRTEC) 10 mg chewable tablet Take 20 mg by mouth. Yes rosuvastatin (CRESTOR) 10 mg tablet Take 10 mg by mouth once daily. Yes SYNTHROID 75 mcg tablet Take 75 mcg by mouth once daily. Yes VIT C/MAISHA AC/LUT/COPPER/ZNOX (PRESERVISION LUTEIN ORAL) Take by mouth. Yes fexofenadine (ADEOLA) 180 mg tablet once daily. Medication Comments documented by Bailee Harp on 04/27/2013 at 1312. Patient taking no meds ALLERGIES Allergen Reactions Seasonal Allergies Objective PHYSICAL EXAM: General: alert and oriented and healthy appearance. Skin: normal color, no rash or lesions. HEENT: pupils equal round and pupils reactive to light. Cardiovascular: regular rate and rhythm, normal S1 and S2, no rub, murmurs, or gallop. Respiratory: normal breath sounds, no wheezes or crackles. No chest wall deformity or tenderness. Abdomen: bowel sounds present and soft. Extremities: no deformity, no edema or tenderness, no joint swelling or clubbing. Neurological: normal cognition and motor skills. Gait normal. No weakness or sensory deficit. PAIN ASSESSMENT: VITALS: BP 114/56 Pulse 72 Temp (Src) 97.5 (Oral) Ht 5' 5 (1.65m) Wt 128 lb 8.5 oz (58.3kg) SpO2 100% LMP 09/23/2012 BMI 21.39 kg/(m^2). Diagnostic tests reviewed for today's visit: Lab Value Units Date High Low HB No results within date range. HCT No results within date range. WBC No results within date range. PLT No results within date range. NA No results within date range. K No results within date range. GLUC No results within date range. BUN No results within date range. CREAT 0.60 mg/dL 03/05/2025 1.4 0.7 PTSEC No results within date range. INR No results within date range. APTT No results within date range. ALT No results within date range. AST No results within date range. TBILI No results within date range. TSH No results within date range. Lab Value Units Date High Low HCGQT No results within date range. UHCG No results within date range. HCG, BODY* No results within date range. Lab Value Units Date High Low ABORHD No results within date range. ABSCREEN No results within date range. No results found for: HBA1C Recent Results (from the past 8760 hours) ECG COMPLETE Collection Time: 03/05/25 12:16 PM Result Value Ventricular Rate 69 Atrial Rate 69 P-R Interval 122 QRS Duration 82 QT Interval 414 QTC Calculation (Bazett) 443 Calculated P Reston 28 Calculated R Reston 45 Calculated T Reston 28 Impression NORMAL SINUS RHYTHM NORMAL ECG No results found for this or any previous visit (from the past 38755 hours). Extended Monitoring-Zio Patch 03/27/2020-04/10/2020 Patient had a min HR of 50 bpm, max HR of 222 bpm, and avg HR of 78 bpm. Predominant underlying rhythm was Sinus Rhythm. 505 Supraventricular Tachycardia runs occurred, the run with the fastest interval lasting 4 beats with a max rate of 222 bpm, the longest lasting 15.1 secs with an avg rate of 154 bpm. Supraventricular Tachycardia was detected within +/- 45 seconds of symptomatic patient event(s). Isolated SVEs were occasional (4.4%, 57795), SVE Couplets were rare (<1.0%, 1666), and SVE Triplets were rare (<1.0%, 718). Isolated VEs were rare (<1.0%), and no VE Couplets or VE Triplets were present. ECHO (02/2020- outside hospital, scanned into [facility]) LVEF 55%, no wall motion abnormality, no significant valve disease. STRESS TEST (February 2020-outside hospital, scanned into [facility]) No ischemia, 10.1 METS. Instructions Given to Patient: Instructions located in the after visit summary. Patient given verbal and written preop instructions and voices comprehension and compliance. SIGNATURE: Ro Pereira APRN.DRAMA CRITIC PATIENT NAME: Silvana Gómez DATE: March 05, 2025 TIME: 1:51 PM PAGER/CONTACT #: [facility] 03-05-2025 History and physical note Images from the original note were not included. [place] [facility] Pre-Anesthesia Consultation [facility] HISTORY AND PHYSICAL EXAMINATION SERVICE DATE: 03/05/2025 SERVICE TIME: 2:00 PM PRIMARY CARE PHYSICIAN: Jamie Ramirez MD Assessment Patient has the following medical conditions which may affect vazquez-operative course: Personal history of malignant neoplasm of breast History right breast cancer 10/2009 completed resection 11/2009 repeat excision completed Received radiation Hypothyroidism Managed with Levothyroxine (SYNTHROID) Followed by PCP Hyperlipidemia Managed with rosuvastatin (CRESTOR) Liver cyst 03/05/25 CT showed -5-10 fluid attenuation lesions compatible with hepatic cysts, unchanged. Largest in the inferior right lobe measures 8.3 cm. Followed by Gen surgery GERD (gastroesophageal reflux disease) Managed with omeprazole (PRILOSEC) PONV (postoperative nausea and vomiting) Patient reported ANESTHESIA FINDINGS: Intubation History: No history of difficult intubation. No abnormal airway history Significant Anesthesia Considerations: potential postop nausea/vomiting Airway History: No history of difficult airway No abnormal airway history Noel Activity Status Index: METS: Walk indoors, such as around the house (1.75 METs) Do light work around the house, such as dusting or washing dishes (2.70 METs) Take care of self; that is eating, dressing, bathing, using the toilet (2.75 METs) Walk a block or two on level ground (2.75 METs) Do moderate work around the house, such as vacuuming, sweeping floors, or carrying in groceries (3.50 METs) Do yardwork, such as raking leaves, weeding, or pushing a power mower (4.50 METs) Climb a flight of stairs or walk up a hill (5.50 METs) Participate in moderate recreational activites, such as golf, bowling, dancing, doubles tennis, or throwing a baseball or football (6.00 METs) Participate in strenuous sport, such as swimming, singles tennis, football, basketball, or skiing (7.50 METs) Do heavy work around the house, such as scrubbing floors, lifting or moving heavy furniture (8.00 METs) DASI Score: 44.95 Patient denies any chest pain or undue shortness of breath with the above physical activity. Clinical Frailty Scale: 3. Well, with treated comorbid disease STOP-Bang Score: Patient over 50 years old Denies snoring loudly Denies feeling tired, fatigued, or sleepy during the daytime Has not been observed to stop breathing or choking/gasping during sleep Denies having high blood pressure BMI less than or equal to 35 kg/m^2 Does not have a large neck Non-male patient STOP-Bang Score: 1 [id number] Score: Age: 65-74 Sex: female CHF history: No Hypertension history: No Stroke/TIA/thromboembolism history: No Vascular disease history: No Diabetes history: No [id number] Score: 2 ARISCAT Score: Age: 51-80 Preoperative SpO2: >=96% Respiratory infection in the last month: No Preoperative anemia: Yes Duration of surgery: >3 hrs Emergency procedure: No ARISCAT Score: I - PHYSICAL EVALUATION AIRWAY Patient intubated: No. Tracheostomy tube not present Mallampati: II. TM distance: >3 FB. Neck ROM: full ROM without neurological symptoms. Mouth opening: adequate. Short neck: no. Thick neck: no Dominique present: no Lip Bite Test: I Microretrognathia/Micronagthia/Reces sed Chin: No DENTAL Dental findings: teeth intact. Additional comments: Crowns upper and lower. II - ANESTHESIA PLAN Anesthetic Plan: other Anesthetic plan additional comments: *PACC/TCI - anesthesia choice. Beta Chika Monitoring Plan Post Procedure Analgesic Plan Prepared for Surgery: optimally prepared for surgery, pending [see comment]. Type and Screen, CONABO, CBC, CMP, Iron+TIBC, Ferritin, EKG (ordered by surgery) and DOS exam CONSULTS: Patient does not require consults for optimization at this time Planned Anesthetic: other anesthesia choice The Following Tests/Procedures Have Been Initiated: Orders Placed This Encounter cholecalciferol, vitamin D3, (VITAMIN D3 ORAL) Sig: Take by mouth. REASON FOR VISIT: Silvana Gómez is a 69 year old female who is scheduled for Procedure(s): LAPAROSCOPY DIAGNOSTIC (N/A) WHIPPLE PROCEDURE, WITH PANCREATOJEJUNOST (N/A) at the request of Earl Douglas MD for consultation. My final recommendation will be communicated back to the requesting physician by way of shared medical record or letter. Subjective The patient has the following: COVID-19 Immunization Status Current Care Gaps Covid-19 Vaccine () Overdue since 05/24/2024 08/12/2023 Imm Admin: COVID-19 vaccine, age 12+ yr, season ([email or web address]) 10/26/2020 Imm Admin: COVID-19 original vaccine, full dose, monovalent (MODERNA) 09/28/2020 Imm Admin: COVID-19 original vaccine, full dose, monovalent (MODERNA) Only the first 3 history entries have been loaded, but more history exists. 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 She endorses having a CT scan performed which revealed a duodenal mass. A CT scan performed today which showed table 4 cm segment of D2/D3 duodenum with circumferential wall thickening suspicious for primary neoplasm. Scheduled for LAPAROSCOPY DIAGNOSTIC WHIPPLE PROCEDURE, WITH PANCREATOJEJUNOS on 03/17/25. Denies any fever, chills, vomiting, SOB, dizziness, lightheadedness, palpitations, syncope, chest pain or abdominal pain. She has elected to proceed with the surgical procedure. REVIEW OF SYSTEMS: General: She reports having fevers on and off, denies at this time. No weight loss, malaise or fevers. Negative for: malaise and fever. Neurological: No history of TIA's, stroke, TELECOMMUNICATOR tumor, impaired sensorium, hemiplegia, paraplegia or quadraplegia. No neurological symptoms or problems. Negative for: impaired sensorium, seizures, TIA and strokes. Respiratory: No history of current cough or dyspnea, or pneumonia in the past 6 weeks. No history of respiratory/pulmonary symptoms or problems. Negative for: asthma, bronchitis, COPD, current cough, dyspnea, home oxygen, orthopnea, pneumonia within 6 weeks, tobacco use, URI < 2 weeks and obstructive sleep apnea. Cardiovascular: Positive for: hyperlipidemia Negative for: abdominal aortic aneurysm, AICD/PPM, angina, anticoagulation therapy, atrial fibrillation, CAD, CHF, congenital heart defect, DVT/PE, hypertension, recent [place] and murmur/valvular heart disease.Arrhythmia: SVT. GI: See HPI. Positive for: liver disease (Liver cyst) and nausea Negative for: abdominal pain, dysphagia, diverticulitis, GERD, GI bleed <30 days, heartburn, hepatitis, irritable bowel syndrome, inflammatory bowel disease, pancreatitis, vomiting and ETOH >2 drinks/day (4 drinks per week). : No history of dysuria, frequency or incontinence, stones or chronic kidney disease. No difficulty urinating, nocturia > 1 time per night or hematuria. Negative for: on dialysis, dysuria, flank pain, frequent urination, hematuria, nephrolithiasis and urgency. 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 Negative for: vaginal bleeding and vaginal discharge. Endocrine: Positive for: hypothyroidism. Negative for: diabetes mellitus, hyperthyroidism and hyperparathyroidism. Hematology: No history of bleeding or clotting disorder. Patient is not taking anti-coagulation or platelet medications. No history of hematological symptoms or problems. Negative for: anemia. Oncology: + Right breast cancer. No history of CA metastasis, chemo within 30 days, or radiotherapy within 90 days. No history of oncological symptoms or problems. Psych: No history of psychiatric symptoms or problems. Negative for: ADHD, anxiety, bipolar disorder, depression, drug dependency and Marijuana Use. Musculoskeletal: Negative for joint pain or swelling, back pain or muscle pain. Negative for: back pain, joint pain, swelling and rheumatoid arthritis. Skin: Negative for: lesions, itching and rash. 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 PONV (postoperative nausea and vomiting) 03/05/2025 PAST SURGICAL HISTORY Procedure Laterality Date DILATION & CURETTAGE DX&/THER NONOBSTETRIC ~1982 Dilation & curettage EXC BREAST LES PREOP PLMT RAD MARKER OPEN 1 LES 2005 & 2006 left breast core Bx & then NL Exc Bx: benign EXC BREAST LES PREOP PLMT RAD MARKER OPEN 1 LES 2008 right breast stereotactic Bx & then had NL PM EXTRACTION, ERUPTED TOOTH OR EXPOSED ROOT (ELEVATION AND/OR FORCEPS REMOVAL) ~1975 wisdom teeth extraction MASTECTOMY, PARTIAL 11/10/2009 right re-excision partial mastectomy and sentinel node biopsy TONSILLECTOMY PRIMARY/SECONDARY <AGE 12 ~8 Tonsillectomy FAMILY HISTORY Problem Relation Age of Onset other (Other Cancers) Other no known family hx of breast, ovarian, uterine, prostate, brain, colon, lung, pancreatic, thyroid, leukemia, melanoma, or sarcoma Heart Attack Father 60 had cabg x4 Heart Brother 50 a-fib had 2 ablations Social History Tobacco Use Smoking status: Never Passive exposure: Never Smokeless tobacco: Never Vaping Use Vaping status: Never Used Substance Use Topics Alcohol use: Yes Alcohol/week: 2.0 standard drinks of alcohol Types: 1 Glasses of Wine (5oz), 1 Cans of Beer (12oz) per week Comment: occas 2 drinks Drug use: No Prior to Admission medications as of 03/05/25 1419 Medication Sig Last Dose Taking cholecalciferol, vitamin D3, (VITAMIN D3 ORAL) Take by mouth. Yes omeprazole (PRILOSEC) 10 mg capsule Take 10 mg by mouth every 24 hours. Yes cetirizine HCl (ZYRTEC) 10 mg chewable tablet Take 20 mg by mouth. Yes rosuvastatin (CRESTOR) 10 mg tablet Take 10 mg by mouth once daily. Yes SYNTHROID 75 mcg tablet Take 75 mcg by mouth once daily. Yes VIT C/MAISHA AC/LUT/COPPER/ZNOX (PRESERVISION LUTEIN ORAL) Take by mouth. Yes fexofenadine (ADEOLA) 180 mg tablet once daily. Medication Comments documented by Bailee Harp on 04/27/2013 at 1312. Patient taking no meds ALLERGIES Allergen Reactions Seasonal Allergies Objective PHYSICAL EXAM: General: alert and oriented and healthy appearance. Skin: normal color, no rash or lesions. HEENT: pupils equal round and pupils reactive to light. Cardiovascular: regular rate and rhythm, normal S1 and S2, no rub, murmurs, or gallop. Respiratory: normal breath sounds, no wheezes or crackles. No chest wall deformity or tenderness. Abdomen: bowel sounds present and soft. Extremities: no deformity, no edema or tenderness, no joint swelling or clubbing. Neurological: normal cognition and motor skills. Gait normal. No weakness or sensory deficit. PAIN ASSESSMENT: VITALS: BP 114/56 Pulse 72 Temp (Src) 97.5 (Oral) Ht 5' 5 (1.65m) Wt 128 lb 8.5 oz (58.3kg) SpO2 100% LMP 09/23/2012 BMI 21.39 kg/(m^2). Diagnostic tests reviewed for today's visit: Lab Value Units Date High Low HB No results within date range. HCT No results within date range. WBC No results within date range. PLT No results within date range. NA No results within date range. K No results within date range. GLUC No results within date range. BUN No results within date range. CREAT 0.60 mg/dL 03/05/2025 1.4 0.7 PTSEC No results within date range. INR No results within date range. APTT No results within date range. ALT No results within date range. AST No results within date range. TBILI No results within date range. TSH No results within date range. Lab Value Units Date High Low HCGQT No results within date range. UHCG No results within date range. HCG, BODY* No results within date range. Lab Value Units Date High Low ABORHD No results within date range. ABSCREEN No results within date range. No results found for: HBA1C Recent Results (from the past 8760 hours) ECG COMPLETE Collection Time: 03/05/25 12:16 PM Result Value Ventricular Rate 69 Atrial Rate 69 P-R Interval 122 QRS Duration 82 QT Interval 414 QTC Calculation (Bazett) 443 Calculated P Reston 28 Calculated R Reston 45 Calculated T Reston 28 Impression NORMAL SINUS RHYTHM NORMAL ECG No results found for this or any previous visit (from the past 68154 hours). Extended Monitoring-Zio Patch 03/27/2020-04/10/2020 Patient had a min HR of 50 bpm, max HR of 222 bpm, and avg HR of 78 bpm. Predominant underlying rhythm was Sinus Rhythm. 505 Supraventricular Tachycardia runs occurred, the run with the fastest interval lasting 4 beats with a max rate of 222 bpm, the longest lasting 15.1 secs with an avg rate of 154 bpm. Supraventricular Tachycardia was detected within +/- 45 seconds of symptomatic patient event(s). Isolated SVEs were occasional (4.4%, 08652), SVE Couplets were rare (<1.0%, 1666), and SVE Triplets were rare (<1.0%, 718). Isolated VEs were rare (<1.0%), and no VE Couplets or VE Triplets were present. ECHO (02/2020- outside hospital, scanned into [facility]) LVEF 55%, no wall motion abnormality, no significant valve disease. STRESS TEST (February 2020-outside [facility], scanned into [facility]) No ischemia, 10.1 METS. Instructions Given to Patient: Instructions located in the after visit summary. Patient given verbal and written preop instructions and voices comprehension and compliance. SIGNATURE: Ro Pereira APRN.CNP PATIENT NAME: Silvana Gómez DATE: March 05, 2025 TIME: 1:51 PM PAGER/CONTACT #: documented in this encounter [facility] 03-05-2025 History of Present illness Narrative Radiology Service Progress Note DATE OF SERVICE: March 05, 2025 TIME: 11:02 AM PATIENT WEIGHT: 127LBS PATIENT IDENTITY VERIFICATION COMPLETED USING TWO (2) STANDARD IDENTIFIERS: Name and Date of confirmed by patient verbally and Name and Date of confirmed by identification band. FALL SCREENING: Has the patient had 2 falls in the last year or 1 fall with injury or currently using an Ambulatory Assistive Device (Walker, Cane, Wheelchair, Crutches, etc.)? No PATIENT GENDER DATA: Assigned female at . status: : No status: NO. ALLERGIES: Reviewed and unchanged CONTRAST ALLERGY: No EXAM: CT -CONTRAST INDUCED NEPHROPATHY RISK FACTORS: Patient age > 60 years CREATININE: Creatinine Date Value Ref Range Status 05/08/2024 0.78 0.58 - 0.96 mg/dL Final 05/21/2023 0.92 0.58 - 0.96 mg/dL Final Creatinine (POCT) Date Value Ref Range Status 03/05/2025 0.60 (A) 0.7 - 1.4 mg/dL Final eGFR (POCT) Date Value Ref Range Status 03/05/2025 >60 mL/min/1.73 m2 Final eGFR- Date Value Ref Range Status 03/23/2020 >60 Final P.O.C.T. RESULTS: POC done: Yes, See Lab Tab March 05, 2025 TREATMENT: N/A IV SITE: Ambulatory: A peripheral IV was started in the Left antecubital site with a Angio cath: 22 gauge. IV SITE APPEARANCE: Clean,Dry and Intact SIGNATURE: Neema Lovett RN PATIENT NAME: Silvana Gómez DATE: March 05, 2025 TIME: 11:02 AM Radiology Service Progress Note PATIENT NAME: Silvana Gómez DATE OF SERVICE: March 05, 2025 TIME: 11:27 AM PATIENT IDENTITY VERIFICATION COMPLETED USING TWO (2) IDENTIFIERS: Name and Date of confirmed by patient verbally and Name and Date of confirmed by identification band. FALL SCREENING: Has the patient had 2 falls in the last year or 1 fall with injury or currently using an Ambulatory Assistive Device (Walker, Cane, Wheelchair, Crutches, etc.)? No PATIENT GENDER DATA: Assigned female at . status: : No status: NO. PATIENT RELEVANT IMPLANT DATA REVIEWED: Yes PATIENT PRESENTS WITH AN IMPLANTABLE OR ATTACHED WATCH ELECTRICIAN: No RADIOLOGY DEPARTMENT: CT; Exam(s) Completed: Abdomen/Pelvis and Chest PERIPHERAL IV DATA: Site assessment: Clean,Dry and Intact, Site disposition Discontinued SIGNED BY: RT Zahraa(R) March 05, 2025 11:27 AM documented in this encounter [facility] 03-05-2025 Note [facility] 03-05-2025 Note [facility] 02-26-2025 Note Addended by: RHONDA GUAJARDO on: 02/26/2025 04:42 PM Modules accepted: Orders [facility] 02-26-2025 Miscellaneous Notes Addended by: RHONDA GUAJARDO on: 02/26/2025 04:42 PM Modules accepted: Orders documented in this encounter [facility] 02-25-2025 Telephone encounter Note Spoke with Ms. Gómez on phone. Was worked up for upper abdominal discomfort. Had RUQ US with biliary dilation which prompted CT with suspected duodenal mass. LFTs abnormal, T bili normal however. Last Cscope about 3-[address] with duodenal/ampullary mass, PD looks dilated too but has divisum, seems to be a fairly extensive process. Having EGD Saturday. 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 Labs. Likely to need whipple. Earl Cardenas MD [facility] 02-25-2025 Miscellaneous Notes Spoke with Ms. Gómez on phone. Was worked up for upper abdominal discomfort. Had RUQ US with biliary dilation which prompted CT with suspected duodenal mass. LFTs abnormal, T bili normal however. Last Cscope about 3-[address] with duodenal/ampullary mass, PD looks dilated too but has divisum, seems to be a fairly extensive process. Having EGD Saturday. 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 Labs. Likely to need whipple. Earl Cardenas MD documented in this encounter [facility] 02-25-2025 Telephone encounter Note Patient called me back after her appt today. She states that she will have endoscope/biopsy next week. I have informed her that I will update Dr. Cardenas. I also informed her that she may not hear from me until Saturday as we wait on images and records. [facility] Work Phone: 02-25-2025 Miscellaneous Notes Patient called me back after her appt today. She states that she will have endoscope/biopsy next week. I have informed her that I will update Dr. Cardenas. I also informed her that she may not hear from me until Saturday as we wait on images and records. She is currently in [place], and plans to travel here as her has appts. at [facility]. She states that she has been seeing a PA at [facility] She has been diagnosed with a duodenal mass/thickening at second portion of duodenum to include ampulla, concerning for malignancy and gallbladder sludge. She had imaging done at [facility] which I will call to request the images. She has an appt. today with the physician environmental assistant. I have requested that she have that office fax us records and results to Dr. Cardenas's office. She has verbalized understanding of the above. [facility] [phone] fax Rhonda can you please give pt a call back so she can explain to you why she she needs to see a surgeon. Patient Name: Silvana Gómez Reason for Call: Pt is calling because she has been referred for an Endoscopy and Biopsy but she is not sure if Dr Cardenas can see her, She will like a call back to explain what her case is about so that she can decide if making an appt with Dr Cardenas is the best option for her or if there is another doctor that can help her Contact #: [phone] Josie Abbasi documented in this encounter [facility] 02-25-2025 Telephone encounter Note She is currently in [place], and plans to travel here as her has appts. at [facility]. She states that she has been seeing a PA at [facility] (I have requested those records in [facility]). She has been diagnosed with a duodenal mass/thickening at second portion of duodenum to include ampulla, concerning for malignancy and gallbladder sludge. She had imaging done at [facility] which I will call to request the images. She has an appt. today with the physician environmental assistant. I have requested that she have that office fax us records and results to Dr. Cardenas's office. She has verbalized understanding of the above. [facility] [phone] fax [facility] 02-25-2025 Telephone encounter Note Rhonda can you please give pt a call back so she can explain to you why she she needs to see a surgeon. [facility] 02-24-2025 Telephone encounter Note Patient Name: Silvana Gómez Reason for Call: Pt is calling because she has been referred for an Endoscopy and Biopsy but she is not sure if Dr Cardenas can see her, She will like a call back to explain what her case is about so that she can decide if making an appt with Dr Cardenas is the best option for her or if there is another doctor that can help her Contact #: [phone] Josie Abbasi [facility] 07-08-2024 History of Present illness Narrative Silvana Gómez returns to the office today for follow-up for chronic idiopathic urticaria. Urticaria control test today is 16 and she feels she has had no hives for the past year. She is off the montelukast and Atarax. She is taking Cetirizine 10 mg at night and one Fexofenadine in the AM. EXAM The patient appears comfortable in the office today. Lungs are clear to auscultation bilaterally. The oral mucosa is pink and healthy without any lesions or ulcers. The palate elevates in the midline. The nasal mucosa is pink and healthy. There is no epistaxis mucopus or nasal polyposis noted. The nasal septum is approximately in the midline. The skin is clear of any lesions, excoriations, or erythema. IMPRESSION: chronic idiopathic urticaria - wean Cetirizine and Fexofenadine as tolerated. Follow-up is arranged on an as needed basis. Patient reports that she will be moving to [place] permanently. documented in this encounter [facility] 05-08-2024 History of Present illness Narrative Patient: Silvana Gómez Location: [facility] : 1955 Attending Physician: Dr.Kasra Carpenter Date: May 08, 2024 Note Type: Progress Note Chief Complaint: Breast cancer. HPI: Ms. Gómez is a 68-year-old woman with a history [...] 0.1mm from inferior margin- stage 1 (T1a,N0), (ER/NH-+; HER2 -), oncotype score 10 11/2009 : repeat excision completed 01/2010 : completes radiation 02/2010 : starts tamoxfien 09/2012 : reports bloody vaginal discharge, pulmonary physical therapist evaluation completed, DNC/BIOPSIES negative and since followed [...] today. Previously followed by Dr. Lieberman. 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 No current facility-administered medications for this visit. [...] masses bilaterall and no axillary fullness RADIOLOGY: 04/2024 Mammogram: Negative and 12 month follow up recommended 04/2024 Dexa Scan: Normal Bone density Impression: This is a 69-year-old woman with a history of right breast cancer. Had stage 1 right breast cancer- ER/NH (+), HER2(-). Had 3 years of adjuvant tamoxifen, a year of arimidex interrupted by concern for return of pre-menopausal state, the completed almost four years of adjuvant aromasin concluding in 06/2018. Given reported symptoms and overall duration of adjuvant treatment, patient deferred further adjuvant hormonal therapy after 04/2018 and QOL has dramatically improved. At that point patient was under Dr. Lieberman's care. Plan: History of right Breast Cancer-no clinical evidence of recurrence She will be moving to [place] and will continue care with PCP and yearly mammograms Continue exercise regimen Giana Carpenter MD I spent a total of 30 minutes on the date of the service which included preparing to see the patient, [id number] patient care, completing clinical documentation, obtaining and/or reviewing separately obtained history, performing a medically appropriate examination, counseling and educating the patient/family/caregiver and ordering medications, tests, or procedures. CC: Jamie Ramirez MD documented in this encounter [facility] 05-23-2023 Miscellaneous Notes Faxed order to [facility]. Jennifer Power Order placed Patient states she should have a Mammogram ordered before her next appointment and you will typically order that for her. If in agreement, Can you please order Mammogram? Thanks! Jennifer Power documented in this encounter [facility] 03-27-2023 Miscellaneous Notes Pt aware of negative mammogram results from [facility]. Roseline Red RN documented in this encounter [facility] 01-18-2023 Evaluation note Encounter Date Diagnosis Assessment Notes Dec, Hives (ICD-10 - L50.9) [facility] Other 04-24-2023 Evaluation note* Encounter Date Diagnosis Assessment Notes Treatment Notes Treatment Clinical Notes Dec, Seasonal allergic rhinitis, unspecified trigger (ICD-10 - J30.2) Already taking Zyrtec and Benadryl. Suggested adding H2 chika. Patient agrees to Kenalog injection. Patient will call if problem continues for special events fundraiser referral [facility] Other 06-28-2022 History of Present illness Narrative* Giana Carpenter MD - 03/20/2022 3:47 PM EDT Images from the original note were not included. Patient: Silvana Gómez Location: [facility] : 1955 Attending Physician: Dr.Kasra Carpenter Date: 03/20/2022 Note Type: Progress Note Chief Complaint: Breast cancer. HPI: Ms. Gómez is a 66-year-old woman with a history [...] 0.1mm from inferior margin- stage 1 (T1a,N0), (ER/NH-+; HER2 -),oncotype score 10 11/2009 : repeat excision completed 01/2010 : completes radiation 02/2010 : starts tamoxfien 09/2012 : reports bloody vaginal discharge, pulmonary physical therapist evaluation completed, DNC/BIOPSIES negative and since followed [...] (FLONASE) 50 mcg/actuation nasal spray Use 1 Bacova in each nostril once daily. OMEPRAZOLE MAGNESIUM [...] RADIOLOGY: 02/2021 Mammogram: 01/2017 [facility] RE[facility] [place], [place]; [id number] (09/21/2009): Right breast, 4 o'clock, lumpectomy (1-7 [...] breast cancer. Had stage 1 right breast cancer-ER/NH (+), HER2(-). Had 3 years of adjuvant [...] recurrence -continue observation -repeat mammogram February 2023, Get 2021 mammogram report -see back in 1 year. continue Vit D Giana Carpenter MD I spent a total of 25 minutes on the date of the service which included preparing to see the patient, [id number] patient care, completing clinical documentation, obtaining and/or reviewing separately obtained history, performing a medically appropriate examination, counseling and educating the pat ient/family/caregiver and ordering medications, tests, or procedures. CC: [facility] Ramirez [facility] Diagnosis Malignant neoplasm of lower-inner quadrant of right breast of female, estrogen receptor positive (HCC)- Primary Encounter for screening for malignant neoplasm of breast, unspecified screening modality [facility]* Diagnosis Encounter for screening mammogram for malignant neoplasm of breast- Primary Other screening mammogram documented in this encounter [facility] noteNo [employer] Other Evaluation note* Diagnosis History of breast cancer- Primary Personal history of malignant neoplasm of breast documented in this encounter [facility] note* Diagnosis Chronic idiopathic urticaria- Primary Idiopathic urticaria 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 Malignant neoplasm of connective and other soft tissue of abdomen Intra-abdominal and pelvic swelling, mass and lump, unspecified site 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 Liver mass Unspecified disorder of liver [facility] Diagnosis Personal history of malignant neoplasm of breast Hypothyroidism, unspecified type Hyperlipidemia, unspecified hyperlipidemia type Liver cyst Other specified disorders of liver Gastroesophageal reflux disease, unspecified whether esophagitis present PONV (postoperative nausea and vomiting) Nausea with vomiting * Assessment & Plan Note - Ro Pereira APRN.CNP - 03/05/2025 2:17 PM EDTAssociated Problem(s): PONV (postoperative nausea and vomiting) Patient reported * Assessment & Plan Note - Ro Pereira APRN.CNP - 03/05/2025 2:13 PM EDTAssociated Problem(s): GERD (gastroesophageal reflux disease) Managed with omeprazole (PRILOSEC) * Assessment & Plan Note - Ro Pereira APRN.CNP - 03/05/2025 2:11 PM EDTAssociated Problem(s): Liver cyst 03/05/25 CT showed -5-10 fluid attenuation lesions compatible with hepatic cysts, unchanged. Largestin the inferior right lobe measures 8.3 cm. Followed by Gen surgery * Assessment & Plan Note - Ro Pereira APRN.CNP - 03/05/2025 2:00 PM EDTAssociated Problem(s): Hyperlipidemia Managed with rosuvastatin (CRESTOR) * Assessment & Plan Note - Ro Pereira APRN.CNP - 03/05/2025 2:00 PM EDTAssociated Problem(s): Hypothyroidism Managed with Levothyroxine (SYNTHROID) Followed by PCP * Assessment & Plan Note - Ro Pereira APRN.DRAMA CRITIC - 03/05/2025 1:59 PM EDTAssociated Problem(s): Personal history of malignant neoplasm of breast History right breast cancer 10/2009 completed resection 11/2009 repeat excision completed Received radiation [facility] [place] [facility]* Diagnosis Personal history of malignant neoplasm of breast Hypothyroidism, unspecified type Hyperlipidemia, unspecified hyperlipidemia type Liver cyst Other specified disorders of liver Gastroesophageal reflux disease, unspecified whether esophagitis present PONV (postoperative nausea and vomiting) Nausea with vomiting Neoplasm of ampulla of Vater- Primary [facility] [place] [facility]* Diagnosis 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) Malignant neoplasm of connective and other soft tissue of abdomen Intra-abdominal and pelvic swelling, mass and lump, unspecified site Personal history of malignant neoplasm of breast Hypothyroidism, unspecified type Hyperlipidemia, unspecified hyperlipidemia type Liver cyst Other specified disorders of liver Gastroesophageal reflux disease, unspecified whether esophagitis present PONV (postoperative nausea and vomiting) Nausea with vomiting [facility] [place] [facility]* Diagnosis Personal history of malignant neoplasm of breast Hypothyroidism, unspecified type Hyperlipidemia, unspecified hyperlipidemia type Liver cyst Other specified disorders of liver Gastroesophageal reflux disease, unspecified whether esophagitis present PONV (postoperative nausea and vomiting) Nausea with vomiting Liver mass Unspecified disorder of liver [facility] this [facility] [place] [facility]* Diagnosis Personal history of malignant neoplasm of breast Hypothyroidism, unspecified type Hyperlipidemia, unspecified hyperlipidemia type Liver cyst Other specified disorders of liver Gastroesophageal reflux disease, unspecified whether esophagitis present PONV (postoperative nausea and vomiting) Nausea with vomiting Iron deficiency anemia due to chronic blood loss Iron deficiency anemia secondary to blood loss (chronic) Preoperative examination Preoperative examination, unspecified 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) Malignant neoplasm of connective and other soft tissue of abdomen Intra-abdominal and pelvic swelling, mass and lump, unspecified site documented in this encounter [facility] note* Diagnosis Personal history of malignant neoplasm of breast Hypothyroidism, unspecified type Hyperlipidemia, unspecified hyperlipidemia type Liver cyst Other specified disorders of liver Gastroesophageal reflux disease, unspecified whether esophagitis present PONV (postoperative nausea and vomiting) Nausea with vomiting Nausea- Primary Nausea alone 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) Preoperative examination Preoperative examination, unspecified 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) Malignant neoplasm of connective and other soft tissue of abdomen Intra-abdominal and pelvic swelling, mass and lump, unspecified site documented in this encounter [facility] note* Diagnosis Personal history of malignant neoplasm of breast Hypothyroidism, unspecified type Hyperlipidemia, unspecified hyperlipidemia type Liver cyst Other specified disorders of liver Gastroesophageal reflux disease, unspecified whether esophagitis present PONV (postoperative nausea and vomiting) Nausea with vomiting Neoplasm of ampulla of Vater- Primary 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 Preoperative examination Preoperative examination, unspecified 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) Malignant neoplasm of connective and other soft tissue of abdomen Intra-abdominal and pelvic swelling, mass and lump, unspecified site documented in this encounter [facility] note* Diagnosis Personal history of malignant neoplasm of breast Hypothyroidism, unspecified type Hyperlipidemia, unspecified hyperlipidemia type Liver cyst Other specified disorders of liver Gastroesophageal reflux disease, unspecified whether esophagitis present PONV (postoperative nausea and vomiting) Nausea with vomiting Iron deficiency anemia due to chronic blood loss- Primary Iron deficiency anemia secondary to blood loss (chronic) Preoperative examination Preoperative examination, unspecified 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) Malignant neoplasm of connective and other soft tissue of abdomen Intra-abdominal and pelvic swelling, mass and lump, unspecified site [facility] [place] [facility]* Diagnosis Personal history of malignant neoplasm of breast Hypothyroidism, unspecified type Hyperlipidemia, unspecified hyperlipidemia type Liver cyst Other specified disorders of liver Gastroesophageal reflux disease, unspecified whether esophagitis present PONV (postoperative nausea and vomiting) Nausea with vomiting 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) documented [facility] this [facility] [place] [facility]* Diagnosis Personal history of malignant neoplasm of breast Hypothyroidism, unspecified type Hyperlipidemia, unspecified hyperlipidemia type Liver cyst Other specified disorders of liver Gastroesophageal reflux disease, unspecified whether esophagitis present PONV (postoperative nausea and vomiting) Nausea with vomiting 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 documented in this encounter [facility] note* Diagnosis Neoplasm of ampulla of Vater- Primary Preoperative examination Preoperative examination, unspecified 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) Malignant neoplasm of connective and other soft tissue of abdomen Intra-abdominal and pelvic swelling, mass and lump, unspecified site Severe protein-calorie malnutrition (HCC) Other severe protein-calorie malnutrition Anemia of chronic disease Anemia of other chronic disease Post-operative pain Other acute postoperative pain Hypothyroidism Unspecified hypothyroidism Hyperlipidemia Other and unspecified hyperlipidemia Personal history of malignant neoplasm of breast Hypothyroidism, unspecified type Hyperlipidemia, unspecified hyperlipidemia type Liver cyst Other specified disorders of liver Gastroesophageal reflux disease, unspecified whether esophagitis present PONV (postoperative nausea and vomiting) Nausea with vomiting Macular degeneration, unspecified laterality, unspecified type- Primary documented in this encounter [facility] note* Diagnosis Neoplasm of ampulla of Vater- Primary Preoperative examination Preoperative examination, unspecified 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) Malignant neoplasm of connective and other soft tissue of abdomen Intra-abdominal and pelvic swelling, mass and lump, unspecified site Post-operative pain Other acute postoperative pain Severe protein-calorie malnutrition (HCC) Other severe protein-calorie malnutrition Anemia of chronic disease Anemia of other chronic disease Post-operative pain Other acute postoperative pain Hypothyroidism Unspecified hypothyroidism Hyperlipidemia Other and unspecified hyperlipidemia Personal history of malignant neoplasm of breast Hypothyroidism, unspecified type Hyperlipidemia, unspecified hyperlipidemia type Liver cyst Other specified disorders of liver Gastroesophageal reflux disease, unspecified whether esophagitis present PONV (postoperative nausea and vomiting) Nausea with vomiting Central serous chorioretinopathy, 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), left Nuclear sclerosis of both eyes documented in this encounter [facility] note* Diagnosis Neoplasm of ampulla of Vater- Primary Preoperative examination Preoperative examination, unspecified 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) Malignant neoplasm of connective and other soft tissue of abdomen Intra-abdominal and pelvic swelling, mass and lump, unspecified site Post-operative pain Other acute postoperative pain Severe protein-calorie malnutrition (HCC) Other severe protein-calorie malnutrition Anemia of chronic disease Anemia of other chronic disease Post-operative pain Other acute postoperative pain Hypothyroidism Unspecified hypothyroidism Hyperlipidemia Other and unspecified hyperlipidemia Personal history of malignant neoplasm of breast Hypothyroidism, unspecified type Hyperlipidemia, unspecified hyperlipidemia type Liver cyst Other specified disorders of liver Gastroesophageal reflux disease, unspecified whether esophagitis present PONV (postoperative nausea and vomiting) Nausea with vomiting 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 documented in this encounter [facility] note* Diagnosis Neoplasm of ampulla of Vater- Primary Preoperative examination Preoperative examination, unspecified 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) Malignant neoplasm of connective and other soft tissue of abdomen Intra-abdominal and pelvic swelling, mass and lump, unspecified site Post-operative pain Other acute postoperative pain Severe protein-calorie malnutrition (HCC) Other severe protein-calorie malnutrition Anemia of chronic disease Anemia of other chronic disease Post-operative pain Other acute postoperative pain Hypothyroidism Unspecified hypothyroidism Hyperlipidemia Other and unspecified hyperlipidemia Personal history of malignant neoplasm of breast Hypothyroidism, unspecified type Hyperlipidemia, unspecified hyperlipidemia type Liver cyst Other specified disorders of liver Gastroesophageal reflux disease, unspecified whether esophagitis present PONV (postoperative nausea and vomiting) Nausea with vomiting 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 Increased risk for hereditary cancer syndrome 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 [facility] [place] [facility] Diagnosis Neoplasm of ampulla of Vater- Primary Preoperative examination Preoperative examination, unspecified 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) Malignant neoplasm of connective and other soft tissue of abdomen Intra-abdominal and pelvic swelling, mass and lump, unspecified site Post-operative pain Other acute postoperative pain Severe protein-calorie malnutrition (HCC) Other severe protein-calorie malnutrition Anemia of chronic disease Anemia of other chronic disease Post-operative pain Other acute postoperative pain Hypothyroidism Unspecified hypothyroidism Hyperlipidemia Other and unspecified hyperlipidemia Personal history of malignant neoplasm of breast Hypothyroidism, unspecified type Hyperlipidemia, unspecified hyperlipidemia type Liver cyst Other specified disorders of liver Gastroesophageal reflux disease, unspecified whether esophagitis present PONV (postoperative nausea and vomiting) Nausea with vomiting 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 [facility] this [facility] [place] [facility]* Diagnosis Neoplasm of ampulla of Vater- Primary Preoperative examination Preoperative examination, unspecified 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) Malignant neoplasm of connective and other soft tissue of abdomen Intra-abdominal and pelvic swelling, mass and lump, unspecified site Post-operative pain Other acute postoperative pain Severe protein-calorie malnutrition (HCC) Other severe protein-calorie malnutrition Anemia of chronic disease Anemia of other chronic disease Post-operative pain Other acute postoperative pain Hypothyroidism Unspecified hypothyroidism Hyperlipidemia Other and unspecified hyperlipidemia Personal history of malignant neoplasm of breast Hypothyroidism, unspecified type Hyperlipidemia, unspecified hyperlipidemia type Liver cyst Other specified disorders of liver Gastroesophageal reflux disease, unspecified whether esophagitis present PONV (postoperative nausea and vomiting) Nausea with vomiting 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 [facility] this [facility] [place] [facility]* Diagnosis Neoplasm of ampulla of Vater- Primary Preoperative examination Preoperative examination, unspecified 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) Malignant neoplasm of connective and other soft tissue of abdomen Intra-abdominal and pelvic swelling, mass and lump, unspecified site Post-operative pain Other acute postoperative pain Severe protein-calorie malnutrition (HCC) Other severe protein-calorie malnutrition Anemia of chronic disease Anemia of other chronic disease Post-operative pain Other acute postoperative pain Hypothyroidism Unspecified hypothyroidism Hyperlipidemia Other and unspecified hyperlipidemia Personal history of malignant neoplasm of breast Hypothyroidism, unspecified type Hyperlipidemia, unspecified hyperlipidemia type Liver cyst Other specified disorders of liver Gastroesophageal reflux disease, unspecified whether esophagitis present PONV (postoperative nausea and vomiting) Nausea with vomiting 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 Nausea Nausea alone Abnormal LFTs Other abnormal blood chemistry Central serous chorioretinopathy, 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), left [facility] [place] [facility]* Diagnosis Neoplasm of ampulla of Vater- Primary Preoperative examination Preoperative examination, unspecified 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) Malignant neoplasm of connective and other soft tissue of abdomen Intra-abdominal and pelvic swelling, mass and lump, unspecified site Post-operative pain Other acute postoperative pain Severe protein-calorie malnutrition (HCC) Other severe protein-calorie malnutrition Anemia of chronic disease Anemia of other chronic disease Post-operative pain Other acute postoperative pain Hypothyroidism Unspecified hypothyroidism Hyperlipidemia Other and unspecified hyperlipidemia Personal history of malignant neoplasm of breast Hypothyroidism, unspecified type Hyperlipidemia, unspecified hyperlipidemia type Liver cyst Other specified disorders of liver Gastroesophageal reflux disease, unspecified whether esophagitis present PONV (postoperative nausea and vomiting) Nausea with vomiting 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, 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), left [facility] [place] [facility] Diagnosis Neoplasm of ampulla of Vater- Primary Preoperative examination Preoperative examination, unspecified 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) Malignant neoplasm of connective and other soft tissue of abdomen Intra-abdominal and pelvic swelling, mass and lump, unspecified site Post-operative pain Other acute postoperative pain Severe protein-calorie malnutrition (HCC) Other severe protein-calorie malnutrition Anemia of chronic disease Anemia of other chronic disease Post-operative pain Other acute postoperative pain Hypothyroidism Unspecified hypothyroidism Hyperlipidemia Other and unspecified hyperlipidemia Personal history of malignant neoplasm of breast Hypothyroidism, unspecified type Hyperlipidemia, unspecified hyperlipidemia type Liver cyst Other specified disorders of liver Gastroesophageal reflux disease, unspecified whether esophagitis present PONV (postoperative nausea and vomiting) Nausea with vomiting 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, 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), left documented in this encounter [facility] note* Diagnosis Neoplasm of ampulla of Vater- Primary Preoperative examination Preoperative examination, unspecified 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) Malignant neoplasm of connective and other soft tissue of abdomen Intra-abdominal and pelvic swelling, mass and lump, unspecified site Post-operative pain Other acute postoperative pain Severe protein-calorie malnutrition (HCC) Other severe protein-calorie malnutrition Anemia of chronic disease Anemia of other chronic disease Post-operative pain Other acute postoperative pain Hypothyroidism Unspecified hypothyroidism Hyperlipidemia Other and unspecified hyperlipidemia Personal history of malignant neoplasm of breast Hypothyroidism, unspecified type Hyperlipidemia, unspecified hyperlipidemia type Liver cyst Other specified disorders of liver Gastroesophageal reflux disease, unspecified whether esophagitis present PONV (postoperative nausea and vomiting) Nausea with vomiting Iron deficiency anemia due to chronic blood loss- Primary 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, 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), left documented in this encounter [facility] note* Diagnosis Neoplasm of ampulla of Vater- Primary Preoperative examination Preoperative examination, unspecified 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) Malignant neoplasm of connective and other soft tissue of abdomen Intra-abdominal and pelvic swelling, mass and lump, unspecified site Post-operative pain Other acute postoperative pain Severe protein-calorie malnutrition (HCC) Other severe protein-calorie malnutrition Anemia of chronic disease Anemia of other chronic disease Post-operative pain Other acute postoperative pain Hypothyroidism Unspecified hypothyroidism Hyperlipidemia Other and unspecified hyperlipidemia Personal history of malignant neoplasm of breast Hypothyroidism, unspecified type Hyperlipidemia, unspecified hyperlipidemia type Liver cyst Other specified disorders of liver Gastroesophageal reflux disease, unspecified whether esophagitis present PONV (postoperative nausea and vomiting) Nausea with vomiting CNVM (choroidal neovascular membrane), left- Primary Central serous chorioretinopathy, left eye Central serous retinopathy Nuclear sclerosis of both eyes [facility] [place] [facility] Diagnosis Neoplasm of ampulla of Vater- Primary Preoperative examination Preoperative examination, unspecified 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) Malignant neoplasm of connective and other soft tissue of abdomen Intra-abdominal and pelvic swelling, mass and lump, unspecified site Post-operative pain Other acute postoperative pain Severe protein-calorie malnutrition (HCC) Other severe protein-calorie malnutrition Anemia of chronic disease Anemia of other chronic disease Post-operative pain Other acute postoperative pain Hypothyroidism Unspecified hypothyroidism Hyperlipidemia Other and unspecified hyperlipidemia Personal history of malignant neoplasm of breast Hypothyroidism, unspecified type Hyperlipidemia, unspecified hyperlipidemia type Liver cyst Other specified disorders of liver Gastroesophageal reflux disease, unspecified whether esophagitis present PONV (postoperative nausea and vomiting) Nausea with vomiting 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 documented in this encounter [facility] note* Diagnosis Neoplasm of ampulla of Vater- Primary Preoperative examination Preoperative examination, unspecified 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) Malignant neoplasm of connective and other soft tissue of abdomen Intra-abdominal and pelvic swelling, mass and lump, unspecified site Post-operative pain Other acute postoperative pain Severe protein-calorie malnutrition (HCC) Other severe protein-calorie malnutrition Anemia of chronic disease Anemia of other chronic disease Post-operative pain Other acute postoperative pain Hypothyroidism Unspecified hypothyroidism Hyperlipidemia Other and unspecified hyperlipidemia Personal history of malignant neoplasm of breast Hypothyroidism, unspecified type Hyperlipidemia, unspecified hyperlipidemia type Liver cyst Other specified disorders of liver Gastroesophageal reflux disease, unspecified whether esophagitis present PONV (postoperative nausea and vomiting) Nausea with vomiting 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, 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), left documented in this encounter [facility] note* Diagnosis Neoplasm of ampulla of Vater- Primary Preoperative examination Preoperative examination, unspecified 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) Malignant neoplasm of connective and other soft tissue of abdomen Intra-abdominal and pelvic swelling, mass and lump, unspecified site Post-operative pain Other acute postoperative pain Severe protein-calorie malnutrition (HCC) Other severe protein-calorie malnutrition Anemia of chronic disease Anemia of other chronic disease Post-operative pain Other acute postoperative pain Hypothyroidism Unspecified hypothyroidism Hyperlipidemia Other and unspecified hyperlipidemia Personal history of malignant neoplasm of breast Hypothyroidism, unspecified type Hyperlipidemia, unspecified hyperlipidemia type Liver cyst Other specified disorders of liver Gastroesophageal reflux disease, unspecified whether esophagitis present PONV (postoperative nausea and vomiting) Nausea with vomiting 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 [facility] [place] [facility] Diagnosis Neoplasm of ampulla of Vater- Primary Preoperative examination Preoperative examination, unspecified 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) Malignant neoplasm of connective and other soft tissue of abdomen Intra-abdominal and pelvic swelling, mass and lump, unspecified site Post-operative pain Other acute postoperative pain Severe protein-calorie malnutrition (HCC) Other severe protein-calorie malnutrition Anemia of chronic disease Anemia of other chronic disease Post-operative pain Other acute postoperative pain Hypothyroidism Unspecified hypothyroidism Hyperlipidemia Other and unspecified hyperlipidemia Personal history of malignant neoplasm of breast Hypothyroidism, unspecified type Hyperlipidemia, unspecified hyperlipidemia type Liver cyst Other specified disorders of liver Gastroesophageal reflux disease, unspecified whether esophagitis present PONV (postoperative nausea and vomiting) Nausea with vomiting 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 Malaise and fatigue Other malaise and fatigue documented in this encounter [facility] [place] [facility]* Diagnosis Neoplasm of ampulla of Vater- Primary Preoperative examination Preoperative examination, unspecified 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) Malignant neoplasm of connective and other soft tissue of abdomen Intra-abdominal and pelvic swelling, mass and lump, unspecified site Post-operative pain Other acute postoperative pain Severe protein-calorie malnutrition (HCC) Other severe protein-calorie malnutrition Anemia of chronic disease Anemia of other chronic disease Post-operative pain Other acute postoperative pain Hypothyroidism Unspecified hypothyroidism Hyperlipidemia Other and unspecified hyperlipidemia Personal history of malignant neoplasm of breast Hypothyroidism, unspecified type Hyperlipidemia, unspecified hyperlipidemia type Liver cyst Other specified disorders of liver Gastroesophageal reflux disease, unspecified whether esophagitis present PONV (postoperative nausea and vomiting) Nausea with vomiting 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 Malaise and fatigue Other malaise and fatigue Abnormal weight loss Loss of weight Transaminitis Nonspecific elevation of levels of transaminase or lactic acid dehydrogenase (LDH) documented in this [facility] [place] [facility]* Diagnosis Neoplasm of ampulla of Vater- Primary Preoperative examination Preoperative examination, unspecified 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) Malignant neoplasm of connective and other soft tissue of abdomen Intra-abdominal and pelvic swelling, mass and lump, unspecified site Post-operative pain Other acute postoperative pain Severe protein-calorie malnutrition (HCC) Other severe protein-calorie malnutrition Anemia of chronic disease Anemia of other chronic disease Post-operative pain Other acute postoperative pain Hypothyroidism Unspecified hypothyroidism Hyperlipidemia Other and unspecified hyperlipidemia Personal history of malignant neoplasm of breast Hypothyroidism, unspecified type Hyperlipidemia, unspecified hyperlipidemia type Liver cyst Other specified disorders of liver Gastroesophageal reflux disease, unspecified whether esophagitis present PONV (postoperative nausea and vomiting) Nausea with vomiting Malignant neoplasm of duodenum (HCC)- Primary Malignant neoplasm of duodenum [facility] Diagnosis Neoplasm of ampulla of Vater- Primary Preoperative examination Preoperative examination, unspecified 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) Malignant neoplasm of connective and other soft tissue of abdomen Intra-abdominal and pelvic swelling, mass and lump, unspecified site Post-operative pain Other acute postoperative pain Severe protein-calorie malnutrition (HCC) Other severe protein-calorie malnutrition Anemia of chronic disease Anemia of other chronic disease Post-operative pain Other acute postoperative pain Hypothyroidism Unspecified hypothyroidism Hyperlipidemia Other and unspecified hyperlipidemia Personal history of malignant neoplasm of breast Hypothyroidism, unspecified type Hyperlipidemia, unspecified hyperlipidemia type Liver cyst Other specified disorders of liver Gastroesophageal reflux disease, unspecified whether esophagitis present PONV (postoperative nausea and vomiting) Nausea with vomiting 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 Malaise and fatigue Other malaise and fatigue Central serous chorioretinopathy, 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), left [facility] [place] [facility]* Diagnosis Neoplasm of ampulla of Vater- Primary Preoperative examination Preoperative examination, unspecified 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) Malignant neoplasm of connective and other soft tissue of abdomen Intra-abdominal and pelvic swelling, mass and lump, unspecified site Post-operative pain Other acute postoperative pain Severe protein-calorie malnutrition (HCC) Other severe protein-calorie malnutrition Anemia of chronic disease Anemia of other chronic disease Post-operative pain Other acute postoperative pain Hypothyroidism Unspecified hypothyroidism Hyperlipidemia Other and unspecified hyperlipidemia Personal history of malignant neoplasm of breast Hypothyroidism, unspecified type Hyperlipidemia, unspecified hyperlipidemia type Liver cyst Other specified disorders of liver Gastroesophageal reflux disease, unspecified whether esophagitis present PONV (postoperative nausea and vomiting) Nausea with vomiting 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, 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), left documented in this encounter [facility] note* Diagnosis Neoplasm of ampulla of Vater- Primary Preoperative examination Preoperative examination, unspecified 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) Malignant neoplasm of connective and other soft tissue of abdomen Intra-abdominal and pelvic swelling, mass and lump, unspecified site Post-operative pain Other acute postoperative pain Severe protein-calorie malnutrition (HCC) Other severe protein-calorie malnutrition Anemia of chronic disease Anemia of other chronic disease Post-operative pain Other acute postoperative pain Hypothyroidism Unspecified hypothyroidism Hyperlipidemia Other and unspecified hyperlipidemia Personal history of malignant neoplasm of breast Hypothyroidism, unspecified type Hyperlipidemia, unspecified hyperlipidemia type Liver cyst Other specified disorders of liver Gastroesophageal reflux disease, unspecified whether esophagitis present PONV (postoperative nausea and vomiting) Nausea with vomiting Encounter for antineoplastic chemotherapy- Primary 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, 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), [facility] Neoplasm of ampulla of Vater- Primary Preoperative examination Preoperative examination, unspecified 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) Malignant neoplasm of connective and other soft tissue of abdomen Intra-abdominal and pelvic swelling, mass and lump, unspecified site Post-operative pain Other acute postoperative pain Severe protein-calorie malnutrition (HCC) Other severe protein-calorie malnutrition Anemia of chronic disease Anemia of other chronic disease Post-operative pain Other acute postoperative pain Hypothyroidism Unspecified hypothyroidism Hyperlipidemia Other and unspecified hyperlipidemia Personal history of malignant neoplasm of breast Hypothyroidism, unspecified type Hyperlipidemia, unspecified hyperlipidemia type Liver cyst Other specified disorders of liver Gastroesophageal reflux disease, unspecified whether esophagitis present PONV (postoperative nausea and vomiting) Nausea with vomiting 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, 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), left documented in this encounter [facility] note* Diagnosis Neoplasm of ampulla of Vater- Primary Preoperative examination Preoperative examination, unspecified 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) Malignant neoplasm of connective and other soft tissue of abdomen Intra-abdominal and pelvic swelling, mass and lump, unspecified site Post-operative pain Other acute postoperative pain Severe protein-calorie malnutrition (HCC) Other severe protein-calorie malnutrition Anemia of chronic disease Anemia of other chronic disease Post-operative pain Other acute postoperative pain Hypothyroidism Unspecified hypothyroidism Hyperlipidemia Other and unspecified hyperlipidemia Personal history of malignant neoplasm of breast Hypothyroidism, unspecified type Hyperlipidemia, unspecified hyperlipidemia type Liver cyst Other specified disorders of liver Gastroesophageal reflux disease, unspecified whether esophagitis present PONV (postoperative nausea and vomiting) Nausea with vomiting Malignant neoplasm of rectum (HCC)- Primary Malignant neoplasm of rectum Thrush Candidiasis of mouth Central serous chorioretinopathy, 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), left documented in this encounter [facility] note* Diagnosis Neoplasm of ampulla of Vater- Primary Preoperative examination Preoperative examination, unspecified 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) Malignant neoplasm of connective and other soft tissue of abdomen Intra-abdominal and pelvic swelling, mass and lump, unspecified site Post-operative pain Other acute postoperative pain Severe protein-calorie malnutrition (HCC) Other severe protein-calorie malnutrition Anemia of chronic disease Anemia of other chronic disease Post-operative pain Other acute postoperative pain Hypothyroidism Unspecified hypothyroidism Hyperlipidemia Other and unspecified hyperlipidemia Personal history of malignant neoplasm of breast Hypothyroidism, unspecified type Hyperlipidemia, unspecified hyperlipidemia type Liver cyst Other specified disorders of liver Gastroesophageal reflux disease, unspecified whether esophagitis present PONV (postoperative nausea and vomiting) Nausea with vomiting CNVM (choroidal neovascular membrane), left- Primary Central serous chorioretinopathy, left eye Central serous retinopathy Nuclear sclerosis of both eyes documented in this encounter [facility] general Narrative - Reported* Type Description Date [...] Right Lumpectomy 2008, Problem Status : Active, [employer] Other Reason for referral (narrative)* Diagnostic Procedure Only (Routine) - Pending Review Specialty Diagnoses / Procedures Referred By Shasha mclain Referred To Contact [facility] Diagnoses Encounter for screening for malignant neoplasm of breast, unspecified screening modality Procedures NORIS SCREENING W MARY LOU SCREENING DIGITAL BREAST TOMOSYNTHESIS BI SCREENING MAMMOGRAPHY BI 2-VIEW BREAST INC Giana Garrido MD [address] [place] [id number] [facility] [address] [place] [address] Referral ID Status Reason Start Date Expiration Date Visits Requested Visits Authorized [id number] Pending Review Auto-Generat ed Referral 03/20/2023 04/19/2023 1 1 [facility] for referral (narrative)* Reason *FU 01/28 Last OV Diagnosis 1 Hives (L50.9) Referral Organization [facility] Referring Provider First Name Jamie Referring Provider Last Name James Referring Provider Specialty Family Medi cine Referred Organization [facility] Referred Provider Izabela Padilla Referred Address ,[place], [place],[address] Referred Provider Specialty Allergy/Immu nology Referral Priority Routine General Notes NealDianelys che 08:33:21 AM >received today, attachments made, notes locked, referral faxed [employer] Other Reason for referral (narrative)* Diagnostic Procedure Only (Routine) - Pending Review Specialty Diagnoses / Procedures Referred By Shasha mclain Referred To Contact [facility] Diagnoses Encounter for screening mammogram for malignant neoplasm of breast Procedures NORIS SCREENING W MARY LOU SCREENING DIGITAL BREAST TOMOSYNTHESIS BI SCREENING MAMMOGRAPHY BI 2-VIEW BREAST INC CAD Giana Carpenter MD [address] [place] [id number] [facility] [address] [place] [address] Referral ID Status Reason Start Date Expiration Date Visits Requested Visits Authorized [id number] Pending Review Auto-Generat ed Referral 03/22/2024 06/21/2024 1 1 [facility] for visit Narrative* MRI/CT (Routine) - Closed Specialty Diagnoses / Procedures Referred By Shasha mclain Referred To Contact CT IMAGING Diagnoses Intra-abdominal and pelvic swelling, mass and lump, unspecified site Procedures CT ABD/PEL W IVCON CT ABD & PELVIS W/CONTRAST Earl Cardenas MD [address] [facility] [address] [place] [address] Phone: tel: fax: [place] [address] Referral ID Status Reason Start Date Expiration Date V isits Requested Visits Authorized [id number] Closed Auto-Generate d Referral 02/25/2025 03/27/2026 1 1 [facility] for visit Narrative* [place] Prior Authorization (Routine) - Authorized Specialty Diagnoses / Procedures Referred By Contac t Referred To Contact Diagnoses Iron deficiency anemia due to chronic blood loss Procedures IRON DEXTRAN INJECTION [place], RICHARD.[employer] [address] [place] [address] Phone: tel: fax: Hematology/Oncology [address] [place] [address] Phone: tel: Referral ID Status Reason Start Date Expiration Date V isits Requested Visits Authorized [id number] Authorized 03/10/2025 09/22/2025 99 99 [facility] for visit Narrative* [place] Prior Authorization (Routine) - Pending Review Specialty Diagnoses / Procedures [facility] To Contact HEMONC INFUSION Diagnoses Malignant neoplasm of duodenum (HCC) Ben Medellin MD [address] [place] [address] Phone: tel: fax: Hematology/Oncology [address] [place] [address] Phone: tel: Referral ID Status Reason Start Date Expiration Date Visits Requested Visits Authorized [id number] Pending Review Patient Cleared - Admin/Chair man/Directo r advise to proceed or did not respond 05/04/2025 08/02/2025 1 100 [facility] for visit Narrative* [place] Prior Authorization (Routine) - Authorized Specialty Diagnoses / Procedures Referred By Contac t Referred To Contact HEMONC INFUSION Diagnoses Malignant neoplasm of duodenum (HCC) Procedures PALONOSETRON HCL LEUCOVORIN CALCIUM INJECTION FLUOROURACIL INJECTION INJ, ATEZOLIZUMAB,10 MG OXALIPLATIN Ben Medellin MD [address] [place] [address] Phone: tel: fax: Hematology/Oncology [address] [place] [address] Phone: tel: Referral ID Status Reason Start Date Expiration Date Visits Requested Visits Authorized [id number] Authorized Patient Cleared - Admin/Chairm an/Director advise to proceed or did not respond 05/04/2025 09/22/2025 1 100 [facility] Summary Purpose Family History No Family History Records FoundNo Family History Records FoundNo Family History Records FoundNo Family History Records FoundNo Family History Records Found Advance Directives No Advanced Directives Records FoundDocuments on File Type Date Recorded 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 Advance Directive(s) 03/23/2025 2:09 PM Documents on File Type Date Recorded 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 Advance Directive(s) 03/23/2025 2:09 PM Additional Source Comments INFORMATION SOURCE (unrecogn ized section and content) DATE CREATED AUTHOR 10/16/2021 [facility] DATE CREATED AUTHOR AUTHOR'S ORGANIZ ATION 05/29/2022 [facility] DATE CREATED AUTHOR AUTHOR'S ORGANIZ ATION 07/10/2024 [facility] DATE CREATED AUTHOR AUTHOR'S ORGANIZ ATION 05/09/2025 [facility] DATE CREATED AUTHOR AUTHOR'S ORGANIZ ATION 07/07/2025 [facility] Source Comments (unrecognize d section and content) In the event this informatio n is protected by the Federal Confidentiality of Alcohol and Drug Abuse Patient Records regulations: The Federal rules restrict any use of the information to criminally investigate or prosecute any alcohol or drug abuse patient.[facility] the event this information is protected by the Federal Confidentiality of Alcohol and Drug Abuse Patient Records regulations: The Federal rules restrict any use of the information to criminally investigate or prosecute any alcohol or drug abuse patient.[facility] Dublin[facility] the event this information is protected by the Federal Confidentiality of Alcohol and Drug Abuse Patient Records regulations: The Federal rules restrict any use of the information to criminally investigate or prosecute any alcohol or drug abuse patient.[facility] Dublin[facility] the event this information is protected by the Federal Confidentiality of Alcohol and Drug Abuse Patient Records regulations: The Federal rules restrict any use of the information to criminally investigate or prosecute any alcohol or drug abuse patient.[facility] Dublin[facility] the event this information is protected by the Federal Confidentiality of Alcohol and Drug Abuse Patient Records regulations: The Federal rules restrict any use of the information to criminally investigate or prosecute any alcohol or drug abuse patient.[facility] Dublin[facility] the event this information is protected by the Federal Confidentiality of Alcohol and Drug Abuse Patient Records regulations: The Federal rules restrict any use of the information to criminally investigate or prosecute any alcohol or drug abuse patient.[facility] DublinIn the event this information is protected by the Federal Confidentiality of Alcohol and Drug Abuse Patient Records regulations: The Federal rules restrict any use of the information to criminally investigate or prosecute any alcohol or drug abuse patient.[facility] DublinIn the event this information is protected by the Federal Confidentiality of Alcohol and Drug Abuse Patient Records regulations: The Federal rules restrict any use of the information to criminally investigate or prosecute any alcohol or drug abuse patient.[facility] DublinIn the event this information is protected by the Federal Confidentiality of Alcohol and Drug Abuse Patient Records regulations: The Federal rules restrict any use of the information to criminally investigate or prosecute any alcohol or drug abuse patient.[facility] DublinIn the event this information is protected by the Federal Confidentiality of Alcohol and Drug Abuse Patient Records regulations: The Federal rules restrict any use of the information to criminally investigate or prosecute any alcohol or drug abuse patient.[facility] DublinIn the event this information is protected by the Federal Confidentiality of Alcohol and Drug Abuse Patient Records regulations: The Federal rules restrict any use of the information to criminally investigate or prosecute any alcohol or drug abuse patient.[facility] DublinIn the event this information is protected by the Federal Confidentiality of Alcohol and Drug Abuse Patient Records regulations: The Federal rules restrict any use of the information to criminally investigate or prosecute any alcohol or drug abuse patient.[facility] DublinIn the event this information is protected by the Federal Confidentiality of Alcohol and Drug Abuse Patient Records regulations: The Federal rules restrict any use of the information to criminally investigate or prosecute any alcohol or drug abuse patient.[facility] DublinIn the event this information is protected by the Federal Confidentiality of Alcohol and Drug Abuse Patient Records regulations: The Federal rules restrict any use of the information to criminally investigate or prosecute any alcohol or drug abuse patient.[facility] DublinIn the event this information is protected by the Federal Confidentiality of Alcohol and Drug Abuse Patient Records regulations: The Federal rules restrict any use of the information to criminally investigate or prosecute any alcohol or drug abuse patient.[facility] DublinIn the event this information is protected by the Federal Confidentiality of Alcohol and Drug Abuse Patient Records regulations: The Federal rules restrict any use of the information to criminally investigate or prosecute any alcohol or drug abuse patient.[facility] DublinIn the event this information is protected by the Federal Confidentiality of Alcohol and Drug Abuse Patient Records regulations: The Federal rules restrict any use of the information to criminally investigate or prosecute any alcohol or drug abuse patient.[facility] DublinIn the event this information is protected by the Federal Confidentiality of Alcohol and Drug Abuse Patient Records regulations: The Federal rules restrict any use of the information to criminally investigate or prosecute any alcohol or drug abuse patient.[facility] DublinIn the event this information is protected by the Federal Confidentiality of Alcohol and Drug Abuse Patient Records regulations: The Federal rules restrict any use of the information to criminally investigate or prosecute any alcohol or drug abuse patient.[facility] DublinIn the event this information is protected by the Federal Confidentiality of Alcohol and Drug Abuse Patient Records regulations: The Federal rules restrict any use of the information to criminally investigate or prosecute any alcohol or drug abuse patient.[facility] DublinIn the event this information is protected by the Federal Confidentiality of Alcohol and Drug Abuse Patient Records regulations: The Federal rules restrict any use of the information to criminally investigate or prosecute any alcohol or drug abuse patient.[facility] DublinIn the event this information is protected by the Federal Confidentiality of Alcohol and Drug Abuse Patient Records regulations: The Federal rules restrict any use of the information to criminally investigate or prosecute any alcohol or drug abuse patient.[facility] DublinIn the event this information is protected by the Federal Confidentiality of Alcohol and Drug Abuse Patient Records regulations: The Federal rules restrict any use of the information to criminally investigate or prosecute any alcohol or drug abuse patient.[facility] DublinIn the event this information is protected by the Federal Confidentiality of Alcohol and Drug Abuse Patient Records regulations: The Federal rules restrict any use of the information to criminally investigate or prosecute any alcohol or drug abuse patient.[facility] DublinIn the event this information is protected by the Federal Confidentiality of Alcohol and Drug Abuse Patient Records regulations: The Federal rules restrict any use of the information to criminally investigate or prosecute any alcohol or drug abuse patient.[facility] DublinIn the event this information is protected by the Federal Confidentiality of Alcohol and Drug Abuse Patient Records regulations: The Federal rules restrict any use of the information to criminally investigate or prosecute any alcohol or drug abuse patient.[facility] DublinIn the event this information is protected by the Federal Confidentiality of Alcohol and Drug Abuse Patient Records regulations: The Federal rules restrict any use of the information to criminally investigate or prosecute any alcohol or drug abuse patient.[facility] DublinIn the event this information is protected by the Federal Confidentiality of Alcohol and Drug Abuse Patient Records regulations: The Federal rules restrict any use of the information to criminally investigate or prosecute any alcohol or drug abuse patient.[facility] DublinIn the event this information is protected by the Federal Confidentiality of Alcohol and Drug Abuse Patient Records regulations: The Federal rules restrict any use of the information to criminally investigate or prosecute any alcohol or drug abuse patient.[facility] DublinIn the event this information is protected by the Federal Confidentiality of Alcohol and Drug Abuse Patient Records regulations: The Federal rules restrict any use of the information to criminally investigate or prosecute any alcohol or drug abuse patient.[facility] DublinIn the event this information is protected by the Federal Confidentiality of Alcohol and Drug Abuse Patient Records regulations: The Federal rules restrict any use of the information to criminally investigate or prosecute any alcohol or drug abuse patient.[facility] DublinIn the event this information is protected by the Federal Confidentiality of Alcohol and Drug Abuse Patient Records regulations: The Federal rules restrict any use of the information to criminally investigate or prosecute any alcohol or drug abuse patient.[facility] DublinIn the event this information is protected by the Federal Confidentiality of Alcohol and Drug Abuse Patient Records regulations: The Federal rules restrict any use of the information to criminally investigate or prosecute any alcohol or drug abuse patient.[facility] DublinIn the event this information is protected by the Federal Confidentiality of Alcohol and Drug Abuse Patient Records regulations: The Federal rules restrict any use of the information to criminally investigate or prosecute any alcohol or drug abuse patient.[facility] DublinIn the event this information is protected by the Federal Confidentiality of Alcohol and Drug Abuse Patient Records regulations: The Federal rules restrict any use of the information to criminally investigate or prosecute any alcohol or drug abuse patient.[facility] DublinIn the event this information is protected by the Federal Confidentiality of Alcohol and Drug Abuse Patient Records regulations: The Federal rules restrict any use of the information to criminally investigate or prosecute any alcohol or drug abuse patient.[facility] DublinIn the event this information is protected by the Federal Confidentiality of Alcohol and Drug Abuse Patient Records regulations: The Federal rules restrict any use of the information to criminally investigate or prosecute any alcohol or drug abuse patient.[facility] DublinIn the event this information is protected by the Federal Confidentiality of Alcohol and Drug Abuse Patient Records regulations: The Federal rules restrict any use of the information to criminally investigate or prosecute any alcohol or drug abuse patient.[facility] DublinIn the event this information is protected by the Federal Confidentiality of Alcohol and Drug Abuse Patient Records regulations: The Federal rules restrict any use of the information to criminally investigate or prosecute any alcohol or drug abuse patient.[facility] DublinIn the event this information is protected by the Federal Confidentiality of Alcohol and Drug Abuse Patient Records regulations: The Federal rules restrict any use of the information to criminally investigate or prosecute any alcohol or drug abuse patient.[facility] DublinIn the event this information is protected by the Federal Confidentiality of Alcohol and Drug Abuse Patient Records regulations: The Federal rules restrict any use of the information to criminally investigate or prosecute any alcohol or drug abuse patient.[facility] DublinIn the event this information is protected by the Federal Confidentiality of Alcohol and Drug Abuse Patient Records regulations: The Federal rules restrict any use of the information to criminally investigate or prosecute any alcohol or drug abuse patient.[facility] DublinIn the event this information is protected by the Federal Confidentiality of Alcohol and Drug Abuse Patient Records regulations: The Federal rules restrict any use of the information to criminally investigate or prosecute any alcohol or drug abuse patient.[facility] DublinIn the event this information is protected by the Federal Confidentiality of Alcohol and Drug Abuse Patient Records regulations: The Federal rules restrict any use of the information to criminally investigate or prosecute any alcohol or drug abuse patient.[facility] DublinIn the event this information is protected by the Federal Confidentiality of Alcohol and Drug Abuse Patient Records regulations: The Federal rules restrict any use of the information to criminally investigate or prosecute any alcohol or drug abuse patient.[facility] DublinIn the event this information is protected by the Federal Confidentiality of Alcohol and Drug Abuse Patient Records regulations: The Federal rules restrict any use of the information to criminally investigate or prosecute any alcohol or drug abuse patient.[facility] DublinIn the event this information is protected by the Federal Confidentiality of Alcohol and Drug Abuse Patient Records regulations: The Federal rules restrict any use of the information to criminally investigate or prosecute any alcohol or drug abuse patient.[facility] DublinIn the event this information is protected by the Federal Confidentiality of Alcohol and Drug Abuse Patient Records regulations: The Federal rules restrict any use of the information to criminally investigate or prosecute any alcohol or drug abuse patient.[facility] DublinIn the event this information is protected by the Federal Confidentiality of Alcohol and Drug Abuse Patient Records regulations: The Federal rules restrict any use of the information to criminally investigate or prosecute any alcohol or drug abuse patient.[facility] DublinIn the event this information is protected by the Federal Confidentiality of Alcohol and Drug Abuse Patient Records regulations: The Federal rules restrict any use of the information to criminally investigate or prosecute any alcohol or drug abuse patient.[facility] DublinIn the event this information is protected by the Federal Confidentiality of Alcohol and Drug Abuse Patient Records regulations: The Federal rules restrict any use of the information to criminally investigate or prosecute any alcohol or drug abuse patient.[facility] DublinIn the event this information is protected by the Federal Confidentiality of Alcohol and Drug Abuse Patient Records regulations: The Federal rules restrict any use of the information to criminally investigate or prosecute any alcohol or drug abuse patient.[facility] DublinIn the event this information is protected by the Federal Confidentiality of Alcohol and Drug Abuse Patient Records regulations: The Federal rules restrict any use of the information to criminally investigate or prosecute any alcohol or drug abuse patient.[facility] DublinIn the event this information is protected by the Federal Confidentiality of Alcohol and Drug Abuse Patient Records regulations: The Federal rules restrict any use of the information to criminally investigate or prosecute any alcohol or drug abuse patient.[facility] DublinIn the event this information is protected by the Federal Confidentiality of Alcohol and Drug Abuse Patient Records regulations: The Federal rules restrict any use of the information to criminally investigate or prosecute any alcohol or drug abuse patient.[facility] DublinIn the event this information is protected by the Federal Confidentiality of Alcohol and Drug Abuse Patient Records regulations: The Federal rules restrict any use of the information to criminally investigate or prosecute any alcohol or drug abuse patient.[facility] DublinIn the event this information is protected by the Federal Confidentiality of Alcohol and Drug Abuse Patient Records regulations: The Federal rules restrict any use of the information to criminally investigate or prosecute any alcohol or drug abuse patient.[facility] Reason for Visit (unrecogniz ed section and content) Reason Comments 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> S/p: AVASTIN OS 05/10/25 Specialty Diagnoses / Procedures Referred By Shasha mclain Referred To Contact Ophthalmology / OPHTHALMOLOGY Diagnoses Retinal neovascularization, unspecified, left eye *4-6 W, DFE/OCT, AVASTIN OS Procedures [place] BEVACIZUMAB INJECTION EST ADULT Belgica Landrum MD [address] Mail Code [address] [address] Phone: tel: fax: Belgica Landrum MD [address] Mail Code [address] [place] [address] Phone: tel: fax: Referral ID Status Reason Start Date Expiration Date V isits Requested Visits Authorized [id number] Authorized 04/05/2025 09/22/2025 99 99 Reason Comments Breast Cancer 1 year follow up Reason Comments Results Reason Comments Orders Reason Comments Breast Cancer 1 year follow up Reason Comments Follow-up Pt here for follow u p on urticaria and states she's doing well Reason Comments Patient Question Appointment Reason Comments 03/05/[address] Cardenas 03/17/2025 DX.RONNA/ GLORIA/THERESA Reason Comments Patient Update Concern for duodenal malignancy Reason Comments Pre-Op Visit Reason Comments Radiology CT Specialty Diagnoses / Procedures Referred By Contac t Referred To Contact CT IMAGING Diagnoses Intra-abdominal and pelvic swelling, mass and lump, unspecified site Procedures CT ABD/PEL W IVCON CT ABD & PELVIS W/CONTRAST Earl Cardenas MD [address] [place] [address] Phone: tel: fax: [facility] [place] [phone] Referral ID Status Reason Start Date Expiration Date V isits Requested Visits Authorized [id number] Closed Auto-Generate d Referral 02/25/2025 03/27/2026 1 1 Reason Comments Radiology MRI Specialty Diagnoses / Procedures Referred By Contac t Referred To Contact MR IMAGING Diagnoses Liver mass Procedures MRI LIVER WO/W IVCON MRI ABDOMEN W/O & W/CONTRAST MATERIAL Earl Cardenas MD [address] [place] [address] Phone: tel: fax: [facility] [place] [phone] Referral ID Status Reason Start Date Expiration Date V isits Requested Visits Authorized [id number] Closed Auto-Generate d Referral 02/26/2025 03/28/2026 1 1 Reason Comments Consult Specialty Diagnoses / Procedures Referred By Contac t Referred To Contact Hematology Diagnoses Iron deficiency anemia due to chronic blood loss Procedures CONSULT TO HEMATOLOGY OFFICE/OUTPATIENT [facility] 60 MINUTES Earl Cardenas MD [address] [place] [address] Phone: tel: fax: Referral ID Status Reason Start Date Expiration Date V isits Requested Visits Authorized [id number] Closed PCP Requested Referral 03/05/2025 03/05/2026 1 1 Reason Comments Consult Reason Comments Pre-Op Exam Reason Comments Medication Problem Reason Comments Macular Degeneration Evaluation Specialty Diagnoses / Procedures Referred By Contac t Referred To Contact Ophthalmology Diagnoses Macular degeneration, unspecified laterality, unspecified type Procedures CONSULT TO OPHTHALMOLOGY OFFICE/OUTPATIENT [facility] 60 MINUTES Daniel Grijalva PA-C [address] [place] [address] Phone: tel: fax: Referral ID Status Reason Start Date Expiration Date V isits Requested Visits Authorized [id number] Closed PCP Requested Referral 03/31/2025 03/24/2026 1 1 Reason Comments Nutrition Assessment Reason Comments Post Op Reason Comments Care Coordination Pre treatment call Reason Comments Established Patient Reason Comments Research CASE [id number] IRB 15-15 80 Reason Comments First Time Treatment Education Folfox/At ezo Reason Comments Central Serous Chorioretinopathy Follow Up S/p Avastin OS 04/05/2025 Reason Comments Chemotherapy Follow-up C1D1 Reason Comments Established Patient Reason Comments Diarrhea Reason Comments 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 Specialist - Other Symptom update Reason Comments Care Coordination Symptom Management Care Teams (unrecognized sec tion and content) Bending Roll Operator Relationship Specialty Start Date End Date Jamie Ramirez MD PCP - General Family Practice 02/03/18 Bending Roll Operator Relationship Specialty Start Date End Date Jamie Ramirez MD PCP - General Family Medicine 02/03/18 Bending Roll Operator Relationship Specialty Start Date End Date Jamie Ramirez MD PCP - General Family Medicine 02/03/18 Bending Roll Operator Relationship Specialty Start Date End Date Jamie Ramirez MD PCP - General Family Medicine 02/03/18 Bending Roll Operator Relationship Specialty Start Date End Date Jamie Ramirez MD [address] [place] [address] PCP - General Family Medicine 03/11/23 Bending Roll Operator Relationship Specialty Start Date End Date Jamie Ramirez MD [address] [place] [address] PCP - General Family Medicine 03/11/23 Bending Roll Operator Relationship Specialty Start Date End Date Jamie Ramirez MD PCP - General Family Medicine 02/03/18 Bending Roll Operator Relationship Specialty Start Date End Date Jamie Ramirez MD PCP - General Family Medicine 02/03/18 Bending Roll Operator Relationship Specialty Start Date End Date Jamie Ramirez MD PCP - General Family Medicine 02/03/18 Bending Roll Operator Relationship Specialty Start Date End Date Jamie Ramirez MD PCP - General Family Medicine 02/03/18 Tyra Valadez DO [address] [address] Family Medicine 03/01/25 Bending Roll Operator Relationship Specialty Start Date End Date Jamie Ramirez MD PCP - General Family Medicine 02/03/18 Tyra Valadez DO [address] [address] Family Medicine 03/01/25 Bending Roll Operator Relationship Specialty Start Date End Date Jamie Ramirez MD PCP - General Family Medicine 02/03/18 Tyra Valadez DO [address] [address] Family Medicine 03/01/25 Bending Roll Operator Relationship Specialty Start Date End Date Jamie Ramirez MD PCP - General Family Medicine 02/03/18 Tyra Valadez DO [address] [place] [address] Family Medicine 03/01/25 Bending Roll Operator Relationship Specialty Start Date End Date Jamie Ramirez MD PCP - General Family Medicine 02/03/18 Tyra Valadez DO [address] [place] [address] Family Medicine 03/01/25 Bending Roll Operator Relationship Specialty Start Date End Date Jamie Ramirez MD PCP - General Family Medicine 02/03/18 Tyra Valadez DO [address] [place] [address] Family Medicine 03/01/25 Bending Roll Operator Relationship Specialty Start Date End Date Jamie Ramirez MD PCP - General Family Medicine 02/03/18 Tyra Valadez DO [address] [place] [address] Family Medicine 03/01/25 Bending Roll Operator Relationship Specialty Start Date End Date Jamie Ramirez MD PCP - General Family Medicine 02/03/18 Tyra Valadez DO [address] [place] [address] Family Medicine 03/01/25 Bending Roll Operator Relationship Specialty Start Date End Date Jamie Ramirez MD PCP - General Family Medicine 02/03/18 Tyra Valadez DO [address] [place] [address] Family Medicine 03/01/25 Bending Roll Operator Relationship Specialty Start Date End Date Jamie Ramirez MD PCP - General Family Medicine 02/03/18 Tyra Valadez DO [address] [place] [address] Family Medicine 03/01/25 Bending Roll Operator Relationship Specialty Start Date End Date Jamie Ramirez MD PCP - General Family Medicine 02/03/18 Tyra Valadez DO [address] [place], [place] [id number] Family Medicine 03/01/25 Bending Roll Operator Relationship Specialty Start Date End Date Jamie Ramirez MD PCP - General Family Medicine 02/03/18 Tyra Valadez DO [address] [place], [place] [id number] Family Medicine 03/01/25 Bending Roll Operator Relationship Specialty Start Date End Date Jamie Ramirez MD PCP - General Family Medicine 02/03/18 Tyra Valadez DO [address] [place] [address] Family Medicine 03/01/25 Bending Roll Operator Relationship Specialty Start Date End Date Jamie Ramirez MD PCP - General Family Medicine 02/03/18 Tyra Valadez DO [address] [place] [address] Family Medicine 03/01/25 Bending Roll Operator Relationship Specialty Start Date End Date Jamie Ramirez MD PCP - General Family Medicine 02/03/18 Tyra Valadez DO [address] [place] [address] Family Medicine 03/01/25 Bending Roll Operator Relationship Specialty Start Date End Date Jamie Ramirez MD PCP - General Family Medicine 02/03/18 Tyra Valadez DO [address] [place] [address] Family Medicine 03/01/25 Bending Roll Operator Relationship Specialty Start Date End Date Jamie Ramirez MD PCP - General Family Medicine 02/03/18 Tyra Valadez DO [address] [place] [address] Family Medicine 03/01/[address] [place], [place] [phone] Nutrition 04/09/25 Bending Roll Operator Relationship Specialty Start Date End Date Jamie Ramirez MD PCP - General Family Medicine 02/03/18 Tyra Valadez DO [address] [place] [address] Family Medicine 03/01/[address] [place] [address] Nutrition 04/09/25 Bending Roll Operator Relationship Specialty Start Date End Date Jamie Ramirez MD PCP - General Family Medicine 02/03/18 Tyra Valadez DO [address] [place], [place] [id number] Family Medicine 03/01/[address] [place] [address] Nutrition 04/09/25 Bending Roll Operator Relationship Specialty Start Date End Date Jamie Ramirez MD PCP - General Family Medicine 02/03/18 Tyra Valadez DO [address] [place], [place] [id number] Family Medicine 03/01/[address] [place] [address] Nutrition 04/09/25 Bending Roll Operator Relationship Specialty Start Date End Date Jamie Ramirez MD PCP - General Family Medicine 02/03/18 Tyra Valadez DO [address] [address] Family Medicine 03/01/[address] [place] [phone] Nutrition 04/09/25 Lori Tran, RN Specialty 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 Specialist Hematology/Oncology 04/09/25 [place] [address] [place] [address] Physician Oncology 04/09/25 Bending Roll Operator Relationship Specialty Start Date End Date Jamie Ramirez MD PCP - General Family Medicine 02/03/18 Tyra Valadez DO [address] [id number] Family Medicine 03/01/[address] [place] [address] Nutrition 04/09/25 Lori Tran, RN Specialty 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 Specialist Hematology/Oncology 04/09/25 [place] [address] [place] [address] Physician Oncology 04/09/25 Bending Roll Operator Relationship Specialty Start Date End Date Jamie Ramirez MD PCP - General Family Medicine 02/03/18 Tyra Valadez DO [address] [id number] Family Medicine 03/01/[address] [place], [place] [phone] Nutrition 04/09/25 Lori Tran, JEANETTE Specialty 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 Specialist Hematology/Oncology 04/09/25 [place] [address] [place], [place] [phone] Physician Oncology 04/09/25 Bending Roll Operator Relationship Specialty Start Date End Date Jamie Ramirez MD PCP - General Family [facility] 02/03/18 Tyra Valadez DO [address] [id number] Family Medicine 03/01/[address] [place], [place] [phone] Nutrition 04/09/25 Lori Tran, RN Specialty 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 Specialist Hematology/Oncology 04/09/25 [place] [address] [place], [place] [phone] Physician Oncology 04/09/25 Bending Roll Operator Relationship Specialty Start Date End Date Jamie Ramirez MD PCP - General Family Medicine 02/03/18 Tyra Valadez DO [address] [facility] [address] [place] [address] Family Medicine 03/01/[address] [place] [address] Nutrition 04/09/25 Lori Tran, RN Specialty 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 Specialist Hematology/Oncology 04/09/25 [place] [address] [place] [address] Physician Oncology 04/09/25 Bending Roll Operator Relationship Specialty Start Date End Date Jamie Ramirez MD PCP - General Family Medicine 02/03/18 Tyra Valadez DO [address] [facility] [address] [place] [address] Family Medicine 03/01/[address] [place] [address] Nutrition 04/09/25 Lori Tran, RN Specialty 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 Specialist Hematology/Oncology 04/09/25 [place] [address] [place] [address] Physician Oncology 04/09/25 Bending Roll Operator Relationship Specialty Start Date End Date Jamie Ramirez MD PCP - General Family Medicine 02/03/18 Tyra Valadez DO [address] [facility] [address] [place], [place] [id number] Family Medicine 03/01/[address] [place] [address] Nutrition 04/09/25 Lori Tran, RN Specialty 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 Specialist Hematology/Oncology 04/09/25 [place] [address] [place] [address] Physician Oncology 04/09/25 Itzel Ni LISW Screen Printer Helper Oncology 05/07/25 Bending Roll Operator Relationship Specialty Start Date End Date Jamie Ramirez MD PCP - General Family Medicine 02/03/18 Tyra Valadez DO [address] [address] Family Medicine 03/01/[address] [place] [address] Nutrition 04/09/25 Lori Tran, RN Specialty 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 Specialist Hematology/Oncology 04/09/25 [place] [address] [place] [address] Physician Oncology 04/09/25 Itzel Ni LISW Screen Printer Helper Oncology 05/07/25 Bending Roll Operator Relationship Specialty Start Date End Date Jamie Ramirez MD PCP - General Family Medicine 02/03/18 Tyra Valadez DO [address] [id number] Family Medicine 03/01/[address] [place] [address] Nutrition 04/09/25 Lori Tran, RN Specialty 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 Specialist Hematology/Oncology 04/09/25 [place] [address] [place] [address] Physician Oncology 04/09/25 Itzel Ni LISW Screen Printer Helper Oncology 05/07/25 Bending Roll Operator Relationship Specialty Start Date End Date Jamie Ramirez MD PCP - General Family Medicine 02/03/18 Tyra Valadez DO [address] [address] Family Medicine 03/01/[address] [place] [address] Nutrition 04/09/25 Lori Tran, RN Specialty 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 Specialist Hematology/Oncology 04/09/25 [place] [address] [place] [address] Physician Oncology 04/09/25 Itzel Ni LISW Screen Printer Helper Oncology 05/07/25 Bending Roll Operator Relationship Specialty Start Date End Date Jamie Ramirez MD PCP - General Family Medicine 02/03/18 Tyra Valadez DO [address] [facility] [address] [place], [place] [id number] Family Medicine 03/01/[address] [place] [address] Nutrition 04/09/25 Lori Tran, RN Specialty 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 Specialist Hematology/Oncology 04/09/25 [place] [address] [place] [address] Physician Oncology 04/09/25 Bending Roll Operator Relationship Specialty Start Date End Date Jamie Ramirez MD PCP - General Family Medicine 02/03/18 Tyra Valadez DO [address] [address] Family Medicine 03/01/[address] [place] [address] Nutrition 04/09/25 Lori Tran, RN Specialty 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 Specialist Hematology/Oncology 04/09/25 [place] [address] [place] [address] Physician Oncology 04/09/25 Itzel Ni LISW Screen Printer Helper Oncology 05/07/25 Bending Roll Operator Relationship Specialty Start Date End Date Jamie Ramirez MD PCP - General Family Medicine 02/03/18 Tyra Valadez DO [address] [facility] [address] [place], [place] [id number] Family Medicine 03/01/[address] [place] [address] Nutrition 04/09/25 Lori Tran, JEANETTE Specialty 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 Specialist Hematology/Oncology 04/09/25 [place] [address] [place] [address] Physician Oncology 04/09/25 Itzel Ni LISW Screen Printer Helper Oncology 05/07/25 Bending Roll Operator Relationship Specialty Start Date End Date Jamie Ramirez MD PCP - General Family Medicine 02/03/18 Tyra Valadez DO [address] [address] Family Medicine 03/01/[address] [place] [address] Nutrition 04/09/25 Lori Tran, JEANETTE Specialty 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 Specialist Hematology/Oncology 04/09/25 [place] [address] [place] [address] Physician Oncology 04/09/25 Itzel Ni LISW Screen Printer Helper Oncology 05/07/25 Bending Roll Operator Relationship Specialty Start Date End Date Jamie Ramirez MD PCP - General Family Medicine 02/03/18 Tyra Valadez DO [address] [facility] [address] [place] [address] Family Medicine 03/01/[address] [place] [address] Nutrition 04/09/25 Lori Tran, JEANETTE Specialty 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 Specialist Hematology/Oncology 04/09/25 [place] [address] [place] [address] Physician Oncology 04/09/25 Itzel Ni LISW Screen Printer Helper Oncology 05/07/25 Bending Roll Operator Relationship Specialty Start Date End Date Jamie Ramirez MD PCP - General Family Medicine 02/03/18 Tyra Valadez DO [address] [address] Family Medicine 03/01/[address] [place] [address] Nutrition 04/09/25 Lori Tran, JEANETTE Specialty 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 Specialist Hematology/Oncology 04/09/25 [place] [address] [place] [address] Physician Oncology 04/09/25 Itzel Ni LISW Screen Printer Helper Oncology 05/07/25 Bending Roll Operator Relationship Specialty Start Date End Date Jamie Ramirez MD PCP - General Family Medicine 02/03/18 Tyra Valadez DO [address] [address] Family Medicine 03/01/[address] [place] [address] Nutrition 04/09/25 Lori Tran, JEANETTE Specialty 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 Specialist Hematology/Oncology 04/09/25 [place] [address] [place] [address] Physician Oncology 04/09/25 Itzel Ni LISW Screen Printer Helper Oncology 05/07/25 Bending Roll Operator Relationship Specialty Start Date End Date Jamie Ramirez MD PCP - General Family Medicine 02/03/18 Tyra Valadez DO [address] [address] Family Medicine 03/01/[address] [place] [address] Nutrition 04/09/25 Lori Tran, JEANETTE Specialty 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 Specialist Hematology/Oncology 04/09/25 [place] [address] [place] [address] Physician Oncology 04/09/25 Itzel Ni LISW Screen Printer Helper Oncology 05/07/25 Bending Roll Operator Relationship Specialty Start Date End Date Jamie Ramirez MD PCP - General Family Medicine 02/03/18 Tyra Valadez DO [address] [address] Family Medicine 03/01/[address] [place] [address] Nutrition 04/09/25 Lori Tran, RN Specialty 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 Specialist Hematology/Oncology 04/09/25 [place] [address] [place] [address] Physician Oncology 04/09/25 Itzel Ni LISW Screen Printer Helper Oncology 05/07/25 Bending Roll Operator Relationship Specialty Start Date End Date Jamie Ramirez MD PCP - General Family Medicine 02/03/18 Tyra Valadez DO [address] [address] Family Medicine 03/01/[address] [place] [address] Nutrition 04/09/25 Lori Tran, JEANETTE Specialty 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 Specialist Hematology/Oncology 04/09/25 [place] [address] [place] [address] Physician Oncology 04/09/25 Itzel Ni LISW Screen Printer Helper Oncology 05/07/25 Bending Roll Operator Relationship Specialty Start Date End Date Jamie Ramirez MD PCP - General Family Medicine 02/03/18 Tyra Valadez DO [address] [address] Family Medicine 03/01/[address] [place] [address] Nutrition 04/09/25 Lori Tran, RN Specialty 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 Specialist Hematology/Oncology 04/09/25 [place] [address] [place] [phone] Physician Oncology 04/09/25 Itzel Ni LISW Screen Printer Helper Oncology 05/07/25 FOR RECORDS PERTAINING TO PATIENTS WHO ARE [...] BE BASED ON THE PRIMARY CLINICAL RECORDS. [employer] [facility]. provides no warranty or guarantee of the accuracy or completeness of information in this document.
[2025-07-12 15:57] LABS: Hematocrit 35.6 % (36.0-48.0); Hemoglobin 12.0 g/dL (12.0-16.0); Immature Granulocytes Abs Auto 0.00 10^3/uL (0.00-0.03); Immature Granulocytes Pct Auto 0.0 % (0.0-0.5); Lymphocytes Absolute Auto 0.9 10^3/uL (1.2-3.8); Mean Corpuscular HGB Conc 33.7 g/dL (29.9-35.2); Mean Corpuscular Hemoglobin 30.8 pg (26.7-34.0); Mean Corpuscular Volume 91.5 fL (81.0-99.0); Platelet Count 128 10^3/uL (150-450); Red Blood Count 3.89 10^6/uL (4.20-5.40); White Blood Count 3.7 10^3/uL (4.0-11.0)
[2025-07-12 16:06] LABS: Alanine Aminotransferase 105 U/L (14-59); Albumin Globulin Ratio 1.1; Albumin Level 3.4 g/dL (3.4-5.0); Alkaline Phosphatase 131 U/L (46-116); Anion Gap 11.0; Aspartate Amino Transferase 59 U/L (15-37); Blood Urea Nitrogen 6.0 mg/dL (7.0-18.0); Calcium 8.5 mg/dL (8.5-10.1); Carbon Dioxide 29.0 mmol/L (21.0-32.0); Chloride 108 mmol/L (98-107); Estimated GFR (African America >60 (>=60 mL/min/1.73m^2); Estimated GFR (Non-African Ame >60 (>=60 mL/min/1.73m^2); Globulin 3.2 g/dL; Glucose 109 mg/dL (74-106); Potassium 3.0 mmol/L (3.5-5.1); Sodium 145 mmol/L (136-145); Total Protein 6.6 g/dL (6.4-8.2)
--- NOTE | 2025-07-12 16:47 | ED.GENADUL1 ---
HPI HPI - General Adult General Chief complaint: Recheck/Abnormal Lab/Rx Stated complaint: JERKING MOTION WHEN SPEAKING Time Seen by Provider: 07/12/25 15:19 Source: patient Mode of arrival: walk-in Limitations: no limitations History of Present Illness HPI narrative: cc - twitching The patient states that she started to develop a strange twitching activity that almost is like a hard swallow that seem to worsen when she started low-dose Seroquel. 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 She called to talk with her oncology team about the symptoms, thinking it may be related to the Seroquel use, they asked her to come to the ED for evaluation to make sure I did not have a TIA or something . She has no weakness, motor or sensory changes in the upper or lower extremities or in the face. No ataxia. No dizziness. No visual change. No headache. No recent injury to the head or neck. Related Data Home Medications ?Medication ?Instructions ?Recorded ?Confirmed fluconazole 100 mg tablet mg 07/12/25 levothyroxine 100 mcg tablet mcg 07/12/25 xzxqpt-remxobjh-helxlvi (porcine) PO 07/12/25 20,880-78,300-78,300 unit tablet (Viokace) olanzapine 2.5 mg tablet mg 07/12/25 ondansetron 4 mg disintegrating mg 07/12/25 tablet pantoprazole 40 mg tablet,delayed mg PO 07/12/25 release rosuvastatin 10 mg tablet mg 07/12/25 Allergies Allergy/AdvReac Type Severity Reaction Status Date / Time No Known Drug Allergies Allergy Verified 07/12/25 14:56 PFSH PFSH Social History Little interest or pleasure in doing things: not at all Feeling down, depressed, or hopeless: not at all Exam Narrative Exam Narrative: Nurses notes and vital signs reviewed and patient is not hypoxic. afebrile General: Well-appearing and in no apparent distress. Skin: Warm, dry, no pallor noted. No rash. Head: Normocephalic, atraumatic. Eye: Pupils are equal, round and EOMI. No scleral icterus. Ears, Nose, Mouth, and Throat: Oral mucosa is moist Cardiovascular: Regular Rate and Rhythm without murmur, gallop or rub. Respiratory: No accessory muscle use or respiratory distress. Lungs are clear to auscultation, no wheezing, rales or rhonchi Chest Wall: no tenderness Back: No midline thoracic or lumbar vertebral tenderness. No CVA tenderness Musculoskeletal: normal ROM, no calf or popliteal tenderness, no lower extremity edema/swelling GI: Abdomen is soft, non-distended. Normal bowel sounds. No masses appreciated. No tenderness to palpation. No rebound, guarding, or rigidity noted. Neurological: A&O x4. No cranial nerve dysfunction observed. No truncal ataxia. Moves all extremities. Sensation intact. Psychiatric: Cooperative and interactive. Normal mood and affect. Constitutional Vital Signs, click to edit/add: Last Vital Signs Temp 98.5 F 07/12/25 14:52 Pulse 75 07/12/25 14:52 Resp 18 07/12/25 14:52 BP 133/70 07/12/25 14:52 Pulse Ox 99 07/12/25 14:52 O2 Del Method Room Air 07/12/25 14:52 Course Vital Signs Vital signs: Vital Signs Temperature 98.5 F 07/12/25 14:52 Pulse Rate 75 07/12/25 14:52 Respiratory Rate 18 07/12/25 14:52 Blood Pressure 133/70 07/12/25 14:52 Pulse Oximetry 99 07/12/25 14:52 Oxygen Delivery Method Room Air 07/12/25 14:52 Temperature 98.5 F 07/12/25 14:52 Pulse Rate 75 07/12/25 14:52 Respiratory Rate 18 07/12/25 14:52 Blood Pressure 133/70 07/12/25 14:52 Pulse Oximetry 99 07/12/25 14:52 Oxygen Delivery Method Room Air 07/12/25 14:52 Medical Decision Making MDM Narrative Medical decision making narrative: Patient was sent for noncontrast CT scan of the brain to evaluate for stroke versus TIA versus intracranial mass or other worrisome pathology associated with these episodes of twitching. Blood was also obtained and sent for testing. White blood cell count is slightly decreased at 3.7. Normal hemoglobin. CMP is notable for slightly decreased potassium at 3.0. She will be given oral potassium for repletion. Renal function is normal. LFTs show elevation of AST, ALT and alk phos. The values are noted below. On examination, I do not note any neurological deficits to suggest stroke or TIA. The patient was ordered to receive potassium orally. She was informed of results and given reassurance and then discharged home with recommendation to contact her oncology team for any changes in meds that they might recommend in association with the symptoms. Of note, the patient did not have any symptoms while in the emergency department. Seem to have dissipated since she took a nap this afternoon. Lab Data Lab results reviewed: Yes I reviewed the patient's lab results Labs: Lab Results 07/12/25 Range/Units 15:33 WBC 3.7 L (4.0-11.0) 10^3/uL RBC 3.89 L (4.20-5.40) 10^6/uL Hgb 12.0 (12.0-16.0) g/dL Hct 35.6 L (36.0-48.0) % MCV 91.5 (81.0-99.0) fL MCH 30.8 (26.7-34.0) pg MCHC 33.7 (29.9-35.2) g/dL RDW 15.6 H (11.0-15.0) % Plt Count 128 L (150-450) 10^3/uL MPV 9.7 (9.5-13.5) fL Neut % (Auto) 61.3 (43.0-75.0) % Lymph % (Auto) 22.7 (20.5-60.0) % Dickenson % (Auto) 11.2 (1.7-12.0) % Eos % (Auto) 4.8 (0.9-7.0) % Baso % (Auto) 0.0 L (0.2-2.0) % Neut # (Auto) 2.3 (1.4-6.5) 10^3/uL Lymph # (Auto) 0.9 L (1.2-3.8) 10^3/uL Dickenson # (Auto) 0.4 (0.3-0.8) 10^3/uL Eos # (Auto) 0.2 (0.0-0.7) 10^3/uL Baso # (Auto) 0.0 (0.0-0.1) 10^3/uL Abs Immat Gran (auto) 0.00 (0.00-0.03) 10^3/uL Imm/Tot Granulo (auto) 0.0 (0.0-0.5) % Sodium 145 (136-145) mmol/L Potassium 3.0 L (3.5-5.1) mmol/L Chloride 108 H (98-107) mmol/L Carbon Dioxide 29.0 (21.0-32.0) mmol/L Anion Gap 11.0 BUN 6.0 L (7.0-18.0) mg/dL Creatinine 0.58 (0.55-1.02) mg/dL Est GFR ( Amer) >60 (>=60 mL/min/1.73m^2) Est GFR (Non-Af Amer) >60 (>=60 mL/min/1.73m^2) BUN/Creatinine Ratio 10.3 Glucose 109 H (74-106) mg/dL Calcium 8.5 (8.5-10.1) mg/dL Total Bilirubin 0.4 (0.2-1.0) mg/dL AST 59 H (15-37) U/L ALT 105 H (14-59) U/L Alkaline Phosphatase 131 H (46-116) U/L Total Protein 6.6 (6.4-8.2) g/dL Albumin 3.4 (3.4-5.0) g/dL Globulin 3.2 g/dL Albumin/Globulin Ratio 1.[address] scan - head: Radiologist's impression: ITS Impressions Brain CT 07/12/25 15:27 IMPRESSION: AGE-RELATED CHANGES. MILD SINUS DISEASE. NO DEFINITE ACUTE INTRACRANIAL ABNORMALITY. FOLLOW-UP IS RECOMMENDED, SYMPTOMS WARRANT.. Comment: Findings were discussed with Dr. Rose at 1543 hours Impression dictated by: Haley Medrano M.D. 07/12/2025 3:44 PM Dictation Location: [place] [address] Electronically authenticated by: [id number] Y Date: 07/12/2025 15:44 Discharge Plan Discharge Chief Complaint: Recheck/Abnormal Lab/Rx Clinical Impression: Acute hypokalemia Patient Disposition: Home, Self-Care Time of Disposition Decision: 16:51 Prescriptions / Home Meds: No Action fluconazole 100 mg tablet olanzapine 2.5 mg tablet levothyroxine 100 mcg tablet pantoprazole 40 mg tablet,delayed release (DR/EC) PO ondansetron 4 mg tablet,disintegrating rosuvastatin 10 mg tablet Viokace 20,880-78,300- 78,300 unit tablet PO Print Language: Ethiopian Instructions: Hypokalemia (ED) Referrals: Rubina Lombardi MD [Primary Care Provider, Family Practice] - 1 week
[2025-07-12] MEDS: POTASSIUM CHLORIDE 10 MEQ ER TABLET 40 MEQ PO (17:00)
[2025-07-12 17:11] VITALS: BP 120/61; PULSE 78; O2SAT 94
== END 2025-07-12 17:13 | disposition home or self-care (01) ==
PROVIDERS: Emergency Provider Emergency Medicine; PCP Family Medicine
DX: E87.6 Hypokalemia (principal); C17.0 Malignant neoplasm of duodenum; Z92.21 Personal history of antineoplastic chemotherapy; Z79.899 Other long term (current) drug therapy
CPT/HCPCS: 36415; 70450; 80053; 85025; 99284